=== PATIENT | female | born 1935 | race Caucasian/White ===

== ENCOUNTER → 2017-03-22 | Outpatient (CLI) | payer MEDICARE, BC ==
--- NOTE | 2017-03-22 23:29 | XR ---
EXAMINATION TYPE: XR chest 2V DATE OF EXAM: 03/22/2017 COMPARISON: NONE INDICATION: Dyspnea history of right breast cancer TECHNIQUE: Frontal and lateral views of the chest are obtained. FINDINGS: The heart size is normal. The pulmonary vasculature is normal. The lungs are clear. There is increased area of density in the retrocardiac region. Some air appears to be within loops of bowel in this region. 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 Hiatal hernia could be considered. IMPRESSION: 1. No acute pulmonary process. 2. 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 Hiatal hernia could be within the differential.
--- NOTE | 2017-03-28 07:29 | USB ---
Reason for exam: clinical finding. Indicated problem(s): other indicated problem in both breasts. Physical Findings: Nurse Summary: A limited breast exam was performed patient states too painful (nurse kp). US Breast BILAT Left breast ultrasound includes all four quadrants, the retroareolar region and axilla. Finding demonstrates no cystic or solid lesion seen. Right breast ultrasound demonstrates no cystic or solid lesion seen. These results were verbally communicated with the patient and result sheet given to the patient on 03/22/17. ASSESSMENT: Negative, BI-RAD 1 RECOMMENDATION: Routine screening mammogram of the left breast. Back on schedule, no priors here. Manage on a clinical basis with regard to pain.
== END | disposition home or self-care (01) ==
LOC: RADUSWWP 09:26
PROVIDERS: ATTEND Family Medicine
DX: R06.00 Dyspnea, unspecified (principal); Z85.3 Personal history of malignant neoplasm of breast
CPT/HCPCS: 71020

== ENCOUNTER 2017-04-01 11:26 | Inpatient (IN) | payer MEDICARE, BC ==
[2017-04-01] MEDS ORDERED: SODIUM CHLORIDE 0.9% 1,000 ML IV STA (11:59)
[2017-04-01] MEDS ORDERED: methylPREDNISolone SOD SUCCI 125 MG/2 ML VIAL IV STA (11:59)
[2017-04-01] MEDS ORDERED: IPRATROPIUM-ALBUTEROL 3 ML NEB INHALATION STA ×2 (11:59→13:16)
--- NOTE | 2017-04-01 12:03 | ED ---
SOB HPI - General Chief Complaint: Shortness of Breath Stated Complaint: KRISTA Time Seen by Provider: 04/01/17 11:45 Source: patient, family, RN notes reviewed Mode of arrival: wheelchair Limitations: no limitations - History of Present Illness Initial Comments: This is a 82-year-old female history of COPD who had the onset last evening of shortness of breath she has had a nonproductive cough some rhinorrhea no reports of fever though she did have a 99 temperature on arrival here today. She denies any chest pain or other symptoms at this time. She does feel weak however and again she does have the progressive dyspnea. MD Complaint: shortness of breath, cough - Related Data Home Medications Medication Instructions Recorded Confirmed Furosemide [Lasix] 40 mg PO DAILY 04/01/17 04/01/17 Levothyroxine Sodium [Synthroid] 50 mcg PO DAILY 04/01/17 04/01/17 Potassium Chloride [K-Tab ER] 10 meq PO DAILY 04/01/17 04/01/17 Raloxifene [Evista] 60 mg PO DAILY 04/01/17 04/01/17 Allergies Allergy/AdvReac Type Severity Reaction Status Date / Time No Known Allergies Allergy Verified 04/01/17 11:56 Review of Systems ROS Statement: Those systems with pertinent positive or pertinent negative responses have been documented in the HPI. ROS Other: All systems not noted in ROS Statement are negative. 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 History of Any Multi-Drug Resistant Organisms: None Reported Additional Past Surgical History / Comment(s): right mastectomy Past Psychological History: No Psychological Hx Reported Smoking Status: Never smoker Past Alcohol Use History: None Reported Past Drug Use History: None Reported General Exam - General Exam Comments Initial Comments: This a well-developed well-nourished awake alert oriented 3 female Limitations: no limitations General appearance: alert, in no apparent distress Head exam: Present: atraumatic, normocephalic, normal inspection Eye exam: Present: normal appearance, PERRL, EOMI. Absent: scleral icterus, conjunctival injection, periorbital swelling ENT exam: Present: mucous membranes dry Neck exam: Present: normal inspection. Absent: tenderness, meningismus, lymphadenopathy Respiratory exam: Present: wheezes, decreased breath sounds. Absent: respiratory distress, rales, rhonchi, stridor Cardiovascular Exam: Present: regular rate, normal rhythm, normal heart sounds. Absent: systolic murmur, diastolic murmur, rubs, gallop, clicks GI/Abdominal exam: Present: soft, normal bowel sounds. Absent: distended, tenderness, guarding, rebound, rigid Extremities exam: Present: normal inspection, full ROM, normal capillary refill. Absent: tenderness, pedal edema, joint swelling, calf tenderness Back exam: Present: normal inspection Neurological exam: Present: alert, oriented X3, CN II-XII intact Psychiatric exam: Present: normal affect, normal mood Skin exam: Present: warm, dry, intact, normal color. Absent: rash Course Vital Signs 04/01/17 04/01/17 04/01/17 11:35 12:07 12:17 Temperature 99.5 F Pulse Rate 105 H 94 89 Respiratory 20 Rate Blood Pressure 133/67 O2 Sat by Pulse 97 Oximetry 04/01/17 04/01/17 04/01/17 12:23 12:53 13:20 Temperature Pulse Rate 86 80 86 Respiratory Rate Blood Pressure 131/91 129/70 O2 Sat by Pulse 91 L 93 L Oximetry 04/01/17 04/01/17 13:23 13:29 Temperature Pulse Rate 88 Respiratory Rate Blood Pressure O2 Sat by Pulse 99 Oximetry - Reevaluation(s) Reevaluation #1: 04/01/17 14:07 I did reevaluate patient several occasions she is getting little improvement in her ability to breathe or saturation appears be adequate Medical Decision Making - Medical Decision Making Patient continues had difficult breathing cough in spite of the medication was given. Patient will be admitted I did discuss case with Dr. Zhong. - Lab Data Result diagrams: 04/01/17 11:55 04/01/17 11:55 Lab Results 04/01/17 04/01/17 04/01/17 Range/Units 11:55 11:55 11:55 WBC 8.1 (3.8-10.6) k/uL RBC 4.28 (3.80-5.40) m/uL Hgb 13.0 (11.4-16.0) gm/dL Hct 40.5 (34.0-46.0) % MCV 94.8 (80.0-100.0) fL MCH 30.3 (25.0-35.0) pg MCHC 32.0 (31.0-37.0) g/dL RDW 13.8 (11.5-15.5) % Plt Count 276 (150-450) k/uL Neutrophils % 63 % Lymphocytes % 23 % Monocytes % 8 % Eosinophils % 2 % Basophils % 1 % Neutrophils # 5.0 (1.3-7.7) k/uL Lymphocytes # 1.9 (1.0-4.8) k/uL Monocytes # 0.6 (0-1.0) k/uL Eosinophils # 0.2 (0-0.7) k/uL Basophils # 0.1 (0-0.2) k/uL PT (9.0-12.0) sec INR (<1.2) APTT (22.0-30.0) sec Sodium 143 (137-145) mmol/L Potassium 3.9 (3.5-5.1) mmol/L Chloride 108 H (98-107) mmol/L Carbon Dioxide 26 (22-30) mmol/L Anion Gap 9 mmol/L BUN 21 H (7-17) mg/dL Creatinine 0.97 (0.52-1.04) mg/dL Est GFR (MDRD) Af Amer >60 (>60 ml/min/1.73 sqM) Est GFR (MDRD) Non-Af 55 (>60 ml/min/1.73 sqM) Glucose 169 H (74-99) mg/dL Calcium 9.3 (8.4-10.2) mg/dL Magnesium 2.1 (1.6-2.3) mg/dL Total Bilirubin 0.2 (0.2-1.3) mg/dL AST 24 (14-36) U/L ALT 27 (9-52) U/L Alkaline Phosphatase 58 (38-126) U/L Total Creatine Kinase 119 (30-135) U/L CK-MB (CK-2) 1.7 (0.0-2.4) ng/mL CK-MB (CK-2) Rel Index 1.4 Troponin I <0.012 (0.000-0.034) ng/mL NT-Pro-B Natriuret Pep pg/mL Total Protein 7.1 (6.3-8.2) g/dL Albumin 4.0 (3.5-5.0) g/dL Influenza Type A RNA (Not Detectd) Influenza Type B (PCR) (Not Detectd) 04/01/17 04/01/17 04/01/17 Range/Units 11:55 11:55 12:14 WBC (3.8-10.6) k/uL RBC (3.80-5.40) m/uL Hgb (11.4-16.0) gm/dL Hct (34.0-46.0) % MCV (80.0-100.0) fL MCH (25.0-35.0) pg MCHC (31.0-37.0) g/dL RDW (11.5-15.5) % Plt Count (150-450) k/uL Neutrophils % % Lymphocytes % % Monocytes % % Eosinophils % % Basophils % % Neutrophils # (1.3-7.7) k/uL Lymphocytes # (1.0-4.8) k/uL Monocytes # (0-1.0) k/uL Eosinophils # (0-0.7) k/uL Basophils # (0-0.2) k/uL PT 9.9 (9.0-12.0) sec INR 1.0 (<1.2) APTT 21.5 L (22.0-30.0) sec Sodium (137-145) mmol/L Potassium (3.5-5.1) mmol/L Chloride (98-107) mmol/L Carbon Dioxide (22-30) mmol/L Anion Gap mmol/L BUN (7-17) mg/dL Creatinine (0.52-1.04) mg/dL Est GFR (MDRD) Af Amer (>60 ml/min/1.73 sqM) Est GFR (MDRD) Non-Af (>60 ml/min/1.73 sqM) Glucose (74-99) mg/dL Calcium (8.4-10.2) mg/dL Magnesium (1.6-2.3) mg/dL Total Bilirubin (0.2-1.3) mg/dL AST (14-36) U/L ALT (9-52) U/L Alkaline Phosphatase (38-126) U/L Total Creatine Kinase (30-135) U/L CK-MB (CK-2) (0.0-2.4) ng/mL CK-MB (CK-2) Rel Index Troponin I (0.000-0.034) ng/mL NT-Pro-B Natriuret Pep 633 pg/mL Total Protein (6.3-8.2) g/dL Albumin (3.5-5.0) g/dL Influenza Type A RNA Not Detected (Not Detectd) Influenza Type B (PCR) Not Detected (Not Detectd) - EKG Data EKG shows normal: sinus rhythm (Sinus rhythm rate of 94. Interval 144 QRS duration 64 QT since QTC of 360/460 occasional PACs) - Radiology Data Radiology results: report reviewed (I did review the imaging and reports no acute findings.), image reviewed Critical Care Time Critical Care Time: Yes Critical Care Time: 31 minutes of critical care time which includes initial presentation with history physical labs x-rays. Reevaluation patient several occasions. Discussed with patient family regarding findings discussed with the main physician admission orders and documentation of the above. Disposition Clinical Impression: Acute exacerbation of chronic obstructive airways disease, Adult respiratory distress syndrome Disposition: ADMITTED IP TO THIS HOSP Condition: Stable Referrals: Victor Hugo Zhong MD [Primary Care Provider] - 1-2 days
[2017-04-01 12:17] LABS: Basophils # (A) 0.1 k/uL (0-0.2); Basophils % (A) 1 %; Eosinophils # (A) 0.2 k/uL (0-0.7); Eosinophils % (A) 2 %; HCT 40.5 % (34.0-46.0); Lymphocytes # (A) 1.9 k/uL (1.0-4.8); Lymphocytes % (A) 23 %; MCH 30.3 pg (25.0-35.0); MCV 94.8 fL (80.0-100.0); Mean Platelet Volume 7.1; Monocytes # (A) 0.6 k/uL (0-1.0); Monocytes % (A) 8 %; Neutrophils % (A) 63 %; Platelet Count 276 k/uL (150-450); RBC 4.28 m/uL (3.80-5.40); RDW 13.8 % (11.5-15.5); WBC 8.1 k/uL (3.8-10.6)
[2017-04-01 12:28] LABS: ALT 27 U/L (9-52); AST 24 U/L (14-36); Alkaline Phosphatase 58 U/L (38-126); Anion Gap 9 mmol/L; Blood Urea Nitrogen 21 mg/dL (7-17); Calcium 9.3 mg/dL (8.4-10.2); Carbon Dioxide 26 mmol/L (22-30); Chloride 108 mmol/L (98-107); Glucose 169 mg/dL (74-99); Magnesium 2.1 mg/dL (1.6-2.3); Partial Thromboplastin Time 21.5 sec (22.0-30.0); Potassium 3.9 mmol/L (3.5-5.1); Prothrombin Time 9.9 sec (9.0-12.0); Sodium 143 mmol/L (137-145); Total Bilirubin 0.2 mg/dL (0.2-1.3); Total Protein 7.1 g/dL (6.3-8.2)
[2017-04-01 12:36] LABS: Creatine Kinase 119 U/L (30-135)
--- NOTE | 2017-04-01 12:46 | XR ---
EXAMINATION TYPE: XR chest 2V DATE OF EXAM: 04/01/2017 COMPARISON: 03/22/2017 HISTORY: Short of breath TECHNIQUE: Frontal and lateral views of the chest are obtained. FINDINGS: There is a large hiatal hernia. Lungs are clear. Heart size is normal. There is thoracolum bar kyphotic curvature. There is no sign of pleural effusion. There is no heart failure. Thoracic aor ta is atheromatous. IMPRESSION: No active cardiopulmonary disease. Large hiatal hernia. No change.
[2017-04-01 12:48] LABS: Creatine Kinase MB 1.7 ng/mL (0.0-2.4); Troponin I <0.012 ng/mL (0.000-0.034)
[2017-04-01 15:18] VITALS: BMI 24.3
[2017-04-01] MEDS: IPRATROPIUM-ALBUTEROL 3 ML NEB INHALATION SCH ×2 (15:58→20:49)
[2017-04-01] MEDS: SODIUM CHLORIDE 0.9% 1,000 ML IV SCH (16:27)
[2017-04-01 16:47] LABS: Glucose,Whole Blood 225 mg/dL (75-99)
[2017-04-01] MEDS: methylPREDNISolone SOD SUCCI 125 MG/2 ML VIAL IV SCH ×2 (17:45→22:40)
[2017-04-01] MEDS: INSULIN ASPART 100 UNIT/ML 1 ML 10 ML VIAL SQ SCH ×2 (17:45→22:29)
[2017-04-01] MEDS ORDERED: RX INFO: IV CONTRAST WAS GIVEN 1 EACH MISC MISCELLANE PRN (18:00)
--- NOTE | 2017-04-01 20:31 | CT ---
EXAMINATION TYPE: CT chest w con DATE OF EXAM: 04/01/2017 COMPARISON: 01/26/2016 HISTORY: shortness of breath CT DLP: 246.8 mGycm Automated exposure control for dose reduction was used. CONTRAST: CT scan of the chest is performed with IV Contrast, patient injected with 80 mL of Visipaque 320. FINDINGS: There is a very large hiatal hernia. Heart size is normal. There is no pericardial effusion. The lung s are clear of consolidation. There is no evidence of a pulmonary mass. There is some atelectasis adj acent to the hiatal hernia. There is no mediastinal adenopathy. There is degenerative spurring throug hout the thoracic spine. There is a 1 cm calcified granuloma in the left lower lobe. There are spondy lotic changes in the thoracic spine. I see no definite focal bone destruction. IMPRESSION: Very large hiatal hernia. 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 No significant change compared to old exam.
[2017-04-01 21:01] LABS: Glucose,Whole Blood 221 mg/dL (75-99)
[2017-04-01] MEDS ORDERED: IPRATROPIUM-ALBUTEROL 3 ML NEB INHALATION PRN (21:36)
[2017-04-01 22:54] LABS: Hemoglobin A1C 5.6 % (4.0-6.0)
--- NOTE | 2017-04-01 23:27 | HP ---
HISTORY AND PHYSICAL CHIEF COMPLAINT: Shortness of breath in this 82-year-old white female. HISTORY OF PRESENT ILLNESS: 82-year-old white female who is states she has had a chronic cough for multiple months. She was supposed to get a nebulizer machine delivered to her house, which was never delivered. She has had worsening cough and congestion over the past few days. Temperature about 99. She has a barking type cough. She feels weak and short of breath. She is saturating in the high 90s on 2 L oxygen. She normally does not wear oxygen at home. No hemoptysis, melena, or medication. No leg swelling or edema. HOME MEDICATIONS: Include Lasix 40 mg daily, Synthroid 50 mcg daily, potassium chloride 10 mEq daily. Evista 60 mg daily. ALLERGIES: Negative. REVIEW OF SYSTEMS: Fourteen point review of systems negative except for mentioned in HPI. PAST MEDICAL HISTORY: COPD, hypothyroidism, history of breast cancer, bone cancer, right hand. She has had right mastectomy. SOCIAL HISTORY: Does not smoke or drink alcohol or do illicit drugs. PHYSICAL EXAM: White female with a barking type cough. She looks her stated age. She is alert and orient x3. Psych: Fair mood and affect. Cardiovascular S1, S2. Lungs transmitted upper air sounds. GI soft nontender. Hematologic: No mass, organomegaly. Hematology negative Homans. Psych: Fair mood and affect. Vascular: Normal dorsalis pedis, posterior tibial, radial pulse. Ophthalmologic: Pupils equal, round, reactive to light and accommodation. NEUROLOGIC: Alert and orient x3. GI soft. Skin shows poor skin turgor. Temp 99.5, pulse is in low 90s to 100, blood pressure 130s over 60s, O2 97% on room air. Cardiovascular S1, S2. Chest x-ray is negative. D-dimer was just done and is elevated. I will order CT scan of the chest tonight to rule out PE and rule out pneumonia although that is not seen on the chest x-ray. ASSESSMENT: 1. Acute hypoxemic respiratory failure, acute hypoxemia of unclear etiology. 2. Adult respiratory distress syndrome. 3. Hyperglycemia, possibly due to steroids. 4. Will do Accu-Chek protocol. 5. Continue home medications. 6. Updraft treatments will be given and we will set up a home nebulizer. 7. Await CT of the chest report. MMODL / IJN: [id number] /
[2017-04-02] MEDS: methylPREDNISolone SOD SUCCI 125 MG/2 ML VIAL IV SCH ×4 (05:51→23:47)
[2017-04-02] MEDS: LEVOTHYROXINE 50 MCG TAB PO SCH (05:52)
[2017-04-02 07:35] LABS: Glucose,Whole Blood 161 mg/dL (75-99)
[2017-04-02] MEDS: IPRATROPIUM-ALBUTEROL 3 ML NEB INHALATION SCH ×4 (07:43→19:25)
[2017-04-02] MEDS: POTASSIUM CHLORIDE ER 10 MEQ TAB.ER.PRT PO SCH (07:52)
[2017-04-02] MEDS: INSULIN ASPART 100 UNIT/ML 1 ML 10 ML VIAL SQ SCH ×4 (07:52→21:37)
[2017-04-02] MEDS: FUROSEMIDE 40 MG TAB PO SCH (07:52)
[2017-04-02] MEDS: RALOXIFENE 60 MG TAB PO SCH (07:53)
[2017-04-02] MEDS: MAG HYDROX/AL HYDROX/SIMETH 30 ML, LIDOCAINE VISCOUS 30 ML, diphenhydrAMINE ELIXIR 75 M... PO SCH ×12 (09:03→21:38)
[2017-04-02] MEDS: cefTRIAXone IN SWFI 1,000 MG/10 ML SYRINGE IVP SCH (09:04)
[2017-04-02] MEDS: AZITHROMYCIN 500 MG in SODIUM CHLORIDE 0.9% 250 ML IVPB SCH (09:11)
[2017-04-02] MEDS: guaiFENesin SYRUP 100MG/5ML 200 MG/10 ML CUP PO PRN ×2 (12:09→21:50)
[2017-04-02 12:31] LABS: Glucose,Whole Blood 260 mg/dL (75-99)
[2017-04-02] MEDS: SODIUM CHLORIDE 0.9% 1,000 ML IV SCH (15:33)
[2017-04-02] MEDS ORDERED: ALPRAZolam 0.25 MG TAB PO STA (16:26)
[2017-04-02 17:04] LABS: Glucose,Whole Blood 207 mg/dL (75-99)
[2017-04-02 21:12] LABS: Glucose,Whole Blood 245 mg/dL (75-99)
[2017-04-02] MEDS: ALPRAZolam 0.25 MG TAB PO PRN (21:50)
--- NOTE | 2017-04-03 05:51 | PN ---
PROGRESS NOTE SUBJECTIVE: This is a white female admitted with COPD exacerbation, large hiatal hernia, acute tracheobronchitis, acute hypoxemic respiratory distress. CT scan of the chest reviewed with the patient. Continues to have congestive cough. CARDIOVASCULAR: S1, S2. LUNGS: Scattered wheeze x4, scattered rhonchi. HEMATOLOGY: Negative Homans. ASSESSMENT: 1. Chronic obstructive pulmonary disease exacerbation. 2. Acute tracheobronchitis. 3. Acute hypoxemic respiratory distress. 4. Large hiatal hernia. Surgical repair will be needed. Large hiatal hernia as it is making her have chronic cough and congestion, worsening currently at this time with hypoxemia and noncompliance at home as patient was unable to give nebulizer with updraft treatments. Will have to set her up with nebulizers and go home and possible discharge home in the next 2-3 days. JUSTO / MIKEYN: [id number] /
[2017-04-03] MEDS: methylPREDNISolone SOD SUCCI 125 MG/2 ML VIAL IV SCH ×4 (06:03→23:14)
[2017-04-03] MEDS: LEVOTHYROXINE 50 MCG TAB PO SCH (06:03)
[2017-04-03] MEDS: IPRATROPIUM-ALBUTEROL 3 ML NEB INHALATION SCH ×4 (07:41→19:11)
[2017-04-03 07:50] LABS: Glucose,Whole Blood 179 mg/dL (75-99)
[2017-04-03] MEDS: RALOXIFENE 60 MG TAB PO SCH (08:19)
[2017-04-03] MEDS: POTASSIUM CHLORIDE ER 10 MEQ TAB.ER.PRT PO SCH (08:19)
[2017-04-03] MEDS: INSULIN ASPART 100 UNIT/ML 1 ML 10 ML VIAL SQ SCH ×4 (08:20→20:46)
[2017-04-03] MEDS: FUROSEMIDE 40 MG TAB PO SCH (08:20)
[2017-04-03] MEDS: MAG HYDROX/AL HYDROX/SIMETH 30 ML, LIDOCAINE VISCOUS 30 ML, diphenhydrAMINE ELIXIR 75 M... PO SCH ×12 (08:21→20:48)
[2017-04-03] MEDS: cefTRIAXone IN SWFI 1,000 MG/10 ML SYRINGE IVP SCH (08:27)
[2017-04-03] MEDS: guaiFENesin SYRUP 100MG/5ML 200 MG/10 ML CUP PO PRN (08:31)
[2017-04-03] MEDS: AZITHROMYCIN 500 MG in SODIUM CHLORIDE 0.9% 250 ML IVPB SCH (08:50)
[2017-04-03] MEDS: ALPRAZolam 0.25 MG TAB PO PRN ×2 (11:04→18:30)
[2017-04-03 12:25] LABS: Glucose,Whole Blood 115 mg/dL (75-99)
--- NOTE | 2017-04-03 14:38 | P.CNPUL ---
History of Present Illness Consult date: 04/03/17 Reason for consult: dyspnea, cough, COPD, abnormal CXR/CT Chief complaint: Shortness of breath and intermittent cough going on for 7-10 days History of present illness: Mr. Isabel is a pleasant 82-year-old female with no significant history of smoking and nicotine use, patient presented into the emergency department with 7 -10 day history of progressive increased shortness of breath and cough which is dry and nonproductive she was more short of breath and eventually was seen eval reexamined in the emergency department has been admitted to the hospital for acute COPD exacerbation. She underwent a chest x-ray and EKG as well as a spiral computed tomography scan of the chest the chest x-ray has been reviewed findings are suggestive of COPD-like changes a large hiatal hernia however seen which is confirmed on CAT scan a calcified nodule in left lower lobe has been noted as well he still feels short of breath and continued to have intermittent dry nonproductive cough. So has a significant hypoxia as well, it appears that the large hiatal hernia is compromising her respiratory status and causing more short of breath as well as intermittent cough. As she recalls she has ongoing symptoms of this for extended period of time she has been recently prescribed nebulizer therapy and has not received it yet Review of Systems All systems: negative Constitutional: Reports as per HPI, Reports fatigue, Reports poor appetite Eyes: denies as per HPI Ears: deny: decreased hearing Ears, nose, mouth and throat: Reports as per HPI Breasts: absent: as per HPI Cardiovascular: Reports as per HPI Respiratory: Reports as per HPI Gastrointestinal: Reports as per HPI Genitourinary: Reports as per HPI Menstruation: Reports as per HPI Musculoskeletal: Reports as per HPI Integumentary: Reports as per HPI Neurological: Reports as per HPI Psychiatric: Reports as per HPI Endocrine: Reports as per HPI Hematologic/Lymphatic: Reports as per HPI Allergic/Immunologic: Reports as per HPI Past Medical History Past Medical History: Heart Failure, COPD, GERD/Reflux, Thyroid Disorder Additional Past Medical History / Comment(s): breast ca, bone cancer, 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 Past Anesthesia/Blood Transfusion Reactions: No Reported Reaction Past Psychological History: No Psychological Hx Reported Smoking Status: Never smoker Past Alcohol Use History: None Reported Past Drug Use History: None Reported - Past Family History Father Additional Family Medical History / Comment(s): heart disease. Mother Additional Family Medical History / Comment(s): heart disease. Medications and Allergies Home Medications Medication Instructions Recorded Confirmed Type Furosemide [Lasix] 40 mg PO DAILY 04/01/17 04/01/17 History Levothyroxine Sodium [Synthroid] 50 mcg PO DAILY 04/01/17 04/01/17 History Potassium Chloride [K-Tab ER] 10 meq PO DAILY 04/01/17 04/01/17 History Raloxifene [Evista] 60 mg PO DAILY 04/01/17 04/01/17 History Allergies Allergy/AdvReac Type Severity Reaction Status Date / Time No Known Allergies Allergy Verified 04/01/17 11:56 Physical Exam Vitals: Vital Signs Temp Pulse Pulse Resp BP Pulse Ox 04/03/17 11:47 100 04/03/17 11:35 100 04/03/17 08:08 97.5 F L 98 20 140/86 98 04/03/17 07:53 100 04/03/17 07:41 100 04/02/17 23:00 97.9 F 115 H 20 153/95 94 L 04/02/17 19:36 124 H 04/02/17 19:25 120 H 04/02/17 16:24 92 04/02/17 16:11 84 04/02/17 15:27 97.3 F L 111 H 19 126/67 97 Intake and Output 04/02/17 04/03/17 04/03/17 22:59 06:59 14:59 Intake Total 1400 960 Output Total 300 Balance -300 1400 960 Intake: Oral 1400 960 Output: Urine 300 Other: Voiding Method Toilet # Voids 4 3 3 # Bowel Movements 2 Weight 72.5 kg 75.07 kg - Constitutional General appearance: average body habitus, cooperative, mild distress, no acute distress - EENT Eyes: EOMI, PERRLA, normal appearance Ears: bilateral: normal - Neck Neck: normal ROM Carotids: negative: upstroke normal, upstroke diminished, bruit absent Thyroid: bilateral: normal size - Respiratory Respiratory: bilateral: CTA, diminished, negative: dullness, rales, rhonchi, wheezing, prolonged expiration, prolonged inspiration - Cardiovascular Rhythm: regular Heart sounds: normal: S1, S2 - Gastrointestinal General gastrointestinal: normal bowel sounds - Integumentary Integumentary: normal turgor - Musculoskeletal Congenital absence of the right hand Musculoskeletal: gait normal, strength equal bilaterally - Psychiatric Psychiatric: A&O x's 3 Results - Laboratory Findings CBC and BMP: 04/01/17 11:55 04/01/17 11:55 PT/INR, D-dimer PT 9.9 sec (9.0-12.0) 04/01/17 11:55 INR 1.0 (<1.2) 04/01/17 11:55 D-Dimer 0.94 mg/L FEU (<0.60) H 04/01/17 11:55 Abnormal lab findings: Abnormal Labs 04/01/17 04/01/17 04/01/17 11:55 11:55 11:55 APTT 21.5 L D-Dimer 0.94 H Chloride 108 H BUN 21 H Glucose 169 H POC Glucose (mg/dL) 04/01/17 04/01/17 04/02/17 16:44 20:58 07:21 APTT D-Dimer Chloride BUN Glucose POC Glucose (mg/dL) 225 H 221 H 161 H 04/02/17 04/02/17 04/02/17 12:20 16:57 21:06 APTT D-Dimer Chloride BUN Glucose POC Glucose (mg/dL) 260 H 207 H 245 H 04/03/17 04/03/17 07:24 12:04 APTT D-Dimer Chloride BUN Glucose POC Glucose (mg/dL) 179 H 115 H - Diagnostic Findings Chest x-ray: report reviewed, image reviewed, other CT scan - chest: report reviewed, image reviewed (COPD-like changes, left lower lobe calcified nodule, large hiatal hernia) Assessment and Plan Assessment: Acute COPD exacerbation, Acute on chronic hypoxic respiratory failure related to above Purulent tracheobronchitis Large hiatal hernia with respiratory compromise associated with that Left lower lobe calcified nodule History of breast cancer and hypothyroidism Plan: Agree with breathing treatments steroids and antibiotics, patient will likely need a formal evaluation of COPD and likely chronic persistent asthma on outpatient setting, will monitor observe left lower lobe nodule with active intervention needed given the appearance likely benign, given that ongoing symptoms of cough shortness of breath and nonsmoker nature symptom may very well be associated with large hiatal hernia Agree with surgical evaluation will monitor observe and follow with you. As always be appreciated involving us in care of your patient Time with Patient: Greater than 30
--- NOTE | 2017-04-03 15:32 | P.GSCN ---
<Connie Aguilar - Last Filed: 04/03/17 15:20> History of Present Illness Consult date: 04/03/17 Reason for Consult: Hiatal hernia History of present illness: 82-year-old female seen at the request of the attending for surgical eval after a CAT scan of the chest showed a large hiatal hernia. Patient is sitting up on the edge of the bed had eaten a piece of birthday cake. Patient reports when she eats usually washes it down "with a glass of water" pulmonary participating in the plan of care as well. Pulmonary service indicates that the large hiatal hernia could be compromising respiratory status. Patient's initial presentation to the emergency room was shortness of breath with intermittent cough pulmonary treating patient for an acute exacerbation of COPD. According to the patient's symptoms have been ongoing for the past several months. 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 Past Anesthesia/Blood Transfusion Reactions: No Reported Reaction Past Psychological History: No Psychological Hx Reported Smoking Status: Never smoker Past Alcohol Use History: None Reported Past Drug Use History: None Reported - Past Family History Father Additional Family Medical History / Comment(s): heart disease. Mother Additional Family Medical History / Comment(s): heart disease. Medications and Allergies Home Medications Medication Instructions Recorded Confirmed Type Furosemide [Lasix] 40 mg PO DAILY 04/01/17 04/01/17 History Levothyroxine Sodium [Synthroid] 50 mcg PO DAILY 04/01/17 04/01/17 History Potassium Chloride [K-Tab ER] 10 meq PO DAILY 04/01/17 04/01/17 History Raloxifene [Evista] 60 mg PO DAILY 04/01/17 04/01/17 History Allergies Allergy/AdvReac Type Severity Reaction Status Date / Time No Known Allergies Allergy Verified 04/01/17 11:56 Surgical - Exam Vital Signs Temp Pulse Resp BP Pulse Ox 99.5 F 105 H 20 133/67 97 04/01/17 11:35 04/01/17 11:35 04/01/17 11:35 04/01/17 11:35 04/01/17 11:35 GENERAL APPEARANCE: 82 year old female patient is alert, oriented 3, in no acute distress. Hard of hearing VITAL SIGNS: Reviewed HEENT: Head is normocephalic and atraumatic. Pupils are equal and reactive. The nares are patent. Oropharynx is clear without lesions. NECK: Supple without lymphadenopathy. Traches midline. HEART: S1, S2. Regular rate and rhythm. LUNGS: Posterior diminished at the bases poor air entry upper airways no wheezing rales or rhonchi noted no cough noted ABDOMEN: Soft, nontender, nondistended with good bowel sounds. No peritoneal signs. No palpable organomegaly or masses. EXTREMITIES: Normal skin color and turgor. No cyanosis, rash, ulceration, clubbing or edema. Radial pedal pulses are 2/4 bilaterally. Right hand absent congenital NEUROLOGICAL: No focal deficits. Strength and sensation are grossly intact. Results - Labs 04/01/17 11:55 04/01/17 11:55 Abnormal Lab Results - Last 24 Hours (Table) 04/02/17 04/02/17 04/03/17 Range/Units 16:57 21:06 07:24 POC Glucose (mg/dL) 207 H 245 H 179 H (75-99) mg/dL 04/03/17 Range/Units 12:04 POC Glucose (mg/dL) 115 H (75-99) mg/dL Assessment and Plan Plan: Impression Present on admission shortness of breath multifactorial suspect due to an acute exacerbation of COPD with a large hiatal hernia Acute on chronic hypoxic respiratory failure suspect due to acute exacerbation COPD CAT scan of the chest show large hiatal hernia suspect respiratory compromise Hypothyroid on supplements purulent tracheobronchitis Plan Aspiration precautions Patient will need an EGD as part of a workup if Patient wants to pursue addressing the hiatal hernia Continue pulmonary workup Further surgical recommendations pending will follow with you DVT GI prophylaxis The above impression and plan of care have been discussed and directed by signing physician. Connie Aguilar nurse practitioner acting as scribe for signing physician. <Kadie Erwin - Last Filed: 04/03/17 20:55> History of Present Illness History of present illness: Patient and her daughters at bedside. Patient denies any troubles with eating her birthday cake and drinking water. In fact, symptoms may have been ongoing for several years. Patient was admitted for large diaphragmatic hiatal hernia. She is not been treated for gastroesophageal reflux disease. Review of Systems REVIEW OF ORGAN SYSTEMS: CONSTITUTIONAL: Denies any fever or chills. Denies recent weight loss or weight gain. HEENT: Denies any trouble with vision, hearing or nosebleeds. No difficulty swallowing. LYMPHATIC: The patient denies any lumps and bumps around the neck. ENDOCRINE: Has thyroid disorders. Denies any blood sugar glucose intolerance. RESPIRATORY: Has troubles with breathing or dyspnea on exertion. Has COPD. CARDIOVASCULAR: Denies any chest pain, palpitations, or recent heart attacks. Has heart failure. GASTROINTESTINAL: Denies heart burn, constipation or bright red blood per rectum. GENITOURINARY: Denies any blood in urine or increased urinary frequency. MUSCULOSKELETAL: Has back pain, stiffness, joint arthritis. 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 NEUROLOGIC: Denies any numbness or tingling along the distal extremities. No seizure disorders or headaches. PSYCHIATRIC: Denies depression or suidical ideation. HEMATOLOGIC: Denies any abnormal bleeding or bruising. History of bone cancer. BREASTS: Previous history of breast cancer. Surgical - Exam Vital Signs Temp Pulse Resp BP Pulse Ox 99.5 F 105 H 20 133/67 97 04/01/17 11:35 04/01/17 11:35 04/01/17 11:35 04/01/17 11:35 04/01/17 11:35 GENERAL: Well developed and in no acute distress. Pleasant. HEENT: No sclera icterus. Extraocular movements grossly intact. Moist buccal mucosa. Head is atraumatic, normocephalic. Hears conversational speech. No nasal drainage. NECK: Supple without lymphadenopathy. No JV distention. CHEST: Non-labored respirations and equal bilateral excursions. CARDIOVASCULAR: Regular rate and rhythm. Palpable 2+ radial pulses. ABDOMEN: Soft, Nondistended. Minimal tenderness along the epigastrium. MUSCULOSKELETAL: No clubbing, cyanosis or edema. Agenesis of the right hand. NEUROLOGIC: No focal or lateralizing signs. PSYCH: Appropriate affect. Alert and oriented to person, place and time. SKIN: Good skin turgor. Well perfused. Results - Labs 04/01/17 11:55 04/01/17 11:55 Abnormal Lab Results - Last 24 Hours (Table) 04/02/17 04/03/17 04/03/17 Range/Units 21:06 07:24 12:04 POC Glucose (mg/dL) 245 H 179 H 115 H (75-99) mg/dL 04/03/17 04/03/17 Range/Units 17:24 20:33 POC Glucose (mg/dL) 401 H 100 H (75-99) mg/dL - Imaging CT scan - chest: report reviewed (Type IV paraesophageal diaphragmatic hiatal hernia.), image reviewed Assessment and Plan (1) Paraesophageal hernia Current Visit: Yes Status: Acute Code(s): K44.9 - DIAPHRAGMATIC HERNIA WITHOUT OBSTRUCTION OR GANGRENE SNOMED Code(s): 9606617 (2) GERD (gastroesophageal reflux disease) Current Visit: Yes Status: Acute Code(s): K21.9 - GASTRO-ESOPHAGEAL REFLUX DISEASE WITHOUT ESOPHAGITIS SNOMED Code(s): 764251759 (3) Acute exacerbation of chronic obstructive airways disease Current Visit: Yes Status: Acute Code(s): J44.1 - CHRONIC OBSTRUCTIVE PULMONARY DISEASE W (ACUTE) EXACERBATION SNOMED Code(s): 386063329 Plan: 1. On review her medications, she is not on antacid. Exacerbated COPD may be caused by untreated GERD. I started her on Protonix. 2. She does not demonstrate any acute findings of gastric volvulus hence no acute surgical intervention at this time. Workup and surgical intervention may perform as an outpatient. 3. Recommend potential discharge home once medically stable with omeprazole or protonix. 4. Patient may follow up with surgeon as an outpatient for paraesophageal hiatal hernia repair. All questions were discussed with the patient and her family Time with Patient: Greater than 30
[2017-04-03] MEDS ORDERED: PANTOPRAZOLE 40 MG TABLET PO STA (16:53)
[2017-04-03] MEDS: HEPARIN SODIUM,PORCINE 5,000 UNIT/ML 1 ML VIAL SQ SCH ×2 (17:46→23:14)
[2017-04-03 17:47] LABS: Glucose,Whole Blood 401 mg/dL (75-99)
[2017-04-03 20:35] LABS: Glucose,Whole Blood 100 mg/dL (75-99)
[2017-04-03] MEDS ORDERED: FAMOTIDINE 20 MG TAB PO SCH (21:00)
--- NOTE | 2017-04-03 23:02 | PN ---
PROGRESS NOTE SUBJECTIVE: This is a white female with chronic cough, congestion, shortness of breath. Pulmonary has been consulted, Dr. Shaffer at this time. She had a CT scan shows large hiatal hernia which may be contributing to her chronic cough. She may need to surgically operated on. Consult with surgery is pending. Dr. Conde. Lungs show scattered rhonchi and wheeze, barking type cough. Cardiovascular S1, S2. Abdomen increased bowel sounds up into the chest area. Hematology negative Homans. ASSESSMENT: 1. Acute hypoxemic respiratory distress. 2. Acute tracheobronchitis. 3. Chronic obstructive pulmonary disease exacerbation. 4. Large hiatal hernia, possible surgical intervention will be needed as an outpatient. Continue with IV steroids, updraft treatments. Pulmonology is being consulted. MMODL / IJN: [id number] /
[2017-04-04] MEDS: LEVOTHYROXINE 50 MCG TAB PO SCH (05:21)
[2017-04-04] MEDS: methylPREDNISolone SOD SUCCI 125 MG/2 ML VIAL IV SCH (05:21)
[2017-04-04 07:47] LABS: Glucose,Whole Blood 163 mg/dL (75-99)
[2017-04-04] MEDS: IPRATROPIUM-ALBUTEROL 3 ML NEB INHALATION SCH ×4 (07:49→19:30)
[2017-04-04] MEDS: MAG HYDROX/AL HYDROX/SIMETH 30 ML, LIDOCAINE VISCOUS 30 ML, diphenhydrAMINE ELIXIR 75 M... PO SCH ×12 (08:16→20:48)
[2017-04-04] MEDS: AZITHROMYCIN 500 MG in SODIUM CHLORIDE 0.9% 250 ML IVPB SCH (08:16)
[2017-04-04] MEDS: cefTRIAXone IN SWFI 1,000 MG/10 ML SYRINGE IVP SCH (08:16)
[2017-04-04] MEDS: RALOXIFENE 60 MG TAB PO SCH (08:17)
[2017-04-04] MEDS: PANTOPRAZOLE 40 MG TABLET PO SCH ×2 (08:17→16:56)
[2017-04-04] MEDS: INSULIN ASPART 100 UNIT/ML 1 ML 10 ML VIAL SQ SCH ×4 (08:17→20:47)
[2017-04-04] MEDS: FUROSEMIDE 40 MG TAB PO SCH (08:17)
[2017-04-04] MEDS: POTASSIUM CHLORIDE ER 10 MEQ TAB.ER.PRT PO SCH (08:17)
[2017-04-04] MEDS: HEPARIN SODIUM,PORCINE 5,000 UNIT/ML 1 ML VIAL SQ SCH ×3 (08:17→23:23)
[2017-04-04] MEDS: ALPRAZolam 0.25 MG TAB PO PRN (08:17)
--- NOTE | 2017-04-04 11:17 | P.PN ---
Subjective Progress Note Date: 04/04/17 82-year-old female seen and examined. Currently resting in bed. Patient states breathing feels slightly improved. Currently denying any difficulty in swallowing when questioning. Patients being followed by surgery at the request of the attending after CAT scan of the chest showed a large hiatal hernia. Patient states she will follow-up with the surgeon in the outpatient setting to address the hiatal hernia Objective - Vital Signs Vital signs: Vital Signs Temp 96.6 F L 04/04/17 07:00 Pulse 100 04/04/17 08:00 Resp 16 04/04/17 07:00 BP 148/69 04/04/17 07:00 Pulse Ox 98 04/04/17 07:00 Intake & Output 04/03/17 04/04/17 04/04/17 18:59 06:59 18:59 Intake Total 960 Balance 960 Weight 75 kg Intake: Oral 960 Other: Voiding Method Toilet # Voids 3 3 1 # Bowel Movements 1 - Exam Physical exam 82-year-old female resting in bed appears in no acute distress talkative currently states will follow-up with surgeon in the outpatient setting Lungs diminished posteriorly at the bases otherwise adequate air movement no wheezing noted no cough noted Heart S1-S2 audible regular Abdomen soft not distended reports no nausea vomiting no difficulty in swallowing Extremities absent right hand no pedal edema - Labs CBC & Chem 7: 04/01/17 11:55 04/01/17 11:55 Labs: Abnormal Lab Results - Last 24 Hours (Table) 04/03/17 04/03/17 04/03/17 Range/Units 12:04 17:24 20:33 POC Glucose (mg/dL) 115 H 401 H 100 H (75-99) mg/dL 04/04/17 Range/Units 07:20 POC Glucose (mg/dL) 163 H (75-99) mg/dL Assessment and Plan Plan: Impression Present on admission shortness of breath multifactorial suspect due to an acute exacerbation of COPD with a large hiatal hernia Acute on chronic hypoxic respiratory failure suspect due to acute exacerbation COPD CAT scan of the chest show large hiatal hernia suspect respiratory compromise Hypothyroid on supplements purulent tracheobronchitis Esophageal reflux disease Periesophageal hernia Plan Aspiration precautions Patient will need an EGD as part of a workup if Patient wants to pursue addressing the hiatal hernia Continue pulmonary workup Patient does not demonstrate any acute findings of gastric volvulus events no acute surgical intervention at this time workup and surgical intervention may be done an outpatient setting Discussed with patient and daughter patient could be followed up with surgeon in the outpatient setting for eval possible periesophageal hiatal hernia repair Monitor patient on protonic COPD could be exacerbated by untreated GERD DVT GI prophylaxis Dr. gabo johnson on behalf of Dr. Fields The above impression and plan of care have been discussed and directed by signing physician. Connie Aguilar nurse practitioner acting as scribe for signing physician.
--- NOTE | 2017-04-04 11:26 | P.PN ---
Subjective Progress Note Date: 04/04/17 04/04/16- patient is being seen and examined and evaluated today on rounds. The patient continues to be short of breath with exertion and activity. She does have congested cough with white sputum. Upon examination the patient's resting up in bed on 2 L of supplemental oxygen via nasal cannula. However the patient states she feels less short of breath than previous days and is slowly improving. Patient was being worked up by surgical services for large hiatal hernia repair which will be done in the outpatient setting. She is afebrile, has a stable appetite. No further complaints. All labs and reports have been reviewed. Family is at bedside and has been updated on plan of care. 04/03/16- Mrs. Whiting is a pleasant 82-year-old female with no significant history of smoking and nicotine use, patient presented into the emergency department with 7-10 day history of progressive increased shortness of breath and cough which is dry and nonproductive she was more short of breath and eventually was seen eval reexamined in the emergency department has been admitted to the hospital for acute COPD exacerbation. She underwent a chest x- ray and EKG as well as a spiral computed tomography scan of the chest the chest x-ray has been reviewed findings are suggestive of COPD-like changes a large hiatal hernia however seen which is confirmed on CAT scan a calcified nodule in left lower lobe has been noted as well he still feels short of breath and continued to have intermittent dry nonproductive cough. So has a significant hypoxia as well, it appears that the large hiatal hernia is compromising her respiratory status and causing more short of breath as well as intermittent cough. As she recalls she has ongoing symptoms of this for extended period of time she has been recently prescribed nebulizer therapy and has not received it yet Objective - Vital Signs Vital signs: Vital Signs Temp 96.6 F L 04/04/17 07:00 Pulse 100 04/04/17 08:00 Resp 16 04/04/17 07:00 BP 148/69 04/04/17 07:00 Pulse Ox 98 04/04/17 07:00 Intake & Output 04/03/17 04/04/17 04/04/17 18:59 06:59 18:59 Intake Total 960 Balance 960 Weight 75 kg Intake: Oral 960 Other: Voiding Method Toilet # Voids 3 3 1 # Bowel Movements 1 - Exam - Constitutional General appearance: average body habitus, cooperative, mild distress, no acute distress - EENT Eyes: EOMI, PERRLA, normal appearance Ears: bilateral: normal - Neck Neck: normal ROM Carotids: negative: upstroke normal, upstroke diminished, bruit absent Thyroid: bilateral: normal size - Respiratory Respiratory: bilateral: CTA, diminished, slightly course, negative: dullness, rales, rhonchi, wheezing, prolonged expiration, prolonged inspiration - Cardiovascular Rhythm: regular Heart sounds: normal: S1, S2 - Gastrointestinal General gastrointestinal: normal bowel sounds - Integumentary Integumentary: normal turgor - Musculoskeletal Congenital absence of the right hand Musculoskeletal: gait normal, strength equal bilaterally - Psychiatric Psychiatric: A&O x's 3 - Labs CBC & Chem 7: 04/01/17 11:55 04/01/17 11:55 Labs: Abnormal Lab Results - Last 24 Hours (Table) 04/03/17 04/03/17 04/03/17 Range/Units 12:04 17:24 20:33 POC Glucose (mg/dL) 115 H 401 H 100 H (75-99) mg/dL 04/04/17 Range/Units 07:20 POC Glucose (mg/dL) 163 H (75-99) mg/dL Assessment and Plan Plan: Assessment: Acute COPD exacerbation, Acute on chronic hypoxic respiratory failure related to above Purulent tracheobronchitis Large hiatal hernia with respiratory compromise associated with that Left lower lobe calcified nodule History of breast cancer and hypothyroidism Plan: Medications have been reviewed. Agree with breathing treatments, begin to taper steroids, antibiotics as ordered. patient will likely need a formal evaluation of COPD and likely chronic persistent asthma on outpatient setting, will monitor observe left lower lobe nodule with active intervention needed given the appearance likely benign, given that ongoing symptoms of cough shortness of breath and nonsmoker nature symptom may very well be associated with large hiatal hernia. Agree with surgical evaluation will monitor observe and follow with you. Continue with GI and DVT prophylaxis. Initiate and encourage incentive spirometer. Plan of care is discussed with patient and family members at length. As always be appreciated involving us in care of your patient I performed an examination of the patient and discussed their management with the nurse practitioner. I have reviewed the nurse practitioner's note and agree with the documented findings and plan of care.
[2017-04-04 12:33] LABS: Glucose,Whole Blood 331 mg/dL (75-99)
[2017-04-04] MEDS: methylPREDNISolone SOD SUCCI 40 MG/ML 1 ML VIAL IV SCH ×2 (16:56→23:23)
[2017-04-04 17:23] LABS: Glucose,Whole Blood 220 mg/dL (75-99)
[2017-04-04 20:32] LABS: Glucose,Whole Blood 133 mg/dL (75-99)
--- NOTE | 2017-04-04 23:09 | PN ---
PROGRESS NOTE SUBJECTIVE: This is a white female with COPD exacerbation and tracheobronchitis who continues with congestive cough. She has a large hiatal hernia for which surgical intervention may be needed down the road. Breathing is slightly improving every day, but she still has congested cough and wheezing. CARDIOVASCULAR: S1, S2. Lungs reveal scattered wheeze x4. HEMATOLOGY: Negative Homans'. PSYCH: Fair mood and affect. OPHTHALMOLOGIC: Pupils equal, round, reactive to light and accommodation. ASSESSMENT: 1. Chronic obstructive pulmonary disease exacerbation. 2. Tracheobronchitis. 3. Acute hypoxemic respiratory distress. 4. Hiatal hernia. Continue on IV steroids, IV antibiotics. Surgical intervention may be needed. Await surgical opinion. MMODL / IJN: [id number] /
[2017-04-05] MEDS: LEVOTHYROXINE 50 MCG TAB PO SCH (06:09)
[2017-04-05] MEDS: IPRATROPIUM-ALBUTEROL 3 ML NEB INHALATION SCH ×4 (07:30→19:44)
[2017-04-05 07:35] LABS: Glucose,Whole Blood 153 mg/dL (75-99)
[2017-04-05] MEDS: INSULIN ASPART 100 UNIT/ML 1 ML 10 ML VIAL SQ SCH ×4 (08:05→22:04)
[2017-04-05] MEDS: PANTOPRAZOLE 40 MG TABLET PO SCH ×2 (08:05→16:46)
[2017-04-05] MEDS: FUROSEMIDE 40 MG TAB PO SCH (08:06)
[2017-04-05] MEDS: POTASSIUM CHLORIDE ER 10 MEQ TAB.ER.PRT PO SCH (08:06)
[2017-04-05] MEDS: MAG HYDROX/AL HYDROX/SIMETH 30 ML, LIDOCAINE VISCOUS 30 ML, diphenhydrAMINE ELIXIR 75 M... PO SCH ×12 (08:06→22:05)
[2017-04-05] MEDS: RALOXIFENE 60 MG TAB PO SCH (08:06)
[2017-04-05] MEDS: methylPREDNISolone SOD SUCCI 40 MG/ML 1 ML VIAL IV SCH ×3 (08:06→23:20)
[2017-04-05] MEDS: HEPARIN SODIUM,PORCINE 5,000 UNIT/ML 1 ML VIAL SQ SCH ×3 (08:06→23:20)
[2017-04-05] MEDS: AZITHROMYCIN 500 MG in SODIUM CHLORIDE 0.9% 250 ML IVPB SCH (08:16)
[2017-04-05] MEDS: cefTRIAXone IN SWFI 1,000 MG/10 ML SYRINGE IVP SCH (08:23)
[2017-04-05 12:54] LABS: Glucose,Whole Blood 147 mg/dL (75-99)
--- NOTE | 2017-04-05 13:32 | P.PN ---
Subjective Progress Note Date: 04/05/17 04/05/16- patient is being seen and examined and evaluated today on rounds. The patient continues to be short of breath with exertion and activity. She does have congested cough with white sputum. Upon examination the patient's resting up in bed on 2 L of supplemental oxygen via nasal cannula. Will assess for the need of home oxygen. Patient also needs scripts for nebulizer machine. Patient was being worked up by surgical services for large hiatal hernia repair which will be done in the outpatient setting. She is afebrile, has a stable appetite. No further complaints. All labs and reports have been reviewed. 04/04/16- patient is being seen and examined and evaluated today on rounds. The patient continues to be short of breath with exertion and activity. She does have congested cough with white sputum. Upon examination the patient's resting up in bed on 2 L of supplemental oxygen via nasal cannula. However the patient states she feels less short of breath than previous days and is slowly improving. Patient was being worked up by surgical services for large hiatal hernia repair which will be done in the outpatient setting. She is afebrile, has a stable appetite. No further complaints. All labs and reports have been reviewed. Family is at bedside and has been updated on plan of care. 04/03/16- Mrs. Whiting is a pleasant 82-year-old female with no significant history of smoking and nicotine use, patient presented into the emergency department with 7-10 day history of progressive increased shortness of breath and cough which is dry and nonproductive she was more short of breath and eventually was seen eval reexamined in the emergency department has been admitted to the hospital for acute COPD exacerbation. She underwent a chest x- ray and EKG as well as a spiral computed tomography scan of the chest the chest x-ray has been reviewed findings are suggestive of COPD-like changes a large hiatal hernia however seen which is confirmed on CAT scan a calcified nodule in left lower lobe has been noted as well he still feels short of breath and continued to have intermittent dry nonproductive cough. So has a significant hypoxia as well, it appears that the large hiatal hernia is compromising her respiratory status and causing more short of breath as well as intermittent cough. As she recalls she has ongoing symptoms of this for extended period of time she has been recently prescribed nebulizer therapy and has not received it yet Objective - Vital Signs Vital signs: Vital Signs Temp 97.3 F L 04/05/17 07:00 Pulse 92 04/05/17 11:41 Resp 16 04/05/17 07:00 BP 132/69 04/05/17 07:00 Pulse Ox 100 04/05/17 07:32 Intake & Output 04/04/17 04/05/17 04/05/17 18:59 06:59 18:59 Intake Total 250 Balance 250 Weight 73.5 kg Intake: Intake, IV Titration 250 Amount Azithromycin 500 mg In 250 Sodium Chloride 0.9% 250 ml @ 125 mls/hr IVPB DAILY [facility] Rx#:[id number] Other: Voiding Method Toilet # Voids 1 3 - Exam - Constitutional General appearance: average body habitus, cooperative, mild distress, no acute distress - EENT Eyes: EOMI, PERRLA, normal appearance Ears: bilateral: normal - Neck Neck: normal ROM Carotids: negative: upstroke normal, upstroke diminished, bruit absent Thyroid: bilateral: normal size - Respiratory Respiratory: bilateral: CTA, diminished, slightly course, negative: dullness, rales, rhonchi, wheezing, prolonged expiration, prolonged inspiration - Cardiovascular Rhythm: regular Heart sounds: normal: S1, S2 - Gastrointestinal General gastrointestinal: normal bowel sounds - Integumentary Integumentary: normal turgor - Musculoskeletal Congenital absence of the right hand Musculoskeletal: gait normal, strength equal bilaterally - Psychiatric Psychiatric: A&O x's 3 - Labs CBC & Chem 7: 04/01/17 11:55 04/01/17 11:55 Labs: Abnormal Lab Results - Last 24 Hours (Table) 04/04/17 04/04/17 04/05/17 Range/Units 17:15 20:30 07:26 POC Glucose (mg/dL) 220 H 133 H 153 H (75-99) mg/dL 04/05/17 Range/Units 12:26 POC Glucose (mg/dL) 147 H (75-99) mg/dL Assessment and Plan Plan: Assessment: Acute COPD exacerbation, Acute on chronic hypoxic respiratory failure related to above Purulent tracheobronchitis Large hiatal hernia with respiratory compromise associated with that Left lower lobe calcified nodule History of breast cancer and hypothyroidism Plan: Medications have been reviewed. Agree with breathing treatments, begin to taper steroids, antibiotics as ordered. Script for nebulizer machine provided. patient will likely need a formal evaluation of COPD and likely chronic persistent asthma on outpatient setting, will monitor observe left lower lobe nodule with active intervention needed given the appearance likely benign, given that ongoing symptoms of cough shortness of breath and nonsmoker nature symptom may very well be associated with large hiatal hernia. Agree with surgical evaluation will monitor observe and follow with you. Continue with GI and DVT prophylaxis. Initiate and encourage incentive spirometer. Plan of care is discussed with patient and family members at length. As always be appreciated involving us in care of your patient I performed an examination of the patient and discussed their management with the nurse practitioner. I have reviewed the nurse practitioner's note and agree with the documented findings and plan of care.
--- NOTE | 2017-04-05 13:48 | P.PN ---
<Enedelia Aguilarkeon Kwong - Last Filed: 04/05/17 13:36> Subjective Progress Note Date: 04/05/17 82-year-old female sitting up in bed receiving respiratory treatment. Patient states she's not having any difficulty in swallowing. Reinforce to the patient surgical workup for the large hiatal hernia will be done in the outpatient setting. Patient is being followed by pulmonary service for an acute exacerbation of COPD. Patient states breathing feels improved. Objective - Vital Signs Vital signs: Vital Signs Temp 97.3 F L 04/05/17 07:00 Pulse 92 04/05/17 11:41 Resp 16 04/05/17 07:00 BP 132/69 04/05/17 07:00 Pulse Ox 100 04/05/17 07:32 Intake & Output 04/04/17 04/05/17 04/05/17 18:59 06:59 18:59 Intake Total 250 Balance 250 Weight 73.5 kg Intake: Intake, IV Titration 250 Amount Azithromycin 500 mg In 250 Sodium Chloride 0.9% 250 ml @ 125 mls/hr IVPB DAILY [facility] Rx#:[id number] Other: Voiding Method Toilet # Voids 1 3 - Exam Physical exam 82-year-old female sitting up receiving a respiratory treatment appears in no acute distress Lungs posterior diminished at the bases otherwise adequate air movement no wheezing heart S1-S2 audible regular Abdomen soft nontender tolerating a diet no reports the nausea problem vomiting reports no difficulty in swallowing Extremities no edema - Labs CBC & Chem 7: 04/01/17 11:55 04/01/17 11:55 Labs: Abnormal Lab Results - Last 24 Hours (Table) 04/04/17 04/04/17 04/05/17 Range/Units 17:15 20:30 07:26 POC Glucose (mg/dL) 220 H 133 H 153 H (75-99) mg/dL 04/05/17 Range/Units 12:26 POC Glucose (mg/dL) 147 H (75-99) mg/dL Assessment and Plan Plan: Impression Present on admission shortness of breath multifactorial suspect due to an acute exacerbation of COPD with a large hiatal hernia Acute on chronic hypoxic respiratory failure suspect due to acute exacerbation COPD CAT scan of the chest show large hiatal hernia suspect respiratory compromise Hypothyroid on supplements purulent tracheobronchitis Esophageal reflux disease Periesophageal hernia Plan Aspiration precautions Continue pulmonary workup Patient does not demonstrate any acute findings of gastric volvulus events no acute surgical intervention at this time workup and surgical intervention may be done an outpatient setting Discussed with patient and daughter patient could be followed up with surgeon in the outpatient setting for eval possible periesophageal hiatal hernia repair Monitor patient on protonix COPD could be exacerbated by untreated GERD DVT GI prophylaxis No further inpatient surgical workup this admission as indicated workup will be done in the outpatient setting. Defer to the timing of the discharge to the attending The above impression and plan of care have been discussed and directed by signing physician. Connie Aguilar nurse practitioner acting as scribe for signing physician. <Kadie Erwin N - Last Filed: 04/05/17 18:43> Objective - Vital Signs Vital signs: Vital Signs Temp 97.5 F L 04/05/17 15:00 Pulse 98 04/05/17 15:37 Resp 16 04/05/17 15:00 BP 115/67 04/05/17 15:00 Pulse Ox 93 L 04/05/17 15:00 Intake & Output 04/04/17 04/05/17 04/05/17 18:59 06:59 18:59 Intake Total 250 Balance 250 Weight 73.5 kg Intake: Intake, IV Titration 250 Amount Azithromycin 500 mg In 250 Sodium Chloride 0.9% 250 ml @ 125 mls/hr IVPB DAILY [facility] Rx#:[id number] Other: Voiding Method Toilet # Voids 1 3 3 - Exam GENERAL: Well developed and in no acute distress. Pleasant. HEENT: No sclera icterus. Extraocular movements grossly intact. Moist buccal mucosa. Head is atraumatic, normocephalic. Hears conversational speech. No nasal drainage. NECK: Supple without lymphadenopathy. CHEST: Non-labored respirations and equal bilateral excursions. CARDIOVASCULAR: Regular rate and rhythm. Palpable 2+ radial pulses. ABDOMEN: Soft, nontender. Nondistended. MUSCULOSKELETAL: No clubbing, cyanosis or edema. Agenesis of the right hand. NEUROLOGIC: No focal or lateralizing signs. PSYCH: Appropriate affect. Alert and oriented to person, place and time. SKIN: Good skin turgor. Well perfused. - Labs CBC & Chem 7: 04/01/17 11:55 04/01/17 11:55 Labs: Abnormal Lab Results - Last 24 Hours (Table) 01/07/1704/05/17 04/05/17 Range/Units 20:30 07:26 12:26 POC Glucose (mg/dL) 133 H 153 H 147 H (75-99) mg/dL 04/05/17 Range/Units 16:57 POC Glucose (mg/dL) 148 H (75-99) mg/dL Assessment and Plan (1) Paraesophageal hernia Current Visit: Yes Status: Acute Code(s): K44.9 - DIAPHRAGMATIC HERNIA WITHOUT OBSTRUCTION OR GANGRENE SNOMED Code(s): 7898570 (2) GERD (gastroesophageal reflux disease) Current Visit: Yes Status: Acute Code(s): K21.9 - GASTRO-ESOPHAGEAL REFLUX DISEASE WITHOUT ESOPHAGITIS SNOMED Code(s): 256035177 (3) Acute exacerbation of chronic obstructive airways disease Current Visit: Yes Status: Acute Code(s): J44.1 - CHRONIC OBSTRUCTIVE PULMONARY DISEASE W (ACUTE) EXACERBATION SNOMED Code(s): 543185085 Plan: 1. From a surgical standpoint, patient may have outpatient evaluation for paraesophageal hiatal hernia. She will need pulmonary clearance for any surgical intervention. 2. As gastroesophageal reflux disease can exacerbate COPD, outpatient antacid therapy has been prescribed. 3. Patient reports her shortness of breath has resolved. 4. Patient may be discharged from a surgical standpoint with outpatient follow- up when medically stable.
[2017-04-05 17:00] LABS: Glucose,Whole Blood 148 mg/dL (75-99)
[2017-04-05 21:00] LABS: Glucose,Whole Blood 170 mg/dL (75-99)
[2017-04-06] MEDS: LEVOTHYROXINE 50 MCG TAB PO SCH (06:46)
[2017-04-06 07:38] LABS: Glucose,Whole Blood 97 mg/dL (75-99)
[2017-04-06] MEDS: INSULIN ASPART 100 UNIT/ML 1 ML 10 ML VIAL SQ SCH ×4 (07:42→20:49)
[2017-04-06] MEDS: cefTRIAXone IN SWFI 1,000 MG/10 ML SYRINGE IVP SCH (08:15)
[2017-04-06] MEDS: RALOXIFENE 60 MG TAB PO SCH (08:16)
[2017-04-06] MEDS: MAG HYDROX/AL HYDROX/SIMETH 30 ML, LIDOCAINE VISCOUS 30 ML, diphenhydrAMINE ELIXIR 75 M... PO SCH ×12 (08:16→20:49)
[2017-04-06] MEDS: FUROSEMIDE 40 MG TAB PO SCH (08:16)
[2017-04-06] MEDS: POTASSIUM CHLORIDE ER 10 MEQ TAB.ER.PRT PO SCH (08:16)
[2017-04-06] MEDS: HEPARIN SODIUM,PORCINE 5,000 UNIT/ML 1 ML VIAL SQ SCH ×3 (08:16→23:09)
[2017-04-06] MEDS: PANTOPRAZOLE 40 MG TABLET PO SCH ×2 (08:16→17:55)
[2017-04-06] MEDS: AZITHROMYCIN 500 MG TAB PO SCH (08:16)
[2017-04-06] MEDS: methylPREDNISolone SOD SUCCI 40 MG/ML 1 ML VIAL IV SCH ×3 (08:16→23:09)
--- NOTE | 2017-04-06 08:17 | PN ---
PROGRESS NOTE SUBJECTIVE: This is a white female with COPD exacerbation, tracheobronchitis, large hiatal hernia. Surgical consult was appreciated with Dr. Conde. Possible surgery as an outpatient. The patient's cough and congestion continues. Continue with IV Rocephin, IV Zithromax and IV Solu-Medrol. VITAL SIGNS: Stable, afebrile CARDIOVASCULAR: S1, S2. LUNGS: Scattered rhonchi and wheeze x4. HEMATOLOGY: Negative Homans. PSYCH: Fair mood and effect. ASSESSMENT: 1. Chronic obstructive pulmonary disease exacerbation and tracheobronchitis. 2. Acute on chronic hypoxemic respiratory failure. Continue with IV steroids, IV antibiotics of Rocephin and Zithromax. Updraft treatments with DuoNeb. Please see further orders. MMODL / IJN: [id number] /
[2017-04-06] MEDS: IPRATROPIUM-ALBUTEROL 3 ML NEB INHALATION SCH ×4 (08:22→20:36)
[2017-04-06 12:01] LABS: Glucose,Whole Blood 154 mg/dL (75-99)
--- NOTE | 2017-04-06 13:16 | P.PN ---
Subjective Progress Note Date: 04/06/17 Principal diagnosis: Acute COPD exacerbation, severe symptomatic hiatal hernia, chronic intermittent chemical aspiration 04/06/17, patient seen and evaluated examined during the rounds she is clinically doing better cuff shortness of breath is improved she is being treated with breathing treatments steroids and antibiotics which are gradually being titrated down she has been evaluated by surgical services plan for repair of hiatal hernia pending on outpatient basis patient would likely need a pulmonary function testing and other basic pulmonary evaluation prior to that we 'll set her up for 04/05/16- patient is being seen and examined and evaluated today on rounds. The patient continues to be short of breath with exertion and activity. She does have congested cough with white sputum. Upon examination the patient's resting up in bed on 2 L of supplemental oxygen via nasal cannula. Will assess for the need of home oxygen. Patient also needs scripts for nebulizer machine. Patient was being worked up by surgical services for large hiatal hernia repair which will be done in the outpatient setting. She is afebrile, has a stable appetite. No further complaints. All labs and reports have been reviewed. 04/04/16- patient is being seen and examined and evaluated today on rounds. The patient continues to be short of breath with exertion and activity. She does have congested cough with white sputum. Upon examination the patient's resting up in bed on 2 L of supplemental oxygen via nasal cannula. However the patient states she feels less short of breath than previous days and is slowly improving. Patient was being worked up by surgical services for large hiatal hernia repair which will be done in the outpatient setting. She is afebrile, has a stable appetite. No further complaints. All labs and reports have been reviewed. Family is at bedside and has been updated on plan of care. 04/03/16- Mrs. Whiting is a pleasant 82-year-old female with no significant history of smoking and nicotine use, patient presented into the emergency department with 7-10 day history of progressive increased shortness of breath and cough which is dry and nonproductive she was more short of breath and eventually was seen eval reexamined in the emergency department has been admitted to the hospital for acute COPD exacerbation. She underwent a chest x- ray and EKG as well as a spiral computed tomography scan of the chest the chest x-ray has been reviewed findings are suggestive of COPD-like changes a large hiatal hernia however seen which is confirmed on CAT scan a calcified nodule in left lower lobe has been noted as well he still feels short of breath and continued to have intermittent dry nonproductive cough. So has a significant hypoxia as well, it appears that the large hiatal hernia is compromising her respiratory status and causing more short of breath as well as intermittent cough. As she recalls she has ongoing symptoms of this for extended period of time she has been recently prescribed nebulizer therapy and has not received it yet Objective - Vital Signs Vital signs: Vital Signs Temp 96.4 F L 04/06/17 07:00 Pulse 96 04/06/17 11:56 Resp 18 04/06/17 07:00 BP 164/80 04/06/17 07:00 Pulse Ox 94 L 04/06/17 08:23 Intake & Output 04/05/17 04/06/17 04/06/17 18:59 06:59 18:59 Weight 72 kg Other: # Voids 3 1 1 - Exam - Constitutional General appearance: average body habitus, cooperative, mild distress, no acute distress - EENT Eyes: EOMI, PERRLA, normal appearance Ears: bilateral: normal - Neck Neck: normal ROM Carotids: negative: upstroke normal, upstroke diminished, bruit absent Thyroid: bilateral: normal size - Respiratory Respiratory: bilateral: CTA, diminished, slightly course, negative: dullness, rales, rhonchi, wheezing, prolonged expiration, prolonged inspiration - Cardiovascular Rhythm: regular Heart sounds: normal: S1, S2 - Gastrointestinal General gastrointestinal: normal bowel sounds - Integumentary Integumentary: normal turgor - Musculoskeletal Congenital absence of the right hand Musculoskeletal: gait normal, strength equal bilaterally - Psychiatric Psychiatric: A&O x's 3 - Labs CBC & Chem 7: 04/01/17 11:55 04/01/17 11:55 Labs: Abnormal Lab Results - Last 24 Hours (Table) 04/05/17 04/05/17 04/06/17 Range/Units 16:57 20:59 11:59 POC Glucose (mg/dL) 148 H 170 H 154 H (75-99) mg/dL Assessment and Plan Assessment: Acute COPD exacerbation, Acute on chronic hypoxic respiratory failure related to above Purulent tracheobronchitis Large hiatal hernia with respiratory compromise associated with that Left lower lobe calcified nodule History of breast cancer and hypothyroidism Plan: Agree with breathing treatments steroids and antibiotics, patient will likely need a formal evaluation of COPD and likely chronic persistent asthma on outpatient setting, will monitor observe left lower lobe nodule with active intervention needed given the appearance likely benign, given that ongoing symptoms of cough shortness of breath and nonsmoker nature symptom may very well be associated with large hiatal hernia Agree with surgical evaluation will monitor observe and follow with you. As always be appreciated involving us in care of your patient Time with Patient: Greater than 30
[2017-04-06 17:23] LABS: Glucose,Whole Blood 224 mg/dL (75-99)
[2017-04-06 20:40] LABS: Glucose,Whole Blood 155 mg/dL (75-99)
[2017-04-07] MEDS: LEVOTHYROXINE 50 MCG TAB PO SCH (06:47)
[2017-04-07 07:21] LABS: Glucose,Whole Blood 159 mg/dL (75-99)
[2017-04-07] MEDS: IPRATROPIUM-ALBUTEROL 3 ML NEB INHALATION SCH ×4 (08:47→21:27)
--- NOTE | 2017-04-07 09:45 | PN ---
PROGRESS NOTE . SUBJECTIVE: 82-year-old white female with COPD exacerbation acute tracheobronchitis, acute hypoxemic respiratory distress, hiatal hernia of significant nature, surgical intervention will be needed as an outpatient as it is quite severe and causing her chronic cough. She is weaning down on IV steroids, IV antibiotics. She will be possibly discharged home tomorrow on oral antibiotics to follow up in office within a week. Vital signs are reviewed. Cardiovascular S1, S2. Lungs show scattered rhonchi and wheeze. Hematology negative Homans. Psych fair mood and affect. ASSESSMENT: 1. Acute hypoxemic respiratory failure. 2. Chronic obstructive pulmonary disease exacerbation. 3. Acute tracheobronchitis. 4. Hiatal hernia, large. PLAN: Possible discharge home tomorrow. She is clinically improving. Wean steroids. Antibiotics, updraft continued. Nebulized will be needed prior to discharge home. JUSTO / KIARRA: [id number] /
[2017-04-07] MEDS: RALOXIFENE 60 MG TAB PO SCH (09:46)
[2017-04-07] MEDS: FUROSEMIDE 40 MG TAB PO SCH (09:46)
[2017-04-07] MEDS: HEPARIN SODIUM,PORCINE 5,000 UNIT/ML 1 ML VIAL SQ SCH ×3 (09:47→22:23)
[2017-04-07] MEDS: POTASSIUM CHLORIDE ER 10 MEQ TAB.ER.PRT PO SCH (09:47)
[2017-04-07] MEDS: PANTOPRAZOLE 40 MG TABLET PO SCH ×2 (09:47→16:16)
[2017-04-07] MEDS: methylPREDNISolone SOD SUCCI 40 MG/ML 1 ML VIAL IV SCH (09:47)
[2017-04-07] MEDS: AZITHROMYCIN 500 MG TAB PO SCH (09:47)
[2017-04-07] MEDS: cefTRIAXone IN SWFI 1,000 MG/10 ML SYRINGE IVP SCH (09:48)
[2017-04-07] MEDS: INSULIN ASPART 100 UNIT/ML 1 ML 10 ML VIAL SQ SCH ×4 (09:48→22:08)
[2017-04-07] MEDS: guaiFENesin SYRUP 100MG/5ML 200 MG/10 ML CUP PO PRN ×2 (09:49→16:16)
[2017-04-07] MEDS: MAG HYDROX/AL HYDROX/SIMETH 30 ML, LIDOCAINE VISCOUS 30 ML, diphenhydrAMINE ELIXIR 75 M... PO SCH ×12 (09:49→22:10)
[2017-04-07 12:04] LABS: Glucose,Whole Blood 247 mg/dL (75-99)
--- NOTE | 2017-04-07 13:27 | P.PN ---
Subjective Progress Note Date: 04/07/17 Principal diagnosis: Aspiration pneumonia Patient seen and examined covering for Dr. Shaffer. The patient states that her breathing is still not back to baseline. She is having some shortness of breath with exertion. She states her cough is improving. She is concerned about having surgery for her hiatal hernia. Objective - Vital Signs Vital signs: Vital Signs Temp 97.6 F 04/07/17 07:00 Pulse 92 04/07/17 12:04 Resp 18 04/07/17 07:00 BP 176/96 04/07/17 07:00 Pulse Ox 96 04/07/17 08:48 Intake & Output 04/06/17 04/07/17 04/07/17 18:59 06:59 18:59 Weight 73.4 kg Other: Voiding Method Toilet Toilet # Voids 3 2 2 # Bowel Movements 1 - Exam Gen.: Patient is alert and oriented 3, no acute distress Cardiovascular: Regular rate and rhythm, S1/S2 Lungs: Diminished breath sounds bilaterally Abdomen: Soft nontender nondistended positive bowel sounds Extremities: No edema - Labs CBC & Chem 7: 04/01/17 11:55 04/01/17 11:55 Labs: Abnormal Lab Results - Last 24 Hours (Table) 04/06/17 04/06/17 04/07/17 Range/Units 17:16 20:34 07:04 POC Glucose (mg/dL) 224 H 155 H 159 H (75-99) mg/dL 04/07/17 Range/Units 12:00 POC Glucose (mg/dL) 247 H (75-99) mg/dL Assessment and Plan Assessment: Acute exacerbation of COPD Acute on chronic hypoxic respiratory failure Tracheobronchitis A large hiatal hernia Left lower lobe calcified pulmonary nodule History of breast cancer Hypothyroidism O2 to maintain saturation greater than equal to 90% Bronchodilators Steroid taper - DC Solumedrol, start Prednisone taper Antibiotics: Azithromycin and Rocephin Surgical evaluation for hiatal hernia Incentive spirometry and pulmonary hygiene GI and DVT prophylaxis: Protonix and Heparin Outpatient PFT and pulmonary follow up Covering for Dr. Shaffer
[2017-04-07 17:00] LABS: Glucose,Whole Blood 118 mg/dL (75-99)
[2017-04-07 21:27] LABS: Glucose,Whole Blood 226 mg/dL (75-99)
[2017-04-08] MEDS: LEVOTHYROXINE 50 MCG TAB PO SCH (06:31)
[2017-04-08 07:19] LABS: Glucose,Whole Blood 85 mg/dL (75-99)
[2017-04-08] MEDS: INSULIN ASPART 100 UNIT/ML 1 ML 10 ML VIAL SQ SCH ×2 (07:36→12:09)
[2017-04-08 07:51] VITALS: BP 124/68; RESP 18; TEMP 97.1
[2017-04-08] MEDS: cefTRIAXone IN SWFI 1,000 MG/10 ML SYRINGE IVP SCH (08:11)
[2017-04-08] MEDS: AZITHROMYCIN 500 MG TAB PO SCH (08:12)
[2017-04-08] MEDS: PANTOPRAZOLE 40 MG TABLET PO SCH (08:12)
[2017-04-08] MEDS: POTASSIUM CHLORIDE ER 10 MEQ TAB.ER.PRT PO SCH (08:12)
[2017-04-08] MEDS: HEPARIN SODIUM,PORCINE 5,000 UNIT/ML 1 ML VIAL SQ SCH (08:12)
[2017-04-08] MEDS: MAG HYDROX/AL HYDROX/SIMETH 30 ML, LIDOCAINE VISCOUS 30 ML, diphenhydrAMINE ELIXIR 75 M... PO SCH ×4 (08:12)
[2017-04-08] MEDS: FUROSEMIDE 40 MG TAB PO SCH (08:12)
[2017-04-08] MEDS: RALOXIFENE 60 MG TAB PO SCH (08:12)
[2017-04-08] MEDS: IPRATROPIUM-ALBUTEROL 3 ML NEB INHALATION SCH ×2 (08:24→12:01)
[2017-04-08] MEDS ORDERED: HYDROcodone/APAP 5-325MG 1 EACH TAB PO PRN (08:49)
[2017-04-08] MEDS ORDERED: predniSONE 20 MG TAB PO SCH (09:00)
--- NOTE | 2017-04-08 09:55 | PN ---
PROGRESS NOTE SUBJECTIVE: This is an 82-year-old white female with COPD exacerbation, tracheobronchitis, acute hypoxemic respiratory distress, hiatal hernia. The patient will need outpatient hiatal hernia surgery. Due to chronic cough she is going to be set up for nebulizer tomorrow at which time we are going to be able to discharge her home on steroid taper and antibiotics. Her breathing still has congestive cough and shortness of breath but has some improved. Cardiovascular S1-S2. Lungs transmitted upper airway sounds. Scattered wheeze. GI soft. Hematology negative Homans. ASSESSMENT: 1. Severe hiatal hernia. 2. Chronic obstructive pulmonary disease exacerbation. 3. Tracheobronchitis. 4. Acute hypoxemic respiratory distress. Continue with IV steroids, updraft treatments, hiatal hernia repair will be done as outpatient. JUSTO / KIARRA: [id number] /
[2017-04-08 12:04] VITALS: PULSE 88
[2017-04-08 12:11] LABS: Glucose,Whole Blood 116 mg/dL (75-99)
--- NOTE | 2017-04-08 15:40 | DS ---
DISCHARGE SUMMARY DISCHARGE DIAGNOSES: 1. Chronic obstructive pulmonary disease exacerbation. 2. Acute tracheobronchitis. 3. Large hiatal hernia. 4. Acute hypoxemic respiratory failure. 5. Diastolic congestive heart failure. 6. Hypothyroidism. 7. Gastroesophageal reflux disease. 8. Osteoporosis. DISCHARGE MEDICATIONS: Ceftin 500 mg p.o. b.i.d. for a week, Medrol Dosepak, dispense 1, DuoNeb updraft b.i.d., potassium chloride 10 mEq daily, Protonix 40 mg daily, Synthroid 50 mcg daily, Lioresal 0.25 q8 hours p.r.n. Lasix 40 mg daily. CONDITION: Stable. PROGNOSIS: Guarded. Ambulate as tolerated. HOSPITAL COURSE OF EVENTS: 82 -year-old white female came in the hospital with acute hypoxemic respiratory failure, COPD exacerbation, chronic cough and congestion, found to have a large hiatal hernia. Surgical consultation was undertaken. Pulmonary consultation was undertaken. Patient underwent IV Solu-Medrol, updrafts with DuoNeb, IV Rocephin, IV Zithromax. Patient was stabilized from medical standpoint over the next few days. Will need outpatient surgery for large hiatal hernia which is contributing to her acid reflux and chronic cough and COPD exacerbations. She will continue with steroid taper and oral antibiotics for a week. Come to my office in a week. MMODL / IJN: [id number] /
--- NOTE | 2017-04-08 16:28 | P.PN ---
Subjective Progress Note Date: 04/08/17 Principal diagnosis: Acute COPD exacerbation, severe symptomatic hiatal hernia, chronic intermittent chemical aspiration April 2017, patient seen and evaluated exam and clinically doing well her shortness of breath and cough are improved she is being planned for possible discharge later on today no other [place] complains of present she would like to continue using breathing treatment she will undergo further evaluation like PFT outpatient setting 04/06/17, patient seen and evaluated examined during the rounds she is clinically doing better cuff shortness of breath is improved she is being treated with breathing treatments steroids and antibiotics which are gradually being titrated down she has been evaluated by surgical services plan for repair of hiatal hernia pending on outpatient basis patient would likely need a pulmonary function testing and other basic pulmonary evaluation prior to that we 'll set her up for 04/05/16- patient is being seen and examined and evaluated today on rounds. The patient continues to be short of breath with exertion and activity. She does have congested cough with white sputum. Upon examination the patient's resting up in bed on 2 L of supplemental oxygen via nasal cannula. Will assess for the need of home oxygen. Patient also needs scripts for nebulizer machine. Patient was being worked up by surgical services for large hiatal hernia repair which will be done in the outpatient setting. She is afebrile, has a stable appetite. No further complaints. All labs and reports have been reviewed. 04/04/16- patient is being seen and examined and evaluated today on rounds. The patient continues to be short of breath with exertion and activity. She does have congested cough with white sputum. Upon examination the patient's resting up in bed on 2 L of supplemental oxygen via nasal cannula. However the patient states she feels less short of breath than previous days and is slowly improving. Patient was being worked up by surgical services for large hiatal hernia repair which will be done in the outpatient setting. She is afebrile, has a stable appetite. No further complaints. All labs and reports have been reviewed. Family is at bedside and has been updated on plan of care. 04/03/16- Mrs. Whiting is a pleasant 82-year-old female with no significant history of smoking and nicotine use, patient presented into the emergency department with 7-10 day history of progressive increased shortness of breath and cough which is dry and nonproductive she was more short of breath and eventually was seen eval reexamined in the emergency department has been admitted to the hospital for acute COPD exacerbation. She underwent a chest x- ray and EKG as well as a spiral computed tomography scan of the chest the chest x-ray has been reviewed findings are suggestive of COPD-like changes a large hiatal hernia however seen which is confirmed on CAT scan a calcified nodule in left lower lobe has been noted as well he still feels short of breath and continued to have intermittent dry nonproductive cough. So has a significant hypoxia as well, it appears that the large hiatal hernia is compromising her respiratory status and causing more short of breath as well as intermittent cough. As she recalls she has ongoing symptoms of this for extended period of time she has been recently prescribed nebulizer therapy and has not received it yet Objective - Vital Signs Vital signs: Vital Signs Temp 97.1 F L 04/08/17 07:00 Pulse 88 04/08/17 12:15 Resp 18 04/08/17 08:00 BP 124/68 04/08/17 07:00 Pulse Ox 96 04/08/17 07:00 Intake & Output 04/07/17 04/08/17 04/08/17 18:59 06:59 18:59 Intake Total 240 Balance 240 Weight 73 kg Intake: Oral 240 Other: Voiding Method Toilet Toilet # Voids 3 2 2 # Bowel Movements 1 - Exam - Constitutional General appearance: average body habitus, cooperative, mild distress, no acute distress - EENT Eyes: EOMI, PERRLA, normal appearance Ears: bilateral: normal - Neck Neck: normal ROM Carotids: negative: upstroke normal, upstroke diminished, bruit absent Thyroid: bilateral: normal size - Respiratory Respiratory: bilateral: CTA, diminished, slightly course, negative: dullness, rales, rhonchi, wheezing, prolonged expiration, prolonged inspiration - Cardiovascular Rhythm: regular Heart sounds: normal: S1, S2 - Gastrointestinal General gastrointestinal: normal bowel sounds - Integumentary Integumentary: normal turgor - Musculoskeletal Congenital absence of the right hand Musculoskeletal: gait normal, strength equal bilaterally - Psychiatric Psychiatric: A&O x's 3 - Labs CBC & Chem 7: 04/01/17 11:55 04/01/17 11:55 Labs: Abnormal Lab Results - Last 24 Hours (Table) 04/07/17 04/07/17 04/08/17 Range/Units 16:59 21:12 12:06 POC Glucose (mg/dL) 118 H 226 H 116 H (75-99) mg/dL Assessment and Plan Assessment: Acute COPD exacerbation, Acute on chronic hypoxic respiratory failure related to above Purulent tracheobronchitis Large hiatal hernia with respiratory compromise associated with that Left lower lobe calcified nodule History of breast cancer and hypothyroidism Plan: Agree with breathing treatments steroids and antibiotics, patient will likely need a formal evaluation of COPD and likely chronic persistent asthma on outpatient setting, will monitor observe left lower lobe nodule with no active intervention needed given the appearance likely benign, given that ongoing symptoms of cough shortness of breath and nonsmoker nature symptom may very well be associated with large hiatal hernia Agree with surgical evaluation will monitor observe and follow with you. O2 to maintain saturation greater than equal to 90% Bronchodilators Steroid taper with Prednisone taper Antibiotics: Azithromycin as outpatient Surgical evaluation for hiatal hernia Incentive spirometry and pulmonary hygiene GI and DVT prophylaxis: Protonix and Heparin Outpatient PFT and pulmonary follow up As always be appreciated involving us in care of your patient Time with Patient: Greater than 30
== END 2017-04-08 14:32 | disposition home health service (06) | DRG 190 ==
LOC: EC 11:26 → 4MS4W 14:13 → OBSVTOIN 04-04 09:00
PROVIDERS: ADMIT Family Medicine; ATTEND Family Medicine
DX: J44.0 Chronic obstructive pulmonary disease with (acute) lower respiratory infection (principal); J96.21 Acute and chronic respiratory failure with hypoxia; I50.32 Chronic diastolic (congestive) heart failure; K44.9 Diaphragmatic hernia without obstruction or gangrene; K21.9 Gastro-esophageal reflux disease without esophagitis; J45.998 Other asthma; E03.9 Hypothyroidism, unspecified; M81.0 Age-related osteoporosis without current pathological fracture; R91.1 Solitary pulmonary nodule; J20.9 Acute bronchitis, unspecified; J44.1 Chronic obstructive pulmonary disease with (acute) exacerbation; Z79.890 Hormone replacement therapy; Z79.899 Other long term (current) drug therapy; Z85.3 Personal history of malignant neoplasm of breast; Z85.830 Personal history of malignant neoplasm of bone; Z87.891 Personal history of nicotine dependence; Z90.11 Acquired absence of right breast and nipple; Z98.42 Cataract extraction status, left eye; Z98.41 Cataract extraction status, right eye; Z82.49 Family history of ischemic heart disease and other diseases of the circulatory system; Z91.19 Patient's noncompliance with other medical treatment and regimen
CPT/HCPCS: 36415; 71046; 71260; 80053; 82550; 82553; 83036; 83735; 83880; 84484; 85025; 85379; 85610; 85730; 87502; 93005; 94640; 94760; 96361; 96374; 99291

== ENCOUNTER → 2017-05-20 | Outpatient (CLI) | payer MEDICARE, BC ==
[2017-05-20 10:54] LABS: Basophils # (A) 0.1 k/uL (0-0.2); Basophils % (A) 1 %; Eosinophils # (A) 0.2 k/uL (0-0.7); Eosinophils % (A) 3 %; HCT 38.5 % (34.0-46.0); HGB 12.3 gm/dL (11.4-16.0); Lymphocytes # (A) 1.6 k/uL (1.0-4.8); Lymphocytes % (A) 23 %; MCH 30.3 pg (25.0-35.0); MCHC 31.8 g/dL (31.0-37.0); MCV 95.3 fL (80.0-100.0); Mean Platelet Volume 6.9; Monocytes # (A) 0.6 k/uL (0-1.0); Monocytes % (A) 8 %; Neutrophils # (A) 4.3 k/uL (1.3-7.7); Neutrophils % (A) 63 %; Platelet Count 316 k/uL (150-450); RBC 4.04 m/uL (3.80-5.40); RDW 14.6 % (11.5-15.5); WBC 6.9 k/uL (3.8-10.6)
== END | disposition home or self-care (01) ==
LOC: LABPAT 09:17
PROVIDERS: ATTEND Surgery
DX: Z01.812 Encounter for preprocedural laboratory examination (principal); F17.200 Nicotine dependence, unspecified, uncomplicated; D64.9 Anemia, unspecified
CPT/HCPCS: 36415; 85025; 86850; 86900; 86901

== ENCOUNTER 2017-05-26 10:14 | Emergency (ER) | payer MEDICARE, BC ==
[2017-05-26 10:27] VITALS: BP 128/74; PULSE 104; RESP 16; TEMP 98.7
[2017-05-26] MEDS ORDERED: SULFAMETH-TMP DS STARTER PACK 2 TAB BTL PO STA (10:58)
[2017-05-26] MEDS ORDERED: SULFAMETHOX-TMP 800-160MG 1 EACH TAB PO STA (10:58)
--- NOTE | 2017-05-26 11:01 | ED ---
General Adult HPI - General Chief complaint: Skin/Abscess/Foreign Body Stated complaint: Sore on her leg Time Seen by Provider: 05/26/17 10:31 Source: patient, family, RN notes reviewed, old records reviewed Mode of arrival: wheelchair Limitations: no limitations, physical limitation - History of Present Illness Initial comments: This is an 82-year-old female to the ER for evaluation. Patient did say for evaluation regarding abscess. Right alonzo abscess. Patient has been on outpatient antibiotics with no improvement, significant worsening symptoms. Mild pain. Mildly erythematous site. Patient denies fever. Denies any other complications - Related Data Home Medications Medication Instructions Recorded Confirmed Levothyroxine Sodium [Synthroid] 50 mcg PO DAILY 04/01/17 05/26/17 Potassium Chloride [K-Tab ER] 10 meq PO DAILY 04/01/17 05/26/17 Raloxifene [Evista] 60 mg PO DAILY 04/01/17 05/26/17 Ipratropium-Albuterol Nebulize 3 ml INHALATION RT-TID 04/26/17 05/26/17 [Duoneb 0.5 mg-3 mg/3 ml Soln] Furosemide [Lasix] 40 mg PO DAILY 05/20/17 05/26/17 Allergies Allergy/AdvReac Type Severity Reaction Status Date / Time cefuroxime Allergy Unknown Hives Verified 05/26/17 10:40 omeprazole Allergy Unknown Hives Verified 05/26/17 10:40 Review of Systems ROS Statement: Those systems with pertinent positive or pertinent negative responses have been documented in the HPI. ROS Other: All systems not noted in ROS Statement are negative. 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 Past Anesthesia/Blood Transfusion Reactions: No Reported Reaction Past Psychological History: No Psychological Hx Reported Smoking Status: Never smoker Past Alcohol Use History: None Reported Past Drug Use History: None Reported - Past Family History Father Additional Family Medical History / Comment(s): heart disease. Mother Additional Family Medical History / Comment(s): heart disease. Sister(s) Family Medical History: Cancer Additional Family Medical History / Comment(s): 3 SISTERS WITH BREAST CA General Exam - General Exam Comments Initial Comments: Right alonzo abscess, surrounding cellulitis Limitations: no limitations, physical limitation General appearance: alert, in no apparent distress Head exam: Present: atraumatic, normocephalic, normal inspection Eye exam: Present: normal appearance, PERRL, EOMI. Absent: scleral icterus, conjunctival injection, periorbital swelling ENT exam: Present: normal exam, mucous membranes moist Neck exam: Present: normal inspection. Absent: tenderness, meningismus, lymphadenopathy Respiratory exam: Present: normal lung sounds bilaterally. Absent: respiratory distress, wheezes, rales, rhonchi, stridor Cardiovascular Exam: Present: regular rate, normal rhythm, normal heart sounds. Absent: systolic murmur, diastolic murmur, rubs, gallop, clicks GI/Abdominal exam: Present: soft, normal bowel sounds. Absent: distended, tenderness, guarding, rebound, rigid Extremities exam: Present: normal inspection, full ROM, normal capillary refill. Absent: tenderness, pedal edema, joint swelling, calf tenderness Back exam: Present: normal inspection Neurological exam: Present: alert, oriented X3, CN II-XII intact Psychiatric exam: Present: normal affect, normal mood Skin exam: Present: warm, dry, intact, normal color. Absent: rash Course Vital Signs 05/26/17 10:23 Temperature 98.7 F Pulse Rate 104 H Respiratory 16 Rate Blood Pressure 128/74 O2 Sat by Pulse 96 Oximetry - Reevaluation(s) Reevaluation #1: 05/26/17 11:00 Patient's medical records reviewed include prior antibiotic use clindamycin for abscess Procedures - Incision & Drainage Consent Obtained: verbal consent Time Out Performed?: Yes Site: lower extremity Anesthetic Used: lidocaine 1% I&D Cleaning Method: Betadine Sterile Field Used?: Yes Scalpel Used: #11 Needle Aspiration Performed?: Yes Irrigation Performed?: Yes I&D Drainage Obtained: Pus Culture Obtained?: No Patient Tolerated Procedure: well Medical Decision Making - Medical Decision Making 2 female the ER for evaluation of right alonzo pain, positive abscess. Abscess I& D. The ER, patient put on antibiotics and will be discharged home Disposition Clinical Impression: Abscess of right leg Disposition: HOME SELF-CARE Condition: Good Instructions: Abscess (ED), Abscess Incision and Drainage (ED) Referrals: Victor Hugo Zhong MD [Primary Care Provider] - 1-2 days
== END 2017-05-26 11:14 | disposition home or self-care (01) ==
LOC: EC 10:14
DX: L02.415 Cutaneous abscess of right lower limb (principal); Q71.31 Congenital absence of right hand and finger; I50.9 Heart failure, unspecified; J44.9 Chronic obstructive pulmonary disease, unspecified; E07.9 Disorder of thyroid, unspecified; Z79.899 Other long term (current) drug therapy; Z88.1 Allergy status to other antibiotic agents; Z88.8 Allergy status to other drugs, medicaments and biological substances; Z85.3 Personal history of malignant neoplasm of breast; Z90.11 Acquired absence of right breast and nipple
CPT/HCPCS: 10060; 99283

== ENCOUNTER 2017-05-27 06:21 | Day surgery (SDC) | payer MEDICARE, BC ==
[2017-05-20 15:40] VITALS: BMI 25.0
[~2017-05-27 06:21] MED LIST: CLINDAMYCIN 900 MG in DEXTROSE 5% IN WATER 50 ML IVPB ONE; HEPARIN SODIUM,PORCINE 5,000 UNIT/ML 1 ML VIAL SQ ONE; ONDANSETRON 4 MG/2 ML VIAL IVP ONE
[2017-05-27] MEDS ORDERED: LIDOCAINE 1% 20 ML VIAL (10MG/ML) FOR IV START INTRADERMA ONE (07:14)
[2017-05-27] MEDS: LACTATED RINGERS 1,000 ML IV SCH (07:16)
--- NOTE | 2017-05-27 07:51 | P.GSHP ---
History of Present Illness H&P Date: 05/27/17 Chief Complaint: GERD, dysphagia This 82-year-old female referred from Dr. Victor Hugo Ni. NThe patient has had long-standing problems with reflux esophagitis. The patient underwent recent EGD is found have evidence of esophagitis. Patient has been well informed on the procedure of laparoscopic Hudson fundoplication. The patient is aware the risk of the conversion to the open procedure, risk of injury to the stomach, liver and spleen. The patient is also a risk of recurrent GERD and dysphagia symptoms. The patient understands there is a postoperative diet of full liquids for 2 weeks after surgery. 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 Past Anesthesia/Blood Transfusion Reactions: No Reported Reaction Past Psychological History: No Psychological Hx Reported Smoking Status: Never smoker Past Alcohol Use History: None Reported Past Drug Use History: None Reported - Past Family History Father Additional Family Medical History / Comment(s): heart disease. Mother Additional Family Medical History / Comment(s): heart disease. Sister(s) Family Medical History: Cancer Additional Family Medical History / Comment(s): 3 SISTERS WITH BREAST CA Medications and Allergies Home Medications Medication Instructions Recorded Confirmed Type Levothyroxine Sodium [Synthroid] 50 mcg PO DAILY 04/01/17 05/26/17 History Potassium Chloride [K-Tab ER] 10 meq PO DAILY 04/01/17 05/27/17 History Raloxifene [Evista] 60 mg PO DAILY 04/01/17 05/26/17 History Ipratropium-Albuterol Nebulize 3 ml INHALATION RT-TID 04/26/17 05/27/17 History [Duoneb 0.5 mg-3 mg/3 ml Soln] Furosemide [Lasix] 40 mg PO DAILY 05/20/17 05/26/17 History Sulfamethox-Tmp 800-160Mg [Bactrim 1 tab PO BID 05/27/17 05/27/17 History DS 800-160 mg] Allergies Allergy/AdvReac Type Severity Reaction Status Date / Time cefuroxime Allergy Unknown Hives Verified 05/27/17 07:36 omeprazole Allergy Unknown Hives Verified 05/27/17 07:36 Surgical - Exam Vital Signs Temp Pulse Resp BP Pulse Ox 98.2 F 99 18 137/74 98 05/27/17 07:00 05/27/17 07:00 05/27/17 07:00 05/27/17 07:00 05/27/17 07:00 - General well developed, no distress - Eyes PERRL - ENT normal pinna - Neck no masses - Respiratory normal expansion - Cardiovascular Rhythm: regular - Abdomen Abdomen: soft, non tender Results - Labs 05/27/17 07:15 Diabetes panel 05/27/17 Range/Units 07:15 Potassium 4.2 (3.5-5.1) mmol/L Pituitary panel 05/27/17 Range/Units 07:15 Potassium 4.2 (3.5-5.1) mmol/L Adrenal panel 05/27/17 Range/Units 07:15 Potassium 4.2 (3.5-5.1) mmol/L Assessment and Plan Assessment: GERD. We'll perform laparoscopic Hudson fundoplication.
[2017-05-27] MEDS ORDERED: LIDOCAINE 1% INJ 10MG/ML (20 ML MDV) ONE (07:54)
[2017-05-27] MEDS ORDERED: NALOXONE 0.4 MG/ML 1 ML VIAL ONE (07:54)
[2017-05-27] MEDS ORDERED: SUCCINYLCHOLINE CHLORIDE 100 MG/5 ML SYR IV ONE (07:54)
[2017-05-27] MEDS ORDERED: PROPOFOL 10 MG/ML 20 ML VIAL IV ONE (07:54)
[2017-05-27] MEDS ORDERED: ROCURONIUM BROMIDE 10 MG/ML 10 ML VIAL IV ONE (07:54)
[2017-05-27] MEDS ORDERED: fentaNYL (PF) 50 MCG/ML 2 ML AMP ONE (07:54)
[2017-05-27] MEDS ORDERED: MIDAZOLAM 2 MG/2 ML VIAL ONE (07:54)
[2017-05-27] MEDS ORDERED: BUPIVACAINE (PF) 0.25% 30 ML VIAL SQ ONE ×2 (08:12→08:17)
[2017-05-27] MEDS ORDERED: LACTATED RINGERS 1,000 ML IV ONE (09:30)
[2017-05-27] MEDS ORDERED: HYDROmorphone 0.5 MG/0.5 ML SYRINGE IVP PRN (10:03)
[2017-05-27] MEDS ORDERED: ONDANSETRON 4 MG/2 ML VIAL IVP PRN (10:03)
--- NOTE | 2017-05-27 10:03 | P.OP ---
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 Procedure(s) Performed: Laparoscopic Hudson fundal plication with mesh Anesthesia: AMRIT Surgeon: Sorin Conde Estimated Blood Loss (ml): 5 Pathology: none sent Condition: stable Disposition: PACU Description of Procedure: The patient was placed on the operating table in the supine position. She received general anesthesia. She was then placed in dorsal lithotomy position. Her abdomen was prepped and draped in the usual sterile fashion. The skin incision sites were anesthetized with 1% local Xylocaine. The skin was incised in the left periumbilical area with an 11 scalpel. Using a 5 mm blade was trocar under direct visitation the peritoneal cavity was entered. And then insufflated. After adequate insufflation the laparoscope was placed back into the peritoneal cavity. Next a 5 mm trocar was placed in the right epigastric and then the right lateral position. Another 5 mm trochars placed in the left lateral position. Another 5 mm trocar placed in the left epigastric position. And the original left periumbilical trocar was exchanged for a 10 mm trocar. The left lateral lobe liver was retracted. The patient had a large hiatal hernia. Using the Harmonic scissors the crural defect was dissected in the Harmonic scissors were used to dissect the hiatal hernia sac. The fundus of the stomach was completely mobilized by using the Harmonic scissors to divide short gastric vessels. The stomach was reduced into the peritoneal cavity. The crura was dissected with the Harmonic scissors. And then the crural repair was performed using 2-0 Ethibond suture. The [employer] bio A mesh was then placed over top of the repair and secured with 2-0 Ethibond suture. Next a 58-Uzbek bougie dilator was placed the patient's oral pharynx and into the esophagus into the stomach by the CEMENT CAR DUMPER. The fundoplication was then performed using 2-0 Ethibond suture. A 180 fundoplication was performed. At this point the dilator was withdrawn. The stomach and esophagus were inspected there is known to any injury to the stomach or esophagus. The abdomen was irrigated there is no bleeding seen. The trochars are withdrawn. Skin was closed interrupted 3-0 Monocryl suture. Dermabond was applied. Patient tolerated procedure well and was sent to recovery in stable condition.
[2017-05-27] MEDS: HYDROmorphone 0.5 MG/0.5 ML SYRINGE IVP PRN ×2 (10:11→10:18)
[2017-05-27] MEDS ORDERED: MORPHINE SULFATE 4 MG/ML SYRINGE IVP PRN (15:14)
--- NOTE | 2017-05-27 15:18 | FL ---
EXAMINATION TYPE: FL esophagus cervic/pharynx DATE OF EXAM: 05/27/2017 HISTORY: Post Renzo fundoplication COMPARISON: NONE TECHNIQUE: Single contrast technique is utilized to evaluate the esophagus as it passes into the stom ach. FINDINGS: No free air is under the diaphragm. Small infiltrate is suspected at the left base. Contrast passes through the esophagus easily into the stomach. No significant hesitancy is evident. P ostsurgical changes are evident within the distal esophageal region. No extravasation of contrast is evident. IMPRESSION: 1. No extravasation of contrast post Renzo fundoplication.
[2017-05-27] MEDS: D5-0.45% NACL WITH KCL 20MEQ/L 1,000 ML IV SCH (15:24)
[2017-05-27] MEDS: POTASSIUM CHLORIDE ER 10 MEQ TAB.ER.PRT PO SCH (17:28)
[2017-05-27] MEDS: FUROSEMIDE 40 MG TAB PO SCH (17:28)
[2017-05-27] MEDS: IPRATROPIUM-ALBUTEROL 3 ML NEB INHALATION SCH (19:13)
[2017-05-27] MEDS ORDERED: ACETAMINOPHEN TAB 325 MG TAB PO PRN (20:47)
[2017-05-27] MEDS ORDERED: BUTALB/APAP/CAFF 50-325-40MG TAB PO PRN (20:47)
[2017-05-27] MEDS: ATENOLOL 25 MG TAB PO SCH (21:45)
[2017-05-28] MEDS: D5-0.45% NACL WITH KCL 20MEQ/L 1,000 ML IV SCH ×3 (00:46→13:11)
--- NOTE | 2017-05-28 01:03 | CONS ---
CONSULTATION SUBJECTIVE: This is a white female in for medical management consult status post status Hudson procedure for reflux esophagitis. She is complaining of a headache. History of GERD, dyslipidemia, heart failure, COPD, hypothyroidism, complaining of a headache post Hudson procedure. PAST MEDICAL HISTORY: Hiatal hernia, breast cancer, bone cancer, right hand. PAST SURGICAL HISTORY: Right mastectomy and right ankle fracture repair, bilateral cataract removal. SOCIAL HISTORY: Never smoked. No alcohol. No illicit drugs. FAMILY HISTORY: Father heart disease. Mother heart disease. Sister cancer. Three sisters with breast cancer. HOME MEDICATIONS: Synthroid 50 mcg daily, K-Tab ER 10 mEq daily. Evista 60 mg daily, DuoNeb updraft t.i.d., Lasix 40 mg daily, Bactrim Double Strength b.i.d. ALLERGIES: CEFUROXIME AND OMEPRAZOLE. PHYSICAL EXAMINATION: Vital signs show temp 98.2, pulse 99, respiratory 16 to 18, blood pressure 130s/70s, O2 98% on room air. HEENT normocephalic, atraumatic. Cardiovascular S1, S2. Lungs clear. GI soft. Hematology negative Homans. Psych: Fair mood and affect. Vascular: Normal dorsalis pedis, posterior tibial, radial pulse. Ophthalmologic: Pupils equal, round, reactive to light and accommodation. Neurologic: Alert, oriented times three. ASSESSMENT: 1. Status post Hudson. 2. Gastroesophageal reflux disease. 3. Migraine. 4. Hypothyroidism. 5. Hypertension. Continue controlled current treatments. Follow up in the 24 to 48 hours. MMODL / IJN: [id number] /
[2017-05-28] MEDS ORDERED: LEVOTHYROXINE 50 MCG TAB PO SCH (06:30)
[2017-05-28] MEDS: LACTATED RINGERS 1,000 ML IV SCH (07:18)
[2017-05-28] MEDS: IPRATROPIUM-ALBUTEROL 3 ML NEB INHALATION SCH ×2 (07:28→12:28)
[2017-05-28] MEDS ORDERED: ENOXAPARIN 40 MG/0.4 ML SYRINGE SQ SCH (09:00)
[2017-05-28] MEDS: ATENOLOL 25 MG TAB PO SCH (09:21)
[2017-05-28] MEDS: FUROSEMIDE 40 MG TAB PO SCH (09:21)
[2017-05-28] MEDS: POTASSIUM CHLORIDE ER 10 MEQ TAB.ER.PRT PO SCH (09:21)
--- NOTE | 2017-05-28 11:14 | P.PN ---
Subjective Progress Note Date: 05/28/17 82-year-old female seen and examined sitting up in a chair no new events. Patient's postop on May 27 laparoscopic Hudson fundoplication with mesh done for symptomatic esophageal reflux symptoms symptoms paraEsophageal hiatal hernia with 50% of the stomach and colon within the chest No nausea no vomiting tolerating the nisssen clear liquid diet Objective - Vital Signs Vital signs: Vital Signs Temp 97.9 F 05/28/17 08:00 Pulse 99 05/28/17 08:00 Resp 20 05/28/17 08:00 BP 147/75 05/28/17 08:00 Pulse Ox 97 05/28/17 08:00 Intake & Output 05/27/17 05/28/17 05/28/17 18:59 06:59 18:59 Intake Total 1106 Output Total 160 775 Balance 946 -775 Weight 72.575 kg Intake: IV 1106 Output: Urine 150 775 Estimated Blood Loss 10 Other: Voiding Method Toilet # Voids 1 - Exam Physical exam 82-year-old female sitting up in chair pleasant cooperative Lungs adequate air movement bilaterally no shortness of breath noted Heart S1-S2 audible regular Abdomen nontender nondistended Dermabond dressings dry to surgical site bowel tones present no nausea no vomiting urinating no difficulty Extremities no pedal edema bilaterally - Labs CBC & Chem 7: 05/27/17 07:15 Assessment and Plan Assessment: Impression Symptomatic esophageal reflux disease Paraesophageal hiatal hernia with 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 Connie Aguilar nurse practitioner acting as scribe for signing physician.
[2017-05-28 13:12] VITALS: BP 148/89; PULSE 98; RESP 19; TEMP 98.5
--- NOTE | 2017-05-28 13:20 | P.DS ---
Providers Expected date of discharge: 05/28/17 Attending physician: Sorin Conde Consults: 05/27/17 10:03 Consult Physician Routine Consulting Provider: Victor Hugo Zhong Consult Reason/Comments: Medical management Do you want consulting provider notified?: Yes Primary care physician: [facility] Hospital Course: 82-year-old female presented on an elective basis to undergo on May 27 laparoscopic Hudson fundoplication with mesh done for symptomatic esophageal reflux symptoms symptoms a paraEsophageal hiatal hernia with 50% of the stomach and colon within the chest No postop events noted Impression Symptomatic esophageal reflux disease 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 Connie Aguilar nurse practitioner acting as scribe for signing physician. Plan - Discharge Summary Discharge Rx Participant: Yes New Discharge Prescriptions: Continue Raloxifene [Evista] 60 mg PO DAILY Levothyroxine Sodium [Synthroid] 50 mcg PO DAILY Potassium Chloride [K-Tab ER] 10 meq PO DAILY Ipratropium-Albuterol Nebulize [Duoneb 0.5 mg-3 mg/3 ml Soln] 3 ml INHALATION RT-TID Furosemide [Lasix] 40 mg PO DAILY Sulfamethox-Tmp 800-160Mg [Bactrim DS 800-160 mg] 1 tab PO BID Discharge Medication List Levothyroxine Sodium [Synthroid] 50 mcg PO DAILY 04/01/17 [History] Potassium Chloride [K-Tab ER] 10 meq PO DAILY 04/01/17 [History] Raloxifene [Evista] 60 mg PO DAILY 04/01/17 [History] Ipratropium-Albuterol Nebulize [Duoneb 0.5 mg-3 mg/3 ml Soln] 3 ml INHALATION RT -TID 04/26/17 [History] Furosemide [Lasix] 40 mg PO DAILY 05/20/17 [History] Sulfamethox-Tmp 800-160Mg [Bactrim DS 800-160 mg] 1 tab PO BID 05/27/17 [History ] Follow up Appointment(s)/Referral(s): Sorin Conde MD [STAFF PHYSICIAN] - 1 Week Victor Hugo Zhong MD [Primary Care Provider] - 1 Week Activity/Diet/Wound Care/Special Instructions: full liquid diet for 2 weeks Discharge Disposition: HOME SELF-CARE
== END 2017-05-28 15:10 | disposition home or self-care (01) ==
LOC: OR 06:21 → 6PED 09:32 → OR 05-28 15:10
PROVIDERS: ATTEND Surgery
DX: K21.0 Gastro-esophageal reflux disease with esophagitis (principal); K44.9 Diaphragmatic hernia without obstruction or gangrene; G43.909 Migraine, unspecified, not intractable, without status migrainosus; I11.0 Hypertensive heart disease with heart failure; I50.9 Heart failure, unspecified; J44.9 Chronic obstructive pulmonary disease, unspecified; E78.5 Hyperlipidemia, unspecified; E03.9 Hypothyroidism, unspecified; I25.10 Atherosclerotic heart disease of native coronary artery without angina pectoris; Z90.11 Acquired absence of right breast and nipple; Z85.3 Personal history of malignant neoplasm of breast; Z85.830 Personal history of malignant neoplasm of bone; Q71.31 Congenital absence of right hand and finger; Z79.890 Hormone replacement therapy; Z79.899 Other long term (current) drug therapy; Z79.2 Long term (current) use of antibiotics; Z88.1 Allergy status to other antibiotic agents; Z88.8 Allergy status to other drugs, medicaments and biological substances
CPT/HCPCS: 94640 ×3; 84132; 74210; 43280; C1781; J2250; J2270; J1644; J2310; Q9967; J2405; J2001; J1650; J3010; J0330; J2704; J1170; 86850; 86900; 86901

== ENCOUNTER → 2017-10-01 | Outpatient (CLI) | payer MEDICARE, BC ==
--- NOTE | 2017-10-01 11:19 | XR ---
EXAMINATION TYPE: XR chest 2V DATE OF EXAM: 10/01/2017 COMPARISON: 04/20/2017 HISTORY: Persistent cough TECHNIQUE: Frontal and lateral views of the chest are obtained. FINDINGS: There is no focal air space opacity, pleural effusion, or pneumothorax seen. Minimal left basilar subsegmental atelectasis is noted. The cardiac silhouette size is within normal limits. Ther e is rightward tracheal deviation secondary to aortic ectasia. The osseous structures are intact. The re is generalized osseous demineralization and mild multilevel degenerative changes of thoracic spine with an exaggerated thoracic kyphosis. Increased retrosternal airspace suggests underlying COPD. The previously seen partial intrathoracic stomach appears surgically fixated and now a hiatal hernia rem ains. IMPRESSION: Minimal bibasilar subsegmental atelectasis. No focal consolidation to suggest pneumonia. Findings suggesting underlying COPD.
== END | disposition home or self-care (01) ==
LOC: RADXRMAIN 10:42
PROVIDERS: ATTEND Family Medicine
DX: J98.11 Atelectasis (principal)
CPT/HCPCS: 71046

== ENCOUNTER → 2017-11-26 | Outpatient (CLI) | payer MEDICARE, BC | END | disposition home or self-care (01) | LOC: CPPFTMAIN 09:58 | PROVIDERS: ATTEND Family Medicine | DX: J44.9 Chronic obstructive pulmonary disease, unspecified (principal) | CPT/HCPCS: 94060; 94726; 94729 ==

== ENCOUNTER 2019-11-02 10:43 | Inpatient (IN) | payer BC, MEDICARE ==
[2019-11-02] MEDS ORDERED: ALBUTEROL NEBULIZED 2.5 MG/3 ML INHALATION PRN (12:42)
[2019-11-02] MEDS ORDERED: CLINDAMYCIN 150 MG/ML 2 ML VIAL IM SCH (12:45)
[2019-11-02] MEDS ORDERED: SODIUM CHLORIDE 0.9% 1,000 ML IV SCH (13:00)
[2019-11-02 13:43] LABS: Basophils # (A) 0.1 k/uL (0-0.2); Basophils % (A) 1 %; Eosinophils # (A) 0.2 k/uL (0-0.7); Eosinophils % (A) 2 %; HCT 37.7 % (34.0-46.0); HGB 11.8 gm/dL (11.4-16.0); Lymphocytes # (A) 1.9 k/uL (1.0-4.8); Lymphocytes % (A) 21 %; MCH 30.8 pg (25.0-35.0); MCHC 31.4 g/dL (31.0-37.0); MCV 98.2 fL (80.0-100.0); Mean Platelet Volume 7.7; Monocytes # (A) 0.5 k/uL (0-1.0); Monocytes % (A) 6 %; Neutrophils # (A) 5.9 k/uL (1.3-7.7); Neutrophils % (A) 68 %; Platelet Count 283 k/uL (150-450); RBC 3.84 m/uL (3.80-5.40); RDW 13.6 % (11.5-15.5); WBC 8.7 k/uL (3.8-10.6)
[2019-11-02 13:56] LABS: ALT 16 U/L (4-34); AST 25 U/L (14-36); African American GFR (CKD) 77 (>60 ml/min/1.73 sqM); Albumin 3.3 g/dL (3.5-5.0); Alkaline Phosphatase 45 U/L (38-126); Anion Gap 7 mmol/L; Blood Urea Nitrogen 24 mg/dL (7-17); C Reactive Protein <5.0 mg/L (<10.0); Calcium 8.7 mg/dL (8.4-10.2); Carbon Dioxide 26 mmol/L (22-30); Chloride 105 mmol/L (98-107); Glucose 169 mg/dL (74-99); Non-African American GFR(CKD) 66 (>60 ml/min/1.73 sqM); Potassium 3.8 mmol/L (3.5-5.1); Sodium 138 mmol/L (137-145); Total Bilirubin 0.2 mg/dL (0.2-1.3); Total Protein 6.2 g/dL (6.3-8.2)
[2019-11-02] MEDS: CLINDAMYCIN 300 MG in DEXTROSE 5% IN WATER 50 ML IVPB SCH ×4 (14:13→17:54)
--- NOTE | 2019-11-02 14:56 | XR ---
EXAMINATION TYPE: XR thoracic spine complete DATE OF EXAM: 11/02/2019 CLINICAL HISTORY: Pain and swelling, cellulitis. TECHNIQUE: Frontal, lateral, and swimmer's view of thoracic spine are obtained. COMPARISON: Chest x-ray October 01, 2017. FINDINGS: Osseous structures are demineralized. Dextroconvex scoliosis centered mid to lower thoracic spine with more prominent reactive levoconvex scoliosis in the mid lumbar spine remains present. M ild compression type fracture deformity at roughly T11 level near peak of thoracic curvature presumed chronic. Mild to moderate multilevel anterior and lateral spurring in the thoracic spine. No suspici ous bony destruction. Atherosclerotic change of overlying aorta. Probable tiny left pleural effusion with left basilar atelectasis. IMPRESSION: As above.
[2019-11-02 15:08] LABS: Erythrocyte Sedimentation Rate 13 mm/hr (0-20)
[2019-11-02] MEDS: IPRATROPIUM-ALBUTEROL 3 ML NEB INHALATION SCH ×2 (16:50→21:55)
[2019-11-02] MEDS: MEMANTINE 5 MG TAB PO SCH (21:40)
--- NOTE | 2019-11-02 23:21 | P.CONS ---
History of Present Illness - Reason for Consult Consult date: 11/02/19 Mid back wound and a question of cellulitis Requesting physician: Victor Hugo Zhong - Chief Complaint Midback wound x weeks - History of Present Illness Patient is 84-year-old female who did have scoliosis and spent most of the time in her chair has developed an ulcer on the midback area at the site of spinal curvature, that apparently has not been healing for the patient was evaluated by the primary care physician subsequently has been in the hospital with concern for a nonhealing wound cellulitis and question of osteomyelitis, patient currently denies having any fever or any chills, the patient denies having any pain to the mid thoracic spine wound area patient denies having any drainage from that site is minimal surrounding swelling but no redness or foul- smelling drainage patient to have Ceftin as an ALLERGY she was started on clindamycin, workup so far including patient is afebrile she did have a normal white count and normal CRP and a normal sed rate Review of Systems Positive point has been mentioned in the HPI rest of the systems are negative Past Medical History Past Medical History: Heart Failure, COPD, GERD/Reflux, Thyroid Disorder Additional Past Medical History / Comment(s): HIATAL HERNIA, breast ca, bone cancer, 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 Past Anesthesia/Blood Transfusion Reactions: No Reported Reaction Past Psychological History: No Psychological Hx Reported Smoking Status: Never smoker Past Alcohol Use History: None Reported Past Drug Use History: None Reported - Past Family History Father Additional Family Medical History / Comment(s): heart disease. Mother Additional Family Medical History / Comment(s): heart disease. Sister(s) Family Medical History: Cancer Additional Family Medical History / Comment(s): 3 SISTERS WITH BREAST CA Medications and Allergies Home Medications Medication Instructions Recorded Confirmed Type Levothyroxine Sodium [Synthroid] 50 mcg PO DAILY 04/01/17 11/02/19 History Potassium Chloride [K-Tab ER] 10 meq PO DAILY 04/01/17 11/02/19 History Raloxifene [Evista] 60 mg PO DAILY 04/01/17 11/02/19 History Ipratropium-Albuterol Nebulize 3 ml INHALATION RT-TID 04/26/17 11/02/19 History [Duoneb 0.5 mg-3 mg/3 ml Soln] Furosemide [Lasix] 40 mg PO DAILY 05/20/17 11/02/19 History Albuterol Inhaler [Ventolin Hfa 2 puff INHALATION RT-Q4H PRN 11/02/19 11/02/19 History Inhaler] Memantine [Namenda] 5 mg PO BID 11/02/19 11/02/19 History Multivitamins, Thera [Multivitamin 1 tab PO DAILY 11/02/19 11/02/19 History (formulary)] Omeprazole 40 mg PO DAILY 11/02/19 11/02/19 History atenoloL [Atenolol] 25 mg PO DAILY 11/02/19 11/02/19 History Allergies Allergy/AdvReac Type Severity Reaction Status Date / Time cefuroxime Allergy Intermediate Hives Verified 11/02/19 11:20 Physical Exam Vitals: Vital Signs Temp Pulse Pulse Resp BP Pulse Ox 11/02/19 19:15 98.4 F 85 13 128/56 98 11/02/19 17:01 84 11/02/19 16:51 84 11/02/19 16:00 85 16 11/02/19 15:00 98.1 F 85 16 110/59 94 L 11/02/19 11:30 98.9 F 80 18 115/62 94 L Intake and Output 11/02/19 11/02/19 11/02/19 06:59 14:59 22:59 Other: Voiding Method Toilet # Voids 1 Weight 52.163 kg GENERAL DESCRIPTION: An elderly female up in the chair, no distress. No tachypnea or accessory muscle of respiration use. HEENT: Shows Pallor , no scleral icterus. Oral mucous membrane is dry. No pharyngeal erythema or thrush NECK: Trachea central, no thyromegaly. LUNGS: Unlabored breathing. Clear to auscultation anteriorly. No wheeze or crackle. HEART: S1, S2, regular rate and rhythm. No loud murmur ABDOMEN: Soft, no tenderness , guarding or rigidity, no organomegaly EXTREMITIES: No edema of feet. Patient did have a mid back area ulcer with no slough tissue no surrounding swelling redness or drainage SKIN: No rash, no masses palpable. NEUROLOGICAL: The patient is awake, alert, oriented x3, mood and affect normal. Results CBC & Chem 7: 11/02/19 13:29 11/02/19 13:29 Labs: Abnormal Lab Results - Last 24 Hours (Table) 11/02/19 Range/Units 13:29 BUN 24 H (7-17) mg/dL Glucose 169 H (74-99) mg/dL Total Protein 6.2 L (6.3-8.2) g/dL Albumin 3.3 L (3.5-5.0) g/dL Assessment and Plan Assessment: 1- patient with a mid thoracic spine/ back area ulceration likely the pressure ulcer stage II with evidence of any soft tissue or surrounding cellulitis clinically doubt underlying osteomyelitis 2- patient with cephalosporin ALLERGY (1) Stage II pressure ulcer of back Current Visit: Yes Status: Acute Code(s): L89.102 - PRESSURE ULCER OF UNSPECIFIED PART OF BACK, STAGE 2 SNOMED Code(s): 282764858 Plan: 1- recommend local wound care with dry Aquacel silver dressing followed by wound dressing and to keep the area off the pressure 2- no need for systemic antibiotic therapy We will follow on clinical condition and cultures to further adjust medication if needed Thank you for this consultation will follow this patient with you Family the bedside their questions concerned were answered Time with Patient: Greater than 30
[2019-11-03] MEDS: CLINDAMYCIN 300 MG in DEXTROSE 5% IN WATER 50 ML IVPB SCH ×6 (00:03→12:02)
[2019-11-03] MEDS ORDERED: LEVOTHYROXINE 50 MCG TAB PO SCH (06:30)
[2019-11-03] MEDS: IPRATROPIUM-ALBUTEROL 3 ML NEB INHALATION SCH ×2 (07:15→12:13)
[2019-11-03] MEDS ORDERED: PANTOPRAZOLE 40 MG TABLET PO SCH (07:30)
[2019-11-03 07:38] VITALS: RESP 16
[2019-11-03] MEDS ORDERED: MULTIVITAMINS, THERA 1 EACH TAB PO SCH (09:00)
[2019-11-03] MEDS ORDERED: POTASSIUM CHLORIDE ER 10 MEQ TAB.ER.PRT PO SCH (09:00)
[2019-11-03] MEDS ORDERED: FUROSEMIDE 40 MG TAB PO SCH (09:00)
[2019-11-03] MEDS ORDERED: atenoloL 25 MG TAB PO SCH (09:00)
[2019-11-03] MEDS: MEMANTINE 5 MG TAB PO SCH (09:28)
--- NOTE | 2019-11-03 12:19 | NM ---
EXAMINATION TYPE: NM bone 3 phase DATE OF EXAM: 11/03/2019 COMPARISON: 02/09/2015 3 phase bone scan. HISTORY: Thoracic spine osteomyelitis Triple phase bone scintigraphy was performed following the injection of 23.4 mCi Tc 99m MDP. Immedia te images and 3 hours post injection images acquired. FINDINGS: Blood flow: No suspicious focal uptake is identified during blood flow over the thoracic and upper ab dominal region. Blood pool: No suspicious focal uptake is identified. Static images: No suspicious focal uptake in the axial or appendicular skeleton is present. There is a large amount of radiotracer during the exam within the lower pelvis. Some contamination is likely p resent distal to the urinary bladder. Radiotracer within urinary bladder can obscure underlying abnor mality. Scoliosis is noted. Previous abnormal uptake within the right ankle has significantly diminished ove r the interval. IMPRESSION: 1. No suspicious abnormal uptake to suggest acute osteomyelitis within the thoracic spine. 2. Suspicious area of metastatic disease is not identified.
[2019-11-03 15:16] VITALS: BP 119/79; PULSE 83; TEMP 98.4
--- NOTE | 2019-11-03 17:10 | PN ---
PROGRESS NOTE DATE OF SERVICE: 11/03/2019 REASON FOR FOLLOWUP: A mid back pressure ulcer stage II. INTERVAL HISTORY: Patient is currently afebrile. The patient is breathing comfortably. Patient denies having any chest pain or shortness of breath, no cough. Denies pain to the mid back area, no nausea, no vomiting, no abdominal pain, no diarrhea. PHYSICAL EXAMINATION: Blood pressure 123/80 with a pulse of 85, temperature 98.6, he is 100% on room air. General description is an elderly female, up in the room in no distress. RESPIRATORY SYSTEM: Unlabored breathing, clear to auscultation anteriorly. HEART: S1, S2. Regular rate and rhythm. ABDOMEN: Soft, no tenderness. Upper back currently with small wound, no cellulitis. LABS: White count normal at 8.7, CRP normal. Bone scan was negative. DIAGNOSTIC IMPRESSION AND PLAN: Patient with mid back pressure ulcer, stage II with no evidence of any cellulitis. Recommend local wound care with dry Aquacel Silver dressing and foam dressing to keep the area off the pressure. Continue supportive care. MMODL / IJN: [id number] /
--- NOTE | 2019-11-03 18:25 | HP ---
HISTORY AND PHYSICAL This patient is an 84-year-old white female who came in with severe erythema and an open wound to her thoracic spine, stage II. Redness extended over 3-4 vertebrae in her mid back over the whole width of the vertebrae, about 1 x 3 inches to 4 inches, admitted for cellulitis of the thoracic spine. Rule out osteomyelitis. Bone scan is negative for osteomyelitis. She was started on IV antibiotics on admission. She was seen by Infectious Disease. Will possibly order some oral medications from home and some Aquacel Silver to go home with, as bone scan is negative for any osteomyelitis. She has a history of hypothyroidism, diastolic CHF, osteoarthritis, COPD, GERD, hypertension. MEDICATIONS: 1. Atenolol 25 daily. 2. Omeprazole 40 daily. 3. Multivitamin daily. 4. Namenda 5 mg b.i.d. 5. Lasix 40 mg daily. 6. Ventolin HFA 2 puffs q.4 hours p.r.n. 7. DuoNeb updrafts q.i.d. p.r.n. 8. Evista 60 mg weekly. 9. Potassium chloride 10 mEq daily. 10.Levothyroxine 50 daily. FAMILY HISTORY: Father with heart disease. Mother with heart disease. Three sisters with breast cancer. PHYSICAL EXAMINATION: Temperature 98.4, pulse 85, respiratory rate 16 to 18. Blood pressure is 110 to 120s over 50s to 60s. Oxygen 94% to 98% on room air. CARDIOVASCULAR: S1, S2. LUNGS: Clear. GI: Soft. MUSCULOSKELETAL: Lordotic kyphotic spine with erythema in the mid back area with the vertebrae about 4 inches in length. ASSESSMENT: 1. Cellulitis of the thoracic vertebrae. Rule out osteomyelitis. 2. Protein-calorie malnutrition. 3. Stage II ulcer of the thoracic spine. 4. CEPHALOSPORIN ALLERGY. Dry Aquacel Silver dressing and possibly some oral antibiotics. Follow up as an outpatient osteomyelitis is cleared and cleared by Infectious Disease physician. MMODL / IJN: [id number] /
== END 2019-11-03 18:07 | disposition home or self-care (01) | DRG 593 ==
LOC: 4SSUR 11:01
PROVIDERS: ADMIT Family Medicine; ATTEND Family Medicine
DX: L89.102 Pressure ulcer of unspecified part of back, stage 2 (principal); I50.32 Chronic diastolic (congestive) heart failure; E46 Unspecified protein-calorie malnutrition; I11.0 Hypertensive heart disease with heart failure; E03.9 Hypothyroidism, unspecified; J44.9 Chronic obstructive pulmonary disease, unspecified; M19.90 Unspecified osteoarthritis, unspecified site; K21.9 Gastro-esophageal reflux disease without esophagitis; M41.9 Scoliosis, unspecified; Z79.899 Other long term (current) drug therapy; Z80.3 Family history of malignant neoplasm of breast; Z82.49 Family history of ischemic heart disease and other diseases of the circulatory system; Z85.3 Personal history of malignant neoplasm of breast; Z88.1 Allergy status to other antibiotic agents; Z90.11 Acquired absence of right breast and nipple; Z98.890 Other specified postprocedural states; Z98.42 Cataract extraction status, left eye; Z98.41 Cataract extraction status, right eye; Z79.890 Hormone replacement therapy
CPT/HCPCS: 72072; 78315; 80053; 85025; 85652; 86140; 94640

== ENCOUNTER 2020-07-05 11:18 | Inpatient (IN) | payer MEDICARE ==
--- NOTE | 2020-07-05 11:41 | ED ---
Fall HPI - General Chief Complaint: Fall Stated Complaint: Fall Time Seen by Provider: 07/05/20 11:33 Source: EMS, RN notes reviewed Mode of arrival: EMS - History of Present Illness Initial Comments: Patient is an 85-year-old female that presents to the emergency department via EMS after being found facedown in the bathroom by her family. Patient is severely demented and cannot give an accurate history. She was in no apparent distress or pain while laying in bed during the exam interview with her c-collar on. EMS notes that family noted she had vomited and was lying face down. Family noted that they start 6 AM this morning she was okay. Patient denied any pain, unable to obtain rest of the review of systems due to patient's mental status. - Related Data Home Medications Medication Instructions Recorded Confirmed Levothyroxine Sodium [Synthroid] 50 mcg PO DAILY 04/01/17 07/05/20 Raloxifene [Evista] 60 mg PO DAILY 04/01/17 07/05/20 Albuterol Inhaler [Ventolin Hfa 2 puff INHALATION RT-Q4H PRN 11/02/19 07/05/20 Inhaler] Memantine [Namenda] 5 mg PO BID 11/02/19 07/05/20 Multivitamins, Thera [Multivitamin 1 tab PO DAILY 11/02/19 07/05/20 (formulary)] Omeprazole 40 mg PO DAILY 11/02/19 07/05/20 atenoloL [Atenolol] 25 mg PO DAILY 11/02/19 07/05/20 ALPRAZolam [Xanax] 0.25 mg PO HS 07/05/20 07/05/20 Nitrofurantoin Monohyd/M-Cryst 100 mg PO Q12HR 07/05/20 07/05/20 [Macrobid] Allergies Allergy/AdvReac Type Severity Reaction Status Date / Time cefuroxime Allergy Intermediate Hives Verified 07/05/20 13:40 Review of Systems ROS Statement: Those systems with pertinent positive or pertinent negative responses have been documented in the HPI. ROS Other: All systems not noted in ROS Statement are negative. 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 Past Anesthesia/Blood Transfusion Reactions: No Reported Reaction Past Psychological History: No Psychological Hx Reported Smoking Status: Never smoker Past Alcohol Use History: None Reported Past Drug Use History: None Reported - Past Family History Father Additional Family Medical History / Comment(s): heart disease. Mother Additional Family Medical History / Comment(s): heart disease. Sister(s) Family Medical History: Cancer Additional Family Medical History / Comment(s): 3 SISTERS WITH BREAST CA General Exam Limitations: altered mental status General appearance: alert, in no apparent distress Head exam: Present: atraumatic, normocephalic, normal inspection Eye exam: Present: normal appearance, PERRL, EOMI. Absent: scleral icterus, conjunctival injection, periorbital swelling Neck exam: Present: normal inspection, other (C-collar in place). Absent: tend erness, meningismus, lymphadenopathy Respiratory exam: Present: normal lung sounds bilaterally. Absent: respiratory distress, wheezes, rales, rhonchi, stridor Cardiovascular Exam: Present: regular rate, normal rhythm, normal heart sounds. Absent: systolic murmur, diastolic murmur, rubs, gallop, clicks GI/Abdominal exam: Present: soft, normal bowel sounds. Absent: distended, tenderness, guarding, rebound, rigid Extremities exam: Present: normal inspection (Acquired loss of right hand.), full ROM, normal capillary refill. Absent: tenderness, pedal edema, joint swelling, calf tenderness Neurological exam: Present: alert, CN II-XII intact. Absent: oriented X3 (Alert to name/birthday, not place or time.) Psychiatric exam: Present: normal affect, normal mood Skin exam: Present: warm, dry, intact, normal color. Absent: rash Course Vital Signs 07/05/20 11:20 Temperature 98.0 F Pulse Rate 86 Respiratory 18 Rate Blood Pressure 130/84 O2 Sat by Pulse 96 Oximetry Medical Decision Making - Medical Decision Making 85-year-old female that was found face down in the bathroom. Labs, CT of the brain and C-spine, right hip x-ray ordered. Labs: White count 16.1, creatinine kinase 210, rest unremarkable. Case discussed with Dr. Alexis, patient will be admitted for orthotic consult. Dr. Washington consulted and will accept the admit. - Lab Data Result diagrams: 07/05/20 12:09 07/05/20 12:09 Lab Results 07/05/20 07/05/20 07/05/20 Range/Units 12:09 12:09 12:09 WBC 16.1 H (3.8-10.6) k/uL RBC 4.45 (3.80-5.40) m/uL Hgb 14.2 (11.4-16.0) gm/dL Hct 42.3 (34.0-46.0) % MCV 94.8 (80.0-100.0) fL MCH 31.9 (25.0-35.0) pg MCHC 33.6 (31.0-37.0) g/dL RDW 13.6 (11.5-15.5) % Plt Count 262 (150-450) k/uL MPV 7.1 Neutrophils % 90 % Lymphocytes % 5 % Monocytes % 3 % Eosinophils % 1 % Basophils % 0 % Neutrophils # 14.4 H (1.3-7.7) k/uL Lymphocytes # 0.8 L (1.0-4.8) k/uL Monocytes # 0.5 (0-1.0) k/uL Eosinophils # 0.2 (0-0.7) k/uL Basophils # 0.1 (0-0.2) k/uL PT 9.9 (9.0-12.0) sec INR 0.9 (<1.2) APTT 22.1 (22.0-30.0) sec Sodium 137 (137-145) mmol/L Potassium 4.1 (3.5-5.1) mmol/L Chloride 104 (98-107) mmol/L Carbon Dioxide 25 (22-30) mmol/L Anion Gap 8 mmol/L BUN 17 (7-17) mg/dL Creatinine 0.57 (0.52-1.04) mg/dL Est GFR (CKD-EPI)AfAm >90 (>60 ml/min/1.73 sqM) Est GFR (CKD-EPI)NonAf 84 (>60 ml/min/1.73 sqM) Glucose 134 H (74-99) mg/dL Calcium 9.0 (8.4-10.2) mg/dL Total Bilirubin 0.9 (0.2-1.3) mg/dL AST 34 (14-36) U/L ALT 23 (4-34) U/L Alkaline Phosphatase 60 (38-126) U/L Creatine Kinase 210 H (30-135) U/L Total Protein 7.1 (6.3-8.2) g/dL Albumin 3.9 (3.5-5.0) g/dL - Radiology Data Radiology results: report reviewed, image reviewed CT of the brain and C-spine: Age-related atrophic and chronic small vessel ischemic change without acute intracranial process seen at this time. Evidence for fracture or subluxation of cervical spine. Right hip x-ray: Fracture right subcapital femur, there are some elevation of the femoral neck inhalation a small head. For mole had articulates with the acetabulum. No additional fractures are evident. Chest x-ray: No acute cardiopulmonary process. Disposition Clinical Impression: Subcapital fracture of right femur Disposition: ADMITTED IP TO THIS HOSP Condition: Stable Is patient prescribed a controlled substance at d/c from ED?: No Referrals: Victor Hugo Zhong MD [Primary Care Provider] - 1-2 days Time of Disposition: 14:09
--- NOTE | 2020-07-05 12:20 | CT ---
EXAMINATION TYPE: CT brain vin david DATE OF EXAM: 07/05/2020 COMPARISON: None HISTORY: confused, fall, pain CT DLP: 1256.[address] of the brain was performed. The ventricles, basal cisterns and sulci overlying the cerebral convexities demonstrate moderate enla rgement. There is no evidence for intracranial hemorrhage or sulcal effacement. There is decreased attenuatio n about the periventricular white matter and deep white matter of both cerebral hemispheres, compatib le with chronic small vessel ischemia. No mass effects are seen. If symptoms persist consider MRI. Osseous calvarium is intact. IMPRESSION: 1. Age related atrophic and chronic small vessel ischemic change without acute intracranial process seen at this time. CT Cervical Spine: Unenhanced CT of the cervical spine was performed with bone and soft tissue window settings submitted . Coronal and sagittal reconstruction is obtained. There is normal alignment and prevertebral soft tissues. No evidence for acute cervical fracture . Scattered degenerative disc disease and spondylosis. Biapical scarring. IMPRESSION: 1. No evidence for acute fracture or subluxation of the cervical spine.
[2020-07-05 12:21] LABS: Basophils # (A) 0.1 k/uL (0-0.2); Basophils % (A) 0 %; Eosinophils # (A) 0.2 k/uL (0-0.7); Eosinophils % (A) 1 %; HCT 42.3 % (34.0-46.0); HGB 14.2 gm/dL (11.4-16.0); Lymphocytes # (A) 0.8 k/uL (1.0-4.8); Lymphocytes % (A) 5 %; MCH 31.9 pg (25.0-35.0); MCHC 33.6 g/dL (31.0-37.0); MCV 94.8 fL (80.0-100.0); Mean Platelet Volume 7.1; Monocytes # (A) 0.5 k/uL (0-1.0); Monocytes % (A) 3 %; Neutrophils # (A) 14.4 k/uL (1.3-7.7); Neutrophils % (A) 90 %; Platelet Count 262 k/uL (150-450); RBC 4.45 m/uL (3.80-5.40); RDW 13.6 % (11.5-15.5); WBC 16.1 k/uL (3.8-10.6)
[2020-07-05 12:32] LABS: ALT 23 U/L (4-34); AST 34 U/L (14-36); African American GFR (CKD) >90 (>60 ml/min/1.73 sqM); Albumin 3.9 g/dL (3.5-5.0); Alkaline Phosphatase 60 U/L (38-126); Anion Gap 8 mmol/L; Blood Urea Nitrogen 17 mg/dL (7-17); Carbon Dioxide 25 mmol/L (22-30); Chloride 104 mmol/L (98-107); Creatine Kinase 210 U/L (30-135); Glucose 134 mg/dL (74-99); Non-African American GFR(CKD) 84 (>60 ml/min/1.73 sqM); Potassium 4.1 mmol/L (3.5-5.1); Sodium 137 mmol/L (137-145); Total Bilirubin 0.9 mg/dL (0.2-1.3); Total Protein 7.1 g/dL (6.3-8.2)
[2020-07-05 12:38] LABS: INR 0.9 (<1.2); Partial Thromboplastin Time 22.1 sec (22.0-30.0); Prothrombin Time 9.9 sec (9.0-12.0)
[2020-07-05] MEDS ORDERED: NALOXONE 0.4 MG/ML 1 ML VIAL IV PRN (13:48)
[2020-07-05] MEDS ORDERED: MORPHINE SULFATE 4 MG/ML SYRINGE IV PRN (13:54)
[2020-07-05] MEDS ORDERED: LEVOFLOXACIN 750MG-D5W PMX 750 MG in DEXTROSE/WATER 1 150ML.BAG IVPB STA (13:55)
--- NOTE | 2020-07-05 13:57 | XR ---
EXAMINATION TYPE: XR Hip Complete RT DATE OF EXAM: 07/05/2020 COMPARISON: None HISTORY: Pain TECHNIQUE: 2 view right hip FINDINGS: There is a subcapital fracture at the right hip. There are some elevation of the femoral ne ck in relation to the femoral head. Femoral head articulates with the acetabulum. No additional fract ures are evident. IMPRESSION: 1. Fracture left subcapital femur
--- NOTE | 2020-07-05 14:14 | XR ---
EXAMINATION TYPE: XR chest 1V DATE OF EXAM: 07/05/2020 COMPARISON: 10/01/2017 INDICATION: Fall, pain TECHNIQUE: Single frontal view of the chest is obtained. FINDINGS: The heart size is enlarged. The pulmonary vasculature is normal. No suspicious consolidations are evident. No pneumothorax is evident IMPRESSION: 1. No acute pulmonary process. Follow-up can be performed as clinically indicated
[2020-07-05] MEDS: SODIUM CHLORIDE 0.9% 1,000 ML IV SCH (14:45)
[2020-07-05] MEDS: MEMANTINE 5 MG TAB PO SCH (20:53)
[2020-07-05] MEDS: ALPRAZolam 0.25 MG TAB PO SCH (20:54)
[2020-07-05] MEDS: IPRATROPIUM-ALBUTEROL 3 ML NEB INHALATION SCH (21:08)
--- NOTE | 2020-07-05 22:59 | HP ---
HISTORY AND PHYSICAL 85-year-old white female admitted to emergency room via EMS after being found in the bathroom for about 4 hours by her family. She has some dementia history. She was recently being treated for urinary tract infection. She was found to have a subcapital fracture in her right hip and possibly UTI. Slightly elevated CPK for rhabdomyolysis. Unable to move her right leg. We are waiting for Orthopedics to see her for possible surgery. Home medicines: Synthroid 50 daily, Evista 60 mg daily, albuterol inhaler 2 puffs q.4 hours p.r.n., Namenda 5 mg b.i.d., multivitamin daily, omeprazole 40 daily, atenolol 25 daily, Xanax 0.25 q.h.s., Macrobid 100 b.i.d. ALLERGIES: CEFUROXIME. PAST MEDICAL HISTORY: As mentioned above, otherwise is negative 14 point review of systems. 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 PAST SURGICAL HISTORY: Right mastectomy, right ankle fracture, bilateral cataract removal. FAMILY HISTORY: Father with heart disease. PHYSICAL EXAMINATION: Temperature 98, pulse 80 to 86, respiratory rate 16 to 18, blood pressure 130/84, O2 96. CARDIOVASCULAR S1-S2. LUNGS: Decreased breath sounds x4. GI soft. MUSCULOSKELETAL: She has some lateral deviation of her right leg and unable to bend her hip or knee. NEUROLOGIC: Cranial nerves intact. PSYCH: Fair mood and affect. SKIN: Warm, dry. OPHTHALMOLOGIC: Pupils equal, round, reactive to light and accommodation. NEUROLOGIC: Alert and oriented x3. CT scan of the brain, C-spine negative. X-ray subcapital fracture. White count 16.1, hemoglobin 14.2. Creatinine kinase 210. ASSESSMENT: 1. Subcapital fracture of the right femur. 2. History of hypertension. 3. Hypothyroidism. 4. Dementia. Continue home medicines for pain control. Possible surgery, await for orthopedic surgery. MMODL / IJN: [id number] /
[2020-07-06] MEDS: LEVOTHYROXINE 50 MCG TAB PO SCH ×2 (06:02→09:29)
[2020-07-06] MEDS: IPRATROPIUM-ALBUTEROL 3 ML NEB INHALATION SCH ×4 (08:31→20:48)
--- NOTE | 2020-07-06 09:23 | P.HPOR ---
History of Present Illness H&P Date: 07/06/20 Chief Complaint: Right Hip Fracture Patient is a pleasant 85-year-old female seen at bedside this am. She was admitted through the emergency department yesterday 07/05/20 after being found facedown in the bathroom by her family. Patient is severely demented and cannot give an accurate history. She is in no apparent distress or pain while laying in bed during the exam interview this morning. She denies any complaints or pain this morning. Workup in the ED showed she has a right femoral neck fracture. Unable to obtain rest of the review of systems due to patient's mental status. 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 Past Anesthesia/Blood Transfusion Reactions: No Reported Reaction Past Psychological History: No Psychological Hx Reported Smoking Status: Never smoker Past Alcohol Use History: None Reported Past Drug Use History: None Reported - Past Family History Father Additional Family Medical History / Comment(s): heart disease. Mother Additional Family Medical History / Comment(s): heart disease. Sister(s) Family Medical History: Cancer Additional Family Medical History / Comment(s): 3 SISTERS WITH BREAST CA Medications and Allergies Home Medications Medication Instructions Recorded Confirmed Type Levothyroxine Sodium [Synthroid] 50 mcg PO DAILY 04/01/17 07/05/20 History Raloxifene [Evista] 60 mg PO DAILY 04/01/17 07/05/20 History Albuterol Inhaler [Ventolin Hfa 2 puff INHALATION RT-Q4H PRN 11/02/19 07/05/20 History Inhaler] Memantine [Namenda] 5 mg PO BID 11/02/19 07/05/20 History Multivitamins, Thera [Multivitamin 1 tab PO DAILY 11/02/19 07/05/20 History (formulary)] Omeprazole 40 mg PO DAILY 11/02/19 07/05/20 History atenoloL [Atenolol] 25 mg PO DAILY 11/02/19 07/05/20 History ALPRAZolam [Xanax] 0.25 mg PO HS 07/05/20 07/05/20 History Nitrofurantoin Monohyd/M-Cryst 100 mg PO Q12HR 07/05/20 07/05/20 History [Macrobid] Allergies Allergy/AdvReac Type Severity Reaction Status Date / Time cefuroxime Allergy Intermediate Hives Verified 07/05/20 13:40 Physical Examination GEN: NAD, MAA, Alert but not oriented Lower extremity: Inspection of the right lower extremity shows a shortened externally rotated leg. There are no wounds or erythema. ROM of the hip not tested due to fracture. No effusion or tenderness at the knee. Calf is SNT. NVI grossly intact throughout lower extremity. 2+ DP pulse and less than 2 sec cap refill present. Results - Labs Labs: Abnormal Lab Results - Last 24 Hours (Table) 07/05/20 07/05/20 Range/Units 12:09 12:09 WBC 16.1 H (3.8-10.6) k/uL Neutrophils # 14.4 H (1.3-7.7) k/uL Lymphocytes # 0.8 L (1.0-4.8) k/uL Glucose 134 H (74-99) mg/dL Creatine Kinase 210 H (30-135) U/L Microbiology - Last 24 Hours (Table) 07/05/20 13:43 Urine Culture - Preliminary Urine,Catheterized H & H 07/05/20 Range/Units 12:09 Hgb 14.2 (11.4-16.0) gm/dL Hct 42.3 (34.0-46.0) % Coagulation 07/05/20 Range/Units 12:09 INR 0.9 (<1.2) Result Diagrams: 07/05/20 12:09 07/05/20 12:09 - Diagnostic results Hip x-ray: report reviewed, image reviewed (Right femoral neck fracture) Assessment and Plan (1) Subcapital fracture of right femur Narrative/Plan: Plan is to proceed with surgical intervention including right hip hemiarthroplasty per Dr. Hoffman.. She has been NPO and case is boarded. Preop clearance requested. Routine post op orthopedic protocol afterwards. She will need placement as well. Current Visit: Yes Status: Acute Priority: Medium Code(s): S72.011A - UNSP INTRACAPSULAR FRACTURE OF RIGHT FEMUR, INIT FOR CLOS FX SNOMED Code(s): 242760683 Time with Patient: Less than 30
[2020-07-06] MEDS: PANTOPRAZOLE 40 MG TABLET PO SCH (09:29)
[2020-07-06] MEDS: MULTIVITAMINS, THERA 1 EACH TAB PO SCH (09:29)
[2020-07-06] MEDS: atenoloL 25 MG TAB PO SCH (09:31)
[2020-07-06] MEDS: RALOXIFENE 60 MG TAB PO SCH (09:32)
[2020-07-06] MEDS: MEMANTINE 5 MG TAB PO SCH ×2 (09:32→21:13)
[2020-07-06] MEDS ORDERED: IV FLUID CONTINUATION 300 ML IV ONE (13:34)
[2020-07-06] MEDS ORDERED: ONDANSETRON 4 MG/2 ML VIAL ONE (13:47)
[2020-07-06] MEDS ORDERED: DEXAMETHASONE SOD PHOSPHATE 4 MG/ML 1 ML VIAL IV ONE (13:48)
[2020-07-06] MEDS ORDERED: ONDANSETRON 4 MG/2 ML VIAL IVP ONE (13:49)
[2020-07-06] MEDS ORDERED: MIDAZOLAM 2 MG/2 ML VIAL ONE (14:03)
[2020-07-06] MEDS ORDERED: KETAMINE 10 MG/ML 20 ML VIAL ONE (14:03)
[2020-07-06] MEDS ORDERED: PHENYLEPHRINE-0.9% NACL SYG 1,000 MCG/10 ML SYRINGE ONE (14:03)
[2020-07-06] MEDS ORDERED: ceFAZolin 1,000 MG VIAL IVPB ONE (14:20)
[2020-07-06] MEDS ORDERED: LACTATED RINGERS 1,000 ML IV ONE (14:36)
[2020-07-06] MEDS ORDERED: ceFAZolin 1,000 MG in SODIUM CHLORIDE 0.9% 1,000 ML IRRIGATION ONE (14:37)
[2020-07-06] MEDS ORDERED: HYDROcodone/APAP 5-325MG 1 EACH TAB PO PRN ×2 (15:26→15:28)
[2020-07-06] MEDS ORDERED: HYDROmorphone 0.5 MG/0.5 ML SYRINGE IVP PRN (15:26)
[2020-07-06] MEDS ORDERED: BENZOCAINE/MENTHOL LOZENG 1 EACH LOZENGE MUCOUS MEM PRN (15:26)
[2020-07-06] MEDS ORDERED: traMADol 50 MG TAB PO PRN (15:28)
[2020-07-06] MEDS ORDERED: ACETAMINOPHEN TAB 325 MG TAB PO PRN (15:28)
[2020-07-06] MEDS ORDERED: NALOXONE 0.4 MG/ML 1 ML VIAL IV PRN (15:28)
[2020-07-06] MEDS ORDERED: ALBUTEROL HFA INHALER INHALATION PRN (15:31)
--- NOTE | 2020-07-06 15:36 | P.OP ---
Date of Procedure: 07/06/20 Preoperative Diagnosis: Right hip femoral neck fracture displaced, acute traumatic status post fall Postoperative Diagnosis: Right hip femoral neck fracture displaced, acute traumatic status post fall Anesthesia: GETA Condition: stable Disposition: PACU Description of Procedure: Preoperative diagnosis: Right hip femoral neck fracture displaced, acute traumatic status post fall Postoperative diagnosis: Same Procedure: Hip hemiarthroplasty right Surgeon: Dr. Dalton Trinidad.: Connor Zarate who is present that the entire the case persistence during positioning dissection exposure placement of hardware and closure Anesthesia: Spinal per Dr. Mack Estimated blood loss:150 Components implanted: [employer] press-fit hemiarthroplasty fracture stem size 2 with a +4 neck and 42 head Disposition: To recovery room in good stable condition Operative indications The patient sustained a injury and suffered a femoral neck fracture which was displaced and angulated. We were involved in the case in regard to his hip fracture. She is alert but is not aware of her place and time. She'll follow some commands. She has great pain when she would move her hip. She normally is a limited ambulator with assistance. After evaluation it was determined that they would be a candidate for hip hemiarthroplasty via surgical intervention. This would give them the best chance of mobilization and ambulation. We discussed the range of treatment options from conservative to surgical. They elected proceed with surgical intervention. We answered their questions to the best of our ability healing which they can understand. They signed an informed consent via the nursing staff and the daughter. Operative summary After obtaining informed consent evaluation by anesthesia, preoperative evaluation and clearance for medical service, the patient was identified and prepped Kurtz area and the surgical site was marked. There brought to the operating room where the given appropriate anesthesia by the anesthesia department in standard fashion without any complications. Once the anesthesia was established we were able to position the patient. There placed in a lateral decubitus position with the right hip up with the operative side up being careful to pad any bony prominences and pressure points and place a excellent roll appropriately. The airway and C-spine was monitored continuously. Once patient was well positioned lower extremity was prepped and draped in normal standard sterile fashion. An appropriate keystone protocol and timeout was completed and were able to proceed with surgery. A curvilinear incision was established over the greater trochanter. Dissection was taken down to the tensor fascia pedro which was split in line with its fibers and extended proxim ally into the gluteal fibers. A Charnley retractor was established. The trochanteric bursa was inflamed and removed. I was able to then dissect down off the posterior aspect of the greater trochanter taking the piriformis tendon and the posterior capsule in one full-thickness flap and tacking it with suture. This expose the fracture at the femoral neck which was easily identified. A guide was used to establish the appropriate femoral neck cut and a bone- cutting saw was used to establish the femoral neck cut and good alignment and good position. All the bony fragments were removed. I was then able to use a corkscrew device to remove the femoral head from the acetabulum. Any loose fragments in the acetabulum were removed. The femoral head was measured for the appropriate size implant and then passed off for pathology. Appropriate retractors were placed and I established a lateral box cut chisel. I then used a starting reamer to establish the femoral canal area I then sequentially reamed with sequential reamers until we had good bony chatter distally. With this we then started to broach with sequential broaches to the appropriate sized to we had good fit and fill. There is no evidence any fracture in the possible femur. With the appropriate size broach well seated and stable I placed the trial neck and head. A gentle reduction was performed to get good reduction. The hip was taken through a good range of motion and found to be stable in the position of sleep and through a range of motion. It had a good shuck test. We were able to then dislocate the trial prosthesis. The broach was found to remain stable. It was then removed. The wound was copiously irrigated and suctioned dry with pulsatile lavage And with appropriate irrigation. The appropriate size femoral stem was chosen and positioned and placed in good alignment and good position with excellent fit and fill seated appropriately over the calcar. It was checked and found to be stable. The trunnion was cleaned and dried the femoral head was then positioned over the femoral neck malleted in position checked and found to be stable. The hip prosthesis was then gently reduced back into the acetabulum and found to have excellent position and excellent stability and excellent range of motion with stability. There is no evidence of dislocation or fracture. The wound was copiously irrigated and suctioned dry. We are able to proceed with closure. The piriformis and posterior capsule were reapproximated to the posterior aspect of the greater trochanter with transosseous stitches. The wound was irrigated and suctioned dry. The fascia was closed with #2 Quill for watertight closure. Subcutaneous tissue was irrigated and suctioned dry. Subcu tissues closed with 2-0 Vicryl subcuticular tissue was closed with 30 Quill. Wound is clean and dried and dressed with Dermabond , and have to foam dressing. Drapes were broken down, the hip was held in stable position, and an abduction pillow was placed. The patient was then transferred back to their hospital bed being careful to maintain the hip and C-spine alignment and airway. Once stable to patient was transferred back to the postanesthesia care unit to be readmitted for pain control and DVT prophylaxis medical management and monitoring and mobilization we will continue follow patient closely throughout their postoperative course.
[2020-07-06 15:55] VITALS: RESP 16
[2020-07-06 16:32] LABS: Basophils # (A) 0.1 k/uL (0-0.2); Basophils % (A) 1 %; Eosinophils # (A) 0.1 k/uL (0-0.7); Eosinophils % (A) 1 %; HCT 35.6 % (34.0-46.0); HGB 12.2 gm/dL (11.4-16.0); Lymphocytes # (A) 0.5 k/uL (1.0-4.8); Lymphocytes % (A) 5 %; MCH 33.6 pg (25.0-35.0); MCHC 34.1 g/dL (31.0-37.0); MCV 98.5 fL (80.0-100.0); Mean Platelet Volume 7.2; Monocytes # (A) 0.5 k/uL (0-1.0); Monocytes % (A) 5 %; Neutrophils # (A) 8.7 k/uL (1.3-7.7); Neutrophils % (A) 88 %; Platelet Count 210 k/uL (150-450); RBC 3.62 m/uL (3.80-5.40); RDW 13.9 % (11.5-15.5); WBC 9.9 k/uL (3.8-10.6)
[2020-07-06] MEDS: SODIUM CHLORIDE 0.9% 1,000 ML IV SCH ×2 (17:22→17:23)
--- NOTE | 2020-07-06 18:10 | PN ---
PROGRESS NOTE An 85-year-old white female, status post hip fracture. She apparently had surgery today for a hip fracture with a pin placement by Dr. Hoffman. CARDIOVASCULAR: S1-S2. LUNGS: Clear. GI: Soft. HEMATOLOGY: Negative Homans. ASSESSMENT: 1. Status post left subcapital hip fracture. 2. Mild rhabdomyolysis. 3. Hypertension. 4. Dementia. 5. Chronic obstructive pulmonary disease. 6. Negative for coronavirus. Prognosis guarded. PT, OT, rehab center placement. MMODL / IJN: [id number] /
[2020-07-06] MEDS: ALPRAZolam 0.25 MG TAB PO SCH (21:14)
[2020-07-06] MEDS: NITROFURANTOIN MONOHYD/M-CRYST 100 MG CAP PO SCH (21:14)
[2020-07-07] MEDS: SODIUM CHLORIDE 0.9% 1,000 ML IV SCH ×2 (04:21→08:54)
[2020-07-07] MEDS: LEVOTHYROXINE 50 MCG TAB PO SCH (05:53)
[2020-07-07] MEDS: IPRATROPIUM-ALBUTEROL 3 ML NEB INHALATION SCH ×4 (08:40→20:40)
[2020-07-07] MEDS: SENNOSIDES-DOCUSATE SODIUM 1 EACH TAB PO SCH (08:51)
[2020-07-07] MEDS: ASPIRIN 325 MG TAB PO SCH (08:51)
[2020-07-07] MEDS: atenoloL 25 MG TAB PO SCH (08:51)
[2020-07-07] MEDS: PANTOPRAZOLE 40 MG TABLET PO SCH (08:51)
[2020-07-07] MEDS: NITROFURANTOIN MONOHYD/M-CRYST 100 MG CAP PO SCH ×2 (08:51→22:52)
[2020-07-07] MEDS: MULTIVITAMINS, THERA 1 EACH TAB PO SCH (08:51)
[2020-07-07] MEDS: MEMANTINE 5 MG TAB PO SCH ×2 (08:52→22:52)
[2020-07-07] MEDS: RALOXIFENE 60 MG TAB PO SCH (08:52)
[2020-07-07 09:41] LABS: Basophils # (A) 0.04 X 10*3/uL (0.00-0.10); Basophils % (A) 0.4 %; Eosinophils # (A) 0.06 X 10*3/uL (0.04-0.35); Eosinophils % (A) 0.6 %; HGB 10.8 g/dL (12.0-15.0); Lymphocytes # (A) 1.26 X 10*3/uL (0.90-5.00); Lymphocytes % (A) 11.9 %; MCH 31.7 pg (27.0-32.0); MCHC 31.8 g/dL (32.0-37.0); MCV 99.7 fL (80.0-97.0); Mean Platelet Volume 10.4 fL (9.5-12.2); Monocytes % (A) 7.6 %; Neutrophils # (A) 8.25 X 10*3/uL (1.80-7.70); Neutrophils % (A) 77.8 %; Platelet Count 205 X 10*3/uL (140-440); RBC 3.41 X 10*6/uL (4.10-5.20); RDW 15.2 % (11.5-14.5); WBC 10.59 X 10*3/uL (4.50-10.00)
--- NOTE | 2020-07-07 10:48 | P.PN ---
Progress Note - Text Progress Note Date: 07/07/20 Postoperative day #1 Patient is seen and examined today at bedside. The patient has some pain around the surgical site as expected. Pain is being controlled with medication. She is sitting up in a chair and comfortable. She's not complaining of any new pains. Physical Exam Afebrile with stable vital signs Abdomen is soft nontender. Chest has good excursion deep and space expiration The incision site is clean dry and intact. No erythema there is no purulence. Her thigh and calf are soft and nontender Extremities have not had neurologic change from prior to surgery. She has sustained dorsal to plantar flexion and EHL. She is not having pain with internal/external rotation gently at her hips. Calves and thighs were soft nontender without evidence of DVT. Assessment/Plan Postoperative day #1 status post hip hemiarthroplasty for her acute traumatic femoral neck fracture Patient is progressing as expected from the surgery. We will continue to increase the patient's mobilization with therapy. It is okay for her to weight-bear as tolerated and she'll continue to increase her mobilization. It is okay from an orthopedic standpoint for her to be discharged to assisted when she is ready per medicine. We will continue pain control with oral or IV medications. We'll continue to follow patient closely.
[2020-07-07 21:07] LABS: African American GFR (CKD) 76.8 (60.0-200.0); Albumin 3.1 g/dL (3.80-4.90); Albumin/Globulin Ratio 1.48 (1.60-3.17); Anion Gap 6.8 mmol/L (4.00-12.00); BUN/Creat Ratio 21.25 Ratio (12.00-20.00); Calcium 8.2 mg/dL (8.7-10.3); Carbon Dioxide 22.2 mmol/L (21.6-31.8); Globulin 2.1 g/dL (1.6-3.3); Non-African American GFR(CKD) 66.3 (60.0-200.0); Potassium 4.5 mmol/L (3.5-5.5); Total Bilirubin 0.3 mg/dL (0.2-1.2); Total Protein 5.2 g/dL (6.2-8.2)
[2020-07-07] MEDS: ALPRAZolam 0.25 MG TAB PO SCH (22:52)
[2020-07-08 04:34] VITALS: PULSE 99
[2020-07-08] MEDS: LEVOTHYROXINE 50 MCG TAB PO SCH (05:59)
[2020-07-08] MEDS: SODIUM CHLORIDE 0.9% 1,000 ML IV SCH ×3 (08:05→10:15)
--- NOTE | 2020-07-08 08:42 | P.PN ---
Progress Note - Text Progress Note Date: 07/08/20 Orthopedics: History of present illness: Patient is a very pleasant 85-year-old female who is seen and examined at the bedside for follow up evaluation for her right hip. She is status post right hip hemiarthroplasty after sustaining a right hip femoral neck displaced fracture after a fall. Patient is known to have dementia. She does state at the bedside her pain is well-controlled and her right hip. She does not currently have any complaints in regards to her right hip. She is eating this morning without any significant difficulty. She continues to be seen and examined by medicine for her other medical diagnoses. She is planning for di scharge to a rehabilitation facility once cleared by medicine. Patient is currently on Macrobid for a urinary tract infection. She has a medical history which includes dementia, heart failure, and COPD. Physical Exam Hip Hemiarthroplasty: Status post surgical day number 2 Patient is examined sitting upright in bed Patient is awake and alert and answers questions but continues to have some confusion Vital signs stable Good chest excursion with deep inspiration and expiration No signs or symptoms of DVT; no calf pain Lower extremity cuffs in place bilaterally Abductor pillow not currently intact Dressing of the right hip is clean, dry, and intact; no erythema, purulence, or signs of infection No significant pain with palpation over the surgical site Full range of motion of ankles bilaterally Dorsiflexion, plantarflexion, and extensor hallucis longus positive sustained bilaterally Neurovascularly intact bilateral lower extremities Capillary refill less than 2 seconds bilateral lower extremities Assessment: Status post right hip hemiarthroplasty for right hip femoral neck displaced fracture status post fall Right hip pain Dementia Heart failure COPD Urinary tract infection; E. coli Plan: 1. Patient may continue to weight-bear as tolerated on the right lower extremity; patient may work with physical therapy to increase mobility and ambulation 2. Continue pain control; we will plan for Tylenol 650 mg 1 tab every 4 hours as needed for pain at the time of discharge 3. Abductor pillow to remain in place at all times except while working with therapy 4. Medicine to continue following the patient for their other medical diagnoses 5. Continue with with anticoagulation therapy aspirin 325 mg 1 tab daily; she'll be given a prescription at the time of discharge 5. We'll continue to follow the patient; from an orthopedic standpoint, patient is clear for discharge once cleared by medicine: Patient will plan to be discharged to a rehabilitation facility 6. Patient can follow-up with Connor Fraser PA-C or Dr. Avtar Hoffman at [facility] in 2-3 weeks following discharge
[2020-07-08] MEDS: atenoloL 25 MG TAB PO SCH (10:13)
[2020-07-08] MEDS: SENNOSIDES-DOCUSATE SODIUM 1 EACH TAB PO SCH (10:13)
[2020-07-08] MEDS: PANTOPRAZOLE 40 MG TABLET PO SCH (10:13)
[2020-07-08] MEDS: MULTIVITAMINS, THERA 1 EACH TAB PO SCH (10:13)
[2020-07-08] MEDS: NITROFURANTOIN MONOHYD/M-CRYST 100 MG CAP PO SCH (10:14)
[2020-07-08] MEDS: MEMANTINE 5 MG TAB PO SCH (10:14)
[2020-07-08] MEDS: ASPIRIN 325 MG TAB PO SCH (10:14)
[2020-07-08] MEDS: RALOXIFENE 60 MG TAB PO SCH (10:15)
[2020-07-08] MEDS: IPRATROPIUM-ALBUTEROL 3 ML NEB INHALATION SCH ×2 (10:54→17:07)
[2020-07-08 11:44] VITALS: BP 109/66; TEMP 98.6
--- NOTE | 2020-07-08 14:07 | DS ---
DISCHARGE SUMMARY DISCHARGE DIAGNOSES: 1. Subcapital fracture of the right femur. 2. Chronic obstructive pulmonary disease exacerbation. 3. Gastroesophageal reflux disease. 4. Dementia. 5. Urinary tract infection secondary to Escherichia coli. MEDICINES: Medicines will be: 1. Macrobid 100 b.i.d. for 7 days. 2. Cepacol lozenge, p.r.n. for sore throat. 3. Senokot 1 daily. 4. Aspirin 325 mg daily. 5. Tylenol 650 q.4 p.r.n. 6. DuoNeb updrafts q.i.d. 7. Limon 5/325 q.6 hours p.r.n. 8. Albuterol inhaler 2 puffs q.4 hours p.r.n. 9. Evista 60 mg daily, she takes for her breast cancer, in remission. 10.Synthroid 50 mcg daily. 11.Omeprazole 40 daily. 12.Multivitamin daily. 13.Namenda 5 mg b.i.d. 14.Atenolol 25 daily. 15.Xanax 0.25 mg at bedtime. CONDITION: Stable. PROGNOSIS: Guarded. DIET: Regular. This 85-year-old white female, fell and broke her hip, had subcapital fracture of the right femur, pin was placed. Postoperative surgical care, she will need PT, OT to increase ambulating. Her COPD and dementia were treated with medicines as above as well as UTI treated with nitrofurantoin for [address] [facility] MMODL / IJN: [id number] /
[2020-07-08 15:41] LABS: Basophils # (A) 0.1 k/uL (0-0.2); Basophils % (A) 1 %; Eosinophils # (A) 0.2 k/uL (0-0.7); Eosinophils % (A) 2 %; HCT 33.9 % (34.0-46.0); Lymphocytes # (A) 0.9 k/uL (1.0-4.8); Lymphocytes % (A) 11 %; MCH 31.1 pg (25.0-35.0); MCHC 32.4 g/dL (31.0-37.0); Mean Platelet Volume 7.5; Monocytes # (A) 4.2 k/uL (0-1.0); Monocytes % (A) 50 %; Neutrophils # (A) 2.8 k/uL (1.3-7.7); Neutrophils % (A) 33 %; Platelet Count 206 k/uL (150-450); RBC 3.53 m/uL (3.80-5.40); RDW 14.1 % (11.5-15.5); WBC 8.4 k/uL (3.8-10.6)
[2020-07-08 15:57] LABS: Eosinophils # (M) 0.34 k/uL (0-0.7); Lymphocytes # (M) 1.09 k/uL (1.0-4.8); Monocytes # (M) 0.42 k/uL (0-1.0); Neutrophils # (M) 6.55 k/uL (1.3-7.7); Neutrophils % (M) 78 %; Nucleated Red Blood Cells 0 /100 WBC (0-0); Total Cells Counted 100
== END 2020-07-08 19:36 | DRG 522 ==
LOC: EC 11:18 → 5NMEDONC 13:43
PROVIDERS: ADMIT Family Medicine; ATTEND Family Medicine
PROC: 0SR901A Replacement of Right Hip Joint with Metal Synthetic Substitute, Uncemented, Open Approach (ICD-10-PCS; principal; 2020-07-05)
DX: S72.011A Unspecified intracapsular fracture of right femur, initial encounter for closed fracture (principal); J44.1 Chronic obstructive pulmonary disease with (acute) exacerbation; N39.0 Urinary tract infection, site not specified; M62.82 Rhabdomyolysis; K21.9 Gastro-esophageal reflux disease without esophagitis; E03.9 Hypothyroidism, unspecified; Z20.822 Contact with and (suspected) exposure to COVID-19; F03.90 Unspecified dementia, unspecified severity, without behavioral disturbance, psychotic disturbance, mood disturbance, and anxiety; I11.0 Hypertensive heart disease with heart failure; I50.9 Heart failure, unspecified; W19.XXXA Unspecified fall, initial encounter; Y92.002 Bathroom of unspecified non-institutional (private) residence as the place of occurrence of the external cause; B96.20 Unspecified Escherichia coli [E. coli] as the cause of diseases classified elsewhere; Z85.3 Personal history of malignant neoplasm of breast; Z85.89 Personal history of malignant neoplasm of other organs and systems; Z90.11 Acquired absence of right breast and nipple; Z98.42 Cataract extraction status, left eye; Z98.41 Cataract extraction status, right eye; Z82.49 Family history of ischemic heart disease and other diseases of the circulatory system; Z80.3 Family history of malignant neoplasm of breast; Z88.1 Allergy status to other antibiotic agents; Z79.82 Long term (current) use of aspirin; Z79.890 Hormone replacement therapy; Z79.899 Other long term (current) drug therapy; Z87.19 Personal history of other diseases of the digestive system; Z98.890 Other specified postprocedural states
CPT/HCPCS: 36415; 70450; 71045; 72125; 73502; 80053; 82550; 85025; 85610; 85730; 87077; 87086; 87186; 87635; 88305; 88311; 93005; 94640

== ENCOUNTER 2021-01-06 13:35 | Inpatient (IN) | payer MEDICARE ==
[2021-01-06] MEDS ORDERED: SODIUM CHLORIDE 0.9% 500 ML 500 ML IV STA (14:32)
[2021-01-06 15:04] LABS: Basophils # (A) 0.1 k/uL (0-0.2); Basophils % (A) 1 %; Eosinophils # (A) 0.1 k/uL (0-0.7); Eosinophils % (A) 1 %; HCT 35.5 % (34.0-46.0); HGB 11.7 gm/dL (11.4-16.0); Lymphocytes # (A) 2.2 k/uL (1.0-4.8); Lymphocytes % (A) 31 %; MCH 30.9 pg (25.0-35.0); MCHC 32.9 g/dL (31.0-37.0); MCV 93.9 fL (80.0-100.0); Mean Platelet Volume 7.2; Monocytes # (A) 0.4 k/uL (0-1.0); Monocytes % (A) 5 %; Neutrophils # (A) 4.3 k/uL (1.3-7.7); Neutrophils % (A) 60 %; Platelet Count 269 k/uL (150-450); RBC 3.78 m/uL (3.80-5.40); RDW 13.9 % (11.5-15.5); WBC 7.1 k/uL (3.8-10.6)
--- NOTE | 2021-01-06 15:10 | XR ---
EXAMINATION TYPE: XR chest 1V portable DATE OF EXAM: 01/06/2021 COMPARISON: 07/05/2020 HISTORY: Chest pain TECHNIQUE: Single frontal view of the chest is obtained. FINDINGS: Calcified lymph node in the hilum and calcified granuloma left lower lobe. Bilateral lower lobe infiltrate and small effusion. No pneumothorax. Degenerative change of the spine. Arthropathy o f the shoulders. Hyperinflation. IMPRESSION: 1. Bilateral lower lobe infiltrate and small effusion. Underlying COPD noted. 2. Chronic granulomatous disease.
[2021-01-06 15:11] LABS: Albumin 2.9 g/dL (3.5-5.0); Calcium 7.8 mg/dL (8.4-10.2); Potassium 4.4 mmol/L (3.5-5.1); Total Bilirubin 0.5 mg/dL (0.2-1.3); Total Protein 6.3 g/dL (6.3-8.2)
[2021-01-06 15:13] LABS: Appearance,Urine Turbid (Clear); Bacteria,Urine Moderate /hpf; Bilirubin,Urine Negative (Negative); Blood,Urine Small (Negative); Color,Urine Yellow; Glucose,Urine (UA) Negative (Negative); Ketones,Urine Negative (Negative); Leukocyte Esterase,Urine Large (Negative); Mucus,Urine Rare /hpf; Nitrite,Urine Negative (Negative); Protein,Urine 2+ (Negative); RBC,Urine 9 /hpf (0-5); Specific Gravity,Urine 1.012 (1.001-1.035); Urobilinogen,Urine <2.0 mg/dL (<2.0); WBC,Urine >182 /hpf (0-5)
[2021-01-06 15:34] LABS: INR 0.9 (<1.2); Partial Thromboplastin Time 21.9 sec (22.0-30.0); Prothrombin Time 9.8 sec (9.0-12.0)
--- NOTE | 2021-01-06 16:06 | ED ---
General Adult HPI - General Chief complaint: Upper Respiratory Infection Stated complaint: Covid+/KRISTA Time Seen by Provider: 01/06/21 14:10 Source: patient, EMS, RN notes reviewed, old records reviewed Mode of arrival: EMS Limitations: no limitations, language barrier - History of Present Illness Initial comments: Patient was evaluated when she was placed in room.Patient is an 85-year-old female with past medical history remarkable for COPD, dementia at baseline is alert and oriented times one, GERD, cancer, heart failure, who presents emergency department after being sent from her nursing facility for increased work of breathing. Patient is positive for Covid today. Symptoms started yesterday. Baseline is alert and oriented times one to self, which is where she is at currently. Patient is no acute complaints at this time, including denying any chest pain, shortness breath, cough, fevers, abdominal pain. 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 She is a history of COPD. She has no acute complaint at this time. She is a limited historian secondary to her dementia. - Related Data Home Medications Medication Instructions Recorded Confirmed Levothyroxine Sodium [Synthroid] 50 mcg PO DAILY@79904/01/17 01/06/21 Raloxifene [Evista] 60 mg PO HS@199904/01/17 01/06/21 Memantine [Namenda] 5 mg PO BID@799,199911/02/19 01/06/21 Multivitamins, Thera [Multivitamin 1 tab PO DAILY@79911/02/19 01/06/21 (formulary)] Omeprazole 40 mg PO DAILY@79911/02/19 01/06/21 atenoloL 25 mg PO DAILY@79911/02/19 01/06/21 ALPRAZolam [Xanax] 0.25 mg PO HS@199907/05/20 01/06/21 Aspirin 325 mg PO DAILY@79901/06/21 01/06/21 Ipratropium-Albuterol Nebulize 3 ml INHALATION RT-BID@799,199901/06/21 01/06/21 [Duoneb 0.5 mg-3 mg/3 ml Soln] Sennosides-Docusate Sodium 1 tab PO DAILY@79901/06/21 01/06/21 [Senokot-S] Tylenol Gelcaps (Unknown Strength) 2 cap PO BID@0800,199901/06/21 01/06/21 Tylenol Gelcaps (Unknown Strength) 2 cap PO Q8H PRN 01/06/21 01/06/21 Previous Rx's Medication Instructions Recorded Albuterol Inhaler [Ventolin Hfa 2 puff INHALATION RT-Q4H PRN puff 07/08/20 Inhaler] HYDROcodone/APAP 5-325MG [[place] 1 tab PO Q6HR PRN 3 Days #12 tab 07/08/20 5-325] Allergies Allergy/AdvReac Type Severity Reaction Status Date / Time cefuroxime Allergy Intermediate Hives Verified 01/06/21 14:57 Review of Systems ROS Statement: Those systems with pertinent positive or pertinent negative responses have been documented in the HPI. Difficult to obtain secondary to patient's dementia. ROS Other: All systems not noted in ROS Statement are negative. 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 Past Anesthesia/Blood Transfusion Reactions: No Reported Reaction Past Psychological History: No Psychological Hx Reported Smoking Status: Never smoker Past Alcohol Use History: None Reported Past Drug Use History: None Reported - Past Family History Father Additional Family Medical History / Comment(s): heart disease. Mother Additional Family Medical History / Comment(s): heart disease. Sister(s) Family Medical History: Cancer Additional Family Medical History / Comment(s): 3 SISTERS WITH BREAST CA General Exam - General Exam Comments Initial Comments: General: He is cachectic, but in no acute distress. HEAD: Normal with no signs of head trauma. EYES: PERRLA, EOMI, conjunctiva normal, no discharge. Peoples are 3 mm equal bilaterally. ENT: Hearing grossly intact, normal oropharynx. RESPIRATORY: Relatively clear breath sounds bilaterally without any obvious wheezes or rales. No obvious rhonchi. No increased work of breathing. C/V: Regular rate and rhythm. S1 and S2 auscultated, no edema, peripheral pulses 2+ and intact throughout ABD: Abd is soft, nontender, nondistended EXT: Normal range of motion. Patient has chronic deformity to the right upper extremity, having no developed hand. SKIN: No rashes or lesions observed on exposed skin. NEURO: Alert and oriented times one, which is her baseline. Able to move all 4 extremities without difficulty. No acute focal deficit. Limitations: no limitations, language barrier Course Vital Signs 01/06/21 01/06/21 01/06/21 13:40 14:58 15:00 Temperature 97.3 F L Pulse Rate 102 H 90 Respiratory 18 18 18 Rate Blood Pressure 123/58 102/56 O2 Sat by Pulse 95 95 Oximetry Medical Decision Making - Medical Decision Making Based on the patient's presentation and physical exam, I cannot rule out possibly cardiac etiology for the suspected increased work of breathing, however it does appear that she is a COVID-19 infection based on information to us but we don't have in our system. Therefore we will obtain a cardiac exam, chest x-ray, Covid swab. Urinalysis also be obtained. Patient seemed in agreement this plan. She has no other acute complaints at this time. Patient's EKG revealed no signs of acute ischemia. Chest x-ray shows underlying COPD with bilateral lower lobe infiltrate likely secondary to her positive COVID-19 test. Upper studies are remarkable for an elevated d-dimer of 1.33. She has a mild hyponatremia of 130. Troponin is negative. Lactate is within normal limits. Urinalysis is remarkable for a urinary tract infection with positive WBCs, leukocyte estherase. Due to the elevated d-dimer, we'll obtain a CT angiogram to rule out possibly of pulmonary embolism. CT angios obtain revealed no signs of pulmonary embolism. Was remarkable for no acute PE. There is a large hiatal hernia. There are also patchy groundglass opacities likely secondary to her COVID-19 infection. There are chronic emphysematous changes as well as calcified CAD. Due to the patient's unit tract infection as well as COVID-19 infection, I would like to admit her to the hospital. As the patient is not be admitted for her COVID-19 infection, she will receive the monoclonal antibody therapy here in the ED prior to admission. Patient be started on Bactrim DS twice a day for her urinary tract infection secondary to her ALLERGIES to Rocephin. Patient was in agreement this plan. Physical crit the patient's admitting physician, Dr. Bartholomew who accepted the patient. Patient was therefore admitted in observation in stable condition. - Lab Data Result diagrams: 01/06/21 14:57 01/06/21 14:57 Lab Results 01/06/21 01/06/21 01/06/21 Range/Units 14:57 14:57 14:57 WBC 7.1 (3.8-10.6) k/uL RBC 3.78 L (3.80-5.40) m/uL Hgb 11.7 (11.4-16.0) gm/dL Hct 35.5 (34.0-46.0) % MCV 93.9 (80.0-100.0) fL MCH 30.9 (25.0-35.0) pg MCHC 32.9 (31.0-37.0) g/dL RDW 13.9 (11.5-15.5) % Plt Count 269 (150-450) k/uL MPV 7.2 Neutrophils % 60 % Lymphocytes % 31 % Monocytes % 5 % Eosinophils % 1 % Basophils % 1 % Neutrophils # 4.3 (1.3-7.7) k/uL Lymphocytes # 2.2 (1.0-4.8) k/uL Monocytes # 0.4 (0-1.0) k/uL Eosinophils # 0.1 (0-0.7) k/uL Basophils # 0.1 (0-0.2) k/uL PT 9.8 (9.0-12.0) sec INR 0.9 (<1.2) APTT 21.9 L (22.0-30.0) sec D-Dimer 1.33 H (<0.60) mg/L FEU Sodium 130 L (137-145) mmol/L Potassium 4.4 (3.5-5.1) mmol/L Chloride 104 (98-107) mmol/L Carbon Dioxide 21 L (22-30) mmol/L Anion Gap 5 mmol/L BUN 19 H (7-17) mg/dL Creatinine 0.84 (0.52-1.04) mg/dL Est GFR (CKD-EPI)AfAm 72 (>60 ml/min/1.73 sqM) Est GFR (CKD-EPI)NonAf 63 (>60 ml/min/1.73 sqM) Glucose 99 (74-99) mg/dL Plasma Lactic Acid [place]ilo (0.7-2.0) mmol/L Calcium 7.8 L (8.4-10.2) mg/dL Magnesium 2.0 (1.6-2.3) mg/dL Total Bilirubin 0.5 (0.2-1.3) mg/dL AST 49 H (14-36) U/L ALT 17 (4-34) U/L Alkaline Phosphatase 67 (38-126) U/L Troponin I (0.000-0.034) ng/mL NT-Pro-B Natriuret Pep pg/mL Total Protein 6.3 (6.3-8.2) g/dL Albumin 2.9 L (3.5-5.0) g/dL Urine Color Urine Appearance (Clear) Urine pH (5.0-8.0) Ur Specific [place] (1.001-1.035) Urine Protein (Negative) Urine Glucose (UA) (Negative) Urine Ketones (Negative) Urine Blood (Negative) Urine Nitrite (Negative) Urine Bilirubin (Negative) Urine Urobilinogen (<2.0) mg/dL Ur Leukocyte Esterase (Negative) Urine RBC (0-5) /hpf Urine WBC (0-5) /hpf Urine WBC Clumps (None) /hpf Urine Bacteria (None) /hpf Urine Mucus (None) /hpf Coronavirus (PCR) (Not Detectd) 01/06/21 01/06/21 01/06/21 Range/Units 14:57 14:57 14:57 WBC (3.8-10.6) k/uL RBC (3.80-5.40) m/uL Hgb (11.4-16.0) gm/dL Hct (34.0-46.0) % MCV (80.0-100.0) fL MCH (25.0-35.0) pg MCHC (31.0-37.0) g/dL RDW (11.5-15.5) % Plt Count (150-450) k/uL MPV Neutrophils % % Lymphocytes % % Monocytes % % Eosinophils % % Basophils % % Neutrophils # (1.3-7.7) k/uL Lymphocytes # (1.0-4.8) k/uL Monocytes # (0-1.0) k/uL Eosinophils # (0-0.7) k/uL Basophils # (0-0.2) k/uL PT (9.0-12.0) sec INR (<1.2) APTT (22.0-30.0) sec D-Dimer (<0.60) mg/L FEU Sodium (137-145) mmol/L Potassium (3.5-5.1) mmol/L Chloride (98-107) mmol/L Carbon Dioxide (22-30) mmol/L Anion Gap mmol/L BUN (7-17) mg/dL Creatinine (0.52-1.04) mg/dL Est GFR (CKD-EPI)AfAm (>60 ml/min/1.73 sqM) Est GFR (CKD-EPI)NonAf (>60 ml/min/1.73 sqM) Glucose (74-99) mg/dL Plasma Lactic Acid Te[place]ilo 1.0 (0.7-2.0) mmol/L Calcium (8.4-10.2) mg/dL Magnesium (1.6-2.3) mg/dL Total Bilirubin (0.2-1.3) mg/dL AST (14-36) U/L ALT (4-34) U/L Alkaline Phosphatase (38-126) U/L Troponin I <0.012 (0.000-0.034) ng/mL NT-Pro-B Natriuret Pep pg/mL Total Protein (6.3-8.2) g/dL Albumin (3.5-5.0) g/dL Urine Color Yellow Urine Appearance Turbid H (Clear) Urine pH 6.0 (5.0-8.0) Ur Specific [place] 1.012 (1.001-1.035) Urine Protein 2+ H (Negative) Urine Glucose (UA) Negative (Negative) Urine Ketones Negative (Negative) Urine Blood Small H (Negative) Urine Nitrite Negative (Negative) Urine Bilirubin Negative (Negative) Urine Urobilinogen <2.0 (<2.0) mg/dL Ur Leukocyte Esterase Large H (Negative) Urine RBC 9 H (0-5) /hpf Urine WBC >182 H (0-5) /hpf Urine WBC Clumps Many H (None) /hpf Urine Bacteria Moderate H (None) /hpf Urine Mucus Rare H (None) /hpf Coronavirus (PCR) (Not Detectd) 01/06/21 01/06/21 Range/Units 14:57 14:57 WBC (3.8-10.6) k/uL RBC (3.80-5.40) m/uL Hgb (11.4-16.0) gm/dL Hct (34.0-46.0) % MCV (80.0-100.0) fL MCH (25.0-35.0) pg MCHC (31.0-37.0) g/dL RDW (11.5-15.5) % Plt Count (150-450) k/uL MPV Neutrophils % % Lymphocytes % % Monocytes % % Eosinophils % % Basophils % % Neutrophils # (1.3-7.7) k/uL Lymphocytes # (1.0-4.8) k/uL Monocytes # (0-1.0) k/uL Eosinophils # (0-0.7) k/uL Basophils # (0-0.2) k/uL PT (9.0-12.0) sec INR (<1.2) APTT (22.0-30.0) sec D-Dimer (<0.60) mg/L FEU Sodium (137-145) mmol/L Potassium (3.5-5.1) mmol/L Chloride (98-107) mmol/L Carbon Dioxide (22-30) mmol/L Anion Gap mmol/L BUN (7-17) mg/dL Creatinine (0.52-1.04) mg/dL Est GFR (CKD-EPI)AfAm (>60 ml/min/1.73 sqM) Est GFR (CKD-EPI)NonAf (>60 ml/min/1.73 sqM) Glucose (74-99) mg/dL Plasma Lactic Acid Te[place]ilo (0.7-2.0) mmol/L Calcium (8.4-10.2) mg/dL Magnesium (1.6-2.3) mg/dL Total Bilirubin (0.2-1.3) mg/dL AST (14-36) U/L ALT (4-34) U/L Alkaline Phosphatase (38-126) U/L Troponin I (0.000-0.034) ng/mL NT-Pro-B Natriuret Pep 726 pg/mL Total Protein (6.3-8.2) g/dL Albumin (3.5-5.0) g/dL Urine Color Urine Appearance (Clear) Urine pH (5.0-8.0) Ur Specific [place] (1.001-1.035) Urine Protein (Negative) Urine Glucose (UA) (Negative) Urine Ketones (Negative) Urine Blood (Negative) Urine Nitrite (Negative) Urine Bilirubin (Negative) Urine Urobilinogen (<2.0) mg/dL Ur Leukocyte Esterase (Negative) Urine RBC (0-5) /hpf Urine WBC (0-5) /hpf Urine WBC Clumps (None) /hpf Urine Bacteria (None) /hpf Urine Mucus (None) /hpf Coronavirus (PCR) Detected A (Not Detectd) - EKG Data -: EKG Interpreted by Me EKG Comments: 12-lead Electrocardiogram Interpretation Note EKG was reviewed and interpreted by myself. 12-lead ECG performed at 1449 is interpreted by me as revealing normal sinus rhythm at a rate of 86 beats per minute. [place] is normal. HI interval is 164 ms, QRS duration 66 ms, QTc is 430 ms.. There were no ST or T wave abnormalities to suggest myocardial ischemia or injury. R wave progression across the precordium was satisfactory. By my interpretation this EKG is non-diagnostic for acute ischemia. Disposition Clinical Impression: Pneumonia due to COVID-19 virus, UTI (urinary tract infection), Elevated d-dimer, Dementia, History of COPD Disposition: ADMITTED IP TO THIS [facility] Condition: Stable Referrals: Victor Hugo Zhong MD [Primary Care Provider] - 1-2 days
[2021-01-06] MEDS ORDERED: CASIRIVIMAB (REGN10933) (EUA) 600 MG, IMDEVIMAB (REGN10987) (EUA) 600 MG in SODIUM CHLO... IVPB ONE (17:00)
--- NOTE | 2021-01-06 17:06 | CT ---
EXAM: CT chest angio for PE DATE OF EXAM: 01/06/2021 COMPARISON: Radiograph same day. Also, chest CT 04/01/2017. HISTORY: Headache with vomiting. TECHNIQUE: Contiguous axial scanning of the chest performed with IV Contrast, patient injected with 1 00 mL of Isovue 370. Coronal/sagittal MIP reconstructions performed. CT DLP: 222.5 mGycm Automated exposure control for dose reduction was used. FINDINGS: Heart borderline enlarged. No flattening of the interventricular septum. Mild reflux into the IVC. Ex tensive LAD and circumflex coronary artery calcifications are present. 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 Mildly ectatic ascending aorta at 3.5 cm. Mild to moderate atherosclerotic arch calcifications with conventional arch vessel branching anatomy. Extensive calcified left hilar lymph nodes. Satisfactory opacification of the pulmonary arterial system. There is motion artifact at the lower fei ngs limiting assessment. No definite pulmonary embolus. Dilatation of the thoracic esophagus with retained ingested debris. Some densities distal esophagus could relate to postsurgical change or calcified granulomas. Further clinical correlation is needed. Unable to exclude abnormal/neoplasm. Scattered prominent bilateral hilar lymph nodes measuring up to 1.2 cm probably reactive. Bibasilar groundglass consolidation. Some interstitial changes in the upper lungs, probably fibrosis. Mild emphysematous change. No pleural effusion. Visualized upper abdomen is limited by motion. Moderately advanced degenerative disc disease mid to lower thoracic spine. Dextro convex scoliosis of the spine. IMPRESSION: 1. MOTION ARTIFACT LIMITING ASSESSMENT. NO DEFINITE PULMONARY EMBOLUS. 2. DILATED THORACIC ESOPHAGUS WITH RETAINED INGESTED DEBRIS. UNABLE TO EXCLUDE DISTAL THIRD ESOPHAGEA L MASS, STRICTURE, OR ABNORMALLY THICKENED STOMACH IN THE SETTING OF A MODERATE SIZE HIATAL HERNIA. R ECOMMEND DIRECT VISUALIZATION. 3. PATCHY GROUNDGLASS CHANGES IN THE LOWER LUNGS. CORRELATE FOR POSSIBLE ASPIRATION PNEUMONITIS. 4. BACKGROUND EMPHYSEMA AND MILD INTERSTITIAL FIBROSIS. 5. CAD WITH EXTENSIVE LAD AND CIRCUMFLEX CORONARY ARTERY CALCIFICATIONS.
[2021-01-06] MEDS ORDERED: NALOXONE 0.4 MG/ML 1 ML VIAL IV PRN (17:20)
[2021-01-06] MEDS ORDERED: HYDROcodone/APAP 5-325MG 1 EACH TAB PO PRN (17:24)
[2021-01-06] MEDS ORDERED: ALBUTEROL HFA INHALER INHALATION PRN (17:24)
[2021-01-06] MEDS ORDERED: SODIUM CHLORIDE 0.9% 50 ML IVPB ONE (17:30)
[2021-01-06] MEDS ORDERED: IPRATROPIUM-ALBUTEROL 3 ML NEB INHALATION SCH (20:00)
[2021-01-06] MEDS ORDERED: cefTRIAXone IN SWFI 1,000 MG/10 ML SYRINGE IVP STA (20:30)
[2021-01-06] MEDS: ALBUTEROL HFA INHALER INHALATION SCH (20:32)
[2021-01-06] MEDS ORDERED: SODIUM CHLORIDE 0.9% 1,000 ML IV ONE (20:33)
[2021-01-06] MEDS ORDERED: HEPARIN SODIUM,PORCINE/PF 5,000 UNIT/0.5 ML SYRINGE SQ SCH (21:00)
--- NOTE | 2021-01-06 21:26 | HP ---
HISTORY AND PHYSICAL I am covering for Dr. Zhong. DATE OF SERVICE: 01/06/2021 CHIEF COMPLAINTS: Shortness of breath and change in mental status. HISTORY OF PRESENT ILLNESS: This 85-year-old woman with a past medical history of CHF, COPD, dementia, GERD, who is apparently a intermediate resident, was noted to have a cough and some sputum and was suspected to have upper respiratory infection. The patient also had shortness of breath. COVID test was found to be positive. The patient was transferred to [facility] and was admitted for evaluation and treatment. The patient is confused and unable to give a coherent history. Most of the history is taken from my discussion with staff and review of the chart. Hemoglobin is 11.7. The D-dimer was elevated at 1.33 and sodium is 130. The patient also had a chest x-ray which was reviewed personally by me. It showed bilateral lower lobe infiltrates and chronic granulomatous disease. CT angio was also done of the chest and also reviewed personally. It showed dilated thoracic esophagus and patchy ground-glass opacities and background emphysema, highly suggestive of COVID-19 pneumonia. The patient was admitted for further evaluation and treatment. There is no history of any trauma. PAST MEDICAL HISTORY: History of CHF, COPD, dementia, GERD, hypothyroidism. MEDICATIONS: Home medications are Tylenol, [place], Ventolin, Evista, omeprazole, multivitamin, Namenda, Senokot-S, Synthroid, DuoNeb aspirin, Xanax. Doses are reviewed. ALLERGIES: CEFUROXIME. FAMILY HISTORY: History of heart disease in the family. Social history and review of systems could not be taken because of change in mental status. PHYSICAL EXAMINATION: Patient is conscious, confused. Pulse 84, blood pressure 90/52, respiration 18, temperature normal, pulse ox 94% on room air. HEENT: Conjunctivae normal. NECK: No jugular venous distention. CARDIOVASCULAR: S1, S2 muffled. RESPIRATION: Breath sounds diminished at the bases. A few scattered rhonchi. ABDOMEN: Soft, non-tender. LEGS: No edema. No swelling. NERVOUS SYSTEM: Diffusely weak. SKIN: No ulcer, rash, bleeding. JOINTS: No active deforming arthropathy. LAB STUDIES: WBC 7.2, hemoglobin 11.7. Sodium 130. D-dimer is 1.33. UA noted. ASSESSMENT: 1. Acute COVID-19 infection with acute bilateral pneumonia with severe sepsis and hypotension and shock. 2. Possible acute urinary tract infection with sepsis, present on admission. 3. Change in mental status, acute on chronic metabolic encephalopathy. 4. History of chronic obstructive pulmonary disease. 5. History of congestive heart failure. 6. Dementia. 7. History of gastroesophageal reflux disease. 8. Hypothyroidism. 9. History of hiatal hernia. 10.Right mastectomy. 11.Right ankle fracture. 12.Severe protein-calorie malnutrition with body mass index of 18.9. 13.FULL CODE. RECOMMENDATIONS AND DISCUSSION: In this 85-year-old woman who presented with multiple complex medical issues, we will monitor the patient closely, continue the current medications, continue symptomatic treatment. Otherwise at this time I recommend empiric antibiotics and symptomatic treatment. IV fluids cautiously. I would also recommend infectious disease evaluation and pulmonary evaluation. Prognosis is guarded because of multiple complex medical issues. Further recommendations to follow. A copy of this dictation is being forwarded to Dr. Zhong, who is the primary physician. JUSTO / MIKEYN: [id number] / MTDD
[2021-01-06] MEDS: CHOLECALCIFEROL 25 MCG (1000 IU) TABLET PO SCH (21:55)
[2021-01-06] MEDS: ALPRAZolam 0.25 MG TAB PO SCH (21:55)
[2021-01-06] MEDS: MEMANTINE 5 MG TAB PO SCH (21:55)
[2021-01-06] MEDS: ENOXAPARIN 30 MG/0.3 ML SYRINGE SQ SCH (21:55)
[2021-01-06] MEDS: ZINC SULFATE 220 MG CAP PO SCH (21:56)
[2021-01-06] MEDS: RALOXIFENE 60 MG TAB PO SCH (22:01)
[2021-01-06] MEDS: SULFAMETHOX-TMP 800-160MG 1 EACH TAB PO SCH (22:02)
[2021-01-07] MEDS ORDERED: ACETAMINOPHEN TAB 325 MG TAB PO PRN (02:55)
[2021-01-07] MEDS: SODIUM CHLORIDE 0.9% 1,000 ML IV SCH ×4 (05:23→21:15)
[2021-01-07] MEDS ORDERED: SODIUM CHLORIDE 0.9% 500 ML 250 ML IV ONE (06:57)
[2021-01-07] MEDS: ALBUTEROL HFA INHALER INHALATION SCH ×4 (07:32→20:12)
[2021-01-07] MEDS: ENOXAPARIN 30 MG/0.3 ML SYRINGE SQ SCH (07:35)
[2021-01-07] MEDS: MULTIVITAMINS, THERA 1 EACH TAB PO SCH (07:35)
[2021-01-07] MEDS: SENNOSIDES-DOCUSATE SODIUM 1 EACH TAB PO SCH (07:36)
[2021-01-07] MEDS: ASPIRIN 325 MG TAB PO SCH (07:36)
[2021-01-07] MEDS: PANTOPRAZOLE 40 MG TABLET PO SCH (07:36)
[2021-01-07] MEDS: LEVOTHYROXINE 50 MCG TAB PO SCH (07:36)
[2021-01-07] MEDS: CHOLECALCIFEROL 25 MCG (1000 IU) TABLET PO SCH (07:36)
[2021-01-07] MEDS: MEMANTINE 5 MG TAB PO SCH ×2 (07:36→21:12)
[2021-01-07] MEDS: ASCORBIC ACID 500 MG TAB PO SCH (07:36)
[2021-01-07] MEDS: ZINC SULFATE 220 MG CAP PO SCH (07:36)
[2021-01-07] MEDS: atenoloL 25 MG TAB PO SCH (07:36)
[2021-01-07 07:42] LABS: African American GFR (CKD) 69 (>60 ml/min/1.73 sqM); Anion Gap 6 mmol/L; Blood Urea Nitrogen 14 mg/dL (7-17); Calcium 7.5 mg/dL (8.4-10.2); Carbon Dioxide 20 mmol/L (22-30); Chloride 109 mmol/L (98-107); Glucose 80 mg/dL (74-99); Non-African American GFR(CKD) 60 (>60 ml/min/1.73 sqM); Potassium 3.8 mmol/L (3.5-5.1); Sodium 135 mmol/L (137-145)
[2021-01-07 07:46] LABS: Basophils % (A) 1 %; Eosinophils % (A) 0 %; HCT 33.3 % (34.0-46.0); HGB 10.8 gm/dL (11.4-16.0); Lymphocytes # (A) 2.1 k/uL (1.0-4.8); Lymphocytes % (A) 28 %; MCH 30.6 pg (25.0-35.0); MCHC 32.6 g/dL (31.0-37.0); Mean Platelet Volume 7.4; Monocytes # (A) 0.3 k/uL (0-1.0); Monocytes % (A) 4 %; Neutrophils # (A) 4.9 k/uL (1.3-7.7); Neutrophils % (A) 65 %; Platelet Count 261 k/uL (150-450); RBC 3.54 m/uL (3.80-5.40); RDW 14.6 % (11.5-15.5); WBC 7.5 k/uL (3.8-10.6)
[2021-01-07] MEDS ORDERED: cefTRIAXone 1,000 MG VIAL (IM USE) IM SCH (09:00)
[2021-01-07] MEDS: SULFAMETHOX-TMP 800-160MG 1 EACH TAB PO SCH ×2 (10:55→21:12)
[2021-01-07] MEDS: TIOTROPIUM 2.5 MCG INHALER INHALATION SCH (11:36)
[2021-01-07 11:39] VITALS: BMI 18.8
--- NOTE | 2021-01-07 11:45 | XR ---
EXAMINATION TYPE: XR chest 1V DATE OF EXAM: 01/07/2021 COMPARISON: Chest x-ray 01/06/2021 HISTORY: Covert pneumonia TECHNIQUE: Single frontal view of the chest is obtained. FINDINGS: Patchy densities present at the lung bases. No evident pneumothorax. Cardiac mediastinal s ilhouette is stable. There are overlying leads. Patient is rotated. IMPRESSION: Correlate for pneumonia.
--- NOTE | 2021-01-07 15:44 | PN ---
PROGRESS NOTE I am covering for Dr. Zhong. DATE OF SERVICE: 01/07/2021 This 85-year-old woman who was admitted with shortness of breath and change in mental status had acute COVID-19 infection with bilateral pneumonia. The patient also had heart rate abnormality with bradycardia. The patient was admitted for further evaluation and treatment. Multiple consultations are in progress. Chest x-ray showed bilateral persistent pneumonia, right more the the left. Past medical history reviewed. REVIEW OF SYSTEMS: CARDIOVASCULAR: As mentioned earlier. RESPIRATORY SYSTEM: As mentioned earlier. GI: No nausea, vomiting, diarrhea. : No dysuria. NERVOUS SYSTEM: No numbness, weakness. CURRENT MEDICATIONS: Tylenol, [place], Ventolin, Xanax, vitamin C, aspirin, Tenormin, Rocephin. Other medications are noted. PHYSICAL EXAMINATION: Patient alert and oriented x2. Pulse 91, blood pressure 96/59, respirations 16, temperature 98.3, pulse ox 93% on room air. HEENT: Conjunctivae normal. NECK: No jugular venous distention. CARDIOVASCULAR: S1, S2 muffled. RESPIRATION: Breath sounds diminished at the bases. A few scattered rhonchi. ABDOMEN: Soft. NERVOUS SYSTEM: Diffusely weak. LABS: WBC 7.2, hemoglobin 10.8. D-dimer is 1.3. Sodium 135. COVID-19 is positive. Cultures are negative so far. ASSESSMENT: 1. Acute COVID-19 infection with acute bilateral pneumonia with severe sepsis and hypotension and shock. 2. Acute urinary tract infection, present on admission, with sepsis. 3. Bradycardiac with dropped beats with possible cardiac arrhythmia. 4. Change in mental status, acute on chronic metabolic encephalopathy. 5. History of chronic obstructive pulmonary disease. 6. History of congestive heart failure. 7. History of dementia. 8. History of gastroesophageal reflux disease. 9. Hypothyroidism. 10.History of hiatal hernia. 11.History of right mastectomy. 12.Right ankle fracture. 13.Severe protein-calorie malnutrition with body mass index of 18.9. 14.FULL CODE. RECOMMENDATIONS AND DISCUSSION: In this 85-year-old woman who presented with multiple complex medical issues, we will monitor the patient closely, continue the cautious hydration at 100 mL/hour, monitor blood pressure closely. Hold antihypertensive medications. Continue the antibiotics. Cultures are pending at this time. Infectious disease evaluation has been sought. Prognosis is guarded because of the multiple complex medical issues. Further recommendations to follow. MMODL / IJN: [id number] /
[2021-01-07] MEDS: ALPRAZolam 0.25 MG TAB PO SCH (21:12)
[2021-01-07] MEDS: RALOXIFENE 60 MG TAB PO SCH (21:58)
[2021-01-08] MEDS: ALBUTEROL HFA INHALER INHALATION SCH ×4 (08:20→20:54)
[2021-01-08] MEDS: TIOTROPIUM 2.5 MCG INHALER INHALATION SCH (08:20)
[2021-01-08] MEDS: SODIUM CHLORIDE 0.9% 1,000 ML IV SCH ×2 (09:03→18:06)
[2021-01-08] MEDS: SENNOSIDES-DOCUSATE SODIUM 1 EACH TAB PO SCH (09:04)
[2021-01-08] MEDS: ENOXAPARIN 30 MG/0.3 ML SYRINGE SQ SCH (09:04)
[2021-01-08] MEDS: ZINC SULFATE 220 MG CAP PO SCH (09:04)
[2021-01-08] MEDS: MEMANTINE 5 MG TAB PO SCH ×2 (09:04→19:35)
[2021-01-08] MEDS: ASPIRIN 325 MG TAB PO SCH (09:04)
[2021-01-08] MEDS: MULTIVITAMINS, THERA 1 EACH TAB PO SCH (09:05)
[2021-01-08] MEDS: ASCORBIC ACID 500 MG TAB PO SCH (09:05)
[2021-01-08] MEDS: PANTOPRAZOLE 40 MG TABLET PO SCH (09:05)
[2021-01-08] MEDS: atenoloL 25 MG TAB PO SCH (09:05)
[2021-01-08] MEDS: CHOLECALCIFEROL 25 MCG (1000 IU) TABLET PO SCH (09:05)
[2021-01-08] MEDS: SULFAMETHOX-TMP 800-160MG 1 EACH TAB PO SCH (09:05)
[2021-01-08] MEDS: LEVOTHYROXINE 50 MCG TAB PO SCH (09:05)
--- NOTE | 2021-01-08 11:09 | P.CONS ---
History of Present Illness - Reason for Consult Consult date: 01/07/21 Covid 19 and UTI Requesting physician: Marquita Bartholomew - Chief Complaint + Covid test at OR and increased work of breathing x 1 day - History of Present Illness History of present illness : Patient is 85-year-old female with a past medical history significant for COPD and dementia presented to [facility] yesterday [facility] work of breathing patient did tested positive for Covid at the [facility] and the patient symptoms started the day before presentation to the hospital patient did not have any acute symptoms on presentation to the hospital to the ER physician patient on presentation to the hospital was afebrile subsequently have low-grade fever 100.4 form height early this morning no fever since then patient is currently satting between 95 to 96% on room air patient did have a normal white count and no lymphopenia D-dimer was mild elevated 1.33 creatinine is normal AST is mild elevated at 49 patient also have a positive UA with large leukocyte esterase more than 22 WBC patient did have a chest x-ray bilateral lower lobe infiltrate and small effusion chronic granulomatous disease patient did have a CT angiogram of the chest motion artifact dilated thoracic esophagus patchy groundglass changes in lower lungs correlate for possible aspiration pneumonitis infectious was consulted for further management patient is currently breathing comfortably on room air and overall specifically denies having any chest pain shortness of breath or cough mention she is feeling fine no abdominal pain or any diarrhea per the nursing staff the patient daughter has called the hospital and has told the nursing staff she does not want the patient to be given remdesivir, most information has been obtained review the chart talking nursing staff the patient was evaluated good historian but did provide some limited history Review of system: Positive point has been mentioned in HPI complete review could not be obtained because of underlying mental status Past medical history : Reviewed, documented below Past surgical history : Reviewed, documented below Social history: Reviewed, documented below Medications: Reviewed, as documented below EXAMINATION: Vital sigans= Reviewed and documented below GENERAL DESCRIPTION: Elderly female lying in bed, no distress. No tachypnea or accessory muscle of respiration use. HEENT: Shows Pallor , no scleral icterus. Oral mucous membrane is dry. NECK: Trachea central, no thyromegaly. LUNGS: Unlabored breathing. Decreased breath sound at the base. No wheeze or crackle. HEART: S1, S2, regular rate and rhythm. ABDOMEN: Soft, no tenderness , guarding or rigidity EXTREMITIES: No edema of feet. SKIN: No rash, no masses palpable. NEUROLOGICAL: The patient is awake, alert, oriented x1, mood and affect normal. LABS AND RADIOLOGY: Reviewed results see below Assessment :1- Patient presented to hospital with positive Covid test from a [facility] and some increased work of breathing however the patient did not have significant hypoxemia currently 95 to 96% on room air chest x-ray and CT with mild groundglass opacity likely representing mild COVID-19 infection and treatment is mostly supportive as the patient daughter is refusing remdesivir 2-low-grade fever is significantly positive with a component of urinary tract infection from enteric gram-negative pathogen not entirely excluded 3-cefuroxime allergy possible GI side effect as the patient has tolerated Rocephin without any problem Plan: 1-Rocephin 1 g daily to continue 2-Lovenox zinc and ascorbic acid 3-no steroids as the patient is nonhypoxic We will follow on clinical condition and cultures to further adjust medication if needed Thank you for this consultation we will follow the patient along with you Past Medical History Past Medical History: Cancer, Heart Failure, COPD, Dementia, GERD/Reflux, Thyroid Disorder Additional Past Medical History / Comment(s): HIATAL HERNIA, breast ca, bone cancer, 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 Past Anesthesia/Blood Transfusion Reactions: No Reported Reaction Past Psychological History: No Psychological Hx Reported Smoking Status: Never smoker Past Alcohol Use History: None Reported Past Drug Use History: None Reported - Past Family History Father Additional Family Medical History / Comment(s): heart disease. Mother Additional Family Medical History / Comment(s): heart disease. Sister(s) Family Medical History: Cancer Additional Family Medical History / Comment(s): 3 SISTERS WITH BREAST CA Medications and Allergies Home Medications Medication Instructions Recorded Confirmed Type Levothyroxine Sodium [Synthroid] 50 mcg PO DAILY@0800 04/01/17 01/06/21 History Raloxifene [Evista] 60 mg PO HS@199904/01/17 01/06/21 History Memantine [Namenda] 5 mg PO BID@0811/02/19 01/06/21 History Multivitamins, Thera [Multivitamin 1 tab PO DAILY@79911/02/19 01/06/21 History (formulary)] Omeprazole 40 mg PO DAILY@79911/02/19 01/06/21 History atenoloL 25 mg PO DAILY@79911/02/19 01/06/21 History ALPRAZolam [Xanax] 0.25 mg PO HS@199907/05/20 01/06/21 History Albuterol Inhaler [Ventolin Hfa 2 puff INHALATION RT-Q4H PRN puff 07/08/20 01/06/21 Rx Inhaler] HYDROcodone/APAP 5-325MG [[place] 1 tab PO Q6HR PRN 3 Days #12 tab 07/08/20 01/06/21 Rx 5-325] Aspirin 325 mg PO DAILY@79901/06/21 01/06/21 History Ipratropium-Albuterol Nebulize 3 ml INHALATION RT-BID@799,199901/06/21 01/06/21 History [Duoneb 0.5 mg-3 mg/3 ml Soln] Sennosides-Docusate Sodium 1 tab PO DAILY@79901/06/21 01/06/21 History [Senokot-S] Tylenol Gelcaps (Unknown Strength) 2 cap PO BID@799,199901/06/21 01/06/21 History Tylenol Gelcaps (Unknown Strength) 2 cap PO Q8H PRN 01/06/21 01/06/21 History Allergies Allergy/AdvReac Type Severity Reaction Status Date / Time cefuroxime Allergy Intermediate Hives Verified 01/06/21 14:57 Physical Exam Vitals: Vital Signs Temp Pulse Pulse Resp BP BP Pulse Ox 01/07/21 10:04 98.3 F 91 16 96/59 93 L 01/07/21 08:35 95 16 01/07/21 07:50 92 18 127/64 95 01/07/21 07:31 98.5 F 93 16 85/51 93 L 01/07/21 05:37 100.0 F H 99 18 85/45 96 01/07/21 04:09 104 H 17 01/07/21 01:47 100.4 F H 104 H 17 112/59 91 L 01/07/21 00:00 99.3 F 98 18 118/64 94 L 01/06/21 23:00 94 18 123/67 95 01/06/21 21:40 87 18 106/63 96 01/06/21 21:00 92 18 102/59 95 01/06/21 20:20 84 18 95/52 95 01/06/21 20:05 86 18 105/86 96 01/06/21 18:00 92 18 99/51 95 01/06/21 17:55 84 18 80/46 96 01/06/21 17:00 90 18 115/66 95 01/06/21 16:00 90 18 114/71 95 01/06/21 15:00 90 18 102/56 95 01/06/21 14:58 18 01/06/21 13:40 97.3 F L 102 H 18 123/58 95 Intake and Output 01/06/21 01/07/21 01/07/21 22:59 06:59 14:59 Intake Total 236 Balance 236 Intake: Oral 236 Other: # Voids 1 1 Weight 49.895 kg 49.895 kg Results CBC & Chem 7: 01/07/21 07:02 01/07/21 07:02 Labs: Abnormal Lab Results - Last 24 Hours (Table) 01/06/21 01/06/21 01/06/21 Range/Units 14:57 14:57 14:57 RBC 3.78 L (3.80-5.40) m/uL Hgb (11.4-16.0) gm/dL Hct (34.0-46.0) % APTT 21.9 L (22.0-30.0) sec D-Dimer 1.33 H (<0.60) mg/L FEU Sodium 130 L (137-145) mmol/L Chloride (98-107) mmol/L Carbon Dioxide 21 L (22-30) mmol/L BUN 19 H (7-17) mg/dL Calcium 7.8 L (8.4-10.2) mg/dL AST 49 H (14-36) U/L Albumin 2.9 L (3.5-5.0) g/dL Urine Appearance (Clear) Urine Protein (Negative) Urine Blood (Negative) Ur Leukocyte Esterase (Negative) Urine RBC (0-5) /hpf Urine WBC (0-5) /hpf Urine WBC Clumps (None) /hpf Urine Bacteria (None) /hpf Urine Mucus (None) /hpf Coronavirus (PCR) (Not Detectd) 01/06/21 01/06/21 01/07/21 Range/Units 14:57 14:57 07:02 RBC 3.54 L (3.80-5.40) m/uL Hgb 10.8 L (11.4-16.0) gm/dL Hct 33.3 L (34.0-46.0) % APTT (22.0-30.0) sec D-Dimer (<0.60) mg/L FEU Sodium (137-145) mmol/L Chloride (98-107) mmol/L Carbon Dioxide (22-30) mmol/L BUN (7-17) mg/dL Calcium (8.4-10.2) mg/dL AST (14-36) U/L Albumin (3.5-5.0) g/dL Urine Appearance Turbid H (Clear) Urine Protein 2+ H (Negative) Urine Blood Small H (Negative) Ur Leukocyte Esterase Large H (Negative) Urine RBC 9 H (0-5) /hpf Urine WBC >182 H (0-5) /hpf Urine WBC Clumps Many H (None) /hpf Urine Bacteria Moderate H (None) /hpf Urine Mucus Rare H (None) /hpf Coronavirus (PCR) Detected A (Not Detectd) 01/07/21 Range/Units 07:02 RBC (3.80-5.40) m/uL Hgb (11.4-16.0) gm/dL Hct (34.0-46.0) % APTT (22.0-30.0) sec D-Dimer (<0.60) mg/L FEU Sodium 135 L (137-145) mmol/L Chloride 109 H (98-107) mmol/L Carbon Dioxide 20 L (22-30) mmol/L BUN (7-17) mg/dL Calcium 7.5 L (8.4-10.2) mg/dL AST (14-36) U/L Albumin (3.5-5.0) g/dL Urine Appearance (Clear) Urine Protein (Negative) Urine Blood (Negative) Ur Leukocyte Esterase (Negative) Urine RBC (0-5) /hpf Urine WBC (0-5) /hpf Urine WBC Clumps (None) /hpf Urine Bacteria (None) /hpf Urine Mucus (None) /hpf Coronavirus (PCR) (Not Detectd) Microbiology - Last 24 Hours (Table) 01/06/21 14:57 Urine Culture - Preliminary Urine,Voided
--- NOTE | 2021-01-08 13:41 | P.CRDCN ---
History of Present Illness Consult date: 01/08/21 Reason for Consult (text): Possible heart block Chief complaint: EKG changes History of present illness: This is Murray Beatty NP dictating a consult on this patient on behalf of Dr. Craig. HPI: Patient is an 85-year-old female who initially presented to the hospital w ith a UTI, and COVID-19 positive. She has a past medical history significant for COPD and dementia. Cardiology was consulted to due to a aberrant finding of possible heart block on telemetry strips that were printed for the patient. EKG was reviewed and was found to be normal. Patient is positive COVID-19, and due to the COVID-19 pandemic the patient was not physically seen at this time. An extensive chart review was completed. REVIEW OF LABS, ECG & MEDICAL DATA: LABS: White count 7.5, hemoglobin 10.8, PT 9.8, INR 0.9, APTT 21.9, d-dimer 1.33, sodium 135, potassium 3.8, chloride 109, BUN 14, creatinine 0.88, calcium 7.5 EKG: Underlying normal sinus rhythm with sinus arrhythmia IMAGING: Chest x-ray dated 01/07/2021 is significant for pneumonia; chest CTA dated 01/06/2021-no definite pulmonary embolus, CAD with extensive LAD and circumflex coronary artery calcifications VITALS: Temp 98.8, pulse rate 92, respirations 18, blood pressure 94/64, O2 saturation 94% on room air IMPRESSION/PLAN: 1. Blocked PACs-evaluation of the telemetry strips with the concerning areas demonstrate blocked PACs, not heart block. Recommend patient continues on telemetry. Thank you for the consult and allowing us to participate in the care of this patient. 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 Past Anesthesia/Blood Transfusion Reactions: No Reported Reaction Past Psychological History: No Psychological Hx Reported Smoking Status: Never smoker Past Alcohol Use History: None Reported Past Drug Use History: None Reported - Past Family History Father Additional Family Medical History / Comment(s): heart disease. Mother Additional Family Medical History / Comment(s): heart disease. Sister(s) Family Medical History: Cancer Additional Family Medical History / Comment(s): 3 SISTERS WITH BREAST CA Medications and Allergies Home Medications Medication Instructions Recorded Confirmed Type Levothyroxine Sodium [Synthroid] 50 mcg PO DAILY@0800 04/01/17 01/06/21 History Raloxifene [Evista] 60 mg PO HS@199904/01/17 01/06/21 History Memantine [Namenda] 5 mg PO BID@08,199911/02/19 01/06/21 History Multivitamins, Thera [Multivitamin 1 tab PO DAILY@79911/02/19 01/06/21 History (formulary)] Omeprazole 40 mg PO DAILY@79911/02/19 01/06/21 History atenoloL 25 mg PO DAILY@0800 11/02/19 01/06/21 History ALPRAZolam [Xanax] 0.25 mg PO HS@199907/05/20 01/06/21 History Albuterol Inhaler [Ventolin Hfa 2 puff INHALATION RT-Q4H PRN puff 07/08/20 01/06/21 Rx Inhaler] HYDROcodone/APAP 5-325MG [[place] 1 tab PO Q6HR PRN 3 Days #12 tab 07/08/20 01/06/21 Rx 5-325] Aspirin 325 mg PO DAILY@0800 01/06/21 01/06/21 History Ipratropium-Albuterol Nebulize 3 ml INHALATION RT-BID@799,199901/06/21 01/06/21 History [Duoneb 0.5 mg-3 mg/3 ml Soln] Sennosides-Docusate Sodium 1 tab PO DAILY@0801/06/21 01/06/21 History [Senokot-S] Tylenol Gelcaps (Unknown Strength) 2 cap PO BID@08,199901/06/21 01/06/21 History Tylenol Gelcaps (Unknown Strength) 2 cap PO Q8H PRN 01/06/21 01/06/21 History Allergies Allergy/AdvReac Type Severity Reaction Status Date / Time cefuroxime Allergy Intermediate Hives Verified 01/06/21 14:57 Physical Exam Vitals: Vital Signs Temp Pulse Resp BP Pulse Ox 01/08/21 10:14 98.8 F 92 18 94/64 94 L 01/08/21 05:18 97.3 F L 82 13 99/59 94 L 01/08/21 02:15 97.8 F 84 13 94/57 94 L 01/07/21 22:09 98.2 F 87 15 103/52 93 L 01/07/21 19:25 87 15 01/07/21 17:28 97.7 F 81 16 125/72 96 01/07/21 14:00 97.7 F 83 16 102/61 95 Intake and Output 01/07/21 01/08/21 01/08/21 22:59 06:59 14:59 Intake Total 118 Output Total 600 450 Balance -482 -450 Intake: Oral 118 Output: Urine 600 450 Other: Voiding Method Incontinent External Catheter Results 01/07/21 07:02 01/07/21 07:02 Current Medications Generic Name Dose Route Start Last Admin Trade Name Freq PRN Reason Stop Dose Admin Acetaminophen 650 mg 01/07/21 02:55 01/07/21 03:09 Acetaminophen Tab 325 Mg Tab PO 650 mg Q6HR PRN Administration Fever and/ or Pain Hydrocodone Bitart/Acetaminophen 1 each 01/06/21 17:24 Hydrocodone/Apap 5-325mg 1 Each Tab PO Q6HR PRN Pain Albuterol Sulfate 2 puff 01/06/21 17:24 Albuterol Hfa Inhaler INHALATION RT-Q4H PRN Shortness Of Breath Albuterol Sulfate 2 puff 01/06/21 20:00 01/08/21 11:28 Albuterol Hfa Inhaler INHALATION 2 puff RT-QID GENA Administration Alprazolam 0.25 mg 01/06/21 20:00 01/07/21 21:12 Alprazolam 0.25 Mg Tab PO 0.25 mg HS@2000 GENA Administration Ascorbic Acid 500 mg 01/07/21 09:00 01/08/21 09:05 Ascorbic Acid 500 Mg Tab PO 500 mg DAILY GENA Administration Aspirin 325 mg 01/07/21 08:00 01/08/21 09:04 Aspirin 325 Mg Tab PO 325 mg DAILY@0800 GENA Administration Atenolol 25 mg 01/07/21 08:00 01/08/21 09:05 Atenolol 25 Mg Tab PO Not Given DAILY@0800 GENA Cholecalciferol 25 mcg 01/06/21 21:00 01/08/21 09:05 Cholecalciferol 25 Mcg (1000 Iu) Tablet PO 25 mcg DAILY GENA Administration Enoxaparin Sodium 30 mg 01/06/21 21:00 01/08/21 09:04 Enoxaparin 30 Mg/0.3 Ml Syringe SQ 30 mg DAILY GENA Administration Ceftriaxone Sodium 1 gm/ 50 mls @ 100 mls/hr 01/07/21 09:00 01/08/21 09:04 Sodium Chloride IVPB 100 mls/hr Q24HR GENA Administration Sodium Chloride 1,000 mls @ 100 mls/hr 01/07/21 21:00 01/08/21 09:03 Saline 0.9% IV 100 mls/hr .Q10H GENA Administration Levothyroxine Sodium 50 mcg 01/07/21 08:00 01/08/21 09:05 Levothyroxine 50 Mcg Tab PO 50 mcg DAILY@0800 GNEA Administration Memantine 5 mg 01/06/21 20:00 01/08/21 09:04 Memantine 5 Mg Tab PO 5 mg BID@799,1999 [facility] Administration Multivitamins 1 each 01/07/21 08:00 01/08/21 09:05 Multivitamins, Thera 1 Each Tab PO 1 each DAILY@0800 GENA Administration Naloxone HCl 0.2 mg 01/06/21 17:20 Naloxone 0.4 Mg/Ml 1 Ml Vial IV Q2M PRN Opioid Reversal Pantoprazole Sodium 40 mg 01/07/21 08:00 01/08/21 09:05 Pantoprazole 40 Mg Tablet PO 40 mg DAILY@0800 GENA Administration Raloxifene HCl 60 mg 01/06/21 20:00 01/07/21 21:58 Raloxifene 60 Mg Tab PO 60 mg HS@1999 [facility] Administration Senna/Docusate Sodium 1 each 01/07/21 08:00 01/08/21 09:04 Sennosides-Docusate Sodium 1 Each Tab PO 1 each DAILY@0800 GENA Administration Tiotropium [place] 2 puff 01/07/21 08:00 01/08/21 08:20 Tiotropium 2.5 Mcg Inhaler INHALATION 2 puff RT-DAILY GENA Administration Zinc Sulfate 220 mg 01/06/21 21:00 01/08/21 09:04 Zinc Sulfate 220 Mg Cap PO 220 mg DAILY GENA Administration Intake and Output 01/07/21 01/08/21 01/08/21 22:59 06:59 14:59 Intake Total 118 Output Total 600 450 Balance -482 -450 Intake: Oral 118 Output: Urine 600 450 Other: Voiding Method Incontinent External Catheter 01/07/21 07:02 01/07/21 07:02
[2021-01-08] MEDS: RALOXIFENE 60 MG TAB PO SCH (19:35)
[2021-01-08] MEDS: ALPRAZolam 0.25 MG TAB PO SCH (19:35)
--- NOTE | 2021-01-08 21:05 | PN ---
PROGRESS NOTE DATE OF SERVICE: 01/08/2021 I am covering for Dr. Zhong. This 85-year-old woman with a past medical history of multiple medical problems admitted with acute Covid19 infection. Patient also had relative hypotension. Cardiology has seen the patient. The patient also received fluid boluses. The patient apparently had blocked PACs from the telemetry strip. PAST MEDICAL HISTORY: Reviewed. REVIEW OF SYSTEMS: Cardiovascular: No angina. Respiration: As mentioned earlier. Patient has incessant cough. GI as mentioned earlier. : No dysuria. Nervous system: Diffusely weak. CURRENT MEDICATIONS: Reviewed and include: Tylenol, [place], Ventolin, Xanax, vitamin C, Tenormin, Rocephin. PHYSICAL EXAMINATION: Patient is alert and oriented x2. Pulse 90, blood pressure 89/58, respiration 18, temperature 98.4, pulse ox 94% on room air. HEENT: Conjunctivae normal. Neck: No VD. Cardiovascular: S1, S2 muffled. Respiratory: Breath sounds diminished at the bases. A few scattered rhonchi. Abdomen: Soft, nontender. Legs are no edema. No swelling. Nervous system: No focal deficits. LABS: UA noted. Cultures negative. Covid 19 positive. ASSESSMENT: 1. Acute Covid 19 infection with acute bilateral pneumonia with severe sepsis and hypotension and shock, present on admission. 2. Acute urinary tract infection present on admission with sepsis. 3. Bradycardia droplets and possibly blocked PACs per Cardiology. 4. Change in mental status, acute on chronic metabolic encephalopathy. 5. History of chronic obstructive pulmonary disease. 6. History of congestive heart failure. 7. History of dementia. 8. Gastroesophageal reflux disease. 9. Hypothyroidism. History of hiatal hernia. 10.History of right mastectomy. 11.History of right ankle fracture. 12.Severe protein calorie malnutrition BMI of 15.9. 13.FULL CODE. RECOMMENDATIONS AND DISCUSSION: Continue current medications, continue the symptomatic treatment. Continue the antibiotics. Continue bronchodilators. Continue the rest of medications. Prognosis guarded. I would also recommend p.r.n. boluses. Overall prognosis guarded because of multiple complex medical issues. 8:00 am cortisol requested and continue to monitor. Further recommendations to follow. MMODL / IJN: [id number] /
--- NOTE | 2021-01-09 03:07 | PN ---
PROGRESS NOTE DATE OF SERVICE: 01/08/2021 REASON FOR FOLLOWUP: 1. UTI. 2. Covid 19 pneumonia. INTERVAL HISTORY: Patient is afebrile. The patient is currently breathing comfortably on room air. The patient denies having chest pain. She did have a cough, not bringing any sputum. No abdominal pain. No diarrhea. PHYSICAL EXAMINATION: Blood pressure 112/61 with a pulse of 98, temperature 98.2. She is 97% on room air. General description is an elderly female lying in bed in no distress. Respiratory system: Unlabored breathing, decreased intensity of breath sounds. No wheeze. Heart S1, S2. Regular rate and rhythm. Abdomen soft, no tenderness. LABS: No new labs have been obtained today. DIAGNOSTIC IMPRESSION AND PLAN: 1. Patient with fever, possibly related to Covid 19 pneumonia in this patient currently on room air and will not qualify for Remdesivir, she could have been for monoclonal antibodies. However, with being admitted to the hospital currently not indicated. The patient to continue with the Lovenox, zinc and ascorbic acid. 2. Patient with urinary tract infection covered with Rocephin to continue while waiting for the culture to finalize. MMODL / IJN: [id number] /
[2021-01-09] MEDS: SODIUM CHLORIDE 0.9% 1,000 ML IV SCH ×3 (07:04→23:10)
[2021-01-09] MEDS: ALBUTEROL HFA INHALER INHALATION SCH ×4 (07:44→20:04)
[2021-01-09] MEDS: TIOTROPIUM 2.5 MCG INHALER INHALATION SCH (07:44)
[2021-01-09] MEDS: SENNOSIDES-DOCUSATE SODIUM 1 EACH TAB PO SCH (08:11)
[2021-01-09] MEDS: ZINC SULFATE 220 MG CAP PO SCH (08:12)
[2021-01-09] MEDS: ASPIRIN 325 MG TAB PO SCH (08:12)
[2021-01-09] MEDS: CHOLECALCIFEROL 25 MCG (1000 IU) TABLET PO SCH (08:12)
[2021-01-09] MEDS: PANTOPRAZOLE 40 MG TABLET PO SCH (08:12)
[2021-01-09] MEDS: MULTIVITAMINS, THERA 1 EACH TAB PO SCH (08:12)
[2021-01-09] MEDS: LEVOTHYROXINE 50 MCG TAB PO SCH (08:12)
[2021-01-09] MEDS: ASCORBIC ACID 500 MG TAB PO SCH (08:12)
[2021-01-09] MEDS: MEMANTINE 5 MG TAB PO SCH ×2 (08:12→20:09)
[2021-01-09] MEDS: atenoloL 25 MG TAB PO SCH (08:12)
[2021-01-09] MEDS: ENOXAPARIN 30 MG/0.3 ML SYRINGE SQ SCH (08:13)
--- NOTE | 2021-01-09 11:09 | P.CNPUL ---
History of Present Illness Consult date: 01/09/21 Reason for consult: dyspnea, other Chief complaint: COVID-19 infection History of present illness: This is a 85-year-old female with advanced dementia past medical history significant for COPD and dementia presented to hospital yesterday afternoon from the care home for increased work of breathing patient did tested positive for Covid at the care home and the patient symptoms started the day before presentation to the hospital patient did not have any acute symptoms on presentation to the hospital to the ER physician patient on presentation to the hospital was afebrile subsequently have low-grade fever 100.4, patient remains 95 to 96% on room air patient did have a normal white count and no lymphopenia D-dimer was mild elevated 1.33 creatinine is normal AST is mild elevated at 49 patient also have a positive UA with large leukocyte esterase more than 22 WBC her admit chest x-ray bilateral lower lobe infiltrate and small effusion chronic granulomatous disease and CT angiogram of the chest motion artifact dilated thoracic esophagus patchy groundglass changes in lower lungs correlate for possible aspiration pneumonitis infectious was consulted for further management. A follow-up chest x-ray on the January 07 positive for bilateral patchy interstitial infiltrate likely COVID-19 pneumonia Patient is currently breathing comfortably on room air and overall specifically denies having any chest pain shortness of breath or cough mention she is feeling fine no abdominal pain or any diarrhea per the nursing staff the patient daughter has called the hospital and has told the nursing staff she does not want the patient to be given remdesivir, most information has been obtained review the chart talking nursing staff the patient was evaluated good historian but did provide some limited history Review of Systems ROS unobtainable: due to mental status Past Medical History Past Medical History: Cancer, Heart Failure, COPD, Dementia, GERD/Reflux, Thyroid Disorder Additional Past Medical History / Comment(s): HIATAL HERNIA, breast ca, bone cancer, 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 Past Anesthesia/Blood Transfusion Reactions: No Reported Reaction Past Psychological History: No Psychological Hx Reported Smoking Status: Never smoker Past Alcohol Use History: None Reported Past Drug Use History: None Reported - Past Family History Father Additional Family Medical History / Comment(s): heart disease. Mother Additional Family Medical History / Comment(s): heart disease. Sister(s) Family Medical History: Cancer Additional Family Medical History / Comment(s): 3 SISTERS WITH BREAST CA Medications and Allergies Home Medications Medication Instructions Recorded Confirmed Type Levothyroxine Sodium [Synthroid] 50 mcg PO DAILY@0800 04/01/17 01/06/21 History Raloxifene [Evista] 60 mg PO HS@199904/01/17 01/06/21 History Memantine [Namenda] 5 mg PO BID@799,199911/02/19 01/06/21 History Multivitamins, Thera [Multivitamin 1 tab PO DAILY@79911/02/19 01/06/21 History (formulary)] Omeprazole 40 mg PO DAILY@79911/02/19 01/06/21 History atenoloL 25 mg PO DAILY@79911/02/19 01/06/21 History ALPRAZolam [Xanax] 0.25 mg PO HS@199907/05/20 01/06/21 History Albuterol Inhaler [Ventolin Hfa 2 puff INHALATION RT-Q4H PRN puff 07/08/20 01/06/21 Rx Inhaler] HYDROcodone/APAP 5-325MG [[place] 1 tab PO Q6HR PRN 3 Days #12 tab 07/08/20 01/06/21 Rx 5-325] Aspirin 325 mg PO DAILY@79901/06/21 01/06/21 History Ipratropium-Albuterol Nebulize 3 ml INHALATION RT-BID@799,199901/06/21 01/06/21 History [Duoneb 0.5 mg-3 mg/3 ml Soln] Sennosides-Docusate Sodium 1 tab PO DAILY@0801/06/21 01/06/21 History [Senokot-S] Tylenol Gelcaps (Unknown Strength) 2 cap PO BID@799,199901/06/21 01/06/21 History Tylenol Gelcaps (Unknown Strength) 2 cap PO Q8H PRN 01/06/21 01/06/21 History Allergies Allergy/AdvReac Type Severity Reaction Status Date / Time cefuroxime Allergy Intermediate Hives Verified 01/06/21 14:57 Physical Exam Vitals: Vital Signs Temp Pulse Resp BP Pulse Ox 01/09/21 09:28 97.3 F L 99 18 92/56 94 L 01/09/21 07:30 18 01/09/21 05:41 97.7 F 96 16 118/78 93 L 01/09/21 01:55 97.6 F 88 90/56 93 L 01/08/21 22:20 98.2 F 98 112/61 97 01/08/21 19:40 91 18 01/08/21 18:39 98.5 F 91 18 99/63 95 01/08/21 15:14 98.4 F 90 18 89/58 94 L Intake and Output 01/08/21 01/09/21 01/09/21 22:59 06:59 14:59 Output Total 400 240 Balance -400 -240 Output: Urine 400 240 Other: Voiding Method Incontinent Incontinent External Catheter External Catheter # Voids 3 # Bowel Movements 1 - Constitutional General appearance: average body habitus, disheveled - EENT Eyes: EOMI, PERRLA Ears: bilateral: normal - Neck Carotids: bilateral: upstroke normal Thyroid: bilateral: normal size - Respiratory Respiratory: bilateral: CTA - Cardiovascular Rhythm: regular Heart sounds: normal: S1, S2 - Gastrointestinal General gastrointestinal: normal bowel sounds - Neurologic Neurologic: CNII-XII intact - Musculoskeletal Musculoskeletal: generalized weakness, strength equal bilaterally Results - Laboratory Findings CBC and BMP: 01/07/21 07:02 01/07/21 07:02 PT/INR, D-dimer PT 9.8 sec (9.0-12.0) 01/06/21 14:57 INR 0.9 (<1.2) 01/06/21 14:57 D-Dimer 1.33 mg/L FEU (<0.60) H 01/06/21 14:57 Abnormal lab findings: Abnormal Labs 01/06/21 01/06/21 01/06/21 14:57 14:57 14:57 RBC 3.78 L Hgb Hct APTT 21.9 L D-Dimer 1.33 H Sodium 130 L Chloride Carbon Dioxide 21 L BUN 19 H Calcium 7.8 L AST 49 H Albumin 2.9 L Urine Appearance Urine Protein Urine Blood Ur Leukocyte Esterase Urine RBC Urine WBC Urine WBC Clumps Urine Bacteria Urine Mucus Coronavirus (PCR) 01/06/21 01/06/21 01/07/21 14:57 14:57 07:02 RBC 3.54 L Hgb 10.8 L Hct 33.3 L APTT D-Dimer Sodium Chloride Carbon Dioxide BUN Calcium AST Albumin Urine Appearance Turbid H Urine Protein 2+ H Urine Blood Small H Ur Leukocyte Esterase Large H Urine RBC 9 H Urine WBC >182 H Urine WBC Clumps Many H Urine Bacteria Moderate H Urine Mucus Rare H Coronavirus (PCR) Detected A 01/07/21 07:02 RBC Hgb Hct APTT D-Dimer Sodium 135 L Chloride 109 H Carbon Dioxide 20 L BUN Calcium 7.5 L AST Albumin Urine Appearance Urine Protein Urine Blood Ur Leukocyte Esterase Urine RBC Urine WBC Urine WBC Clumps Urine Bacteria Urine Mucus Coronavirus (PCR) - Diagnostic Findings Chest x-ray: report reviewed, image reviewed CT scan - chest: report reviewed, image reviewed (Finding as noted above) Assessment and Plan Assessment: COVID-19 pneumonia without hypoxia and desaturation Occult intermittent aspiration cannot be excluded UTI Sinus bradycardia Metabolic encephalopathy likely related to UTI and sepsis due to UTI Hypothyroidism GERD Baseline COPD not in exacerbation Plan: Continue deep breathing sense incentive spirometry Recommend Decadron for 10 days Increase activity as tolerated Antibiotics for UTI, ID service has been following
[2021-01-09 11:20] LABS: HCT 37.7 % (37.2-46.3); HGB 11.7 g/dL (12.0-15.0); MCH 29.5 pg (27.0-32.0); MCV 95.2 fL (80.0-97.0); Mean Platelet Volume 9.5 fL (9.5-12.2); Platelet Count 285 X 10*3/uL (140-440); RBC 3.96 X 10*6/uL (4.10-5.20); RDW 15.3 % (11.5-14.5); WBC 7.66 X 10*3/uL (4.50-10.00)
[2021-01-09 11:55] LABS: ALT 13 U/L (8-44); AST 34 U/L (13-35); African American GFR (CKD) 62.8 (60.0-200.0); Albumin 2.9 g/dL (3.8-4.9); Albumin/Globulin Ratio 0.93 (1.60-3.17); Alkaline Phosphatase 50 U/L (41-126); BUN/Creat Ratio 13.54 Ratio (12.00-20.00); Blood Urea Nitrogen 12.8 mg/dL (9.0-27.0); Calcium 7.9 mg/dL (8.7-10.3); Carbon Dioxide 17.2 mmol/L (21.6-31.8); Chloride 112 mmol/L (96-109); Globulin 3.2 g/dL (1.6-3.3); Glucose 72 mg/dL (70-110); Non-African American GFR(CKD) 54.2 (60.0-200.0); Sodium 140 mmol/L (135-145); Total Bilirubin <0.20 mg/dL (0.30-1.20); Total Protein 6.1 g/dL (6.2-8.2)
[2021-01-09 12:26] LABS: Crenated RBC 2+
--- NOTE | 2021-01-09 12:33 | ECHOF ---
Referral Reason:possible heart block MEASUREMENTS -------- HEIGHT: 162.6 cm WEIGHT: 49.9 kg BP: RVIDd: 2.2 cm (< 3.3) IVSd: 1.4 cm (0.6 - 1.1) LVIDd: 3.0 cm (3.9 - 5.3) LVPWd: 1.2 cm (0.6 - 1.1) IVSs: 1.7 cm LVIDs: 2.1 cm LVPWs: 1.5 cm LAESV Index (A-L): 20.19 ml/m Ao Diam: 3.5 cm (2.0 - 3.7) AV Cusp: 2.5 cm (1.5 - 2.6) LA Diam: 3.1 cm (2.7 - 3.8) MV EXCURSION: 12.148 mm (> 18.000) MV EF SLOPE: 40 mm/s (70 - 150) EPSS: 1.5 cm MV E Chin: 1.06 m/s MV DecT: 304 ms MV A Chin: 1.50 m/s MV E/A Ratio: 0.71 AR PHT: 439 ms RAP: 5.00 mmHg RVSP: 34.16 mmHg FINDINGS -------- This was a technically good study. The left ventricular size is normal. There is mild concentric left ventricular hypertrophy. Overa ll left ventricular systolic function is normal with, an EF between 55 - 60 %. Normal LAP Grade 1 D iastolic Dysfunction. The right ventricle is normal in size. The left atrial size is normal. Normal LA size by volume 22+/-6 ml/m2. The right atrial size is normal. Aortic valve is trileaflet and is mildly thickened. There is mild aortic regurgitation. The mitral valve is normal. The mitral valve leaflets are mildly thickened. Mild mitral annular c alcification present. Moderate mitral regurgitation is present. The peak and mean MV gradients a re 14.75mmHg 5.95mmHg as measured by doppler. Mild mitral stenosis. The tricuspid valve appears structurally normal. Mild tricuspid regurgitation present. Right vent ricular systolic pressure is normal at < 35 mmHg. There is no pulmonic regurgitation present. The aortic root size is normal. Normal inferior vena cava with normal inspiratory collapse consistent with estimated right atrial pre ssure of 5 mmHg. There is no pericardial effusion. CONCLUSIONS -------- 1. The left ventricular size is normal. 2. There is mild concentric left ventricular hypertrophy. 3. Overall left ventricular systolic function is normal with, an EF between 55 - 60 %. 4. Normal LAP Grade 1 Diastolic Dysfunction. 5. Aortic valve is trileaflet and is mildly thickened. 6. There is mild aortic regurgitation. 7. The mitral valve leaflets are mildly thickened. 8. Mild mitral annular calcification present. 9. Moderate mitral regurgitation is present. 10. The peak and mean MV gradients are 14.75mmHg 5.95mmHg as measured by doppler. 11. Mild mitral stenosis. 12. Mild tricuspid regurgitation present. 13. There is no pericardial effusion. [employer] PHOTO INSPECTOR: Sally Rodgers RDCS
[2021-01-09] MEDS: BENZONATATE 100 MG CAP PO SCH ×3 (12:42→21:49)
[2021-01-09 14:48] LABS: Metamyelocytes % 3 % (0-0); Monocytes # (M) 0.46 (0.20-1.00); Myelocytes % 4 % (0-0); Neutrophils # (M) 4.83 (2.00-8.90); Neutrophils % (M) 63 %; Promyelocytes % 2 %
[2021-01-09 14:49] LABS: Basophils # (M) 0.15 (0.00-0.10); Eosinophils # (M) 0.23 (0.04-0.35)
--- NOTE | 2021-01-09 19:05 | PN ---
PROGRESS NOTE I am covering for Farheen. DATE OF SERVICE: 01/09/2021 This 85 woman who was admitted with acute COVID-19 infection and acute bilateral pneumonia also had acute UTI. The patient is being closely monitored. No chest pain. No palpitations. No fever. PHYSICAL EXAMINATION: Alert and oriented x3. Pulse is 95, blood pressure 93/57, respiration 18, temperature 98 degrees, pulse ox 96% on room air. HEENT: Conjunctivae normal. NECK: No jugular venous distention. CARDIOVASCULAR: S1, S2 muffled. RESPIRATION: Breath sounds diminished at the bases. A few scattered rhonchi. ABDOMEN: Soft. LEGS: No edema. No swelling. NERVOUS SYSTEM: No focal deficit. LAB STUDIES: WBC 7.7, hemoglobin 11.7, sodium 142, potassium 4. ASSESSMENT: 1. Acute COVID-19 infection with acute bilateral pneumonia with severe sepsis and hypotension and shock, present on admission. 2. Acute urinary tract infection, present on admission with sepsis. 3. Bradycardia with dropped PACs and blocked PACs per Cardiology. 4. Change in mental status, acute on chronic metabolic encephalopathy. 5. History of chronic obstructive pulmonary disease. 6. History of congestive heart failure. 7. Gait dysfunction. 8. History of dementia. 9. Gastroesophageal reflux disease. 10.Hypothyroidism. 11.History of hiatal hernia. 12.History of right mastectomy. 13.History of right ankle fracture. 14.Severe protein-calorie malnutrition with body mass index of 15.9. 15.FULL CODE. RECOMMENDATIONS AND DISCUSSION: I recommend to continue current medications, continue with symptomatic treatment. Continue with the antibiotics. Cultures are negative so far. Closely follow with Infectious Disease and Cardiology. Prognosis guarded. Further recommendations to follow. MMODL / IJN: [id number] /
[2021-01-09] MEDS: ALPRAZolam 0.25 MG TAB PO SCH (20:09)
[2021-01-09] MEDS: RALOXIFENE 60 MG TAB PO SCH (20:10)
[2021-01-10] MEDS: ASCORBIC ACID 500 MG TAB PO SCH (09:14)
[2021-01-10] MEDS: ENOXAPARIN 30 MG/0.3 ML SYRINGE SQ SCH (09:14)
[2021-01-10] MEDS: ASPIRIN 325 MG TAB PO SCH (09:14)
[2021-01-10] MEDS: MULTIVITAMINS, THERA 1 EACH TAB PO SCH (09:15)
[2021-01-10] MEDS: LEVOTHYROXINE 50 MCG TAB PO SCH (09:15)
[2021-01-10] MEDS: PANTOPRAZOLE 40 MG TABLET PO SCH (09:15)
[2021-01-10] MEDS: SENNOSIDES-DOCUSATE SODIUM 1 EACH TAB PO SCH (09:15)
[2021-01-10] MEDS: atenoloL 25 MG TAB PO SCH (09:15)
[2021-01-10] MEDS: ZINC SULFATE 220 MG CAP PO SCH (09:15)
[2021-01-10] MEDS: BENZONATATE 100 MG CAP PO SCH ×3 (09:15→21:58)
[2021-01-10] MEDS: MEMANTINE 5 MG TAB PO SCH ×2 (09:15→20:45)
[2021-01-10] MEDS: SODIUM CHLORIDE 0.9% 1,000 ML IV SCH ×2 (09:16→19:49)
[2021-01-10] MEDS: CHOLECALCIFEROL 25 MCG (1000 IU) TABLET PO SCH (09:16)
[2021-01-10] MEDS: ALBUTEROL HFA INHALER INHALATION SCH ×4 (09:23→20:19)
[2021-01-10] MEDS: TIOTROPIUM 2.5 MCG INHALER INHALATION SCH (09:23)
--- NOTE | 2021-01-10 13:17 | PN ---
PROGRESS NOTE DATE OF SERVICE: 01/10/2021 REASON FOR FOLLOWUP: UTI and COVID-19 pneumonia. INTERVAL HISTORY: The patient is afebrile. The patient is currently breathing comfortably. Remains on room air. The patient denies having any chest pain. Cough, but no worsening. No abdominal pain or diarrhea. PHYSICAL EXAMINATION: Blood pressure is 188/62 with a pulse of 97, temperature 96.5. She is 94% on room air. General description is an elderly female up in the room in no distress. RESPIRATORY SYSTEM: Unlabored breathing. Decreased intensity of breath sounds. No wheeze. HEART: S1, S2. Regular rate and rhythm. ABDOMEN: Soft. No tenderness. LABS: Hemoglobin is 11.7, white count 11.6. Creatinine 0.9. DIAGNOSTIC IMPRESSION AND PLAN: 1. Patient with a fever concerning for a urinary tract infection and COVID-19 pneumonia. This patient has not been hypoxic. Daughter has refused remdesivir. The patient is currently on Lovenox, zinc and ascorbic acid; to continue. 2. Positive UA concerning for urinary tract infection. Urine culture has been negative. Antibiotic can be safely discontinued on discharge. MMODL / IJN: [id number] /
--- NOTE | 2021-01-10 13:36 | P.PN ---
Subjective Progress Note Date: 01/10/21 Principal diagnosis: COVID-19 pneumonia without hypoxia and desaturation but due to symptoms of intermittent dry nonproductive cough Occult intermittent aspiration cannot be excluded but however no current/overt aspiration noted UTI Sinus bradycardia Metabolic encephalopathy likely related to UTI and sepsis due to UTI Hypothyroidism GERD Baseline COPD not in exacerbation 01/10/2021, patient seen eval examined during the rounds labs reviewed medications reviewed care plan discussed, patient is awake and alert, remains on room air, oxygen saturation is stable however dry nonproductive cough is present, radiographic studies are consistent with covert pneumonia, patient remains on bronchodilators as needed as well as [id number],, also on Rocephin for UTI, would recommend to start Decadron 10 day course This is a 85-year-old female with advanced dementia past medical history significant for COPD and dementia presented to hospital [facility] breathing patient did tested positive for Covid at the [facility] and the patient symptoms started the day before presentation to the hospital patient did not have any acute symptoms on presentation to the hospital to the ER physician patient on presentation to the hospital was afebrile subsequently have low-grade fever 100.4, patient remains 95 to 96% on room air patient did have a normal white count and no lymphopenia D-dimer was mild elevated 1.33 creatinine is normal AST is mild elevated at 49 patient also have a positive UA with large leukocyte esterase more than 22 WBC her admit chest x-ray bilateral lower lobe infiltrate and small effusion chronic granulomatous disease and CT angiogram of the chest motion artifact dilated thoracic esophagus patchy groundglass changes in lower lungs correlate for possible aspiration pneumonitis infectious was consulted for further management. A follow-up chest x-ray on the January 07 positive for bilateral patchy interstitial infiltrate likely COVID-19 pneumonia Patient is currently breathing comfortably on room air and overall specifically denies having any chest pain shortness of breath or cough mention she is feeling fine no abdominal pain or any diarrhea per the nursing staff the patient daught er has called the hospital and has told the nursing staff she does not want the patient to be given remdesivir, most information has been obtained review the chart talking nursing staff the patient was evaluated good historian but did provide some limited history Objective - Vital Signs Vital signs: Vital Signs Temp 96.5 F L 01/10/21 10:00 Pulse 97 01/10/21 10:00 Resp 17 01/10/21 10:00 BP 88/62 01/10/21 10:00 Pulse Ox 94 L 01/10/21 10:58 Intake & Output 01/09/21 01/10/21 01/10/21 18:59 06:59 18:59 Intake Total 100 280 Output Total 1200 Balance 100 -920 Intake: Oral 100 280 Output: Urine 1200 Other: Voiding Method Incontinent Incontinent External Catheter External Catheter # Voids 2 2 # Bowel Movements 1 - Exam - Constitutional General appearance: average body habitus, disheveled - EENT Eyes: EOMI, PERRLA Ears: bilateral: normal - Neck Carotids: bilateral: upstroke normal Thyroid: bilateral: normal size - Respiratory Respiratory: bilateral: CTA - Cardiovascular Rhythm: regular Heart sounds: normal: S1, S2 - Gastrointestinal General gastrointestinal: normal bowel sounds - Neurologic Neurologic: CNII-XII intact - Musculoskeletal Musculoskeletal: generalized weakness, strength equal bilaterally - Labs CBC & Chem 7: 01/09/21 06:21 01/09/21 06:21 Labs: Abnormal Lab Results - Last 24 Hours (Table) 01/09/21 Range/Units 06:21 Metamyelocytes % 3 H (0-0) % Myelocytes % 4 H (0-0) % Basophils # (Manual) 0.15 H (0.00-0.10) Assessment and Plan Assessment: COVID-19 pneumonia without hypoxia and desaturation but for symptoms of dry nonproductive intermittent cough while awake sitting upright Occult intermittent aspiration cannot be excluded UTI Sinus bradycardia Metabolic encephalopathy likely related to UTI and sepsis due to UTI Hypothyroidism GERD Baseline COPD not in exacerbation Plan: Continue deep breathing sense incentive spirometry Recommend Decadron for 10 days Increase activity as tolerated Antibiotics for UTI, ID service has been following Time with Patient: Greater than 30
[2021-01-10] MEDS: dexAMETHasone 2 MG TAB PO SCH (13:49)
--- NOTE | 2021-01-10 18:19 | PN ---
PROGRESS NOTE DATE OF SERVICE: 01/10/2021. This 85-year-old woman who was admitted with acute Covid 19 infection with acute bilateral pneumonia with severe sepsis and hypotension, shock is being closely monitored at this time. The patient continues to be quite confused. Patient has some incessant cough also. Pulmonary is following the patient closely. PHYSICAL EXAMINATION: Alert and oriented x2. Pulse 87. Blood pressure 96/56, respiration 18, temperature 97.7, pulse ox 97% on room air. HEENT: Conjunctivae normal. NECK: No JVD. CARDIOVASCULAR: S1, S2, muffled. No S3, no S4, RESPIRATORY: Diminished breath sounds at the bases. A few scattered rhonchi. ABDOMEN: Soft. Nontender. NERVOUS SYSTEM: No focal deficits. LABS: WBC 7.6, hemoglobin 11.1. Sodium 140. Potassium 4. ASSESSMENT: 1. Acute Covid 19 infection with acute bilateral pneumonia with severe sepsis and hypotension in shock, present on admission. 2. Acute urinary tract infection present on admission with sepsis. 3. Bradycardia with drop PACs and blocked PACs per Cardiology. 4. Change in mental status, acute on chronic metabolic encephalopathy. 5. History of chronic obstructive pulmonary disease. 6. History of congestive heart failure, ejection fraction unknown. 7. Gait dysfunction. 8. History of dementia. 9. Gastroesophageal reflux disease. 10.Hypothyroidism. 11.History of hiatal hernia. 12.History of right mastectomy. 13.History of right ankle fracture. 14.Severe protein calorie malnutrition with body mass index of 15.9. 15.FULL CODE. RECOMMENDATIONS AND DISCUSSION: Recommend to continue current medications, management and symptomatic treatment. Otherwise, the patient is on empiric antibiotics. We will continue the rest of medications and Dr. Zhong will follow tomorrow. Closely follow with Infectious Disease and Pulmonary. MMODL / IJN: [id number] /
[2021-01-10] MEDS: RALOXIFENE 60 MG TAB PO SCH (20:45)
[2021-01-10] MEDS: ALPRAZolam 0.25 MG TAB PO SCH (20:45)
[2021-01-11] MEDS: SODIUM CHLORIDE 0.9% 1,000 ML IV SCH (04:33)
[2021-01-11] MEDS: ALBUTEROL HFA INHALER INHALATION SCH ×4 (08:36→19:37)
[2021-01-11] MEDS: TIOTROPIUM 2.5 MCG INHALER INHALATION SCH (08:36)
[2021-01-11] MEDS: atenoloL 25 MG TAB PO SCH (09:22)
[2021-01-11] MEDS: BENZONATATE 100 MG CAP PO SCH ×3 (09:22→21:15)
[2021-01-11] MEDS: LEVOTHYROXINE 50 MCG TAB PO SCH (09:22)
[2021-01-11] MEDS: dexAMETHasone 2 MG TAB PO SCH (09:22)
[2021-01-11] MEDS: ASPIRIN 325 MG TAB PO SCH (09:22)
[2021-01-11] MEDS: PANTOPRAZOLE 40 MG TABLET PO SCH (09:23)
[2021-01-11] MEDS: ENOXAPARIN 30 MG/0.3 ML SYRINGE SQ SCH (09:23)
[2021-01-11] MEDS: ZINC SULFATE 220 MG CAP PO SCH (09:23)
[2021-01-11] MEDS: MULTIVITAMINS, THERA 1 EACH TAB PO SCH (09:23)
[2021-01-11] MEDS: MEMANTINE 5 MG TAB PO SCH ×2 (09:23→21:15)
[2021-01-11] MEDS: CHOLECALCIFEROL 25 MCG (1000 IU) TABLET PO SCH (09:23)
[2021-01-11] MEDS: ASCORBIC ACID 500 MG TAB PO SCH (09:23)
[2021-01-11] MEDS: SENNOSIDES-DOCUSATE SODIUM 1 EACH TAB PO SCH (09:23)
--- NOTE | 2021-01-11 10:33 | P.PN ---
Subjective Progress Note Date: 01/11/21 Principal diagnosis: COVID-19 pneumonia without hypoxia and desaturation but due to symptoms of intermittent dry nonproductive cough Occult intermittent aspiration cannot be excluded but however no current/overt aspiration noted UTI Sinus bradycardia Metabolic encephalopathy likely related to UTI and sepsis due to UTI Hypothyroidism GERD Baseline COPD not in exacerbation 01/11/2021, patient seen eval reexamined awake and alert breathing comfortably, still intermittent cough is present which is dry and nonproductive, oxygen saturation 96% on room air, hemodynamic status stable remains afebrile, patient remains on therapy with IV Rocephin for UTI and the anticoagulation with Lovenox and Decadron for COVID-19 pneumonia 01/10/2021, patient seen eval examined during the rounds labs reviewed medications reviewed care plan discussed, patient is awake and alert, remains on room air, oxygen saturation is stable however dry nonproductive cough is present, radiographic studies are consistent with covert pneumonia, patient remains on bronchodilators as needed as well as [id number],, also on Rocephin for UTI, would recommend to start Decadron 10 day course This is a 85-year-old female with advanced dementia past medical history significant for COPD and dementia presented to hospital yesterday afternoon from the [facility] for increased work of breathing patient did tested positive for Covid at the [facility] and the patient symptoms started the day before presentation to the hospital patient did not have any acute symptoms on presentation to the hospital to the ER physician patient on presentation to the hospital was afebrile subsequently have low-grade fever 100.4, patient remains 95 to 96% on room air patient did have a normal white count and no lymphopenia D-dimer was mild elevated 1.33 creatinine is normal AST is mild elevated at 49 patient also have a positive UA with large leukocyte esterase more than 22 WBC her admit chest x-ray bilateral lower lobe infiltrate and small effusion chronic granulomatous disease and CT angiogram of the chest motion artifact dilated thoracic esophagus patchy groundglass changes in lower lungs correlate for possible aspiration pneumonitis infectious was consulted for further management. A follow-up chest x-ray on the January 07 positive for bilateral patchy interstitial infiltrate likely COVID-19 pneumonia Patient is currently breathing comfortably on room air and overall specifically denies having any chest pain shortness of breath or cough mention she is feeling fine no abdominal pain or any diarrhea per the nursing staff the patient daughter has called the hospital and has told the nursing staff she does not want the patient to be given remdesivir, most information has been obtained r randi the chart talking nursing staff the patient was evaluated good historian but did provide some limited history Objective - Vital Signs Vital signs: Vital Signs Temp 97.5 F L 01/11/21 10:12 Pulse 93 01/11/21 10:12 Resp 18 01/11/21 10:12 BP 108/66 01/11/21 10:12 Pulse Ox 96 01/11/21 10:12 Intake & Output 01/10/21 01/11/21 01/11/21 18:59 06:59 18:59 Intake Total 360 Output Total 300 1150 Balance -300 -790 Weight 49.895 kg Intake: Intake, IV Titration 120 Amount Sodium Chloride 0.9% 1, 120 000 ml @ 100 mls/hr IV . Q10H [facility] Rx#:[id number] Oral 240 Output: Urine 300 1150 Other: Voiding Method External Catheter # Voids 1 1 - Exam - Constitutional General appearance: average body habitus, disheveled - EENT Eyes: EOMI, PERRLA Ears: bilateral: normal - Neck Carotids: bilateral: upstroke normal Thyroid: bilateral: normal size - Respiratory Respiratory: bilateral: CTA - Cardiovascular Rhythm: regular Heart sounds: normal: S1, S2 - Gastrointestinal General gastrointestinal: normal bowel sounds - Neurologic Neurologic: CNII-XII intact - Musculoskeletal Musculoskeletal: generalized weakness, strength equal bilaterally - Labs CBC & Chem 7: 01/09/21 06:21 01/09/21 06:21 Assessment and Plan Assessment: COVID-19 pneumonia without hypoxia and desaturation but for symptoms of dry nonproductive intermittent cough while awake sitting upright Occult intermittent aspiration cannot be excluded but less likely UTI Sinus bradycardia Metabolic encephalopathy likely related to UTI and sepsis due to UTI Hypothyroidism GERD Baseline COPD not in exacerbation Plan: Continue deep breathing exercise and incentive spirometry Recommend oral Decadron for 10 days Increase activity as tolerated Antibiotics for UTI, ID service has been following Time with Patient: Greater than 30
[2021-01-11] MEDS: ALPRAZolam 0.25 MG TAB PO SCH (21:14)
[2021-01-11] MEDS: RALOXIFENE 60 MG TAB PO SCH (21:15)
--- NOTE | 2021-01-12 06:29 | PN ---
PROGRESS NOTE 85-year-old white female with Covid pneumonia. Apparently, the family had refused her . Patient still has congested cough. Severe in nature. Appears to be short of breath at rest. Has oxygen on. Needs to go to rehab center for possible Covid for long- term rehab due to generalized weakness Cardiovascular S1, S2. Lungs scattered wheeze x4. Mild rhonchi x4. Hematology negative Homans. Psych: Fair mood and affect. Neurologic: Alert and oriented times three. ASSESSMENT: 1. Covid pneumonia. 2. Chronic obstructive pulmonary disease. 3. Acute hypoxemic respiratory distress. 4. Encephalopathy secondary to Covid with some delirium. 5. Severe cough secondary to Covid. Continue steroids, Symbicort. Prognosis guarded. Follow up in next 24 to 48 hours for discharge to rehab center. JUSTO / KIARRA: [id number] /
--- NOTE | 2021-01-12 06:58 | PN ---
PROGRESS NOTE DATE OF SERVICE: 01/11/2021. REASON FOR FOLLOWUP VISIT: 1. Covid 19 pneumonia. 2. Possible UTI. INTERVAL HISTORY: Patient is afebrile. The patient continues to be breathing comfortably on room air. Currently 95-98 percent. The patient did have a congested cough, not bringing up any sputum though. Denies abdominal pain. No diarrhea. PHYSICAL EXAMINATION: Blood pressure 96/63 with a pulse of 89, temperature 98.1. She is 95% on room air. General description is an elderly female lying in bed in no distress. Respiratory system: Unlabored breathing, coarse breath sounds bilaterally. No wheeze. Heart S1, S2. Regular rate and rhythm. Abdomen soft, no tenderness. LABS: No new labs have been obtained today. DIAGNOSTIC IMPRESSION AND PLAN: 1. Patient with acute COVID-19 infection patient hypoxic, currently covered with the Lovenox, zinc and ascorbic acid, Tessalon Perles for the . 2. Possible urinary tract infection. Continue with Rocephin and monitor clinical course closely. MMODL / IJN: [id number] /
[2021-01-12] MEDS: ENOXAPARIN 30 MG/0.3 ML SYRINGE SQ SCH (07:55)
[2021-01-12] MEDS: dexAMETHasone 2 MG TAB PO SCH (07:56)
[2021-01-12] MEDS: ASPIRIN 325 MG TAB PO SCH (07:56)
[2021-01-12] MEDS: ASCORBIC ACID 500 MG TAB PO SCH (07:56)
[2021-01-12] MEDS: PANTOPRAZOLE 40 MG TABLET PO SCH (07:56)
[2021-01-12] MEDS: SENNOSIDES-DOCUSATE SODIUM 1 EACH TAB PO SCH (07:56)
[2021-01-12] MEDS: ZINC SULFATE 220 MG CAP PO SCH (07:57)
[2021-01-12] MEDS: CHOLECALCIFEROL 25 MCG (1000 IU) TABLET PO SCH (07:57)
[2021-01-12] MEDS: LEVOTHYROXINE 50 MCG TAB PO SCH (07:57)
[2021-01-12] MEDS: MEMANTINE 5 MG TAB PO SCH (07:57)
[2021-01-12] MEDS: BENZONATATE 100 MG CAP PO SCH (07:57)
[2021-01-12] MEDS: atenoloL 25 MG TAB PO SCH (07:57)
[2021-01-12] MEDS: MULTIVITAMINS, THERA 1 EACH TAB PO SCH (08:01)
[2021-01-12] MEDS: ALBUTEROL HFA INHALER INHALATION SCH ×3 (10:14→10:17)
[2021-01-12] MEDS: TIOTROPIUM 2.5 MCG INHALER INHALATION SCH (10:16)
[2021-01-12 10:23] VITALS: BP 107/62; PULSE 96; RESP 15; TEMP 98.5
--- NOTE | 2021-01-12 11:43 | DS ---
DISCHARGE SUMMARY CONDITION: Stable. PROGNOSIS: Guarded. DISCHARGE DIAGNOSIS: 1. Dementia. 2. Delirium. 3. Elevated D. 4. Chronic obstructive pulmonary disease. 5. COVID pneumonia. 6. Acute hypoxemic respiratory distress. DISCHARGE MEDICINE: 1. Zinc sulfate 220 mg daily for 15 days. 2. Vitamin C 500 mg daily for 15 days. 3. Vitamin D 325 mcg p.o. daily for 15 days. 4. Hexadrol 6 mg p.o. daily for 15 days. 5. Lovenox 30 mg subcutaneously daily for 15 days. 6. Tessalon Perles 200 t.i.d. 7. Synthroid 50 mcg p.o. daily. 8. Omeprazole 40 mg p.o. daily. 9. Multivitamins 1 daily. 10.Namenda 5 mg b.i.d. 11.Atenolol 25 mg daily. 12.DuoNeb updraft b.i.d. 13. gel caps 2 caps q.4 hours p.r.n. for pain. 14.Xanax 0.5 mg at bedtime. 15.Ventolin HFA inhaler 2 puffs q.4 hours p.r.n. 16.Senokot 1 daily. 17.Aspirin 325 mg daily. Ambulate as tolerated. This white female came in with COVID pneumonia, acute hypoxemic respiratory distress, COVID-19, COVID pneumonia, COPD, history of dementia, hypertension. Remdesivir was refused by the family. She will continue updrafts, inhalers, standard COVID treatments, including Lovenox injections, steroids 6 mg daily for 15 days, zinc 50 mg daily for 15 days. Continue with respiratory and physical therapy for generalized weakness due to COVID-19 pneumonia with delirium, making her dementia worse. She was rehydrated. Standard COVID treatments were given except for remdesivir, which family refused. Follow up in the 24 to 48 hours for discharge. MMODL / IJN: [id number] /
== END 2021-01-12 14:15 | DRG 871 ==
LOC: EC 13:35 → 4SSUR 17:21
PROVIDERS: ADMIT Family Medicine; ATTEND Family Medicine
PROC: XW033G6 Introduction of REGN-COV2 Monoclonal Antibody into Peripheral Vein, Percutaneous Approach, New Technology Group 6 (ICD-10-PCS; principal; 2021-01-06)
DX: A41.89 Other specified sepsis (principal); U07.1 COVID-19; J12.82 Pneumonia due to coronavirus disease 2019; R65.21 Severe sepsis with septic shock; G93.41 Metabolic encephalopathy; E43 Unspecified severe protein-calorie malnutrition; R64 Cachexia; E87.1 Hypo-osmolality and hyponatremia; Z68.1 Body mass index [BMI] 19.9 or less, adult; N39.0 Urinary tract infection, site not specified; F03.90 Unspecified dementia, unspecified severity, without behavioral disturbance, psychotic disturbance, mood disturbance, and anxiety; I11.0 Hypertensive heart disease with heart failure; I50.9 Heart failure, unspecified; D71 Functional disorders of polymorphonuclear neutrophils; J43.9 Emphysema, unspecified; E03.9 Hypothyroidism, unspecified; I49.1 Atrial premature depolarization; R32 Unspecified urinary incontinence; R09.02 Hypoxemia; K44.9 Diaphragmatic hernia without obstruction or gangrene; K21.9 Gastro-esophageal reflux disease without esophagitis; I25.10 Atherosclerotic heart disease of native coronary artery without angina pectoris; R26.9 Unspecified abnormalities of gait and mobility; Q71.31 Congenital absence of right hand and finger; Z79.82 Long term (current) use of aspirin; Z79.810 Long term (current) use of selective estrogen receptor modulators (SERMs); Z79.890 Hormone replacement therapy; Z79.899 Other long term (current) drug therapy; Z85.3 Personal history of malignant neoplasm of breast; Z90.11 Acquired absence of right breast and nipple; Z87.81 Personal history of (healed) traumatic fracture; Z98.42 Cataract extraction status, left eye; Z98.41 Cataract extraction status, right eye; Z98.890 Other specified postprocedural states; Z88.1 Allergy status to other antibiotic agents; Z82.49 Family history of ischemic heart disease and other diseases of the circulatory system; Z80.3 Family history of malignant neoplasm of breast
CPT/HCPCS: 36415; 71045; 71275; 80048; 80053; 81001; 82533; 83605; 83735; 83880; 84484; 85025; 85379; 85610; 85730; 87086; 87635; 93005; 93306; 94640; 99285

== ENCOUNTER 2021-03-07 15:18 | Inpatient (IN) | payer MEDICARE ==
[2021-03-07 16:53] LABS: Appearance,Urine Turbid (Clear); Bilirubin,Urine Negative (Negative); Blood,Urine Moderate (Negative); Budding Yeast,Urine Many /hpf; Color,Urine Yellow; Glucose,Urine (UA) Negative (Negative); Hyaline Casts,Urine 10 /lpf (0-2); Ketones,Urine Trace (Negative); Leukocyte Esterase,Urine Large (Negative); Mucus,Urine Few /hpf; Nitrite,Urine Negative (Negative); Protein,Urine 1+ (Negative); RBC,Urine 120 /hpf (0-5); Specific Gravity,Urine 1.018 (1.001-1.035); Urobilinogen,Urine <2.0 mg/dL (<2.0); WBC,Urine >182 /hpf (0-5)
[2021-03-07 16:57] LABS: ALT 14 U/L (4-34); AST 27 U/L (14-36); African American GFR (CKD) >90 (>60 ml/min/1.73 sqM); Albumin 2.5 g/dL (3.5-5.0); Alkaline Phosphatase 99 U/L (38-126); Anion Gap 7 mmol/L; Blood Urea Nitrogen 17 mg/dL (7-17); Calcium 8.2 mg/dL (8.4-10.2); Carbon Dioxide 23 mmol/L (22-30); Chloride 105 mmol/L (98-107); Glucose 98 mg/dL (74-99); Non-African American GFR(CKD) 83 (>60 ml/min/1.73 sqM); Potassium 4.4 mmol/L (3.5-5.1); Sodium 135 mmol/L (137-145); Total Bilirubin 0.4 mg/dL (0.2-1.3); Total Protein 6.1 g/dL (6.3-8.2)
[2021-03-07 17:06] LABS: Partial Thromboplastin Time 21.7 sec (22.0-30.0); Prothrombin Time 10.6 sec (9.0-12.0)
[2021-03-07 17:07] LABS: Anisocytosis Slight; Basophils # (A) 0.1 k/uL (0-0.2); Basophils % (A) 1 %; Eosinophils # (A) 0.1 k/uL (0-0.7); Eosinophils % (A) 1 %; Hypochromasia Slight; Lymphocytes # (A) 2.8 k/uL (1.0-4.8); Lymphocytes % (A) 24 %; MCH 30.6 pg (25.0-35.0); MCHC 31.6 g/dL (31.0-37.0); MCV 96.8 fL (80.0-100.0); Macrocytosis Slight; Mean Platelet Volume 7.8; Monocytes # (A) 0.6 k/uL (0-1.0); Monocytes % (A) 5 %; Neutrophils % (A) 68 %; Platelet Count 307 k/uL (150-450); RBC 4.24 m/uL (3.80-5.40); RDW 16.5 % (11.5-15.5); WBC 11.9 k/uL (3.8-10.6)
--- NOTE | 2021-03-07 17:19 | CT ---
EXAMINATION TYPE: CT brain wo con DATE OF EXAM: 03/07/2021 COMPARISON: 07/05/2020 HISTORY: CT brain without contrast CT DLP: There is moderate diffuse cerebral atrophy. There is enlargement of the ventricles. There is no mass effect nor midline shift. There is no evidence of intracranial hemorrhage. There is hypodensi ty in the periventricular white matter. The calvarium is intact. IMPRESSION: Cerebral atrophy and chronic small vessel ischemia. No acute intracranial abnormality. [employer] Automated exposure control for dose reduction was used.
--- NOTE | 2021-03-07 17:25 | XR ---
EXAMINATION TYPE: XR chest 2V DATE OF EXAM: 03/07/2021 COMPARISON: 01/07/2021 HISTORY: Follow-up pneumonia TECHNIQUE: 2 views FINDINGS: Heart is normal. Lungs are clear of consolidation. There are no hilar masses. Thoracic aort a is atheromatous. Bony thorax is intact. There is some minimal reticular density lateral right lung base. There is calcified granuloma left lower lobe. IMPRESSION: There is some minimal reticular infiltrate lateral right lower lobe. Infiltrate mostly cl eared in both lungs compared to old exam.
[2021-03-07] MEDS ORDERED: SODIUM CHLORIDE 0.9% 1,000 ML IV STA ×2 (17:26)
--- NOTE | 2021-03-07 18:01 | ED ---
General Adult HPI - General Chief complaint: Weakness Stated complaint: General weakness Time Seen by Provider: 03/07/21 15:40 Source: EMS, RN notes reviewed, old records reviewed Mode of arrival: EMS Limitations: no limitations - History of Present Illness Initial comments: Patient is an 85-year-old female with past medical history remarkable for demen tia, cancer, COPD, GERD who had Covid 19 approximately 1-2 months ago has been having decreased by mouth intake since presents emergency department after being called by family. Patient presented from [facility] home. They're concerned for increased weakness and mild confusion. She is typically alert and oriented 2-3 at baseline which is currently. She is no acute complaints at this time. She is overall poor historian. I was able to contact the patient's guardian, Toyin, who was able to tell me that they're concerned for increased weakness and would like urology to possibly evaluate her as she is having worsening confusion. They're uncertain if this is for progressive dementia. Patient does have a history of UTIs. Patient is DNR/DNI. Otherwise no acute complaints. - Related Data Home Medications Medication Instructions Recorded Confirmed Levothyroxine Sodium [Synthroid] 50 mcg PO DAILY@0800 04/01/17 03/07/21 Memantine [Namenda] 5 mg PO BID@11/02/19 03/07/21 Multivitamins, Thera [Multivitamin 1 tab PO DAILY@0800 11/02/19 03/07/21 (formulary)] Omeprazole 40 mg PO DAILY@0800 11/02/19 03/07/21 atenoloL 25 mg PO DAILY@0800 11/02/19 03/07/21 Ipratropium-Albuterol Nebulize 3 ml INHALATION RT-BID@01/06/21 [Duoneb 0.5 mg-3 mg/3 ml Soln] Sennosides-Docusate Sodium 1 tab PO DAILY@0800 01/06/21 03/07/21 [Senokot-S] Tylenol Gelcaps (Unknown Strength) 2 cap PO BID@08,199901/06/21 03/07/21 ALPRAZolam [Xanax] 0.25 mg PO BID@0803/07/21 03/07/21 Aspirin EC [Ecotrin Low Dose] 81 mg PO DAILY@0800 03/07/21 03/07/21 Fluconazole [Diflucan] 100 mg PO DAILY@0800 03/07/21 03/07/21 Raloxifene HCl 60 mg PO DAILY@0800 03/07/21 03/07/21 Silver Sulfadiazine [SSD 1% Cream] 1 applic TOPICAL BID@0800,2000 03/07/21 03/07/21 Tylenol Gelcaps (Unknown Strength) 2 cap PO Q8H PRN 03/07/21 03/07/21 traMADol HCL 50 mg PO TID@0000,0800,1600 03/07/21 03/07/21 Previous Rx's Medication Instructions Recorded Albuterol Inhaler [Ventolin Hfa 2 puff INHALATION RT-Q4H PRN puff 07/08/20 Inhaler] HYDROcodone/APAP 5-325MG [[place] 1 tab PO Q6HR PRN 3 Days #12 tab 01/11/21 5-325] Allergies Allergy/AdvReac Type Severity Reaction Status Date / Time cefuroxime Allergy Intermediate Hives Verified 03/07/21 16:41 Review of Systems ROS Statement: Those systems with pertinent positive or pertinent negative responses have been documented in the HPI. Review of Systems: CONST: Denies fever EYES: Denies blurry vision ENT: Denies nasal congestion C/V: Denies Chest pain RESP: Denies shortness of breath GI: Denies abdominal pain : Denies dysuria SKIN: Denies rash. MSK: Denies joint pain. NEURO: Denies headache ROS Other: All systems not noted in ROS Statement are negative. 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 Past Anesthesia/Blood Transfusion Reactions: No Reported Reaction Past Psychological History: No Psychological Hx Reported Smoking Status: Never smoker Past Alcohol Use History: None Reported Past Drug Use History: None Reported - Past Family History Father Additional Family Medical History / Comment(s): heart disease. Mother Additional Family Medical History / Comment(s): heart disease. Sister(s) Family Medical History: Cancer Additional Family Medical History / Comment(s): 3 SISTERS WITH BREAST CA General Exam - General Exam Comments Initial Comments: General: Cachectic individual with no acute distress. HEAD: Normal with no signs of head trauma. EYES: PERRLA, EOMI, conjunctiva normal, no discharge. Pupils are 3 mm and equal bilaterally. ENT: Hearing grossly intact, normal oropharynx. RESPIRATORY: Clear breath sounds bilaterally. No wheezes, rales, or rhonchi. C/V: Regular rate and rhythm. S1 and S2 auscultated, no edema, peripheral pulses 2+ and intact throughout ABD: Abd is soft, nontender, nondistended EXT: Patient has an amputated right hand. SKIN: Patient has a stage 1-2 decubitus ulcer located over the sacrum, that is clean, no discharge, including margins. No concern for infection. NEURO: Alert and oriented 3. Generalized weakness. No focal sensory deficits. NIH is 0. Limitations: no limitations Course Vital Signs 03/07/21 03/07/21 15:21 19:17 Temperature 98.5 F 97.7 F Pulse Rate 80 88 Respiratory 18 18 Rate Blood Pressure 92/54 94/62 O2 Sat by Pulse 98 98 Oximetry Medical Decision Making - Medical Decision Making Based on the patient's presentation and physical exam, she does appear malnou rished and is concerned for possible infectious etiology including UTI for her acute confusion and weakness. Cannot rule out an intracranial abnormality. Therefore basic labs, urinalysis, CT head, chest x-ray will be obtained. EKG will also be obtained. Patient was in agreement this plan. She was started on 1 L fluid bolus. Patient's EKG shows no signs of acute ischemia. Chest x-ray shows no acute cardiopulmonary process, with improving infiltrates from prior covid infection. CT revealed no acute intracranial process. Laboratory studies were remarkable for a mild leukocytosis of 11.9. Troponin is normal. Urinalysis shows UTI. Covid is negative. At this time, I informed the patient that she has a urinary tract infection and also spoke with her guardian. I would like to admit her to the hospital for IV antibiotics. They were in agreement this plan. Patient was started on lev ofloxacin as she does have ALLERGY to cephalosporins. She'll be started on maintenance fluid. I called the patient's physician, Dr. Zhong who was in agreement this plan. He requests that I consult neurology for evaluation. I also consulted dietary. Patient was admitted in serous condition. - Lab Data Result diagrams: 03/07/21 16:24 12 16:24 Lab Results 03/07/21 03/07/21 03/07/21 Range/Units 16:24 16:24 16:24 WBC 11.9 H (3.8-10.6) k/uL RBC 4.24 (3.80-5.40) m/uL Hgb 13.0 (11.4-16.0) gm/dL Hct 41.0 (34.0-46.0) % MCV 96.8 (80.0-100.0) fL MCH 30.6 (25.0-35.0) pg MCHC 31.6 (31.0-37.0) g/dL RDW 16.5 H (11.5-15.5) % Plt Count 307 (150-450) k/uL MPV 7.8 Neutrophils % 68 % Lymphocytes % 24 % Monocytes % 5 % Eosinophils % 1 % Basophils % 1 % Neutrophils # 8.0 H (1.3-7.7) k/uL Lymphocytes # 2.8 (1.0-4.8) k/uL Monocytes # 0.6 (0-1.0) k/uL Eosinophils # 0.1 (0-0.7) k/uL Basophils # 0.1 (0-0.2) k/uL Manual Slide Review Performed Hypochromasia Slight Anisocytosis Slight Macrocytosis Slight PT 10.6 (9.0-12.0) sec INR 1.0 (<1.2) APTT 21.7 L (22.0-30.0) sec Sodium (137-145) mmol/L Potassium (3.5-5.1) mmol/L Chloride (98-107) mmol/L Carbon Dioxide (22-30) mmol/L Anion Gap mmol/L BUN (7-17) mg/dL Creatinine (0.52-1.04) mg/dL Est GFR (CKD-EPI)AfAm (>60 ml/min/1.73 sqM) Est GFR (CKD-EPI)NonAf (>60 ml/min/1.73 sqM) Glucose (74-99) mg/dL Plasma Lactic Acid Te[place]ilo (0.7-2.0) mmol/L Calcium (8.4-10.2) mg/dL Magnesium (1.6-2.3) mg/dL Total Bilirubin (0.2-1.3) mg/dL AST (14-36) U/L ALT (4-34) U/L Alkaline Phosphatase (38-126) U/L Troponin I (0.000-0.034) ng/mL Total Protein (6.3-8.2) g/dL Albumin (3.5-5.0) g/dL Urine Color Yellow Urine Appearance Turbid H (Clear) Urine pH 6.0 (5.0-8.0) Ur Specific Williams 1.018 (1.001-1.035) Urine Protein 1+ H (Negative) Urine Glucose (UA) Negative (Negative) Urine Ketones Trace H (Negative) Urine Blood Moderate H (Negative) Urine Nitrite Negative (Negative) Urine Bilirubin Negative (Negative) Urine Urobilinogen <2.0 (<2.0) mg/dL Ur Leukocyte Esterase Large H (Negative) Urine RBC 120 H (0-5) /hpf Urine WBC >182 H (0-5) /hpf Urine WBC Clumps Many H (None) /hpf Hyaline Casts 10 H (0-2) /lpf Urine Mucus Few H (None) /hpf Urine Yeast (Budding) Many H (None) /hpf 03/07/21 03/07/21 03/07/21 Range/Units 16:24 16:24 16:24 WBC (3.8-10.6) k/uL RBC (3.80-5.40) m/uL Hgb (11.4-16.0) gm/dL Hct (34.0-46.0) % MCV (80.0-100.0) fL MCH (25.0-35.0) pg MCHC (31.0-37.0) g/dL RDW (11.5-15.5) % Plt Count (150-450) k/uL MPV Neutrophils % % Lymphocytes % % Monocytes % % Eosinophils % % Basophils % % Neutrophils # (1.3-7.7) k/uL Lymphocytes # (1.0-4.8) k/uL Monocytes # (0-1.0) k/uL Eosinophils # (0-0.7) k/uL Basophils # (0-0.2) k/uL Manual Slide Review Hypochromasia Anisocytosis Macrocytosis PT (9.0-12.0) sec INR (<1.2) APTT (22.0-30.0) sec Sodium 135 L (137-145) mmol/L Potassium 4.4 (3.5-5.1) mmol/L Chloride 105 (98-107) mmol/L Carbon Dioxide 23 (22-30) mmol/L Anion Gap 7 mmol/L BUN 17 (7-17) mg/dL Creatinine 0.58 (0.52-1.04) mg/dL Est GFR (CKD-EPI)AfAm >90 (>60 ml/min/1.73 sqM) Est GFR (CKD-EPI)NonAf 83 (>60 ml/min/1.73 sqM) Glucose 98 (74-99) mg/dL Plasma Lactic Acid Teofilo 1.5 (0.7-2.0) mmol/L Calcium 8.2 L (8.4-10.2) mg/dL Magnesium 2.0 (1.6-2.3) mg/dL Total Bilirubin 0.4 (0.2-1.3) mg/dL AST 27 (14-36) U/L ALT 14 (4-34) U/L Alkaline Phosphatase 99 (38-126) U/L Troponin I 0.012 (0.000-0.034) ng/mL Total Protein 6.1 L (6.3-8.2) g/dL Albumin 2.5 L (3.5-5.0) g/dL Urine Color Urine Appearance (Clear) Urine pH (5.0-8.0) Ur Specific Williams (1.001-1.035) Urine Protein (Negative) Urine Glucose (UA) (Negative) Urine Ketones (Negative) Urine Blood (Negative) Urine Nitrite (Negative) Urine Bilirubin (Negative) Urine Urobilinogen (<2.0) mg/dL Ur Leukocyte Esterase (Negative) Urine RBC (0-5) /hpf Urine WBC (0-5) /hpf Urine WBC Clumps (None) /hpf Hyaline Casts (0-2) /lpf Urine Mucus (None) /hpf Urine Yeast (Budding) (None) /hpf - EKG Data -: EKG Interpreted by Me EKG Comments: 12-lead Electrocardiogram Interpretation Note EKG was reviewed and interpreted by myself. 12-lead ECG performed at 1613 is interpreted by me as revealing normal sinus rhythm at a rate of 99 beats per minute. [place] is normal. TN interval is 154 ms, QRS duration is 76 seconds, QTC is 454 ms.. There were no ST or T wave abnormalities to suggest myocardial ischemia or injury. R wave progression across the precordium was satisfactory. By my interpretation this EKG is non-diagnostic for acute ischemia. Disposition Clinical Impression: UTI (urinary tract infection), Confusion, Malnourished Disposition: ADMITTED IP TO THIS HOSP Condition: Serious
[2021-03-07] MEDS ORDERED: ONDANSETRON 4 MG/2 ML VIAL IVP PRN (18:02)
[2021-03-07] MEDS: LEVOFLOXACIN 500MG-D5W PMX 500 MG in DEXTROSE/WATER 1 100ML.BAG IVPB SCH (18:02)
[2021-03-07] MEDS ORDERED: ACETAMINOPHEN TAB 325 MG TAB PO PRN (18:02)
[2021-03-07] MEDS ORDERED: ALBUTEROL NEBULIZED 2.5 MG/3 ML INHALATION PRN (18:04)
[2021-03-07] MEDS: HEPARIN SODIUM,PORCINE/PF 5,000 UNIT/0.5 ML SYRINGE SQ SCH (22:35)
[2021-03-07] MEDS: MEMANTINE 5 MG TAB PO SCH (22:35)
[2021-03-08] MEDS: HEPARIN SODIUM,PORCINE/PF 5,000 UNIT/0.5 ML SYRINGE SQ SCH ×2 (09:37→21:25)
[2021-03-08] MEDS: ASPIRIN 81 MG PO SCH (09:37)
[2021-03-08] MEDS: SENNOSIDES-DOCUSATE SODIUM 1 EACH TAB PO SCH ×2 (09:38→11:18)
[2021-03-08] MEDS: LEVOTHYROXINE 50 MCG TAB PO SCH (09:38)
[2021-03-08] MEDS: MULTIVITAMINS, THERA 1 EACH TAB PO SCH (09:38)
[2021-03-08] MEDS: PANTOPRAZOLE 40 MG TABLET PO SCH (09:38)
[2021-03-08] MEDS: atenoloL 25 MG TAB PO SCH (09:38)
[2021-03-08 09:43] LABS: HGB 12.1 g/dL (12.0-15.0); MCH 29.4 pg (27.0-32.0); MCHC 29.5 g/dL (32.0-37.0); MCV 99.5 fL (80.0-97.0); Mean Platelet Volume 9.9 fL (9.5-12.2); Platelet Count 278 X 10*3/uL (140-440); RBC 4.12 X 10*6/uL (4.10-5.20); RDW 17.9 % (11.5-14.5); WBC 12.21 X 10*3/uL (4.50-10.00)
[2021-03-08] MEDS: MEMANTINE 5 MG TAB PO SCH ×2 (09:48→21:25)
[2021-03-08] MEDS: LEVOFLOXACIN 500MG-D5W PMX 500 MG in DEXTROSE/WATER 1 100ML.BAG IVPB SCH (09:48)
[2021-03-08] MEDS: FLUCONAZOLE 100 MG TAB PO SCH (09:48)
[2021-03-08 10:44] LABS: Basophils # (M) 0 X 10*3/uL (0.00-0.10); Eosinophils # (M) 0 X 10*3/uL (0.04-0.35); Lymphocytes # (M) 0.12 X 10*3/uL (0.90-5.00); Metamyelocytes % 1 % (0-0); Monocytes # (M) 0.12 X 10*3/uL (0.20-1.00); Myelocytes % 3 % (0-0); Neutrophils # (M) 11.48 X 10*3/uL (2.00-8.90); Neutrophils % (M) 94 %
--- NOTE | 2021-03-08 10:51 | P.CNNES ---
History of Present Illness Consult date: 03/08/21 Requesting physician: Abrahan Pollack Reason for Consult: confusion History of Present Illness: This is an 85-year-old woman with medical history of dementia, COVID-19 pneumonia about 1-2 months ago, breast cancer status post right mastectomy, heart failure, hypothyroidism urinate tract infection, who presented emergency department on 03/07/2021 because of decreased oral intake. Neurology is consulted for confusion per primary team's request. History is obtained from medical record. Patient presented from [facility] home. Per the ED note it seems of the patient and has been having increased generalized weakness and mild confusion and at baseline she is oriented 2-3. The family notified the ED team that they're uncertain if the patient is having worsening of her dementia. Seem to the patient the CODE STATUS is DO NOT RESUSCITATE DO NOT INTUBATE per the ED note. Per the patient's nurse no seizure-like activity overnight that is reported to her or so far during her shift. Patient states she is doing well but could not give me a good history. But patient denies of headaches, vomiting. Some of the patient's home medications per EMR consists of: Aspirin 81 mg, atenolol, Synthroid, Namenda 5 mg 1 tablet twice a day, tramadol 50 mg 1 tablet 3 times a day, [place] 1 tablet every 6 hours as needed, Xanax 0.25 mg 1 tablet twice a day, albuterol, ralioxifene. Some other workup in the hospital consisted of: Initial vital signs and his blood pressure of the 92/54, heart rate of 80, respiratory of 18, temperature of 98.5 Fahrenheit oral and pulse ox of 98% room air. White blood cell is 11.9 thousand and is slightly neutrophilic. Sodium is 135, creatinine is 0.58, calcium is 8.2, magnesium is 2.0, AST of 27, ALT of 14. Urine analysis is the ketone is trace, nitrate was negative, leukocyte esterase large, urine white blood cells more than 182, urine 1 blood cell clumps is many. Lazar virus is are not detected. CT of the head is reported as cerebral atrophy and chronic small vessel ischemia. No acute intracranial abnormality. I personally reviewed the CT of the head and there is no acute or subacute ischemia and there is no intraparenchymal hemorrhage that's appreciable. Review of Systems Review of system: The 10 point systems is limited because of patient condition (confusion) but the pertinent positive and negative as per HPI. 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 Past Anesthesia/Blood Transfusion Reactions: No Reported Reaction Past Psychological History: No Psychological Hx Reported Smoking Status: Never smoker Past Alcohol Use History: None Reported Past Drug Use History: None Reported - Past Family History Father Additional Family Medical History / Comment(s): heart disease. Mother Additional Family Medical History / Comment(s): heart disease. Sister(s) Family Medical History: Cancer Additional Family Medical History / Comment(s): 3 SISTERS WITH BREAST CA Medications and Allergies Home Medications Medication Instructions Recorded Confirmed Type Levothyroxine Sodium [Synthroid] 50 mcg PO DAILY@0800 04/01/17 03/07/21 History Memantine [Namenda] 5 mg PO BID@08,199911/02/19 03/07/21 History Multivitamins, Thera [Multivitamin 1 tab PO DAILY@79911/02/19 03/07/21 History (formulary)] Omeprazole 40 mg PO DAILY@0800 11/02/19 03/07/21 History atenoloL 25 mg PO DAILY@0800 11/02/19 03/07/21 History Albuterol Inhaler [Ventolin Hfa 2 puff INHALATION RT-Q4H PRN puff 07/08/20 03/07/21 Rx Inhaler] Ipratropium-Albuterol Nebulize 3 ml INHALATION RT-BID@799,199901/06/21 03/07/21 History [Duoneb 0.5 mg-3 mg/3 ml Soln] Sennosides-Docusate Sodium 1 tab PO DAILY@0800 01/06/21 03/07/21 History [Senokot-S] Tylenol Gelcaps (Unknown Strength) 2 cap PO BID@08,199901/06/21 03/07/21 History HYDROcodone/APAP 5-325MG [[place] 1 tab PO Q6HR PRN 3 Days #12 tab 01/11/21 03/07/21 Rx 5-325] ALPRAZolam [Xanax] 0.25 mg PO BID@0800,199903/07/21 03/07/21 History Aspirin EC [Ecotrin Low Dose] 81 mg PO DAILY@0800 03/07/21 03/07/21 History Fluconazole [Diflucan] 100 mg PO DAILY@0800 03/07/21 03/07/21 History Raloxifene HCl 60 mg PO DAILY@0800 03/07/21 03/07/21 History Silver Sulfadiazine [SSD 1% Cream] 1 applic TOPICAL BID@799,199903/07/21 03/07/21 History Tylenol Gelcaps (Unknown Strength) 2 cap PO Q8H PRN 03/07/21 03/07/21 History traMADol HCL 50 mg PO TID@0000,0800,1600 03/07/21 03/07/21 History Allergies Allergy/AdvReac Type Severity Reaction Status Date / Time cefuroxime Allergy Intermediate Hives Verified 03/07/21 16:41 Physical Examination - Vital Signs Vital Signs: Vital Signs Temp Pulse Resp BP Pulse Ox 03/07/21 19:17 97.7 F 88 18 94/62 98 03/07/21 15:21 98.5 F 80 18 92/54 98 Intake and Output 03/07/21 03/08/21 03/08/21 22:59 06:59 14:59 Other: Weight 47.627 kg GENERAL: The patient is lying in bed and is not in acute distress. CHEST: The heart rate is regular rate rhythm. No murmurs to auscultation. No lower extremity edema. LUNG: Clear to auscultation bilaterally no wheezing noted throughout. Not labored breathing. ABDOMEN/GI: Bowel sounds present in all 4 quadrants. No tenderness to palpation throughout. NEUROLOGICAL: Higher mental function: The patient is awake, alert, oriented to self. She stated she was at hospital and at home to multiple options. She stated the year is 1982 and could not tell me month. She is able to name pen correctly. Brenden reyna is following few simple commands (thumbs up, sticking her tongue out, smiling). No neglect. It does not appear dementia but limited from limited exam. Cranial nerves: The pupils are round, equal and reactive to light. Visual bui are hard to assess. Extraocular movement is intact no nystagmus is noted. No facial weakness noted and has symetrical smile. Has temporal atrophy bilaterally. Hearing is very hard of hearing to bilateral hand rubs. Tongue is midline and moved [id number] without any difficulty. No dysarthria is noted. Rest of cranial nerves are hard to assess because of patient's cooperation. Motor: The strength is has able to raise bilateral upper extremity above gravity. 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 Able to dorsiflex and plantarflex her ankles bilaterally antigravity. She attempt to minimally bend her knees. It seems has atrophy in bilateral lower extremities. Cerebellum: Normal finger to nose over the left. Sensation: Sensation is hard to assess. Reflexes (right/left): 1+ throughout (has amputation of the right proximal forearm). Plantars are mute bilaterally. Results - Laboratory Findings CBC and BMP: 03/08/21 05:06 03/07/21 16:24 Abnormal Lab Findings: Abnormal Labs 03/07/21 03/07/21 03/07/21 16:24 16:24 16:24 WBC 11.9 H RDW 16.5 H Neutrophils # 8.0 H APTT 21.7 L Sodium Calcium Total Protein Albumin Urine Appearance Turbid H Urine Protein 1+ H Urine Ketones Trace H Urine Blood Moderate H Ur Leukocyte Esterase Large H Urine RBC 120 H Urine WBC >182 H Urine WBC Clumps Many H Hyaline Casts 10 H Urine Mucus Few H Urine Yeast (Budding) Many H 03/07/21 16:24 WBC RDW Neutrophils # APTT Sodium 135 L Calcium 8.2 L Total Protein 6.1 L Albumin 2.5 L Urine Appearance Urine Protein Urine Ketones Urine Blood Ur Leukocyte Esterase Urine RBC Urine WBC Urine WBC Clumps Hyaline Casts Urine Mucus Urine Yeast (Budding) Assessment and Plan Assessment: Altered mental status due to likely septic encephalopathy (urosepsis). 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 I'll hold off on getting a routine EEG at this time since it is not indicated (since patient underlying UTI and no seizure-like activity). We'll consider a routine EEG if the patient mentation continues to be altered and there is no improvement after antibiotic. Infection disease team is consulted. Patient is on Levofloxain and not sure if that is best drug in elderly patient (since can cause tendopathy). Will defer the antibiotic regiment to I.D. them. Blood and urine cultures ordered and are pending. We'll defer the rest of the medical management to the primary team. The plan is discussed with the patient's nurse. Called the patient's daughter and she notified me that she will contact me later today. Thank you for the consultation. UPDATE: I spoke with the patient's daughter via phone and she stated she had dementia for some time but unsure for how long especially since she had underlying UTI but unsure duration but her mentation has worsened for the past one year. At baseline she is oriented to self, possibly month but not year. She is oriented to place at baseline. She has been residing in [facility] since June 2020 and has been having pressure ulcer. She was kept bed bound at [facility]. The daughter feels possibly patient is being neglected at [facility]. The daughter was notified patient is refusing to eat but when daughter visit her recently and brought food patient was eating. She had multiple falls at [facility]. She had been bed bound at [facility] and resulted She was born with defect of the right upper extremity. She had history of breast cancer s/p massectomy in 1982. She had metastatic cancer to lumbar and cervical s/p radiation (last time 1990). The patient's daughter was notified to consider placing her somewhere else since patient's daughter is not comfortable at that place. I notified her that to consider neuropsych evaluation as outpatient after getting UTI treated to assess degree of dementia and further work-up as outpatient. Best Piedra MD Neuro-Hospitalist Time with Patient: Greater than 30
[2021-03-08] MEDS: RALOXIFENE 60 MG TAB PO SCH (11:26)
[2021-03-08 11:29] LABS: Magnesium 1.9 mg/dL (1.5-2.4)
[2021-03-08 12:00] LABS: African American GFR (CKD) 100.9 (60.0-200.0); Albumin 2.3 g/dL (3.8-4.9); Albumin/Globulin Ratio 0.74 (1.60-3.17); Anion Gap 17.1 mmol/L (10.00-18.00); Calcium 7.8 mg/dL (8.7-10.3); Carbon Dioxide 11.9 mmol/L (20.0-27.5); Globulin 3.1 g/dL (1.6-3.3); Total Bilirubin 0.3 mg/dL (0.30-1.20); Total Protein 5.4 g/dL (6.2-8.2)
[2021-03-08 14:52] VITALS: BMI 19.2
[2021-03-09 07:36] LABS: Folate, Serum >20.00 ng/mL (4.40-31.00)
--- NOTE | 2021-03-09 09:09 | P.CONS ---
History of Present Illness - Reason for Consult Consult date: 03/08/21 uti Requesting physician: Victor Hugo Zhong - Chief Complaint increasing confusion x days - History of Present Illness History of present illness : Patient is 85-year-old female with a past medical history difficult for dementia history of COPD with supraclavicular d isease and cancer who was brought into the ER for evaluation of weakness and mild confusion in this patient symptom has been going on for the last few days patient herself did not have any complaint on arrival to the ER the patient guardian was contacted by the ER physician and was concerned about increasing confusion and concern for possible progressive dementia did have a history of recurrent UTIs on presentation to the hospital patient was afebrile patient did have mild elevated white of 11 point 9 repeat is 12.21 kidney function was normal did have a positive UA hodges PCR was negative urine cultures obtained currently pending blood culture has been negative patient did have CT of the br ain no evidence of any bleed chest x-ray minimal reticular infiltrate noted right lower lobe patient was admitted to hospital she was started on Levaquin because of her cefuroxime allergy infectious he was consulted for further management positive for patient has been admitted for agree with discharging the patient hospital to provide any history, patient was also noticed to have a pressure ulceration to the sacralarea as well as lower extremity Review of system: Positive point has been mentioned in HPI complete review could not be obtained because of underlying mental status Past medical history : Reviewed, documented below Past surgical history : Reviewed, documented below Social history: Reviewed, documented below Medications: Reviewed, as documented below EXAMINATION: Vital sigans= Reviewed and documented below GENERAL DESCRIPTION: Elderly female lying in bed, no distress. No tachypnea or accessory muscle of respiration use. HEENT: Shows Pallor , no scleral icterus. Oral mucous membrane is dry. NECK: Trachea central, no thyromegaly. LUNGS: Unlabored breathing. Clear to auscultation anteriorly. No wheeze or crackle. HEART: S1, S2, regular rate and rhythm. ABDOMEN: Soft, no tenderness , guarding or rigidity EXTREMITIES: No edema of feet. SKIN: No rash, no masses palpable. Patient did have a some dry peripheral circulatory area and a C3 to the sacral area with minimal slough tissue no surrounding redness or drainage NEUROLOGICAL: The patient is awake, pleasantly confused orientation could not determine LABS AND RADIOLOGY: Reviewed results see below Assessment :1- Patient presented to hospital with increasing confusion with question of worsening dementia this patient did have a significantly positive UA and did have elevated white count underlying component of acute urinary tract excluded 2-cefuroxime allergy to limit the number of antibiotics safe to use 3-pressure ulcer to the sacral area with no cellulitis Plan: 1-continue the Levaquin while waiting for the culture to be finalized 2-local wound care to the sacral area with the Medihoney followed by dressing to the area of the upper 3-gentle IV fluid We will follow on clinical condition and cultures to further adjust medication if needed Thank you for this consultation follow the patient along with you Past Medical History Past Medical History: Cancer, Heart Failure, COPD, Dementia, GERD/Reflux, Thyroid Disorder Additional Past Medical History / Comment(s): HIATAL HERNIA, breast ca, bone cancer, 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 Past Anesthesia/Blood Transfusion Reactions: No Reported Reaction Past Psychological History: No Psychological Hx Reported Smoking Status: Never smoker Past Alcohol Use History: None Reported Past Drug Use History: None Reported - Past Family History Father Additional Family Medical History / Comment(s): heart disease. Mother Additional Family Medical History / Comment(s): heart disease. Sister(s) Family Medical History: Cancer Additional Family Medical History / Comment(s): 3 SISTERS WITH BREAST CA Medications and Allergies Home Medications Medication Instructions Recorded Confirmed Type Levothyroxine Sodium [Synthroid] 50 mcg PO DAILY@0804/01/17 03/07/21 History Memantine [Namenda] 5 mg PO BID@11/02/19 03/07/21 History Multivitamins, Thera [Multivitamin 1 tab PO DAILY@79911/02/19 03/07/21 History (formulary)] Omeprazole 40 mg PO DAILY@79911/02/19 03/07/21 History atenoloL 25 mg PO DAILY@79911/02/19 03/07/21 History Albuterol Inhaler [Ventolin Hfa 2 puff INHALATION RT-Q4H PRN puff 07/08/20 03/07/21 Rx Inhaler] Ipratropium-Albuterol Nebulize 3 ml INHALATION RT-BID@799,199901/06/21 03/07/21 History [Duoneb 0.5 mg-3 mg/3 ml Soln] Sennosides-Docusate Sodium 1 tab PO DAILY@0800 01/06/21 03/07/21 History [Senokot-S] Tylenol Gelcaps (Unknown Strength) 2 cap PO BID@799,199901/06/21 03/07/21 H istory HYDROcodone/APAP 5-325MG [[place] 1 tab PO Q6HR PRN 3 Days #12 tab 01/11/21 03/07/21 Rx 5-325] ALPRAZolam [Xanax] 0.25 mg PO BID@08,199903/07/21 03/07/21 History Aspirin EC [Ecotrin Low Dose] 81 mg PO DAILY@0800 03/07/21 03/07/21 History Fluconazole [Diflucan] 100 mg PO DAILY@0800 03/07/21 03/07/21 History Raloxifene HCl 60 mg PO DAILY@0800 03/07/21 03/07/21 History Silver Sulfadiazine [SSD 1% Cream] 1 applic TOPICAL BID@799,199903/07/21 03/07/21 History Tylenol Gelcaps (Unknown Strength) 2 cap PO Q8H PRN 03/07/21 03/07/21 History traMADol HCL 50 mg PO TID@0000,0800,1600 03/07/21 03/07/21 History Allergies Allergy/AdvReac Type Severity Reaction Status Date / Time cefuroxime Allergy Intermediate Hives Verified 03/07/21 16:41 Physical Exam Vitals: Vital Signs Temp Pulse Pulse Resp BP BP Pulse Ox 03/08/21 07:30 98.7 F 97 16 92/60 99 03/07/21 19:17 97.7 F 88 18 94/62 98 03/07/21 15:21 98.5 F 80 18 92/54 98 Intake and Output 03/08/21 03/08/21 03/08/21 06:59 14:59 22:59 Intake Total 110 Balance 110 Intake: IV 10 Invasive Line 1 10 Oral 100 Other: # Voids 1 # Bowel Movements 1 Weight 47.627 kg Results CBC & Chem 7: 03/08/21 05:06 03/08/21 05:06 Labs: Abnormal Lab Results - Last 24 Hours (Table) 03/07/21 03/07/21 03/07/21 Range/Units 16:24 16:24 16:24 WBC 11.9 H (3.8-10.6) k/uL MCV (80.0-97.0) fL MCHC (32.0-37.0) g/dL RDW 16.5 H (11.5-15.5) % Metamyelocytes % (0-0) % Myelocytes % (0-0) % Neutrophils # 8.0 H (1.3-7.7) k/uL Neutrophils # (Manual) (2.00-8.90) X 10*3/uL Lymphocytes # (Manual) (0.90-5.00) X 10*3/uL Monocytes # (Manual) (0.20-1.00) X 10*3/uL Eosinophils # (Manual) (0.04-0.35) X 10*3/uL APTT 21.7 L (22.0-30.0) sec Sodium (137-145) mmol/L Carbon Dioxide (20.0-27.5) mmol/L Creatinine (0.6-1.5) mg/dL BUN/Creatinine Ratio (12.00-20.00) Ratio Calcium (8.4-10.2) mg/dL Total Protein (6.3-8.2) g/dL Albumin (3.5-5.0) g/dL Albumin/Globulin Ratio (1.60-3.17) g/dL Urine Appearance Turbid H (Clear) Urine Protein 1+ H (Negative) Urine Ketones Trace H (Negative) Urine Blood Moderate H (Negative) Ur Leukocyte Esterase Large H (Negative) Urine RBC 120 H (0-5) /hpf Urine WBC >182 H (0-5) /hpf Urine WBC Clumps Many H (None) /hpf Hyaline Casts 10 H (0-2) /lpf Urine Mucus Few H (None) /hpf Urine Yeast (Budding) Many H (None) /hpf 03/07/21 03/08/21 03/08/21 Range/Units 16:24 05:06 05:06 WBC 12.21 H (3.8-10.6) k/uL MCV 99.5 H (80.0-97.0) fL MCHC 29.5 L (32.0-37.0) g/dL RDW 17.9 H (11.5-15.5) % Metamyelocytes % 1 H (0-0) % Myelocytes % 3 H (0-0) % Neutrophils # (1.3-7.7) k/uL Neutrophils # (Manual) 11.48 H (2.00-8.90) X 10*3/uL Lymphocytes # (Manual) 0.12 L (0.90-5.00) X 10*3/uL Monocytes # (Manual) 0.12 L (0.20-1.00) X 10*3/uL Eosinophils # (Manual) 0 L (0.04-0.35) X 10*3/uL APTT (22.0-30.0) sec Sodium 135 L (137-145) mmol/L Carbon Dioxide 11.9 L (20.0-27.5) mmol/L Creatinine 0.5 L (0.6-1.5) mg/dL BUN/Creatinine Ratio 24.00 H (12.00-20.00) Ratio Calcium 8.2 L 7.8 L (8.4-10.2) mg/dL Total Protein 6.1 L 5.4 L (6.3-8.2) g/dL Albumin 2.5 L 2.3 L (3.5-5.0) g/dL Albumin/Globulin Ratio 0.74 L (1.60-3.17) g/dL Urine Appearance (Clear) Urine Protein (Negative) Urine Ketones (Negative) Urine Blood (Negative) Ur Leukocyte Esterase (Negative) Urine RBC (0-5) /hpf Urine WBC (0-5) /hpf Urine WBC Clumps (None) /hpf Hyaline Casts (0-2) /lpf Urine Mucus (None) /hpf Urine Yeast (Budding) (None) /hpf Microbiology - Last 24 Hours (Table) 03/07/21 16:24 Urine Culture - Preliminary Urine,Clean Catch
[2021-03-09] MEDS: SENNOSIDES-DOCUSATE SODIUM 1 EACH TAB PO SCH (09:23)
[2021-03-09] MEDS: LEVOTHYROXINE 50 MCG TAB PO SCH (09:23)
[2021-03-09] MEDS: ASPIRIN 81 MG PO SCH (09:23)
[2021-03-09] MEDS: HEPARIN SODIUM,PORCINE/PF 5,000 UNIT/0.5 ML SYRINGE SQ SCH ×2 (09:23→20:37)
[2021-03-09] MEDS: atenoloL 25 MG TAB PO SCH (09:23)
[2021-03-09] MEDS: MULTIVITAMINS, THERA 1 EACH TAB PO SCH (09:23)
[2021-03-09] MEDS: PANTOPRAZOLE 40 MG TABLET PO SCH (09:23)
[2021-03-09] MEDS: FLUCONAZOLE 100 MG TAB PO SCH (09:24)
[2021-03-09] MEDS: RALOXIFENE 60 MG TAB PO SCH (09:24)
[2021-03-09] MEDS: MEMANTINE 5 MG TAB PO SCH ×2 (09:24→20:37)
--- NOTE | 2021-03-09 10:37 | P.CONS ---
History of Present Illness - Reason for Consult Consult date: 03/09/21 wound care - History of Present Illness This is a 85 year old female being seen for non healing ulcerations on 6N. she has a unstageable pressure ulcer to the right calcaneus. The area has ecchymosis and is boggy to touch. Skin at this time is intact. The left anterior lower extremity area has dry scaly skin there is no open ulcerations. The coccyx is a stage II pressure ulcer with fatty layer exposure measuring chaitanya roximately 1.5 x 0.7 x 0.2 cm granulation seen throughout the wound bed. Slough is noted to the wound bed, wound edges are attached to the wound base, there is no tunneling or undermining noted. The periwound shows a dry scaly and excoriation. Patient's past medical history significant for cancer, bone cancer, heart failure, COPD, dementia, hypo-thyroidism. She is a lifelong nonsmoker and denies diabetes. She resides at [facility]. She uses a walker. Review Of Systems: Constitutional: No fever, no chills, no night sweats. No weight change. No weakness, fatigue or lethargy. No daytime sleepiness. Integumentary:reports wounds, no lesions. No rash or pruritus. No unusual bruising. No change in hair or nails. Physical exam: General Appearance: Alert, cooperative, no distress, appears stated age. Skin: See HPI all other Skin color, texture, tugor normal, no rashes or lesions. Neurologic: Alert oriented x3 Assessment: 1. Right calcaneus unstageable pressure ulcer 2. Stage II pressure ulcer of coccyx Plan: 1.Right heel: Apply honey gel, dry gauze, foam, and wrap with gauze and secure with tape. Use heel protectors. 2. Coccyx: Apply honey gel, dry gauze and border foam. Turn patient [id number]. 3. Patient would benefit from continued advanced wound care and outpatient setting. We'll be happy to see her in the wound care center upon discharge. Thank you for the consultation any questions please contact the wound care center DNP note has been reviewed and discussed with Dr. Hatch and the impression and plan of care has been directed as dictated. 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 Past Anesthesia/Blood Transfusion Reactions: No Reported Reaction Past Psychological History: No Psychological Hx Reported Smoking Status: Never smoker Past Alcohol Use History: None Reported Past Drug Use History: None Reported - Past Family History Father Additional Family Medical History / Comment(s): heart disease. Mother Additional Family Medical History / Comment(s): heart disease. Sister(s) Family Medical History: Cancer Additional Family Medical History / Comment(s): 3 SISTERS WITH BREAST CA Medications and Allergies Home Medications Medication Instructions Recorded Confirmed Type Levothyroxine Sodium [Synthroid] 50 mcg PO DAILY@0800 04/01/17 03/07/21 History Memantine [Namenda] 5 mg PO BID@11/02/19 03/07/21 History Multivitamins, Thera [Multivitamin 1 tab PO DAILY@79911/02/19 03/07/21 History (formulary)] Omeprazole 40 mg PO DAILY@79911/02/19 03/07/21 History atenoloL 25 mg PO DAILY@79911/02/19 03/07/21 History Albuterol Inhaler [Ventolin Hfa 2 puff INHALATION RT-Q4H PRN puff 07/08/20 03/07/21 Rx Inhaler] Ipratropium-Albuterol Nebulize 3 ml INHALATION RT-BID@799,199901/06/21 03/07/21 History [Duoneb 0.5 mg-3 mg/3 ml Soln] Sennosides-Docusate Sodium 1 tab PO DAILY@79901/06/21 03/07/21 History [Senokot-S] Tylenol Gelcaps (Unknown Strength) 2 cap PO BID@799,199901/06/21 03/07/21 History HYDROcodone/APAP 5-325MG [[place] 1 tab PO Q6HR PRN 3 Days #12 tab 01/11/21 03/07/21 Rx 5-325] ALPRAZolam [Xanax] 0.25 mg PO BID@0800,199903/07/21 03/07/21 History Aspirin EC [Ecotrin Low Dose] 81 mg PO DAILY@0800 03/07/21 03/07/21 History Fluconazole [Diflucan] 100 mg PO DAILY@0800 03/07/21 03/07/21 History Raloxifene HCl 60 mg PO DAILY@0800 03/07/21 03/07/21 History Silver Sulfadiazine [SSD 1% Cream] 1 applic TOPICAL BID@799,199903/07/21 03/07/21 History Tylenol Gelcaps (Unknown Strength) 2 cap PO Q8H PRN 03/07/21 03/07/21 History traMADol HCL 50 mg PO TID@0000,0800,1600 03/07/21 03/07/21 History Allergies Allergy/AdvReac Type Severity Reaction Status Date / Time cefuroxime Allergy Intermediate Hives Verified 03/07/21 16:41 Physical Exam Vitals: Vital Signs Temp Pulse Resp BP Pulse Ox 03/09/21 07:00 97.6 F 82 17 146/78 97 03/09/21 02:00 98.0 F 93 16 99/52 100 03/08/21 20:00 98.0 F 100 18 131/81 99 03/08/21 15:00 97.4 F L 108 H 16 148/79 97 Intake and Output 03/08/21 03/09/21 03/09/21 22:59 06:59 14:59 Intake Total 0 220 Output Total 1 Balance -1 220 Intake: Oral 0 220 Output: Stool 1 Other: Voiding Method Diaper Diaper Incontinent Incontinent # Voids 1 2 # Bowel Movements 1 2 Results CBC & Chem 7: 03/08/21 05:06 03/08/21 05:06 Labs: Abnormal Lab Results - Last 24 Hours (Table) 03/08/21 03/08/21 03/08/21 Range/Units 05:06 05:06 05:06 Metamyelocytes % 1 H (0-0) % Myelocytes % 3 H (0-0) % Neutrophils # (Manual) 11.48 H (2.00-8.90) X 10*3/uL Lymphocytes # (Manual) 0.12 L (0.90-5.00) X 10*3/uL Monocytes # (Manual) 0.12 L (0.20-1.00) X 10*3/uL Eosinophils # (Manual) 0 L (0.04-0.35) X 10*3/uL Carbon Dioxide 11.9 L (20.0-27.5) mmol/L Creatinine 0.5 L (0.6-1.5) mg/dL BUN/Creatinine Ratio 24.00 H (12.00-20.00) Ratio Calcium 7.8 L (8.7-10.3) mg/dL Total Protein 5.4 L (6.2-8.2) g/dL Albumin 2.3 L (3.8-4.9) g/dL Albumin/Globulin Ratio 0.74 L (1.60-3.17) g/dL Vitamin B12 1450.0 H (200.0-944.0) pg/mL Microbiology - Last 24 Hours (Table) 03/07/21 16:24 Urine Culture - Final Urine,Clean Catch Sherita albicans 03/07/21 16:29 Blood Culture - Preliminary Blood No Growth after 24 hours 03/07/21 16:29 Blood Culture - Preliminary Blood No Growth after 24 hours Assessment and Plan (1) Pressure ulcer of coccygeal region, stage 2 Current Visit: Yes Status: Acute Code(s): L89.152 - PRESSURE ULCER OF SACRAL REGION, STAGE 2 SNOMED Code(s): 957958168 (2) Pressure ulcer of right heel, unstageable Current Visit: Yes Status: Acute Code(s): L89.610 - PRESSURE ULCER OF RIGHT HEEL, UNSTAGEABLE SNOMED Code(s): 208759179
[2021-03-09] MEDS: LEVOFLOXACIN 500MG-D5W PMX 500 MG in DEXTROSE/WATER 1 100ML.BAG IVPB SCH (17:02)
--- NOTE | 2021-03-09 17:06 | P.PN ---
Subjective Progress Note Date: 03/09/21 I seen the patient at bedside and per nurse she is following command but has dementia. No neurological events per nurse. Objective - Vital Signs Vital signs: Vital Signs Temp 97.6 F 03/09/21 07:00 Pulse 82 03/09/21 07:00 Resp 17 03/09/21 07:00 BP 146/78 03/09/21 07:00 Pulse Ox 97 03/09/21 07:00 Intake & Output 03/08/21 03/09/21 03/09/21 18:59 06:59 18:59 Intake Total 110 220 Output Total 1 Balance 109 220 Weight 47.627 kg Intake: IV 10 Invasive Line 1 10 Oral 100 220 Output: Stool 1 Other: Voiding Method Diaper Diaper Incontinent Incontinent # Voids 1 2 # Bowel Movements 1 2 - Exam GENERAL: The patient is lying in bed and is not in acute distress. NEUROLOGICAL: Higher mental function: The patient is awake, alert, oriented to self. Upon asking her if she is in the hospital she said yes. She stated she does not know month or year. She is able to name pen and glasses correctly. Patient is following few simple commands (thumbs up, sticking her tongue out, smiling). No neglect. It does not appear dementia but limited from limited exam. Cranial nerves: The pupils are round, equal and reactive to light. Visual bui are full to confrontation throughout. Extraocular movement is intact no nystagmus is noted. No facial weakness noted and has symetrical smile. Has temporal atrophy bilaterally. Hearing is very hard of hearing to bilateral hand rubs. Tongue is midline and moved [id number] without any difficulty. No dysarthria is noted. Rest of cranial nerves are hard to assess because of patient's cooperation. Motor: The strength is able to raise bilateral upper extremity above gravity. 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 Able to dorsiflex and plantarflex her ankles bilaterally antigravity. She attempt to minimally bend her knees. It seems has atrophy in bilateral lower extremities. Cerebellum: Normal finger to nose over the left. Sensation: Sensation is hard to assess. Reflexes (right/left): 1+ throughout (has amputation of the right proximal forearm). Plantars are mute bilaterally. WORK-UP: Vitamin B12: 1450 Serum Folate >20.0 TSH: 2.520 Lazar virus is are not detected. Urine culture: Sherita albicans Blood cultures No growth after 24 hours. Sodium is 135, creatinine is 0.58, calcium is 8.2, magnesium is 2.0, AST of 27, ALT of 14. Urine analysis is the ketone is trace, nitrate was negative, leukocyte esterase large, urine white blood cells more than 182, urine 1 blood cell clumps is many. CT of the head is reported as cerebral atrophy and chronic small vessel ischemia. No acute intracranial abnormality. I personally reviewed the CT of the head and there is no acute or subacute ischemia and there is no intraparenchymal hemorrhage that's appreciable. - Labs CBC & Chem 7: 03/08/21 05:06 03/08/21 05:06 Labs: Abnormal Lab Results - Last 24 Hours (Table) 03/08/21 03/08/21 03/08/21 Range/Units 05:06 05:06 05:06 Metamyelocytes % 1 H (0-0) % Myelocytes % 3 H (0-0) % Neutrophils # (Manual) 11.48 H (2.00-8.90) X 10*3/uL Lymphocytes # (Manual) 0.12 L (0.90-5.00) X 10*3/uL Monocytes # (Manual) 0.12 L (0.20-1.00) X 10*3/uL Eosinophils # (Manual) 0 L (0.04-0.35) X 10*3/uL Carbon Dioxide 11.9 L (20.0-27.5) mmol/L Creatinine 0.5 L (0.6-1.5) mg/dL BUN/Creatinine Ratio 24.00 H (12.00-20.00) Ratio Calcium 7.8 L (8.7-10.3) mg/dL Total Protein 5.4 L (6.2-8.2) g/dL Albumin 2.3 L (3.8-4.9) g/dL Albumin/Globulin Ratio 0.74 L (1.60-3.17) g/dL Vitamin B12 1450.0 H (200.0-944.0) pg/mL Microbiology - Last 24 Hours (Table) 03/07/21 16:24 Urine Culture - Final Urine,Clean Catch Sherita albicans 03/07/21 16:29 Blood Culture - Preliminary Blood No Growth after 24 hours 03/07/21 16:29 Blood Culture - Preliminary Blood No Growth after 24 hours Assessment and Plan Assessment: Altered mental status due to likely septic encephalopathy (urosepsis)--improving. Has underlying dementia Acute Urinary tract infection Congenital right upper extremity defect COVID-19 pneumonia about 1-2 month ago History of breast cancer status post right mastectomy 1982 Metastatic breast cancer to bone (cervical and lumbar) post radiation in 1990 History of heart failure Hypothyroidism History of urinary tract infections Plan: An EEG is not warranted. Infection disease team is consulted. Patient is on Levofloxain and not sure if that is best drug in elderly patient (since can cause tendopathy). Will defer the antibiotic regiment to I.D. them. We'll defer the rest of the medical management to the primary team. The plan is discussed with the patient's nurse. There is no further work-up. Best Piedra MD Neuro-Hospitalist Time with Patient: Less than 30
--- NOTE | 2021-03-10 01:34 | PN ---
PROGRESS NOTE DATE OF SERVICE: 03/09/2021 REASON FOR FOLLOWUP: Urinary tract infection. INTERVAL HISTORY: The patient is afebrile. The patient is more awake and alert today, breathing comfortably. Denied any chest pain. No cough No abdominal pain, no diarrhea. PHYSICAL EXAMINATION: Blood pressure 105/62 with a pulse of 104, temperature 98.3. She is 96% on room air. General description is an elderly female lying in bed in no distress. Respiratory system: Unlabored breathing, clear to auscultation anteriorly. Heart S1, S2. Regular rate and rhythm. Abdomen soft, no tenderness. LABS: No new labs have been obtained today. Urine showing Sherita albicans. DIAGNOSTIC IMPRESSION AND PLAN: 1. Patient admitted to the hospital with increasing confusion concerning for a urinary tract infection. Urine showing Sherita albicans. The patient is covered with Diflucan. 2. Patient with sacral pressure ulcer currently with no cellulitis. Local care with Enma. MMODL / IJN: [id number] /
--- NOTE | 2021-03-10 05:10 | HP ---
HISTORY AND PHYSICAL HISTORY OF PRESENT ILLNESS: 85-year-old white female past medical history of dementia, COPD, supraclavicular disease, cancer, came into the emergency room with mild confusion. She has had Covid for the last 4 months. She had severe delirium and dementia worsening. Recently she has had increasing confusion and was thought to want to be placed in hospice. She was sent to the emergency room per my recommendations. She was found to have severe renal insufficiency, positive culture and lots of bacteria and leukocytes in the urine. She is started on IV antibiotics for urosepsis with metabolic encephalopathy dehydration. She also has a pressure ulceration of the sacral area and lower extremity. PAST MEDICAL HISTORY: See old chart. SURGICAL HISTORY: See old chart. PHYSICAL EXAMINATION: Vital signs stable. She is giving appropriate answers. She looks weak, fatigued, cachectic. SKIN: Dry skin turgor with dry mucous membranes. LUNGS: Clear. HEART: S1, S2. ABDOMEN: Soft, nontender. EXTREMITIES: No cyanosis, clubbing, edema. She has stage III ulcer, sacral area. Minimal slough, redness. NEUROLOGIC: Cranial nerves are intact. ASSESSMENT: 1. Urinary tract infection, urosepsis. 2. Pressure ulcer, sacral ulcer. Continue with Levaquin. Wait for cultures to be done. Local wound to the sacral area with Medihoney. Gentle IV fluids. Continue current treatment. Have neurology see for worsening dizziness. Prognosis guarded. MMVALENTINOL / MIKEYN: [id number] /
--- NOTE | 2021-03-10 05:19 | PN ---
PROGRESS NOTE 85-year-old white female with urosepsis, metabolic encephalopathy secondary to UTI and urosepsis. The patient is more alert. She is going to start Diflucan for possible Sherita albicans in the UTI. She is also on subcu heparin, Levaquin, Synthroid, Namenda, Protonix, Evista, Ventolin nebulizer, Tenormin for blood pressure control, baby aspirin. PROGNOSIS: Guarded. Once UTI is treated, she can be sent home with rehydration. Dietary consult is pending. MMODL / IJN: [id number] /
[2021-03-10] MEDS: FLUCONAZOLE IN NACL,ISO-OSM 100 MG in SALINE 1 50ML.BAG IVPB SCH (08:54)
[2021-03-10] MEDS: PANTOPRAZOLE 40 MG TABLET PO SCH (08:55)
[2021-03-10] MEDS: atenoloL 25 MG TAB PO SCH (08:55)
[2021-03-10] MEDS: RALOXIFENE 60 MG TAB PO SCH (08:55)
[2021-03-10] MEDS: MULTIVITAMINS, THERA 1 EACH TAB PO SCH (08:55)
[2021-03-10] MEDS: MEMANTINE 5 MG TAB PO SCH ×2 (08:55→20:27)
[2021-03-10] MEDS: SENNOSIDES-DOCUSATE SODIUM 1 EACH TAB PO SCH (08:55)
[2021-03-10] MEDS: LEVOTHYROXINE 50 MCG TAB PO SCH (08:55)
[2021-03-10] MEDS: HEPARIN SODIUM,PORCINE/PF 5,000 UNIT/0.5 ML SYRINGE SQ SCH ×2 (08:55→20:27)
[2021-03-10] MEDS: ASPIRIN 81 MG PO SCH (08:55)
[2021-03-10 15:11] VITALS: RESP 18
--- NOTE | 2021-03-10 15:49 | PN ---
PROGRESS NOTE DATE OF SERVICE: 03/10/2021 REASON FOR FOLLOWUP: 1. Urinary tract infection. 2. Sacral pressure ulcer. INTERVAL HISTORY: Patient is afebrile. The patient is currently breathing comfortably on room air. The patient is hemodynamically stable specifically. Denies any complaints. No vomiting, diarrhea or any other changes reported by the nursing staff. PHYSICAL EXAMINATION: Blood pressure is 126/83, pulse 83, temperature 98.4. She is 100% on room air. General description is an elderly female lying in bed in no distress. Respiratory system: Unlabored breathing, clear to auscultation anteriorly. Heart S1, S2. Regular rate and rhythm. Abdomen soft, no tenderness. LABS: No new labs have been obtained today. Urine showing Sherita albicans. DIAGNOSTIC IMPRESSION AND PLAN: 1. Patient admitted to hospital with confusion concerning for urinary tract infection. Urine showing Sherita albicans covered with oral Diflucan. Levaquin will be discontinued. 2. Patient with sacral pressure ulcer. Local care with Medihoney, moist dressing, keep the area off the pressure. MMODL / IJN: [id number] /
--- NOTE | 2021-03-11 00:02 | PN ---
PROGRESS NOTE 85 -year-old white female admitted with UTI positive for fungus for which Diflucan orally has been ordered, dehydration and malnutrition were addressed also. Home medicines were restarted. Patient was eating 75% of her food with assistance only. Discussed with the family. She will need a place where they feed her personally . She is not eating if she has to eat by herself but mentally she will answer questions appropriately. Cardiovascular: S1, S2. Lungs clear. GI soft. Hematology negative Homans. ASSESSMENT: 1. Urinary tract infection secondary to Sherita dehydration. 2. Hypothyroidism. 3. Foot, hypertension, asthma. Continue current treatments. Follow up in next 24 to 48 hours. Start on fluconazole. Possible discharge home soon. Discussed case with the family. Possibly discharge home in the morning. MMODL / IJN: [id number] /
[2021-03-11 07:53] VITALS: BP 154/57; PULSE 84; TEMP 97.9
[2021-03-11] MEDS: FLUCONAZOLE IN NACL,ISO-OSM 100 MG in SALINE 1 50ML.BAG IVPB SCH (09:19)
[2021-03-11] MEDS: ASPIRIN 81 MG PO SCH (09:20)
[2021-03-11] MEDS: MULTIVITAMINS, THERA 1 EACH TAB PO SCH ×2 (09:20→09:21)
[2021-03-11] MEDS: MEMANTINE 5 MG TAB PO SCH (09:20)
[2021-03-11] MEDS: RALOXIFENE 60 MG TAB PO SCH (09:20)
[2021-03-11] MEDS: PANTOPRAZOLE 40 MG TABLET PO SCH (09:20)
[2021-03-11] MEDS: HEPARIN SODIUM,PORCINE/PF 5,000 UNIT/0.5 ML SYRINGE SQ SCH (09:20)
[2021-03-11] MEDS: atenoloL 25 MG TAB PO SCH (09:20)
[2021-03-11] MEDS: LEVOTHYROXINE 50 MCG TAB PO SCH (09:20)
[2021-03-11] MEDS: SENNOSIDES-DOCUSATE SODIUM 1 EACH TAB PO SCH (09:21)
--- NOTE | 2021-03-14 09:18 | CDI ---
Documentation Clarification Form Date: 03/14/2021 09:03:00 AM From: Concepción Ceja Admit Date: 03/09/2021 08:12:00 AM Patient Name: Emely Whiting Visit Number: [id number] Discharge Date: 03/11/2021 11:35:00 AM ATTENTION: The Clinical Documentation Specialists (CDI) and [facility] Coding Staff appreciate your assistance in clarifying documentation. Please respond to the clarification below the line at the bottom and electronically sign. The CDI & [facility] Coding staff will review the response and follow-up if needed. Please note: Queries are made part of the Legal Health Record. If you have any questions, please contact the author of this message via ITS. Dr. Victor Hugo Zhong Per 03/08 consult Altered mental status due to likely septic encephalopathy urosepsis. Per PN 03/09 AMS due likely to septic enchalopathy. Please clarify if patient had sepsis due to candidiasis UTI or was sepsis ruled out. Additional clarification regarding the etiology/cause of the clinical indicators is requested. History/Risk Factors: AMS, candidiasis UTI, pressure ulcers, metabolic encephalopathy Clinical Indicators: WBC: 11.9 - 12.21 Lactic acid: 1.5 Blood cultures: No growth Vitals signs: 98.5 F, 80 bpm, 18, 92/54 98% RA Treatment: Levaquin Diflucan ID Consult: underlying component of acute UTI Antibiotics: Levaq;uin In your professional opinion, please clarify if these findings signify one of the following conditions: [ ] Sepsis POA due to candidiasis UTI [ ] Sepsis, Not POA [ ] Sepsis ruled out [ ] Severe Sepsis with organ failure [ ] Other, please specify [ ] Unable to determine SIRS Criteria: 2 or more of the following may indicate SIRS -Temperature < 96.8F (36C) or > 101.0F (38.3C) -Heart Rate > 90 bpm -Respiratory Rate > 20 breaths/min or PaCO2 < 32 mmHg -White Blood Cell Count > 12,000 or < 4,000 cells/mm3 or > 10% bands MTDD
--- NOTE | 2021-03-21 12:28 | CDI ---
Documentation Clarification Form Date: 03/14/2021 09:03:00 AM From: Concepción Ceja Admit Date: 03/09/2021 08:12:00 AM Patient Name: Emely Whiting Visit Number: [id number] Discharge Date: 03/11/2021 11:35:00 AM ATTENTION: The Clinical Documentation Specialists (CDI) and [facility] Coding Staff appreciate your assistance in clarifying documentation. Please respond to the clarification below the line at the bottom and electronically sign. The CDI & [facility] Coding staff will review the response and follow-up if needed. Please note: Queries are made part of the Legal Health Record. If you have any questions, please contact the author of this message via ITS. Dr. Victor Hugo Zhong Per 03/08 consult Altered mental status due to likely septic encephalopathy urosepsis. Per PN 03/09 AMS due likely to septic enchalopathy. Please clarify if patient had sepsis due to candidiasis UTI or was sepsis ruled out. Additional clarification regarding the etiology/cause of the clinical indicators is requested. History/Risk Factors: AMS, candidiasis UTI, pressure ulcers, metabolic encephalopathy Clinical Indicators: WBC: 11.9 - 12.21 Lactic acid: 1.5 Blood cultures: No growth Vitals signs: 98.5 F, 80 bpm, 18, 92/54 98% RA Treatment: Levaquin Diflucan ID Consult: underlying component of acute UTI Antibiotics: Levaq;uin In your professional opinion, please clarify if these findings signify one of the following conditions: [ ] Sepsis POA due to candidiasis UTI [ ] Sepsis, Not POA [ ] Sepsis ruled out [ ] Severe Sepsis with organ failure [ ] Other, please specify [ ] Unable to determine SIRS Criteria: 2 or more of the following may indicate SIRS -Temperature < 96.8F (36C) or > 101.0F (38.3C) -Heart Rate > 90 bpm -Respiratory Rate > 20 breaths/min or PaCO2 < 32 mmHg -White Blood Cell Count > 12,000 or < 4,000 cells/mm3 or > 10% bands MTDD
--- NOTE | 2021-03-24 10:26 | PN ---
PROGRESS NOTE ADDENDUM: Sepsis due to jayne urinary tract infection. MMODL / IJN: [id number] /
== END 2021-03-11 11:35 | disposition home health service (06) | DRG 871 ==
LOC: EC 15:18 → 6NMEDSUR 18:16 → OBSVTOIN 03-09 08:12
PROVIDERS: ADMIT Family Medicine; ATTEND Family Medicine
DX: B37.7 Candidal sepsis (principal); G93.41 Metabolic encephalopathy; E46 Unspecified protein-calorie malnutrition; Z68.1 Body mass index [BMI] 19.9 or less, adult; C79.51 Secondary malignant neoplasm of bone; B37.49 Other urogenital candidiasis; R65.20 Severe sepsis without septic shock; E03.9 Hypothyroidism, unspecified; E86.0 Dehydration; F03.90 Unspecified dementia, unspecified severity, without behavioral disturbance, psychotic disturbance, mood disturbance, and anxiety; I11.0 Hypertensive heart disease with heart failure; I50.9 Heart failure, unspecified; J44.9 Chronic obstructive pulmonary disease, unspecified; L89.152 Pressure ulcer of sacral region, stage 2; L89.610 Pressure ulcer of right heel, unstageable; K21.9 Gastro-esophageal reflux disease without esophagitis; Q68.8 Other specified congenital musculoskeletal deformities; K44.9 Diaphragmatic hernia without obstruction or gangrene; Z20.822 Contact with and (suspected) exposure to COVID-19; Z86.16 Personal history of COVID-19; Z66 Do not resuscitate; Z79.82 Long term (current) use of aspirin; Z79.890 Hormone replacement therapy; Z79.899 Other long term (current) drug therapy; Z80.3 Family history of malignant neoplasm of breast; Z85.3 Personal history of malignant neoplasm of breast; Z87.01 Personal history of pneumonia (recurrent); Z87.440 Personal history of urinary (tract) infections; Z88.1 Allergy status to other antibiotic agents; Z90.11 Acquired absence of right breast and nipple; Z92.3 Personal history of irradiation; Z74.01 Bed confinement status; Z98.890 Other specified postprocedural states; Z82.49 Family history of ischemic heart disease and other diseases of the circulatory system; Z98.42 Cataract extraction status, left eye; Z98.41 Cataract extraction status, right eye; Z87.798 Personal history of other (corrected) congenital malformations; Z89.111 Acquired absence of right hand
CPT/HCPCS: 36415; 70450; 71046; 80053; 81001; 82607; 82746; 83605; 83735; 84443; 84484; 85025; 85610; 85730; 87040; 87086; 87635; 93005; 96360; 99285

== ENCOUNTER 2021-05-26 18:26 | Inpatient (IN) | payer MEDICARE ==
[2021-05-26 19:56] LABS: Basophils # (A) 0.1 k/uL (0-0.2); Basophils % (A) 1 %; Eosinophils # (A) 0.3 k/uL (0-0.7); Eosinophils % (A) 5 %; HCT 31.5 % (34.0-46.0); Hypochromasia Slight; Lymphocytes # (A) 2.2 k/uL (1.0-4.8); Lymphocytes % (A) 33 %; MCH 29.6 pg (25.0-35.0); MCHC 31.7 g/dL (31.0-37.0); MCV 93.3 fL (80.0-100.0); Mean Platelet Volume 6.9; Monocytes # (A) 0.4 k/uL (0-1.0); Monocytes % (A) 6 %; Neutrophils # (A) 3.5 k/uL (1.3-7.7); Neutrophils % (A) 53 %; Platelet Count 410 k/uL (150-450); RBC 3.37 m/uL (3.80-5.40); RDW 14.8 % (11.5-15.5); WBC 6.7 k/uL (3.8-10.6)
[2021-05-26 19:59] LABS: Albumin 2.5 g/dL (3.5-5.0); Calcium 8.1 mg/dL (8.4-10.2); Potassium 3.8 mmol/L (3.5-5.1); Total Bilirubin 0.3 mg/dL (0.2-1.3)
[2021-05-26 20:08] LABS: Prothrombin Time 10.5 sec (9.0-12.0)
[2021-05-26] MEDS ORDERED: NALOXONE 0.4 MG/ML 1 ML VIAL IV PRN (20:29)
--- NOTE | 2021-05-26 20:33 | ED ---
General Adult HPI - General Chief complaint: GI Bleed Stated complaint: Rectal Bleed Time Seen by Provider: 05/26/21 18:55 Source: patient, EMS, RN notes reviewed, old records reviewed Mode of arrival: EMS Limitations: altered mental status, physical limitation - History of Present Illness Initial comments: 86-year-old female who presents emergency department for evaluation of bright red rectal bleeding. Staff at the facility where the patient resides had noted significant amount of bright red blood. There are unable to quantify this. This occurred at approximate 5 PM. Patient is at her baseline mental status and unable to give a detailed history. There is no reported anticoagulation. Patient denies pain complaints. - Related Data Home Medications Medication Instructions Recorded Confirmed Levothyroxine Sodium [Synthroid] 50 mcg PO DAILY@0800 04/01/17 05/26/21 Multivitamins, Thera [Multivitamin 1 tab PO DAILY@79911/02/19 05/26/21 (formulary)] Omeprazole 40 mg PO DAILY@79911/02/19 05/26/21 atenoloL 25 mg PO DAILY@79911/02/19 05/26/21 Ipratropium-Albuterol Nebulize 3 ml INHALATION RT-BID@01/06/21 05/26/21 [Duoneb 0.5 mg-3 mg/3 ml Soln] Sennosides-Docusate Sodium 1 tab PO DAILY@79901/06/21 05/26/21 [Senokot-S] Aspirin EC [Ecotrin Low Dose] 81 mg PO DAILY@79903/07/21 05/26/21 Fluconazole [Diflucan] 100 mg PO DAILY@79903/07/21 05/26/21 Silver Sulfadiazine [SSD 1% Cream] 1 applic TOPICAL BID@799,199903/07/21 05/26/21 Acetaminophen [Tylenol] 650 mg PO BID@799,199905/26/21 05/26/21 Acetaminophen [Tylenol] 650 mg PO Q8H PRN 05/26/21 05/26/21 Raloxifene [Evista] 60 mg PO DAILY@79905/26/21 05/26/21 Previous Rx's Medication Instructions Recorded Albuterol Inhaler [Ventolin Hfa 2 puff INHALATION RT-Q4H PRN puff 07/08/20 Inhaler] HYDROcodone/APAP 5-325MG [[place] 1 tab PO Q6HR PRN 3 Days #12 tab 01/11/21 5-325] Allergies Allergy/AdvReac Type Severity Reaction Status Date / Time cefuroxime Allergy Intermediate Hives Verified 05/26/21 19:22 Review of Systems ROS Statement: Those systems with pertinent positive or pertinent negative responses have been documented in the HPI. ROS Other: All systems not noted in ROS Statement are negative. 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 Past Anesthesia/Blood Transfusion Reactions: No Reported Reaction Past Psychological History: No Psychological Hx Reported Smoking Status: Never smoker Past Alcohol Use History: None Reported Past Drug Use History: None Reported - Past Family History Father Additional Family Medical History / Comment(s): heart disease. Mother Additional Family Medical History / Comment(s): heart disease. Sister(s) Family Medical History: Cancer Additional Family Medical History / Comment(s): 3 SISTERS WITH BREAST CA General Exam Limitations: altered mental status, physical limitation General appearance: alert, in no apparent distress Head exam: Present: atraumatic, normocephalic Eye exam: Present: normal appearance, PERRL ENT exam: Present: normal exam Neck exam: Present: normal inspection. Absent: tenderness, meningismus Respiratory exam: Present: normal lung sounds bilaterally. Absent: respiratory distress, wheezes Cardiovascular Exam: Present: regular rate, normal rhythm GI/Abdominal exam: Present: soft. Absent: distended, tenderness, guarding, rebound Rectal exam: Absent: black stool, bloody stool, hemorrhoids Extremities exam: Present: normal inspection. Absent: tenderness Neurological exam: Present: alert, CN II-XII intact. Absent: motor sensory deficit Psychiatric exam: Present: normal affect, normal mood Skin exam: Present: warm, dry, intact. Absent: cyanosis, diaphoretic Course Vital Signs 05/26/21 05/26/21 18:31 19:48 Temperature 97.9 F Pulse Rate 78 82 Respiratory 16 16 Rate Blood Pressure 108/56 105/98 O2 Sat by Pulse 99 100 Oximetry Medical Decision Making - Medical Decision Making 86-year-old female with 2 episodes of bright red rectal bleeding prior to arrival. There is no further bleeding while emergency department. Her hemoglobin is 10. Her vital signs are stable. Laboratory testing is otherwise unremarkable. She will be observed overnight for serial hemoglobins and consultation with general surgery. I did discuss case with Dr. Zhong who will admit. - Lab Data Result diagrams: 05/26/21 19:38 05/26/21 19:38 Lab Results 05/26/21 05/26/21 05/26/21 Range/Units 19:38 19:38 19:38 WBC 6.7 (3.8-10.6) k/uL RBC 3.37 L (3.80-5.40) m/uL Hgb 10.0 L (11.4-16.0) gm/dL Hct 31.5 L (34.0-46.0) % MCV 93.3 (80.0-100.0) fL MCH 29.6 (25.0-35.0) pg MCHC 31.7 (31.0-37.0) g/dL RDW 14.8 (11.5-15.5) % Plt Count 410 (150-450) k/uL MPV 6.9 Neutrophils % 53 % Lymphocytes % 33 % Monocytes % 6 % Eosinophils % 5 % Basophils % 1 % Neutrophils # 3.5 (1.3-7.7) k/uL Lymphocytes # 2.2 (1.0-4.8) k/uL Monocytes # 0.4 (0-1.0) k/uL Eosinophils # 0.3 (0-0.7) k/uL Basophils # 0.1 (0-0.2) k/uL Hypochromasia Slight PT 10.5 (9.0-12.0) sec INR 1.0 (<1.2) APTT 22.0 (22.0-30.0) sec Sodium 137 (137-145) mmol/L Potassium 3.8 (3.5-5.1) mmol/L Chloride 109 H (98-107) mmol/L Carbon Dioxide 23 (22-30) mmol/L Anion Gap 5 mmol/L BUN 17 (7-17) mg/dL Creatinine 0.71 (0.52-1.04) mg/dL Est GFR (CKD-EPI)AfAm 88 (>60 ml/min/1.73 sqM) Est GFR (CKD-EPI)NonAf 77 (>60 ml/min/1.73 sqM) Glucose 147 H (74-99) mg/dL Calcium 8.1 L (8.4-10.2) mg/dL Magnesium 2.0 (1.6-2.3) mg/dL Total Bilirubin 0.3 (0.2-1.3) mg/dL AST 19 (14-36) U/L ALT 10 (4-34) U/L Alkaline Phosphatase 61 (38-126) U/L Total Protein 6.0 L (6.3-8.2) g/dL Albumin 2.5 L (3.5-5.0) g/dL Blood Type Blood Type Recheck Bld Type Recheck Status Antibody Screen Spec Expiration Date 05/26/21 Range/Units 19:38 WBC (3.8-10.6) k/uL RBC (3.80-5.40) m/uL Hgb (11.4-16.0) gm/dL Hct (34.0-46.0) % MCV (80.0-100.0) fL MCH (25.0-35.0) pg MCHC (31.0-37.0) g/dL RDW (11.5-15.5) % Plt Count (150-450) k/uL MPV Neutrophils % % Lymphocytes % % Monocytes % % Eosinophils % % Basophils % % Neutrophils # (1.3-7.7) k/uL Lymphocytes # (1.0-4.8) k/uL Monocytes # (0-1.0) k/uL Eosinophils # (0-0.7) k/uL Basophils # (0-0.2) k/uL Hypochromasia PT (9.0-12.0) sec INR (<1.2) APTT (22.0-30.0) sec Sodium (137-145) mmol/L Potassium (3.5-5.1) mmol/L Chloride (98-107) mmol/L Carbon Dioxide (22-30) mmol/L Anion Gap mmol/L BUN (7-17) mg/dL Creatinine (0.52-1.04) mg/dL Est GFR (CKD-EPI)AfAm (>60 ml/min/1.73 sqM) Est GFR (CKD-EPI)NonAf (>60 ml/min/1.73 sqM) Glucose (74-99) mg/dL Calcium (8.4-10.2) mg/dL Magnesium (1.6-2.3) mg/dL Total Bilirubin (0.2-1.3) mg/dL AST (14-36) U/L ALT (4-34) U/L Alkaline Phosphatase (38-126) U/L Total Protein (6.3-8.2) g/dL Albumin (3.5-5.0) g/dL Blood Type A Positive Blood Type Recheck A Pos Bld Type Recheck Status No Antibody Screen NEGATIVE Spec Expiration Date 05/29/2021 - 2337 Disposition Clinical Impression: Dementia, GI bleed Disposition: ADMITTED IP TO THIS [facility] Condition: Stable Is patient prescribed a controlled substance at d/c from ED?: No Referrals: Victor Hugo Zhong MD [Primary Care Provider] - 1-2 days Decision to Admit Reason: Admit from EC Decision Date: 05/26/21 Decision Time: 20:33
[2021-05-26] MEDS: SODIUM CHLORIDE 0.9% 1,000 ML IV SCH (21:01)
--- NOTE | 2021-05-27 09:46 | P.GSCN ---
History of Present Illness Consult date: 05/27/21 Reason for Consult: GI bleeding History of present illness: 86-year-old female came from the halfway with evidenced bright red blood per rectum. This occurred yesterday around 5 PM. No reported bleeding per nursing staff overnight. Patient denies pain. Patient is confused and not able to provide any history. Surgical history includes previous repair large hiatal hernia done laparoscopically 2017. No documented endoscopy on the computer. 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 Past Anesthesia/Blood Transfusion Reactions: No Reported Reaction Past Psychological History: No Psychological Hx Reported Additional Psychological History / Comment(s): Pt resides at [facility] in [place]. She was using a walker until recently. She is normally oriented to person/place. Smoking Status: Unknown if ever smoked Past Alcohol Use History: None Reported Past Drug Use History: None Reported - Past Family History Father Additional Family Medical History / Comment(s): heart disease. Mother Additional Family Medical History / Comment(s): heart disease. Sister(s) Family Medical History: Cancer Additional Family Medical History / Comment(s): 3 SISTERS WITH BREAST CA Medications and Allergies Home Medications Medication Instructions Recorded Confirmed Type Levothyroxine Sodium [Synthroid] 50 mcg PO DAILY@0800 04/01/17 05/26/21 History Multivitamins, Thera [Multivitamin 1 tab PO DAILY@0811/02/19 05/26/21 History (formulary)] Omeprazole 40 mg PO DAILY@79911/02/19 05/26/21 History atenoloL 25 mg PO DAILY@79911/02/19 05/26/21 History Albuterol Inhaler [Ventolin Hfa 2 puff INHALATION RT-Q4H PRN puff 07/08/20 05/26/21 Rx Inhaler] Ipratropium-Albuterol Nebulize 3 ml INHALATION RT-BID@08,199901/06/21 05/26/21 History [Duoneb 0.5 mg-3 mg/3 ml Soln] Sennosides-Docusate Sodium 1 tab PO DAILY@79901/06/21 05/26/21 History [Senokot-S] HYDROcodone/APAP 5-325MG [[place] 1 tab PO Q6HR PRN 3 Days #12 tab 01/11/21 05/26/21 Rx 5-325] Aspirin EC [Ecotrin Low Dose] 81 mg PO DAILY@79903/07/21 05/26/21 History Fluconazole [Diflucan] 100 mg PO DAILY@79903/07/21 05/26/21 History Silver Sulfadiazine [SSD 1% Cream] 1 applic TOPICAL BID@799,199903/07/21 05/26/21 History Acetaminophen [Tylenol] 650 mg PO BID@799,199905/26/21 05/26/21 History Acetaminophen [Tylenol] 650 mg PO Q8H PRN 05/26/21 05/26/21 History Raloxifene [Evista] 60 mg PO DAILY@79905/26/21 05/26/21 History Allergies Allergy/AdvReac Type Severity Reaction Status Date / Time cefuroxime Allergy Intermediate Hives Verified 05/26/21 19:22 Surgical - Exam Vital Signs Temp Pulse Resp BP Pulse Ox 97.9 F 78 16 108/56 99 05/26/21 18:31 05/26/21 18:31 05/26/21 18:31 05/26/21 18:31 05/26/21 18:31 Physical exam: General: Elderly somewhat malnourished appearing female HEENT: Normocephalic, sclerae nonicteric Abdomen: Nontender, nondistended Extremities: No edema Neuro: Alert and pleasant Results - Labs 05/26/21 19:38 05/26/21 19:38 Abnormal Lab Results - Last 24 Hours (Table) 05/26/21 05/26/21 Range/Units 19:38 19:38 RBC 3.37 L (3.80-5.40) m/uL Hgb 10.0 L (11.4-16.0) gm/dL Hct 31.5 L (34.0-46.0) % Chloride 109 H (98-107) mmol/L Glucose 147 H (74-99) mg/dL Calcium 8.1 L (8.4-10.2) mg/dL Total Protein 6.0 L (6.3-8.2) g/dL Albumin 2.5 L (3.5-5.0) g/dL Diabetes panel 05/26/21 Range/Units 19:38 Sodium 137 (137-145) mmol/L Potassium 3.8 (3.5-5.1) mmol/L Chloride 109 H (98-107) mmol/L Carbon Dioxide 23 (22-30) mmol/L BUN 17 (7-17) mg/dL Creatinine 0.71 (0.52-1.04) mg/dL Glucose 147 H (74-99) mg/dL Calcium 8.1 L (8.4-10.2) mg/dL AST 19 (14-36) U/L ALT 10 (4-34) U/L Alkaline Phosphatase 61 (38-126) U/L Total Protein 6.0 L (6.3-8.2) g/dL Albumin 2.5 L (3.5-5.0) g/dL Calcium panel 05/26/21 Range/Units 19:38 Calcium 8.1 L (8.4-10.2) mg/dL Albumin 2.5 L (3.5-5.0) g/dL Pituitary panel 05/26/21 Range/Units 19:38 Sodium 137 (137-145) mmol/L Potassium 3.8 (3.5-5.1) mmol/L Chloride 109 H (98-107) mmol/L Carbon Dioxide 23 (22-30) mmol/L BUN 17 (7-17) mg/dL Creatinine 0.71 (0.52-1.04) mg/dL Glucose 147 H (74-99) mg/dL Calcium 8.1 L (8.4-10.2) mg/dL Adrenal panel 05/26/21 Range/Units 19:38 Sodium 137 (137-145) mmol/L Potassium 3.8 (3.5-5.1) mmol/L Chloride 109 H (98-107) mmol/L Carbon Dioxide 23 (22-30) mmol/L BUN 17 (7-17) mg/dL Creatinine 0.71 (0.52-1.04) mg/dL Glucose 147 H (74-99) mg/dL Calcium 8.1 L (8.4-10.2) mg/dL Total Bilirubin 0.3 (0.2-1.3) mg/dL AST 19 (14-36) U/L ALT 10 (4-34) U/L Alkaline Phosphatase 61 (38-126) U/L Total Protein 6.0 L (6.3-8.2) g/dL Albumin 2.5 L (3.5-5.0) g/dL Assessment and Plan (1) GI bleed Narrative/Plan: 78-year-old female with lower GI bleed. Check today's labs. Continue clear liquids. Tentatively plan EGD and colonoscopy Saturday by Dr. Conde. Current Visit: Yes Status: Acute Code(s): K92.2 - GASTROINTESTINAL HEMORRHAGE, UNSPECIFIED SNOMED Code(s): 46124742
[2021-05-27] MEDS ORDERED: ALBUTEROL NEBULIZED 2.5 MG/3 ML INHALATION PRN (12:07)
[2021-05-27] MEDS ORDERED: HYDROcodone/APAP 5-325MG 1 EACH TAB PO PRN (12:07)
[2021-05-27] MEDS ORDERED: NON FORMULARY DRUG (Acetaminophen [Tylenol] 325 MG Capsule) PO PRN (12:07)
[2021-05-27 14:09] LABS: Basophils # (A) 0.12 X 10*3/uL (0.00-0.10); Basophils % (A) 1.6 %; Eosinophils # (A) 0.38 X 10*3/uL (0.04-0.35); Eosinophils % (A) 4.9 %; HCT 28.1 % (37.2-46.3); HGB 8.7 g/dL (12.0-15.0); Immature Grans, Automated 2.2 %; Lymphocytes % (A) 32.3 %; MCV 93.7 fL (80.0-97.0); Mean Platelet Volume 9.4 fL (9.5-12.2); Monocytes # (A) 0.71 X 10*3/uL (0.20-1.00); Monocytes % (A) 9.2 %; NRBC Per 100 WBC 0 /100 WBCS (0.0-0.0); Neutrophils # (A) 3.85 X 10*3/uL (1.80-7.70); Neutrophils % (A) 49.8 %; Platelet Count 335 X 10*3/uL (140-440); RDW 15.3 % (11.5-14.5); WBC 7.73 X 10*3/uL (4.50-10.00)
--- NOTE | 2021-05-27 14:12 | US ---
EXAMINATION TYPE: US pelvic complete DATE OF EXAM: 05/27/2021 COMPARISON: NONE CLINICAL HISTORY: Vaginal bleeding. TECHNIQUE: Transabdominal (TA). Date of LMP: post menopausal EXAM MEASUREMENTS: Uterus: 8.9 x 2.6 x 4.3 cm Endometrial Stripe: 0.4 cm Right Ovary: not identified Left Ovary: not identified 1. Uterus: Anteverted wnl 2. Endometrium: wnl 3. Right Ovary: not identified 4. Left Ovary: not identified 5. Bilateral Adnexa: wnl 6. Posterior cul-de-sac: no free fluid The bladder has thickened harrison and is full of swirling debris. There is a solid component which coul d represent clot or mass. IMPRESSION: Correlate for possible cystitis with abnormal echoes within the bladder as described. Exa m is limited. Uterine size as described.
[2021-05-27] MEDS: SODIUM CHLORIDE 0.9% 1,000 ML IV SCH (16:18)
[2021-05-27] MEDS: IPRATROPIUM-ALBUTEROL 3 ML NEB INHALATION SCH (19:55)
--- NOTE | 2021-05-27 23:21 | HP ---
HISTORY AND PHYSICAL This 86-year-old white male came into the hospital with bright red blood per rectum with GI bleed. She was admitted to the hospital. Nursing thinks it has been coming from the vagina. We are going to get a gynecology consult. History includes repair of a large hiatal hernia and laparoscopy in 2018. Past medical history includes cancer COPD, dementia, hypothyroidism. She has had breast surgery, orthopedic surgery. Family history reviewed . Fourteen-point review of systems otherwise negative. See list. Medications: See list. Temperature 97.9, respiratory rate 16, pulse 78, blood pressure 108/56, O2 99. Cardiovascular S1, S2. Lungs clear. GI soft. Psych fair mood and affect. Pleasant confused. Alert and oriented x3. Labs are reviewed. ASSESSMENT: Gastrointestinal bleed versus vaginal bleed. Possibly get an EGD and colonoscopy and a pelvic ultrasound. Monitor hemoglobin over the weekend. Transfuse if blood goes below 6. Please see further orders. MMODL / IJN: [id number] /
--- NOTE | 2021-05-27 23:47 | PN ---
PROGRESS NOTE This 86-year-old white female was admitted for GI bleeding, possibly cystitis or vaginal bleeding. Pelvic ultrasound was done which showed bladder swelling and inflammation of the bladder wall. Will do UA and urine culture. Check for OB and gynecology recommendations for vaginal bleeding tomorrow. Monitor hemoglobin. Hemoglobin dropped down 2 points since yesterday. Cardiovascular S1-S2. Lungs clear. Prognosis guarded. MMODL / IJN: [id number] /
[2021-05-28] MEDS: SODIUM CHLORIDE 0.9% 1,000 ML IV SCH ×2 (01:19→13:40)
[2021-05-28 05:47] LABS: Bacteria,Urine Many /hpf; RBC,Urine >182 /hpf (0-5); WBC,Urine 87 /hpf (0-5)
[2021-05-28 05:51] LABS: Appearance,Urine Bloody (Clear); Color,Urine Dark Red
[2021-05-28] MEDS: IPRATROPIUM-ALBUTEROL 3 ML NEB INHALATION SCH ×2 (07:48→19:43)
[2021-05-28] MEDS: RALOXIFENE 60 MG TAB PO SCH (08:05)
[2021-05-28] MEDS: LEVOTHYROXINE 50 MCG TAB PO SCH (08:05)
[2021-05-28] MEDS: atenoloL 25 MG TAB PO SCH (08:05)
[2021-05-28] MEDS: PANTOPRAZOLE 40 MG TABLET PO SCH (08:05)
[2021-05-28] MEDS: MULTIVITAMINS, THERA 1 EACH TAB PO SCH (08:05)
[2021-05-28] MEDS: SENNOSIDES-DOCUSATE SODIUM 1 EACH TAB PO SCH (08:12)
[2021-05-28 09:08] LABS: Basophils # (A) 0.09 X 10*3/uL (0.00-0.10); Basophils % (A) 1.2 %; Eosinophils # (A) 0.32 X 10*3/uL (0.04-0.35); Eosinophils % (A) 4.3 %; HCT 26.1 % (37.2-46.3); Immature Grans, Automated 2.2 %; Lymphocytes # (A) 2.07 X 10*3/uL (0.90-5.00); MCH 28.9 pg (27.0-32.0); MCHC 30.7 g/dL (32.0-37.0); MCV 94.2 fL (80.0-97.0); Mean Platelet Volume 9.6 fL (9.5-12.2); Monocytes # (A) 0.65 X 10*3/uL (0.20-1.00); Monocytes % (A) 8.8 %; NRBC Per 100 WBC 0 /100 WBCS (0.0-0.0); Neutrophils % (A) 55.5 %; Platelet Count 323 X 10*3/uL (140-440); RBC 2.77 X 10*6/uL (4.10-5.20); RDW 15.5 % (11.5-14.5); WBC 7.39 X 10*3/uL (4.50-10.00)
[2021-05-28 09:17] LABS: ALT 7 U/L (8-44); AST 11 U/L (13-35); African American GFR (CKD) 100.2 (60.0-200.0); Albumin 2.4 g/dL (3.8-4.9); Albumin/Globulin Ratio 0.84 (1.60-3.17); Alkaline Phosphatase 50 U/L (41-126); BUN/Creat Ratio 18.94 Ratio (12.00-20.00); Blood Urea Nitrogen 9.5 mg/dL (9.0-27.0); Calcium 8.1 mg/dL (8.7-10.3); Carbon Dioxide 21.5 mmol/L (20.0-27.5); Chloride 108 mmol/L (96-109); Globulin 2.9 g/dL (1.6-3.3); Glucose 97 mg/dL (70-110); Non-African American GFR(CKD) 86.4 (60.0-200.0); Potassium 3.8 mmol/L (3.5-5.5); Sodium 138 mmol/L (135-145); Total Bilirubin <0.15 mg/dL (0.30-1.20); Total Protein 5.3 g/dL (6.2-8.2)
--- NOTE | 2021-05-28 11:14 | P.PN ---
Subjective Progress Note Date: 05/28/21 Principal diagnosis: GI bleed Patient without new complaints. Hemoglobin 8.0 today. Per the nursing staff they suspect bleeding is coming either vaginally or from the urethra. She had a urine straight catheterization showing bloody urine. Ultrasound of the pelvis showed some debris in the bladder possibly related to clot. Apparently OB has been consulted to see the patient. Objective - Vital Signs Vital signs: Vital Signs Temp 97.6 F 05/28/21 05:00 Pulse 68 05/28/21 08:01 Resp 18 05/28/21 05:00 BP 101/59 05/28/21 05:00 Pulse Ox 97 05/28/21 05:00 Intake & Output 05/27/21 05/28/21 05/28/21 18:59 06:59 18:59 Intake Total 900 200 Balance 900 200 Weight 56.699 kg Intake: Intake, IV Titration 900 Amount Sodium Chloride 0.9% 1, 900 000 ml @ 75 mls/hr IV . [id number] [facility] Rx#:[id number] Oral 200 Other: Voiding Method Diaper Diaper Diaper Incontinent Incontinent Incontinent # Voids 2 2 1 # Bowel Movements 2 1 - Exam Abdomen: Soft, nontender, nondistended - Labs CBC & Chem 7: 05/28/21 06:29 05/28/21 06:29 Labs: Abnormal Lab Results - Last 24 Hours (Table) 05/27/21 05/28/21 05/28/21 Range/Units 06:53 05:00 06:29 RBC 3.00 L 2.77 L (4.10-5.20) X 10*6/uL Hgb 8.7 L 8.0 L (12.0-15.0) g/dL Hct 28.1 L 26.1 L (37.2-46.3) % MCHC 31.0 L 30.7 L (32.0-37.0) g/dL RDW 15.3 H 15.5 H (11.5-14.5) % MPV 9.4 L (9.5-12.2) fL Immature Gran # 0.17 H 0.16 H (0.00-0.04) X 10*3/uL Eosinophils # 0.38 H (0.04-0.35) X 10*3/uL Basophils # 0.12 H (0.00-0.10) X 10*3/uL Anion Gap (10.00-18.00) mmol/L Creatinine (0.6-1.5) mg/dL Calcium (8.7-10.3) mg/dL Total Bilirubin (0.30-1.20) mg/dL AST (13-35) U/L ALT (8-44) U/L Total Protein (6.2-8.2) g/dL Albumin (3.8-4.9) g/dL Albumin/Globulin Ratio (1.60-3.17) g/dL Urine Appearance Bloody H (Clear) Urine RBC >182 H (0-5) /hpf Urine WBC 87 H (0-5) /hpf Urine Bacteria Many H (None) /hpf 05/28/21 Range/Units 06:29 RBC (4.10-5.20) X 10*6/uL Hgb (12.0-15.0) g/dL Hct (37.2-46.3) % MCHC (32.0-37.0) g/dL RDW (11.5-14.5) % MPV (9.5-12.2) fL Immature Gran # (0.00-0.04) X 10*3/uL Eosinophils # (0.04-0.35) X 10*3/uL Basophils # (0.00-0.10) X 10*3/uL Anion Gap 8.10 L (10.00-18.00) mmol/L Creatinine 0.5 L (0.6-1.5) mg/dL Calcium 8.1 L (8.7-10.3) mg/dL Total Bilirubin <0.15 L (0.30-1.20) mg/dL AST 11 L (13-35) U/L ALT 7 L (8-44) U/L Total Protein 5.3 L (6.2-8.2) g/dL Albumin 2.4 L (3.8-4.9) g/dL Albumin/Globulin Ratio 0.84 L (1.60-3.17) g/dL Urine Appearance (Clear) Urine RBC (0-5) /hpf Urine WBC (0-5) /hpf Urine Bacteria (None) /hpf Assessment and Plan (1) GI bleed Narrative/Plan: Patient admitted with possible GI bleed. Now it looks appears the source of bleeding is mostly from the bladder. Recommend urology evaluation. Monitor hemoglobin. Await gynecology consult. Current Visit: Yes Status: Acute Code(s): K92.2 - GASTROINTESTINAL HEMORRHA GE, UNSPECIFIED SNOMED Code(s): 35970311
--- NOTE | 2021-05-28 12:33 | P.OBCN ---
History of Present Illness Consult date: 05/28/21 Requesting physician: Victor Hugo Zhong Reason for consult: other (Possible postmenopausal bleeding) Chief complaint: Genitourinary bleeding History of present illness: This is an 86-year-old female 4 para 4 who presented from a nursing facility with complaints of bright red bleeding in her diaper starting on 05/26/2021 at around 5 PM. Patient is incontinent and does wear a diaper. At t hat time patient was disoriented and was unable to adequately answer questions. She currently denies any pelvic pain. She states she does have some bleeding when she is urinating. She doesn't recall that she has had any bleeding with bowel movements. Nursing staff states that they think that it is coming from her vagina but they also do notice on straight cath that she has blood in her urine. Pelvic ultrasound was performed yesterday that showed a uterus measuring 8.9 x 2.6 x 4.3 cm with an endometrial thickness of 0.4 cm. No free fluid was noted in the cul-de-sac and neither ovary was visualized. Of note they did state there are thickened bladder harrison and the bladder is full a swirling debris with questionable clot versus mass. Radiologist's impression states possible cystitis. Obstetrical history: Patient states she has had 4 vaginal deliveries and denies any sections or miscarriages. Gynecologic history: Patient denies any history of abnormal Pap smears or STDs. 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 Past Anesthesia/Blood Transfusion Reactions: No Reported Reaction Past Psychological History: No Psychological Hx Reported Additional Psychological History / Comment(s): Pt resides at [facility] in [place]. She was using a walker until recently. She is normally oriented to person/place. Smoking Status: Unknown if ever smoked Past Alcohol Use History: None Reported Past Drug Use History: None Reported - Past Family History Father Additional Family Medical History / Comment(s): heart disease. Mother Additional Family Medical History / Comment(s): heart disease. Sister(s) Family Medical History: Cancer Additional Family Medical History / Comment(s): 3 SISTERS WITH BREAST CA Medications and Allergies Home Medications Medication Instructions Recorded Confirmed Type Levothyroxine Sodium [Synthroid] 50 mcg PO DAILY@0800 04/01/17 05/26/21 History Multivitamins, Thera [Multivitamin 1 tab PO DAILY@79911/02/19 05/26/21 History (formulary)] Omeprazole 40 mg PO DAILY@79911/02/19 05/26/21 History atenoloL 25 mg PO DAILY@79911/02/19 05/26/21 History Albuterol Inhaler [Ventolin Hfa 2 puff INHALATION RT-Q4H PRN puff 07/08/20 05/26/21 Rx Inhaler] Ipratropium-Albuterol Nebulize 3 ml INHALATION RT-BID@01/06/21 05/26/21 History [Duoneb 0.5 mg-3 mg/3 ml Soln] Sennosides-Docusate Sodium 1 tab PO DAILY@79901/06/21 05/26/21 History [Senokot-S] HYDROcodone/APAP 5-325MG [[place] 1 tab PO Q6HR PRN 3 Days #12 tab 01/11/21 05/26/21 Rx 5-325] Aspirin EC [Ecotrin Low Dose] 81 mg PO DAILY@79903/07/21 05/26/21 History Fluconazole [Diflucan] 100 mg PO DAILY@79903/07/21 05/26/21 History Silver Sulfadiazine [SSD 1% Cream] 1 applic TOPICAL BID@03/07/21 05/26/21 History Acetaminophen [Tylenol] 650 mg PO BID@05/26/21 05/26/21 History Acetaminophen [Tylenol] 650 mg PO Q8H PRN 05/26/21 05/26/21 History Raloxifene [Evista] 60 mg PO DAILY@79905/26/21 05/26/21 History Allergies Allergy/AdvReac Type Severity Reaction Status Date / Time cefuroxime Allergy Intermediate Hives Verified 05/26/21 19:22 Exam Osteopathic Statement: *. No significant issues noted on an osteopathic structural exam other than those noted in the History and Physical/Consult. Vital Signs Temp Pulse Pulse Pulse Resp BP Pulse Ox 05/28/21 08:01 68 05/28/21 07:51 66 05/28/21 05:00 97.6 F 83 18 101/59 97 05/27/21 21:00 97.9 F 91 20 99/55 96 05/27/21 20:00 91 05/27/21 15:23 97.8 F 91 96 17 98/58 Intake and Output 05/27/21 05/28/21 05/28/21 22:59 06:59 14:59 Intake Total 900 200 Balance 900 200 Intake: Intake, IV Titration 900 Amount Sodium Chloride 0.9% 1, 900 000 ml @ 75 mls/hr IV . [id number] Rx#:[id number] Oral 200 Other: Voiding Method Diaper Diaper Incontinent Incontinent # Voids 2 2 1 # Bowel Movements 2 1 Patient is wearing a diaper in the diaper does have a significant amount of dark blood on the pad. - OBG Physical Exam Vulva: both: atrophy Vagina: discharge (Scant brownish discharge was seen on glove on withdrawal from the vagina, no bright red blood or clots were seen.) Cervix: Cervix is palpated and feels normal and smooth Uterus: Uterus is very small, nontender with no adnexal masses on pelvic exam Results Result Diagrams: 05/28/21 06:29 05/28/21 06:29 Abnormal Lab Results - Last 24 Hours (Table) 05/27/21 05/28/21 05/28/21 Range/Units 06:53 05:00 06:29 RBC 3.00 L 2.77 L (4.10-5.20) X 10*6/uL Hgb 8.7 L 8.0 L (12.0-15.0) g/dL Hct 28.1 L 26.1 L (37.2-46.3) % MCHC 31.0 L 30.7 L (32.0-37.0) g/dL RDW 15.3 H 15.5 H (11.5-14.5) % MPV 9.4 L (9.5-12.2) fL Immature Gran # 0.17 H 0.16 H (0.00-0.04) X 10*3/uL Eosinophils # 0.38 H (0.04-0.35) X 10*3/uL Basophils # 0.12 H (0.00-0.10) X 10*3/uL Anion Gap (10.00-18.00) mmol/L Creatinine (0.6-1.5) mg/dL Calcium (8.7-10.3) mg/dL Total Bilirubin (0.30-1.20) mg/dL AST (13-35) U/L ALT (8-44) U/L Total Protein (6.2-8.2) g/dL Albumin (3.8-4.9) g/dL Albumin/Globulin Ratio (1.60-3.17) g/dL Urine Appearance Bloody H (Clear) Urine RBC >182 H (0-5) /hpf Urine WBC 87 H (0-5) /hpf Urine Bacteria Many H (None) /hpf 05/28/21 Range/Units 06:29 RBC (4.10-5.20) X 10*6/uL Hgb (12.0-15.0) g/dL Hct (37.2-46.3) % MCHC (32.0-37.0) g/dL RDW (11.5-14.5) % MPV (9.5-12.2) fL Immature Gran # (0.00-0.04) X 10*3/uL Eosinophils # (0.04-0.35) X 10*3/uL Basophils # (0.00-0.10) X 10*3/uL Anion Gap 8.10 L (10.00-18.00) mmol/L Creatinine 0.5 L (0.6-1.5) mg/dL Calcium 8.1 L (8.7-10.3) mg/dL Total Bilirubin <0.15 L (0.30-1.20) mg/dL AST 11 L (13-35) U/L ALT 7 L (8-44) U/L Total Protein 5.3 L (6.2-8.2) g/dL Albumin 2.4 L (3.8-4.9) g/dL Albumin/Globulin Ratio 0.84 L (1.60-3.17) g/dL Urine Appearance (Clear) Urine RBC (0-5) /hpf Urine WBC (0-5) /hpf Urine Bacteria (None) /hpf Assessment and Plan (1) Genitourinary bleeding Current Visit: Yes Status: Acute Code(s): R31.9 - HEMATURIA, UNSPECIFIED SNOMED Code(s): 974957892 Plan: My impression is that her genitourinary bleeding is likely from the bladder based on ultrasound findings of a thickened bladder wall along with debris within the bladder and nursing stating that there is blood coming from a straight cath urine specimen. Since the patient is incontinent is difficult to tell exactly where the bleeding is coming from on the diaper. Just by the fact that the diaper is up against her genitourinary area, some blood may go into the vagina just based on proximity. Her uterine lining is normal for postmenopausal and therefore it is doubtful it is due to a uterine etiology. My recommendation is to consult urology for further evaluation. If urology and general surgery evaluations are negative, then we may be able to proceed with further evaluation of the uterine lining, however family may need to be involved in this decision as to whether or not they would like to pursue surgical evaluation with dilation and curettage. I will follow with you.
[2021-05-28] MEDS: LEVOFLOXACIN 250MG-D5W PMX 250 MG in DEXTROSE/WATER 1 50ML.BAG IVPB SCH (13:35)
[2021-05-29] MEDS: SODIUM CHLORIDE 0.9% 1,000 ML IV SCH ×2 (03:38→17:31)
[2021-05-29] MEDS: IPRATROPIUM-ALBUTEROL 3 ML NEB INHALATION SCH ×2 (08:31→19:21)
[2021-05-29] MEDS: PANTOPRAZOLE 40 MG TABLET PO SCH (08:59)
[2021-05-29] MEDS: atenoloL 25 MG TAB PO SCH (08:59)
[2021-05-29] MEDS: RALOXIFENE 60 MG TAB PO SCH (08:59)
[2021-05-29] MEDS: LEVOTHYROXINE 50 MCG TAB PO SCH (08:59)
[2021-05-29] MEDS: MULTIVITAMINS, THERA 1 EACH TAB PO SCH (08:59)
[2021-05-29] MEDS: SENNOSIDES-DOCUSATE SODIUM 1 EACH TAB PO SCH (09:01)
[2021-05-29 10:45] LABS: Basophils # (A) 0.1 k/uL (0-0.2); Basophils % (A) 1 %; Eosinophils # (A) 0.3 k/uL (0-0.7); Eosinophils % (A) 4 %; HCT 26.8 % (34.0-46.0); Hypochromasia Marked; Lymphocytes # (A) 1.8 k/uL (1.0-4.8); Lymphocytes % (A) 26 %; MCH 29.9 pg (25.0-35.0); MCHC 30.1 g/dL (31.0-37.0); Macrocytosis Slight; Mean Platelet Volume 7.2; Monocytes # (A) 0.5 k/uL (0-1.0); Monocytes % (A) 7 %; Neutrophils % (A) 59 %; Platelet Count 342 k/uL (150-450); RDW 15.1 % (11.5-15.5); WBC 6.9 k/uL (3.8-10.6)
[2021-05-29 10:46] LABS: HGB 8.1 gm/dL (11.4-16.0); MCV 99.3 fL (80.0-100.0)
[2021-05-29] MEDS: LEVOFLOXACIN 250MG-D5W PMX 250 MG in DEXTROSE/WATER 1 50ML.BAG IVPB SCH (12:29)
--- NOTE | 2021-05-29 12:35 | CT ---
EXAMINATION TYPE: CT urogram wo/w con DATE OF EXAM: 05/29/2021 INDICATION: gross hematuria CT DLP: 1113.5 mGy.cm Automated Exposure Control for Dose Reduction was Utilized. TECHNIQUE AND CONTRAST: CT scan of the abdomen and pelvis is performed without and with IV Contrast as per urogram protocol, patient injected with 100 mL of Isovue 300. 3-D reconstructed images were performed and reviewed. COMPARISON: None available FINDINGS: Respiratory motion artifacts. Tiny bilateral millimetric renal calculi versus arterial calcifications measuring up to 2 mm. No hydroureter or hydronephrosis. No definite renal lesion identified. No fill ing defect is seen within the renal collecting system or the opacified portion of the ureters. Segmen ts of the ureters are not opacified in the delayed images. Smaller ureteric lesion cannot be excluded . Thickened urinary bladder wall demonstrating air and Kurtz catheter within. Large diverticulum is s een in the left side of the pelvis measuring 5 x 5.4 cm. Cystitis or urothelial lesion cannot be excl uded. Please correlate with urinalysis results. No definite hepatic focal lesion. No radiodense gallbladder calculi. Tiny splenic calcifications, oth erwise unremarkable spleen. Markedly atrophic pancreas. Dilated CBD, please correlate with bilirubin level. Grossly unremarkable adrenals. Extensive arterial atherosclerotic calcifications and tortuosit y. Hiatal hernia containing portion of the stomach. No small bowel obstruction. Fecal loading of the colon. Subtle small or large bowel abnormality can't be excluded by this CT scan due to marked paucit y of intra-abdominal fat. Pelvic structures are suboptimally visualized due to artifacts from the right hip prosthesis. Inferio r rectal and anal wall thickening, please correlate clinically. Small amount of free pelvic fluid. 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 Os teopenia. Right hip hemiarthroplasty. Levoscoliosis of the lumbar spine with severe degenerative goel ges. Grade 2 anterolisthesis of L5 over S1 with suspected bilateral L5 pars break. Small bilateral pl eural effusions with subsegmental pulmonary atelectasis, bilateral basal peripheral reticulations and mild fibrotic changes. IMPRESSION: 1. Suboptimal CT scan as described above. No definite gross renal or ureteric lesion however small le dariana can't be excluded. No hydroureter or hydronephrosis. 2. Thickened urinary bladder wall with large left-sided diverticulum as described above. Recommend cl inical correlation and correlation with urinalysis results to rule out cystitis. Small urothelial les ion can't be excluded. Further cystoscopy can be considered. 3. 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 Other multiple incidental findings as detailed above.
--- NOTE | 2021-05-29 12:41 | P.GSCN ---
History of Present Illness History of present illness: This is this 86-year-old female admitted to the hospital with a possible GI bleed. But on further evaluation it appeared to be that she is more likely has been having gross hematuria rather than GI bleed. Hgb dropped to 8 from 10, but repeat hgb this am is stable at 8.1. Of note Patient is a poor historian and was unsure where the source of blood is. But per nursing staff they noticed gross hematuria when she voids. She denies any abdominal pain, dysuria, or flank pain. No known previous known history of gross hematuria. UA on presentation did show evidence of red urine. 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 Past Anesthesia/Blood Transfusion Reactions: No Reported Reaction Past Psychological History: No Psychological Hx Reported Additional Psychological History / Comment(s): Pt resides at [facility] in [place]. She was using a walker until recently. She is normally oriented to person/place. Smoking Status: Unknown if ever smoked Past Alcohol Use History: None Reported Past Drug Use History: None Reported - Past Family History Father Additional Family Medical History / Comment(s): heart disease. Mother Additional Family Medical History / Comment(s): heart disease. Sister(s) Family Medical History: Cancer Additional Family Medical History / Comment(s): 3 SISTERS WITH BREAST CA Medications and Allergies Home Medications Medication Instructions Recorded Confirmed Type Levothyroxine Sodium [Synthroid] 50 mcg PO DAILY@0800 04/01/17 05/26/21 History Multivitamins, Thera [Multivitamin 1 tab PO DAILY@79911/02/19 05/26/21 History (formulary)] Omeprazole 40 mg PO DAILY@79911/02/19 05/26/21 History atenoloL 25 mg PO DAILY@79911/02/19 05/26/21 History Albuterol Inhaler [Ventolin Hfa 2 puff INHALATION RT-Q4H PRN puff 07/08/20 05/26/21 Rx Inhaler] Ipratropium-Albuterol Nebulize 3 ml INHALATION RT-BID@799,199901/06/21 05/26/21 History [Duoneb 0.5 mg-3 mg/3 ml Soln] Sennosides-Docusate Sodium 1 tab PO DAILY@0800 01/06/21 05/26/21 History [Senokot-S] HYDROcodone/APAP 5-325MG [[place] 1 tab PO Q6HR PRN 3 Days #12 tab 01/11/21 05/26/21 Rx 5-325] Aspirin EC [Ecotrin Low Dose] 81 mg PO DAILY@79903/07/21 05/26/21 History Fluconazole [Diflucan] 100 mg PO DAILY@79903/07/21 05/26/21 History Silver Sulfadiazine [SSD 1% Cream] 1 applic TOPICAL BID@799,199903/07/21 05/26/21 History Acetaminophen [Tylenol] 650 mg PO BID@799,199905/26/21 05/26/21 History Acetaminophen [Tylenol] 650 mg PO Q8H PRN 05/26/21 05/26/21 History Raloxifene [Evista] 60 mg PO DAILY@79905/26/21 05/26/21 History Allergies Allergy/AdvReac Type Severity Reaction Status Date / Time cefuroxime Allergy Intermediate Hives Verified 05/26/21 19:22 Surgical - Exam Vital Signs Temp Pulse Resp BP Pulse Ox 97.9 F 78 16 108/56 99 05/26/21 18:31 05/26/21 18:31 05/26/21 18:31 05/26/21 18:31 05/26/21 18:31 - General no distress, no pain - Respiratory normal expansion, normal respiratory effort - Abdomen Abdomen: soft, non tender - Psychiatric speech is normal Results - Labs 05/29/21 10:02 05/28/21 06:29 Abnormal Lab Results - Last 24 Hours (Table) 05/29/21 Range/Units 10:02 RBC 2.70 L (3.80-5.40) m/uL Hgb 8.1 L D (11.4-16.0) gm/dL Hct 26.8 L (34.0-46.0) % MCHC 30.1 L (31.0-37.0) g/dL Microbiology - Last 24 Hours (Table) 05/28/21 05:00 Urine Culture - Preliminary Urine,Voided Assessment and Plan Assessment: 86-year-old female with hx of gross hematuria, hemoglobin dropped to 8 from 10 on presentation, repeat this morning is stable at 8.1. Pelvic ultrasound on presentation showed evidence of distended bladder with debris possibly clots -we'll obtain a CT urogram -Place good catheter, and irrigate PRN If hematuric
--- NOTE | 2021-05-29 14:10 | P.PN ---
Subjective Progress Note Date: 05/29/21 CHIEF COMPLAINT: GI bleed HISTORY OF PRESENT ILLNESS: Patient lying in bed comfortably. Apparently she is actually having hematuria and not GI bleed. Patient seen by urology. I fully catheter inserted per nursing with evidence of hematuria. Hemoglobin is 8.1 was 8.0 yesterday and tachycardia on admission. Patient had CT urogram done today. She's currently on regular diet. Afebrile. PHYSICAL EXAM: VITAL SIGNS: Reviewed. GENERAL: Well-developed in no acute distress. HEENT: No sclera icterus. Extraocular movements grossly intact. Moist buccal mucosa. Head is atraumatic, normocephalic. ABDOMEN: Soft. Nondistended. Nontender. ASSESSMENT: 1. Patient admitted with possible GI bleed. Source appears more from the bladder. Patient having evidence of hematuria 2. Anemia PLAN: -Continue urology workup -Continue to monitor hemoglobin -Continue supportive care Physician Steam Trap Worker note has been reviewed by physician. Signing provider agrees with the documented findings, assessment, and plan of care. Objective - Vital Signs Vital signs: Vital Signs Temp 98 F 05/29/21 11:32 Pulse 82 05/29/21 11:32 Resp 16 05/29/21 11:32 BP 121/64 05/29/21 11:32 Pulse Ox 94 L 05/29/21 11:32 Intake & Output 05/28/21 05/29/21 05/29/21 18:59 06:59 18:59 Intake Total 900 600 Output Total 425 Balance 900 600 -425 Intake: Intake, IV Titration 900 600 Amount Sodium Chloride 0.9% 1, 900 600 000 ml @ 75 mls/hr IV . [id number] [facility] Rx#:[id number] Output: Urine 425 Uretheral (Kurtz) 425 Other: Voiding Method Diaper Diaper Indwelling Catheter Incontinent Incontinent # Voids 2 - Labs CBC & Chem 7: 05/29/21 10:02 05/28/21 06:29 Labs: Abnormal Lab Results - Last 24 Hours (Table) 05/29/21 Range/Units 10:02 RBC 2.70 L (3.80-5.40) m/uL Hgb 8.1 L D (11.4-16.0) gm/dL Hct 26.8 L (34.0-46.0) % MCHC 30.1 L (31.0-37.0) g/dL Microbiology - Last 24 Hours (Table) 05/28/21 05:00 Urine Culture - Preliminary Urine,Voided
[2021-05-29] MEDS ORDERED: ONDANSETRON 4 MG/2 ML VIAL IVP STA (17:22)
[2021-05-29] MEDS: FERROUS SULFATE 325 MG TAB PO SCH (17:31)
--- NOTE | 2021-05-29 18:04 | PN ---
PROGRESS NOTE This 86-year-old white female is nauseated tonight. She does want to leave the hospital, so we will probably keep her with Zofran given, 4 mg. Blood pressure is 120s over 60s, temperature 98, pulse 82, respiratory rate 16-18, O2 94 on room air. Cardiovascular S1, S2. Lungs clear. GI soft. Hematology negative Homans. ASSESSMENT: 1. Suspect urinary tract infection, possible pyelonephritis. 2. Systemic inflammatory response syndrome. 3. Vaginal/bladder bleeding. Multiple gynecologists, urology. Urology ordered a urology CT scan that is showing a possible lesion, possible small lesion. No acute severe findings except for diverticulum. Waiting for clearance from multiple consultants prior to going home. Continue with Levaquin until urine culture comes back. MMODL / IJN: [id number] /
[2021-05-30] MEDS: SODIUM CHLORIDE 0.9% 1,000 ML IV SCH ×2 (05:12→19:08)
[2021-05-30] MEDS: IPRATROPIUM-ALBUTEROL 3 ML NEB INHALATION SCH ×2 (08:14→19:50)
--- NOTE | 2021-05-30 08:51 | P.PN ---
Progress Note - Text Progress Note Date: 05/30/21 The patient has no complaints this morning. Her Kurtz catheter shows urine which is mostly clear, with a small amount of old blood. The CT scan showed no renal abnormalities. From a urologic standpoint, the Kurtz catheter may be removed and she can be discharged home. Arrangements will be made for her to undergo office cystoscopy in 1 week.
[2021-05-30] MEDS ORDERED: LEVOFLOXACIN 250 MG TAB PO SCH (09:00)
[2021-05-30] MEDS: RALOXIFENE 60 MG TAB PO SCH (09:04)
[2021-05-30] MEDS: PANTOPRAZOLE 40 MG TABLET PO SCH (09:04)
[2021-05-30] MEDS: FERROUS SULFATE 325 MG TAB PO SCH ×2 (09:04→18:08)
[2021-05-30] MEDS: LEVOTHYROXINE 50 MCG TAB PO SCH (09:04)
[2021-05-30] MEDS: MULTIVITAMINS, THERA 1 EACH TAB PO SCH (09:04)
[2021-05-30] MEDS: SENNOSIDES-DOCUSATE SODIUM 1 EACH TAB PO SCH (09:07)
[2021-05-30] MEDS: atenoloL 25 MG TAB PO SCH (09:12)
[2021-05-30] MEDS: AZTREONAM 2 GM in SODIUM CHLORIDE 0.9% 100 ML IVPB SCH ×2 (11:59→23:32)
--- NOTE | 2021-05-30 13:37 | P.PN ---
Progress Note - Text Progress Note Date: 05/30/21 Source of genitourinary bleeding appears to be bladder and related to E.coli UTI. No further customer advisor specialist intervention necessary. Please re-consult if needed.
--- NOTE | 2021-05-30 14:59 | CDI ---
Documentation Clarification Form Date: 05/30/2021 02:48:42 PM From: Nilsa Chen RN CCDS Admit Date: 05/29/2021 11:06:00 AM Patient Name: Emely Whiting Visit Number: [id number] Discharge Date: ATTENTION: The Clinical Documentation Specialists (CDI) and [facility] Coding Staff appreciate your assistance in clarifying documentation. Please respond to the clarification below the line at the bottom and electronically sign. The CDI & [facility] Coding staff will review the response and follow-up if needed. Please note: Queries are made part of the Legal Health Record. If you have any questions, please contact the author of this message via ITS. Dr. Victor Hugo Zhong In the Nursing Wound assessment 05/27 05/30 a Stage 3 right heel pressure ulcer is documented by Nursing. Based on this information and the findings below, is there an additional diagnosis that is clinically appropriate for this patient? History/Risk Factors: 86-year-old female presents to the ED with bright red blood per rectum with GI bleed. Medical History: Cancer, COPD, Dementia and Heart failure. Clinical Indicators: Location: Right Heel Wound description: pressure injury stage 3 Treatment: to current Foam w/ border; 05/27 to current Turn 2 q hours; 05/27 to current Oral nutrition and05/27 current Absorbant underpad. Is there an additional diagnosis that is clinically appropriate for this patient? [ ] Right Heel Pressure Ulcer Stage 3 [ ] Right Heel Pressure Ulcer unstageable [ ] Other condition, please specify [ ] Unable to determine Clinical Definitions: Stage 1 Pressure Ulcer: intact skin, non-blanching redness of local area Stage 2 Pressure Ulcer: Partial thickness, loss of dermis, pink wound bed Stage 3 Pressure Ulcer: Full thickness tissue loss Stage 4 Pressure Ulcer: Full thickness tissue loss with exposed bone, tendon, or muscle. Unstageable pressure ulcer: Full thickness tissue loss in which the base of the ulcer is covered by slough (yellow, pierson, aguilar, green or brown) and/or eschar (pierson, brown or black) in the wound bed. (Template Last Revised: May 2020) JOHN
--- NOTE | 2021-05-30 15:06 | CDI ---
Documentation Clarification Form Date: 05/30/2021 02:48:42 PM From: Nilsa Chen RN CCDS Admit Date: 05/29/2021 11:06:00 AM Patient Name: Emely Whiting Visit Number: [id number] Discharge Date: ATTENTION: The Clinical Documentation Specialists (CDI) and [facility] Coding Staff appreciate your assistance in clarifying documentation. Please respond to the clarification below the line at the bottom and electronically sign. The CDI & [facility] Coding staff will review the response and follow-up if needed. Please note: Queries are made part of the Legal Health Record. If you have any questions, please contact the author of this message via ITS. Dr. Victor Hugo Zhong A Sacral pressure ulcer is documented by Nursing 05/27 05/30, Wound assessment. Based on this information and the findings below, is there an additional diagnosis that is clinically appropriate for this patient? History/Risk Factors: 86-year-old female presents to the ED with bright red blood per rectum with GI bleed. Medical History: Cancer, COPD, Dementia and Heart failure. Clinical Indicators: Location: Sacrum Wound description: Granulation - [place]; Mable wound Moisture Moist; Mable Wound color Erythema; Mable wound tenderness yes. Treatment: to current Foam w/ border; 05/27 to current Turn 2 q hours; 05/27 to current Oral nutrition and05/27 current Absorbant underpad. Is there an additional diagnosis that is clinically appropriate for this patient? [ ] Sacral Pressure Ulcer Stage 3 [ ] Other condition, please specify [ ] Unable to determine Clinical Definitions: Stage 1 Pressure Ulcer: intact skin, non-blanching redness of local area Stage 2 Pressure Ulcer: Partial thickness, loss of dermis, pink wound bed Stage 3 Pressure Ulcer: Full thickness tissue loss Stage 4 Pressure Ulcer: Full thickness tissue loss with exposed bone, tendon, or muscle. Unstageable pressure ulcer: Full thickness tissue loss in which the base of the ulcer is covered by slough (yellow, pierson, aguilar, green or brown) and/or eschar (pierson, brown or black) in the wound bed. (Template Last Revised: May 2020) JOHN
--- NOTE | 2021-05-30 15:25 | CDI ---
Documentation Clarification Form Date: 05/30/2021 03:07:51 PM From: Nilsa Chen RN CCDS Admit Date: 05/29/2021 11:06:00 AM Patient Name: Emely Whiting Visit Number: [id number] Discharge Date: ATTENTION: The Clinical Documentation Specialists (CDI) and [facility] Coding Staff appreciate your assistance in clarifying documentation. Please respond to the clarification below the line at the bottom and electronically sign. The CDI & [facility] Coding staff will review the response and follow-up if needed. Please note: Queries are made part of the Legal Health Record. If you have any questions, please contact the author of this message via ITS. Dr. Victor Hugo Zhong The Registered Dietitian assessment on 05/27 indicates nutritional diagnosis chronic severe malnutrition. Based on this information and the findings below, is there an additional diagnosis that is clinically appropriate for this patient? History/Risk Factors: History/Risk Factors: 86-year-old female presents to the ED with bright red blood per rectum with GI bleed. Medical History: Cancer, COPD, Dementia, Heart failure, Stage 3 Sacral ulcer, Stage 3 Right Heel ulcer, Clinical Indicators: Current BMI: 19.0 Weight 56.699kg estimated by patient. Height 5ft 8 in Estimated Nutritional Needs in Kcals: [place] St Jeor Equation formula used to estimate . Energy Needs Kcal 1607. Estimated Protein Needs: Estimated protein Range (grams/kg) 57-68; Estimated Protein Needs (grams/day) 1 1.2. Estimated fluid needs 1ml/Kcal Nutritional Diagnosis Intake: Increased nutrient needs Malnutrition. Specific Nutrient Chronic severe malnutrition. Increased protein needs. Diagnostic Statement : Related to wound healing. As evidenced by Sacral and Heel; Related to poor oral intake. Evidenced by Nutrition focused physical exam. 05/27, Surgical consult: Elderly somewhat malnourished appearing female. Treatment: Monitor oral intake, High protein diet. Dietary Consult: see above Supplements: 05/27 to current Ensure Clear TID. Is there an additional diagnosis that is clinically appropriate for this patient? [ ] Severe Protein-Calorie Malnutrition [ ] Other condition, please specify [ ] Unable to Determine (Template Last Revised: May 2020) MTDD
--- NOTE | 2021-05-30 16:03 | P.PN ---
Subjective Progress Note Date: 05/30/21 CHIEF COMPLAINT: GI bleed HISTORY OF PRESENT ILLNESS: Patient lying in bed comfortably. Apparently she is actually having hematuria and not GI bleed. Patient seen by urology. Patient's Kurtz catheter is showing hematuria. But apparently it is clearing. Patient seen by urology felt that UTI contributing to patient's hematuria. And recommending cystoscopy outpatient. No evidence of GI bleed. Patient resting comfortably. Hemoglobin stable at 8.1. No repeat CBC today. Patient scheduled for discharge. Patient seen and examined with Dr. Conde PHYSICAL EXAM: VITAL SIGNS: Reviewed. GENERAL: Well-developed in no acute distress. HEENT: No sclera icterus. Extraocular movements grossly intact. Moist buccal mucosa. Head is atraumatic, normocephalic. ABDOMEN: Soft. Nondistended. Nontender. ASSESSMENT: 1. Patient admitted with possible GI bleed. No evidence of GI bleed. Source appears more from the bladder. Patient having evidence of hematuria. Patient seen by urology. She's receiving antibiotics for UTI that could be contributing to hematuria. Urology recommending cystoscopy outpatient. 2. Anemia PLAN: -No surgical intervention planned -Continue workup per urology Physician Grinding Wheel Facer note has been reviewed by physician. Signing provider agrees with the documented findings, assessment, and plan of care. Objective - Vital Signs Vital signs: Vital Signs Temp 97.5 F L 05/30/21 13:56 Pulse 91 05/30/21 13:56 Resp 16 05/30/21 13:56 BP 101/53 05/30/21 13:56 Pulse Ox 99 05/30/21 13:56 Intake & Output 05/29/21 05/30/21 05/30/21 18:59 06:59 18:59 Intake Total 900 Output Total 625 Balance -625 900 Weight 52.5 kg Intake: Intake, IV Titration 900 Amount Sodium Chloride 0.9% 1, 900 000 ml @ 75 mls/hr IV . [id number] [facility] Rx#:[id number] Output: Urine 625 Uretheral (Kurtz) 425 Other: Voiding Method Indwelling Catheter Indwelling Catheter Indwelling Catheter - Labs CBC & Chem 7: 05/29/21 10:02 05/28/21 06:29 Labs: Microbiology - Last 24 Hours (Table) 05/28/21 05:00 Urine Culture - Final Urine,Voided Escherichia coli
--- NOTE | 2021-05-30 18:03 | PN ---
PROGRESS NOTE This 86-year-old white female has urosepsis UTI. She has MULTIPLE ALLERGIES. She remains on aztreonam ordered by Infectious Disease. She is going to get an outpatient cystoscopy as soon as her UTI improves enough. Per Dr. Rivera's recommendations, I will clear her and get her discharged home to follow up with Urology for cystoscopy as an outpatient. Continue current treatments. Prognosis guarded. Follow up as an outpatient. MMODL / IJN: [id number] /
[2021-05-30] MEDS: NITROFURANTOIN MONOHYD/M-CRYST 100 MG CAP PO SCH (21:19)
[2021-05-30] MEDS: ACETAMINOPHEN TAB 325 MG TAB PO PRN (21:19)
--- NOTE | 2021-05-30 22:51 | P.CONS ---
History of Present Illness - Reason for Consult Consult date: 05/30/21 Sacral pressure ulcer and UTI Requesting physician: Victor Hugo Zhong - Chief Complaint Hematuria x 1 day - History of Present Illness Patient is 86-year-old female presenting to the hospital about 5 days ago for evaluation of bright red blood per rectum the patient symptoms started the day he presented to the hospital no history of any abdominal pain or any vomiting patient on presentation to the hospital was afebrile and no fever had been recorded subsequently patient did have a normal white count she did have a drop in hemoglobin from 10-8.1 patient did have normal liver enzymes patient did have a positive UA with 87 WBC and many bacteria urine culture have been finalized with an E. coli that is resistant to Cipro and Levaquin Bactrim DS and the patient will have cefuroxime allergy patient is currently on Levaquin infectious he was consulted for pressure ulcer to the sacral area as well as UTI and antibiotic therapy patient did have a pelvic ultrasound correlate for possible cystitis with abnormal echoes within the bladder patient has been evaluated by urology, and apparently the initial symptoms of bleeding per rectum is actually gross hematuria, patient did have a CT urogram thickened urinary bladder wall with large left-sided diverticulum, patient herself not with good historian so most information has been obtained from review the chart and talking nursing staff patient was noticed to have a pressure ulcer to the sacrum on the left heel area however the patient currently do not have any symptoms referable to them Review of Systems Positive points has been mentioned in HPI complete review could not be obtained because of his underlying mental status Past Medical History Past Medical History: Cancer, Heart Failure, COPD, Dementia, GERD/Reflux, Thyroid Disorder Additional Past Medical History / Comment(s): HIATAL HERNIA, breast ca, bone cancer, 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 Past Anesthesia/Blood Transfusion Reactions: No Reported Reaction Past Psychological History: No Psychological Hx Reported Additional Psychological History / Comment(s): Pt resides at [facility] in [place]. She was using a walker until recently. She is normally oriented to person/place. Smoking Status: Unknown if ever smoked Past Alcohol Use History: None Reported Past Drug Use History: None Reported - Past Family History Father Additional Family Medical History / Comment(s): heart disease. Mother Additional Family Medical History / Comment(s): heart disease. Sister(s) Family Medical History: Cancer Additional Family Medical History / Comment(s): 3 SISTERS WITH BREAST CA Medications and Allergies Home Medications Medication Instructions Recorded Confirmed Type Levothyroxine Sodium [Synthroid] 50 mcg PO DAILY@0800 04/01/17 05/26/21 History Multivitamins, Thera [Multivitamin 1 tab PO DAILY@79911/02/19 05/26/21 History (formulary)] Omeprazole 40 mg PO DAILY@79911/02/19 05/26/21 History atenoloL 25 mg PO DAILY@79911/02/19 05/26/21 History Albuterol Inhaler [Ventolin Hfa 2 puff INHALATION RT-Q4H PRN puff 07/08/20 05/26/21 Rx Inhaler] Ipratropium-Albuterol Nebulize 3 ml INHALATION RT-BID@799,199901/06/21 05/26/21 History [Duoneb 0.5 mg-3 mg/3 ml Soln] Sennosides-Docusate Sodium 1 tab PO DAILY@79901/06/21 05/26/21 History [Senokot-S] HYDROcodone/APAP 5-325MG [[place] 1 tab PO Q6HR PRN 3 Days #12 tab 01/11/21 05/26/21 Rx 5-325] Aspirin EC [Ecotrin Low Dose] 81 mg PO DAILY@79903/07/21 05/26/21 History Silver Sulfadiazine [SSD 1% Cream] 1 applic TOPICAL BID@799,199903/07/21 05/26/21 History Acetaminophen [Tylenol] 650 mg PO BID@799,199905/26/21 05/26/21 History Acetaminophen [Tylenol] 650 mg PO Q8H PRN 05/26/21 05/26/21 History Levofloxacin [Levaquin] 250 mg PO DAILY 5 Days #5 tab 05/29/21 Rx Nitrofurantoin Monohyd/M-Cryst 100 mg PO BID 10 Days #20 cap 05/30/21 Rx [Macrobid] Allergies Allergy/AdvReac Type Severity Reaction Status Date / Time cefuroxime Allergy Intermediate Hives Verified 05/26/21 19:22 Physical Exam Vitals: Vital Signs Temp Pulse Pulse Resp BP Pulse Ox 05/30/21 09:02 94 101/40 96 05/30/21 05:51 100/53 05/30/21 04:53 98.5 F 86 16 83/48 98 05/29/21 19:36 98.5 F 68 16 97/51 95 05/29/21 19:32 90 05/29/21 19:23 87 05/29/21 19:20 68 16 05/29/21 11:32 98 F 82 16 121/64 94 L Intake and Output 05/29/21 05/30/21 05/30/21 22:59 06:59 14:59 Intake Total 900 Output Total 200 Balance -200 900 Intake: Intake, IV Titration 900 Amount Sodium Chloride 0.9% 1, 900 000 ml @ 75 mls/hr IV . [id number] [facility] Rx#:[id number] Output: Urine 200 Other: Voiding Method Indwelling Catheter Weight 52.5 kg GENERAL DESCRIPTION: An elderly female lying in bed, no distress. No tachypnea or accessory muscle of respiration use. HEENT: Shows Pallor , no scleral icterus. Oral mucous membrane is dry. No pharyngeal erythema or thrush NECK: Trachea central, no thyromegaly. LUNGS: Unlabored breathing. Clear to auscultation anteriorly. No wheeze or crackle. HEART: S1, S2, regular rate and rhythm. No loud murmur ABDOMEN: Soft, no tenderness , guarding or rigidity, no organomegaly EXTREMITIES: No edema of feet. Left he did have a stage II pressure ulcer with no cellulitis SKIN: No rash, no masses palpable. Sacrum to have a stage II pressure ulcer with no slough tissue or surrounding redness NEUROLOGICAL: The patient is awake, alert, oriented x1, mood and affect normal. Results CBC & Chem 7: 05/29/21 10:02 05/28/21 06:29 Labs: Abnormal Lab Results - Last 24 Hours (Table) 05/29/21 Range/Units 10:02 RBC 2.70 L (3.80-5.40) m/uL Hgb 8.1 L D (11.4-16.0) gm/dL Hct 26.8 L (34.0-46.0) % MCHC 30.1 L (31.0-37.0) g/dL Assessment and Plan (1) Stage II pressure ulcer of back Current Visit: No Status: Acute Code(s): L89.102 - PRESSURE ULCER OF UNSPECIFIED PART OF BACK, STAGE 2 SNOMED Code(s): 212164127 (2) UTI (urinary tract infection) Current Visit: No Status: Acute Code(s): N39.0 - URINARY TRACT INFECTION, SITE NOT SPECIFIED SNOMED Code(s): 79243157 Plan: 1patient presented to hospital with gross hematuria and this patient did have evidence of cystitis with urine showing E. coli with resistance to Levaquin, Bactrim and tetracycline, 2-patient to have a cephalosporin allergy with reaction documented as hives no clear history of the patient can tolerate penicillin. 3patient with stage II sacral and left heel pressure ulcer with no cellulitis 4discontinue Levaquin 5-start the patient on Azactam 2 g every 12 hours, we will try to obtain more information as far as her cephalosporin allergy and to see the patient tolerated penicillin as Augmentin may be good oral option for discharge. 6local wound care to the sacrum and the left heel with a dry Aquacel silver dressing keep the area of the pressure We will follow on clinical condition and cultures to further adjust medication if needed Thank you for this consultation will follow this patient along with you
[2021-05-31 05:26] VITALS: RESP 16; TEMP 98
[2021-05-31] MEDS: IPRATROPIUM-ALBUTEROL 3 ML NEB INHALATION SCH (07:46)
[2021-05-31] MEDS: LEVOTHYROXINE 50 MCG TAB PO SCH (08:04)
[2021-05-31] MEDS: NITROFURANTOIN MONOHYD/M-CRYST 100 MG CAP PO SCH (08:04)
[2021-05-31] MEDS: FERROUS SULFATE 325 MG TAB PO SCH ×2 (08:05→17:50)
[2021-05-31] MEDS: RALOXIFENE 60 MG TAB PO SCH (08:05)
[2021-05-31] MEDS: atenoloL 25 MG TAB PO SCH (08:05)
[2021-05-31] MEDS: MULTIVITAMINS, THERA 1 EACH TAB PO SCH (08:05)
[2021-05-31] MEDS: PANTOPRAZOLE 40 MG TABLET PO SCH (08:05)
[2021-05-31] MEDS: SENNOSIDES-DOCUSATE SODIUM 1 EACH TAB PO SCH (08:05)
[2021-05-31] MEDS: AMOXIC-POT CLAV 500-125 MG 1 EACH TAB PO SCH ×2 (10:18→15:12)
[2021-05-31] MEDS: AZTREONAM 2 GM in SODIUM CHLORIDE 0.9% 100 ML IVPB SCH (11:48)
[2021-05-31] MEDS: SODIUM CHLORIDE 0.9% 1,000 ML IV SCH (11:48)
[2021-05-31 12:02] VITALS: BP 112/62; PULSE 73
--- NOTE | 2021-05-31 12:58 | P.PN ---
Subjective Progress Note Date: 05/31/21 CHIEF COMPLAINT: GI bleed HISTORY OF PRESENT ILLNESS: Patient lying in bed comfortably. Apparently she is actually having hematuria and not GI bleed. Patient seen by urology. Patient seen by urology felt that UTI contributing to patient's hematuria. And recommending cystoscopy outpatient. No evidence of GI bleed. Patient resting comfortably. Patient scheduled for discharge. Patient seen and examined with Dr. Conde PHYSICAL EXAM: VITAL SIGNS: Reviewed. GENERAL: Well-developed in no acute distress. HEENT: No sclera icterus. Extraocular movements grossly intact. Moist buccal mucosa. Head is atraumatic, normocephalic. ABDOMEN: Soft. Nondistended. Nontender. ASSESSMENT: 1. Patient admitted with possible GI bleed. No evidence of GI bleed. Source appears more from the bladder. Patient having evidence of hematuria. Patient seen by urology. She's receiving antibiotics for UTI that could be contributing to hematuria. Urology recommending cystoscopy outpatient. 2. Anemia PLAN: -No surgical intervention planned -Continue supportive care Physician Aml Analyst note has been reviewed by physician. Signing provider agrees with the documented findings, assessment, and plan of care. Objective - Vital Signs Vital signs: Vital Signs Temp 98 F 05/31/21 12:01 Pulse 73 05/31/21 12:01 Resp 16 05/31/21 12:01 BP 112/62 05/31/21 12:01 Pulse Ox 98 05/31/21 12:01 Intake & Output 05/30/21 05/31/21 05/31/21 18:59 06:59 18:59 Intake Total 1000 Output Total 1200 Balance -200 Weight 52 kg Intake: Intake, IV Titration 1000 Amount Aztreonam 2 gm In Sodium 100 Chloride 0.9% 100 ml @ 33 .3 mls/hr IVPB Q12H [facility] Rx#:[id number] Sodium Chloride 0.9% 1, 900 000 ml @ 75 mls/hr IV . [id number] [facility] Rx#:[id number] Output: Urine 1200 Other: Voiding Method Indwelling Catheter Indwelling Catheter Indwelling Catheter # Bowel Movements 1 - Labs CBC & Chem 7: 05/29/21 10:02 05/28/21 06:29 Labs: Microbiology - Last 24 Hours (Table) 05/28/21 05:00 Urine Culture - Final Urine,Voided Escherichia coli
[2021-05-31 14:56] VITALS: BMI 17.4
[2021-05-31] MEDS: ACETAMINOPHEN TAB 325 MG TAB PO PRN (15:12)
--- NOTE | 2021-06-02 15:09 | PN ---
PROGRESS NOTE Stage III right heel pressure ulcer. Sacral ulcer, stage II to III. Protein-calorie malnutrition, severe. MMODL / IJN: [id number] /
== END 2021-05-31 18:20 | disposition home or self-care (01) | DRG 689 ==
LOC: EC 18:26 → 5NMEDONC 20:27 → OBSVTOIN 05-29 11:06
PROVIDERS: ADMIT Family Medicine; ATTEND Family Medicine
DX: N39.0 Urinary tract infection, site not specified (principal); E43 Unspecified severe protein-calorie malnutrition; L89.613 Pressure ulcer of right heel, stage 3; Z16.23 Resistance to quinolones and fluoroquinolones; L89.152 Pressure ulcer of sacral region, stage 2; F03.90 Unspecified dementia, unspecified severity, without behavioral disturbance, psychotic disturbance, mood disturbance, and anxiety; I50.9 Heart failure, unspecified; B96.20 Unspecified Escherichia coli [E. coli] as the cause of diseases classified elsewhere; J44.9 Chronic obstructive pulmonary disease, unspecified; D64.9 Anemia, unspecified; R31.0 Gross hematuria; N32.3 Diverticulum of bladder; R32 Unspecified urinary incontinence; E03.9 Hypothyroidism, unspecified; K21.9 Gastro-esophageal reflux disease without esophagitis; Z79.82 Long term (current) use of aspirin; Z79.890 Hormone replacement therapy; Z79.899 Other long term (current) drug therapy; Z87.440 Personal history of urinary (tract) infections; Z90.11 Acquired absence of right breast and nipple; Z85.3 Personal history of malignant neoplasm of breast; Z98.42 Cataract extraction status, left eye; Z98.41 Cataract extraction status, right eye; Z87.81 Personal history of (healed) traumatic fracture; Z87.19 Personal history of other diseases of the digestive system; Z98.890 Other specified postprocedural states; Z88.1 Allergy status to other antibiotic agents; Z80.3 Family history of malignant neoplasm of breast; Z80.8 Family history of malignant neoplasm of other organs or systems; Z82.49 Family history of ischemic heart disease and other diseases of the circulatory system
CPT/HCPCS: 36415; 74178; 74400; 76856; 80053; 81001; 83735; 85025; 85610; 85730; 86850; 86900; 86901; 87077; 87086; 87186; 94640; 99285

== ENCOUNTER 2021-09-14 12:36 | Emergency (ER) | payer MEDICARE ==
[2021-09-14 12:43] VITALS: BP 124/71; PULSE 77; RESP 18; TEMP 97.6
[2021-09-14] MEDS ORDERED: SODIUM CHLORIDE 0.9% 500 ML 500 ML IV STA (12:50)
[2021-09-14 13:23] LABS: Basophils # (A) 0.1 k/uL (0-0.2); Basophils % (A) 1 %; Eosinophils # (A) 0.4 k/uL (0-0.7); Eosinophils % (A) 4 %; Hypochromasia Slight; Lymphocytes # (A) 2.6 k/uL (1.0-4.8); Lymphocytes % (A) 25 %; MCH 27.1 pg (25.0-35.0); MCHC 30.5 g/dL (31.0-37.0); MCV 89.1 fL (80.0-100.0); Monocytes # (A) 0.5 k/uL (0-1.0); Monocytes % (A) 4 %; Neutrophils # (A) 6.6 k/uL (1.3-7.7); Neutrophils % (A) 64 %; Platelet Count 495 k/uL (150-450); RBC 4.04 m/uL (3.80-5.40); RDW 15.9 % (11.5-15.5); WBC 10.3 k/uL (3.8-10.6)
--- NOTE | 2021-09-14 13:24 | ED ---
General Adult HPI - General Chief complaint: Weakness Stated complaint: failure to thrive Time Seen by Provider: 09/14/21 12:44 Source: patient, EMS, RN notes reviewed, old records reviewed Mode of arrival: EMS - History of Present Illness Initial comments: This is an 86-year-old female who is brought in by EMS from her [facility] home. They state that the staff thought she was generally weak and also wasn't eating for even the last night she was having ice cream. When patient arrived she had no complaints she denied any chest pain or abdominal pain patient denies any shortness of breath or difficulty breathing. Patient denied any headache patient denies lightheadedness or dizziness. Patient was requesting some food to eat in the emergency department on arrival. There is no history of any fevers or chills. Patient denies feeling any weakness in her baseline. No other history is available no family or caregiver came with the patient. - Related Data Home Medications Medication Instructions Recorded Confirmed Levothyroxine Sodium [Synthroid] 50 mcg PO DAILY@0800 04/01/17 05/26/21 Multivitamins, Thera [Multivitamin 1 tab PO DAILY@79911/02/19 05/26/21 (formulary)] Omeprazole 40 mg PO DAILY@79911/02/19 05/26/21 atenoloL 25 mg PO DAILY@79911/02/19 05/26/21 Ipratropium-Albuterol Nebulize 3 ml INHALATION RT-BID@799,199901/06/21 05/26/21 [Duoneb 0.5 mg-3 mg/3 ml Soln] Sennosides-Docusate Sodium 1 tab PO DAILY@79901/06/21 05/26/21 [Senokot-S] Aspirin EC [Ecotrin Low Dose] 81 mg PO DAILY@79903/07/21 05/26/21 Silver Sulfadiazine [SSD 1% Cream] 1 applic TOPICAL BID@03/07/21 05/26/21 Acetaminophen [Tylenol] 650 mg PO BID@799,199905/26/21 05/26/21 Acetaminophen [Tylenol] 650 mg PO Q8H PRN 05/26/21 05/26/21 Previous Rx's Medication Instructions Recorded Albuterol Inhaler [Ventolin Hfa 2 puff INHALATION RT-Q4H PRN puff 07/08/20 Inhaler] HYDROcodone/APAP 5-325MG [[place] 1 tab PO Q6HR PRN 3 Days #12 tab 01/11/21 5-325] Amoxic-Pot Clav 875-125Mg 1 tab PO BID 14 Days #28 tab 05/31/21 [Augmentin 875-125] Sulfamethox-Tmp 800-160Mg [Bactrim 1 each PO Q12HR #14 tab 09/14/21 DS 800-160 mg] Allergies Allergy/AdvReac Type Severity Reaction Status Date / Time cefuroxime Allergy Intermediate Hives Verified 05/26/21 19:22 Review of Systems ROS Statement: Those systems with pertinent positive or pertinent negative responses have been documented in the HPI. ROS Other: All systems not noted in ROS Statement are negative. 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 Past Anesthesia/Blood Transfusion Reactions: No Reported Reaction Past Psychological History: No Psychological Hx Reported Smoking Status: Unknown if ever smoked Past Alcohol Use History: None Reported Past Drug Use History: None Reported - Past Family History Father Additional Family Medical History / Comment(s): heart disease. Mother Additional Family Medical History / Comment(s): heart disease. Sister(s) Family Medical History: Cancer Additional Family Medical History / Comment(s): 3 SISTERS WITH BREAST CA General Exam - General Exam Comments Initial Comments: GENERAL: Patient is very skinny looks somewhat cachectic.. Patient is nontoxic and well-hydrated and is in no acute distress. ENT: Neck is soft and supple. No significant lymphadenopathy is noted. Oropharynx is clear. Moist mucous membranes. Neck has full range of motion without eliciting any pain. EYES: The sclera were anicteric and conjunctiva were pink and moist. Extraocular mov ements were intact and pupils were equal round and reactive to light. Eyelids were unremarkable. PULMONARY: Unlabored respirations. Good breath sounds bilaterally. No audible rales rhonchi or wheezing was noted. CARDIOVASCULAR: There is a regular rate and rhythm without any murmurs gallops or rubs. ABDOMEN: Soft and nontender with normal bowel sounds. No palpable organomegaly was noted. There is no palpable pulsatile mass. SKIN: Skin is clear with no lesions or rashes and otherwise unremarkable. NEUROLOGIC: Patient is alert and oriented 2. Cranial nerves II through XII are grossly intact. Motor and sensory are also intact. Normal speech, volume and content. Symmetrical smile. MUSCULOSKELETAL: Normal extremities with adequate strength and full range of motion. No lower extremity swelling or edema. No calf tenderness. LYMPHATICS: No significant lymphadenopathy is noted PSYCHIATRIC: Normal psychiatric evaluation. Course Vital Signs 09/14/21 12:39 Temperature 97.6 F Pulse Rate 77 Respiratory 18 Rate Blood Pressure 124/71 O2 Sat by Pulse 99 Oximetry Medical Decision Making - Medical Decision Making EKG shows sinus rhythm at a rate of 60 bpm QRS is 70 QT interval 414 QTC is 435. Patient's EKG shows no ST segment elevation or depression. I went back into the room and daughter was at the bedside and daughter stated that the patient was at her baseline. Her patient had a urinary tract infection I gave the patient Bactrim DS 2 pills. Daughter stated that the patient would be closely watched at her adult posture care was comfortable taking her home at this time. Patient was eating a sandwich and chips and Jell-O. When I was in the room. - Lab Data Result diagrams: 09/14/21 12:50 09/14/21 12:50 Lab Results 09/14/21 09/14/21 09/14/21 Range/Units 12:50 12:50 12:50 WBC 10.3 (3.8-10.6) k/uL RBC 4.04 (3.80-5.40) m/uL Hgb 11.0 L (11.4-16.0) gm/dL Hct 36.0 (34.0-46.0) % MCV 89.1 (80.0-100.0) fL MCH 27.1 (25.0-35.0) pg MCHC 30.5 L (31.0-37.0) g/dL RDW 15.9 H (11.5-15.5) % Plt Count 495 H (150-450) k/uL MPV 7.0 Neutrophils % 64 % Lymphocytes % 25 % Monocytes % 4 % Eosinophils % 4 % Basophils % 1 % Neutrophils # 6.6 (1.3-7.7) k/uL Lymphocytes # 2.6 (1.0-4.8) k/uL Monocytes # 0.5 (0-1.0) k/uL Eosinophils # 0.4 (0-0.7) k/uL Basophils # 0.1 (0-0.2) k/uL Hypochromasia Slight Sodium 137 (137-145) mmol/L Potassium 4.5 (3.5-5.1) mmol/L Chloride 107 (98-107) mmol/L Carbon Dioxide 22 (22-30) mmol/L Anion Gap 8 mmol/L BUN 21 H (7-17) mg/dL Creatinine 0.64 (0.52-1.04) mg/dL Est GFR (CKD-EPI)AfAm >90 (>60 ml/min/1.73 sqM) Est GFR (CKD-EPI)NonAf 80 (>60 ml/min/1.73 sqM) Glucose 91 (74-99) mg/dL Calcium 8.6 (8.4-10.2) mg/dL Magnesium 2.1 (1.6-2.3) mg/dL Total Bilirubin 0.4 (0.2-1.3) mg/dL AST 23 (14-36) U/L ALT 8 (4-34) U/L Alkaline Phosphatase 55 (38-126) U/L Troponin I <0.012 (0.000-0.034) ng/mL Total Protein 7.2 (6.3-8.2) g/dL Albumin 3.4 L (3.5-5.0) g/dL Urine Color Urine Appearance (Clear) Urine pH (5.0-8.0) Ur Specific [place] (1.001-1.035) Urine Protein (Negative) Urine Glucose (UA) (Negative) Urine Ketones (Negative) Urine Blood (Negative) Urine Nitrite (Negative) Urine Bilirubin (Negative) Urine Urobilinogen (<2.0) mg/dL Ur Leukocyte Esterase (Negative) Urine RBC (0-5) /hpf Urine WBC (0-5) /hpf Urine WBC Clumps (None) /hpf Ur Squamous Epith Cells (0-4) /hpf Urine Bacteria (None) /hpf Urine Mucus (None) /hpf 09/14/21 Range/Units 13:25 WBC (3.8-10.6) k/uL RBC (3.80-5.40) m/uL Hgb (11.4-16.0) gm/dL Hct (34.0-46.0) % MCV (80.0-100.0) fL MCH (25.0-35.0) pg MCHC (31.0-37.0) g/dL RDW (11.5-15.5) % Plt Count (150-450) k/uL MPV Neutrophils % % Lymphocytes % % Monocytes % % Eosinophils % % Basophils % % Neutrophils # (1.3-7.7) k/uL Lymphocytes # (1.0-4.8) k/uL Monocytes # (0-1.0) k/uL Eosinophils # (0-0.7) k/uL Basophils # (0-0.2) k/uL Hypochromasia Sodium (137-145) mmol/L Potassium (3.5-5.1) mmol/L Chloride (98-107) mmol/L Carbon Dioxide (22-30) mmol/L Anion Gap mmol/L BUN (7-17) mg/dL Creatinine (0.52-1.04) mg/dL Est GFR (CKD-EPI)AfAm (>60 ml/min/1.73 sqM) Est GFR (CKD-EPI)NonAf (>60 ml/min/1.73 sqM) Glucose (74-99) mg/dL Calcium (8.4-10.2) mg/dL Magnesium (1.6-2.3) mg/dL Total Bilirubin (0.2-1.3) mg/dL AST (14-36) U/L ALT (4-34) U/L Alkaline Phosphatase (38-126) U/L Troponin I (0.000-0.034) ng/mL Total Protein (6.3-8.2) g/dL Albumin (3.5-5.0) g/dL Urine Color Yellow Urine Appearance Turbid H (Clear) Urine pH 5.5 (5.0-8.0) Ur Specific [place] 1.018 (1.001-1.035) Urine Protein 1+ H (Negative) Urine Glucose (UA) Negative (Negative) Urine Ketones Negative (Negative) Urine Blood Moderate H (Negative) Urine Nitrite Negative (Negative) Urine Bilirubin Negative (Negative) Urine Urobilinogen <2.0 (<2.0) mg/dL Ur Leukocyte Esterase Large H (Negative) Urine RBC 12 H (0-5) /hpf Urine WBC >182 H (0-5) /hpf Urine WBC Clumps Moderate H (None) /hpf Ur Squamous Epith Cells <1 (0-4) /hpf Urine Bacteria Many H (None) /hpf Urine Mucus Rare H (None) /hpf Disposition Clinical Impression: Urinary tract infection Disposition: HOME SELF-CARE Condition: Good Instructions (If sedation given, give patient instructions): Urinary Tract Infection in Women (ED) Prescriptions: Sulfamethox-Tmp 800-160Mg [Bactrim DS 800-160 mg] 1 each PO Q12HR #14 tab Is patient prescribed a controlled substance at d/c from ED?: No Referrals: None,Stated [REFERRING] - 1-2 days Time of Disposition: 15:36
[2021-09-14 13:35] LABS: ALT 8 U/L (4-34); African American GFR (CKD) >90 (>60 ml/min/1.73 sqM); Albumin 3.4 g/dL (3.5-5.0); Anion Gap 8 mmol/L; Blood Urea Nitrogen 21 mg/dL (7-17); Calcium 8.6 mg/dL (8.4-10.2); Carbon Dioxide 22 mmol/L (22-30); Chloride 107 mmol/L (98-107); Glucose 91 mg/dL (74-99); Non-African American GFR(CKD) 80 (>60 ml/min/1.73 sqM); Sodium 137 mmol/L (137-145); Total Bilirubin 0.4 mg/dL (0.2-1.3); Total Protein 7.2 g/dL (6.3-8.2)
[2021-09-14 13:39] LABS: AST 23 U/L (14-36); Alkaline Phosphatase 55 U/L (38-126); Magnesium 2.1 mg/dL (1.6-2.3); Potassium 4.5 mmol/L (3.5-5.1)
[2021-09-14 13:44] LABS: Appearance,Urine Turbid (Clear); Bacteria,Urine Many /hpf; Bilirubin,Urine Negative (Negative); Blood,Urine Moderate (Negative); Color,Urine Yellow; Glucose,Urine (UA) Negative (Negative); Ketones,Urine Negative (Negative); Leukocyte Esterase,Urine Large (Negative); Mucus,Urine Rare /hpf; Nitrite,Urine Negative (Negative); PH, Urine 5.5 (5.0-8.0); Protein,Urine 1+ (Negative); RBC,Urine 12 /hpf (0-5); Specific Gravity,Urine 1.018 (1.001-1.035); Squamous Epithelial Cell,Urine <1 /hpf (0-4); Urobilinogen,Urine <2.0 mg/dL (<2.0); WBC,Urine >182 /hpf (0-5)
--- NOTE | 2021-09-14 14:42 | XR ---
EXAMINATION TYPE: XR chest 2V DATE OF EXAM: 09/14/2021 COMPARISON: 03/07/2021 HISTORY: 86-year-old female with weakness TECHNIQUE: AP and lateral views FINDINGS: The heart is mildly enlarged. Calcified granuloma at the posterior left base. Patchy posterior basila r opacity on the lateral view. Ectatic/tortuous thoracic aorta. Rightward patient rotation. Pulmonary vasculature within normal limits. Mild hyperinflation. IMPRESSION: 1. Patchy posterior basilar opacity on the lateral view. Correlate for atelectasis versus pneumonia. 2. COPD. Borderline heart size. Evidence of prior granulomatous disease.
[2021-09-14] MEDS ORDERED: SULFAMETHOX-TMP 800-160MG 1 EACH TAB PO STA (15:00)
== END 2021-09-14 18:02 | disposition home or self-care (01) ==
LOC: EC 12:36
DX: N39.0 Urinary tract infection, site not specified (principal); J44.9 Chronic obstructive pulmonary disease, unspecified; K21.9 Gastro-esophageal reflux disease without esophagitis; E07.9 Disorder of thyroid, unspecified; Z79.899 Other long term (current) drug therapy; Z79.83 Long term (current) use of bisphosphonates; Z88.1 Allergy status to other antibiotic agents
CPT/HCPCS: 36415; 71046; 80053; 81001; 83735; 84484; 85025; 87077; 87086; 87186; 93005; 99285

== ENCOUNTER 2022-03-29 13:28 | Inpatient (IN) | payer MEDICARE ==
--- NOTE | 2022-03-29 13:53 | ED ---
General Adult HPI - General Source: patient, family, RN notes reviewed Mode of arrival: wheelchair Limitations: no limitations <Damon Gay - Last Filed: 03/29/22 13:52> <Niall Fan - Last Filed: 03/29/22 18:34> - General Stated complaint: change in mental status Time Seen by Provider: 03/29/22 13:42 - History of Present Illness Initial comments: 78-year-old female presents emergency Department with chief complaint of weakness. Patient is currently envisions custodial and sent here for evaluation. Patient presents with son stating that she's had decreased oral intake, generalized weakness, decreased urination. No recent infections. She denies any chest pain or shortness breath she had a complex week which has resolved. They're concerned that she may be dehydrated. (Damon Gay) This is an 86-year-old female who presents emergency Department with the complaint of altered mental status increased weakness and decreased oral intake. According to family this is been ongoing for last few days but much worse today. Patient has not had any fever or chills patient does not complain of any pain patient denies any abdominal pain or chest pain patient denies any difficulty breathing. Patient denies any vomiting or diarrhea. (Niall Fan) - Related Data Home Medications Medication Instructions Recorded Confirmed Levothyroxine Sodium [Synthroid] 50 mcg PO DAILY@0800 04/01/17 05/26/21 Multivitamins, Thera [Multivitamin 1 tab PO DAILY@79911/02/19 05/26/21 (formulary)] Omeprazole 40 mg PO DAILY@79911/02/19 05/26/21 atenoloL 25 mg PO DAILY@79911/02/19 05/26/21 Ipratropium-Albuterol Nebulize 3 ml INHALATION RT-BID@01/06/21 05/26/21 [Duoneb 0.5 mg-3 mg/3 ml Soln] Sennosides-Docusate Sodium 1 tab PO DAILY@79901/06/21 05/26/21 [Senokot-S] Aspirin EC [Ecotrin Low Dose] 81 mg PO DAILY@0800 03/07/21 05/26/21 Silver Sulfadiazine [SSD 1% Cream] 1 applic TOPICAL BID@0800,199903/07/21 05/26/21 Acetaminophen [Tylenol] 650 mg PO BID@0800,199905/26/21 05/26/21 Acetaminophen [Tylenol] 650 mg PO Q8H PRN 05/26/21 05/26/21 Previous Rx's Medication Instructions Recorded Albuterol Inhaler [Ventolin Hfa 2 puff INHALATION RT-Q4H PRN puff 07/08/20 Inhaler] HYDROcodone/APAP 5-325MG [Calvin 1 tab PO Q6HR PRN 3 Days #12 tab 01/11/21 5-325] Amoxic-Pot Clav 875-125Mg 1 tab PO BID 14 Days #28 tab 05/31/21 [Augmentin 875-125] Sulfamethox-Tmp 800-160Mg [Bactrim 1 each PO Q12HR #14 tab 09/14/21 DS 800-160 mg] Allergies Allergy/AdvReac Type Severity Reaction Status Date / Time cefuroxime Allergy Intermediate Hives Verified 03/29/22 15:10 Review of Systems ROS Other: All systems not noted in ROS Statement are negative. <Damon Gay - Last Filed: 03/29/22 13:52> ROS Other: All systems not noted in ROS Statement are negative. <Niall Fan - Last Filed: 03/29/22 18:34> ROS Statement: Those systems with pertinent positive or pertinent negative responses have been documented in the HPI. 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 Past Anesthesia/Blood Transfusion Reactions: No Reported Reaction Past Psychological History: No Psychological Hx Reported Smoking Status: Unknown if ever smoked Past Alcohol Use History: None Reported Past Drug Use History: None Reported - Past Family History Father Additional Family Medical History / Comment(s): heart disease. Mother Additional Family Medical History / Comment(s): heart disease. Sister(s) Family Medical History: Cancer Additional Family Medical History / Comment(s): 3 SISTERS WITH BREAST CA <Damon Gay - Last Filed: 03/29/22 13:52> General Exam Limitations: no limitations <Damon Gay - Last Filed: 03/29/22 13:52> <Niall Fan - Last Filed: 03/29/22 18:34> - General Exam Comments Initial Comments: GENERAL: Patient is well-developed and well-nourished. Patient is nontoxic and well- hydrated and is in mild distress. ENT: Neck is soft and supple. No significant lymphadenopathy is noted. Oropharynx is clear. Dry mucous membranes. Neck has full range of motion without eliciting any pain. . EYES: The sclera were anicteric and conjunctiva were pink and moist. Extraocular movements were intact and pupils were equal round and reactive to light. Eyelids were unremarkable. PULMONARY: Unlabored respirations. Good breath sounds bilaterally. No audible rales rhonchi or wheezing was noted. CARDIOVASCULAR: There is a regular rate and rhythm without any murmurs gallops or rubs. ABDOMEN: Soft and nontender with normal bowel sounds. SKIN: Skin is clear with no lesions or rashes and otherwise unremarkable. NEUROLOGIC: Patient is alert and oriented 1. Cranial nerves II through XII are grossly intact. Motor and sensory are also intact. Normal speech, volume and content. Symmetrical smile. MUSCULOSKELETAL: Normal extremities with adequate strength and full range of motion. No lower extremity swelling or edema. No calf tenderness. LYMPHATICS: No significant lymphadenopathy is noted PSYCHIATRIC: Normal psychiatric evaluation. (Niall Fan) Course Vital Signs 03/29/22 03/29/22 13:43 16:06 Temperature 97.6 F Pulse Rate 88 77 Respiratory 16 18 Rate Blood Pressure 120/73 140/67 O2 Sat by Pulse 99 Oximetry Medical Decision Making - Lab Data Result diagrams: 03/29/22 14:58 03/29/22 14:58 <Niall Fan - Last Filed: 03/29/22 18:34> - Medical Decision Making EKG was interpreted by me. EKG shows normal sinus rhythm at 89 bpm [place] interval 162 QRS is 74 QT interval 370 QTC is 450. Patient's EKG shows no ST segment elevation or depression. Was pt. sent in by a medical professional or institution? @ -No Did you speak to anyone other than the patient for history? @ -Family Did you review nursing and triage notes? @ -Agree with nursing in triage notes Were old charts reviewed? @ -Review old EKGs and prior admission notes Differential Diagnosis? @ -Differential Altered Mental Status: Hypoglycemia, DKA, hypercapnia, ETOH, overdose, CO poisoning, trauma, myxedema coma, HTN encephalopathy, infection, encephalitis, psychosis, intercranial hemorrhage, hepatic encephalopathy, meningitis, CVA, this is not meant to be an all-inclusive list EKG interpreted by me (3pts min.)? @ -Is above X-rays interpreted by me (1pt min.)? @ -Chest x-ray was interpreted by me shows no acute abnormality. CT interpreted by me (1pt min.)? @ -None U/S interpreted by me (1pt. min.)? @ -None What testing was considered but not performed? (CT, X-rays, U/S, labs)? Why? @ -I contacted CT of the brain for altered mental status however the patient according to family had done this before when she is dehydrated so I gave her some fluids and reactive diameter and she was getting better and more alert What meds were considered but not given? Why? @ -None Did you discuss the management of the patient with other professionals? @ -I spoke with Dr. Zhong he agreed to admit the patient minute the patient wrote admitting orders Did you reconcile home meds? @ -None Was smoking cessation discussed for >3mins.? @ -None Was critical care preformed (if so, how long)? @ -None Were there social determinants of health that impacted care today? How? (Homelessness, low income, unemployed, alcoholism, drug addiction, transportation, low edu. Level, literacy, decrease access to med. care, skilled nursing, rehab)? @ -Known Was there de-escalation of care discussed even if they declined? (Discuss DNR or withdrawal of care, Hospice)? @ -No What co-morbidities impacted this encounter? (DM, HTN, Smoking, COPD, CAD, Cancer, CVA, Hep., AIDS, mental health diagnosis, sleep apnea, morbid obesity)? @ -No Was patient admitted / discharged? @ -Patient is going to be admitted for altered mental status urinary tract infection dehydration. Patient did receive fluids and antiemetics in the emergency department. I went back and reexamined her patient was becoming more awake and alert and family was in agreement with this. I spoke with Dr. Zhong he agreed to admit the patient admitted the patient I wrote admitting orders Undiagnosed new problem with uncertain prognosis? @ -None Drug Therapy requiring intensive monitoring for toxicity (Heparin, Nitro, Insulin, Cardizem)? @ -No Were any procedures done? @ -No Diagnosis/symptom? @ -Urinary tract infection Acute, or Chronic, or Acute on Chronic? @ -Acute Uncomplicated (without systemic symptoms) or Complicated (systemic symptoms)? @ -Complicated Side effects of treatment? @ -None Exacerbation, Progression, or Severe Exacerbation] @ -No Poses a threat to life or bodily function? @ -No Diagnosis/symptom? @ -Altered mental status Acute, or Chronic, or Acute on Chronic? @ -Acute Uncomplicated (without systemic symptoms) or Complicated (systemic symptoms)? @ -Uncomplicated Side effects of treatment? @ -None Exacerbation, Progression, or Severe Exacerbation] @ -No Poses a threat to life or bodily function? @ -No Diagnosis/symptom? @ -Dehydration Acute, or Chronic, or Acute on Chronic? @ -Acute Uncomplicated (without systemic symptoms) or Complicated (systemic symptoms)? @ -Uncomplicated Side effects of treatment? @ -None Exacerbation, Progression, or Severe Exacerbation] @ -No Poses a threat to life or bodily function? @ -No (Niall Fan) - Lab Data Lab Results 03/29/22 03/29/22 03/29/22 Range/Units 14:58 14:58 14:58 WBC 10.0 (3.8-10.6) k/uL RBC 4.43 (3.80-5.40) m/uL Hgb 13.1 (11.4-16.0) gm/dL Hct 40.3 (34.0-46.0) % MCV 91.1 (80.0-100.0) fL MCH 29.6 (25.0-35.0) pg MCHC 32.5 (31.0-37.0) g/dL RDW 14.5 (11.5-15.5) % Plt Count 320 (150-450) k/uL MPV 7.6 Neutrophils % 69 % Lymphocytes % 19 % Monocytes % 6 % Eosinophils % 3 % Basophils % 1 % Neutrophils # 6.9 (1.3-7.7) k/uL Lymphocytes # 1.9 (1.0-4.8) k/uL Monocytes # 0.6 (0-1.0) k/uL Eosinophils # 0.3 (0-0.7) k/uL Basophils # 0.1 (0-0.2) k/uL PT 9.7 (9.0-12.0) sec INR 0.9 (<1.2) APTT 21.6 L (22.0-30.0) sec Sodium 139 (137-145) mmol/L Potassium 4.3 (3.5-5.1) mmol/L Chloride 106 (98-107) mmol/L Carbon Dioxide 25 (22-30) mmol/L Anion Gap 8 mmol/L BUN 24 H (7-17) mg/dL Creatinine 0.84 (0.52-1.04) mg/dL Est GFR (CKD-EPI)AfAm 72 (>60 ml/min/1.73 sqM) Est GFR (CKD-EPI)NonAf 62 (>60 ml/min/1.73 sqM) Glucose 155 H (74-99) mg/dL Plasma Lactic Acid Teofilo (0.7-2.0) mmol/L Calcium 9.1 (8.4-10.2) mg/dL Magnesium 2.1 (1.6-2.3) mg/dL Total Bilirubin 0.4 (0.2-1.3) mg/dL AST 26 (14-36) U/L ALT 19 (4-34) U/L Alkaline Phosphatase 94 (38-126) U/L Troponin I (0.000-0.034) ng/mL Total Protein 7.9 (6.3-8.2) g/dL Albumin 3.9 (3.5-5.0) g/dL Urine Color Urine Appearance (Clear) Urine pH (5.0-8.0) Ur Specific [place] (1.001-1.035) Urine Protein (Negative) Urine Glucose (UA) (Negative) Urine Ketones (Negative) Urine Blood (Negative) Urine Nitrite (Negative) Urine Bilirubin (Negative) Urine Urobilinogen (<2.0) mg/dL Ur Leukocyte Esterase (Negative) Urine RBC (0-5) /hpf Urine WBC (0-5) /hpf Urine WBC Clumps (None) /hpf Ur Squamous Epith Cells (0-4) /hpf Urine Bacteria (None) /hpf Urine Mucus (None) /hpf Urine Yeast (Budding) (None) /hpf Urine Opiates Screen (NotDetected) Ur Oxycodone Screen (NotDetected) Urine Methadone Screen (NotDetected) Ur Propoxyphene Screen (NotDetected) Ur Barbiturates Screen (NotDetected) U Tricyclic Antidepress (NotDetected) Ur Phencyclidine Scrn (NotDetected) Ur Amphetamines Screen (NotDetected) U Methamphetamines Scrn (NotDetected) U Benzodiazepines Scrn (NotDetected) Urine Cocaine Screen (NotDetected) U Marijuana (THC) Screen (NotDetected) 03/29/22 03/29/22 03/29/22 Range/Units 14:58 15:15 16:02 WBC (3.8-10.6) k/uL RBC (3.80-5.40) m/uL Hgb (11.4-16.0) gm/dL Hct (34.0-46.0) % MCV (80.0-100.0) fL MCH (25.0-35.0) pg MCHC (31.0-37.0) g/dL RDW (11.5-15.5) % Plt Count (150-450) k/uL MPV Neutrophils % % Lymphocytes % % Monocytes % % Eosinophils % % Basophils % % Neutrophils # (1.3-7.7) k/uL Lymphocytes # (1.0-4.8) k/uL Monocytes # (0-1.0) k/uL Eosinophils # (0-0.7) k/uL Basophils # (0-0.2) k/uL PT (9.0-12.0) sec INR (<1.2) APTT (22.0-30.0) sec Sodium (137-145) mmol/L Potassium (3.5-5.1) mmol/L Chloride (98-107) mmol/L Carbon Dioxide (22-30) mmol/L Anion Gap mmol/L BUN (7-17) mg/dL Creatinine (0.52-1.04) mg/dL Est GFR (CKD-EPI)AfAm (>60 ml/min/1.73 sqM) Est GFR (CKD-EPI)NonAf (>60 ml/min/1.73 sqM) Glucose (74-99) mg/dL Plasma Lactic Acid Te[place]ilo 1.5 (0.7-2.0) mmol/L Calcium (8.4-10.2) mg/dL Magnesium (1.6-2.3) mg/dL Total Bilirubin (0.2-1.3) mg/dL AST (14-36) U/L ALT (4-34) U/L Alkaline Phosphatase (38-126) U/L Troponin I <0.012 (0.000-0.034) ng/mL Total Protein (6.3-8.2) g/dL Albumin (3.5-5.0) g/dL Urine Color Yellow Urine Appearance Turbid H (Clear) Urine pH 5.5 (5.0-8.0) Ur Specific [place] 1.015 (1.001-1.035) Urine Protein 2+ H (Negative) Urine Glucose (UA) Negative (Negative) Urine Ketones Negative (Negative) Urine Blood Moderate H (Negative) Urine Nitrite Negative (Negative) Urine Bilirubin Negative (Negative) Urine Urobilinogen <2.0 (<2.0) mg/dL Ur Leukocyte Esterase Large H (Negative) Urine RBC >182 H (0-5) /hpf Urine WBC >182 H (0-5) /hpf Urine WBC Clumps Many H (None) /hpf Ur Squamous Epith Cells 22 H (0-4) /hpf Urine Bacteria Many H (None) /hpf Urine Mucus Occasional H (None) /hpf Urine Yeast (Budding) Many H (None) /hpf Urine Opiates Screen (NotDetected) Ur Oxycodone Screen (NotDetected) Urine Methadone Screen (NotDetected) Ur Propoxyphene Screen (NotDetected) Ur Barbiturates Screen (NotDetected) U Tricyclic Antidepress (NotDetected) Ur Phencyclidine Scrn (NotDetected) Ur Amphetamines Screen (NotDetected) U Methamphetamines Scrn (NotDetected) U Benzodiazepines Scrn (NotDetected) Urine Cocaine Screen (NotDetected) U Marijuana (THC) Screen (NotDetected) 03/29/22 Range/Units 16:02 WBC (3.8-10.6) k/uL RBC (3.80-5.40) m/uL Hgb (11.4-16.0) gm/dL Hct (34.0-46.0) % MCV (80.0-100.0) fL MCH (25.0-35.0) pg MCHC (31.0-37.0) g/dL RDW (11.5-15.5) % Plt Count (150-450) k/uL MPV Neutrophils % % Lymphocytes % % Monocytes % % Eosinophils % % Basophils % % Neutrophils # (1.3-7.7) k/uL Lymphocytes # (1.0-4.8) k/uL Monocytes # (0-1.0) k/uL Eosinophils # (0-0.7) k/uL Basophils # (0-0.2) k/uL PT (9.0-12.0) sec INR (<1.2) APTT (22.0-30.0) sec Sodium (137-145) mmol/L Potassium (3.5-5.1) mmol/L Chloride (98-107) mmol/L Carbon Dioxide (22-30) mmol/L Anion Gap mmol/L BUN (7-17) mg/dL Creatinine (0.52-1.04) mg/dL Est GFR (CKD-EPI)AfAm (>60 ml/min/1.73 sqM) Est GFR (CKD-EPI)NonAf (>60 ml/min/1.73 sqM) Glucose (74-99) mg/dL Plasma Lactic Acid Te[place] (0.7-2.0) mmol/L Calcium (8.4-10.2) mg/dL Magnesium (1.6-2.3) mg/dL Total Bilirubin (0.2-1.3) mg/dL AST (14-36) U/L ALT (4-34) U/L Alkaline Phosphatase (38-126) U/L Troponin I (0.000-0.034) ng/mL Total Protein (6.3-8.2) g/dL Albumin (3.5-5.0) g/dL Urine Color Urine Appearance (Clear) Urine pH (5.0-8.0) Ur Specific [place] (1.001-1.035) Urine Protein (Negative) Urine Glucose (UA) (Negative) Urine Ketones (Negative) Urine Blood (Negative) Urine Nitrite (Negative) Urine Bilirubin (Negative) Urine Urobilinogen (<2.0) mg/dL Ur Leukocyte Esterase (Negative) Urine RBC (0-5) /hpf Urine WBC (0-5) /hpf Urine WBC Clumps (None) /hpf Ur Squamous Epith Cells (0-4) /hpf Urine Bacteria (None) /hpf Urine Mucus (None) /hpf Urine Yeast (Budding) (None) /hpf Urine Opiates Screen Not Detected (NotDetected) Ur Oxycodone Screen Not Detected (NotDetected) Urine Methadone Screen Not Detected (NotDetected) Ur Propoxyphene Screen Not Detected (NotDetected) Ur Barbiturates Screen Not Detected (NotDetected) U Tricyclic Antidepress Not Detected (NotDetected) Ur Phencyclidine Scrn Not Detected (NotDetected) Ur Amphetamines Screen Not Detected (NotDetected) U Methamphetamines Scrn Not Detected (NotDetected) U Benzodiazepines Scrn Not Detected (NotDetected) Urine Cocaine Screen Not Detected (NotDetected) U Marijuana (THC) Screen Not Detected (NotDetected) Disposition <Damon Gay - Last Filed: 03/29/22 13:52> Time of Disposition: 18:23 <Niall Fan - Last Filed: 03/29/22 18:34> Clinical Impression: Urinary tract infection, Dehydration, Altered mental status Disposition: ADMITTED IP TO THIS HOSP Referrals: Victor Hugo Zhong MD [Primary Care Provider] - 1-2 days
--- NOTE | 2022-03-29 14:58 | XR ---
EXAMINATION TYPE: XR chest 2V DATE OF EXAM: 03/29/2022 COMPARISON: 09/14/2021, 01/07/2021, 07/05/2020 INDICATION: Weakness TECHNIQUE: Frontal and lateral views of the chest are obtained. FINDINGS: The heart size is stable. Cardiac silhouette is stable. The pulmonary vasculature is normal. There is a nodule within the retrocardiac region measuring approximately 0.7 cm present previously. S mall nodule may be in the medial right upper lung field. Previous posterior consolidation has resolve d. IMPRESSION: 1. No acute pulmonary process. 2. Chronic appearing nodules. These were present in 2020, follow-up exam in 6 months is recommended.
[2022-03-29] MEDS ORDERED: SODIUM CHLORIDE 0.9% 1,000 ML IV ONE (15:08)
[2022-03-29 15:14] LABS: Albumin 3.9 g/dL (3.5-5.0); Calcium 9.1 mg/dL (8.4-10.2); Magnesium 2.1 mg/dL (1.6-2.3); Potassium 4.3 mmol/L (3.5-5.1); Total Bilirubin 0.4 mg/dL (0.2-1.3); Total Protein 7.9 g/dL (6.3-8.2)
[2022-03-29 15:16] LABS: Basophils # (A) 0.1 k/uL (0-0.2); Basophils % (A) 1 %; Eosinophils # (A) 0.3 k/uL (0-0.7); Eosinophils % (A) 3 %; HCT 40.3 % (34.0-46.0); HGB 13.1 gm/dL (11.4-16.0); Lymphocytes # (A) 1.9 k/uL (1.0-4.8); Lymphocytes % (A) 19 %; MCH 29.6 pg (25.0-35.0); MCHC 32.5 g/dL (31.0-37.0); MCV 91.1 fL (80.0-100.0); Mean Platelet Volume 7.6; Monocytes # (A) 0.6 k/uL (0-1.0); Monocytes % (A) 6 %; Neutrophils # (A) 6.9 k/uL (1.3-7.7); Neutrophils % (A) 69 %; Platelet Count 320 k/uL (150-450); RBC 4.43 m/uL (3.80-5.40); RDW 14.5 % (11.5-15.5)
[2022-03-29 15:23] LABS: INR 0.9 (<1.2); Prothrombin Time 9.7 sec (9.0-12.0)
[2022-03-29 15:24] LABS: Partial Thromboplastin Time 21.6 sec (22.0-30.0)
[2022-03-29 17:09] LABS: Appearance,Urine Turbid (Clear); Bacteria,Urine Many /hpf; Bilirubin,Urine Negative (Negative); Blood,Urine Moderate (Negative); Budding Yeast,Urine Many /hpf; Color,Urine Yellow; Glucose,Urine (UA) Negative (Negative); Ketones,Urine Negative (Negative); Leukocyte Esterase,Urine Large (Negative); Mucus,Urine Occasional /hpf; Nitrite,Urine Negative (Negative); PH, Urine 5.5 (5.0-8.0); Protein,Urine 2+ (Negative); RBC,Urine >182 /hpf (0-5); Squamous Epithelial Cell,Urine 22 /hpf (0-4); Urobilinogen,Urine <2.0 mg/dL (<2.0); WBC,Urine >182 /hpf (0-5)
[2022-03-29 17:10] LABS: Amphetamine Screen,Urine Not Detected (NotDetected); Barbiturate Screen,Urine Not Detected (NotDetected); Benzodiazepines Screen,Urine Not Detected (NotDetected); Cocaine Screen,Urine Not Detected (NotDetected); Methadone Screen, Urine Not Detected (NotDetected); Opiate Screen,Urine Not Detected (NotDetected); Oxycodone Screen, Urine Not Detected (NotDetected); Phencyclidine Screen,Urine Not Detected (NotDetected); Specific Gravity,Urine 1.015 (1.001-1.035); Tricyclic Antidepressant,Urine Not Detected (NotDetected); Urn Cannabinoid Scrn Not Detected (NotDetected)
[2022-03-29] MEDS ORDERED: LEVOFLOXACIN 750MG-D5W PMX 750 MG in DEXTROSE/WATER 1 150ML.BAG IVPB STA (17:56)
[2022-03-29] MEDS ORDERED: SODIUM CHLORIDE 0.9% 1,000 ML IV STA (18:36)
[2022-03-29] MEDS ORDERED: ACETAMINOPHEN TAB 325 MG TAB PO PRN (22:33)
[2022-03-29] MEDS ORDERED: ALBUTEROL NEBULIZED 2.5 MG/3 ML INHALATION PRN (22:33)
[2022-03-29] MEDS ORDERED: LOPERAMIDE 2 MG CAP PO PRN ×2 (22:33→22:39)
[2022-03-30] MEDS: LEVOTHYROXINE 50 MCG TAB PO SCH (06:03)
[2022-03-30] MEDS: PANTOPRAZOLE 40 MG TABLET PO SCH (06:03)
[2022-03-30] MEDS: atenoloL 25 MG TAB PO SCH (08:45)
[2022-03-30] MEDS: MULTIVITAMINS, THERA 1 EACH TAB PO SCH (08:45)
[2022-03-30] MEDS: SENNOSIDES-DOCUSATE SODIUM 1 EACH TAB PO SCH (08:45)
[2022-03-30] MEDS: FERROUS SULFATE 325 MG TAB PO SCH (08:45)
[2022-03-30] MEDS: ASPIRIN 81 MG PO SCH (08:46)
[2022-03-30] MEDS: IPRATROPIUM-ALBUTEROL 3 ML NEB INHALATION SCH ×2 (12:13→19:35)
[2022-03-30] MEDS ORDERED: LEVOFLOXACIN 750MG-D5W PMX 750 MG in DEXTROSE/WATER 1 150ML.BAG IVPB SCH (18:00)
--- NOTE | 2022-03-30 23:31 | HP ---
HISTORY AND PHYSICAL HISTORY OF PRESENT ILLNESS: An 86-year-old white female came to the emergency room complaining of weakness at detention due to increased obtundation, generalized weakness, decreased urination, admitted with urosepsis, much worse today. She has not had any fever or chills. Does not complain of any pain. No nausea, or vomiting. HOME MEDICATIONS: Reviewed. 1. Omeprazole 40 mg daily. 2. Atenolol 25 daily. 3. Multivitamin daily. 4. DuoNeb q.i.d. 5. Ecotrin 81 daily. 6. Tylenol 650 b.i.d. PAST MEDICAL HISTORY: Cancer, heart failure, COPD, dementia, GERD, hypothyroidism. PAST SURGICAL HISTORY: Mastectomy, right ankle fracture, bilateral cataract removal, breast surgery, orthopedic surgery. FAMILY HISTORY: Father, heart disease. Mother, heart disease. Sister, breast cancer. PHYSICAL EXAMINATION: VITAL SIGNS: Reviewed. GENERAL: She is obtunded, nontoxic, well hydrated. CARDIOVASCULAR: S1, S2. LUNGS: Decreased breath sounds x4. ABDOMEN: Soft, nontender. SKIN: Some mild macerations in the scaffold. NEUROLOGIC: Cranial nerves appear to be intact. Symmetric smile. Normal speech. Range of motion is fair. LABORATORY DATA: EKG, sinus rhythm. White count 10, hemoglobin 13.1, BUN 24, creatinine is 1.84. ASSESSMENT AND PLAN: Altered mental status, hyperglycemia, diabetic ketoacidosis, hypercapnic respiratory failure, possible encephalopathy versus urosepsis. Prognosis is guarded. Rehydrate. Please see further orders. MMODL / IJN: [id number] /
[2022-03-31] MEDS: SODIUM CHLORIDE 0.9% 1,000 ML IV SCH (01:02)
[2022-03-31] MEDS: LEVOTHYROXINE 50 MCG TAB PO SCH (06:07)
[2022-03-31] MEDS: PANTOPRAZOLE 40 MG TABLET PO SCH (06:08)
--- NOTE | 2022-03-31 09:05 | CT ---
EXAMINATION TYPE: CT chest wo con CT DLP: 226.6 mGycm, Automated exposure control for dose reduction was used. DATE OF EXAM: 03/31/2022 8:27 AM COMPARISON: 04/01/2017 CT chest, CT urogram 05/21/2021 chest radiograph 03/29/2022 CLINICAL INDICATION:Female, 86 years old with history of nodule; lung nodule TECHNIQUE: Multiple axial images were obtained through the chest. Sagittal and coronal reformats were created for review. Contrast used: none Oral contrast used: none. FINDINGS: LUNGS/ PLEURA: Left lower lung nodule with calcification is stable back to at least 2015. No suspicio us nodules identified. No focal consolidation, pneumothorax or pleural effusion. Scattered peripheral reticulation and probable scarring noted in the lung bases. AIRWAY: Patent and unremarkable. HEART: The heart is enlarged for size there is coronary artery atherosclerosis MEDIASTINUM: No gross evidence of adenopathy. Partially calcified lymph nodes are seen on the left pu lmonary hilum. Large amount of ingested contents are seen within the esophagus. Circumferential wall thickening of the distal esophagus measuring up to 7 mm. VASCULATURE: No aortic aneurysm. Arthrosclerosis of the arterial vasculature. MUSCULOSKELETAL: No acute osseous abnormalities SOFT TISSUES/LYMPH NODES: Unremarkable. LOWER NECK: No significant findings. UPPER ABDOMEN: Scattered calcified splenic granulomas. IMPRESSION: 1. Stable left lower lung nodule dating back to at least 2016 which is partially calcified this exam ination and partially calcified lymph nodes is most consistent with chronic granulomatous disease. 2. Layering debris within the esophagus correlate for reflux/esophageal dysmotility. 3. Circumferential distal esophageal wall thickening correlate for esophagitis.
[2022-03-31] MEDS: IPRATROPIUM-ALBUTEROL 3 ML NEB INHALATION SCH ×2 (09:10→19:08)
[2022-03-31] MEDS: ASPIRIN 81 MG PO SCH (09:27)
[2022-03-31] MEDS: MULTIVITAMINS, THERA 1 EACH TAB PO SCH (09:27)
[2022-03-31] MEDS: atenoloL 25 MG TAB PO SCH (09:27)
[2022-03-31] MEDS: FERROUS SULFATE 325 MG TAB PO SCH (09:27)
[2022-03-31] MEDS: SENNOSIDES-DOCUSATE SODIUM 1 EACH TAB PO SCH (09:27)
[2022-03-31 11:21] LABS: HCT 32.1 % (37.2-46.3); HGB 10.1 g/dL (12.0-15.0); MCH 29.4 pg (27.0-32.0); MCHC 31.5 g/dL (32.0-37.0); MCV 93.6 fL (80.0-97.0); Mean Platelet Volume 9.6 fL (9.5-12.2); NRBC Per 100 WBC 0 /100 WBCS (0.0-0.0); Platelet Count 261 X 10*3/uL (140-440); RBC 3.43 X 10*6/uL (4.10-5.20); RDW 15.6 % (11.5-14.5); WBC 9.67 X 10*3/uL (4.50-10.00)
[2022-03-31 11:24] LABS: ALT 12 U/L (8-44); AST 16 U/L (13-35); African American GFR (CKD) 72.8 (60.0-200.0); Albumin 3.1 g/dL (3.8-4.9); Albumin/Globulin Ratio 1.09 (1.60-3.17); Alkaline Phosphatase 65 U/L (41-126); BUN/Creat Ratio 13.94 Ratio (12.00-20.00); Blood Urea Nitrogen 11.6 mg/dL (9.0-27.0); Calcium 8.6 mg/dL (8.7-10.3); Carbon Dioxide 21.2 mmol/L (20.0-27.5); Chloride 111 mmol/L (96-109); Globulin 2.8 g/dL (1.6-3.3); Glucose 108 mg/dL (70-110); Non-African American GFR(CKD) 62.8 (60.0-200.0); Potassium 4.1 mmol/L (3.5-5.5); Sodium 142 mmol/L (135-145); Total Bilirubin <0.15 mg/dL (0.30-1.20); Total Protein 5.9 g/dL (6.2-8.2)
[2022-03-31 12:24] LABS: Basophils # (M) 0.19 X 10*3/uL (0.00-0.10); Eosinophils # (M) 0.39 X 10*3/uL (0.04-0.35); Lymphocytes # (M) 1.35 X 10*3/uL (0.90-5.00); Metamyelocytes % 1 % (0-0); Monocytes # (M) 0.68 X 10*3/uL (0.20-1.00); Myelocytes % 4 % (0-0); Neutrophils # (M) 6.38 X 10*3/uL (2.00-8.90); Neutrophils % (M) 66 %; Promyelocytes # (M) 0.19 k/uL (0); Promyelocytes % 2 % (0-0)
[2022-03-31 13:54] VITALS: BMI 19.5
--- NOTE | 2022-03-31 15:21 | P.CONS ---
History of Present Illness - Reason for Consult Consult date: 03/31/22 Urosepsis Requesting physician: Victor Hugo Zhong - Chief Complaint Weakness x few days - History of Present Illness Patient is 80-year-old female with a past medical history significant for COPD heart failure and dementia hypothyroidism breast cancer, the patient wa s brought into the hospital with the family concerning with the family concerning for weakness mental status changes and decreased oral intake along with decreased urine output of any fever or any chills no vomiting or any diarrhea patient on presentation to the hospital was afebrile and no fever has been recorded LAST 2 days the patient has been healing the patient is currently breathing comfortably on room air, patient did have a normal white count patient did have a positive UA with concern for UTI he was started on Rocephin and infectious disease was consulted for further management of antibiotic therapy. On today's evaluation that is 03/31/2020 to the patient denies having any fever or any chills patient mentioned she is feeling slightly better denies any chest pain shortness of breath or cough no abdominal pain or diarrhea. 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 Past Anesthesia/Blood Transfusion Reactions: No Reported Reaction Past Psychological History: No Psychological Hx Reported Smoking Status: Unknown if ever smoked Past Alcohol Use History: None Reported Past Drug Use History: None Reported - Past Family History Father Additional Family Medical History / Comment(s): heart disease. Mother Additional Family Medical History / Comment(s): heart disease. Sister(s) Family Medical History: Cancer Additional Family Medical History / Comment(s): 3 SISTERS WITH BREAST CA Medications and Allergies Home Medications Medication Instructions Recorded Confirmed Type Levothyroxine Sodium [Synthroid] 50 mcg PO DAILY@0800 04/01/17 03/29/22 History Multivitamins, Thera [Multivitamin 1 tab PO DAILY@79911/02/19 03/29/22 History (formulary)] Omeprazole 40 mg PO DAILY@79911/02/19 03/29/22 History atenoloL 25 mg PO DAILY@79911/02/19 03/29/22 History Albuterol Inhaler [Ventolin Hfa 2 puff INHALATION RT-Q4H PRN puff 07/08/20 03/29/22 Rx Inhaler] Ipratropium-Albuterol Nebulize 3 ml INHALATION RT-BID@799,199901/06/21 03/29/22 History [Duoneb 0.5 mg-3 mg/3 ml Soln] Sennosides-Docusate Sodium 1 tab PO DAILY@79901/06/21 03/29/22 History [Senokot-S] Aspirin EC [Ecotrin Low Dose] 81 mg PO DAILY@79903/07/21 03/29/22 History Acetaminophen [Tylenol] 325 mg PO DAILY PRN 05/26/21 03/29/22 History Clotrimazole/Betameth Cream 1 applic TOPICAL BID@799,199903/29/22 03/29/22 History [Lotrisone] Ferrous Sulfate [Iron (65 MG 325 mg PO DAILY@79903/29/22 03/29/22 History Elemental)] Loperamide [Imodium] 2 - 4 mg PO DIRECTED PRN MDD 8mg 03/29/22 03/29/22 History Nystatin 100,000Unit/gm Cream 1 applic TOPICAL BID@799,199903/29/22 03/29/22 History [Mycostatin Cream] Levofloxacin [Levaquin] 250 mg PO DAILY 5 Days #5 tab 04/01/22 Rx Allergies Allergy/AdvReac Type Severity Reaction Status Date / Time cefuroxime Allergy Intermediate Hives Verified 03/29/22 18:58 Physical Exam Vitals: Vital Signs Temp Pulse Pulse Resp BP Pulse Ox 03/31/22 09:11 80 03/31/22 08:59 80 03/31/22 07:08 98.5 F 90 15 116/63 98 03/31/22 02:00 98.9 F 86 16 100/62 98 03/30/22 19:46 82 03/30/22 19:41 97.6 F 74 18 104/62 98 03/30/22 19:37 86 03/30/22 14:00 97.7 F 59 L 17 118/82 94 L 03/30/22 12:23 84 03/30/22 12:13 80 Intake and Output 03/30/22 03/31/22 03/31/22 22:59 06:59 14:59 Intake Total 600 Output Total 750 1300 Balance -750 -700 Intake: Intake, IV Titration 600 Amount Sodium Chloride 0.9% 1, 600 000 ml @ 50 mls/hr IV . Q20H [facility] Rx#:[id number] Output: Urine 750 1300 Other: Voiding Method Indwelling Catheter Indwelling Catheter GENERAL DESCRIPTION: Elderly female lying in bed, no distress. No tachypnea or accessory muscle of respiration use. HEENT: Shows Pallor , no scleral icterus. Oral mucous membrane is dry. No pharyngeal erythema or thrush NECK: Trachea central, no thyromegaly. LUNGS: Unlabored breathing. Clear to auscultation anteriorly. No wheeze or crackle. HEART: S1, S2, regular rate and rhythm. No loud murmur ABDOMEN: Soft, no tenderness , guarding or rigidity, no organomegaly EXTREMITIES: No edema of feet. SKIN: No rash, no masses palpable. NEUROLOGICAL: The patient is awake, alert, oriented x2, mood and affect normal. Results CBC & Chem 7: 04/01/22 06:55 04/01/22 06:55 Labs: Abnormal Lab Results - Last 24 Hours (Table) 03/31/22 03/31/22 Range/Units 06:04 06:04 RBC 3.43 L (4.10-5.20) X 10*6/uL Hgb 10.1 L (12.0-15.0) g/dL Hct 32.1 L (37.2-46.3) % MCHC 31.5 L (32.0-37.0) g/dL RDW 15.6 H (11.5-14.5) % Chloride 111 H (96-109) mmol/L Anion Gap 9.90 L (10.00-18.00) mmol/L Calcium 8.6 L (8.7-10.3) mg/dL Total Bilirubin <0.15 L (0.30-1.20) mg/dL Total Protein 5.9 L (6.2-8.2) g/dL Albumin 3.1 L (3.8-4.9) g/dL Albumin/Globulin Ratio 1.09 L (1.60-3.17) g/dL Microbiology - Last 24 Hours (Table) 03/29/22 16:02 Urine Culture - Final Urine,Clean Catch Assessment and Plan (1) UTI (urinary tract infection) Status: Acute Code(s): N39.0 - URINARY TRACT INFECTION, SITE NOT SPECIFIED SNOMED Code(s): 90746208 Plan: 1patient presented to hospital with weakness decreased oral intake which is likely multifactorial possible dehydration patient did have significant positive UA and component of symptomatic urinary tract infection from enteric gram- negative pathogen not entirely excluded. 2patient do have cefuroxime ALLERGY on chart however however the patient is not able to tell me the type of reaction, limiting the number of antibiotics safe to use 3we will repeat a UA and culture straight cath for clean-catch sample. 4patient to continue with the Levaquin while waiting for the cultures to finalize along with gentle IV fluid. We will follow on clinical condition and cultures to further adjust medication if needed Thank you for this consultation will follow this patient with youement Time with Patient: Greater than 30
--- NOTE | 2022-03-31 20:08 | PN ---
PROGRESS NOTE SUBJECTIVE: This 86-year-old white female came with UTI, urosepsis, dehydration, prerenal azotemia, history of mild dementia. She is eating and drinking okay. She is feeling better. She has been rehydrated. Her hemoglobin is down to 10 from 12, probably from fluid rehydration. Urine culture came back skin contaminant, had been treating with Levaquin and possibly send her home tomorrow. She is improving mental status normal. OBJECTIVE: VITAL SIGNS: Reviewed. CARDIOVASCULAR: S1, S2. LUNGS: Clear. GI: Soft. HEMATOLOGY: Negative for Homans. PSYCH: Fair mood and affect. PLAN: Continue current treatment and follow up next 24 to 48 hours for possible discharge. MMODL / IJN: [id number] /
[2022-04-01] MEDS: SODIUM CHLORIDE 0.9% 1,000 ML IV SCH ×2 (06:09→13:38)
[2022-04-01] MEDS: LEVOTHYROXINE 50 MCG TAB PO SCH (06:10)
[2022-04-01] MEDS: PANTOPRAZOLE 40 MG TABLET PO SCH (06:10)
[2022-04-01 07:23] LABS: Basophils # (A) 0.1 k/uL (0-0.2); Basophils % (A) 2 %; Eosinophils # (A) 0.5 k/uL (0-0.7); Eosinophils % (A) 6 %; HCT 31.6 % (34.0-46.0); HGB 10.5 gm/dL (11.4-16.0); Hypochromasia Slight; Lymphocytes # (A) 1.8 k/uL (1.0-4.8); Lymphocytes % (A) 22 %; MCH 30.6 pg (25.0-35.0); MCHC 33.3 g/dL (31.0-37.0); Mean Platelet Volume 7.7; Monocytes # (A) 0.6 k/uL (0-1.0); Monocytes % (A) 8 %; Neutrophils # (A) 4.8 k/uL (1.3-7.7); Neutrophils % (A) 60 %; Platelet Count 273 k/uL (150-450); RBC 3.43 m/uL (3.80-5.40); RDW 14.6 % (11.5-15.5)
[2022-04-01 07:40] LABS: ALT 13 U/L (4-34); AST 16 U/L (14-36); African American GFR (CKD) >90 (>60 ml/min/1.73 sqM); Albumin 2.7 g/dL (3.5-5.0); Albumin/Globulin Ratio 0.9; Alkaline Phosphatase 58 U/L (38-126); Anion Gap 4 mmol/L; Blood Urea Nitrogen 13 mg/dL (7-17); Carbon Dioxide 23 mmol/L (22-30); Chloride 112 mmol/L (98-107); Globulin 3.1 g/dL; Glucose 106 mg/dL (74-99); Non-African American GFR(CKD) 79 (>60 ml/min/1.73 sqM); Potassium 3.8 mmol/L (3.5-5.1); Sodium 139 mmol/L (137-145); Total Bilirubin 0.2 mg/dL (0.2-1.3); Total Protein 5.8 g/dL (6.3-8.2)
[2022-04-01] MEDS: IPRATROPIUM-ALBUTEROL 3 ML NEB INHALATION SCH (07:56)
[2022-04-01] MEDS: MULTIVITAMINS, THERA 1 EACH TAB PO SCH (08:11)
[2022-04-01] MEDS: FERROUS SULFATE 325 MG TAB PO SCH (08:11)
[2022-04-01] MEDS: ASPIRIN 81 MG PO SCH (08:11)
[2022-04-01] MEDS: atenoloL 25 MG TAB PO SCH (08:12)
[2022-04-01] MEDS: SENNOSIDES-DOCUSATE SODIUM 1 EACH TAB PO SCH (08:12)
--- NOTE | 2022-04-01 12:56 | P.PN ---
Subjective Progress Note Date: 04/01/22 Principal diagnosis: Urinary tract infection Patient is 80-year-old female with a past medical history significant for COPD heart failure and dementia hypothyroidism breast cancer, the patient was brought into the hospital with the family concerning with the family con parviz for weakness mental status changes and decreased oral intake, patient diagnosed with the dehydration significantly positive UA concerning for symptomatic UTI. On today's evaluation that is a 04/01/2022, the patient denies having any fever or any chills, the patient is breathing comfortably on room air no chest pain shortness of breath or cough no abdominal pain or diarrhea Objective - Vital Signs Vital signs: Vital Signs Temp 98.5 F 04/01/22 08:00 Pulse 82 04/01/22 11:27 Resp 16 04/01/22 11:27 BP 133/61 04/01/22 08:00 Pulse Ox 97 04/01/22 08:00 FiO2 Intake & Output 03/31/22 04/01/22 04/01/22 18:59 06:59 18:59 Output Total 400 700 Balance -400 -700 Weight 49.895 kg Output: Urine 400 700 Uretheral (Kurtz) 400 Other: Voiding Method Indwelling Catheter Indwelling Catheter Indwelling Catheter # Bowel Movements 1 - Exam GENERAL DESCRIPTION: An elderly female lying in bed in no distress RESPIRATORY SYSTEM: Unlabored breathing , decreased breath sounds at bases HEART: S1 S2 regular rate and rhythm , ABDOMEN: Soft , no tenderness EXTREMITIES: No edema feet - Labs CBC & Chem 7: 04/01/22 06:55 04/01/22 06:55 Labs: Abnormal Lab Results - Last 24 Hours (Table) 04/01/22 04/01/22 Range/Units 06:55 06:55 RBC 3.43 L (3.80-5.40) m/uL Hgb 10.5 L (11.4-16.0) gm/dL Hct 31.6 L (34.0-46.0) % Chloride 112 H (98-107) mmol/L Glucose 106 H (74-99) mg/dL Calcium 8.0 L (8.4-10.2) mg/dL Total Protein 5.8 L (6.3-8.2) g/dL Albumin 2.7 L (3.5-5.0) g/dL Assessment and Plan (1) UTI (urinary tract infection) Current Visit: Yes Status: Acute Code(s): N39.0 - URINARY TRACT INFECTION, SITE NOT SPECIFIED SNOMED Code(s): 38653045 Plan: 1patient presented to hospital with weakness decreased oral intake which is likely multifactorial possible dehydration patient did have significant positive UA and component of symptomatic urinary tract infection from enteric gram- negative pathogen not entirely excluded. 2patient do have cefuroxime ALLERGY on chart however however the patient is not able to tell me the type of reaction, limiting the number of antibiotics 50 use 3we did ask for repeat a UA and culture straight cath for clean-catch sample on 03/31/2022 however it hasn't been collected discussed with the RN to collect the sample today 4patient to continue with the Levaquin while waiting for the repeat UA to be completed along with gentle hydration Time with Patient: Less than 30
[2022-04-01 14:10] VITALS: BP 95/56; PULSE 99; RESP 17; TEMP 98.1
[2022-04-01] MEDS ORDERED: LEVOFLOXACIN 250 MG TAB PO SCH (17:00)
[2022-04-01] MEDS ORDERED: LEVOFLOXACIN 750MG-D5W PMX 750 MG in DEXTROSE/WATER 1 150ML.BAG IVPB SCH (18:00)
== END 2022-04-01 18:44 | disposition home or self-care (01) | DRG 690 ==
LOC: EC 13:28 → 4SSUR 18:34
PROVIDERS: ADMIT Family Medicine; ATTEND Family Medicine
DX: N39.0 Urinary tract infection, site not specified (principal); I50.9 Heart failure, unspecified; E03.9 Hypothyroidism, unspecified; J44.9 Chronic obstructive pulmonary disease, unspecified; Z28.310 Unvaccinated for COVID-19; E86.0 Dehydration; F03.A0 Unspecified dementia, mild, without behavioral disturbance, psychotic disturbance, mood disturbance, and anxiety; K21.9 Gastro-esophageal reflux disease without esophagitis; K44.9 Diaphragmatic hernia without obstruction or gangrene; Q71.31 Congenital absence of right hand and finger; Z79.82 Long term (current) use of aspirin; Z79.890 Hormone replacement therapy; Z79.899 Other long term (current) drug therapy; Z85.3 Personal history of malignant neoplasm of breast; Z88.1 Allergy status to other antibiotic agents
CPT/HCPCS: 36415; 51798; 71046; 71250; 80053; 80306; 81001; 83605; 83735; 84484; 85025; 85610; 85730; 87086; 93005; 94640; 94760; 96361; 96365; 99285

== ENCOUNTER 2022-04-10 10:06 | Inpatient (IN) | payer MEDICARE ==
[2022-04-10] MEDS ORDERED: SODIUM CHLORIDE 0.9% 1,000 ML IV STA (12:12)
--- NOTE | 2022-04-10 12:13 | ED ---
General Adult HPI - General Chief complaint: Weakness Stated complaint: dehydration Time Seen by Provider: 04/10/22 11:52 Source: patient, family Mode of arrival: wheelchair Limitations: no limitations - History of Present Illness Initial comments: Dictation was produced using Mev[employer] dictation software. please excuse any grammatical, word or spelling errors. Chief Complaint: 87-year-old female recently discharged for admission for UTI and dehydration presents here for altered mental status History of Present Illness: Patient is a 87-year-old female she has multiple comorbidities. Patient has dementia listed in her medical history of her daughter at the bedside reports that patient has no history of dementia. Patient was last seen normal around 6 PM last night. This morning she woke up and was told by adult foster care that she had not had any wet diapers since yesterday. Furthermore she has been altered and less interactive. Daughter at the bedside reports that patient is normally interactive has meaningful convers ations normally. Patient does not ambulate. She is bedbound secondary to progression of chronic debility following hip fracture and COVID-19. Patient unable to provide us present illness at this time. The ROS documented in this emergency department record has been reviewed and confirmed by me. Those systems with pertinent positive or negative responses have been documented in the HPI. All other systems are other negative and/or noncontributory. PHYSICAL EXAM: General Impression: Alert and oriented x0/4, not in acute distress, patient will wiggle her feet when asked to move her legs HEENT: Normocephalic atraumatic, extra-ocular movements intact, pupils equal and reactive to light bilaterally, mucous membranes moist. Cardiovascular: Heart regular rate and rhythm Chest: Able to complete full sentences, no retractions, no tachypnea Abdomen: abdomen soft, non-tender, non-distended, no organomegaly Musculoskeletal: Pulses present and equal in all extremities, no peripheral edema Motor: no focal deficits noted Neurological: CN II-XII grossly intact, aphasic, neglect Skin: Intact with no visualized rashes Psych: Normal affect and mood ED course: 87-year-old female presents emergency department for altered mental status. Last normal was 6 PM last night. Daughter reports the patient's baseline is usually interactive with meaningful conversation. At the bedside patient is aphasic and uncooperative. She does not follow commands. Nursing notes and chart review was performed Laboratory evaluation obtained. CBC, coag panel, metabolic panel is unremarkable. Labs are negative otherwise. Perhaps maybe a slight elevated BNP creatinine ratio suggesting mild dehydration. CT brain is unremarkable. CT angiography of the head and neck shows no acute intracranial stenoses. Mild stenosis at the bilateral internal carotids. Patient reevaluated at bedside still altered. Is unclear what is causing patient's symptoms. CVA still possible. Perhaps maybe patient is suffering mentation issues from Levaquin usage. Patient aspirin. She is not a candidate for TPA or thrombectomy after having had discussion with stroke neurologist. Patient made with consultation to neurology. Was pt. sent in by a medical professional or institution (, PA, MANAGER INCOME [employer], urgent care, hospital, or residential...) When possible be specific @ -Adult foster care Did you speak to anyone other than the patient for history (EMS, parent, family, police, friend...)? What history was obtained from this source @ -Daughter Did you review nursing and triage notes (agree or disagree)? Why? @ -[I reviewed and agree with nursing and triage notes] Were old charts reviewed (outside hosp., previous admission, EMS record, old EKG, old radiological studies, urgent care reports/EKG's, residential records)? Report findings @ -[No old charts were reviewed] Differential Diagnosis (chest pain, altered mental status, abdominal pain women, abdominal pain men, vaginal bleeding, weakness, fever, dyspnea, syncope, heada doretha, dizziness, GI bleed, back pain, seizure, CVA, palpatations, mental health)? @ -Differential Altered Mental Status: Hypoglycemia, DKA, hypercapnia, ETOH, overdose, CO poisoning, trauma, myxedema coma, HTN encephalopathy, infection, encephalitis, psychosis, intercranial hemor rhage, hepatic encephalopathy, meningitis, CVA, this is not meant to be an all- inclusive list EKG interpreted by me (3pts min.). @ -[As above] X-rays interpreted by me (1pt min.). @ -See above CT interpreted by me (1pt min.). @ -see above U/S interpreted by me (1pt. min.). @ -[None done] What testing was considered but not performed or refused? (CT, X-rays, U/S, labs)? Why? @ -[None] What meds were considered but not given or refused? Why? @ -TPA was considered however patient had a candidate due to last known well greater than 4-6 hours. Did you discuss the management of the patient with other professionals (professionals i.e. , PA, MANAGER [employer], lab, RT, psych nurse, psychotherapist social worker, client technologies specialist, teacher, zoology technical officer, case preparer and liner)? Give summary @ -Dr. Eastman, stroke neurologist and Dr. Zhong Was smoking cessation discussed for >3mins.? @ -[No] Was critical care preformed (if so, how long)? @ -Yes, 33 minutes Were there social determinants of health that impacted care today? How? (Homelessness, low income, unemployed, alcoholism, drug addiction, transportation, low edu. Level, literacy, decrease access to med. care, fci, rehab)? @ -Lives at adult foster care Was there de-escalation of care discussed even if they declined (Discuss DNR or withdrawal of care, Hospice)? DNR status @ -[No] What co-morbidities impacted this encounter? (DM, HTN, Smoking, COPD, CAD, Cancer, CVA, ARF, Chemo, Hep., AIDS, mental health diagnosis, sleep apnea, morbid obesity)? @ -[None] Was patient admitted / discharged? Hospital course, mention meds given and route, prescriptions, significant lab abnormalities, going to OR and other pertinent info. @ -[See above] Undiagnosed new problem with uncertain prognosis? @ -Acute altered mental status, no obvious source Drug Therapy requiring intensive monitoring for toxicity (Heparin, Nitro, Insulin, Cardizem)? @ -[No] Were any procedures done? @ -[No] Diagnosis/symptom? @ -Acute altered mental status, no obvious source Acute, or Chronic, or Acute on Chronic? @ -Acute Uncomplicated (without systemic symptoms) or Complicated (systemic symptoms)? @ -[default] Side effects of treatment? @ -[No] Exacerbation, Progression, or Severe Exacerbation? @ -[No] Poses a threat to life or bodily function? How? (Chest pain, [place], SC, pneumonia, PE, COPD, DKA, ARF, appy, cholecystitis, CVA, Diverticulitis, Homicidal, Suicidal, threat to staff... and all critical care pts) @ -Yes - Related Data Home Medications Medication Instructions Recorded Confirmed Levothyroxine Sodium [Synthroid] 50 mcg PO DAILY@79904/01/17 04/10/22 Multivitamins, Thera [Multivitamin 1 tab PO DAILY@79911/02/19 04/10/22 (formulary)] Omeprazole 40 mg PO DAILY@79911/02/19 04/10/22 atenoloL 25 mg PO DAILY@79911/02/19 04/10/22 Ipratropium-Albuterol Nebulize 3 ml INHALATION RT-BID@799,199901/06/21 04/10/22 [Duoneb 0.5 mg-3 mg/3 ml Soln] Sennosides-Docusate Sodium 1 tab PO DAILY@79901/06/21 04/10/22 [Senokot-S] Aspirin EC [Ecotrin Low Dose] 81 mg PO DAILY@79903/07/21 04/10/22 Acetaminophen [Tylenol] 325 mg PO DAILY PRN 05/26/21 04/10/22 Clotrimazole/Betameth Cream 1 applic TOPICAL BID@08,199903/29/22 04/10/22 [Lotrisone] Ferrous Sulfate [Iron (65 MG 325 mg PO DAILY@79903/29/22 04/10/22 Elemental)] Loperamide [Imodium] 2 - 4 mg PO QID PRN MDD 8mg 03/29/22 04/10/22 Nystatin 100,000Unit/gm Cream 1 applic TOPICAL BID@799,199903/29/22 04/10/22 [Mycostatin Cream] Previous Rx's Medication Instructions Recorded Albuterol Inhaler [Ventolin Hfa 2 puff INHALATION RT-Q4H PRN puff 07/08/20 Inhaler] Allergies Allergy/AdvReac Type Severity Reaction Status Date / Time cefuroxime Allergy Intermediate Hives Verified 04/10/22 12:40 Review of Systems ROS Statement: Those systems with pertinent positive or pertinent negative responses have been documented in the HPI. ROS Other: All systems not noted in ROS Statement are negative. 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 Past Anesthesia/Blood Transfusion Reactions: No Reported Reaction Past Psychological History: No Psychological Hx Reported Smoking Status: Unknown if ever smoked Past Alcohol Use History: None Reported Past Drug Use History: None Reported - Past Family History Father Additional Family Medical History / Comment(s): heart disease. Mother Additional Family Medical History / Comment(s): heart disease. Sister(s) Family Medical History: Cancer Additional Family Medical History / Comment(s): 3 SISTERS WITH BREAST CA General Exam Limitations: no limitations Course Vital Signs 04/10/22 04/10/22 04/10/22 10:09 11:30 12:00 Temperature 98 F Pulse Rate 86 92 75 Respiratory 18 14 20 Rate Blood Pressure 107/71 128/71 114/71 O2 Sat by Pulse 98 98 98 Oximetry 04/10/22 04/10/22 04/10/22 12:15 12:30 12:45 Temperature Pulse Rate 81 83 87 Respiratory 18 18 16 Rate Blood Pressure 124/78 124/78 131/82 O2 Sat by Pulse 97 97 98 Oximetry 04/10/22 04/10/22 04/10/22 13:15 13:30 13:45 Temperature Pulse Rate 80 83 86 Respiratory 15 14 20 Rate Blood Pressure 128/73 123/77 130/74 O2 Sat by Pulse 97 97 96 Oximetry Medical Decision Making - Lab Data Result diagrams: 04/10/22 12:14 04/10/22 12:14 Lab Results 04/10/22 04/10/22 04/10/22 Range/Units 12:12 12:14 12:14 WBC 9.3 (3.8-10.6) k/uL RBC 3.97 (3.80-5.40) m/uL Hgb 12.1 (11.4-16.0) gm/dL Hct 36.2 (34.0-46.0) % MCV 91.2 (80.0-100.0) fL MCH 30.6 (25.0-35.0) pg MCHC 33.5 (31.0-37.0) g/dL RDW 14.6 (11.5-15.5) % Plt Count 340 (150-450) k/uL MPV 7.5 Neutrophils % 68 % Lymphocytes % 18 % Monocytes % 6 % Eosinophils % 4 % Basophils % 1 % Neutrophils # 6.4 (1.3-7.7) k/uL Lymphocytes # 1.7 (1.0-4.8) k/uL Monocytes # 0.5 (0-1.0) k/uL Eosinophils # 0.4 (0-0.7) k/uL Basophils # 0.1 (0-0.2) k/uL PT 9.8 (9.0-12.0) sec INR 0.9 (<1.2) APTT 22.1 (22.0-30.0) sec Sodium (137-145) mmol/L Potassium (3.5-5.1) mmol/L Chloride (98-107) mmol/L Carbon Dioxide (22-30) mmol/L Anion Gap mmol/L BUN (7-17) mg/dL Creatinine (0.52-1.04) mg/dL Est GFR (CKD-EPI)AfAm (>60 ml/min/1.73 sqM) Est GFR (CKD-EPI)NonAf (>60 ml/min/1.73 sqM) Glucose (74-99) mg/dL POC Glucose (mg/dL) 101 (70-110) mg/dL POC Glu Automobile Mechanic Supervisor ID Subha Edwards Calcium (8.4-10.2) mg/dL Total Bilirubin (0.2-1.3) mg/dL AST (14-36) U/L ALT (4-34) U/L Alkaline Phosphatase (38-126) U/L Troponin I (0.000-0.034) ng/mL Total Protein (6.3-8.2) g/dL Albumin (3.5-5.0) g/dL 04/10/22 04/10/22 Range/Units 12:14 12:14 WBC (3.8-10.6) k/uL RBC (3.80-5.40) m/uL Hgb (11.4-16.0) gm/dL Hct (34.0-46.0) % MCV (80.0-100.0) fL MCH (25.0-35.0) pg MCHC (31.0-37.0) g/dL RDW (11.5-15.5) % Plt Count (150-450) k/uL MPV Neutrophils % % Lymphocytes % % Monocytes % % Eosinophils % % Basophils % % Neutrophils # (1.3-7.7) k/uL Lymphocytes # (1.0-4.8) k/uL Monocytes # (0-1.0) k/uL Eosinophils # (0-0.7) k/uL Basophils # (0-0.2) k/uL PT (9.0-12.0) sec INR (<1.2) APTT (22.0-30.0) sec Sodium 139 (137-145) mmol/L Potassium 4.3 (3.5-5.1) mmol/L Chloride 107 (98-107) mmol/L Carbon Dioxide 26 (22-30) mmol/L Anion Gap 6 mmol/L BUN 21 H (7-17) mg/dL Creatinine 0.70 (0.52-1.04) mg/dL Est GFR (CKD-EPI)AfAm 89 (>60 ml/min/1.73 sqM) Est GFR (CKD-EPI)NonAf 77 (>60 ml/min/1.73 sqM) Glucose 105 H (74-99) mg/dL POC Glucose (mg/dL) (70-110) mg/dL POC Glu Automobile Mechanic Supervisor ID Calcium 8.6 (8.4-10.2) mg/dL Total Bilirubin 0.5 (0.2-1.3) mg/dL AST 23 (14-36) U/L ALT 17 (4-34) U/L Alkaline Phosphatase 69 (38-126) U/L Troponin I <0.012 (0.000-0.034) ng/mL Total Protein 7.0 (6.3-8.2) g/dL Albumin 3.4 L (3.5-5.0) g/dL Disposition Clinical Impression: Altered mental status Disposition: ADMITTED IP TO THIS HOSP Condition: Serious Referrals: Victor Hugo Zhong MD [Primary Care Provider] - 1-2 days Decision Time: 14:12
[2022-04-10 12:14] LABS: Glucose,Whole Blood 101 mg/dL (70-110)
[2022-04-10 12:21] LABS: Basophils # (A) 0.1 k/uL (0-0.2); Basophils % (A) 1 %; Eosinophils # (A) 0.4 k/uL (0-0.7); Eosinophils % (A) 4 %; HCT 36.2 % (34.0-46.0); HGB 12.1 gm/dL (11.4-16.0); Lymphocytes # (A) 1.7 k/uL (1.0-4.8); Lymphocytes % (A) 18 %; MCH 30.6 pg (25.0-35.0); MCHC 33.5 g/dL (31.0-37.0); MCV 91.2 fL (80.0-100.0); Mean Platelet Volume 7.5; Monocytes # (A) 0.5 k/uL (0-1.0); Monocytes % (A) 6 %; Neutrophils # (A) 6.4 k/uL (1.3-7.7); Neutrophils % (A) 68 %; Platelet Count 340 k/uL (150-450); RBC 3.97 m/uL (3.80-5.40); RDW 14.6 % (11.5-15.5); WBC 9.3 k/uL (3.8-10.6)
[2022-04-10 12:31] LABS: INR 0.9 (<1.2); Partial Thromboplastin Time 22.1 sec (22.0-30.0); Prothrombin Time 9.8 sec (9.0-12.0)
[2022-04-10 12:32] LABS: Albumin 3.4 g/dL (3.5-5.0); Calcium 8.6 mg/dL (8.4-10.2); Potassium 4.3 mmol/L (3.5-5.1); Total Bilirubin 0.5 mg/dL (0.2-1.3)
--- NOTE | 2022-04-10 12:38 | CT ---
EXAMINATION TYPE: CT brain wo con for TPA CT DLP: 1126 mGycm, Automated exposure control for dose reduction was used. DATE OF EXAM: 04/10/2022 12:31 PM COMPARISON: Prior CT Brain from 03/07/2021. CLINICAL INDICATION:Female, 87 years old with history of Neuro deficit, acute, stroke suspected, r/o stroke TECHNIQUE: Brain: Multiple axial CT images of the brain were obtained without IV contrast. Coronal and sagittal reformats reviewed. FINDINGS: Brain: Extra-axial spaces: No abnormal extra-axial fluid collections. Ventricular system: Dilatation in proportion to cerebral atrophy. Cerebral parenchyma: Cerebral atrophy. No acute intraparenchymal hemorrhage or mass effect. The aguilar -white junction is well differentiated. Scattered hypoattenuating areas are seen within the white mat ter. Cerebellum: Unremarkable. Mass effect: No evidence of midline shift. Intracranial vasculature: Atherosclerotic calcifications of the intracranial vessels. Soft tissues: Normal. Calvarium/osseous structures: No depressed skull fracture. Paranasal sinuses and mastoid air cells: Clear Visualized orbits: Bilateral aphakia IMPRESSION: 1. No acute intracranial process. 2. Nonspecific white matter changes, likely secondary to chronic small vessel ischemic disease.
--- NOTE | 2022-04-10 13:00 | CT ---
EXAMINATION TYPE: CT angio head neck CT DLP: 327.1 mGycm, Automated exposure control for dose reduction was used. DATE OF EXAM: 04/10/2022 12:48 PM COMPARISON: CT brain 04/10/2022. CLINICAL INDICATION:Female, 87 years old with history of Neuro deficit, acute, stroke suspected; [facility], r/o stroke TECHNIQUE: Axially acquired helical CT angiogram of the head and neck was obtained with contrast util izing 75 cc of Isovue-370 administered intravenously. Axial images are supplemented with 3D reconstru ctions which were post-processed at an independent workstation. NASCET criteria used. FINDINGS: CTA HEAD: No evidence of acute intracranial hemorrhage, mass effect, or midline shift. The ventricles, sulci, a nd cisterns are prominent consistent with cerebral atrophy. The visualized portions of the internal carotid arteries, middle cerebral arteries, anterior cerebral arteries, and posterior cerebral arteries are patent. The anterior communicating artery appears hypo plastic. Both posterior clinic and arteries are hypoplastic. The basilar and vertebral arteries are patent. CTA NECK: Right Carotid System: The common carotid artery and external carotid artery are patent. Mild atherosclerotic calcification at the carotid bifurcation with less than 50% stenosis. The remaining portions of the internal carotid artery demonstrate normal size without significant tania rowing. Left Carotid System: The common carotid artery and external carotid artery are patent. Mild atherosclerotic calcification at the carotid bifurcation with less than 50% stenosis. The remaining portions of the internal caroti d artery demonstrate normal size without significant narrowing. Vertebral arteries are patent without evidence hemodynamically significant stenosis. The left vertebr al artery is dominant. There is a three-vessel aortic arch. The origins of the great vessels are patent. No evidence of hemo dynamically significant stenosis. Patulous fluid-filled esophagus partially visualized. Peripheral reticular opacities within the lungs with right greater than left suggestive fibrotic changes. Multilevel degenerative disc disease IMPRESSION: 1. No evidence of dissection of the cervical internal carotid arteries or vertebral arteries. Less th an 50% stenosis of the bilateral internal carotid arteries. 2. No evidence of high-grade intracranial stenosis or intracranial aneurysm.
--- NOTE | 2022-04-10 13:03 | XR ---
EXAMINATION TYPE: XR chest 2V DATE OF EXAM: 04/10/2022 12:51 PM COMPARISON: Chest radiographs from 03/29/2022, CT chest 03/31/2022 TECHNIQUE: XR chest 2V Frontal and lateral views of the chest. CLINICAL INDICATION:Female, 87 years old with history of altered mental status; FINDINGS: Lungs/Pleura: There is flattening of the diaphragm with increased lucency of the lungs. No evidence o f pneumothorax, pleural effusion or focal consolidation. Elevation right hemidiaphragm. Stable bilate ral calcified granulomas Pulmonary vascularity: Unremarkable. Heart/mediastinum: Cardiomediastinal silhouette is unremarkable. Musculoskeletal: No acute osseous pathology. IMPRESSION: 1. No acute cardiopulmonary disease/process. 2. Stable bilateral calcified granulomas.
[2022-04-10] MEDS ORDERED: ONDANSETRON 4 MG/2 ML VIAL IVP PRN (14:03)
[2022-04-10] MEDS ORDERED: NALOXONE 0.4 MG/ML 1 ML VIAL IV PRN (14:03)
[2022-04-10] MEDS ORDERED: ASPIRIN 81 MG PO STA (14:12)
[2022-04-10] MEDS: SODIUM CHLORIDE 0.9% 1,000 ML IV SCH (14:47)
[2022-04-10] MEDS ORDERED: ALBUTEROL NEBULIZED 2.5 MG/3 ML INHALATION PRN (17:22)
[2022-04-10] MEDS ORDERED: ACETAMINOPHEN TAB 325 MG TAB PO PRN (17:22)
[2022-04-10 18:28] LABS: Appearance,Urine Turbid (Clear); Bacteria,Urine Many /hpf; Bilirubin,Urine Negative (Negative); Blood,Urine Moderate (Negative); Color,Urine Yellow; Glucose,Urine (UA) Negative (Negative); Ketones,Urine Negative (Negative); Leukocyte Esterase,Urine Large (Negative); Nitrite,Urine Positive (Negative); Protein,Urine 2+ (Negative); RBC,Urine 75 /hpf (0-5); Urobilinogen,Urine <2.0 mg/dL (<2.0); WBC,Urine >182 /hpf (0-5)
[2022-04-10 18:29] LABS: Specific Gravity,Urine 1.048 (1.001-1.035)
--- NOTE | 2022-04-10 19:09 | HP ---
HISTORY AND PHYSICAL HISTORY OF PRESENT ILLNESS: She came to the emergency room for UTI, dehydration. She came here for altered mental status. She was admitted for possible stroke. She has dementia. She woke up. She had not had any wet diaper since yesterday. She is altered, came to the hospital. She is too weak and fatigued, chronic debility, recent COVID-19. REVIEW OF SYSTEMS: A 14-point review of systems otherwise negative. PHYSICAL EXAMINATION: VITAL SIGNS: Stable, afebrile. INTEGUMENT: Dry skin turgor. HEENT: Poor mucous membranes. PSYCH: Pleasantly confused. CARDIOVASCULAR: S1, S2. LUNGS: Clear. MUSCULOSKELETAL: She can move 4 extremities. Range of motion full x4. ASSESSMENT: Altered mental status, dehydration, prerenal azotemia, rule out urinary tract infection. Rehydrate. Get a neurology consult. Rule out cerebrovascular accident. Prognosis guarded. MMODL / IJN: [id number] /
[2022-04-10] MEDS: IPRATROPIUM-ALBUTEROL 3 ML NEB INHALATION SCH (20:12)
[2022-04-11] MEDS: SODIUM CHLORIDE 0.9% 1,000 ML IV SCH ×2 (05:41→18:59)
[2022-04-11] MEDS: LEVOTHYROXINE 50 MCG TAB PO SCH (06:00)
[2022-04-11] MEDS ORDERED: LEVOTHYROXINE 50 MCG TAB PO SCH (08:00)
[2022-04-11] MEDS: IPRATROPIUM-ALBUTEROL 3 ML NEB INHALATION SCH ×2 (08:00→19:55)
[2022-04-11] MEDS: SENNOSIDES-DOCUSATE SODIUM 1 EACH TAB PO SCH (09:32)
[2022-04-11] MEDS: PANTOPRAZOLE 40 MG TABLET PO SCH (09:32)
[2022-04-11] MEDS: FERROUS SULFATE 325 MG TAB PO SCH (09:32)
[2022-04-11] MEDS: atenoloL 25 MG TAB PO SCH (09:32)
[2022-04-11] MEDS: MULTIVITAMINS, THERA 1 EACH TAB PO SCH (09:32)
[2022-04-11] MEDS: ASPIRIN 81 MG PO SCH (09:32)
[2022-04-11 10:47] VITALS: BMI 14.0
--- NOTE | 2022-04-11 11:55 | CDI ---
Documentation Clarification Form Date: 04/11/2022 11:34:22 AM From: Nilsa Chen Admit Date: 04/10/2022 2:03:00 PM Patient Name: Emely Whiting Visit Number: [id number] Discharge Date: ATTENTION: The Clinical Documentation Specialists (CDI) and [facility] Coding Staff appreciate your assistance in clarifying documentation. Please respond to the clarification below the line at the bottom and electronically sign. The CDI & [facility] Coding staff will review the response and follow-up if needed. Please note: Queries are made part of the Legal Health Record. If you have any questions, please contact the author of this message via ITS. Dr. Victor Hugo Zhong The Registered Dietitian assessment on 04/11, documents the nutritional diagnosis is underweight. Based on this information and the findings below, is there an additional diagnosis that is clinically appropriate for this patient? History/Risk Factors: 87-year-old female presents to the ED from Adult foster care with altered mental status and no wet diapers since the day before. Medical History: Bedbound; chronic debility following hip fracture. Recently discharged from hospital for UTI and dehydration. 04/10, ED note. Clinical Indicators: RD Consult Assessment: Nutrition intake, good. Consumed 100% breakfast, puree diet. Current BMI: 14.1; Weight 39.5kg; Height 5ft 6in; BMI classification: Underweight. Calculated [place] Body weight 59kg. Estimated Nutritional needs: Weight used Current weight Energy formula 30-35 Kcals Estimated needs in Kcals: 30-35 Kcals/Kg: Energy needs 7388-3893 Kcal Estimated needs in Protein: Protein range 1.0 1.2 grams/kg: Estimated Protein Needs 59-71 grams/day Food / Nutrient: Textured modified diet: Dysphagia Level 1 puree diet: Commercial Treatment: Monitor PO and Supplement intake. Puree diet. Dietary Consult: See above Supplements: Ensure compact TID Is there an additional diagnosis that is clinically appropriate for this patient? [ ] Severe Protein-Calorie Malnutrition [ ] Other condition, please specify [ ] Unable to Determine (Template Last Revised: May 2020) MTDD
--- NOTE | 2022-04-11 13:42 | P.CNNES ---
History of Present Illness Consult date: 04/11/22 Requesting physician: Damian Valerio Reason for Consult: Altered mental status History of Present Illness: Patient is a 87-year-old female with history of advanced dementia, previous UTIs came to the hospital yesterday at 10:06 AM for altered mental status. Patient has severe dementia, not able to provide any history. When asking about headache, patient states it's "not bad". When I asked the scale of headache fr om 1-10, patient states "I don't know", "I don't have a headache". I spoke to patient's daughter who is the power of state attorney on the phone. She mentions that patient does not have any history of dementia. In 2020, she was in the hospital, and while being transferred, she was dropped down and since then she has been nonambulatory. Patient is wheelchair bound. Patient's daughter states that at baseline, she is fully oriented, knows her daughter, grandchildren, primary physician, his nurse and everybody around. Patient's daughter does not believe that mom has any dementia. However she is in acute mental status change on Saturday, yesterday. On Saturday patient was perfectly fine, making jokes, asking questions, but yesterday she has an acute mental status change and she was very confused, only oriented to herself and daughter. Patient's son-in-law brought her to the hospital. Vital signs on arrival blood pressure 107/71, pulse rate 86, temperature 98.0. Blood test shows normal CBC, PT/PTT, normal CMP. Troponin negative. UA shows positive nitrite, large amount of leukocyte esterase, > 182 WBCs and many bacteria. Urine culture so far negative. CT head revealed no acute intra cranial process. Nonspecific white matter changes, likely secondary to chronic small vessel ischemic disease. I personally reviewed CT head, and reveals evidence of significant atrophy, particularly involving the frontal and temporal lobe. There is secondary ex vacuo dilation of the ventricles as a result. No acute process. Chest x-ray revealed no acute cardiopulmonary process. Stable bilateral calcified granulomas. Patient has been seen by Dr. Piedra on 03/09/2021 for altered mental status, which was felt to be related to septic encephalopathy, urosepsis. Patient has underlying dementia. Patient has congenital right upper extremity defect. She lives at [facility] since June [address] Piedra has mentioned that patient has dementia, and recommended neuropsychological testing. Patient's daughter states that they have never seen a neurologist, because they were never recommended to see a neurologist. Review of Systems Patient very confused, with dementia, not able to provide appropriate review of systems. She does deny headache. She is hard of hearing. 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 Past Anesthesia/Blood Transfusion Reactions: No Reported Reaction Past Psychological History: No Psychological Hx Reported Additional Psychological History / Comment(s): Pt resides at [facility] in [place]. She is non-ambulatory and needs assistance when eating per pt's daughter. Smoking Status: Never smoker Past Alcohol Use History: None Reported Past Drug Use History: None Reported - Past Family History Father Additional Family Medical History / Comment(s): heart disease. Mother Additional Family Medical History / Comment(s): heart disease. Sister(s) Family Medical History: Cancer Additional Family Medical History / Comment(s): 3 SISTERS WITH BREAST CA Medications and Allergies Home Medications Medication Instructions Recorded Confirmed Type Levothyroxine Sodium [Synthroid] 50 mcg PO DAILY@79904/01/17 04/10/22 History Multivitamins, Thera [Multivitamin 1 tab PO DAILY@79911/02/19 04/10/22 History (formulary)] Omeprazole 40 mg PO DAILY@79911/02/19 04/10/22 History atenoloL 25 mg PO DAILY@79911/02/19 04/10/22 History Albuterol Inhaler [Ventolin Hfa 2 puff INHALATION RT-Q4H PRN puff 07/08/20 04/10/22 Rx Inhaler] Ipratropium-Albuterol Nebulize 3 ml INHALATION RT-BID@799,199901/06/21 04/10/22 History [Duoneb 0.5 mg-3 mg/3 ml Soln] Sennosides-Docusate Sodium 1 tab PO DAILY@0800 01/06/21 04/10/22 History [Senokot-S] Aspirin EC [Ecotrin Low Dose] 81 mg PO DAILY@0800 03/07/21 04/10/22 History Acetaminophen [Tylenol] 325 mg PO DAILY PRN 05/26/21 04/10/22 History Clotrimazole/Betameth Cream 1 applic TOPICAL BID@799,199903/29/22 04/10/22 History [Lotrisone] Ferrous Sulfate [Iron (65 MG 325 mg PO DAILY@00 03/29/22 04/10/22 History Elemental)] Loperamide [Imodium] 2 - 4 mg PO QID PRN MDD 8mg 03/29/22 04/10/22 History Nystatin 100,000Unit/gm Cream 1 applic TOPICAL BID@799,199903/29/22 04/10/22 History [Mycostatin Cream] Allergies Allergy/AdvReac Type Severity Reaction Status Date / Time cefuroxime Allergy Intermediate Hives Verified 04/10/22 12:40 Physical Examination - Vital Signs Vital Signs: Vital Signs Temp Pulse Pulse Resp BP BP Pulse Ox 04/11/22 08:00 95 04/11/22 07:36 97.6 F 86 17 137/71 95 04/11/22 01:51 98.7 F 81 16 122/60 100 04/10/22 20:23 71 04/10/22 20:13 68 04/10/22 20:00 16 04/10/22 19:43 98.2 F 72 16 120/69 95 04/10/22 18:00 86 20 117/63 95 04/10/22 17:00 77 18 133/71 97 04/10/22 16:00 74 17 129/71 97 04/10/22 15:00 84 20 130/73 97 04/10/22 14:00 78 13 133/84 98 04/10/22 13:45 86 20 130/74 96 04/10/22 13:30 83 14 123/77 97 04/10/22 13:15 80 15 128/73 97 04/10/22 12:45 87 16 131/82 98 04/10/22 12:30 83 18 124/78 97 01/10/23 12:15 81 18 124/78 97 04/10/22 12:00 75 20 114/71 98 04/10/22 11:30 92 14 128/71 98 04/10/22 10:09 98 F 86 18 107/71 98 Intake and Output 04/10/22 04/11/22 04/11/22 22:59 06:59 14:59 Output Total 0 400 Balance 0 -400 Output: Urine 400 Stool 0 Other: Voiding Method External Catheter # Voids 2 1 # Bowel Movements 0 1 1 Weight 39.5 kg Patient is an elderly female, laying comfortably in the bed. Patient is alert awake. Patient is oriented to self. She knows her full name, her date of , but states she is 89 years old. When I asked about the current month, patient started saying aloud on months from April to March and then started all over again. When I asked the city, states "November". When I asked the current president, patient replied "December". Patient has naming issues, as when I showed her pencil, patient states "April". For eyeglasses, patient states "[employer]". For cell phone patient states "catalog". Patient admits to having headache "not bad". When I asked the scale, states "I don't know" and then declined having any headache. Patient able to speak some phrases like "I'll be glad to". "Nice meeting you, take care, goodbye". Patient has some expressive aphasia, with some paraphasic errors as above. Attention, concentration and fund of knowledge is very limited. Patient has positive palmomental reflex. Occasionally appears to have some echolalia. On cranial nerve examination, pupils are equal, round and reacting to light. Patient did not cooperate with visual field testing although she does blink to visual threat bilaterally equally. Extraocular muscles are intact with no nystagmus. Face is symmetric, tongue protrudes to the midline. Palatal elevation and sensation normal, hearing is mild to moderately decreased and shoulder shrug normal, facial sensation normal. On muscle strength testing, there is no pronator drift and the strength is normal in arms and legs distally and proximally. Patient has amputated right walsh nd, perhaps congenital versus acquired. Deep tendon reflexes are symmetric 1+ to 2 and plantars are withdrawal bilaterally. Sensory to touch is equal. Cerebellar function showed no ataxia for [id number] testing. Tone and bulk of muscles normal. Gait deferred.. On general examination, there is no carotid bruit or murmur, S1-S2 audible. Chest is clear on consultation. Abdomen is soft nontender. No organomegaly, bowel sounds present. Peripheral pulses are present. No edema. Results - Laboratory Findings CBC and BMP: 04/10/22 12:14 04/10/22 12:14 Abnormal Lab Findings: Abnormal Labs 04/10/22 04/10/22 12:14 18:00 BUN 21 H Glucose 105 H Albumin 3.4 L Urine Appearance Turbid H Ur Specific [place] 1.048 H Urine Protein 2+ H Urine Blood Moderate H Urine Nitrite Positive H Ur Leukocyte Esterase Large H Urine RBC 75 H Urine WBC >182 H Urine Bacteria Many H Assessment and Plan Assessment: * Altered mental status, likely due to acute delirium/metabolic encephalopathy from acute UTI. * Acute UTI * Rule out underlying cognitive impairment. Patient's daughter denies any history of clinical dementia. Acute mental status changes started yesterday. * Congenital right upper extremity defect * History of breast cancer status post right mastectomy 1982. * Metastatic breast cancer to bone (cervical and lumbar) post radiation in 1990 * History of heart failure * Hypothyroidism * Previous history of UTI. Plan: * Patient has delirium, likely due to acute UTI. Cultures so far negative. Patient currently not on antibiotics. * Discussed with patient's daughter in detail. Patient has acute mental status change yesterday. It could be related to UTI, but we will check MRI of the brain rule out CVA, rule out other structural abnormalities. * EEG rule out any epileptiform activity. * CTA of head showed no evidence of high-grade intracranial stenosis or intracranial aneurysm. * CTA of the neck showed no evidence of dissection of the cervical internal carotid arteries or vertebral arteries. Less than 50% stenosis of bilateral ICA. * Patient's last B12 was 1450, folate > 20.0, TSH normal 2.5, on 03/08/2021. No need to repeat. * Patient's daughter recommended for patient to be seen by neurologist as an outpatient, once her delirium has resolved to rule out underlying cognitive impairment. At this time, we will hold off on any cognitive enhancing medication. * Neurology will follow. Thank you for the consult.
[2022-04-11] MEDS: LEVOFLOXACIN 250MG-D5W PMX 250 MG in DEXTROSE/WATER 1 50ML.BAG IVPB SCH (15:43)
--- NOTE | 2022-04-11 19:25 | P.CONS ---
History of Present Illness - Reason for Consult Consult date: 04/11/22 Urosepsis Requesting physician: Victor Hugo Zhong - Chief Complaint Mental status changes x one daily - History of Present Illness Patient is 87-year-old female with multiple comorbidities and history of recurrent UTIs, resident of adult foster care patient has been brought into the ER yesterday morning for evaluation of mental status changes apparently the patient was noticed to be agitated and less interactive per the daughter, no clear history of any fever or any chills on presentation to the hospital the patient was afebrile and did have normal white count kidney function was normal liver enzymes are normal patient did have a positive UA with concern for a UTI the patient was started on Levaquin infectious disease was consulted today for further management of her antibiotic therapy as patient to have cefuroxime ALLERGY, patient currently denies having any fever or any chills patient denies having any headache no chest pain no shortness of breath or cough no nausea no vomiting no abdominal pain or any diarrhea patient is currently getting investigation for neurology for possible CVA Review of Systems Positive point has been mentioned in the HPI rest of the systems are negative Past Medical History Past Medical History: Cancer, Heart Failure, COPD, Dementia, GERD/Reflux, Thy roid Disorder Additional Past Medical History / Comment(s): HIATAL HERNIA, metastatic breast ca, bone cancer(thoracic spine), 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 Past Anesthesia/Blood Transfusion Reactions: No Reported Reaction Past Psychological History: No Psychological Hx Reported Additional Psychological History / Comment(s): Pt resides at [facility] in [place]. She is non-ambulatory and needs assistance when eating per pt's daughter. Smoking Status: Never smoker Past Alcohol Use History: None Reported Past Drug Use History: None Reported - Past Family History Father Additional Family Medical History / Comment(s): heart disease. Mother Additional Family Medical History / Comment(s): heart disease. Sister(s) Family Medical History: Cancer Additional Family Medical History / Comment(s): 3 SISTERS WITH BREAST CA Medications and Allergies Home Medications Medication Instructions Recorded Confirmed Type Levothyroxine Sodium [Synthroid] 50 mcg PO DAILY@0800 04/01/17/10/23 History Multivitamins, Thera [Multivitamin 1 tab PO DAILY@79911/02/19 04/10/22 History (formulary)] Omeprazole 40 mg PO DAILY@79911/02/19 04/10/22 History atenoloL 25 mg PO DAILY@79911/02/19 04/10/22 History Albuterol Inhaler [Ventolin Hfa 2 puff INHALATION RT-Q4H PRN puff 07/08/20 04/10/22 Rx Inhaler] Ipratropium-Albuterol Nebulize 3 ml INHALATION RT-BID@799,199901/06/21 04/10/22 History [Duoneb 0.5 mg-3 mg/3 ml Soln] Sennosides-Docusate Sodium 1 tab PO DAILY@79901/06/21 04/10/22 History [Senokot-S] Aspirin EC [Ecotrin Low Dose] 81 mg PO DAILY@79903/07/21 04/10/22 History Acetaminophen [Tylenol] 325 mg PO DAILY PRN 05/26/21 04/10/22 History Clotrimazole/Betameth Cream 1 applic TOPICAL BID@799,199903/29/22 04/10/22 History [Lotrisone] Ferrous Sulfate [Iron (65 MG 325 mg PO DAILY@79903/29/22 04/10/22 History Elemental)] Loperamide [Imodium] 2 - 4 mg PO QID PRN MDD 8mg 03/29/22 04/10/22 History Nystatin 100,000Unit/gm Cream 1 applic TOPICAL BID@799,199903/29/22 04/10/22 History [Mycostatin Cream] Amoxic-Pot Clav 875-125Mg 1 each PO Q12HR 10 Days #20 tab 04/15/22 Rx [Augmentin 875-125] Thiamine [Vitamin B-1] 100 mg PO DAILY 90 Days #80 tab 04/15/22 Rx Allergies Allergy/AdvReac Type Severity Reaction Status Date / Time cefuroxime Allergy Intermediate Hives Verified 04/10/22 12:40 Physical Exam Vitals: Vital Signs Temp Pulse Pulse Resp BP BP Pulse Ox 04/11/22 12:11 97.7 F 75 17 120/61 98 04/11/22 08:00 95 04/11/22 07:36 97.6 F 86 17 137/71 95 04/11/22 01:51 98.7 F 81 16 122/60 100 04/10/22 20:23 71 04/10/22 20:13 68 04/10/22 20:00 16 04/10/22 19:43 98.2 F 72 16 120/69 95 04/10/22 18:00 86 20 117/63 95 04/10/22 17:00 77 18 133/71 97 04/10/22 16:00 74 17 129/71 97 04/10/22 15:00 84 20 130/73 97 04/10/22 14:00 78 13 133/84 98 Intake and Output 04/10/22 04/11/22 04/11/22 22:59 06:59 14:59 Output Total 0 400 Balance 0 -400 Output: Urine 400 Stool 0 Other: Voiding Method External Catheter # Voids 2 1 # Bowel Movements 0 1 1 Weight 39.5 kg 39.5 kg GENERAL DESCRIPTION: Elderly female lying in bed, no distress. No tachypnea or accessory muscle of respiration use. HEENT: Shows Pallor , no scleral icterus. Oral mucous membrane is dry. No pharyngeal erythema or thrush NECK: Trachea central, no thyromegaly. LUNGS: Unlabored breathing. Clear to auscultation anteriorly. No wheeze or crackle. HEART: S1, S2, regular rate and rhythm. No loud murmur ABDOMEN: Soft, no tenderness , guarding or rigidity, no organomegaly EXTREMITIES: No edema of feet. SKIN: No rash, no masses palpable. NEUROLOGICAL: The patient is awake, alert, oriented x2, mood and affect normal. Results CBC & Chem 7: 04/10/22 12:14 04/10/22 12:14 Labs: Abnormal Lab Results - Last 24 Hours (Table) 04/10/22 Range/Units 18:00 Urine Appearance Turbid H (Clear) Ur Specific [place] 1.048 H (1.001-1.035) Urine Protein 2+ H (Negative) Urine Blood Moderate H (Negative) Urine Nitrite Positive H (Negative) Ur Leukocyte Esterase Large H (Negative) Urine RBC 75 H (0-5) /hpf Urine WBC >182 H (0-5) /hpf Urine Bacteria Many H (None) /hpf Microbiology - Last 24 Hours (Table) 04/10/22 18:00 Urine Culture - Preliminary Urine,Voided Assessment and Plan (1) UTI (urinary tract infection) Status: Acute Code(s): N39.0 - URINARY TRACT INFECTION, SITE NOT SPECIFIED SNOMED Code(s): 01176726 Plan: 1patient is in the hospital with mental status changes decreased level of responsiveness is likely multifactorial in this patient with the question of possible UTI as the patient did have significantly positive UA likely from enteric gram-negative pathogen 2-patient with cefuroxime ALLERGIC to limit the number of antibiotic safety use 3-patient to continue with the Levaquin in view of clinical response while waiting for the cultures to finalize We will follow on clinical condition and cultures to further adjust medication if needed Thank you for this consultation will follow this patient with you Time with Patient: Greater than 30
--- NOTE | 2022-04-11 19:48 | EEG ---
ELECTROENCEPHALOGRAM REPORT PREAMBLE: This is an 87-year-old female with UTI, came with acute altered mental status. This study is performed to evaluate for any epileptiform activity. EEG FINDINGS: This is a 21-channel digital EEG recorded with video component, utilizing 10/20 international system with referential and bipolar montages. Background consists of well-developed, moderately well regulated, mixed frequencies of 6 to 7 hertz theta, intermixed with some alpha and some fast frequency beta activity seen in bihemispheric region. Background does not seem to be clearly reactive to eye opening and closing. Photic stimulation was not performed. Different stages of sleep were not seen. No focal or generalized epileptiform activity was seen. IMPRESSION: This is an abnormal EEG due to the background slowing of mild degree. This is suggestive of generalized cerebral dysfunction as can be seen with encephalopathy related to metabolic, vascular, or degenerative causes. No epileptiform activity was seen. MMODL / IJN: [id number] /
--- NOTE | 2022-04-11 21:03 | PN ---
PROGRESS NOTE Severe protein-calorie malnutrition. MMODL / IJN: [id number] /
--- NOTE | 2022-04-11 22:27 | PN ---
PROGRESS NOTE SUBJECTIVE: An 87-year-old white female remains on Protonix, iron, Synthroid, Tenormin, DuoNeb, aspirin, came in with altered mental status, possibly UTI, dehydration. OBJECTIVE: VITAL SIGNS: Blood pressure 120s to 130s over 60s to 70s, temp 97.7, pulse 70s to 80s, respiratory rate 16 to 18, O2 of 98% on room air. CARDIOVASCULAR: S1, S2. LUNGS: Clear. GI: Soft. LABORATORY DATA: Her labs were reviewed, essentially looked pretty good. She has large amount of leukocyte esterase, red cells, white cells. ASSESSMENT AND PLAN: Wait for urine culture. Continue on broad-spectrum antibiotics. Get Infectious Disease to see her. Possibly she has metabolic encephalopathy secondary to urinary tract infection, urosepsis and dehydration. Continue current treatments. Prognosis guarded. MMODL / IJN: [id number] /
[2022-04-12] MEDS: LEVOTHYROXINE 50 MCG TAB PO SCH (06:40)
[2022-04-12] MEDS: SODIUM CHLORIDE 0.9% 1,000 ML IV SCH ×2 (06:40→20:17)
[2022-04-12] MEDS: IPRATROPIUM-ALBUTEROL 3 ML NEB INHALATION SCH ×2 (08:23→19:47)
[2022-04-12] MEDS: FERROUS SULFATE 325 MG TAB PO SCH (09:07)
[2022-04-12] MEDS: ASPIRIN 81 MG PO SCH (09:07)
[2022-04-12] MEDS: SENNOSIDES-DOCUSATE SODIUM 1 EACH TAB PO SCH (09:07)
[2022-04-12] MEDS: atenoloL 25 MG TAB PO SCH (09:07)
[2022-04-12] MEDS: MULTIVITAMINS, THERA 1 EACH TAB PO SCH (09:07)
[2022-04-12] MEDS: PANTOPRAZOLE 40 MG TABLET PO SCH (09:07)
[2022-04-12] MEDS: LEVOFLOXACIN 250MG-D5W PMX 250 MG in DEXTROSE/WATER 1 50ML.BAG IVPB SCH (14:18)
--- NOTE | 2022-04-12 19:05 | XR ---
EXAMINATION TYPE: XR orbit pre-MRI foreign body DATE OF EXAM: 04/12/2022 6:34 PM CLINICAL INDICATION:Female, 87 years old with history of MRI clearance; , Rule out foreign body. COMPARISON: 04/10/2022 TECHNIQUE: 2 views the orbits frontal, lateral and Khanna. FINDINGS: Radiographic evaluation of the orbits fail to demonstrate evidence of an orbital fracture. There is n o radiopaque foreign body identified. The adjacent paranasal sinuses are well aerated an without evid ence of intra-cavitary fluid accumulation. IMPRESSION: No radiographic evidence of radiopaque foreign body.
--- NOTE | 2022-04-12 19:26 | P.PN ---
Subjective Progress Note Date: 04/12/22 Principal diagnosis: Urinary tract infection Patient is 87-year-old female with multiple comorbidities and history of recurrent UTIs, resident of adult foster care patient has been brought into the ER yesterday morning for evaluation of mental status changes apparently the patient was noticed to be agitated and less interactive per the daughter, patient noticed to have positive UA concerning for symptomatic urinary tract infection. On today's evaluation that is 04/12/2022, the patient denies having any fever or any chills patient is breathing comfortably on room air no chest pain shortness of cough no abdominal pain no diarrhea Objective - Vital Signs Vital signs: Vital Signs Temp 98 F 04/12/22 06:55 Pulse 96 04/12/22 08:37 Resp 16 04/12/22 06:55 BP 110/63 04/12/22 06:55 Pulse Ox 97 04/12/22 08:25 FiO2 Intake & Output 04/11/22 04/12/22 04/12/22 18:59 06:59 18:59 Intake Total 590 Output Total 0 Balance 590 Weight 39.5 kg Intake: Oral 590 Output: Stool 0 Other: Voiding Method External Catheter # Voids 1 3 1 # Bowel Movements 1 - Exam GENERAL DESCRIPTION: An elderly female lying in bed in no distress RESPIRATORY SYSTEM: Unlabored breathing , decreased breath sounds at bases HEART: S1 S2 regular rate and rhythm , ABDOMEN: Soft , no tenderness EXTREMITIES: No edema feet - Labs CBC & Chem 7: 04/10/22 12:14 04/10/22 12:14 Labs: Microbiology - Last 24 Hours (Table) 04/10/22 18:00 Urine Culture - Preliminary Urine,Voided Gram Neg Bacilli Assessment and Plan (1) UTI (urinary tract infection) Current Visit: No Status: Acute Code(s): N39.0 - URINARY TRACT INFECTION, SITE NOT SPECIFIED SNOMED Code(s): 21266223 Plan: 1patient is in the hospital with mental status changes decreased level of responsiveness is likely multifactorial in this patient with the question of possible UTI as the patient did have significantly positive UA likely from enteric gram-negative pathogen 2-patient with cefuroxime ALLERGIC to limit the number of antibiotic safety use 3-patient urine culture did grew Proteus that was resistant to Levaquin as per discussion with the pharmacist patient has received Augmentin last year and has tolerated it without any problem we will discontinue Levaquin and start the patient on Unasyn and monitor clinical course closely Time with Patient: Less than 30
[2022-04-12] MEDS: AMPICILLIN-SULBACTAM 1.5 GM in SODIUM CHLORIDE 0.9% 50 ML IVPB SCH (21:07)
[2022-04-13] MEDS: AMPICILLIN-SULBACTAM 1.5 GM in SODIUM CHLORIDE 0.9% 50 ML IVPB SCH ×3 (05:21→21:33)
[2022-04-13] MEDS: LEVOTHYROXINE 50 MCG TAB PO SCH (05:22)
[2022-04-13] MEDS: IPRATROPIUM-ALBUTEROL 3 ML NEB INHALATION SCH ×2 (08:16→20:12)
[2022-04-13] MEDS: FERROUS SULFATE 325 MG TAB PO SCH (08:45)
[2022-04-13] MEDS: atenoloL 25 MG TAB PO SCH (08:45)
[2022-04-13] MEDS: ASPIRIN 81 MG PO SCH (08:45)
[2022-04-13] MEDS: MULTIVITAMINS, THERA 1 EACH TAB PO SCH (08:46)
[2022-04-13] MEDS: PANTOPRAZOLE 40 MG TABLET PO SCH (08:46)
[2022-04-13] MEDS: SENNOSIDES-DOCUSATE SODIUM 1 EACH TAB PO SCH (08:46)
--- NOTE | 2022-04-13 11:08 | P.PN ---
Subjective Progress Note Date: 04/12/22 Patient was seen for a follow-up. Patient is laying comfortably in the bed. Offers no complaints. Patient still very disoriented as per examination below. Objective - Vital Signs Vital signs: Vital Signs Temp 98.7 F 04/12/22 12:30 Pulse 76 04/12/22 12:30 Resp 17 04/12/22 12:30 BP 121/69 04/12/22 12:30 Pulse Ox 98 04/12/22 12:30 FiO2 Intake & Output 04/11/22 04/12/22 04/12/22 18:59 06:59 18:59 Intake Total 590 Output Total 0 Balance 590 Weight 39.5 kg Intake: Oral 590 Output: Stool 0 Other: Voiding Method External Catheter Diaper Incontinent # Voids 1 3 1 # Bowel Movements 1 1 - Exam On examination patient is alert and awake in no distress. Patient could not tell the city or state she lives in, the month or the year, her age, name of the president or how many children she has. She knows her date of April [birth year], but does not know her year. Rest of examination is unchanged. - Labs CBC & Chem 7: 04/10/22 12:14 04/10/22 12:14 Labs: Microbiology - Last 24 Hours (Table) 04/10/22 18:00 Urine Culture - Preliminary Urine,Voided Gram Neg Bacilli Assessment and Plan Assessment: * Altered mental status, likely due to acute delirium/metabolic encephalopathy from acute UTI. * Acute UTI with gram-negative bacilli (Proteus mirabilis) * Rule out underlying cognitive impairment. Patient's daughter denies any history of clinical dementia. Acute mental status changes started yesterday. * Congenital right upper extremity defect * History of breast cancer status post right mastectomy 1982. * Metastatic breast cancer to bone (cervical and lumbar) post radiation in 1990 * History of heart failure * Hypothyroidism * Previous history of UTI. Plan: * Patient has delirium, likely due to acute UTI. Cultures has grown gram- negative bacilli, Proteus mirabilis. Patient started on Unasyn, ID on board. * Discussed with patient's daughter in detail. Patient has acute mental status change yesterday. It could be related to UTI, but we will check MRI of the brain rule out CVA, rule out other structural abnormalities. * EEG was performed, which was abnormal due to background slowing of mild degree. This is suggestive of generalized cerebral dysfunction as can be seen with encephalopathy related to metabolic, vascular or degenerative causes. No epileptiform activity was seen. * CTA of head showed no evidence of high-grade intracranial stenosis or intracranial aneurysm. * CTA of the neck showed no evidence of dissection of the cervical internal carotid arteries or vertebral arteries. Less than 50% stenosis of bilateral ICA. * Patient's last B12 was 1450, folate > 20.0, TSH normal 2.5, on 03/08/2021. No need to repeat. * Patient's daughter recommended for patient to be seen by neurologist as an outpatient, once her delirium has resolved to rule out underlying cognitive impairment. At this time, we will hold off on any cognitive enhancing medication. * Await MRI of the brain.
--- NOTE | 2022-04-13 11:20 | MR ---
EXAMINATION TYPE: MR brain wo con DATE OF EXAM: 04/13/2022 11:12 AM COMPARISON: CT 04/10/2022. CLINICAL INDICATION:Female, 87 years old with history of AMS, rule out CVA; TECHNIQUE: Multi planar, multi sequence imaging was performed through the brain including: T1, T2, In version recovery, Diffusion weighted imaging, and gradient echo imaging. No gadolinium was given. FINDINGS: Diffuse cerebral atrophy with proportional dilation of the ventricular system. Scattered f oci and confluent areas of of high T2 signal intensity are seen within the periventricular and deep w zeferino matter. Midline structures show no abnormality. Diffusion-weighted imaging shows no evidence of restricted diffusion. The susceptibility weighted images do not reveal any evidence for micro-hemorrh age. The bone marrow signal is within normal limits. Paranasal sinuses and mastoid air cells: Mild scattered paranasal sinus disease. Visualized orbits: Orbital contents are intact. IMPRESSION: 1. No evidence of intracranial mass or acute/subacute infarct. 2. Extensive nonspecific white matter changes, likely secondary to small vessel ischemic disease.
[2022-04-13] MEDS: SODIUM CHLORIDE 0.9% 1,000 ML IV SCH ×2 (12:01→23:18)
--- NOTE | 2022-04-13 13:20 | P.PN ---
Subjective Progress Note Date: 04/13/22 Principal diagnosis: Urinary tract infection Patient is 87-year-old female with multiple comorbidities and history of recurrent UTIs, resident of adult foster care patient has been brought into the ER yesterday morning for evaluation of mental status changes apparently the patient was noticed to be agitated and less interactive per the daughter, patient noticed to have positive UA concerning for symptomatic urinary tract infection. On today's evaluation that is 04/13/2022, the patient continues to be afebrile patient is breathing comfortably on room air , the patient denies chest pain shortness of cough no abdominal pain no diarrhea Objective - Vital Signs Vital signs: Vital Signs Temp 98.2 F 04/13/22 07:45 Pulse 80 04/13/22 08:29 Resp 16 04/13/22 07:45 BP 138/80 04/13/22 07:45 Pulse Ox 98 04/13/22 08:18 FiO2 Intake & Output 04/12/22 04/13/22 04/13/22 18:59 06:59 18:59 Intake Total 480 Output Total 0 Balance 480 0 Weight 39.5 kg Intake: Oral 480 Output: Stool 0 Other: Voiding Method Diaper Diaper Diaper Incontinent Incontinent Incontinent # Voids 1 2 # Bowel Movements 1 - Exam GENERAL DESCRIPTION: An elderly female lying in bed in no distress RESPIRATORY SYSTEM: Unlabored breathing , decreased breath sounds at bases HEART: S1 S2 regular rate and rhythm , ABDOMEN: Soft , no tenderness EXTREMITIES: No edema feet - Labs CBC & Chem 7: 04/10/22 12:14 04/10/22 12:14 Labs: Microbiology - Last 24 Hours (Table) 04/10/22 18:00 Urine Culture - Final Urine,Voided Proteus mirabilis Assessment and Plan (1) UTI (urinary tract infection) Current Visit: No Status: Acute Code(s): N39.0 - URINARY TRACT INFECTION, SITE NOT SPECIFIED SNOMED Code(s): 32733963 Plan: 1patient is in the hospital with mental status changes decreased level of responsiveness is likely multifactorial in this patient with the question of possible UTI as the patient did have significantly positive UA likely from enteric gram-negative pathogen 2-patient with cefuroxime ALLERGIC to limit the number of antibiotic safety use 3-patient urine culture did grew Proteus that was resistant to Levaquin as per discussion with the pharmacist patient has received Augmentin last year and has tolerated it without any problem 4-patient seemed to be doing well on Unasyn which will be continued while inpatient and transitioned to oral Augmentin no discharge Time with Patient: Less than 30
--- NOTE | 2022-04-13 19:35 | PN ---
PROGRESS NOTE SUBJECTIVE: An 87-year-old white female came in with weakness, malnutrition, generalized weakness. She is doing better. Sat 98, temp 98, pulse 80s, respirations 16 to 18. Remains on broad-spectrum antibiotics for UTI, shows a Proteus mirabilis positive UTI for which IV antibiotics have been given. Wait for Dr. Rivera's recommendations. OBJECTIVE: CARDIOVASCULAR: S1, S2. LUNGS: Clear. GI: Soft. ASSESSMENT: Proteus mirabilis. She is drug resistant to Levaquin and Cipro, ampicillin resistant, Bactrim resistant, nitrofurantoin resistant, possible IV antibiotics will be needed to clear this UTI. Continue current treatment. Await for Dr. Rivera's recommendations, prognosis guarded. MMODL / IJN: [id number] /
--- NOTE | 2022-04-13 22:00 | P.PN ---
Subjective Progress Note Date: 04/13/22 Patient was seen for a follow-up. Patient is laying comfortably in the bed. Offers no complaints. Patient still very disoriented as per examination below. Patient denies headache. Patient could not tell how many children she has. Telemetry monitoring showing sinus rhythm, sinus tachycardia in the 120s, with some PACs and PVCs. Objective - Vital Signs Vital signs: Vital Signs Temp 98.0 F 04/13/22 13:45 Pulse 81 04/13/22 13:45 Resp 16 04/13/22 13:45 BP 94/55 04/13/22 13:45 Pulse Ox 98 04/13/22 13:45 FiO2 Intake & Output 04/12/22 04/13/22 04/13/22 18:59 06:59 18:59 Intake Total 480 Output Total 0 Balance 480 0 Weight 39.5 kg Intake: Oral 480 Output: Stool 0 Other: Voiding Method Diaper Diaper Diaper Incontinent Incontinent Incontinent # Voids 1 2 1 # Bowel Movements 1 1 - Exam On examination patient is alert and awake in no distress. Patient could not tell the city or state she lives in, the month or the year, her age, name of the president or how many children she has. Today she was able to tell me her complete date of but not her age. Her muscle strength is normal. Face is symmetric. Rest of the examination is nonfocal. - Labs CBC & Chem 7: 04/10/22 12:14 04/10/22 12:14 Labs: Microbiology - Last 24 Hours (Table) 04/10/22 18:00 Urine Culture - Final Urine,Voided Proteus mirabilis Assessment and Plan Assessment: * Altered mental status, likely due to acute delirium/metabolic encephalopathy from acute UTI. * Acute UTI with gram-negative bacilli (Proteus mirabilis) * Rule out underlying cognitive impairment. Patient's daughter denies any history of clinical dementia. Acute mental status changes started yesterday. 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 * Metastatic breast cancer to bone (cervical and lumbar) post radiation in 1990 * History of heart failure * Hypothyroidism * Previous history of UTI. Plan: * MRI of the brain revealed no evidence of acute intracranial process, acute stroke. Extensive nonspecific white matter changes, likely secondary to small vessel ischemic disease. On my review, there is evidence of significant generalized atrophy. The ventricles are significantly prominent particularly the lateral and third ventricles, including the temporal horns. However the fourth ventricles is normal in size. This raises suspicion for normal pressure hydrocephalus. * I spoke to patient's daughter on the phone. Patient suffered from falls on 01/27/2020, and since then she has not been ambulatory. Patient has incontinence of urine. With recent memory impairment, she probably has some component of normal pressure hydrocephalus. Patient's daughter was recommended to have patient follow up with neurosurgeon, if they want to pursue further in this regards. With her advanced age, uncertain if shunt would be indicated, especially that she has not been ambulatory for quite some time. * Patient has delirium, likely due to acute UTI. Cultures has grown Proteus m irabilis. Patient started on Unasyn, ID on board. * EEG was performed, which was abnormal due to background slowing of mild degree. This is suggestive of generalized cerebral dysfunction as can be seen with encephalopathy related to metabolic, vascular or degenerative causes. No epileptiform activity was seen. * CTA of head showed no evidence of high-grade intracranial stenosis or intracranial aneurysm. * CTA of the neck showed no evidence of dissection of the cervical internal carotid arteries or vertebral arteries. Less than 50% stenosis of bilateral ICA. * Patient's last B12 was 1450, folate > 20.0, TSH normal 2.5, on 03/08/2021. No need to repeat. * Patient's daughter recommended for patient to be seen by neurologist as an outpatient, once her delirium has resolved to rule out underlying cognitive impairment versus normal pressure hydrocephalus . At this time, we will hold off on any cognitive enhancing medication. * Discussed with patient's daughter in detail.
[2022-04-14] MEDS: AMPICILLIN-SULBACTAM 1.5 GM in SODIUM CHLORIDE 0.9% 50 ML IVPB SCH ×3 (04:45→20:28)
[2022-04-14] MEDS: SODIUM CHLORIDE 0.9% 1,000 ML IV SCH (04:47)
[2022-04-14] MEDS: LEVOTHYROXINE 50 MCG TAB PO SCH (07:00)
[2022-04-14] MEDS: IPRATROPIUM-ALBUTEROL 3 ML NEB INHALATION SCH ×2 (07:43→19:57)
[2022-04-14] MEDS: SENNOSIDES-DOCUSATE SODIUM 1 EACH TAB PO SCH (08:38)
[2022-04-14] MEDS: PANTOPRAZOLE 40 MG TABLET PO SCH (08:38)
[2022-04-14] MEDS: atenoloL 25 MG TAB PO SCH (08:38)
[2022-04-14] MEDS: ASPIRIN 81 MG PO SCH (08:38)
[2022-04-14] MEDS: FERROUS SULFATE 325 MG TAB PO SCH (08:38)
[2022-04-14] MEDS: THIAMINE 100 MG TAB PO SCH (08:38)
[2022-04-14] MEDS: MULTIVITAMINS, THERA 1 EACH TAB PO SCH (08:38)
--- NOTE | 2022-04-14 15:42 | P.PN ---
Subjective Progress Note Date: 04/14/22 Principal diagnosis: Urinary tract infection Patient is 87-year-old female with multiple comorbidities and history of recurrent UTIs, resident of adult foster care patient has been brought into the ER yesterday morning for evaluation of mental status changes apparently the patient was noticed to be agitated and less interactive per the daughter, patient noticed to have positive UA concerning for symptomatic urinary tract infection. On today's evaluation that is 04/14/2022, the patient denies any fever or chills, patient is breathing comfortably on room air , the patient denies chest pain shortness of cough no abdominal pain no diarrhea, patient overall feeling b yahir Objective - Vital Signs Vital signs: Vital Signs Temp 98.3 F 04/14/22 07:55 Pulse 87 04/14/22 07:55 Resp 15 04/14/22 07:55 BP 101/53 04/14/22 07:55 Pulse Ox 96 04/14/22 07:55 FiO2 Intake & Output 04/13/22 04/14/22 04/14/22 18:59 06:59 18:59 Output Total 0 Balance 0 Weight 39.5 kg Output: Stool 0 Other: Voiding Method Diaper Diaper Diaper Incontinent Incontinent Incontinent # Voids 5 2 # Bowel Movements 2 2 - Exam GENERAL DESCRIPTION: An elderly female lying in bed in no distress RESPIRATORY SYSTEM: Unlabored breathing , decreased breath sounds at bases HEART: S1 S2 regular rate and rhythm , ABDOMEN: Soft , no tenderness EXTREMITIES: No edema feet - Labs CBC & Chem 7: 04/10/22 12:14 04/10/22 12:14 Assessment and Plan (1) UTI (urinary tract infection) Current Visit: No Status: Acute Code(s): N39.0 - URINARY TRACT INFECTION, SITE NOT SPECIFIED SNOMED Code(s): 17484477 Plan: 1patient is in the hospital with mental status changes decreased level of responsiveness is likely multifactorial in this patient with the question of possible UTI as the patient did have significantly positive UA likely from enteric gram-negative pathogen 2-patient with cefuroxime ALLERGIC to limit the number of antibiotic safety use 3-patient urine culture did grew Proteus that was resistant to Levaquin as per discussion with the pharmacist patient has received Augmentin last year and has tolerated it without any problem 4-patient has shown clinical improvement on Unasyn which will be continued while inpatient and finishing therapy with oral Augmentin no discharge Time with Patient: Less than 30
[2022-04-15] MEDS: SODIUM CHLORIDE 0.9% 1,000 ML IV SCH (02:29)
[2022-04-15] MEDS: AMPICILLIN-SULBACTAM 1.5 GM in SODIUM CHLORIDE 0.9% 50 ML IVPB SCH ×2 (05:32→14:46)
[2022-04-15] MEDS: LEVOTHYROXINE 50 MCG TAB PO SCH (06:14)
[2022-04-15] MEDS: IPRATROPIUM-ALBUTEROL 3 ML NEB INHALATION SCH (07:24)
[2022-04-15] MEDS: ASPIRIN 81 MG PO SCH (08:47)
[2022-04-15] MEDS: MULTIVITAMINS, THERA 1 EACH TAB PO SCH (08:47)
[2022-04-15] MEDS: SENNOSIDES-DOCUSATE SODIUM 1 EACH TAB PO SCH (08:47)
[2022-04-15] MEDS: PANTOPRAZOLE 40 MG TABLET PO SCH (08:47)
[2022-04-15] MEDS: THIAMINE 100 MG TAB PO SCH (08:47)
[2022-04-15] MEDS: atenoloL 25 MG TAB PO SCH (08:47)
[2022-04-15] MEDS: FERROUS SULFATE 325 MG TAB PO SCH (08:47)
--- NOTE | 2022-04-15 10:18 | P.PN ---
Subjective Progress Note Date: 04/14/22 Patient was seen for a follow-up. Patient is sitting comfortably in the recliner. Offers no complaints. Patient still very disoriented as per examination below. Patient denies headache. Patient could not tell how many children she has. Objective - Vital Signs Vital signs: Vital Signs Temp 98.3 F 04/14/22 07:55 Pulse 87 04/14/22 07:55 Resp 15 04/14/22 07:55 BP 101/53 04/14/22 07:55 Pulse Ox 96 04/14/22 07:55 FiO2 Intake & Output 04/13/22 04/14/22 04/14/22 18:59 06:59 18:59 Output Total 0 Balance 0 Weight 39.5 kg Output: Stool 0 Other: Voiding Method Diaper Diaper Diaper Incontinent Incontinent Incontinent # Voids 5 2 # Bowel Movements 2 2 - Exam On examination patient is alert and awake in no distress. Patient could not tell the city or state she lives in, the month or the year, her age, name of the president or how many children she has. Today she was able to tell me her complete date of but not her age. Her muscle strength is normal. Face is symmetric. Rest of the examination is nonfocal. - Labs CBC & Chem 7: 04/10/22 12:14 04/10/22 12:14 Assessment and Plan Assessment: * Altered mental status, likely due to acute delirium/metabolic encephalopathy from acute UTI. * Acute UTI with gram-negative bacilli (Proteus mirabilis) * Rule out underlying cognitive impairment. Patient's daughter denies any histo ry of clinical dementia. Acute mental status changes started just prior to arrival. 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 * Metastatic breast cancer to bone (cervical and lumbar) post radiation in 1990 * History of heart failure * Hypothyroidism * Previous history of UTI. Plan: * MRI of the brain revealed no evidence of acute intracranial process, acute stroke. Extensive nonspecific white matter changes, likely secondary to small vessel ischemic disease. On my review, there is evidence of significant generalized atrophy. The ventricles are significantly prominent particularly the lateral and third ventricles, including the temporal horns. However the fourth ventricles is normal in size. This raises suspicion for normal pressure hydrocephalus. * I spoke to patient's daughter on the phone. Patient suffered from falls on 01/27/2020, and since then she has not been ambulatory. Patient has incontinence of urine. With recent memory impairment, she probably has some component of normal pressure hydrocephalus. Patient's daughter was recommended to have patient follow up with neurosurgeon, if they want to pursue further in this regards. With her advanced age, uncertain if shunt would be indicated, especially that she has not been ambulatory for quite some time. * Patient has delirium, likely due to acute UTI. Cultures has grown Proteus mirabilis. Patient started on Unasyn, ID on board. * EEG was performed, which was abnormal due to background slowing of mild degree. This is suggestive of generalized cerebral dysfunction as can be seen with encephalopathy related to metabolic, vascular or degenerative causes. No epileptiform activity was seen. * CTA of head showed no evidence of high-grade intracranial stenosis or intracranial aneurysm. * CTA of the neck showed no evidence of dissection of the cervical internal carotid arteries or vertebral arteries. Less than 50% stenosis of bilateral ICA. * Patient's last B12 was 1450, folate > 20.0, TSH normal 2.5, on 03/08/2021. No need to repeat. * Patient's daughter recommended for patient to be seen by neurologist as an outpatient, once her delirium has resolved to rule out underlying cognitive impairment versus normal pressure hydrocephalus . At this time, we will hold off on any cognitive enhancing medication. * Neurologically clear. Patient to follow up with a local neurologist as an outpatient.
[2022-04-15 13:05] VITALS: BP 144/76; PULSE 81; RESP 18; TEMP 98.7
[2022-04-15] MEDS ORDERED: AMOXIC-POT CLAV 875-125MG 1 EACH TAB PO SCH (21:00)
--- NOTE | 2022-04-15 21:27 | P.PN ---
Subjective Progress Note Date: 04/15/22 Principal diagnosis: Urinary tract infection Patient is 87-year-old female with multiple comorbidities and history of recurrent UTIs, resident of adult foster care patient has been brought into the ER yesterday morning for evaluation of mental status changes apparently the patient was noticed to be agitated and less interactive per the daughter, patient noticed to have positive UA concerning for symptomatic urinary tract infection. On today's evaluation that is 04/15/2022, the patient remains to be afebrile, patient is breathing comfortably on room air , the patient denies chest pain shortness of breath and no significant cough no abdominal pain no diarrhea, pat ient is feeling better Objective - Vital Signs Vital signs: Vital Signs Temp 98.7 F 04/15/22 12:44 Pulse 81 04/15/22 12:44 Resp 18 04/15/22 12:44 BP 144/76 04/15/22 12:44 Pulse Ox 94 L 04/15/22 12:44 FiO2 Intake & Output 04/14/22 04/15/22 04/15/22 18:59 06:59 18:59 Intake Total 950 590 Balance 950 590 Intake: Intake, IV Titration 950 Amount Ampicillin-Sulbactam 1.5 50 gm In Sodium Chloride 0.9 % 50 ml @ 100 mls/hr IVPB Q8H [facility] Rx#:[id number] Sodium Chloride 0.9% 1, 900 000 ml @ 75 mls/hr IV . [id number] [facility] Rx#:[id number] Oral 590 Other: Voiding Method Diaper Diaper Diaper Incontinent Incontinent Incontinent # Voids 3 3 1 # Bowel Movements 1 - Exam GENERAL DESCRIPTION: An elderly female lying in bed in no distress RESPIRATORY SYSTEM: Unlabored breathing , decreased breath sounds at bases HEART: S1 S2 regular rate and rhythm , ABDOMEN: Soft , no tenderness EXTREMITIES: No edema feet - Labs CBC & Chem 7: 04/10/22 12:14 04/10/22 12:14 Assessment and Plan (1) UTI (urinary tract infection) Status: Acute Code(s): N39.0 - URINARY TRACT INFECTION, SITE NOT SPECIFIED SNOMED Code(s): 23582416 Plan: 1patient is in the hospital with mental status changes decreased level of responsiveness is likely multifactorial in this patient with the question of possible UTI as the patient did have significantly positive UA likely from enteric gram-negative pathogen 2-patient with cefuroxime ALLERGIC to limit the number of antibiotic safety use 3-patient urine culture did grew Proteus that was resistant to Levaquin as per discussion with the pharmacist patient has received Augmentin last year and has tolerated it without any problem 4-patient has shown clinical improvement on Unasyn , the patient will be able to finish therapy with oral Augmentin and close outpatient follow-up Time with Patient: Less than 30
--- NOTE | 2022-04-16 03:01 | PN ---
PROGRESS NOTE SUBJECTIVE: An 87-year-old white female with altered mental status secondary to urosepsis, dehydration, poor nutrition. She remains on IV Unasyn, and we are going to transfer her over to oral medicines once her mind clears up and mentally she does better. Remains on IV Unasyn for now. OBJECTIVE: CARDIOVASCULAR: S1, S2. LUNGS: Clear. GI: Soft. HEMATOLOGY: Negative Homans. PSYCH: Pleasantly confused. PLAN: Continue with IV antibiotics metabolic encephalopathy clears up. Prognosis is guarded. MMODL / IJN: [id number] /
--- NOTE | 2022-04-18 09:37 | CDI ---
Documentation Clarification Form Date: 04/18/2022 8:51:09 AM From: Concepción Ceja Admit Date: 04/10/2022 2:03:00 PM Patient Name: Emely Whiting Visit Number: [id number] Discharge Date: 04/15/2022 6:30:00 PM ATTENTION: The Clinical Documentation Specialists (CDI) and [facility] Coding Staff appreciate your assistance in clarifying documentation. Please respond to the clarification below the line at the bottom and electronically sign. The CDI & [facility] Coding staff will review the response and follow-up if needed. Please note: Queries are made part of the Legal Health Record. If you have any questions, please contact the author of this message via ITS. Dr. Victor Hugo Zhong Per neuro consult 04/11 documents "Patient has been seen by Dr. Kelly on 03/09/2021 for AMS, which was felt to be related to septic encephalopathy, urosepsis. Please clarify if patient had sepsis due to UTI or was sepsis ruled out. Additional clarification regarding if patient had sepsis due to UTI or was sepsis ruled out is requested. History/Risk Factors: Recurrent UTI and present Proteus UTI, Clinical Indicators: WBC: 9.3 Lactic acid: Blood cultures: Negative Urine culture positive for Proteus Vitals signs: 98 F, 86 BPM, 18, 107/71, 98 RA Treatment: IV antibiotics ID Consult: Proteus UTI Antibiotics: Levaquin, Unasyn, Augmentin IV Bolus: In your professional opinion, please clarify if these findings signify one of the following conditions: [ ] Sepsis POA [ ] Sepsis ruled out [ ] Severe Sepsis with organ failure [ ] Septic Shock [ ] SIRS, without underlying infectious process [ ] Other, please specify [ ] Unable to determine SIRS Criteria: 2 or more of the following may indicate SIRS -Temperature < 96.8F (36C) or > 101.0F (38.3C) -Heart Rate > 90 bpm -Respiratory Rate > 20 breaths/min or PaCO2 < 32 mmHg -White Blood Cell Count > 12,000 or < 4,000 cells/mm3 or > 10% bands MTDD
--- NOTE | 2022-04-21 20:47 | PN ---
PROGRESS NOTE ADDENDUM: Sepsis, ruled out; systemic inflammatory response syndrome, ruled in. MMODL / IJN: [id number] /
== END 2022-04-15 18:30 | disposition home or self-care (01) | DRG 689 ==
LOC: EC 10:06 → 5NMEDONC 14:03
PROVIDERS: ADMIT Family Medicine; ATTEND Family Medicine
DX: N39.0 Urinary tract infection, site not specified (principal); E43 Unspecified severe protein-calorie malnutrition; G93.41 Metabolic encephalopathy; C79.51 Secondary malignant neoplasm of bone; Z68.1 Body mass index [BMI] 19.9 or less, adult; G91.2 (Idiopathic) normal pressure hydrocephalus; R47.01 Aphasia; Z16.11 Resistance to penicillins; Z16.23 Resistance to quinolones and fluoroquinolones; B96.4 Proteus (mirabilis) (morganii) as the cause of diseases classified elsewhere; Z85.3 Personal history of malignant neoplasm of breast; Z90.11 Acquired absence of right breast and nipple; Z80.3 Family history of malignant neoplasm of breast; Z92.3 Personal history of irradiation; K21.9 Gastro-esophageal reflux disease without esophagitis; R41.0 Disorientation, unspecified; H91.90 Unspecified hearing loss, unspecified ear; Z87.440 Personal history of urinary (tract) infections; F03.C0 Unspecified dementia, severe, without behavioral disturbance, psychotic disturbance, mood disturbance, and anxiety; I11.0 Hypertensive heart disease with heart failure; I25.10 Atherosclerotic heart disease of native coronary artery without angina pectoris; I50.9 Heart failure, unspecified; I49.3 Ventricular premature depolarization; J44.9 Chronic obstructive pulmonary disease, unspecified; Z74.01 Bed confinement status; Z79.82 Long term (current) use of aspirin; Z79.890 Hormone replacement therapy; Z79.899 Other long term (current) drug therapy; Z99.3 Dependence on wheelchair; Z71.3 Dietary counseling and surveillance
CPT/HCPCS: 36415; 70030; 70450; 70496; 70498; 70551; 71046; 80053; 81001; 84425; 84484; 85025; 85610; 85730; 87077; 87086; 87186; 93005; 94640; 94760; 95816; 96360; 96361; 99291

== ENCOUNTER 2022-05-25 14:52 | Inpatient (IN) | payer MEDICARE ==
--- NOTE | 2022-05-25 15:54 | ED ---
Female Urogenital HPI - General Chief complaint: Urogenital Stated complaint: UTI Time Seen by Provider: 05/25/22 14:59 Source: EMS Mode of arrival: EMS Limitations: no limitations - History of Present Illness Initial comments: Dictation was produced using [employer] dictation software. please excuse any grammatical, word or spelling errors. Chief Complaint: 87-year-old female presents emergency department for altered mental status History of Present Illness: Patient is a 7-year-old female she has multiple comorbidities. She currently is a resident at [facility]. Patient was witnessed to have signs of altered mental status by staff. 2 weeks ago she seen in the ER for UTI. Kurtz catheter was placed at at time. Daughter had difficulties having patient follow up with urology for Kurtz replacement. Patient denies any complaints at this time. It's unclear what patient's baseline mental status is. The ROS documented in this emergency department record has been reviewed and confirmed by me. Those systems with pertinent positive or negative responses have been documented in the HPI. All other systems are other negative and/or noncontributory. PHYSICAL EXAM: General Impression: Alert and oriented x3, not in acute distress HEENT: Normocephalic atraumatic, extra-ocular movements intact, pupils equal and reactive to light bilaterally, mucous membranes moist. Cardiovascular: Heart regular rate and rhythm Chest: Able to complete full sentences, no retractions, no tachypnea Abdomen: abdomen soft, non-tender, non-distended, no organomegaly Musculoskeletal: Pulses present and equal in all extremities, no peripheral edema Motor: no focal deficits noted Neurological: CN II-XII grossly intact, no focal motor or sensory deficits noted Skin: Intact with no visualized rashes Psych: Normal affect and mood ED course: 87-year-old well-appearing female with no complaints presents to the ER for altered mental status. Are within acceptable limits. Physical examination is benign. His unclear what patient's baseline mental status is. She does not appear to be confused. She is hard of hearing. Nursing notes and chart review was performed My EKG interpretation: Ventricular rate 95, sinus rhythm,. 161, QRS 79, QTC 49. No WI prolongation, no QTC prolongation, no ST or T-wave changes noted. EKG compared to 04/19/2022 showing no changes. Overall, this EKG is unremarkable Was pt. sent in by a medical professional or institution ([facility], [employer], urgent care, hospital, or intermediate...) When possible be specific @ -Assisted-living facility [facility] Did you speak to anyone other than the patient for history (EMS, parent, family, police, friend...)? What history was obtained from this source @ -No Did you review nursing and triage notes (agree or disagree)? Why? @ -I reviewed and agree with nursing and triage notes Were old charts reviewed (outside hosp., previous admission, EMS record, old EKG, old radiological studies, urgent care reports/EKG's, intermediate records)? Report findings @ -No old charts were reviewed Differential Diagnosis (chest pain, altered mental status, abdominal pain women, abdominal pain men, vaginal bleeding, musculoskeletal, weakness, fever, dyspnea, syncope, headache, dizziness, GI bleed, back pain, seizure, CVA, palpatations, mental health)? @ -Differential Altered Mental Status: Hypoglycemia, DKA, hypercapnia, ETOH, overdose, CO poisoning, trauma, myxedema coma, HTN encephalopathy, infection, encephalitis, psychosis, intercranial hemorrhage, hepatic encephalopathy, meningitis, CVA, this is not meant to be an all-inclusive list EKG interpreted by me (3pts min.). @ -See above X-rays interpreted by me (1pt min.). @ -None done CT interpreted by me (1pt min.). @ -None done U/S interpreted by me (1pt. min.). @ -None done What testing was considered but not performed or refused? (CT, X-rays, U/S, labs)? Why? @ -See above What meds were considered but not given or refused? Why? @ -See above Did you discuss the management of the patient with other professionals (professionals i.e. [facility], [employer] SERVICER, lab, RT, psych nurse, group social worker, massage therapist, teacher, admitting officer, case management director)? Give summary @ -See above Was smoking cessation discussed for >3mins.? @ -No Was critical care preformed (if so, how long)? @ -No Were there social determinants of health that impacted care today? How? (Homelessness, low income, unemployed, alcoholism, drug addiction, transportation, low edu. Level, literacy, decrease access to med. care, retirement, rehab)? @ -No Was there de-escalation of care discussed even if they declined (Discuss DNR or withdrawal of care, Hospice)? DNR status @ -No What co-morbidities impacted this encounter? (DM, HTN, Smoking, COPD, CAD, Cancer, CVA, ARF, Chemo, Hep., AIDS, mental health diagnosis, sleep apnea, morbid obesity)? @ -None Was patient admitted / discharged? Hospital course, mention meds given and route, prescriptions, significant lab abnormalities, going to OR and other pertinent info. @ -Laboratory evaluation obtained. CBC shows mild leukocytosis. Metabolic panel is unremarkable. Urinalysis shows greater than 182 white blood cells and 62 red blood cells. The sample for this urinalysis is from a brand new Kurtz catheter that was placed. Admitted to Dr. Shaffer after a discussion with him. patient given Levaquin Undiagnosed new problem with uncertain prognosis? @ -No Drug Therapy requiring intensive monitoring for toxicity (Heparin, Nitro, Insulin, Cardizem)? @ -No Were any procedures done? @ -No Diagnosis/symptom? Acute, or Chronic, or Acute on Chronic? Uncomplicated (without systemic symptoms) or Complicated (systemic symptoms)? @ -1. Acute complicated urinary tract infection Side effects of treatment? @ -No Exacerbation, Progression, or Severe Exacerbation? @ -No Poses a threat to life or bodily function? How? (Chest pain, [place], [place], pneumonia, PE, COPD, DKA, ARF, appy, cholecystitis, CVA, Diverticulitis, Homicidal, Suicidal, threat to staff... and all critical care pts) @ -Yes - Related Data Home Medications Medication Instructions Recorded Confirmed Levothyroxine Sodium [Synthroid] 50 mcg PO DAILY 04/01/17 05/25/22 Multivitamins, Thera [Multivitamin 1 tab PO DAILY 11/02/19 05/25/22 (formulary)] Omeprazole 40 mg PO DAILY 11/02/19 05/25/22 Ipratropium-Albuterol Nebulize 3 ml INHALATION RT-BID 01/06/21 05/25/22 [Duoneb 0.5 mg-3 mg/3 ml Soln] Acetaminophen [Tylenol] 325 mg PO DAILY PRN 05/26/21 05/25/22 Clotrimazole/Betameth Cream 1 applic TOPICAL BID 03/29/22 05/25/22 [Lotrisone] Ferrous Sulfate [Iron (65 MG 325 mg PO DAILY 03/29/22 05/25/22 Elemental)] Nystatin 100,000Unit/gm Cream 1 applic TOPICAL BID 03/29/22 05/25/22 [Mycostatin Cream] ALPRAZolam [Xanax] 0.25 mg PO BID 05/25/22 05/25/22 Lactose-Reduced Food [Ensure Plus 237 ml PO TID 05/25/22 05/25/22 High Protein] Sennosides [Senokot] 8.6 mg PO DAILY 05/25/22 05/25/22 atenoloL [Tenormin] 25 mg PO DAILY 05/25/22 05/25/22 Allergies Allergy/AdvReac Type Severity Reaction Status Date / Time cefuroxime Allergy Intermediate Hives Verified 05/25/22 16:24 Review of Systems ROS Statement: Those systems with pertinent positive or pertinent negative responses have been documented in the HPI. ROS Other: All systems not noted in ROS Statement are negative. 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 Past Anesthesia/Blood Transfusion Reactions: No Reported Reaction Past Psychological History: No Psychological Hx Reported Smoking Status: Never smoker Past Alcohol Use History: None Reported Past Drug Use History: None Reported - Past Family History Father Additional Family Medical History / Comment(s): heart disease. Mother Additional Family Medical History / Comment(s): heart disease. Sister(s) Family Medical History: Cancer Additional Family Medical History / Comment(s): 3 SISTERS WITH BREAST CA General Exam Limitations: no limitations Course Vital Signs 05/25/22 14:58 Temperature 98.7 F Pulse Rate 96 Respiratory 16 Rate Blood Pressure 96/66 O2 Sat by Pulse 95 Oximetry Medical Decision Making - Lab Data Result diagrams: 05/25/22 16:36 05/25/22 16:36 Lab Results 05/25/22 05/25/22 05/25/22 Range/Units 16:36 16:36 16:36 WBC 11.4 H (3.8-10.6) k/uL RBC 5.14 (3.80-5.40) m/uL Hgb 14.4 D (11.4-16.0) gm/dL Hct 46.1 H (34.0-46.0) % MCV 89.6 (80.0-100.0) fL MCH 28.0 (25.0-35.0) pg MCHC 31.3 (31.0-37.0) g/dL RDW 13.8 (11.5-15.5) % Plt Count 249 (150-450) k/uL MPV 7.6 Neutrophils % 79 % Lymphocytes % 12 % Monocytes % 4 % Eosinophils % 2 % Basophils % 1 % Neutrophils # 9.0 H (1.3-7.7) k/uL Lymphocytes # 1.4 (1.0-4.8) k/uL Monocytes # 0.5 (0-1.0) k/uL Eosinophils # 0.3 (0-0.7) k/uL Basophils # 0.2 (0-0.2) k/uL Sodium 145 (137-145) mmol/L Potassium 4.3 (3.5-5.1) mmol/L Chloride 113 H (98-107) mmol/L Carbon Dioxide 23 (22-30) mmol/L Anion Gap 9 mmol/L BUN 43 H (7-17) mg/dL Creatinine 0.77 (0.52-1.04) mg/dL Est GFR (CKD-EPI)AfAm 79 (>60 ml/min/1.73 sqM) Est GFR (CKD-EPI)NonAf 69 (>60 ml/min/1.73 sqM) Glucose 126 H (74-99) mg/dL Plasma Lactic Acid Teofilo (0.7-2.0) mmol/L Calcium 8.7 (8.4-10.2) mg/dL Total Bilirubin 0.5 (0.2-1.3) mg/dL AST 28 (14-36) U/L ALT 19 (4-34) U/L Alkaline Phosphatase 79 (38-126) U/L Total Protein 7.6 (6.3-8.2) g/dL Albumin 3.6 (3.5-5.0) g/dL Urine Color Yellow Urine Appearance Turbid H (Clear) Urine pH 8.0 (5.0-8.0) Ur Specific Rochelle 1.021 (1.001-1.035) Urine Protein 3+ H (Negative) Urine Glucose (UA) Negative (Negative) Urine Ketones Negative (Negative) Urine Blood Small H (Negative) Urine Nitrite Negative (Negative) Urine Bilirubin Negative (Negative) Urine Urobilinogen <2.0 (<2.0) mg/dL Ur Leukocyte Esterase Large H (Negative) Urine RBC 62 H (0-5) /hpf Urine WBC >182 H (0-5) /hpf Urine WBC Clumps Many H (None) /hpf Ur Squamous Epith Cells 3 (0-4) /hpf Triple Phos Crystals Occasional H (None) /hpf Urine Bacteria Many H (None) /hpf Urine Mucus Moderate H (None) /hpf 05/25/22 Range/Units 16:36 WBC (3.8-10.6) k/uL RBC (3.80-5.40) m/uL Hgb (11.4-16.0) gm/dL Hct (34.0-46.0) % MCV (80.0-100.0) fL MCH (25.0-35.0) pg MCHC (31.0-37.0) g/dL RDW (11.5-15.5) % Plt Count (150-450) k/uL MPV Neutrophils % % Lymphocytes % % Monocytes % % Eosinophils % % Basophils % % Neutrophils # (1.3-7.7) k/uL Lymphocytes # (1.0-4.8) k/uL Monocytes # (0-1.0) k/uL Eosinophils # (0-0.7) k/uL Basophils # (0-0.2) k/uL Sodium (137-145) mmol/L Potassium (3.5-5.1) mmol/L Chloride (98-107) mmol/L Carbon Dioxide (22-30) mmol/L Anion Gap mmol/L BUN (7-17) mg/dL Creatinine (0.52-1.04) mg/dL Est GFR (CKD-EPI)AfAm (>60 ml/min/1.73 sqM) Est GFR (CKD-EPI)NonAf (>60 ml/min/1.73 sqM) Glucose (74-99) mg/dL Plasma Lactic Acid Teofilo 1.7 (0.7-2.0) mmol/L Calcium (8.4-10.2) mg/dL Total Bilirubin (0.2-1.3) mg/dL AST (14-36) U/L ALT (4-34) U/L Alkaline Phosphatase (38-126) U/L Total Protein (6.3-8.2) g/dL Albumin (3.5-5.0) g/dL Urine Color Urine Appearance (Clear) Urine pH (5.0-8.0) Ur Specific Rochelle (1.001-1.035) Urine Protein (Negative) Urine Glucose (UA) (Negative) Urine Ketones (Negative) Urine Blood (Negative) Urine Nitrite (Negative) Urine Bilirubin (Negative) Urine Urobilinogen (<2.0) mg/dL Ur Leukocyte Esterase (Negative) Urine RBC (0-5) /hpf Urine WBC (0-5) /hpf Urine WBC Clumps (None) /hpf Ur Squamous Epith Cells (0-4) /hpf Triple Phos Crystals (None) /hpf Urine Bacteria (None) /hpf Urine Mucus (None) /hpf Disposition Clinical Impression: UTI (urinary tract infection) Disposition: ADMITTED IP TO THIS HOSP Condition: Fair Referrals: Victor Hugo Zhong MD [Primary Care Provider] - 1-2 days Decision Time: 19:42
[2022-05-25 16:58] LABS: Basophils # (A) 0.2 k/uL (0-0.2); Basophils % (A) 1 %; Eosinophils # (A) 0.3 k/uL (0-0.7); Eosinophils % (A) 2 %; HCT 46.1 % (34.0-46.0); Lymphocytes # (A) 1.4 k/uL (1.0-4.8); Lymphocytes % (A) 12 %; MCHC 31.3 g/dL (31.0-37.0); MCV 89.6 fL (80.0-100.0); Mean Platelet Volume 7.6; Monocytes # (A) 0.5 k/uL (0-1.0); Monocytes % (A) 4 %; Neutrophils % (A) 79 %; Platelet Count 249 k/uL (150-450); RBC 5.14 m/uL (3.80-5.40); RDW 13.8 % (11.5-15.5); WBC 11.4 k/uL (3.8-10.6)
[2022-05-25 17:15] LABS: Albumin 3.6 g/dL (3.5-5.0); Calcium 8.7 mg/dL (8.4-10.2); HGB 14.4 gm/dL (11.4-16.0); Total Bilirubin 0.5 mg/dL (0.2-1.3); Total Protein 7.6 g/dL (6.3-8.2)
[2022-05-25 17:23] LABS: Potassium 4.3 mmol/L (3.5-5.1)
[2022-05-25 18:50] LABS: Appearance,Urine Turbid (Clear); Bacteria,Urine Many /hpf; Bilirubin,Urine Negative (Negative); Blood,Urine Small (Negative); Color,Urine Yellow; Glucose,Urine (UA) Negative (Negative); Ketones,Urine Negative (Negative); Leukocyte Esterase,Urine Large (Negative); Mucus,Urine Moderate /hpf; Nitrite,Urine Negative (Negative); Protein,Urine 3+ (Negative); RBC,Urine 62 /hpf (0-5); Specific Gravity,Urine 1.021 (1.001-1.035); Squamous Epithelial Cell,Urine 3 /hpf (0-4); Triple Phosphate Crystal,Urine Occasional /hpf; Urobilinogen,Urine <2.0 mg/dL (<2.0); WBC,Urine >182 /hpf (0-5)
[2022-05-25] MEDS ORDERED: LEVOFLOXACIN 750MG-D5W PMX 750 MG in DEXTROSE/WATER 1 150ML.BAG IVPB STA (19:00)
[2022-05-25] MEDS ORDERED: NALOXONE 0.4 MG/ML 1 ML VIAL IV PRN (19:37)
[2022-05-25] MEDS ORDERED: ACETAMINOPHEN TAB 325 MG TAB PO PRN (19:37)
[2022-05-25] MEDS: SODIUM CHLORIDE 0.9% 1,000 ML IV SCH (20:14)
[2022-05-26] MEDS: AMPICILLIN-SULBACTAM 3 GM in SODIUM CHLORIDE 0.9% 100 ML IVPB SCH ×3 (09:52→23:50)
[2022-05-26] MEDS ORDERED: ALPRAZolam 0.25 MG TAB PO PRN (10:07)
[2022-05-26 10:20] VITALS: BMI 16.1
[2022-05-26] MEDS: FERROUS SULFATE 325 MG TAB PO SCH (10:24)
[2022-05-26] MEDS: LEVOTHYROXINE 50 MCG TAB PO SCH (10:24)
[2022-05-26] MEDS: SENNOSIDES 8.6 MG TAB PO SCH (10:24)
[2022-05-26] MEDS: MULTIVITAMINS, THERA 1 EACH TAB PO SCH (10:24)
--- NOTE | 2022-05-26 10:56 | P.HPPUL ---
History of Present Illness H&P Date: 05/26/22 Chief Complaint: Confusion -year-old female came into the hospital with confusion, altered mental status, patient is a resident of extended care facility, she was the senior emergency department 2 weeks ago with urinary tract infection was the place a Kurtz's catheter and eventually was discharged however family has issues and problem with swallowing of urology, patient noted by staff to be more confused and somnolent sending her for further evaluation not much data can be obtained from the patient, her labs are significant for WBC count of 11.4, CBC otherwise within normal limit, chemistry significant for a BUN of 43 creatinine 0.7, LFTs were normal, urine analysis turbid with +3 protein and large leukocyte esterase trace and many bacteria and many clumps of WBC, urine culture is pending, patient has been started on Unasyn and continued on her home medications on specific questioning denies any loss of consciousness have braces, denies any chest pain or radiation of pain denies any nausea vomiting diarrhea Review of Systems All systems: negative Past Medical History Past Medical History: Cancer, Heart Failure, COPD, Dementia, GERD/Reflux, Thyroid Disorder Additional Past Medical History / Comment(s): HIATAL HERNIA, metastatic breast ca, bone cancer(thoracic spine), 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 Past Anesthesia/Blood Transfusion Reactions: No Reported Reaction Past Psychological History: No Psychological Hx Reported Additional Psychological History / Comment(s): Pt resides at [facility] in [place]. She is non-ambulatory and needs assistance when eating per pt's daughter. Smoking Status: Unknown if ever smoked Past Alcohol Use History: None Reported Past Drug Use History: None Reported - Past Family History Father Additional Family Medical History / Comment(s): heart disease. Mother Additional Family Medical History / Comment(s): heart disease. Sister(s) Family Medical History: Cancer Additional Family Medical History / Comment(s): 3 SISTERS WITH BREAST CA Medications and Allergies Home Medications Medication Instructions Recorded Confirmed Type Levothyroxine Sodium [Synthroid] 50 mcg PO DAILY 04/01/17 05/25/22 History Multivitamins, Thera [Multivitamin 1 tab PO DAILY 11/02/19 05/25/22 History (formulary)] Omeprazole 40 mg PO DAILY 11/02/19 05/25/22 History Ipratropium-Albuterol Nebulize 3 ml INHALATION RT-BID 01/06/21 05/25/22 History [Duoneb 0.5 mg-3 mg/3 ml Soln] Acetaminophen [Tylenol] 325 mg PO DAILY PRN 05/26/21 05/25/22 History Clotrimazole/Betameth Cream 1 applic TOPICAL BID 03/29/22 05/25/22 History [Lotrisone] Ferrous Sulfate [Iron (65 MG 325 mg PO DAILY 03/29/22 05/25/22 History Elemental)] Nystatin 100,000Unit/gm Cream 1 applic TOPICAL BID 03/29/22 05/25/22 History [Mycostatin Cream] ALPRAZolam [Xanax] 0.25 mg PO BID 05/25/22 05/25/22 History Lactose-Reduced Food [Ensure Plus 237 ml PO TID 05/25/22 05/25/22 History High Protein] Sennosides [Senokot] 8.6 mg PO DAILY 05/25/22 05/25/22 History atenoloL [Tenormin] 25 mg PO DAILY 05/25/22 05/25/22 History Allergies Allergy/AdvReac Type Severity Reaction Status Date / Time cefuroxime Allergy Intermediate Hives Verified 05/25/22 16:24 Physical Examination Vital signs: Vital Signs Temp Pulse Resp BP Pulse Ox 98.7 F 96 16 96/66 95 05/25/22 14:58 05/25/22 14:58 05/25/22 14:58 05/25/22 14:58 05/25/22 14:58 General appearance: no acute distress, alert Eyes: nonicteric ENT: oropharynx dry Neck: supple Auscultation: Bilateral: clear Percussion: Bilateral: not dull Tactile fremitus: Bilateral: normal Cardiovascular: regular rate and rhythm Gastrointestinal: normoactive bowel sounds, soft, non-tender, non-distended Integumentary: normal Extremities: no edema Musculoskeletal: no deformities, ROM normal Gait: normal gait, normal posture normal mental status, non-focal exam, pupils equal and round, CN II-XII normal, motor strength normal and symmetric, unable to assess due to mental status mood appropriate, affect normal, anxious, depressed, tearful Results - Laboratory Findings CBC and BMP: 05/25/22 16:36 05/25/22 16:36 Abnormal lab findings: Abnormal Labs 05/25/22 05/25/22 05/25/22 16:36 16:36 16:36 WBC 11.4 H Hct 46.1 H Neutrophils # 9.0 H Chloride 113 H BUN 43 H Glucose 126 H Urine Appearance Turbid H Urine Protein 3+ H Urine Blood Small H Ur Leukocyte Esterase Large H Urine RBC 62 H Urine WBC >182 H Urine WBC Clumps Many H Triple Phos Crystals Occasional H Urine Bacteria Many H Urine Mucus Moderate H Assessment and Plan Assessment: Altered mental status related to sepsis Sepsis related to urinary tract infection Urinary tract infection COPD Chronic anemia Hypothyroidism Prick ulcer disease Plan: Broad-spectrum IV antibiotics can be changed to oral Rehydration encourage patient to take by mouth Resume home medicines including Synthroid PPI iron sulfate can resume beta haven but would put parameters, and change Xanax to as needed Further plan of care as per clinical response of the patient Time with Patient: Greater than 30
--- NOTE | 2022-05-26 11:34 | P.CONS ---
History of Present Illness - Reason for Consult Consult date: 05/26/22 UTI Requesting physician: Damian Valerio - Chief Complaint Mental status changes x one day - History of Present Illness Patient is a 87 year old female with a past medical history significant for metastatic breast cancer history of COPD dementia GERD and history of recurrent UTI and [facility] resident patient was sent to the ER yesterday afternoon for evaluation of mental status changes apparently symptom has been getting worse for a day or 2 before the patient was sent to the ER history of any fever or any chills, apparently the patient was recently admitted this facility and treated for a catheter associated UTI with urine culture positive for MRSA for the patient has received her antibiotic therapy and she did have a Kurtz catheter and she was supposed to follow-up with urology for replacement of the Kurtz catheter apparently that has not been done, patient of presentation hospital was afebrile she did have mildly elevated white count of 11.4 with a left shift kidney function has been normal liver enzymes are normal patient did have a positive UA with large leukocyte esterase more than 1 WBC patient did receive a dose of Levaquin in the ER patient was admitted to the hospital infectious disease was consulted for further management of antibiotic therapy. 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 Past Anesthesia/Blood Transfusion Reactions: No Reported Reaction Past Psychological History: No Psychological Hx Reported Additional Psychological History / Comment(s): Pt resides at [facility] in [place]. She is non-ambulatory and needs assistance when eating per pt's daughter. Smoking Status: Unknown if ever smoked Past Alcohol Use History: None Reported Past Drug Use History: None Reported - Past Family History Father Additional Family Medical History / Comment(s): heart disease. Mother Additional Family Medical History / Comment(s): heart disease. Sister(s) Family Medical History: Cancer Additional Family Medical History / Comment(s): 3 SISTERS WITH BREAST CA Medications and Allergies Home Medications Medication Instructions Recorded Confirmed Type Levothyroxine Sodium [Synthroid] 50 mcg PO DAILY 04/01/17 05/25/22 History Multivitamins, Thera [Multivitamin 1 tab PO DAILY 11/02/19 05/25/22 History (formulary)] Omeprazole 40 mg PO DAILY 11/02/19 05/25/22 History Ipratropium-Albuterol Nebulize 3 ml INHALATION RT-BID 01/06/21 05/25/22 History [Duoneb 0.5 mg-3 mg/3 ml Soln] Acetaminophen [Tylenol] 325 mg PO DAILY PRN 05/26/21 05/25/22 History Clotrimazole/Betameth Cream 1 applic TOPICAL BID 03/29/22 05/25/22 History [Lotrisone] Ferrous Sulfate [Iron (65 MG 325 mg PO DAILY 03/29/22 05/25/22 History Elemental)] Nystatin 100,000Unit/gm Cream 1 applic TOPICAL BID 03/29/22 05/25/22 History [Mycostatin Cream] ALPRAZolam [Xanax] 0.25 mg PO BID 05/25/22 05/25/22 History Lactose-Reduced Food [Ensure Plus 237 ml PO TID 05/25/22 05/25/22 History High Protein] Sennosides [Senokot] 8.6 mg PO DAILY 05/25/22 05/25/22 History atenoloL [Tenormin] 25 mg PO DAILY 05/25/22 05/25/22 History Allergies Allergy/AdvReac Type Severity Reaction Status Date / Time cefuroxime Allergy Intermediate Hives Verified 05/25/22 16:24 Physical Exam Vitals: Vital Signs Temp Pulse Pulse Resp BP BP Pulse Ox 05/26/22 07:13 92 17 96/67 97 05/26/22 01:15 97.6 F 92 15 94/50 97 05/25/22 22:40 98.1 F 92 18 102/69 99 05/25/22 22:01 100 18 116/62 95 02/24/23 14:58 98.7 F 96 16 96/66 95 Intake and Output 05/25/22 05/26/22 05/26/22 22:59 06:59 14:59 Output Total 425 Balance -425 Output: Urine 425 Other: Voiding Method Indwelling Catheter Weight 45.359 kg EGENERAL DESCRIPTION: Elderly female lying in bed, no distress. No tachypnea or accessory muscle of respiration use. HEENT: Shows Pallor , no scleral icterus. Oral mucous membrane is dry. NECK: Trachea central, no thyromegaly. LUNGS: Unlabored breathing. Clear to auscultation anteriorly. No wheeze or crackle. HEART: S1, S2, regular rate and rhythm. No loud murmur ABDOMEN: Soft, no tenderness , guarding or rigidity, no organomegaly EXTREMITIES: No edema of feet. SKIN: No rash, no masses palpable. NEUROLOGICAL: The patient is awake, alert, oriented x2, mood and affect normal. Results CBC & Chem 7: 05/27/22 05:55 05/27/22 05:55 Labs: Abnormal Lab Results - Last 24 Hours (Table) 05/25/22 05/25/22 05/25/22 Range/Units 16:36 16:36 16:36 WBC 11.4 H (3.8-10.6) k/uL Hct 46.1 H (34.0-46.0) % Neutrophils # 9.0 H (1.3-7.7) k/uL Chloride 113 H (98-107) mmol/L BUN 43 H (7-17) mg/dL Glucose 126 H (74-99) mg/dL Urine Appearance Turbid H (Clear) Urine Protein 3+ H (Negative) Urine Blood Small H (Negative) Ur Leukocyte Esterase Large H (Negative) Urine RBC 62 H (0-5) /hpf Urine WBC >182 H (0-5) /hpf Urine WBC Clumps Many H (None) /hpf Triple Phos Crystals Occasional H (None) /hpf Urine Bacteria Many H (None) /hpf Urine Mucus Moderate H (None) /hpf Microbiology - Last 24 Hours (Table) 05/25/22 16:36 Urine Culture - Preliminary Urine,Voided Assessment and Plan (1) UTI (urinary tract infection) Current Visit: Yes Status: Acute Code(s): N39.0 - URINARY TRACT INFECTION, SITE NOT SPECIFIED SNOMED Code(s): 23645547 Plan: 1patient is in the hospital with mental status changes which is likely multifactorial in this patient who did have a mildly elevated white count and a positive UA concerning for possible catheter associated UTI patient to have underlying dementia and is not a very good historian and started on a clear in the Kurtz catheter was changed last 2Foley catheter needs to be changed and obtain urine culture from the new Kurtz 3patient did have history of cefuroxime ALLERGY in 2018 however the patient has tolerated Unasyn and Augmentin since then without any problem 4we will start the patient Unasyn 3 g every 8 hours while waiting for the cultures to finalize We will follow on clinical condition and cultures to further adjust medication if needed Thank you for this consultation will follow this patient with you Time with Patient: Greater than 30
--- NOTE | 2022-05-26 11:58 | P.GSCN ---
History of Present Illness Consult date: 05/26/22 Reason for Consult: UTI, urinary retention Requesting physician: Wero Shaffer History of present illness: The patient is an 87-year-old white female recently hospitalized with a MRSA UTI. A Kurtz catheter was placed at that time for urinary retention, with 725 mL return. She was advised to follow up in our office but has not yet been seen. She was brought back to the ER after she was noted to be somnolent and show evidence of mental status changes. She has underlying dementia and is a vague historian. The patient was seen in consultation by Dr. Barker 1 year ago for gross hematuria and urinary retention. She had an E. coli UTI at that time. A CT urogram at that time was unremarkable, though visualization of the bladder was limited due to a prior right total hip arthroplasty. 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 Past Anesthesia/Blood Transfusion Reactions: No Reported Reaction Past Psychological History: No Psychological Hx Reported Additional Psychological History / Comment(s): Pt resides at [facility] in [place]. She is non-ambulatory and needs assistance when eating per pt's daughter. Smoking Status: Unknown if ever smoked Past Alcohol Use History: None Reported Past Drug Use History: None Reported - Past Family History Father Additional Family Medical History / Comment(s): heart disease. Mother Additional Family Medical History / Comment(s): heart disease. Sister(s) Family Medical History: Cancer Additional Family Medical History / Comment(s): 3 SISTERS WITH BREAST CA Medications and Allergies Home Medications Medication Instructions Recorded Confirmed Type Levothyroxine Sodium [Synthroid] 50 mcg PO DAILY 04/01/17 05/25/22 History Multivitamins, Thera [Multivitamin 1 tab PO DAILY 11/02/19 05/25/22 History (formulary)] Omeprazole 40 mg PO DAILY 11/02/19 05/25/22 History Ipratropium-Albuterol Nebulize 3 ml INHALATION RT-BID 01/06/21 05/25/22 History [Duoneb 0.5 mg-3 mg/3 ml Soln] Acetaminophen [Tylenol] 325 mg PO DAILY PRN 05/26/21 05/25/22 History Clotrimazole/Betameth Cream 1 applic TOPICAL BID 03/29/22 05/25/22 History [Lotrisone] Ferrous Sulfate [Iron (65 MG 325 mg PO DAILY 03/29/22 05/25/22 History Elemental)] Nystatin 100,000Unit/gm Cream 1 applic TOPICAL BID 03/29/22 05/25/22 History [Mycostatin Cream] ALPRAZolam [Xanax] 0.25 mg PO BID 05/25/22 05/25/22 History Lactose-Reduced Food [Ensure Plus 237 ml PO TID 05/25/22 05/25/22 History High Protein] Sennosides [Senokot] 8.6 mg PO DAILY 05/25/22 05/25/22 History atenoloL [Tenormin] 25 mg PO DAILY 05/25/22 05/25/22 History Allergies Allergy/AdvReac Type Severity Reaction Status Date / Time cefuroxime Allergy Intermediate Hives Verified 05/25/22 16:24 Surgical - Exam Vital Signs Temp Pulse Resp BP Pulse Ox 98.7 F 96 16 96/66 95 05/25/22 14:58 05/25/22 14:58 05/25/22 14:58 05/25/22 14:58 05/25/22 14:58 - General well developed, well nourished, no distress - Respiratory normal respiratory effort - Abdomen Soft, flat, no mass. Mild suprapubic tenderness, no guarding or rebound. Results - Labs 05/25/22 16:36 05/25/22 16:36 Abnormal Lab Results - Last 24 Hours (Table) 05/25/22 05/25/22 05/25/22 Range/Units 16:36 16:36 16:36 WBC 11.4 H (3.8-10.6) k/uL Hct 46.1 H (34.0-46.0) % Neutrophils # 9.0 H (1.3-7.7) k/uL Chloride 113 H (98-107) mmol/L BUN 43 H (7-17) mg/dL Glucose 126 H (74-99) mg/dL Urine Appearance Turbid H (Clear) Urine Protein 3+ H (Negative) Urine Blood Small H (Negative) Ur Leukocyte Esterase Large H (Negative) Urine RBC 62 H (0-5) /hpf Urine WBC >182 H (0-5) /hpf Urine WBC Clumps Many H (None) /hpf Triple Phos Crystals Occasional H (None) /hpf Urine Bacteria Many H (None) /hpf Urine Mucus Moderate H (None) /hpf Microbiology - Last 24 Hours (Table) 05/25/22 16:36 Urine Culture - Preliminary Urine,Voided Diabetes panel 05/25/22 Range/Units 16:36 Sodium 145 (137-145) mmol/L Potassium 4.3 (3.5-5.1) mmol/L Chloride 113 H (98-107) mmol/L Carbon Dioxide 23 (22-30) mmol/L BUN 43 H (7-17) mg/dL Creatinine 0.77 (0.52-1.04) mg/dL Glucose 126 H (74-99) mg/dL Calcium 8.7 (8.4-10.2) mg/dL AST 28 (14-36) U/L ALT 19 (4-34) U/L Alkaline Phosphatase 79 (38-126) U/L Total Protein 7.6 (6.3-8.2) g/dL Albumin 3.6 (3.5-5.0) g/dL Calcium panel 05/25/22 Range/Units 16:36 Calcium 8.7 (8.4-10.2) mg/dL Albumin 3.6 (3.5-5.0) g/dL Pituitary panel 05/25/22 Range/Units 16:36 Sodium 145 (137-145) mmol/L Potassium 4.3 (3.5-5.1) mmol/L Chloride 113 H (98-107) mmol/L Carbon Dioxide 23 (22-30) mmol/L BUN 43 H (7-17) mg/dL Creatinine 0.77 (0.52-1.04) mg/dL Glucose 126 H (74-99) mg/dL Calcium 8.7 (8.4-10.2) mg/dL Adrenal panel 05/25/22 Range/Units 16:36 Sodium 145 (137-145) mmol/L Potassium 4.3 (3.5-5.1) mmol/L Chloride 113 H (98-107) mmol/L Carbon Dioxide 23 (22-30) mmol/L BUN 43 H (7-17) mg/dL Creatinine 0.77 (0.52-1.04) mg/dL Glucose 126 H (74-99) mg/dL Calcium 8.7 (8.4-10.2) mg/dL Total Bilirubin 0.5 (0.2-1.3) mg/dL AST 28 (14-36) U/L ALT 19 (4-34) U/L Alkaline Phosphatase 79 (38-126) U/L Total Protein 7.6 (6.3-8.2) g/dL Albumin 3.6 (3.5-5.0) g/dL - Imaging CT scan - abdomen: report reviewed, image reviewed Assessment and Plan (1) UTI (urinary tract infection) Current Visit: Yes Status: Acute Code(s): N39.0 - URINARY TRACT INFECTION, SITE NOT SPECIFIED SNOMED Code(s): 67636276 (2) Retention of urine, unspecified Current Visit: Yes Status: Acute Code(s): R33.9 - RETENTION OF URINE, UNSP ECIFIED SNOMED Code(s): 244227139 Plan: The patient is currently receiving Unasyn, pending the urine culture result. The Kurtz catheter is draining urine which is slightly cloudy in appearance. The Kurtz catheter will be removed tomorrow for a voiding trial, though I expect she will empty her bladder incompletely and require Kurtz catheter replacement. Time with Patient: Greater than 30
[2022-05-26] MEDS ORDERED: LACTOSE REDUCED FOOD PO SCH (16:00)
[2022-05-26 19:50] LABS: Appearance,Urine Turbid (Clear); Bacteria,Urine Occasional /hpf; Bilirubin,Urine Negative (Negative); Blood,Urine Small (Negative); Color,Urine Yellow; Glucose,Urine (UA) Negative (Negative); Ketones,Urine Negative (Negative); Leukocyte Esterase,Urine Large (Negative); Mucus,Urine Occasional /hpf; Nitrite,Urine Negative (Negative); PH, Urine 6.5 (5.0-8.0); Protein,Urine 2+ (Negative); RBC,Urine 27 /hpf (0-5); Specific Gravity,Urine 1.026 (1.001-1.035); Squamous Epithelial Cell,Urine 1 /hpf (0-4); Urobilinogen,Urine <2.0 mg/dL (<2.0); WBC,Urine >182 /hpf (0-5)
[2022-05-26] MEDS ORDERED: IPRATROPIUM-ALBUTEROL 3 ML NEB INHALATION SCH (20:00)
[2022-05-26] MEDS: SODIUM CHLORIDE 0.9% 1,000 ML IV SCH (20:22)
[2022-05-26] MEDS: CLOTRIMAZOLE/BETAMETH 1-0.05% CREAM 45 GM TUBE TOPICAL SCH (20:24)
[2022-05-26] MEDS: NYSTATIN 100,000UNIT/GM CREAM 30 GM TUBE TOPICAL SCH (20:24)
[2022-05-26] MEDS: ALBUTEROL HFA INHALER INHALATION SCH (21:47)
[2022-05-27] MEDS: LEVOTHYROXINE 50 MCG TAB PO SCH (06:26)
[2022-05-27] MEDS: PANTOPRAZOLE 40 MG TABLET PO SCH (06:26)
[2022-05-27] MEDS: atenoloL 25 MG TAB PO SCH (07:52)
[2022-05-27] MEDS: CLOTRIMAZOLE/BETAMETH 1-0.05% CREAM 45 GM TUBE TOPICAL SCH ×2 (07:59→21:23)
[2022-05-27] MEDS: AMPICILLIN-SULBACTAM 3 GM in SODIUM CHLORIDE 0.9% 100 ML IVPB SCH ×3 (07:59→23:44)
[2022-05-27] MEDS: NYSTATIN 100,000UNIT/GM CREAM 30 GM TUBE TOPICAL SCH ×2 (07:59→21:23)
[2022-05-27] MEDS: MULTIVITAMINS, THERA 1 EACH TAB PO SCH (07:59)
[2022-05-27] MEDS: SENNOSIDES 8.6 MG TAB PO SCH (07:59)
[2022-05-27] MEDS: FERROUS SULFATE 325 MG TAB PO SCH (07:59)
[2022-05-27] MEDS: ALBUTEROL HFA INHALER INHALATION SCH ×2 (09:22→20:05)
--- NOTE | 2022-05-27 09:41 | P.PN ---
Subjective Progress Note Date: 05/27/22 Principal diagnosis: Altered mental status related to sepsis Sepsis related to urinary tract infection Urinary tract infection COPD Chronic anemia Hypothyroidism Peptic ulcer disease 05/27/2022, patient seen and evaluated examined labs reviewed medications reviewed, patient remains afebrile mental status slightly improved, oxygen saturation 97%, blood pressure slowly improving but remains on the low side however map better of 71 blood pressure 93/61 and urine culture results are still pending 87 year-old female came into the hospital with confusion, altered mental status, patient is a resident of [facility] care facility, she was the senior emergency department 2 weeks ago with urinary tract infection was the place a Kurtz's catheter and eventually was discharged however family has issues and problem with swallowing of urology, patient noted by staff to be more confused and somnolent sending her for further evaluation not much data can be obtained from the patient, her labs are significant for WBC count of 11.4, CBC otherwise within normal limit, chemistry significant for a BUN of 43 creatinine 0.7, LFTs were normal, urine analysis turbid with +3 protein and large leukocyte esterase trace and many bacteria and many clumps of WBC, urine culture is pending, patient has been started on Unasyn and continued on her home medications on specific questioning denies any loss of consciousness have braces, denies any chest pain or radiation of pain denies any nausea vomiting diarrhea Objective - Vital Signs Vital signs: Vital Signs Temp 98.3 F 05/27/22 07:04 Pulse 107 H 05/27/22 07:04 Resp 18 05/27/22 07:04 BP 93/61 05/27/22 07:04 Pulse Ox 97 05/27/22 09:24 FiO2 Intake & Output 05/26/22 05/27/22 05/27/22 18:59 06:59 18:59 Output Total 300 300 Balance -300 -300 Weight 45.359 kg Output: Urine 300 300 Uretheral (Kurtz) 300 Other: Voiding Method Indwelling Catheter Indwelling Catheter # Bowel Movements 2 1 - Exam General appearance: no acute distress, alert Eyes: nonicteric ENT: oropharynx dry Neck: supple Auscultation: Bilateral: clear Percussion: Bilateral: not dull Tactile fremitus: Bilateral: normal Cardiovascular: regular rate and rhythm Gastrointestinal: normoactive bowel sounds, soft, non-tender, non-distended Integumentary: normal Extremities: no edema Musculoskeletal: no deformities, ROM normal Gait: normal gait, normal posture normal mental status, non-focal exam, pupils equal and round, CN II-XII normal, motor strength normal and symmetric, more awake and alert compared to yesterday's exam - Labs CBC & Chem 7: 05/25/22 16:36 05/25/22 16:36 Labs: Abnormal Lab Results - Last 24 Hours (Table) 05/26/22 Range/Units 18:00 Urine Appearance Turbid H (Clear) Urine Protein 2+ H (Negative) Urine Blood Small H (Negative) Ur Leukocyte Esterase Large H (Negative) Urine RBC 27 H (0-5) /hpf Urine WBC >182 H (0-5) /hpf Urine WBC Clumps Many H (None) /hpf Urine Bacteria Occasional H (None) /hpf Urine Mucus Occasional H (None) /hpf Microbiology - Last 24 Hours (Table) 05/26/22 18:00 Urine Culture - Preliminary Urine,Voided Assessment and Plan Assessment: Altered mental status related to sepsis, slowly improving Sepsis related to urinary tract infection, remains on broad-spectrum antibiotic Urinary tract infection, as above COPD, not in exacerbation Chronic anemia, monitor observe Hypothyroidism, continue maintenance therapy with Synthroid Peptic ulcer disease Plan: Broad-spectrum IV antibiotics can be changed to oral Rehydration encourage patient to take by mouth Resume home medicines including Synthroid PPI iron sulfate can resume beta haven but would put parameters, and change Xanax to as needed Further plan of care as per clinical response of the patient Time with Patient: Greater than 30
[2022-05-27 09:59] LABS: HCT 32.9 % (37.2-46.3); HGB 10.1 g/dL (12.0-15.0); MCH 27.5 pg (27.0-32.0); MCHC 30.7 g/dL (32.0-37.0); MCV 89.6 fL (80.0-97.0); Mean Platelet Volume 9.9 fL (9.5-12.2); NRBC Per 100 WBC 0 /100 WBCS (0.0-0.0); Platelet Count 354 X 10*3/uL (140-440); RBC 3.67 X 10*6/uL (4.10-5.20); RDW 14.5 % (11.5-14.5); WBC 15.88 X 10*3/uL (4.50-10.00)
[2022-05-27 10:09] LABS: African American GFR (CKD) 93.7 (60.0-200.0); Albumin 3.2 g/dL (3.8-4.9); Albumin/Globulin Ratio 0.94 (1.60-3.17); Anion Gap 11.9 mmol/L (10.00-18.00); BUN/Creat Ratio 46.5 Ratio (12.00-20.00); Blood Urea Nitrogen 27.9 mg/dL (9.0-27.0); Calcium 8.9 mg/dL (8.7-10.3); Carbon Dioxide 20.1 mmol/L (20.0-27.5); Globulin 3.4 g/dL (1.6-3.3); Non-African American GFR(CKD) 80.8 (60.0-200.0); Potassium 3.6 mmol/L (3.5-5.5); Total Bilirubin 0.2 mg/dL (0.30-1.20); Total Protein 6.6 g/dL (6.2-8.2)
--- NOTE | 2022-05-27 12:16 | P.PN ---
Subjective Progress Note Date: 05/27/22 Principal diagnosis: Urinary tract infection Patient is 87-year-old female with multiple comorbidities including history of recurrent UTI chronic indwelling catheter for urinary retention presented to hospital mental status changes noticed to have a positive UA concerning for catheter associated UTI. On today's evaluation that is 05/27/2022, the patient denies having any fever or any chills, the patient is more awake and alert denies any chest pain shortness of cough no abdominal pain no diarrhea Objective - Vital Signs Vital signs: Vital Signs Temp 98.3 F 05/27/22 07:04 Pulse 107 H 05/27/22 07:04 Resp 20 05/27/22 08:30 BP 93/61 05/27/22 07:04 Pulse Ox 97 05/27/22 09:24 FiO2 Intake & Output 05/26/22 05/27/22 05/27/22 18:59 06:59 18:59 Output Total 300 300 Balance -300 -300 Weight 45.359 kg Output: Urine 300 300 Uretheral (Kurtz) 300 Other: Voiding Method Indwelling Catheter Indwelling Catheter Indwelling Catheter # Bowel Movements 2 1 - Exam GENERAL DESCRIPTION: An elderly female lying in bed in no distress RESPIRATORY SYSTEM: Unlabored breathing , decreased breath sounds at bases HEART: S1 S2 regular rate and rhythm , ABDOMEN: Soft , no tenderness EXTREMITIES: No edema feet - Labs CBC & Chem 7: 05/27/22 05:55 05/27/22 05:55 Labs: Abnormal Lab Results - Last 24 Hours (Table) 05/26/22 05/27/22 05/27/22 Range/Units 18:00 05:55 05:55 WBC 15.88 H (4.50-10.00) X 10*3/uL RBC 3.67 L (4.10-5.20) X 10*6/uL Hgb 10.1 L (12.0-15.0) g/dL Hct 32.9 L (37.2-46.3) % MCHC 30.7 L (32.0-37.0) g/dL Chloride 112 H (96-109) mmol/L BUN 27.9 H (9.0-27.0) mg/dL BUN/Creatinine Ratio 46.50 H (12.00-20.00) Ratio Glucose 130 H (70-110) mg/dL Total Bilirubin 0.20 L (0.30-1.20) mg/dL Albumin 3.2 L (3.8-4.9) g/dL Globulin 3.4 H (1.6-3.3) g/dL Albumin/Globulin Ratio 0.94 L (1.60-3.17) g/dL Urine Appearance Turbid H (Clear) Urine Protein 2+ H (Negative) Urine Blood Small H (Negative) Ur Leukocyte Esterase Large H (Negative) Urine RBC 27 H (0-5) /hpf Urine WBC >182 H (0-5) /hpf Urine WBC Clumps Many H (None) /hpf Urine Bacteria Occasional H (None) /hpf Urine Mucus Occasional H (None) /hpf Microbiology - Last 24 Hours (Table) 05/26/22 18:00 Urine Culture - Preliminary Urine,Voided Assessment and Plan (1) UTI (urinary tract infection) Current Visit: Yes Status: Acute Code(s): N39.0 - URINARY TRACT INFECTION, SITE NOT SPECIFIED SNOMED Code(s): 65982348 Plan: 1patient is in the hospital with mental status changes which is likely multifactorial in this patient who did have a mildly elevated white count and a positive UA concerning for possible catheter associated UTI patient to have underlying dementia and is not a very good historian and started on a clear in the Kurtz catheter was changed last 2Foley catheter has been changed and urine culture from the new Kurtz, which are currently pending 3patient did have history of cefuroxime ALLERGY in 2018 however the patient has tolerated Unasyn and Augmentin since then without any problem 4patient to continue with Unasyn 3 g every 8 hours while waiting for the cultures to finalize Time with Patient: Less than 30
[2022-05-27 12:35] LABS: Basophils # (M) 0.32 X 10*3/uL (0.00-0.10); Eosinophils # (M) 0 X 10*3/uL (0.04-0.35); Lymphocytes # (M) 1.59 X 10*3/uL (0.90-5.00); Monocytes # (M) 0.64 X 10*3/uL (0.20-1.00); Myelocytes % 1 % (0-0); Neutrophils # (M) 13.18 X 10*3/uL (2.00-8.90); Neutrophils % (M) 83 %; RBC Morphology NORMAL
--- NOTE | 2022-05-27 13:21 | P.PN ---
Subjective Progress Note Date: 05/27/22 Principal diagnosis: UTI, urinary retention The Kurtz catheter was removed yesterday. Bladder scan showed 157 mL. The patient currently has a Kurtz catheter in place, draining clear yellow urine. She denies any pain at this time. Objective - Vital Signs Vital signs: Vital Signs Temp 98.3 F 05/27/22 07:04 Pulse 107 H 05/27/22 07:04 Resp 20 05/27/22 08:30 BP 93/61 05/27/22 07:04 Pulse Ox 97 05/27/22 09:24 FiO2 Intake & Output 05/26/22 05/27/22 05/27/22 18:59 06:59 18:59 Output Total 300 300 Balance -300 -300 Weight 45.359 kg Output: Urine 300 300 Uretheral (Kurtz) 300 Other: Voiding Method Indwelling Catheter Indwelling Catheter Indwelling Catheter # Bowel Movements 2 1 - Constitutional General appearance: Present: average body habitus, no acute distress - Labs CBC & Chem 7: 05/27/22 05:55 05/27/22 05:55 Labs: Abnormal Lab Results - Last 24 Hours (Table) 05/26/22 05/27/22 05/27/22 Range/Units 18:00 05:55 05:55 WBC 15.88 H (4.50-10.00) X 10*3/uL RBC 3.67 L (4.10-5.20) X 10*6/uL Hgb 10.1 L (12.0-15.0) g/dL Hct 32.9 L (37.2-46.3) % MCHC 30.7 L (32.0-37.0) g/dL Myelocytes % 1 H (0-0) % Neutrophils # (Manual) 13.18 H (2.00-8.90) X 10*3/uL Eosinophils # (Manual) 0 L (0.04-0.35) X 10*3/uL Basophils # (Manual) 0.32 H (0.00-0.10) X 10*3/uL Chloride 112 H (96-109) mmol/L BUN 27.9 H (9.0-27.0) mg/dL BUN/Creatinine Ratio 46.50 H (12.00-20.00) Ratio Glucose 130 H (70-110) mg/dL Total Bilirubin 0.20 L (0.30-1.20) mg/dL Albumin 3.2 L (3.8-4.9) g/dL Globulin 3.4 H (1.6-3.3) g/dL Albumin/Globulin Ratio 0.94 L (1.60-3.17) g/dL Urine Appearance Turbid H (Clear) Urine Protein 2+ H (Negative) Urine Blood Small H (Negative) Ur Leukocyte Esterase Large H (Negative) Urine RBC 27 H (0-5) /hpf Urine WBC >182 H (0-5) /hpf Urine WBC Clumps Many H (None) /hpf Urine Bacteria Occasional H (None) /hpf Urine Mucus Occasional H (None) /hpf Microbiology - Last 24 Hours (Table) 05/26/22 18:00 Urine Culture - Preliminary Urine,Voided Assessment and Plan (1) UTI (urinary tract infection) Current Visit: Yes Status: Acute Code(s): N39.0 - URINARY TRACT INFECTION, SITE NOT SPECIFIED SNOMED Code(s): 47836314 (2) Retention of urine, unspecified Current Visit: Yes Status: Acute Code(s): R33.9 - RETENTION OF URINE, UNSPECIFIED SNOMED Code(s): 166418817 Plan: The patient is currently receiving Unasyn, pending the urine culture result. The Kurtz catheter will be removed for another voiding trial, and should only be replaced if the postvoid residual exceeds 400 mL or the patient experiences disc omfort.
[2022-05-27] MEDS: SODIUM CHLORIDE 0.9% 1,000 ML IV SCH (16:18)
[2022-05-28] MEDS: LEVOTHYROXINE 50 MCG TAB PO SCH (06:35)
[2022-05-28] MEDS: PANTOPRAZOLE 40 MG TABLET PO SCH (06:35)
[2022-05-28] MEDS: ALBUTEROL HFA INHALER INHALATION SCH ×2 (08:36→22:34)
[2022-05-28 09:39] LABS: ALT 15 U/L (8-44); AST 16 U/L (13-35); African American GFR (CKD) 93.7 (60.0-200.0); Albumin 2.9 g/dL (3.8-4.9); Albumin/Globulin Ratio 0.85 (1.60-3.17); Alkaline Phosphatase 71 U/L (41-126); BUN/Creat Ratio 42.17 Ratio (12.00-20.00); Blood Urea Nitrogen 25.3 mg/dL (9.0-27.0); Calcium 8.3 mg/dL (8.7-10.3); Carbon Dioxide 20.6 mmol/L (20.0-27.5); Chloride 112 mmol/L (96-109); Globulin 3.4 g/dL (1.6-3.3); Glucose 119 mg/dL (70-110); HCT 32.1 % (37.2-46.3); HGB 10.2 g/dL (12.0-15.0); MCH 28.3 pg (27.0-32.0); MCHC 31.8 g/dL (32.0-37.0); MCV 89.2 fL (80.0-97.0); Mean Platelet Volume 9.9 fL (9.5-12.2); NRBC Per 100 WBC 0 /100 WBCS (0.0-0.0); Non-African American GFR(CKD) 80.8 (60.0-200.0); Platelet Count 352 X 10*3/uL (140-440); Potassium 3.3 mmol/L (3.5-5.5); RDW 14.5 % (11.5-14.5); Sodium 143 mmol/L (135-145); Total Bilirubin <0.15 mg/dL (0.30-1.20); Total Protein 6.3 g/dL (6.2-8.2); WBC 15.42 X 10*3/uL (4.50-10.00)
[2022-05-28] MEDS: SENNOSIDES 8.6 MG TAB PO SCH (09:58)
[2022-05-28] MEDS: FERROUS SULFATE 325 MG TAB PO SCH (09:58)
[2022-05-28] MEDS: atenoloL 25 MG TAB PO SCH (09:58)
[2022-05-28] MEDS: AMPICILLIN-SULBACTAM 3 GM in SODIUM CHLORIDE 0.9% 100 ML IVPB SCH ×2 (09:58→15:56)
[2022-05-28] MEDS: MULTIVITAMINS, THERA 1 EACH TAB PO SCH (09:58)
[2022-05-28] MEDS: NYSTATIN 100,000UNIT/GM CREAM 30 GM TUBE TOPICAL SCH ×2 (09:59→20:56)
[2022-05-28] MEDS: CLOTRIMAZOLE/BETAMETH 1-0.05% CREAM 45 GM TUBE TOPICAL SCH ×2 (09:59→20:56)
--- NOTE | 2022-05-28 10:16 | P.PN ---
Subjective Progress Note Date: 05/28/22 The patient is an 87-year-old white female recently hospitalized with a MRSA UTI. A Kurtz catheter was placed at that time for urinary retention, with 725 mL return. She was advised to follow up in our office but has not yet been seen. She was brought back to the ER after she was noted to be somnolent and show evidence of mental status changes. She has underlying dementia and is a vague historian. The patient was seen in consultation by Dr. Barker 1 year ago for gross hematuria and urinary retention. She had an E. coli UTI at that time. A CT urogram at that time was unremarkable, though visualization of the bladder was limited due to a prior right total hip arthroplasty. 05/26 The patient is currently receiving Unasyn, pending the urine culture result. The Kurtz catheter is draining urine which is slightly cloudy in appearance. The Kurtz catheter will be removed tomorrow for a voiding trial, though I expect she will empty her bladder incompletely and require Kurtz catheter replacement. 05/27 The Kurtz catheter was removed yesterday. Bladder scan showed 157 mL. The patient currently has a Kurtz catheter in place, draining clear yellow urine. She denies any pain at this time. The patient is currently receiving Unasyn, pending the urine culture result. The Kurtz catheter will be removed for another voiding trial, and should only be replaced if the postvoid residual exceeds 400 mL or the patient experiences discomfort. Objective - Vital Signs Vital signs: Vital Signs Temp 97.6 F 05/28/22 07:12 Pulse 95 05/28/22 07:12 Resp 18 05/28/22 07:12 BP 90/58 05/28/22 07:12 Pulse Ox 98 05/28/22 07:12 FiO2 Intake & Output 05/27/22 05/28/22 05/28/22 18:59 06:59 18:59 Intake Total 900 Balance 900 Intake: Oral 900 Other: Voiding Method Indwelling Catheter Diaper Diaper Incontinent Incontinent # Voids 3 1 # Bowel Movements 1 3 - Exam General: Well developed, well nourished. No acute distress. HEENT: Head is atraumatic, normocephalic. Lungs: Respirations even and nonlabored. On RA Abdomen/GI: Soft. No guarding, rigidity, or abdominal tenderness. : + suprapubic tenderness. Brief in place. Skin: Warm and dry - Labs CBC & Chem 7: 05/28/22 05:26 05/28/22 05:26 Labs: Abnormal Lab Results - Last 24 Hours (Table) 05/27/22 05/27/22 05/28/22 Range/Units 05:55 05:55 05:26 WBC 15.42 H (4.50-10.00) X 10*3/uL RBC 3.60 L (4.10-5.20) X 10*6/uL Hgb 10.2 L (12.0-15.0) g/dL Hct 32.1 L (37.2-46.3) % MCHC 31.8 L (32.0-37.0) g/dL Myelocytes % 1 H (0-0) % Neutrophils # (Manual) 13.18 H (2.00-8.90) X 10*3/uL Eosinophils # (Manual) 0 L (0.04-0.35) X 10*3/uL Basophils # (Manual) 0.32 H (0.00-0.10) X 10*3/uL Potassium (3.5-5.5) mmol/L Chloride 112 H (96-109) mmol/L BUN 27.9 H (9.0-27.0) mg/dL BUN/Creatinine Ratio 46.50 H (12.00-20.00) Ratio Glucose 130 H (70-110) mg/dL Calcium (8.7-10.3) mg/dL Total Bilirubin 0.20 L (0.30-1.20) mg/dL Albumin 3.2 L (3.8-4.9) g/dL Globulin 3.4 H (1.6-3.3) g/dL Albumin/Globulin Ratio 0.94 L (1.60-3.17) g/dL 05/28/22 Range/Units 05:26 WBC (4.50-10.00) X 10*3/uL RBC (4.10-5.20) X 10*6/uL Hgb (12.0-15.0) g/dL Hct (37.2-46.3) % MCHC (32.0-37.0) g/dL Myelocytes % (0-0) % Neutrophils # (Manual) (2.00-8.90) X 10*3/uL Eosinophils # (Manual) (0.04-0.35) X 10*3/uL Basophils # (Manual) (0.00-0.10) X 10*3/uL Potassium 3.3 L (3.5-5.5) mmol/L Chloride 112 H (96-109) mmol/L BUN (9.0-27.0) mg/dL BUN/Creatinine Ratio 42.17 H (12.00-20.00) Ratio Glucose 119 H (70-110) mg/dL Calcium 8.3 L (8.7-10.3) mg/dL Total Bilirubin <0.15 L (0.30-1.20) mg/dL Albumin 2.9 L (3.8-4.9) g/dL Globulin 3.4 H (1.6-3.3) g/dL Albumin/Globulin Ratio 0.85 L (1.60-3.17) g/dL Microbiology - Last 24 Hours (Table) 05/25/22 16:36 Urine Culture - Preliminary Urine,Voided Gram Neg Bacilli Assessment and Plan Assessment: The patient is resting in bed and appears comfortable. The patient is hard of hearing and is confused. She had a low-grade temp of 99.7F early this morning. She has been tachycardic and hypotensive. Her Kurtz catheter was discontinued yesterday. She is incontinent and is wearing a brief. The Kurtz catheter would only be replaced if thePVR remains > 400 mL or the patient is uncomfortable. Preliminary urine culture growing gram-negative bacilli. (1) UTI (urinary tract infection) Current Visit: Yes Status: Acute Code(s): N39.0 - URINARY TRACT INFECTION, SITE NOT SPECIFIED SNOMED Code(s): 65504917 (2) Retention of urine, unspecified Current Visit: Yes Status: Acute Code(s): R33.9 - RETENTION OF URINE, UNSPECIFIED SNOMED Code(s): 115171943 Plan: - Antibiotics per IDs recommendations - Check PVR Impression and plan of care have been directed as dictated by the signing physician. Meghan Markham nurse practitioner acting as scribe for signing physician. Meghan Markham [facility] Palliative Care/Urology [facility] [id number] Email: [email or web address] I personally performed and participated in the history, physical, the decision making, I agree with the assessment and plan of IRRIGATION WORKER
[2022-05-28 10:29] LABS: Basophils # (M) 0.15 X 10*3/uL (0.00-0.10); Eosinophils # (M) 0.31 X 10*3/uL (0.04-0.35); Metamyelocytes % 1 % (0-0); Monocytes # (M) 0.46 X 10*3/uL (0.20-1.00); Myelocytes % 2 % (0-0); Neutrophils # (M) 12.34 X 10*3/uL (2.00-8.90); Neutrophils % (M) 80 %; RBC Morphology NORMAL
--- NOTE | 2022-05-28 12:43 | P.PN ---
Subjective Progress Note Date: 05/28/22 Principal diagnosis: Urinary tract infection Patient is 87-year-old female with multiple comorbidities including history of recurrent UTI chronic indwelling catheter for urinary retention presented to hospital mental status changes noticed to have a positive UA concerning for catheter associated UTI. On today's evaluation that is 05/28/2022, the patient remains to be afebrile, the patient denies any chest pain shortness of breath or cough no nausea no vomiting no abdominal pain or diarrhea Objective - Vital Signs Vital signs: Vital Signs Temp 97.6 F 05/28/22 07:12 Pulse 95 05/28/22 07:12 Resp 18 05/28/22 07:12 BP 90/58 05/28/22 07:12 Pulse Ox 98 05/28/22 07:12 FiO2 Intake & Output 05/27/22 05/28/22 05/28/22 18:59 06:59 18:59 Intake Total 900 Balance 900 Intake: Oral 900 Other: Voiding Method Indwelling Catheter Diaper Diaper Incontinent Incontinent # Voids 3 1 # Bowel Movements 1 3 - Exam GENERAL DESCRIPTION: An elderly female lying in bed in no distress RESPIRATORY SYSTEM: Unlabored breathing , decreased breath sounds at bases HEART: S1 S2 regular rate and rhythm , ABDOMEN: Soft , no tenderness EXTREMITIES: No edema feet - Labs CBC & Chem 7: 05/28/22 05:26 05/28/22 05:26 Labs: Abnormal Lab Results - Last 24 Hours (Table) 05/27/22 05/27/22 05/28/22 Range/Units 05:55 05:55 05:26 WBC 15.42 H (4.50-10.00) X 10*3/uL RBC 3.60 L (4.10-5.20) X 10*6/uL Hgb 10.2 L (12.0-15.0) g/dL Hct 32.1 L (37.2-46.3) % MCHC 31.8 L (32.0-37.0) g/dL Myelocytes % 1 H (0-0) % Neutrophils # (Manual) 13.18 H (2.00-8.90) X 10*3/uL Eosinophils # (Manual) 0 L (0.04-0.35) X 10*3/uL Basophils # (Manual) 0.32 H (0.00-0.10) X 10*3/uL Potassium (3.5-5.5) mmol/L Chloride 112 H (96-109) mmol/L BUN 27.9 H (9.0-27.0) mg/dL BUN/Creatinine Ratio 46.50 H (12.00-20.00) Ratio Glucose 130 H (70-110) mg/dL Calcium (8.7-10.3) mg/dL Total Bilirubin 0.20 L (0.30-1.20) mg/dL Albumin 3.2 L (3.8-4.9) g/dL Globulin 3.4 H (1.6-3.3) g/dL Albumin/Globulin Ratio 0.94 L (1.60-3.17) g/dL 05/28/22 Range/Units 05:26 WBC (4.50-10.00) X 10*3/uL RBC (4.10-5.20) X 10*6/uL Hgb (12.0-15.0) g/dL Hct (37.2-46.3) % MCHC (32.0-37.0) g/dL Myelocytes % (0-0) % Neutrophils # (Manual) (2.00-8.90) X 10*3/uL Eosinophils # (Manual) (0.04-0.35) X 10*3/uL Basophils # (Manual) (0.00-0.10) X 10*3/uL Potassium 3.3 L (3.5-5.5) mmol/L Chloride 112 H (96-109) mmol/L BUN (9.0-27.0) mg/dL BUN/Creatinine Ratio 42.17 H (12.00-20.00) Ratio Glucose 119 H (70-110) mg/dL Calcium 8.3 L (8.7-10.3) mg/dL Total Bilirubin <0.15 L (0.30-1.20) mg/dL Albumin 2.9 L (3.8-4.9) g/dL Globulin 3.4 H (1.6-3.3) g/dL Albumin/Globulin Ratio 0.85 L (1.60-3.17) g/dL Microbiology - Last 24 Hours (Table) 05/25/22 16:36 Urine Culture - Preliminary Urine,Voided Gram Neg Bacilli Assessment and Plan (1) UTI (urinary tract infection) Current Visit: Yes Status: Acute Code(s): N39.0 - URINARY TRACT INFECTION, SITE NOT SPECIFIED SNOMED Code(s): 27078984 Plan: 1patient is in the hospital with mental status changes which is likely mul tifactorial in this patient who did have a mildly elevated white count and a positive UA concerning for possible catheter associated UTI patient to have underlying dementia and is not a very good historian and started on a clear in the Kurtz catheter was changed last 2Foley catheter has been changed and urine culture from the new Kurtz, which are currently pending 3patient did have history of cefuroxime ALLERGY in 2018 however the patient has tolerated Unasyn and Augmentin since then without any problem 4patient seemed to have show some clinical improvement and urine cultures currently showing gram-negative with ID sensitivities pending, patient to continue with Unasyn 3 g every 8 hours while waiting for the cultures to finalize Time with Patient: Less than 30
--- NOTE | 2022-05-28 15:00 | CDI ---
Documentation Clarification Form Date: 05/28/2022 From: Toyin Guthrie Phone: [phone] Admit Date: 05/25/2022 7:37:00 PM Patient Name: Emely Whiting Visit Number: [id number] ATTENTION: The Clinical Documentation Specialists (CDI) and [facility] Coding Staff appreciate your assistance in clarifying documentation. Please respond to the clarification below the line at the bottom and electronically sign. The CDI & [facility] Coding staff will review the response and follow-up if needed. Please note: Queries are made part of the Legal Health Record. If you have any questions, please contact the author of this message via ITS. Dr. Zhong The Registered Dietitian assessment on 05/26 indicates this patient meets criteria for severe malnutrition. Based on this information and the findings below, is there an additional diagnosis that is clinically appropriate for this patient? History/Risk Factors: 87yo with a h/o CHF, COPD, dementia, metastatic breast CA, bone CA Clinical Indicators: RD Consult Assessment: poor appetite, stage II pressure injury to coccyx, pt appears underweight. Severe malnutrition likely weight loss associated w/ appetite/caloric decline in advanced age. Severe depletion on muscle and fat. severe wasting in temporalis muscle and buccal fat pads. Current BMI: 16.1 Nutrition intake: poor, 0-25% of meals consumed Treatment: Supplements: Ensure Plus TID, general/healthful diet Lab monitoring Is there an additional diagnosis that is clinically appropriate for this patient? [ ] Moderate Protein-Calorie Malnutrition [ ] Severe Protein-Calorie Malnutrition [ ] No additional diagnosis/Not clinically significant [ ] Other condition, please specify [ ] Unable to Determine (Template Last Revised: May 2020) MTDD
--- NOTE | 2022-05-28 15:00 | CDI ---
Documentation Clarification Form Date: 05/28/2022 From: Toyin Guthrie Phone: [phone] Admit Date: 05/25/2022 7:37:00 PM Patient Name: Emely Whiting Visit Number: [id number] ATTENTION: The Clinical Documentation Specialists (CDI) and [facility] Coding Staff appreciate your assistance in clarifying documentation. Please respond to the clarification below the line at the bottom and electronically sign. The CDI & [facility] Coding staff will review the response and follow-up if needed. Please note: Queries are made part of the Legal Health Record. If you have any questions, please contact the author of this message via ITS. Dr. Zhong Your patient has the documented symptom of Altered Mental Status in the ER record, H&P, ID consult and IM PN. Additional clarification regarding the etiology/cause of this symptom is requested. History/Risk Factors: 87yo with a history of UTI w/ chronic Kurtz catheter and dementia presented with altered mental status and a UTI. Clinical Indicators: H&P 05/26 noted, Altered mental status related to sepsis, Sepsis related to urinary tract infection ACCOUNTS RECEIVABLE ADMINISTRATORlean manufacturing specialist noted confusion, as well as lean manufacturing specialist on 05/26 Labs: WBC 11.4 UA 05/25 yellow, turbid urine, small blood, 3+ protein, many bacteria Treatment: Unasyn IV, monitoring Please clarify the etiology of the symptom of Altered Mental Status: [ ] Metabolic encephalopathy due to sepsis/UTI superimposed on dementia [ ] Worsening of dementia (if know, specify Type and if with/without Behavioral Disturbance) [ ] Other condition (please specify) [ ] Unable to determine (Template Last Revised: May 2020) MTDD
--- NOTE | 2022-05-28 15:06 | CDI ---
Documentation Clarification Form Date: 05/28/2022 From: Toyin Guthrie Phone: [phone] Admit Date: 05/25/2022 7:37:00 PM Patient Name: Emely Whiting Visit Number: [id number] ATTENTION: The Clinical Documentation Specialists (CDI) and [facility] Coding Staff appreciate your assistance in clarifying documentation. Please respond to the clarification below the line at the bottom and electronically sign. The CDI & [facility] Coding staff will review the response and follow-up if needed. Please note: Queries are made part of the Legal Health Record. If you have any questions, please contact the author of this message via ITS. Dr. Zhong A stage II pressure ulcer is documented by highway patrol officer and RD consult. Based on this information and the findings below, is there an additional diagnosis that is clinically appropriate for this patient? History/Risk Factors: 87yo presented w/ AMS and UTI w/ chronic Kurtz catheter. Pt has a BMI of 16.1 Clinical Indicators: Location: coccyx Wound description: pink granulation, 1cm long x 0.5cm wide, noted as a stage II Treatment: Zinc paste Consults: Is there an additional diagnosis that is clinically appropriate for this patient? [ ] Coccyx Pressure Ulcer Stage 1 [ ] Coccyx Pressure Ulcer Stage 2 [ ] Other condition, please specify [ ] Unable to determine Clinical Definitions: Stage 1 Pressure Ulcer: intact skin, non-blanching redness of local area Stage 2 Pressure Ulcer: Partial thickness, loss of dermis, pink wound bed Stage 3 Pressure Ulcer: Full thickness tissue loss Stage 4 Pressure Ulcer: Full thickness tissue loss with exposed bone, tendon, or muscle. Unstageable pressure ulcer: Full thickness tissue loss in which the base of the ulcer is covered by slough (yellow, pierson, aguilar, green or brown) and/or eschar (pierson, brown or black) in the wound bed. MTDD
--- NOTE | 2022-05-28 15:12 | CDI ---
Documentation Clarification Form Date: 05/28/2022 2:54:00 PM From: Toyin Guthrie Phone: [phone] Admit Date: 05/25/2022 7:37:00 PM Patient Name: Emely Whiting Visit Number: [id number] Discharge Date: ATTENTION: The Clinical Documentation Specialists (CDI) and [facility] Coding Staff appreciate your assistance in clarifying documentation. Please respond to the clarification below the line at the bottom and electronically sign. The CDI & [facility] Coding staff will review the response and follow-up if needed. Please note: Queries are made part of the Legal Health Record. If you have any questions, please contact the author of this message via ITS. Dr. Zhong UTI is documented multiple times in the medical record and patient has a chronic Kurtz catether. Additional clarification regarding the etiology of the UTI is requested. History/Risk Factors: Pt has a h/o urinary retention and had a Kurtz catheter placed 2 weeks ago. Clinical Indicators: ID consult 05/26, positive UA concerning for possible catheter associated UTI Urinalysis 05/25: yellow, turbid yellow, 3+ protein, small blood, large leukocyte esterase, 62 RBC, >182 WBC, many bacteria, moderate mucus Urine culture: Proteus mirabilis Treatment: Unasyn IV, Kurtz cathter exchanged Please clarify the etiology of the UTI, if known: [ ] Kurtz catheter [ ] UTI not related to catheter [ ] Other condition, please specify [ ] Unable to determine (Template Last Revised: May 2020) MTDD
--- NOTE | 2022-05-28 15:14 | CDI ---
Documentation Clarification Form Date: 05/28/2022 From: Toyin Guthrie Phone: [phone] Admit Date: 05/25/2022 7:37:00 PM Patient Name: Emely Whiting Visit Number: [id number] ATTENTION: The Clinical Documentation Specialists (CDI) and [facility] Coding Staff appreciate your assistance in clarifying documentation. Please respond to the clarification below the line at the bottom and electronically sign. The CDI & [facility] Coding staff will review the response and follow-up if needed. Please note: Queries are made part of the Legal Health Record. If you have any questions, please contact the author of this message via ITS. Dr. Zhong A stage II pressure ulcer is documented by computer technical support specialist and RD consult. Based on this information and the findings below, is there an additional diagnosis that is clinically appropriate for this patient? History/Risk Factors: 87yo presented w/ AMS and UTI w/ chronic Kurtz catheter. Pt has a BMI of 16.1 Clinical Indicators: Location: coccyx Wound description: pink granulation, 1cm long x 0.5cm wide, noted as a stage II Treatment: Zinc paste Consults: Is there an additional diagnosis that is clinically appropriate for this patient? [ ] Coccyx Pressure Ulcer Stage 1 [ ] Coccyx Pressure Ulcer Stage 2 [ ] Other condition, please specify [ ] Unable to determine Clinical Definitions: Stage 1 Pressure Ulcer: intact skin, non-blanching redness of local area Stage 2 Pressure Ulcer: Partial thickness, loss of dermis, pink wound bed Stage 3 Pressure Ulcer: Full thickness tissue loss Stage 4 Pressure Ulcer: Full thickness tissue loss with exposed bone, tendon, or muscle. Unstageable pressure ulcer: Full thickness tissue loss in which the base of the ulcer is covered by slough (yellow, pierson, aguilar, green or brown) and/or eschar (pierson, brown or black) in the wound bed. MTDD
[2022-05-28] MEDS: SODIUM CHLORIDE 0.9% 1,000 ML IV SCH (20:55)
[2022-05-29] MEDS: AMPICILLIN-SULBACTAM 3 GM in SODIUM CHLORIDE 0.9% 100 ML IVPB SCH ×4 (00:06→23:42)
[2022-05-29] MEDS: PANTOPRAZOLE 40 MG TABLET PO SCH (06:23)
[2022-05-29] MEDS: LEVOTHYROXINE 50 MCG TAB PO SCH (06:23)
[2022-05-29] MEDS: MULTIVITAMINS, THERA 1 EACH TAB PO SCH (08:37)
[2022-05-29] MEDS: SENNOSIDES 8.6 MG TAB PO SCH (08:37)
[2022-05-29] MEDS: FERROUS SULFATE 325 MG TAB PO SCH (08:37)
[2022-05-29] MEDS: atenoloL 25 MG TAB PO SCH (08:37)
[2022-05-29] MEDS: CLOTRIMAZOLE/BETAMETH 1-0.05% CREAM 45 GM TUBE TOPICAL SCH ×2 (08:38→20:52)
[2022-05-29] MEDS: NYSTATIN 100,000UNIT/GM CREAM 30 GM TUBE TOPICAL SCH ×2 (08:38→20:52)
[2022-05-29] MEDS: ALBUTEROL HFA INHALER INHALATION SCH ×2 (08:41→17:56)
--- NOTE | 2022-05-29 09:41 | P.PN ---
Subjective Progress Note Date: 05/29/22 The patient is an 87-year-old white female recently hospitalized with a MRSA UTI. A Kurtz catheter was placed at that time for urinary retention, with 725 mL return. She was advised to follow up in our office but has not yet been seen. She was brought back to the ER after she was noted to be somnolent and show evidence of mental status changes. She has underlying dementia and is a vague historian. The patient was seen in consultation by Dr. Barker 1 year ago for gross hematuria and urinary retention. She had an E. coli UTI at that time. A CT urogram at that time was unremarkable, though visualization of the bladder was limited due to a prior right total hip arthroplasty. 05/26 The patient is currently receiving Unasyn, pending the urine culture result. The Kurtz catheter is draining urine which is slightly cloudy in appearance. The Kurtz catheter will be removed tomorrow for a voiding trial, though I expect she will empty her bladder incompletely and require Kurtz catheter replacement. 05/27 The Kurtz catheter was removed yesterday. Bladder scan showed 157 mL. The patient currently has a Kurtz catheter in place, draining clear yellow urine. She denies any pain at this time. The patient is currently receiving Unasyn, pending the urine culture result. The Kurtz catheter will be removed for another voiding trial, and should only be replaced if the postvoid residual exceeds 400 mL or the patient experiences discomfort. 05/18 The patient is resting in bed and appears comfortable. The patient is hard of hearing and is confused. She had a low-grade temp of 99.7F early this morning. She has been tachycardic and hypotensive. Her Kurtz catheter was discontinued yesterday. She is incontinent and is wearing a brief. The Kurtz catheter would only be replaced if the PVR remains > 400 mL or the patient is uncomfortable. Preliminary urine culture growing gram-negative bacilli. Objective - Vital Signs Vital signs: Vital Signs Temp 98.1 F 05/29/22 08:00 Pulse 91 05/29/22 08:00 Resp 16 05/29/22 08:00 BP 99/62 05/29/22 08:00 Pulse Ox 99 05/29/22 08:00 FiO2 Intake & Output 05/28/22 05/29/22 05/29/22 18:59 06:59 18:59 Intake Total 720 680 Output Total 376 Balance 720 304 Intake: Intake, IV Titration 360 Amount Ampicillin-Sulbactam 3 gm 100 In Sodium Chloride 0.9% 100 ml @ 200 mls/hr IVPB Q8HR [facility] Rx#:[id number] Sodium Chloride 0.9% 1, 260 000 ml @ 20 mls/hr IV . Q24H [facility] Rx#:[id number] Oral 720 320 Output: Urine 375 Straight 375 Stool 1 Other: Voiding Method Diaper Diaper Incontinent # Voids 1 # Bowel Movements 1 1 - Exam General: Well developed, well nourished. No acute distress. HEENT: Head is atraumatic, normocephalic. Lungs: Respirations even and nonlabored. On RA Abdomen/GI: Soft. No guarding, rigidity, or abdominal tenderness. : + suprapubic tenderness. Brief in place. Skin: Warm and dry - Labs CBC & Chem 7: 05/28/22 05:26 05/28/22 05:26 Labs: Abnormal Lab Results - Last 24 Hours (Table) 05/28/22 05/28/22 Range/Units 05:26 05:26 WBC 15.42 H (4.50-10.00) X 10*3/uL RBC 3.60 L (4.10-5.20) X 10*6/uL Hgb 10.2 L (12.0-15.0) g/dL Hct 32.1 L (37.2-46.3) % MCHC 31.8 L (32.0-37.0) g/dL Metamyelocytes % 1 H (0-0) % Myelocytes % 2 H (0-0) % Neutrophils # (Manual) 12.34 H (2.00-8.90) X 10*3/uL Basophils # (Manual) 0.15 H (0.00-0.10) X 10*3/uL Potassium 3.3 L (3.5-5.5) mmol/L Chloride 112 H (96-109) mmol/L BUN/Creatinine Ratio 42.17 H (12.00-20.00) Ratio Glucose 119 H (70-110) mg/dL Calcium 8.3 L (8.7-10.3) mg/dL Total Bilirubin <0.15 L (0.30-1.20) mg/dL Albumin 2.9 L (3.8-4.9) g/dL Globulin 3.4 H (1.6-3.3) g/dL Albumin/Globulin Ratio 0.85 L (1.60-3.17) g/dL Microbiology - Last 24 Hours (Table) 05/26/22 18:00 Urine Culture - Final Urine,Voided Proteus mirabilis 05/25/22 16:36 Urine Culture - Final Urine,Voided Proteus mirabilis Assessment and Plan Assessment: The patient is afebrile. She is awake and alert, but appears confused. Per nursing staff, the patient needed to be straight catheterized over night. The patient's incontinence makes it difficult to obtain a true PVR. Recommend intermittent catheterization for bladder scan > 400ml. Do not place indewelling catheter. Urine culture growing proteus mirabilis. Antibiotics per ID. (1) UTI (urinary tract infection) Current Visit: Yes Status: Acute Code(s): N39.0 - URINARY TRACT INFECTION, SITE NOT SPECIFIED SNOMED Code(s): 89358475 (2) Retention of urine, unspecified Current Visit: Yes Status: Acute Code(s): R33.9 - RETENTION OF URINE, UNSPECIFIED SNOMED Code(s): 143867896 Plan: - Antibiotics per IDs recommendations - straight cath for bladder scan > 400 ml - do not place indwelling catheter Impression and plan of care have been directed as dictated by the signing physician. Meghan Markham nurse practitioner acting as scribe for signing physician. Meghan Markham [facility] Palliative Care/Urology [facility] [id number] Email: [email or web address] I personally performed and participated in the history, physical, the decision making, I agree with the assessment and plan of SOLE TACKER
--- NOTE | 2022-05-29 12:51 | P.PN ---
Subjective Progress Note Date: 05/29/22 Principal diagnosis: Urinary tract infection Patient is 87-year-old female with multiple comorbidities including history of recurrent UTI chronic indwelling catheter for urinary retention presented to hospital mental status changes noticed to have a positive UA concerning for catheter associated UTI. On today's evaluation that is 05/29/2022, the patient continues to be afebrile, the patient denies any chest pain shortness of breath or cough , the patient denies nausea no vomiting no abdominal pain or diarrhea Objective - Vital Signs Vital signs: Vital Signs Temp 98.1 F 05/29/22 08:00 Pulse 91 05/29/22 08:00 Resp 16 05/29/22 08:00 BP 99/62 05/29/22 08:00 Pulse Ox 99 05/29/22 08:00 FiO2 Intake & Output 05/28/22 05/29/22 05/29/22 18:59 06:59 18:59 Intake Total 720 680 Output Total 376 Balance 720 304 Intake: Intake, IV Titration 360 Amount Ampicillin-Sulbactam 3 gm 100 In Sodium Chloride 0.9% 100 ml @ 200 mls/hr IVPB Q8HR [facility] Rx#:[id number] Sodium Chloride 0.9% 1, 260 000 ml @ 20 mls/hr IV . Q24H [facility] Rx#:[id number] Oral 720 320 Output: Urine 375 Straight 375 Stool 1 Other: Voiding Method Diaper Diaper Incontinent # Voids 1 # Bowel Movements 1 1 - Exam GENERAL DESCRIPTION: An elderly female lying in bed in no distress RESPIRATORY SYSTEM: Unlabored breathing , decreased breath sounds at bases HEART: S1 S2 regular rate and rhythm , ABDOMEN: Soft , no tenderness EXTREMITIES: No edema feet - Labs CBC & Chem 7: 05/28/22 05:26 05/28/22 05:26 Labs: Abnormal Lab Results - Last 24 Hours (Table) 05/28/22 Range/Units 05:26 Metamyelocytes % 1 H (0-0) % Myelocytes % 2 H (0-0) % Neutrophils # (Manual) 12.34 H (2.00-8.90) X 10*3/uL Basophils # (Manual) 0.15 H (0.00-0.10) X 10*3/uL Microbiology - Last 24 Hours (Table) 05/26/22 18:00 Urine Culture - Final Urine,Voided Proteus mirabilis 05/25/22 16:36 Urine Culture - Final Urine,Voided Proteus mirabilis Assessment and Plan (1) UTI (urinary tract infection) Current Visit: Yes Status: Acute Code(s): N39.0 - URINARY TRACT INFECTION, SITE NOT SPECIFIED SNOMED Code(s): 83945927 Plan: 1patient is in the hospital with mental status changes which is likely multifactorial in this patient who did have a mildly elevated white count and a positive UA concerning for possible catheter associated UTI patient to have underlying dementia and is not a very good historian and started on a clear in the Kurtz catheter was changed last 2Foley catheter has been changed and urine culture from the new Kurtz, which are currently pending 3patient did have history of cefuroxime ALLERGY in 2018 however the patient has tolerated Unasyn and Augmentin since then without any problem 4patient urine cultures has been finalized with Proteus that is sensitive to Unasyn 5-patient to continue with Unasyn while inpatient finishing therapy with oral Augmentin Time with Patient: Less than 30
--- NOTE | 2022-05-29 17:13 | P.PN ---
Subjective Progress Note Date: 05/28/22 Principal diagnosis: Altered mental status related to sepsis Sepsis related to urinary tract infection Urinary tract infection COPD Chronic anemia Hypothyroidism Peptic ulcer disease 05/28/2022, patient seen eval examined during the rounds labs reviewed medications reviewed care plan discussed, urine culture came back positive for a Proteus him a patient remains on IV Unasyn, ID service have been following, mental status continued to improve progressively denies any chest pain off of supplemental oxygen on room air, labs reviewed white cell count stable 15.4, hemoglobin and hematocrit 10 and 32 platelet count 352, sodium is 142 potassium 3.3 BUN creatinine is 25/0.6 05/27/2022, patient seen and evaluated examined labs reviewed medications reviewed, patient remains afebrile mental status slightly improved, oxygen saturation 97%, blood pressure slowly improving but remains on the low side however map better of 71 blood pressure 93/61 and urine culture results are still pending 87 year-old female came into the hospital with confusion, altered mental status, patient is a resident of extended care facility, she was the senior emergency department 2 weeks ago with urinary tract infection was the place a Kurtz's catheter and eventually was discharged however family has issues and problem with swallowing of urology, patient noted by staff to be more confused and somnolent sending her for further evaluation not much data can be obtained from the patient, her labs are significant for WBC count of 11.4, CBC otherwise within normal limit, chemistry significant for a BUN of 43 creatinine 0.7, LFTs were normal, urine analysis turbid with +3 protein and large leukocyte esterase trace and many bacteria and many clumps of WBC, urine culture is pending, te gordon has been started on Unasyn and continued on her home medications on specific questioning denies any loss of consciousness have braces, denies any chest pain or radiation of pain denies any nausea vomiting diarrhea Objective - Vital Signs Vital signs: Vital Signs Temp 97.6 F 05/28/22 07:12 Pulse 95 05/28/22 07:12 Resp 18 05/28/22 07:12 BP 90/58 05/28/22 07:12 Pulse Ox 98 05/28/22 07:12 FiO2 Intake & Output 05/27/22 05/28/22 05/28/22 18:59 06:59 18:59 Intake Total 900 Balance 900 Intake: Oral 900 Other: Voiding Method Indwelling Catheter Diaper Diaper Incontinent Incontinent # Voids 3 1 1 # Bowel Movements 1 3 1 - Exam General appearance: no acute distress, alert Eyes: nonicteric ENT: oropharynx dry Neck: supple Auscultation: Bilateral: clear Percussion: Bilateral: not dull Tactile fremitus: Bilateral: normal Cardiovascular: regular rate and rhythm Gastrointestinal: normoactive bowel sounds, soft, non-tender, non-distended Integumentary: normal Extremities: no edema Musculoskeletal: no deformities, ROM normal Gait: normal gait, normal posture normal mental status, non-focal exam, pupils equal and round, CN II-XII normal, motor strength normal and symmetric, more awake and alert compared to yesterday's exam - Labs CBC & Chem 7: 05/28/22 05:26 05/28/22 05:26 Labs: Abnormal Lab Results - Last 24 Hours (Table) 05/28/22 05/28/22 Range/Units 05:26 05:26 WBC 15.42 H (4.50-10.00) X 10*3/uL RBC 3.60 L (4.10-5.20) X 10*6/uL Hgb 10.2 L (12.0-15.0) g/dL Hct 32.1 L (37.2-46.3) % MCHC 31.8 L (32.0-37.0) g/dL Metamyelocytes % 1 H (0-0) % Myelocytes % 2 H (0-0) % Neutrophils # (Manual) 12.34 H (2.00-8.90) X 10*3/uL Basophils # (Manual) 0.15 H (0.00-0.10) X 10*3/uL Potassium 3.3 L (3.5-5.5) mmol/L Chloride 112 H (96-109) mmol/L BUN/Creatinine Ratio 42.17 H (12.00-20.00) Ratio Glucose 119 H (70-110) mg/dL Calcium 8.3 L (8.7-10.3) mg/dL Total Bilirubin <0.15 L (0.30-1.20) mg/dL Albumin 2.9 L (3.8-4.9) g/dL Globulin 3.4 H (1.6-3.3) g/dL Albumin/Globulin Ratio 0.85 L (1.60-3.17) g/dL Microbiology - Last 24 Hours (Table) 05/25/22 16:36 Urine Culture - Final Urine,Voided Proteus mirabilis Assessment and Plan Assessment: Altered mental status related to sepsis, slowly improving Sepsis related to urinary tract infection, remains on broad-spectrum antibiotic Urinary tract infection, as above COPD, not in exacerbation Chronic anemia, monitor observe Hypothyroidism, continue maintenance therapy with Synthroid Peptic ulcer disease Plan: Broad-spectrum IV antibiotics can be changed to oral Rehydration encourage patient to take by mouth Resume home medicines including Synthroid PPI iron sulfate can resume beta haven but would put parameters, and change Xanax to as needed Further plan of care as per clinical response of the patient Time with Patient: Greater than 30
[2022-05-29] MEDS: SODIUM CHLORIDE 0.9% 1,000 ML IV SCH (17:45)
[2022-05-30] MEDS: LEVOTHYROXINE 50 MCG TAB PO SCH (06:01)
[2022-05-30] MEDS: PANTOPRAZOLE 40 MG TABLET PO SCH (06:01)
[2022-05-30] MEDS: CLOTRIMAZOLE/BETAMETH 1-0.05% CREAM 45 GM TUBE TOPICAL SCH ×2 (08:50→21:09)
[2022-05-30] MEDS: AMPICILLIN-SULBACTAM 3 GM in SODIUM CHLORIDE 0.9% 100 ML IVPB SCH ×3 (08:50→21:10)
[2022-05-30] MEDS: SENNOSIDES 8.6 MG TAB PO SCH ×2 (08:50→08:54)
[2022-05-30] MEDS: FERROUS SULFATE 325 MG TAB PO SCH (08:50)
[2022-05-30] MEDS: MULTIVITAMINS, THERA 1 EACH TAB PO SCH (08:50)
[2022-05-30] MEDS: atenoloL 25 MG TAB PO SCH (08:50)
[2022-05-30] MEDS: NYSTATIN 100,000UNIT/GM CREAM 30 GM TUBE TOPICAL SCH ×2 (08:50→21:09)
[2022-05-30] MEDS: ALBUTEROL HFA INHALER INHALATION SCH ×2 (09:32→19:16)
--- NOTE | 2022-05-30 13:38 | P.PN ---
Subjective Progress Note Date: 05/30/22 Principal diagnosis: Urinary tract infection Patient is 87-year-old female with multiple comorbidities including history of recurrent UTI chronic indwelling catheter for urinary retention presented to hospital mental status changes noticed to have a positive UA concerning for catheter associated UTI. On today's evaluation that is 05/30/2022, the patient remains to be afebrile, the patient denies any chest pain shortness of breath or cough , the patient denies nausea no vomiting no abdominal pain or diarrhea, no new symptom feeling better Objective - Vital Signs Vital signs: Vital Signs Temp 98.2 F 05/30/22 06:53 Pulse 90 05/30/22 06:53 Resp 18 05/30/22 09:20 BP 116/73 05/30/22 06:53 Pulse Ox 97 05/30/22 06:53 FiO2 Intake & Output 05/29/22 05/30/22 05/30/22 18:59 06:59 18:59 Intake Total 440 100 Output Total 1 Balance 440 99 Weight 45.359 kg Intake: Intake, IV Titration 100 Amount Ampicillin-Sulbactam 3 gm 100 In Sodium Chloride 0.9% 100 ml @ 200 mls/hr IVPB Q8HR [facility] Rx#:[id number] Oral 340 100 Output: Stool 1 Other: Voiding Method Diaper # Voids 1 1 # Bowel Movements 2 1 - Exam GENERAL DESCRIPTION: An elderly female lying in bed in no distress RESPIRATORY SYSTEM: Unlabored breathing , decreased breath sounds at bases HEART: S1 S2 regular rate and rhythm , ABDOMEN: Soft , no tenderness EXTREMITIES: No edema feet - Labs CBC & Chem 7: 05/28/22 05:26 05/28/22 05:26 Assessment and Plan (1) UTI (urinary tract infection) Current Visit: Yes Status: Acute Code(s): N39.0 - URINARY TRACT INFECTION, SITE NOT SPECIFIED SNOMED Code(s): 16909565 Plan: 1patient is in the hospital with mental status changes which is likely multifactorial in this patient who did have a mildly elevated white count and a positive UA concerning for possible catheter associated UTI patient to have underlying dementia and is not a very good historian and started on a clear in the Kurtz catheter was changed last 2Foley catheter has been changed and urine culture from the new Kurtz, which are currently pending 3patient did have history of cefuroxime ALLERGY in 2018 however the patient has tolerated Unasyn and Augmentin since then without any problem 4patient urine cultures has been finalized with Proteus that is sensitive to Unasyn 5-patient seemed to have shown clinical improvement and will continue with Unasyn while inpatient finishing therapy with oral Augmentin Time with Patient: Less than 30
[2022-05-30] MEDS: SODIUM CHLORIDE 0.9% 1,000 ML IV SCH (15:13)
--- NOTE | 2022-05-30 20:40 | PN ---
PROGRESS NOTE SUBJECTIVE: She was admitted with drug-resistant UTI. Remains on Unasyn, Tenormin, iron, Synthroid, Mycostatin cream, Protonix, fluids. OBJECTIVE: CARDIOVASCULAR: S1, S2. HEMATOLOGY: Negative Homans. PSYCH: Fair mood and affect. VITAL SIGNS: She is saturating 97% on room air, temperature 98.2, pulse , blood pressure 115/73. PLAN: Continue with IV Unasyn for Proteus mirabilis infection. Rehydrate patient. Continue current treatments. Wait for Infectious Disease recommendations. MMODL / IJN: [id number] /
--- NOTE | 2022-05-31 00:16 | PN ---
PROGRESS NOTE SUBJECTIVE: Recurrent UTI, Proteus mirabilis positive resistant to Bactrim, Cipro and Levaquin. Continue on Unasyn for now. Get Infectious Disease consult. Continue PT/OT. OBJECTIVE: VITAL SIGNS: She sats 99% on room air. Blood pressure is high 90s to low 100s over 60s. Pulse is 90, respiratory rate 16 to 18, temperature 99.4. CARDIOVASCULAR: S1, S2. LUNGS: Scattered wheeze. HEMATOLOGY: Negative Homans. PSYCHIATRIC: Fair mood and affect. OPHTHALMOLOGIC: Pupils are equal, round, reactive. ASSESSMENT: 1. Drug-resistant urinary tract infection, Proteus mirabilis, chronic indwelling Kurtz catheter. Plan is to continue current antibiotics. Wait for Infectious Disease recommendations. 2. Altered mental status secondary to positive urinalysis. Kurtz catheter associated urinary tract infection. She did have a cefuroxime allergy. PLAN: She tolerated Unasyn and Augmentin. Continue Unasyn currently as she has failed outpatient treatment, and oral Augmentin. PROGNOSIS: Guarded. Follow up in next 24 to 48 hours. MMODL / IJN: [id number] /
[2022-05-31] MEDS: PANTOPRAZOLE 40 MG TABLET PO SCH (05:26)
[2022-05-31] MEDS: LEVOTHYROXINE 50 MCG TAB PO SCH (05:26)
[2022-05-31] MEDS: ALBUTEROL HFA INHALER INHALATION SCH ×2 (08:02→20:48)
[2022-05-31] MEDS: AMPICILLIN-SULBACTAM 3 GM in SODIUM CHLORIDE 0.9% 100 ML IVPB SCH (08:21)
[2022-05-31] MEDS: MULTIVITAMINS, THERA 1 EACH TAB PO SCH (08:21)
[2022-05-31] MEDS: FERROUS SULFATE 325 MG TAB PO SCH (08:21)
[2022-05-31] MEDS: atenoloL 25 MG TAB PO SCH (08:21)
[2022-05-31] MEDS: SENNOSIDES 8.6 MG TAB PO SCH (08:21)
[2022-05-31] MEDS: CLOTRIMAZOLE/BETAMETH 1-0.05% CREAM 45 GM TUBE TOPICAL SCH ×2 (08:22→20:03)
[2022-05-31] MEDS: NYSTATIN 100,000UNIT/GM CREAM 30 GM TUBE TOPICAL SCH ×2 (08:22→20:03)
--- NOTE | 2022-05-31 13:34 | P.PN ---
Subjective Progress Note Date: 05/31/22 Principal diagnosis: Urinary tract infection Patient is 87-year-old female with multiple comorbidities including history of recurrent UTI chronic indwelling catheter for urinary retention presented to hospital mental status changes noticed to have a positive UA concerning for catheter associated UTI. On today's evaluation that is 05/31/2022, the patient continues to be afebrile, the patient denies chest pain shortness of breath or cough , the patient denies nausea no vomiting no abdominal pain or diarrhea, patient denies any new symptom at this point Objective - Vital Signs Vital signs: Vital Signs Temp 98.4 F 05/31/22 07:36 Pulse 86 05/31/22 08:22 Resp 17 05/31/22 08:22 BP 104/56 05/31/22 07:36 Pulse Ox 95 05/31/22 07:36 FiO2 Intake & Output 05/30/22 05/31/22 05/31/22 18:59 06:59 18:59 Intake Total 650 Output Total 1 1 Balance 649 -1 Weight 45.359 kg Intake: Oral 650 Output: Stool 1 1 Other: Voiding Method Diaper Diaper Diaper # Voids 2 1 - Exam GENERAL DESCRIPTION: An elderly female lying in bed in no distress RESPIRATORY SYSTEM: Unlabored breathing , decreased breath sounds at bases HEART: S1 S2 regular rate and rhythm , ABDOMEN: Soft , no tenderness EXTREMITIES: No edema feet - Labs CBC & Chem 7: 05/28/22 05:26 05/28/22 05:26 Assessment and Plan (1) UTI (urinary tract infection) Current Visit: Yes Status: Acute Code(s): N39.0 - URINARY TRACT INFECTION, SITE NOT SPECIFIED SNOMED Code(s): 48033831 Plan: 1patient is in the hospital with mental status changes which is likely multifactorial in this patient who did have a mildly elevated white count and a positive UA concerning for possible catheter associated UTI patient to have underlying dementia and is not a very good historian and started on a clear in the Kurtz catheter was changed last 2Foley catheter has been changed and urine culture from the new Kurtz, grew Proteus as well 3patient did have history of cefuroxime ALLERGY in 2018 however the patient has tolerated Unasyn and Augmentin since then without any problem 4patient urine cultures has been finalized with Proteus that is sensitive to Unasyn 5-patient has shown clinical improvement and is currently being treated with Unasyn and plan to finish therapy with oral Augmentin Time with Patient: Less than 30
[2022-05-31] MEDS: AMOXIC-POT CLAV 875-125MG 1 EACH TAB PO SCH (20:03)
[2022-05-31] MEDS: SODIUM CHLORIDE 0.9% 1,000 ML IV SCH (20:06)
[2022-06-01] MEDS: POTASSIUM CHLORIDE ER 20 MEQ TAB.ER PO SCH ×2 (00:55→08:12)
--- NOTE | 2022-06-01 05:57 | PN ---
PROGRESS NOTE SUBJECTIVE: An 87-year-old white female with drug-resistant UTI growing Proteus. She has had a good course of Unasyn which switched to Augmentin for discharge home tomorrow. Metabolically, she has improved with she has improved with her dehydration. She is back to her baseline of confusion and for dementia. She is pleasantly confused. OBJECTIVE: CARDIOVASCULAR: S1, S2. LUNGS: Clear. GI: Soft. ASSESSMENT: Recurrent urinary tract infection drug-resistant, was switched to oral Augmentin. Discharged to home in the morning. Fluid rehydration has been received. etc., will be continued. Home medicines will be reordered. Prognosis guarded. MMODL / IJN: [id number] /
[2022-06-01] MEDS: LEVOTHYROXINE 50 MCG TAB PO SCH (06:11)
[2022-06-01] MEDS: ALBUTEROL HFA INHALER INHALATION SCH (08:10)
[2022-06-01] MEDS: AMOXIC-POT CLAV 875-125MG 1 EACH TAB PO SCH (08:11)
[2022-06-01] MEDS: PANTOPRAZOLE 40 MG TABLET PO SCH (08:11)
[2022-06-01] MEDS: NYSTATIN 100,000UNIT/GM CREAM 30 GM TUBE TOPICAL SCH (08:12)
[2022-06-01] MEDS: atenoloL 25 MG TAB PO SCH (08:12)
[2022-06-01] MEDS: MULTIVITAMINS, THERA 1 EACH TAB PO SCH (08:12)
[2022-06-01] MEDS: FERROUS SULFATE 325 MG TAB PO SCH (08:12)
[2022-06-01] MEDS: CLOTRIMAZOLE/BETAMETH 1-0.05% CREAM 45 GM TUBE TOPICAL SCH (08:12)
[2022-06-01] MEDS: SENNOSIDES 8.6 MG TAB PO SCH (08:12)
[2022-06-01 08:23] VITALS: BP 116/76; PULSE 75; RESP 19; TEMP 97.6
--- NOTE | 2022-06-01 22:51 | P.PN ---
Subjective Progress Note Date: 06/01/22 Principal diagnosis: Urinary tract infection Patient is 87-year-old female with multiple comorbidities including history of recurrent UTI chronic indwelling catheter for urinary retention presented to hospital mental status changes noticed to have a positive UA concerning for catheter associated UTI. On today's evaluation that is 06/01/2022, the patient to be afebrile, the patient denies chest pain shortness of breath or cough , the patient denies nausea no vomiting no abdominal pain or diarrhea, Objective - Vital Signs Vital signs: Vital Signs Temp 97.6 F 06/01/22 08:00 Pulse 75 06/01/22 08:00 Resp 19 06/01/22 08:00 BP 116/76 06/01/22 08:00 Pulse Ox 99 06/01/22 08:28 FiO2 Intake & Output 05/31/22 06/01/22 06/01/22 18:59 06:59 18:59 Output Total 400 Balance -400 Weight 45.359 kg Output: Urine 400 Other: Voiding Method Diaper Diaper Diaper # Voids 3 - Exam GENERAL DESCRIPTION: An elderly female lying in bed in no distress RESPIRATORY SYSTEM: Unlabored breathing , decreased breath sounds at bases HEART: S1 S2 regular rate and rhythm , ABDOMEN: Soft , no tenderness EXTREMITIES: No edema feet - Labs CBC & Chem 7: 05/28/22 05:26 05/28/22 05:26 Assessment and Plan (1) UTI (urinary tract infection) Status: Acute Code(s): N39.0 - URINARY TRACT INFECTION, SITE NOT SPECIFIED SNOMED Code(s): 92550986 Plan: 1patient is in the hospital with mental status changes which is likely multifactorial in this patient who did have a mildly elevated white count and a positive UA concerning for possible catheter associated UTI patient to have underlying dementia and is not a very good historian and started on a clear in the Kurtz catheter was changed last 2Foley catheter has been changed and urine culture from the new Kurtz, grew Proteus as well 3patient did have history of cefuroxime ALLERGY in 2018 however the patient has tolerated Unasyn and Augmentin since then without any problem 4patient urine cultures has been finalized with Proteus that is sensitive to Unasyn 5-patient has shown clinical improvement and the patient has been switched over to oral Augmentin continued for another 3 days to finish course of therapy Time with Patient: Less than 30
--- NOTE | 2022-06-20 22:03 | PN ---
PROGRESS NOTE Metabolic encephalopathy due to sepsis UTI on top of dementia as well as normal- pressure hydrocephalus and moderate protein-calorie malnutrition, coccyx ulcer stage II, UTI, not related to catheter, coccyx pressure ulcer stage II. MMODL / IJN: [id number] /
== END 2022-06-01 11:57 | disposition home health service (06) | DRG 871 ==
LOC: EC 14:52 → 5NMEDONC 19:37 → 4SSUR 19:52
PROVIDERS: ADMIT Internal Medicine Sleep Medicine; ATTEND Internal Medicine Sleep Medicine
DX: A41.59 Other Gram-negative sepsis (principal); G93.41 Metabolic encephalopathy; C79.51 Secondary malignant neoplasm of bone; N17.9 Acute kidney failure, unspecified; Z16.29 Resistance to other single specified antibiotic; E44.0 Moderate protein-calorie malnutrition; Z68.1 Body mass index [BMI] 19.9 or less, adult; D64.9 Anemia, unspecified; E86.0 Dehydration; F03.90 Unspecified dementia, unspecified severity, without behavioral disturbance, psychotic disturbance, mood disturbance, and anxiety; I11.0 Hypertensive heart disease with heart failure; I50.9 Heart failure, unspecified; Z86.14 Personal history of Methicillin resistant Staphylococcus aureus infection; R33.8 Other retention of urine; R32 Unspecified urinary incontinence; L89.152 Pressure ulcer of sacral region, stage 2; Y84.6 Urinary catheterization as the cause of abnormal reaction of the patient, or of later complication, without mention of misadventure at the time of the procedure; Z79.890 Hormone replacement therapy; L89.151 Pressure ulcer of sacral region, stage 1; Z79.899 Other long term (current) drug therapy; Z87.440 Personal history of urinary (tract) infections; Z85.3 Personal history of malignant neoplasm of breast; Z90.11 Acquired absence of right breast and nipple; Z96.641 Presence of right artificial hip joint
CPT/HCPCS: 36415; 80053; 81001; 83605; 85025; 87077; 87086; 87186; 93005; 94640; 94760; 96365; 96366; 99285

== ENCOUNTER 2022-06-15 09:34 | Observation (INO) | payer MEDICARE ==
[2022-06-15] MEDS ORDERED: SODIUM CHLORIDE 0.9% 1,000 ML IV STA (09:51)
[2022-06-15] MEDS ORDERED: SODIUM CHLORIDE 0.9% 500 ML 500 ML IV ONE (09:51)
[2022-06-15] MEDS ORDERED: LEVOFLOXACIN 750 MG TAB PO STA (09:51)
[2022-06-15 10:07] LABS: Basophils # (A) 0.1 k/uL (0-0.2); Basophils % (A) 1 %; Eosinophils # (A) 0.4 k/uL (0-0.7); Eosinophils % (A) 7 %; HCT 32.7 % (34.0-46.0); Lymphocytes # (A) 1.6 k/uL (1.0-4.8); Lymphocytes % (A) 26 %; MCH 28.8 pg (25.0-35.0); MCHC 32.7 g/dL (31.0-37.0); MCV 88.1 fL (80.0-100.0); Mean Platelet Volume 7.3; Monocytes # (A) 0.4 k/uL (0-1.0); Monocytes % (A) 6 %; Neutrophils # (A) 3.6 k/uL (1.3-7.7); Neutrophils % (A) 58 %; Platelet Count 272 k/uL (150-450); RBC 3.71 m/uL (3.80-5.40); RDW 15.1 % (11.5-15.5); WBC 6.3 k/uL (3.8-10.6)
--- NOTE | 2022-06-15 10:12 | ED ---
General Adult HPI - General Chief complaint: Urogenital Stated complaint: Poss UTI Time Seen by Provider: 06/15/22 09:40 Source: EMS, RN notes reviewed, old records reviewed Mode of arrival: EMS Limitations: altered mental status - History of Present Illness Initial comments: This is an 87-year-old female presents emergency room for altered mental status. Patient comes from home. No family members with any further history patient is unable to give any history. EMS gives all the history. Patient was here because of altered mental status according to EMS family stated that she had been in multiple times to the emergency department and the hospital for altered mental status secondary to urinary tract infections. Patient's had a urinary tract infection back in May and was admitted to the hospital. There is no history of any fevers. She denies any difficulty breathing. No history of any trauma. - Related Data Home Medications Medication Instructions Recorded Confirmed Levothyroxine Sodium [Synthroid] 50 mcg PO DAILY 04/01/17 06/15/22 Multivitamins, Thera [Multivitamin 1 tab PO DAILY 11/02/19 06/15/22 (formulary)] Omeprazole 40 mg PO DAILY 11/02/19 06/15/22 Sennosides [Senokot] 8.6 mg PO DAILY 05/25/22 06/15/22 atenoloL [Tenormin] 25 mg PO DAILY 05/25/22 06/15/22 Aspirin EC [Ecotrin Low Dose] 81 mg PO DAILY 06/15/22 06/15/22 Previous Rx's Medication Instructions Recorded Potassium Chloride ER [K-Dur 20] 20 meq PO DAILY 90 Days #90 tab 05/31/22 Allergies Allergy/AdvReac Type Severity Reaction Status Date / Time cefuroxime Allergy Intermediate Hives Verified 06/15/22 10:44 Review of Systems ROS Statement: Those systems with pertinent positive or pertinent negative responses have been documented in the HPI. ROS Other: All systems not noted in ROS Statement are negative. 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 Past Anesthesia/Blood Transfusion Reactions: No Reported Reaction Past Psychological History: No Psychological Hx Reported Smoking Status: Unknown if ever smoked Past Alcohol Use History: None Reported Past Drug Use History: None Reported - Past Family History Father Additional Family Medical History / Comment(s): heart disease. Mother Additional Family Medical History / Comment(s): heart disease. Sister(s) Family Medical History: Cancer Additional Family Medical History / Comment(s): 3 SISTERS WITH BREAST CA General Exam - General Exam Comments Initial Comments: GENERAL: Patient is well-developed and well-nourished. Patient is nontoxic and well- hydrated and is in no acute distress. ENT: Neck is soft and supple. No significant lymphadenopathy is noted. Oropharynx is clear. Moist mucous membranes. Neck has full range of motion without eliciting any pain. EYES: The sclera were anicteric and conjunctiva were pink and moist. Extraocular movements were intact and pupils were equal round and reactive to light. Eyelids were unremarkable. PULMONARY: Unlabored respirations. Good breath sounds bilaterally. No audible rales rhonchi or wheezing was noted. CARDIOVASCULAR: There is a regular rate and rhythm without any murmurs gallops or rubs. ABDOMEN: Soft and nontender with normal bowel sounds. SKIN: Skin is clear with no lesions or rashes and otherwise unremarkable. NEUROLOGIC: Patient is alert and oriented times one. Cranial nerves II through XII are grossly intact. Motor and sensory are also intact. Normal speech, volume and content. Symmetrical smile. MUSCULOSKELETAL: Normal extremities with adequate strength and full range of motion. No lower extremity swelling or edema. No calf tenderness. LYMPHATICS: No significant lymphadenopathy is noted PSYCHIATRIC: Normal psychiatric evaluation. Limitations: altered mental status Course Vital Signs 06/15/22 06/15/22 06/15/22 09:40 10:43 12:43 Temperature 97.8 F Pulse Rate 90 89 87 Respiratory 16 16 18 Rate Blood Pressure 98/54 110/59 110/53 O2 Sat by Pulse 98 99 99 Oximetry Medical Decision Making - Medical Decision Making Was pt. sent in by a medical professional or institution (, PA, CIRCUITRY NEGATIVE INSPECTOR, urgent care, hospital, or alf...) When possible be specific @ -No Did you speak to anyone other than the patient for history (EMS, parent, family, police, friend...)? What history was obtained from this source @ -EMS gave most of his tenderness patient which came from the family Did you review nursing and triage notes (agree or disagree)? Why? @ -I reviewed and agree with nursing and triage notes Were old charts reviewed (outside hosp., previous admission, EMS record, old EKG, old radiological studies, urgent care reports/EKG's, alf records)? Report findings @ -I reviewed prior laboratory studies Differential Diagnosis (chest pain, altered mental status, abdominal pain women, abdominal pain men, vaginal bleeding, weakness, fever, dyspnea, syncope, headache, dizziness, GI bleed, back pain, seizure, CVA, palpatations, mental health, musculoskeletal)? @ -Differential Altered Mental Status: Hypoglycemia, DKA, hypercapnia, ETOH, overdose, CO poisoning, trauma, myxedema coma, HTN encephalopathy, infection, encephalitis, psychosis, intercranial hemorrhage, hepatic encephalopathy, meningitis, CVA, this is not meant to be an all-inclusive list EKG interpreted by me (3pts min.). @ -As above X-rays interpreted by me (1pt min.). @ -None done CT interpreted by me (1pt min.). @ -None done U/S interpreted by me (1pt. min.). @ -None done What testing was considered but not performed or refused? (CT, X-rays, U/S, labs)? Why? @ -None What meds were considered but not given or refused? Why? @ -None Did you discuss the management of the patient with other professionals (professionals i.e. , PA, CIRCUITRY NEGATIVE INSPECTOR, lab, RT, psych nurse, social sciences lecturer, junior oracle dba, teacher, unarmed security officer, case fitter)? Give summary @ -Poke with Dr. Zhong he agreed to admit the patient and the patient wrote admitting orders Was smoking cessation discussed for >3mins.? @ -No Was critical care preformed (if so, how long)? @ -No Were there social determinants of health that impacted care today? How? (Homelessness, low income, unemployed, alcoholism, drug addiction, transportation, low edu. Level, literacy, decrease access to med. care, fci, rehab)? @ -No Was there de-escalation of care discussed even if they declined (Discuss DNR or withdrawal of care, Hospice)? DNR status @ -No What co-morbidities impacted this encounter? (DM, HTN, Smoking, COPD, CAD, Cancer, CVA, ARF, Chemo, Hep., AIDS, mental health diagnosis, sleep apnea, morbid obesity)? @ -None Was patient admitted / discharged? Hospital course, mention meds given and route, prescriptions, significant lab abnormalities, going to OR and other pertinent info. @ -Patient urinary tract infection I gave the patient [facility] emergency department. Patient will be admitted to Dr. Zhong. They she will have antibiotics continued on the floor. Undiagnosed new problem with uncertain prognosis? @ -No Drug Therapy requiring intensive monitoring for toxicity (Heparin, Nitro, Insulin, Cardizem)? @ -No Were any procedures done? @ -No Diagnosis/symptom? @ -Urinary tract infection Acute, or Chronic, or Acute on Chronic? @ -Acute Uncomplicated (without systemic symptoms) or Complicated (systemic symptoms)? @ -Complicated Side effects of treatment? @ -No Exacerbation, Progression, or Severe Exacerbation? @ -No Poses a threat to life or bodily function? How? (Chest pain, USA, MT, pneumonia, PE, COPD, DKA, ARF, appy, cholecystitis, CVA, Diverticulitis, Homicidal, Suicidal, threat to staff... and all critical care pts) @ -Yes patient did become septic and cause end organ dysfunction Diagnosis/symptom? @ -Altered mental status Acute, or Chronic, or Acute on Chronic? @ -Acute Uncomplicated (without systemic symptoms) or Complicated (systemic symptoms)? @ -Complicated Side effects of treatment? @ -none Exacerbation, Progression, or Severe Exacerbation] @ -no Poses a threat to life or bodily function? @ -no - Lab Data Result diagrams: 06/15/22 09:54 06/15/22 09:54 Lab Results 06/15/22 06/15/22 06/15/22 Range/Units 09:54 09:54 09:54 WBC 6.3 (3.8-10.6) k/uL RBC 3.71 L (3.80-5.40) m/uL Hgb 10.7 L D (11.4-16.0) gm/dL Hct 32.7 L (34.0-46.0) % MCV 88.1 (80.0-100.0) fL MCH 28.8 (25.0-35.0) pg MCHC 32.7 (31.0-37.0) g/dL RDW 15.1 (11.5-15.5) % Plt Count 272 (150-450) k/uL MPV 7.3 Neutrophils % 58 % Lymphocytes % 26 % Monocytes % 6 % Eosinophils % 7 % Basophils % 1 % Neutrophils # 3.6 (1.3-7.7) k/uL Lymphocytes # 1.6 (1.0-4.8) k/uL Monocytes # 0.4 (0-1.0) k/uL Eosinophils # 0.4 (0-0.7) k/uL Basophils # 0.1 (0-0.2) k/uL Sodium 140 (137-145) mmol/L Potassium 4.8 (3.5-5.1) mmol/L Chloride 110 H (98-107) mmol/L Carbon Dioxide 25 (22-30) mmol/L Anion Gap 5 mmol/L BUN 18 H (7-17) mg/dL Creatinine 0.60 (0.52-1.04) mg/dL Est GFR (CKD-EPI)AfAm >90 (>60 ml/min/1.73 sqM) Est GFR (CKD-EPI)NonAf 81 (>60 ml/min/1.73 sqM) Glucose 104 H (74-99) mg/dL Plasma Lactic Acid Teofilo (0.7-2.0) mmol/L Calcium 8.9 (8.4-10.2) mg/dL Total Bilirubin 0.5 (0.2-1.3) mg/dL AST 20 (14-36) U/L ALT 13 (4-34) U/L Alkaline Phosphatase 63 (38-126) U/L Total Protein 6.9 (6.3-8.2) g/dL Albumin 3.2 L (3.5-5.0) g/dL Urine Color Yellow Urine Appearance Cloudy H (Clear) Urine pH 5.5 (5.0-8.0) Ur Specific Apex 1.015 (1.001-1.035) Urine Protein Trace H (Negative) Urine Glucose (UA) Negative (Negative) Urine Ketones Negative (Negative) Urine Blood Negative (Negative) Urine Nitrite Negative (Negative) Urine Bilirubin Negative (Negative) Urine Urobilinogen <2.0 (<2.0) mg/dL Ur Leukocyte Esterase Large H (Negative) Urine RBC 9 H (0-5) /hpf Urine WBC 97 H (0-5) /hpf Urine WBC Clumps Many H (None) /hpf Ur Squamous Epith Cells 4 (0-4) /hpf Urine Mucus Rare H (None) /hpf Urine Yeast (Budding) Many H (None) /hpf 06/15/22 Range/Units 09:54 WBC (3.8-10.6) k/uL RBC (3.80-5.40) m/uL Hgb (11.4-16.0) gm/dL Hct (34.0-46.0) % MCV (80.0-100.0) fL MCH (25.0-35.0) pg MCHC (31.0-37.0) g/dL RDW (11.5-15.5) % Plt Count (150-450) k/uL MPV Neutrophils % % Lymphocytes % % Monocytes % % Eosinophils % % Basophils % % Neutrophils # (1.3-7.7) k/uL Lymphocytes # (1.0-4.8) k/uL Monocytes # (0-1.0) k/uL Eosinophils # (0-0.7) k/uL Basophils # (0-0.2) k/uL Sodium (137-145) mmol/L Potassium (3.5-5.1) mmol/L Chloride (98-107) mmol/L Carbon Dioxide (22-30) mmol/L Anion Gap mmol/L BUN (7-17) mg/dL Creatinine (0.52-1.04) mg/dL Est GFR (CKD-EPI)AfAm (>60 ml/min/1.73 sqM) Est GFR (CKD-EPI)NonAf (>60 ml/min/1.73 sqM) Glucose (74-99) mg/dL Plasma Lactic Acid Teofilo 1.1 (0.7-2.0) mmol/L Calcium (8.4-10.2) mg/dL Total Bilirubin (0.2-1.3) mg/dL AST (14-36) U/L ALT (4-34) U/L Alkaline Phosphatase (38-126) U/L Total Protein (6.3-8.2) g/dL Albumin (3.5-5.0) g/dL Urine Color Urine Appearance (Clear) Urine pH (5.0-8.0) Ur Specific Apex (1.001-1.035) Urine Protein (Negative) Urine Glucose (UA) (Negative) Urine Ketones (Negative) Urine Blood (Negative) Urine Nitrite (Negative) Urine Bilirubin (Negative) Urine Urobilinogen (<2.0) mg/dL Ur Leukocyte Esterase (Negative) Urine RBC (0-5) /hpf Urine WBC (0-5) /hpf Urine WBC Clumps (None) /hpf Ur Squamous Epith Cells (0-4) /hpf Urine Mucus (None) /hpf Urine Yeast (Budding) (None) /hpf Disposition Clinical Impression: Altered mental status, Urinary tract infection Disposition: ADMITTED IP TO THIS [facility] Referrals: Victor Hugo Zhong MD [Primary Care Provider] - 1-2 days Time of Disposition: 11:34
[2022-06-15 10:14] LABS: ALT 13 U/L (4-34); AST 20 U/L (14-36); African American GFR (CKD) >90 (>60 ml/min/1.73 sqM); Albumin 3.2 g/dL (3.5-5.0); Alkaline Phosphatase 63 U/L (38-126); Anion Gap 5 mmol/L; Blood Urea Nitrogen 18 mg/dL (7-17); Calcium 8.9 mg/dL (8.4-10.2); Carbon Dioxide 25 mmol/L (22-30); Chloride 110 mmol/L (98-107); Glucose 104 mg/dL (74-99); Non-African American GFR(CKD) 81 (>60 ml/min/1.73 sqM); Potassium 4.8 mmol/L (3.5-5.1); Sodium 140 mmol/L (137-145); Total Bilirubin 0.5 mg/dL (0.2-1.3); Total Protein 6.9 g/dL (6.3-8.2)
[2022-06-15 10:16] LABS: HGB 10.7 gm/dL (11.4-16.0)
[2022-06-15 10:45] LABS: Appearance,Urine Cloudy (Clear); Bilirubin,Urine Negative (Negative); Blood,Urine Negative (Negative); Budding Yeast,Urine Many /hpf; Color,Urine Yellow; Glucose,Urine (UA) Negative (Negative); Ketones,Urine Negative (Negative); Leukocyte Esterase,Urine Large (Negative); Mucus,Urine Rare /hpf; Nitrite,Urine Negative (Negative); PH, Urine 5.5 (5.0-8.0); Protein,Urine Trace (Negative); RBC,Urine 9 /hpf (0-5); Specific Gravity,Urine 1.015 (1.001-1.035); Squamous Epithelial Cell,Urine 4 /hpf (0-4); Urobilinogen,Urine <2.0 mg/dL (<2.0); WBC,Urine 97 /hpf (0-5)
--- NOTE | 2022-06-15 11:07 | XR ---
EXAMINATION TYPE: XR chest 2V DATE OF EXAM: 06/15/2022 10:59 AM COMPARISON: Chest radiographs from 05/01/2022 TECHNIQUE: XR chest 2V Frontal and lateral views of the chest. CLINICAL INDICATION:Female, 87 years old with history of Difficulty breathing ; FINDINGS: Patient is rotated which limits evaluation. Lungs/Pleura: There is no evidence of pleural effusion, focal consolidation, or pneumothorax. Pulmonary vascularity: Unremarkable. Heart/mediastinum: Cardiomediastinal silhouette is enlarged and stable. Pole calcified granulomas wit hin the left perihilar region. Atherosclerotic calcifications are seen in the aorta. Musculoskeletal: Multiple level degenerative disc disease changes seen throughout the spine. No acute osseous abnormality. IMPRESSION: Chronic changes without evidence for acute process.
[2022-06-15] MEDS ORDERED: SODIUM CHLORIDE 0.9% 1,000 ML IV ONE (13:02)
[2022-06-15] MEDS: FLUCONAZOLE 100 MG TAB PO SCH (16:10)
[2022-06-15] MEDS: AMPICILLIN-SULBACTAM 3 GM in SODIUM CHLORIDE 0.9% 100 ML IVPB SCH (16:10)
[2022-06-15] MEDS: MEMANTINE 5 MG TAB PO SCH (20:47)
--- NOTE | 2022-06-15 22:46 | P.CONS ---
History of Present Illness - Reason for Consult Consult date: 06/15/22 UTI Requesting physician: Victor Hugo Zhong - Chief Complaint Weakness and mental status changes x one day - History of Present Illness Patient is a 87-year-old female with a past medical history significant for recurrent urinary tract infection and senior living resident also with a history of COPD dementia heart failure and reflux with metastatic breast cancer the patient was sent to the ER this morning for evaluation of mental status changes symptom. Has been going on for a day before the patient was brought to the hospital noted history of any trauma or fall patient denies having any headache no URI symptoms no chest pain shortness breath or cough no abdominal pain no diarrhea on presentation to hospital patient was afebrile patient did have a normal white count creatinine was normal liver enzymes are normal patient did have a positive UA also showing budding yeast patient did have a chest x-ray chronic changes without evidence for acute process patient did have cefuroxime allergy she was started on Levaquin infectious disease was consulted for further management of antibiotic therapy Review of Systems Positive point has been mentioned in the HPI rest of the systems are negative Past Medical History Past Medical History: Cancer, Heart Failure, COPD, Dementia, GERD/Reflux, Thyroid Disorder Additional Past Medical History / Comment(s): HIATAL HERNIA, metastatic breast ca, bone cancer(thoracic spine), 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 Past Anesthesia/Blood Transfusion Reactions: No Reported Reaction Past Psychological History: No Psychological Hx Reported Smoking Status: Unknown if ever smoked Past Alcohol Use History: None Reported Past Drug Use History: None Reported - Past Family History Father Additional Family Medical History / Comment(s): heart disease. Mother Additional Family Medical History / Comment(s): heart disease. Sister(s) Family Medical History: Cancer Additional Family Medical History / Comment(s): 3 SISTERS WITH BREAST CA Medications and Allergies Home Medications Medication Instructions Recorded Confirmed Type Levothyroxine Sodium [Synthroid] 50 mcg PO DAILY 04/01/17 06/15/22 History Multivitamins, Thera [Multivitamin 1 tab PO DAILY 11/02/19 06/15/22 History (formulary)] Omeprazole 40 mg PO DAILY 11/02/19 06/15/22 History Sennosides [Senokot] 8.6 mg PO DAILY 05/25/22 06/15/22 History atenoloL [Tenormin] 25 mg PO DAILY 05/25/22 06/15/22 History Potassium Chloride ER [K-Dur 20] 20 meq PO DAILY 90 Days #90 tab 05/31/22 06/15/22 Rx Aspirin EC [Ecotrin Low Dose] 81 mg PO DAILY 06/15/22 06/15/22 History Donepezil [Aricept] 10 mg PO HS 90 Days #90 tab 06/19/22 Rx Fluconazole [Diflucan] 100 mg PO DAILY 5 Days #5 tab 06/19/22 Rx Memantine [Namenda] 5 mg PO BID 90 Days #180 tab 06/19/22 Rx acetaZOLAMIDE [Diamox] 500 mg PO DAILY 90 Days #90 tab 06/19/22 Rx Allergies Allergy/AdvReac Type Severity Reaction Status Date / Time cefuroxime Allergy Intermediate Hives Verified 06/15/22 10:44 Physical Exam Vitals: Vital Signs Temp Pulse Resp BP Pulse Ox 06/15/22 14:19 84 18 113/56 99 06/15/22 12:43 87 18 110/53 99 06/15/22 10:43 89 16 110/59 99 06/15/22 09:40 97.8 F 90 16 98/54 98 Intake and Output 06/14/22 06/15/22 06/15/22 22:59 06:59 14:59 Other: Weight 58.967 kg GENERAL DESCRIPTION: Elderly female lying in bed, no distress. No tachypnea or accessory muscle of respiration use. HEENT: Shows Pallor , no scleral icterus. Oral mucous membrane is dry. No pharyngeal erythema or thrush NECK: Trachea central, no thyromegaly. LUNGS: Unlabored breathing. Clear to auscultation anteriorly. No wheeze or crackle. HEART: S1, S2, regular rate and rhythm. No loud murmur ABDOMEN: Soft, no tenderness , guarding or rigidity, no organomegaly EXTREMITIES: No edema of feet. SKIN: No rash, no masses palpable. NEUROLOGICAL: The patient is awake, alert, mood and affect normal. Results CBC & Chem 7: 06/15/22 09:54 06/15/22 09:54 Labs: Abnormal Lab Results - Last 24 Hours (Table) 06/15/22 06/15/22 06/15/22 Range/Units 09:54 09:54 09:54 RBC 3.71 L (3.80-5.40) m/uL Hgb 10.7 L D (11.4-16.0) gm/dL Hct 32.7 L (34.0-46.0) % Chloride 110 H (98-107) mmol/L BUN 18 H (7-17) mg/dL Glucose 104 H (74-99) mg/dL Albumin 3.2 L (3.5-5.0) g/dL Urine Appearance Cloudy H (Clear) Urine Protein Trace H (Negative) Ur Leukocyte Esterase Large H (Negative) Urine RBC 9 H (0-5) /hpf Urine WBC 97 H (0-5) /hpf Urine WBC Clumps Many H (None) /hpf Urine Mucus Rare H (None) /hpf Urine Yeast (Budding) Many H (None) /hpf Assessment and Plan (1) UTI (urinary tract infection) Status: Acute Code(s): N39.0 - URINARY TRACT INFECTION, SITE NOT SPECIFIED SNOMED Code(s): 60011334 Plan: 1patient presented to hospital with mental status changes likely multifactorial with a positive urine likely secondary to catheter associated UTI as the patient chest x-ray was negative she is breathing comfortably room air abdomen was soft rectal examination and evidence of any cellulitis. 2Foley catheter should be changed urine culture from the new Kurtz. 3patient to have cefuroxime allergy that would limit the number of antibiotics safe to use. 4discontinue Levaquin start the patient on Unasyn and Diflucan while waiting for the culture to finalize. We will follow on clinical condition and cultures to further adjust medication if needed Thank you for this consultation we will follow the patient along with you Time with Patient: Greater than 30
[2022-06-16] MEDS: AMPICILLIN-SULBACTAM 3 GM in SODIUM CHLORIDE 0.9% 100 ML IVPB SCH ×3 (00:58→18:00)
[2022-06-16] MEDS: LEVOTHYROXINE 50 MCG TAB PO SCH (06:14)
[2022-06-16] MEDS: PANTOPRAZOLE 40 MG TABLET PO SCH (06:14)
[2022-06-16] MEDS: ASPIRIN 81 MG PO SCH (09:32)
[2022-06-16] MEDS: MEMANTINE 5 MG TAB PO SCH ×2 (09:32→20:53)
[2022-06-16] MEDS: FLUCONAZOLE 100 MG TAB PO SCH (09:32)
[2022-06-16] MEDS: MULTIVITAMINS, THERA 1 EACH TAB PO SCH (09:32)
[2022-06-16] MEDS: atenoloL 25 MG TAB PO SCH (09:32)
[2022-06-16] MEDS: SENNOSIDES 8.6 MG TAB PO SCH (09:32)
[2022-06-16] MEDS: POTASSIUM CHLORIDE ER 20 MEQ TAB.ER PO SCH (09:32)
[2022-06-16] MEDS ORDERED: LEVOFLOXACIN 750MG-D5W PMX 750 MG in DEXTROSE/WATER 1 150ML.BAG IVPB SCH (10:00)
--- NOTE | 2022-06-16 17:15 | CT ---
EXAMINATION TYPE: CT brain wo con DATE OF EXAM: 06/16/2022 COMPARISON: None HISTORY: AMS CT DLP: mGycm Automated exposure control for dose reduction was used. There is diffuse cerebral advanced atrophy. There is hypodensity in the periventricular white matter. There is enlargement of the ventricles. There is no mass effect nor midline shift. No sign of intrac ranial hemorrhage. The calvarium is intact. IMPRESSION: Cerebral atrophy and hydrocephalus. Chronic white matter disease. No change compared to old exam. No hemorrhage.
--- NOTE | 2022-06-16 22:36 | P.PN ---
Subjective Progress Note Date: 06/16/22 Principal diagnosis: Urinary tract infection Patient is 87 year female with a past medical history significant for recurrent urinary tract infection has been brought to the hospital for evaluation of mental status changes did have a positive UA concerning for UTI for the catheter was changed in the ER per the nursing staff. On today's evaluation of his 06/16/2022, the patient is afebrile patient slightly more awake and alert today, denies any chest pain shortness of breath or cough no abdominal pain or diarrhea Objective - Vital Signs Vital signs: Vital Signs Temp 97.2 F L 06/16/22 07:25 Pulse 91 06/16/22 07:25 Resp 17 06/16/22 07:25 BP 90/57 06/16/22 07:25 Pulse Ox 96 06/16/22 07:25 FiO2 Intake & Output 06/15/22 06/16/22 06/16/22 18:59 06:59 18:59 Intake Total 118 150 118 Output Total 600 700 Balance -482 -550 118 Weight 58.967 kg 58.967 kg Intake: Oral 118 150 118 Output: Urine 600 700 Other: Voiding Method Indwelling Catheter Indwelling Catheter # Bowel Movements 1 - Exam GENERAL DESCRIPTION: An elderly female lying in bed in no distress RESPIRATORY SYSTEM: Unlabored breathing , decreased breath sounds at bases HEART: S1 S2 regular rate and rhythm , ABDOMEN: Soft , no tenderness EXTREMITIES: No edema feet - Labs CBC & Chem 7: 06/15/22 09:54 06/15/22 09:54 Labs: Abnormal Lab Results - Last 24 Hours (Table) 06/15/22 06/15/22 06/15/22 Range/Units 09:54 09:54 09:54 RBC 3.71 L (3.80-5.40) m/uL Hgb 10.7 L D (11.4-16.0) gm/dL Hct 32.7 L (34.0-46.0) % Chloride 110 H (98-107) mmol/L BUN 18 H (7-17) mg/dL Glucose 104 H (74-99) mg/dL Albumin 3.2 L (3.5-5.0) g/dL Urine Appearance Cloudy H (Clear) Urine Protein Trace H (Negative) Ur Leukocyte Esterase Large H (Negative) Urine RBC 9 H (0-5) /hpf Urine WBC 97 H (0-5) /hpf Urine WBC Clumps Many H (None) /hpf Urine Mucus Rare H (None) /hpf Urine Yeast (Budding) Many H (None) /hpf Microbiology - Last 24 Hours (Table) 06/15/22 09:54 Urine Culture - Preliminary Urine,Catheterized Assessment and Plan (1) UTI (urinary tract infection) Current Visit: Yes Status: Acute Code(s): N39.0 - URINARY TRACT INFECTION, SITE NOT SPECIFIED SNOMED Code(s): 53674973 Plan: 1patient presented to hospital with mental status changes likely multifactorial with a positive urine likely secondary to catheter associated UTI as the patient chest x-ray was negative she is breathing comfortably room air abdomen was soft rectal examination and evidence of any cellulitis. 2Foley catheter has been changed per the nursing staff we will repeat a UA from the new catheter 3patient to have cefuroxime allergy that would limit the number of antibiotics safe to use. 4patient to continue with Unasyn and Diflucan while waiting for the culture to finalize. Time with Patient: Less than 30
[2022-06-17] MEDS: AMPICILLIN-SULBACTAM 3 GM in SODIUM CHLORIDE 0.9% 100 ML IVPB SCH ×3 (00:16→15:49)
--- NOTE | 2022-06-17 01:39 | PN ---
PROGRESS NOTE SUBJECTIVE: Emely Whiting came into the hospital for UTI, altered mental status, some dehydration. Continues on fluids. CT scan of the brain has been ordered. urine culture may or may not be infected. She has protein-calorie malnutrition. We are going to get Neurology's opinion. Refer Dr. Rivera for the UTIs, to keep her on Levaquin. OBJECTIVE: CARDIOVASCULAR: S1, S2. LUNGS: Clear. GI: Soft. CT scan of the head shows hydrocephalus, cerebral atrophy, chronic white matter disease, possibly some hydrocephalus may be contributing to her altered mental status. Wait for Neurology's opinion. Her blood pressure still remains low. Continue with IV fluids. ASSESSMENT: Catheter-associated urinary tract infection. Chest x-ray is negative. Repeat UA from a new catheter. She has cefuroxime allergy. She will use Unasyn and Diflucan. Awaiting for the final cultures. MMODL / IJN: [id number] /
[2022-06-17 01:56] LABS: Appearance,Urine Clear (Clear); Bilirubin,Urine Negative (Negative); Blood,Urine Negative (Negative); Color,Urine Light Yellow; Glucose,Urine (UA) Negative (Negative); Ketones,Urine Negative (Negative); Leukocyte Esterase,Urine Negative (Negative); Nitrite,Urine Negative (Negative); Protein,Urine Negative (Negative); Specific Gravity,Urine 1.005 (1.001-1.035); Urobilinogen,Urine <2.0 mg/dL (<2.0)
[2022-06-17] MEDS: PANTOPRAZOLE 40 MG TABLET PO SCH (06:23)
[2022-06-17] MEDS: LEVOTHYROXINE 50 MCG TAB PO SCH (06:23)
[2022-06-17] MEDS: FLUCONAZOLE 100 MG TAB PO SCH (09:32)
[2022-06-17] MEDS: MEMANTINE 5 MG TAB PO SCH ×2 (09:32→22:40)
[2022-06-17] MEDS: POTASSIUM CHLORIDE ER 20 MEQ TAB.ER PO SCH (09:32)
[2022-06-17] MEDS: MULTIVITAMINS, THERA 1 EACH TAB PO SCH (09:32)
[2022-06-17] MEDS: ASPIRIN 81 MG PO SCH (09:32)
[2022-06-17] MEDS: SENNOSIDES 8.6 MG TAB PO SCH (09:33)
[2022-06-17] MEDS: atenoloL 25 MG TAB PO SCH (09:33)
--- NOTE | 2022-06-17 09:48 | P.CNNES ---
History of Present Illness Consult date: 06/12/22 Requesting physician: Victor Hugo Zhong Reason for Consult: confusion History of Present Illness: This is an 87-year-old woman with likely underlying dementia/cognitive impairment could relate to Alzheimer's, recurrent urinary tract infection who presented emergency department because of confusion. She is known to our betty rology service for her underlying confusion. According to the ID team is seems the patient has underlying degenerative tract infection felt due to catheter associate UTI. According to the nurse or mentation and has improved compared to initial presentation. Her Kurtz catheter has been changed by the nursing staff according to the ID team's note. Of note patient was seen multiple times by our team and was last seen on 04/27/2022. There is questionable concern for normal pressure hydrocephalus. Patient had 2 MRI of the brain in April 2022 and per my colleague's note he felt the patient had dilation of ventricle system felt it could relate to normal atrophy changes of the cerebrum with proportion the dilation and less likely commuting hydrocephalus. Patient has atrophy changes of the medial temporal lobe bilaterally correlate for Alzheimer's. My colleague started her on Aricept 5 mg and recommended to go up to 10 mg. Patient has extensive workup in our facility from a neurologic perspective. Please refer to our note for further details. Some other workup during his hospital visit consisted of: TSH is 1.480. Sodium, AST ALT, creatinine, calcium are within normal limits. Urinalysis seen suspicious for underlying ureter tract infection on initial testing repeated 2 days after was negative. CT of the head is reported as cerebral atrophy and hydrocephalus. Chronic white matter disease. No change compared to old exam. No hemorrhage. Review of Systems Review of system: The 12 point system was reviewed and apparent positive and negative per HPI. 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 Past Anesthesia/Blood Transfusion Reactions: No Reported Reaction Past Psychological History: No Psychological Hx Reported Smoking Status: Unknown if ever smoked Past Alcohol Use History: None Reported Past Drug Use History: None Reported - Past Family History Father Additional Family Medical History / Comment(s): heart disease. Mother Additional Family Medical History / Comment(s): heart disease. Sister(s) Family Medical History: Cancer Additional Family Medical History / Comment(s): 3 SISTERS WITH BREAST CA Medications and Allergies Home Medications Medication Instructions Recorded Confirmed Type Levothyroxine Sodium [Synthroid] 50 mcg PO DAILY 04/01/17 06/15/22 History Multivitamins, Thera [Multivitamin 1 tab PO DAILY 11/02/19 06/15/22 History (formulary)] Omeprazole 40 mg PO DAILY 11/02/19 06/15/22 History Sennosides [Senokot] 8.6 mg PO DAILY 05/25/22 06/15/22 History atenoloL [Tenormin] 25 mg PO DAILY 05/25/22 06/15/22 History Potassium Chloride ER [K-Dur 20] 20 meq PO DAILY 90 Days #90 tab 05/31/22 06/15/22 Rx Aspirin EC [Ecotrin Low Dose] 81 mg PO DAILY 06/15/22 06/15/22 History Allergies Allergy/AdvReac Type Severity Reaction Status Date / Time cefuroxime Allergy Intermediate Hives Verified 06/15/22 10:44 Physical Examination - Vital Signs Vital Signs: Vital Signs Temp Pulse Resp BP Pulse Ox 06/17/22 07:00 97.7 F 85 17 118/66 98 06/17/22 00:23 97.8 F 85 16 114/67 96 06/16/22 20:12 96.5 F L 88 18 113/69 100 06/16/22 15:50 97.8 F 89 17 123/75 94 L Intake and Output 06/16/22 06/17/22 06/17/22 22:59 06:59 14:59 Intake Total 150 Output Total 700 Balance 150 -700 Intake: Oral 150 Output: Urine 700 Other: Voiding Method Indwelling Catheter GENERAL: The patient is lying in bed and is not in acute distress. CHEST: The heart rate is regular rate rhythm. No murmurs to auscultation. LUNG: Clear to auscultation bilaterally no wheezing noted throughout. Not labored breathing. ABDOMEN/GI: Bowel sounds present in all 4 quadrants. No tenderness to palpation throughout. NEUROLOGICAL: Higher mental function: The patient is awake, alert, oriented to self. She stated the month is May. Could not tell me place or year. She is able to follow simple commands. Able to name ring that is on her finger. Language is limited. No neglect. Cranial nerves: The pupils are round, equal and reactive to light. EOM is tracking throughout the room. No facial weakness. No dysarthria. Otherwise rest is limited. Motor: The strength is limited in assessing individual muscles. Is lifting uppers above gravity. Has old defect of right upper. Is wiggling toes. . Cerebellum: Unable to assess. Sensation: Unable to assess. Results - Laboratory Findings CBC and BMP: 06/15/22 09:54 06/15/22 09:54 Abnormal Lab Findings: Abnormal Labs 06/15/22 06/15/22 06/15/22 09:54 09:54 09:54 RBC 3.71 L Hgb 10.7 L D Hct 32.7 L Chloride 110 H BUN 18 H Glucose 104 H Albumin 3.2 L Urine Appearance Cloudy H Urine Protein Trace H Ur Leukocyte Esterase Large H Urine RBC 9 H Urine WBC 97 H Urine WBC Clumps Many H Urine Mucus Rare H Urine Yeast (Budding) Many H Assessment and Plan Assessment: Altered mental status due to her underlying urinary tract infection patient. As well confusion due to underlying dementia--mentation improved Acute UTI Likely underlying dementia (and felt possible Alzheiemer's) Recurrent UTI Plan: I ordered ammonia level, vitamin B12, folate. I have started her on Aricept 10mg qhs for her underlying dementia. Primary has started on the amantadine 5 mg 1 tablet twice a day. Otherwise, there is no additional workup needed otherwise. Patient's mentation as that improved ID team is on board We'll defer the rest of the medical measurement the primary team Patient can now follow up with a neurologist as an outpatient within 2 weeks If the labs come back normal that I have ordered above, then no additional workup since the patient's mentation is improving and had extensive work-up in 04/2022. Recommend the patient to follow-up with a neurologist as an outpatient. Dr. Dallas will start neurology service tomorrow a.m. if needed Time with Patient: Greater than 30
--- NOTE | 2022-06-17 21:34 | PN ---
PROGRESS NOTE SUBJECTIVE: Seen by Neurology who thinks hydrocephalus is not causing any affect on her, mainly her dementia. She remains on Aricept 10 mg at night and Namenda 5 mg b.i.d. per the recommendations. She is on hypertension medicines and she is on her Synthroid. Wait for urine cultures. Her altered mental status is fluctuant in and out. OBJECTIVE: VITAL SIGNS: Temperature 97.7, blood pressure 118/66, pulse is in the 80s, respiratory rate 16 to 18, 98 on room air. CARDIOVASCULAR: S1, S2. LUNGS: Clear. GI: Soft. HEMATOLOGY: Negative for Homans. PSYCH: Fair mood and affect. ASSESSMENT: Altered mental status, dementia, UTI, metabolic encephalopathy. Continue current treatments. She has dementia with severe DT and possibly hydrocephalus. Continue current treatments. Prognosis guarded. Wait for final urine cultures and antibiotics to be arranged, dementia medications as mentioned above. Prognosis guarded. MMODL / IJN: [id number] /
[2022-06-17] MEDS: DONEPEZIL 10 MG TAB PO SCH (22:40)
--- NOTE | 2022-06-17 23:09 | P.PN ---
Subjective Progress Note Date: 06/17/22 Principal diagnosis: Urinary tract infection Patient is 87 year female with a past medical history significant for recurrent urinary tract infection has been brought to the hospital for evaluation of mental status changes did have a positive UA concerning for UTI for the catheter was changed in the ER per the nursing staff. On today's evaluation of his 06/17/2022, the patient remains to be afebrile, patient denies any chest pain shortness of breath or cough no abdominal pain or diarrhea Objective - Vital Signs Vital signs: Vital Signs Temp 97.7 F 06/17/22 07:00 Pulse 85 06/17/22 07:00 Resp 17 06/17/22 07:00 BP 118/66 06/17/22 07:00 Pulse Ox 98 06/17/22 07:00 FiO2 Intake & Output 06/16/22 06/17/22 06/17/22 18:59 06:59 18:59 Intake Total 118 150 235 Output Total 400 700 Balance -282 -550 235 Intake: Oral 118 150 235 Output: Urine 400 700 Other: Voiding Method Indwelling Catheter Indwelling Catheter Indwelling Catheter - Exam GENERAL DESCRIPTION: An elderly female lying in bed in no distress RESPIRATORY SYSTEM: Unlabored breathing , decreased breath sounds at bases HEART: S1 S2 regular rate and rhythm , ABDOMEN: Soft , no tenderness EXTREMITIES: No edema feet - Labs CBC & Chem 7: 06/15/22 09:54 06/15/22 09:54 Labs: Microbiology - Last 24 Hours (Table) 06/15/22 10:35 Blood Culture - Preliminary Blood No Growth after 24 hours 06/15/22 10:50 Blood Culture - Preliminary Blood No Growth after 24 hours 06/15/22 09:54 Urine Culture - Final Urine,Catheterized Assessment and Plan (1) UTI (urinary tract infection) Current Visit: Yes Status: Acute Code(s): N39.0 - URINARY TRACT INFECTION, SITE NOT SPECIFIED SNOMED Code(s): 43403308 Plan: 1patient presented to hospital with mental status changes likely multifactorial with a positive urine likely secondary to catheter associated UTI as the patient chest x-ray was negative she is breathing comfortably room air abdomen was soft rectal examination and evidence of any cellulitis. 2Foley catheter has been changed per the nursing staff we will repeat a UA from the new catheter which is relatively negative 3patient to have cefuroxime allergy that would limit the number of antibiotics safe to use. 4patient to continue with Diflucan as culture grew yeast and discontinue Unasyn. Time with Patient: Less than 30
[2022-06-18] MEDS: PANTOPRAZOLE 40 MG TABLET PO SCH (05:50)
[2022-06-18] MEDS: LEVOTHYROXINE 50 MCG TAB PO SCH (05:50)
[2022-06-18] MEDS: POTASSIUM CHLORIDE ER 20 MEQ TAB.ER PO SCH (10:15)
[2022-06-18] MEDS: MULTIVITAMINS, THERA 1 EACH TAB PO SCH (10:15)
[2022-06-18] MEDS: MEMANTINE 5 MG TAB PO SCH ×2 (10:16→20:40)
[2022-06-18] MEDS: ASPIRIN 81 MG PO SCH (10:16)
[2022-06-18] MEDS: atenoloL 25 MG TAB PO SCH (10:16)
[2022-06-18] MEDS: FLUCONAZOLE 100 MG TAB PO SCH (10:16)
[2022-06-18] MEDS: SENNOSIDES 8.6 MG TAB PO SCH (10:16)
[2022-06-18 12:58] VITALS: BMI 22.3
[2022-06-18] MEDS: DONEPEZIL 10 MG TAB PO SCH (20:40)
--- NOTE | 2022-06-18 22:43 | P.PN ---
Subjective Progress Note Date: 06/18/22 Principal diagnosis: Urinary tract infection Patient is 87 year female with a past medical history significant for recurrent urinary tract infection has been brought to the hospital for evaluation of mental status changes did have a positive UA concerning for UTI for the catheter was changed in the ER per the nursing staff. On today's evaluation of his 06/18/2022, the patient continues to be afebrile, patient sleepy but arousable, the patient denies any chest pain shortness of breath or cough no abdominal pain or diarrhea Objective - Vital Signs Vital signs: Vital Signs Temp 97.6 F 06/18/22 07:37 Pulse 64 06/18/22 07:37 Resp 17 06/18/22 07:37 BP 110/65 06/18/22 07:37 Pulse Ox 96 06/18/22 07:37 FiO2 Intake & Output 06/17/22 06/18/22 06/18/22 18:59 06:59 18:59 Intake Total 475 75 118 Output Total 700 600 Balance -225 -525 118 Intake: Oral 475 75 118 Output: Urine 700 600 Other: Voiding Method Indwelling Catheter Indwelling Catheter Incontinent Indwelling Catheter # Bowel Movements 1 1 - Exam GENERAL DESCRIPTION: An elderly female lying in bed in no distress RESPIRATORY SYSTEM: Unlabored breathing , decreased breath sounds at bases HEART: S1 S2 regular rate and rhythm , ABDOMEN: Soft , no tenderness EXTREMITIES: No edema feet - Labs CBC & Chem 7: 06/15/22 09:54 06/15/22 09:54 Labs: Microbiology - Last 24 Hours (Table) 06/15/22 10:50 Blood Culture - Preliminary Blood No Growth after 48 hours 06/15/22 10:35 Blood Culture - Preliminary Blood No Growth after 48 hours 06/15/22 09:54 Urine Culture - Preliminary Urine,Catheterized Yeast species Assessment and Plan (1) UTI (urinary tract infection) Current Visit: Yes Status: Acute Code(s): N39.0 - URINARY TRACT INFECTION, SITE NOT SPECIFIED SNOMED Code(s): 86032610 Plan: 1patient presented to hospital with mental status changes likely multifactorial with a positive urine likely secondary to catheter associated UTI as the patient chest x-ray was negative she is breathing comfortably room air abdomen was soft rectal examination and evidence of any cellulitis. 2Foley catheter has been changed per the nursing staff we will repeat a UA from the new catheter which is relatively negative 3patient to have cefuroxime allergy that would limit the number of antibiotics safe to use. 4patient to continue with Diflucan as culture grew yeast x 3 days to finish a course of therapy Time with Patient: Less than 30
[2022-06-19] MEDS: LEVOTHYROXINE 50 MCG TAB PO SCH (06:05)
[2022-06-19] MEDS: PANTOPRAZOLE 40 MG TABLET PO SCH (06:05)
[2022-06-19] MEDS: MULTIVITAMINS, THERA 1 EACH TAB PO SCH (08:55)
[2022-06-19] MEDS: FLUCONAZOLE 100 MG TAB PO SCH (08:55)
[2022-06-19] MEDS: atenoloL 25 MG TAB PO SCH ×2 (08:55→08:56)
[2022-06-19] MEDS: SENNOSIDES 8.6 MG TAB PO SCH (08:55)
[2022-06-19] MEDS: ASPIRIN 81 MG PO SCH (08:55)
[2022-06-19] MEDS: POTASSIUM CHLORIDE ER 20 MEQ TAB.ER PO SCH (08:55)
[2022-06-19] MEDS: MEMANTINE 5 MG TAB PO SCH (08:55)
[2022-06-19] MEDS ORDERED: FLUDROCORTISONE 0.1 MG TAB PO SCH (09:00)
[2022-06-19] MEDS ORDERED: acetaZOLAMIDE 250 MG TAB PO SCH (13:30)
[2022-06-19 16:08] VITALS: BP 98/62; PULSE 92; RESP 16; TEMP 97.5
--- NOTE | 2022-06-20 14:29 | P.PN ---
Subjective Progress Note Date: 06/19/22 Principal diagnosis: Urinary tract infection Patient is 87 year old female with a past medical history significant for recurrent urinary tract infection has been brought to the hospital for evaluation of mental status changes did have a positive UA concerning for UTI fo r the catheter was changed in the ER per the nursing staff. On today's evaluation of his 06/19/2022, the patient remains to be afebrile, patient is more awake and alert today, the patient denies any chest pain shortness of breath or cough no abdominal pain and no diarrhea has been reported Objective - Vital Signs Vital signs: Vital Signs Temp 97.4 F L 06/19/22 07:44 Pulse 81 06/19/22 07:44 Resp 17 06/19/22 07:44 BP 105/61 06/19/22 07:44 Pulse Ox 98 06/19/22 07:44 FiO2 Intake & Output 06/18/22 06/19/22 06/19/22 18:59 06:59 18:59 Intake Total 118 100 Output Total 750 200 Balance -632 -100 Weight 58.967 kg Intake: Oral 118 100 Output: Urine 750 200 Other: Voiding Method Incontinent Indwelling Catheter Indwelling Catheter Indwelling Catheter # Bowel Movements 1 1 - Exam GENERAL DESCRIPTION: An elderly female lying in bed in no distress RESPIRATORY SYSTEM: Unlabored breathing , decreased breath sounds at bases HEART: S1 S2 regular rate and rhythm , ABDOMEN: Soft , no tenderness EXTREMITIES: No edema feet - Labs CBC & Chem 7: 06/15/22 09:54 06/15/22 09:54 Labs: Microbiology - Last 24 Hours (Table) 06/15/22 10:35 Blood Culture - Preliminary Blood No Growth after 72 hours 06/15/22 10:50 Blood Culture - Preliminary Blood No Growth after 72 hours 06/15/22 09:54 Urine Culture - Preliminary Urine,Catheterized Sherita glabrata Assessment and Plan (1) UTI (urinary tract infection) Status: Acute Code(s): N39.0 - URINARY TRACT INFECTION, SITE NOT SPECIFIED SNOMED Code(s): 08334417 Plan: 1patient presented to hospital with mental status changes likely multifactorial with a positive urine likely secondary to catheter associated UTI as the patient chest x-ray was negative she is breathing comfortably room air abdomen was soft rectal examination and evidence of any cellulitis. 2Foley catheter has been changed per the nursing staff we will repeat a UA from the new catheter which is relatively negative 3 patient to continue with Diflucan as culture grew yeast x 2 more days to finish a course of therapy and close outpatient follow-up Time with Patient: Less than 30
--- NOTE | 2022-07-01 17:00 | P.PN ---
Subjective Progress Note Date: 06/18/22 Patient initially seen by Dr. Best Piedra. Please refer to his note for details. Patient has history of advanced dementia. Patient is known to me from previous admission to the hospital. Patient had extensive testing including MRI of the brain in April 2022, comes with recurrent UTI. Patient has likely an acute UTI. At present patient is laying comfortably in the bed. When I asked how she was f eeling, patient replied "like I'm always doing". Patient denies headache. Patient is pleasantly confused. Objective - Vital Signs Vital signs: Vital Signs Temp 97.5 F L 06/18/22 15:00 Pulse 79 06/18/22 15:00 Resp 17 06/18/22 15:00 BP 107/63 06/18/22 15:00 Pulse Ox 98 06/18/22 15:00 FiO2 Intake & Output 06/18/22 06/18/22 06/19/22 06:59 18:59 06:59 Intake Total 75 118 Output Total 600 750 Balance -525 -632 Weight 58.967 kg Intake: Oral 75 118 Output: Urine 600 750 Other: Voiding Method Indwelling Catheter Incontinent Indwelling Catheter # Bowel Movements 1 1 - Exam Patient is alert and awake. She could not tell the current month, or the year, city. She denies headache. She knows her name. Speech and language functions are normal. - Labs CBC & Chem 7: 06/15/22 09:54 06/15/22 09:54 Labs: Microbiology - Last 24 Hours (Table) 06/15/22 10:35 Blood Culture - Preliminary Blood No Growth after 72 hours 06/15/22 10:50 Blood Culture - Preliminary Blood No Growth after 72 hours 06/15/22 09:54 Urine Culture - Preliminary Urine,Catheterized Sherita glabrata Assessment and Plan Assessment: Altered mental status due to her underlying urinary tract infection patient. 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 Ammonia <9 , vitamin B12 344, folate 23.10. Dr. Piedra has started her on Aricept 10mg qhs for her underlying dementia. Primary has started on the Namenda 5 mg 1 tablet twice a day. Otherwise, there is no additional workup needed otherwise. Patient's mentation has improved ID team is on board We'll defer the rest of the medical measurement the primary team Patient can now follow up with a neurologist as an outpatient within 2 weeks. Neurologically clear.
--- NOTE | 2022-07-16 01:32 | HP ---
HISTORY AND PHYSICAL HISTORY OF PRESENT ILLNESS: An 87-year-old white female came to the emergency room for altered mental status. She is unable to give history. She has altered mental status. She was found to have drug- resistant UTI. No history of any fevers. No trauma or difficulty breathing. HOME MEDICINES: 1. Aspirin 81 mg daily. 2. Tenormin 25 daily. 3. Senokot 8.6 daily. 4. Omeprazole 40 daily. 5. Synthroid 50 mcg daily. 6. Multivitamin daily. 7. Potassium chloride 20 mEq daily. ALLERGIES: Cefuroxime. REVIEW OF SYSTEMS: A 14-point review of systems otherwise negative except as mentioned in the HPI. PAST MEDICAL HISTORY: Cancer, heart failure, COPD, dementia, GERD, hypothyroidism. SURGICAL HISTORY: Breast surgery, orthopedic surgery, right mastectomy, right ankle fracture, bilateral cataract removal. FAMILY HISTORY: Father, heart disease. Mother, heart disease. Sister, breast cancer. PHYSICAL EXAMINATION: VITAL SIGNS: Stable. Afebrile. Temp 97.8, pulse 87 to 93, respiratory rate 16 to 18, blood pressure 98 to 110 over 50s to 60s. CARDIOVASCULAR: S1, S2. LUNGS: Clear. GI: Soft. HEMATOLOGY: Negative for Homans. PSYCH: Fair mood and affect. NEUROLOGIC: Alert and oriented x3. ASSESSMENT: 1. Metabolic encephalopathy. 2. Urinary tract infection, drug-resistant. 3. Acute on chronic anemia. PROGNOSIS: Guarded. FOLLOWUP: Follow up in next 24 hours. Neurology consult. Fluid rehydration, IV antibiotics. Prognosis is guarded. MMODL / IJN: [id number] /
--- NOTE | 2022-07-16 04:57 | DS ---
DISCHARGE SUMMARY MEDICATIONS: 1. Synthroid 50 mcg daily. 2. Omeprazole 40 mg daily. 3. Multivitamin daily. 4. Senokot daily. 5. Tenormin 25 daily. 6. Potassium chloride 20 mEq daily. 7. Ecotrin 81 daily. 8. Aricept 10 mg daily. 9. Diamox 500 mg daily. 10.Diflucan 100 mg daily for 5 days. 11.Namenda 5 mg b.i.d. CONDITION: Stable. PROGNOSIS: Guarded. ACTIVITY: Ambulate as tolerated. HOSPITAL COURSE: White female who came in with metabolic encephalopathy, toxic encephalopathy secondary to UTI, dementia, dehydration, prerenal azotemia. The patient responds to rehydration and IV antibiotics. Back to her baseline. She is eating and drinking on discharge. She will follow up in the next 24 to 48 hours as an outpatient. Follow up with home nursing care. Condition stable. Prognosis guarded. MMODL / MIKEYN: [id number] /
== END 2022-06-19 16:40 ==
LOC: EC 09:34 → 6NMEDSUR 13:27
PROVIDERS: ADMIT Family Medicine; ATTEND Family Medicine
DX: N39.0 Urinary tract infection, site not specified (principal); Z88.1 Allergy status to other antibiotic agents; J44.9 Chronic obstructive pulmonary disease, unspecified; F03.90 Unspecified dementia, unspecified severity, without behavioral disturbance, psychotic disturbance, mood disturbance, and anxiety; I50.9 Heart failure, unspecified; K21.9 Gastro-esophageal reflux disease without esophagitis; Z85.3 Personal history of malignant neoplasm of breast; E07.9 Disorder of thyroid, unspecified; K44.9 Diaphragmatic hernia without obstruction or gangrene; Z85.830 Personal history of malignant neoplasm of bone; Z86.14 Personal history of Methicillin resistant Staphylococcus aureus infection; Z90.10 Acquired absence of unspecified breast and nipple; Z90.11 Acquired absence of right breast and nipple; Z98.42 Cataract extraction status, left eye; Z98.41 Cataract extraction status, right eye; Z82.49 Family history of ischemic heart disease and other diseases of the circulatory system; Z80.3 Family history of malignant neoplasm of breast; Z79.890 Hormone replacement therapy; Z79.82 Long term (current) use of aspirin; Z79.899 Other long term (current) drug therapy
CPT/HCPCS: 96376; 96361 ×3; 96365; 96366; 99285; 51798; 36415; 97162; 80053; 84443; 82607; 82140; 82746; 83605; 85025; 81003; 81001; 87040; 87086; 71046; 70450; G0378 ×5; J0295 ×3

== ENCOUNTER 2022-06-29 19:51 | Emergency (ER) | payer MEDICARE ==
[2022-06-29 20:22] VITALS: TEMP 98.5
--- NOTE | 2022-06-29 20:31 | ED ---
Female Urogenital HPI - General Chief complaint: Urogenital Stated complaint: Urinary Retention Time Seen by Provider: 06/29/22 19:55 Source: EMS Mode of arrival: EMS Limitations: altered mental status, physical limitation - History of Present Illness Initial comments: Patient is a 87-year-old female presents to the emergency department for urinary retention. Patient is alert and oriented 1 during my evaluation. She has history of dementia baseline is unknown. Patient comes from her [facility] EMS gives all the history. Apparently caregiver was concerned for blockage in good catheter. Patient has been in the emergency department multiple times for altered mental status secondary to urinary tract infections. She was recently admitted in May for UTI with weakness. There is no history of any fevers, recent falls. Patient denies any pain, chills, chest pain, shortness of breath, abdominal pain, nausea, vomiting, burning with urination, trouble urinating, blood in the urine. - Related Data Home Medications Medication Instructions Recorded Confirmed Levothyroxine Sodium [Synthroid] 50 mcg PO DAILY 04/01/17 06/29/22 Multivitamins, Thera [Multivitamin 1 tab PO DAILY 11/02/19 06/29/22 (formulary)] Omeprazole 40 mg PO DAILY 11/02/19 06/29/22 Sennosides [Senokot] 8.6 mg PO DAILY PRN 05/25/22 06/29/22 atenoloL [Tenormin] 25 mg PO DAILY 05/25/22 06/29/22 Aspirin EC [Ecotrin Low Dose] 81 mg PO DAILY 06/15/22 06/29/22 Ipratropium-Albuterol Nebulize 3 ml INHALATION RT-BID 06/29/22 06/29/22 [Duoneb 0.5 mg-3 mg/3 ml Soln] Ipratropium-Albuterol Nebulize 3 ml INHALATION RT-QID PRN 06/29/22 06/29/22 [Duoneb 0.5 mg-3 mg/3 ml Soln] Previous Rx's Medication Instructions Recorded Potassium Chloride ER [K-Dur 20] 20 meq PO DAILY 90 Days #90 tab 05/31/22 Donepezil [Aricept] 10 mg PO HS 90 Days #90 tab 06/19/22 Memantine [Namenda] 5 mg PO BID 90 Days #180 tab 06/19/22 acetaZOLAMIDE [Diamox] 500 mg PO DAILY 90 Days #90 tab 06/19/22 Allergies Allergy/AdvReac Type Severity Reaction Status Date / Time cefuroxime Allergy Intermediate Hives Verified 06/29/22 22:09 Review of Systems ROS Statement: Those systems with pertinent positive or pertinent negative responses have been documented in the HPI. ROS Other: All systems not noted in ROS Statement are negative. 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 Past Anesthesia/Blood Transfusion Reactions: No Reported Reaction Past Psychological History: No Psychological Hx Reported Smoking Status: Unknown if ever smoked Past Alcohol Use History: None Reported Past Drug Use History: None Reported - Past Family History Father Additional Family Medical History / Comment(s): heart disease. Mother Additional Family Medical History / Comment(s): heart disease. Sister(s) Family Medical History: Cancer Additional Family Medical History / Comment(s): 3 SISTERS WITH BREAST CA General Exam Limitations: altered mental status, physical limitation General appearance: alert, in no apparent distress ENT exam: Present: normal exam, mucous membranes moist Respiratory exam: Present: normal lung sounds bilaterally. Absent: respiratory distress, wheezes, rales, rhonchi, stridor Cardiovascular Exam: Present: regular rate, normal rhythm, normal heart sounds. Absent: systolic murmur, diastolic murmur, rubs, gallop, clicks GI/Abdominal exam: Present: soft, normal bowel sounds. Absent: distended, tenderness, guarding, rebound, rigid Neurological exam: Absent: alert, oriented X3 Skin exam: Present: warm, dry, intact, normal color. Absent: rash Course Vital Signs 06/29/22 06/29/22 06/30/22 19:57 20:22 00:00 Temperature 98.5 F Pulse Rate 97 91 Respiratory 18 17 Rate Blood Pressure 120/64 125/66 O2 Sat by Pulse 97 100 Oximetry Medical Decision Making - Medical Decision Making Was pt. sent in by a medical professional or institution ([facility], [employer], urgent care, hospital, or [facility]...) When possible be specific @ -[No] Did you speak to anyone other than the patient for history (EMS, parent, family, police, friend...)? What history was obtained from this source @ -[No] Did you review nursing and triage notes (agree or disagree)? Why? @ -[I reviewed and agree with nursing and triage notes] Were old charts reviewed (outside hosp., previous admission, EMS record, old EKG, old radiological studies, urgent care reports/EKG's, [facility] records)? Report findings @ -Yes, reviewed recent infectious disease note. UTI treated with Levaquin due to cephalosporin ALLERGY Differential Diagnosis (chest pain, altered mental status, abdominal pain women, abdominal pain men, vaginal bleeding, weakness, fever, dyspnea, syncope, headache, dizziness, GI bleed, back pain, seizure, CVA, palpatations, mental h ealth)? @ -UTI, sepsis, urinary retention EKG interpreted by me (3pts min.). @ -[As above] X-rays interpreted by me (1pt min.). @ -[None done] CT interpreted by me (1pt min.). @ -[None done] U/S interpreted by me (1pt. min.). @ -[None done] What testing was considered but not performed or refused? (CT, X-rays, U/S, labs)? Why? @ -[None] What meds were considered but not given or refused? Why? @ -[None] Did you discuss the management of the patient with other professionals (professionals i.e. [facility], [employer] REPRESENTATIVES, lab, RT, psych nurse, social science analyst, assistant clinical director, teacher, correction officer, oil field caser)? Give summary @ -[No] Was smoking cessation discussed for >3mins.? @ -[No] Was critical care preformed (if so, how long)? @ -[No] Were there social determinants of health that impacted care today? How? (Homelessness, low income, unemployed, alcoholism, drug addiction, transportation, low edu. Level, literacy, decrease access to med. care, longterm, rehab)? @ -[No] Was there de-escalation of care discussed even if they declined (Discuss DNR or withdrawal of care, Hospice)? DNR status @ -[No] What co-morbidities impacted this encounter? (DM, HTN, Smoking, COPD, CAD, Cancer, CVA, ARF, Chemo, Hep., AIDS, mental health diagnosis, sleep apnea, morbid obesity)? @ -[None] Was patient admitted / discharged? Hospital course, mention meds given and route, prescriptions, significant lab abnormalities, going to OR and other pertinent info. @ -Patient presenting for possible urinary retention. Good catheter was changed successfully. Patient is afebrile resting comfortably. Laboratory studies obtained. There is no leukocytosis. There is metabolic acidosis, CO2 at 12, anion gap at 13. Lactic is normal. Urinalysis is concerning for infection. Patient given fluid bolus and antibiotics. Patient continued to be hemodynamically stable during her emergency stay. Patient has chronic urinary tract infections and she is asymptomatic. Will await culture for further treatment. Patient discharged in stable condition. Undiagnosed new problem with uncertain prognosis? @ -[No] Drug Therapy requiring intensive monitoring for toxicity (Heparin, Nitro, Insulin, Cardizem)? @ -[No] Were any procedures done? @ -[No] Diagnosis/symptom? @ -good catheter problem Acute, or Chronic, or Acute on Chronic? @ -acute Uncomplicated (without systemic symptoms) or Complicated (systemic symptoms)? @ -uncomplicated Side effects of treatment? @ -[No] Exacerbation, Progression, or Severe Exacerbation? @ -[No] Poses a threat to life or bodily function? How? (Chest pain, [place], [place], pneumonia, PE, COPD, DKA, ARF, appy, cholecystitis, CVA, Diverticulitis, Homicidal, Suici rao, threat to staff... and all critical care pts) @ -[No] Dr. Fernandez is my attending - Lab Data Result diagrams: 06/29/22 20:34 06/29/22 21:55 Lab Results 06/29/22 06/29/22 06/29/22 Range/Units 20:34 20:34 21:22 WBC 8.9 (3.8-10.6) k/uL RBC 3.94 (3.80-5.40) m/uL Hgb 11.2 L (11.4-16.0) gm/dL Hct 34.5 (34.0-46.0) % MCV 87.6 (80.0-100.0) fL MCH 28.4 (25.0-35.0) pg MCHC 32.4 (31.0-37.0) g/dL RDW 15.7 H (11.5-15.5) % Plt Count 426 (150-450) k/uL MPV 7.9 Neutrophils % 69 % Lymphocytes % 19 % Monocytes % 6 % Eosinophils % 3 % Basophils % 1 % Neutrophils # 6.1 (1.3-7.7) k/uL Lymphocytes # 1.7 (1.0-4.8) k/uL Monocytes # 0.5 (0-1.0) k/uL Eosinophils # 0.3 (0-0.7) k/uL Basophils # 0.1 (0-0.2) k/uL Hypochromasia Slight Sodium 139 (137-145) mmol/L Potassium 4.6 (3.5-5.1) mmol/L Chloride 114 H (98-107) mmol/L Carbon Dioxide 12 L (22-30) mmol/L Anion Gap 13 mmol/L BUN 27 H (7-17) mg/dL Creatinine 0.94 (0.52-1.04) mg/dL Est GFR (CKD-EPI)AfAm 62 (>60 ml/min/1.73 sqM) Est GFR (CKD-EPI)NonAf 54 (>60 ml/min/1.73 sqM) Glucose 142 H (74-99) mg/dL Plasma Lactic Acid Teofilo (0.7-2.0) mmol/L Calcium 8.8 (8.4-10.2) mg/dL Total Bilirubin 0.3 (0.2-1.3) mg/dL AST 21 (14-36) U/L ALT 16 (4-34) U/L Alkaline Phosphatase 85 (38-126) U/L Total Protein 7.7 (6.3-8.2) g/dL Albumin 3.6 (3.5-5.0) g/dL Urine Color Yellow Urine Appearance Turbid H (Clear) Urine pH 7.5 (5.0-8.0) Ur Specific [place] 1.019 (1.001-1.035) Urine Protein 3+ H (Negative) Urine Glucose (UA) Negative (Negative) Urine Ketones Negative (Negative) Urine Blood Large H (Negative) Urine Nitrite Negative (Negative) Urine Bilirubin Negative (Negative) Urine Urobilinogen <2.0 (<2.0) mg/dL Ur Leukocyte Esterase Large H (Negative) Urine RBC >182 H (0-5) /hpf Urine WBC >182 H (0-5) /hpf Urine WBC Clumps Many H (None) /hpf Urine Bacteria Moderate H (None) /hpf Urine Mucus Occasional H (None) /hpf 06/29/22 06/29/22 Range/Units 21:55 23:56 WBC (3.8-10.6) k/uL RBC (3.80-5.40) m/uL Hgb (11.4-16.0) gm/dL Hct (34.0-46.0) % MCV (80.0-100.0) fL MCH (25.0-35.0) pg MCHC (31.0-37.0) g/dL RDW (11.5-15.5) % Plt Count (150-450) k/uL MPV Neutrophils % % Lymphocytes % % Monocytes % % Eosinophils % % Basophils % % Neutrophils # (1.3-7.7) k/uL Lymphocytes # (1.0-4.8) k/uL Monocytes # (0-1.0) k/uL Eosinophils # (0-0.7) k/uL Basophils # (0-0.2) k/uL Hypochromasia Sodium 139 (137-145) mmol/L Potassium 4.3 (3.5-5.1) mmol/L Chloride 115 H (98-107) mmol/L Carbon Dioxide 13 L (22-30) mmol/L Anion Gap 11 mmol/L BUN 27 H (7-17) mg/dL Creatinine 0.97 (0.52-1.04) mg/dL Est GFR (CKD-EPI)AfAm 60 (>60 ml/min/1.73 sqM) Est GFR (CKD-EPI)NonAf 52 (>60 ml/min/1.73 sqM) Glucose 113 H (74-99) mg/dL Plasma Lactic Acid Teofilo 1.0 (0.7-2.0) mmol/L Calcium 8.9 (8.4-10.2) mg/dL Total Bilirubin (0.2-1.3) mg/dL AST (14-36) U/L ALT (4-34) U/L Alkaline Phosphatase (38-126) U/L Total Protein (6.3-8.2) g/dL Albumin (3.5-5.0) g/dL Urine Color Urine Appearance (Clear) Urine pH (5.0-8.0) Ur Specific [place] (1.001-1.035) Urine Protein (Negative) Urine Glucose (UA) (Negative) Urine Ketones (Negative) Urine Blood (Negative) Urine Nitrite (Negative) Urine Bilirubin (Negative) Urine Urobilinogen (<2.0) mg/dL Ur Leukocyte Esterase (Negative) Urine RBC (0-5) /hpf Urine WBC (0-5) /hpf Urine WBC Clumps (None) /hpf Urine Bacteria (None) /hpf Urine Mucus (None) /hpf Disposition Clinical Impression: Good catheter problem Disposition: HOME SELF-CARE Condition: Good Instructions (If sedation given, give patient instructions): Urinary Tract Infection in Women (ED), Good Catheter Placement and Care (ED), How to Change a Catheter Drainage Bag (DC) Additional Instructions: Antibiotic treatment is pending, will await culture. Return to the emergency Department if patient experiences new, concerning, or worsening symptoms. Is patient prescribed a controlled substance at d/c from ED?: No Referrals: Victor Hugo Zhong MD [Primary Care Provider] - 1-2 days Time of Disposition: 00:10
[2022-06-29 21:02] LABS: Basophils # (A) 0.1 k/uL (0-0.2); Basophils % (A) 1 %; Eosinophils # (A) 0.3 k/uL (0-0.7); Eosinophils % (A) 3 %; HCT 34.5 % (34.0-46.0); HGB 11.2 gm/dL (11.4-16.0); Hypochromasia Slight; Lymphocytes # (A) 1.7 k/uL (1.0-4.8); Lymphocytes % (A) 19 %; MCH 28.4 pg (25.0-35.0); MCHC 32.4 g/dL (31.0-37.0); MCV 87.6 fL (80.0-100.0); Mean Platelet Volume 7.9; Monocytes # (A) 0.5 k/uL (0-1.0); Monocytes % (A) 6 %; Neutrophils # (A) 6.1 k/uL (1.3-7.7); Neutrophils % (A) 69 %; Platelet Count 426 k/uL (150-450); RBC 3.94 m/uL (3.80-5.40); RDW 15.7 % (11.5-15.5); WBC 8.9 k/uL (3.8-10.6)
[2022-06-29 21:11] LABS: Albumin 3.6 g/dL (3.5-5.0); Calcium 8.8 mg/dL (8.4-10.2); Potassium 4.6 mmol/L (3.5-5.1); Total Bilirubin 0.3 mg/dL (0.2-1.3); Total Protein 7.7 g/dL (6.3-8.2)
--- NOTE | 2022-06-29 21:15 | XR ---
EXAMINATION TYPE: XR chest 2V DATE OF EXAM: 06/29/2022 COMPARISON: 06/15/2022 HISTORY: Altered mental status TECHNIQUE: 2 views FINDINGS: There is no heart failure nor confluent pneumonic infiltrate. Thoracic aorta is atheromatou s. No pleural effusion. There are no hilar masses. There is some osteopenia. IMPRESSION: Atheromatous aorta. No active cardiopulmonary disease. No change
[2022-06-29] MEDS ORDERED: SODIUM CHLORIDE 0.9% 500 ML 500 ML IV ONE (21:42)
[2022-06-29 21:58] LABS: Appearance,Urine Turbid (Clear); Bacteria,Urine Moderate /hpf; Bilirubin,Urine Negative (Negative); Blood,Urine Large (Negative); Color,Urine Yellow; Glucose,Urine (UA) Negative (Negative); Ketones,Urine Negative (Negative); Leukocyte Esterase,Urine Large (Negative); Mucus,Urine Occasional /hpf; Nitrite,Urine Negative (Negative); PH, Urine 7.5 (5.0-8.0); Protein,Urine 3+ (Negative); RBC,Urine >182 /hpf (0-5); Specific Gravity,Urine 1.019 (1.001-1.035); Urobilinogen,Urine <2.0 mg/dL (<2.0); WBC,Urine >182 /hpf (0-5)
[2022-06-29] MEDS ORDERED: LEVOFLOXACIN 750MG-D5W PMX 750 MG in DEXTROSE/WATER 1 150ML.BAG IVPB STA (22:24)
[2022-06-29 23:25] LABS: Calcium 8.9 mg/dL (8.4-10.2); Potassium 4.3 mmol/L (3.5-5.1)
[2022-06-30 00:01] VITALS: BP 125/66; PULSE 91; RESP 17
== END 2022-06-30 01:35 | disposition home or self-care (01) ==
LOC: EC 19:51
DX: T83.098A Other mechanical complication of other urinary catheter, initial encounter (principal); I50.9 Heart failure, unspecified; J44.9 Chronic obstructive pulmonary disease, unspecified; K21.9 Gastro-esophageal reflux disease without esophagitis; E07.9 Disorder of thyroid, unspecified; Z79.890 Hormone replacement therapy; Z79.899 Other long term (current) drug therapy; Z79.82 Long term (current) use of aspirin; Z88.1 Allergy status to other antibiotic agents
CPT/HCPCS: 36415; 93005; 80053; 80048; 83605; 85025; 81001; 87086; 87077; 87186; 71046; 99285; 96365; 96366; 96361; 51702; J1956

== ENCOUNTER 2022-07-03 18:21 | Inpatient (IN) | payer MEDICARE ==
[2022-07-03] MEDS ORDERED: SODIUM CHLORIDE 0.9% 1,000 ML IV STA (18:47)
--- NOTE | 2022-07-03 18:47 | ED ---
Altered Mental Status HPI - General Chief Complaint: Altered Mental Status Stated Complaint: Possible sepsis Time Seen by Provider: 07/03/22 18:47 Source: patient, EMS, RN notes reviewed, old records reviewed Mode of arrival: EMS Limitations: altered mental status, physical limitation - History of Present Illness Initial Comments: This is a 87-year-old female to the emergency department for evaluation patient presents today for evaluation of weakness persistent weakness no travel history sick contacts or fevers no cough or congestion. Patient states here for evaluation regards to persistent weakness decreased responsiveness and likely urinary tract infection MD Complaint: altered mental status, decreased responsiveness, weakness -: days(s) Severity: moderate Consistency of Symptoms: waxing and waning, getting worse Associated Symptoms: denies other symptoms Treatments Prior to Arrival: IV fluid - Related Data Home Medications Medication Instructions Recorded Confirmed Levothyroxine Sodium [Synthroid] 50 mcg PO DAILY 04/01/17 07/03/22 Multivitamins, Thera [Multivitamin 1 tab PO DAILY 11/02/19 07/03/22 (formulary)] Omeprazole 40 mg PO DAILY 11/02/19 07/03/22 Sennosides [Senokot] 8.6 mg PO DAILY PRN 05/25/22 07/03/22 Aspirin EC [Ecotrin Low Dose] 81 mg PO DAILY 06/15/22 07/03/22 Ipratropium-Albuterol Nebulize 3 ml INHALATION RT-BID 06/29/22 07/03/22 [Duoneb 0.5 mg-3 mg/3 ml Soln] Ipratropium-Albuterol Nebulize 3 ml INHALATION RT-QID PRN 06/29/22 07/03/22 [Duoneb 0.5 mg-3 mg/3 ml Soln] Previous Rx's Medication Instructions Recorded Potassium Chloride ER [K-Dur 20] 20 meq PO DAILY 90 Days #90 tab 05/31/22 Donepezil [Aricept] 10 mg PO HS 90 Days #90 tab 06/19/22 Memantine [Namenda] 5 mg PO BID 90 Days #180 tab 06/19/22 Allergies Allergy/AdvReac Type Severity Reaction Status Date / Time cefuroxime Allergy Intermediate Hives Verified 07/03/22 19:11 Review of Systems ROS Statement: Those systems with pertinent positive or pertinent negative responses have been documented in the HPI. ROS Other: All systems not noted in ROS Statement are negative. 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 Past Anesthesia/Blood Transfusion Reactions: No Reported Reaction Past Psychological History: No Psychological Hx Reported Smoking Status: Unknown if ever smoked Past Alcohol Use History: None Reported Past Drug Use History: None Reported - Past Family History Father Additional Family Medical History / Comment(s): heart disease. Mother Additional Family Medical History / Comment(s): heart disease. Sister(s) Family Medical History: Cancer Additional Family Medical History / Comment(s): 3 SISTERS WITH BREAST CA General Exam Limitations: no limitations General appearance: alert, in no apparent distress Head exam: Present: atraumatic, normocephalic, normal inspection Eye exam: Present: normal appearance, PERRL, EOMI. Absent: scleral icterus, conjunctival injection, periorbital swelling ENT exam: Present: normal exam, mucous membranes moist Neck exam: Present: normal inspection. Absent: tenderness, meningismus, lymphadenopathy Respiratory exam: Present: normal lung sounds bilaterally. Absent: respiratory distress, wheezes, rales, rhonchi, stridor Cardiovascular Exam: Present: regular rate, normal rhythm, normal heart sounds. Absent: systolic murmur, diastolic murmur, rubs, gallop, clicks GI/Abdominal exam: Present: soft, normal bowel sounds. Absent: distended, tenderness, guarding, rebound, rigid Extremities exam: Present: normal inspection, full ROM, normal capillary refill. Absent: tenderness, pedal edema, joint swelling, calf tenderness Back exam: Present: normal inspection Neurological exam: Present: alert, oriented X3, CN II-XII intact Psychiatric exam: Present: normal affect, normal mood Skin exam: Present: warm, dry, intact, normal color. Absent: rash Course Vital Signs 07/03/22 07/03/22 18:34 19:41 Temperature 98.3 F Pulse Rate 94 89 Respiratory 18 16 Rate Blood Pressure 122/69 122/69 O2 Sat by Pulse 92 L 99 Oximetry - Reevaluation(s) Reevaluation #1: 07/03/22 21:22 Medical records reviewed Reevaluation #2: 07/03/22 21:22 Patient informed results and questions answered, she is not responsive to verbal questioning currently Reevaluation #3: 07/03/22 21:23 Patient has no change in symptoms here in the ER Reevaluation #4: 07/03/22 21:23 Was pt. sent in by a medical professional or institution? @ -no Did you speak to anyone other than the patient for history? @ -no Did you review nursing and triage notes? @ -agree Were old charts reviewed? @ -no Differential Diagnosis? @ -no EKG interpreted by me (3pts min.)? @ -non X-rays interpreted by me (1pt min.)? @ -no CT interpreted by me (1pt min.)? @ -no U/S interpreted by me (1pt. min.)? @ -no What testing was considered but not performed? (CT, X-rays, U/S, labs)? Why? @ no What meds were considered but not given? Why? @ -no Did you discuss the management of the patient with other professionals? @ -no Did you reconcile home meds? @ -no Was smoking cessation discussed for >3mins.? @ -no Was critical care preformed (if so, how long)? @ -no Were there social determinants of health that impacted care today? How? (Homelessness, low income, unemployed, alcoholism, drug addiction, transportation, low edu. Level, literacy, decrease access to med. care, senior living, rehab)? @ -no Was there de-escalation of care discussed even if they declined? (Discuss DNR or withdrawal of care, Hospice)? @ -no What co-morbidities impacted this encounter? (DM, HTN, Smoking, COPD, CAD, Cancer, CVA, Hep., AIDS, mental health diagnosis, sleep apnea, morbid obesity)? @ -no Was patient admitted / discharged? @ -admit Undiagnosed new problem with uncertain prognosis? @ -no Drug Therapy requiring intensive monitoring for toxicity (Heparin, Nitro, Insulin, Cardizem)? @ -no Were any procedures done? @ -no Diagnosis/symptom? @ -no Acute, or Chronic, or Acute on Chronic? @ -acute Uncomplicated (without systemic symptoms) or Complicated (systemic symptoms)? @ -no Side effects of treatment? @ -no Exacerbation, Progression, or Severe Exacerbation] @ -no Poses a threat to life or bodily function? @ -yes/sepsis Reevaluation #5: 07/03/22 21:23 Differential Altered Mental Status: Hypoglycemia, DKA, hypercapnia, ETOH, overdose, CO poisoning, trauma, myxedema coma, HTN encephalopathy, infection, encephalitis, psychosis, intercranial hemorrhage, hepatic encephalopathy, meningitis, CVA, this is not meant to be an all-inclusive list - Consultations Consultation #1: Spoke with Dr. Nathan agrees to admit this patient Medical Decision Making - Medical Decision Making 87 female altered mental status significant weakness recurrent urinary tract infection patient will be admitted for IV antibiotics replace Kurtz and IV hydration - Lab Data Result diagrams: 07/03/22 19:17 07/03/22 19:17 Lab Results 07/03/22 07/03/22 07/03/22 Range/Units 19:17 19:17 19:17 WBC 10.0 (3.8-10.6) k/uL RBC 4.07 (3.80-5.40) m/uL Hgb 11.5 (11.4-16.0) gm/dL Hct 35.6 (34.0-46.0) % MCV 87.4 (80.0-100.0) fL MCH 28.3 (25.0-35.0) pg MCHC 32.3 (31.0-37.0) g/dL RDW 15.5 (11.5-15.5) % Plt Count 381 (150-450) k/uL MPV 7.4 Neutrophils % 69 % Lymphocytes % 19 % Monocytes % 7 % Eosinophils % 3 % Basophils % 1 % Neutrophils # 6.8 (1.3-7.7) k/uL Lymphocytes # 1.8 (1.0-4.8) k/uL Monocytes # 0.7 (0-1.0) k/uL Eosinophils # 0.3 (0-0.7) k/uL Basophils # 0.1 (0-0.2) k/uL PT 10.0 (9.0-12.0) sec INR 0.9 (<1.2) APTT 19.5 L (22.0-30.0) sec Sodium (137-145) mmol/L Potassium (3.5-5.1) mmol/L Chloride (98-107) mmol/L Carbon Dioxide (22-30) mmol/L Anion Gap mmol/L BUN (7-17) mg/dL Creatinine (0.52-1.04) mg/dL Est GFR (CKD-EPI)AfAm (>60 ml/min/1.73 sqM) Est GFR (CKD-EPI)NonAf (>60 ml/min/1.73 sqM) Glucose (74-99) mg/dL Plasma Lactic Acid Teofilo (0.7-2.0) mmol/L Calcium (8.4-10.2) mg/dL Phosphorus (2.5-4.5) mg/dL Magnesium (1.6-2.3) mg/dL Total Bilirubin (0.2-1.3) mg/dL AST (14-36) U/L ALT (4-34) U/L Alkaline Phosphatase (38-126) U/L Troponin I (0.000-0.034) ng/mL NT-Pro-B Natriuret Pep pg/mL Total Protein (6.3-8.2) g/dL Albumin (3.5-5.0) g/dL Urine Color Yellow Urine Appearance Turbid H (Clear) Urine pH 8.0 (5.0-8.0) Ur Specific [place] 1.019 (1.001-1.035) Urine Protein 2+ H (Negative) Urine Glucose (UA) Negative (Negative) Urine Ketones Negative (Negative) Urine Blood Small H (Negative) Urine Nitrite Negative (Negative) Urine Bilirubin Negative (Negative) Urine Urobilinogen <2.0 (<2.0) mg/dL Ur Leukocyte Esterase Large H (Negative) Urine RBC 50 H (0-5) /hpf Urine WBC >182 H (0-5) /hpf Calcium Oxalate Crystal Few H (None) /hpf Urine Bacteria Occasional H (None) /hpf Urine Mucus Rare H (None) /hpf 07/03/22 07/03/22 07/03/22 Range/Units 19:17 19:17 19:17 WBC (3.8-10.6) k/uL RBC (3.80-5.40) m/uL Hgb (11.4-16.0) gm/dL Hct (34.0-46.0) % MCV (80.0-100.0) fL MCH (25.0-35.0) pg MCHC (31.0-37.0) g/dL RDW (11.5-15.5) % Plt Count (150-450) k/uL MPV Neutrophils % % Lymphocytes % % Monocytes % % Eosinophils % % Basophils % % Neutrophils # (1.3-7.7) k/uL Lymphocytes # (1.0-4.8) k/uL Monocytes # (0-1.0) k/uL Eosinophils # (0-0.7) k/uL Basophils # (0-0.2) k/uL PT (9.0-12.0) sec INR (<1.2) APTT (22.0-30.0) sec Sodium 141 (137-145) mmol/L Potassium 4.4 (3.5-5.1) mmol/L Chloride 116 H (98-107) mmol/L Carbon Dioxide 14 L (22-30) mmol/L Anion Gap 11 mmol/L BUN 27 H (7-17) mg/dL Creatinine 0.96 (0.52-1.04) mg/dL Est GFR (CKD-EPI)AfAm 61 (>60 ml/min/1.73 sqM) Est GFR (CKD-EPI)NonAf 53 (>60 ml/min/1.73 sqM) Glucose 119 H (74-99) mg/dL Plasma Lactic Acid Teofilo 1.1 (0.7-2.0) mmol/L Calcium 8.8 (8.4-10.2) mg/dL Phosphorus 4.0 (2.5-4.5) mg/dL Magnesium 2.1 (1.6-2.3) mg/dL Total Bilirubin 0.4 (0.2-1.3) mg/dL AST 19 (14-36) U/L ALT 16 (4-34) U/L Alkaline Phosphatase 81 (38-126) U/L Troponin I <0.012 (0.000-0.034) ng/mL NT-Pro-B Natriuret Pep pg/mL Total Protein 7.0 (6.3-8.2) g/dL Albumin 3.2 L (3.5-5.0) g/dL Urine Color Urine Appearance (Clear) Urine pH (5.0-8.0) Ur Specific [place] (1.001-1.035) Urine Protein (Negative) Urine Glucose (UA) (Negative) Urine Ketones (Negative) Urine Blood (Negative) Urine Nitrite (Negative) Urine Bilirubin (Negative) Urine Urobilinogen (<2.0) mg/dL Ur Leukocyte Esterase (Negative) Urine RBC (0-5) /hpf Urine WBC (0-5) /hpf Calcium Oxalate Crystal (None) /hpf Urine Bacteria (None) /hpf Urine Mucus (None) /hpf 07/03/22 Range/Units 19:17 WBC (3.8-10.6) k/uL RBC (3.80-5.40) m/uL Hgb (11.4-16.0) gm/dL Hct (34.0-46.0) % MCV (80.0-100.0) fL MCH (25.0-35.0) pg MCHC (31.0-37.0) g/dL RDW (11.5-15.5) % Plt Count (150-450) k/uL MPV Neutrophils % % Lymphocytes % % Monocytes % % Eosinophils % % Basophils % % Neutrophils # (1.3-7.7) k/uL Lymphocytes # (1.0-4.8) k/uL Monocytes # (0-1.0) k/uL Eosinophils # (0-0.7) k/uL Basophils # (0-0.2) k/uL PT (9.0-12.0) sec INR (<1.2) APTT (22.0-30.0) sec Sodium (137-145) mmol/L Potassium (3.5-5.1) mmol/L Chloride (98-107) mmol/L Carbon Dioxide (22-30) mmol/L Anion Gap mmol/L BUN (7-17) mg/dL Creatinine (0.52-1.04) mg/dL Est GFR (CKD-EPI)AfAm (>60 ml/min/1.73 sqM) Est GFR (CKD-EPI)NonAf (>60 ml/min/1.73 sqM) Glucose (74-99) mg/dL Plasma Lactic Acid Teofilo (0.7-2.0) mmol/L Calcium (8.4-10.2) mg/dL Phosphorus (2.5-4.5) mg/dL Magnesium (1.6-2.3) mg/dL Total Bilirubin (0.2-1.3) mg/dL AST (14-36) U/L ALT (4-34) U/L Alkaline Phosphatase (38-126) U/L Troponin I (0.000-0.034) ng/mL NT-Pro-B Natriuret Pep 1080 pg/mL Total Protein (6.3-8.2) g/dL Albumin (3.5-5.0) g/dL Urine Color Urine Appearance (Clear) Urine pH (5.0-8.0) Ur Specific [place] (1.001-1.035) Urine Protein (Negative) Urine Glucose (UA) (Negative) Urine Ketones (Negative) Urine Blood (Negative) Urine Nitrite (Negative) Urine Bilirubin (Negative) Urine Urobilinogen (<2.0) mg/dL Ur Leukocyte Esterase (Negative) Urine RBC (0-5) /hpf Urine WBC (0-5) /hpf Calcium Oxalate Crystal (None) /hpf Urine Bacteria (None) /hpf Urine Mucus (None) /hpf - EKG Data -: EKG Interpreted by Me (EKG is atrial 92 [place] 164 QRS 74 QTC 390) Disposition Clinical Impression: Acute exacerbation of chronic obstructive airways disease, Dementia, History of COPD, Confusion, Malnourished, Altered mental status, Dehydration, UTI (urinary tract infection) Disposition: ADMITTED IP TO THIS HOSP Condition: Fair Is patient prescribed a controlled substance at d/c from ED?: No Referrals: Victor Hugo Zhong MD [Primary Care Provider] - 1-2 days Time of Disposition: 21:30
[2022-07-03 19:38] LABS: Basophils # (A) 0.1 k/uL (0-0.2); Basophils % (A) 1 %; Eosinophils # (A) 0.3 k/uL (0-0.7); Eosinophils % (A) 3 %; HCT 35.6 % (34.0-46.0); HGB 11.5 gm/dL (11.4-16.0); Lymphocytes # (A) 1.8 k/uL (1.0-4.8); Lymphocytes % (A) 19 %; MCH 28.3 pg (25.0-35.0); MCHC 32.3 g/dL (31.0-37.0); MCV 87.4 fL (80.0-100.0); Mean Platelet Volume 7.4; Monocytes # (A) 0.7 k/uL (0-1.0); Monocytes % (A) 7 %; Neutrophils # (A) 6.8 k/uL (1.3-7.7); Neutrophils % (A) 69 %; Platelet Count 381 k/uL (150-450); RBC 4.07 m/uL (3.80-5.40); RDW 15.5 % (11.5-15.5)
[2022-07-03 19:45] LABS: Appearance,Urine Turbid (Clear); Bacteria,Urine Occasional /hpf; Bilirubin,Urine Negative (Negative); Blood,Urine Small (Negative); Calcium Oxalate Crystals,Urine Few /hpf; Color,Urine Yellow; Glucose,Urine (UA) Negative (Negative); Ketones,Urine Negative (Negative); Leukocyte Esterase,Urine Large (Negative); Mucus,Urine Rare /hpf; Nitrite,Urine Negative (Negative); Protein,Urine 2+ (Negative); RBC,Urine 50 /hpf (0-5); Specific Gravity,Urine 1.019 (1.001-1.035); Urobilinogen,Urine <2.0 mg/dL (<2.0); WBC,Urine >182 /hpf (0-5)
[2022-07-03 19:57] LABS: INR 0.9 (<1.2)
[2022-07-03 20:00] LABS: Albumin 3.2 g/dL (3.5-5.0); Calcium 8.8 mg/dL (8.4-10.2); Magnesium 2.1 mg/dL (1.6-2.3); Potassium 4.4 mmol/L (3.5-5.1); Total Bilirubin 0.4 mg/dL (0.2-1.3)
[2022-07-03 20:05] LABS: Partial Thromboplastin Time 19.5 sec (22.0-30.0)
[2022-07-03] MEDS ORDERED: SODIUM CHLORIDE 0.9% 500 ML 500 ML IV STA (21:16)
[2022-07-03] MEDS ORDERED: AMPICILLIN-SULBACTAM 3 GM in SODIUM CHLORIDE 0.9% 100 ML IVPB STA (21:19)
[2022-07-03] MEDS ORDERED: ACETAMINOPHEN TAB 325 MG TAB PO PRN (21:26)
[2022-07-03] MEDS ORDERED: MORPHINE SULFATE 4 MG/ML SYRINGE IV PRN (21:26)
[2022-07-03] MEDS ORDERED: NALOXONE 0.4 MG/ML 1 ML VIAL IV PRN (21:26)
[2022-07-03] MEDS ORDERED: ONDANSETRON 4 MG/2 ML VIAL IVP PRN (21:26)
[2022-07-03] MEDS: SODIUM CHLORIDE 0.9% 1,000 ML IV STA ×2 (22:31→23:54)
[2022-07-03] MEDS: SODIUM CHLORIDE 0.9% 1,000 ML IV SCH (22:32)
--- NOTE | 2022-07-04 04:54 | HP ---
HISTORY AND PHYSICAL HISTORY OF PRESENT ILLNESS: This 87-year-old white female was in the emergency room, generalized weakness, fatigue, altered mental status, abnormal UA, positive drug-resistant UTI with over 180 white cells with altered mental status with decreased response and weakness, moderate amount, waxing and waning. HOME MEDICINES: 1. Levothyroxine 50 daily. 2. Multivitamin daily. 3. Omeprazole 40 daily. 4. Aspirin 81 daily. 5. Senokot p.r.n. for constipation. 6. DuoNeb updrafts q.i.d. ALLERGIES: To cefuroxime. REVIEW OF SYSTEMS: A 14-point review of systems otherwise negative as mentioned above. PAST MEDICAL HISTORY: Cancer, heart failure, COPD, dementia, GERD, hypothyroidism, hiatal hernia, metastatic breast cancer, bone cancer, right hand, in fracture. FAMILY HISTORY: Father, heart disease. Mother, heart disease. Sister, cancer of the breasts. PHYSICAL EXAMINATION: GENERAL: Weak, cachectic, malnourished, appears in no apparent distress. She is alert and oriented x1. VITAL SIGNS: Temp 98.3, pulse 80, respiratory rate 16 to 18, blood pressure 120s/60s, O2 92 to 99. HEENT: Normocephalic, atraumatic. Pupils equal, round, and reactive. LUNGS: Transmitted upper sounds, scattered wheeze. CARDIOVASCULAR: S1, S2. GI: Soft, nontender. EXTREMITIES: Normal range of motion. inspection. SKIN: Warm and dry. ASSESSMENT: Metabolic encephalopathy secondary to urosepsis, dementia, normal-pressure hydrocephalus, prerenal azotemia. Continue current treatments. Rehydrate. IV antibiotics. Infectious Disease consult. Prognosis guarded. MMODL / IJN: [id number] /
[2022-07-04] MEDS: SODIUM CHLORIDE 0.9% 1,000 ML IV SCH ×3 (06:11→21:34)
[2022-07-04] MEDS: AMPICILLIN-SULBACTAM 3 GM in SODIUM CHLORIDE 0.9% 100 ML IVPB SCH ×3 (06:11→21:35)
[2022-07-04] MEDS: LEVOTHYROXINE 50 MCG TAB PO SCH (06:11)
[2022-07-04 06:53] LABS: Basophils # (A) 0.1 k/uL (0-0.2); Basophils % (A) 1 %; Eosinophils # (A) 0.3 k/uL (0-0.7); Eosinophils % (A) 4 %; HCT 36.1 % (34.0-46.0); HGB 11.3 gm/dL (11.4-16.0); Hypochromasia Moderate; Lymphocytes # (A) 1.6 k/uL (1.0-4.8); Lymphocytes % (A) 18 %; MCH 28.1 pg (25.0-35.0); MCHC 31.3 g/dL (31.0-37.0); MCV 89.7 fL (80.0-100.0); Mean Platelet Volume 7.4; Monocytes # (A) 0.6 k/uL (0-1.0); Monocytes % (A) 7 %; Neutrophils # (A) 6.3 k/uL (1.3-7.7); Neutrophils % (A) 69 %; Platelet Count 381 k/uL (150-450); RBC 4.03 m/uL (3.80-5.40); RDW 15.4 % (11.5-15.5); WBC 9.1 k/uL (3.8-10.6)
[2022-07-04 07:02] LABS: Albumin 3.1 g/dL (3.5-5.0); Calcium 8.8 mg/dL (8.4-10.2); Magnesium 2.1 mg/dL (1.6-2.3); Phosphorus 3.5 mg/dL (2.5-4.5); Potassium 4.3 mmol/L (3.5-5.1); Total Bilirubin 0.4 mg/dL (0.2-1.3)
[2022-07-04] MEDS: PANTOPRAZOLE 40 MG TABLET PO SCH (08:50)
[2022-07-04] MEDS: MULTIVITAMINS, THERA 1 EACH TAB PO SCH (08:50)
[2022-07-04] MEDS: ASPIRIN 81 MG PO SCH (08:50)
[2022-07-04] MEDS: ALBUTEROL NEBULIZED 2.5 MG/3 ML INHALATION SCH ×2 (08:51→18:29)
[2022-07-04] MEDS: IPRATROPIUM 0.5 MG/2.5 ML NEBU INHALATION SCH ×2 (08:51→18:29)
[2022-07-04 13:02] VITALS: BMI 15.4
--- NOTE | 2022-07-04 21:36 | P.CONS ---
History of Present Illness - Reason for Consult Consult date: 07/04/22 Urosepsis Requesting physician: Victor Hugo Zhong - Chief Complaint Mental status changes x one day - History of Present Illness Patient is 87-year female with a past medical history significant for dementia COPD reflux metastatic breast cancer history of recurrent UTI patient has been brought in the ER for evaluation of weakness but the symptom has been getting worse for a few days before presentation to hospital decreased level of responsiveness which is usually suggestive of UTI with the symptoms and the patient was brought to the ER on arrival to the ER the patient was afebrile and no fever have been called subsequently patient did have a normal white count kidney function was normal. Did have a positive UA with large leukocyte esterase more than 22 WBC urine culture is currently pending patient was started on Unasyn infectious he was consulted for further management of antibiotic therapy at the time my evaluation patient denies having any fever or any chills denies any headache no chest pain shortness with a cough no abdominal pain no diarrhea however, patient not a very good historian Review of Systems Positive point has been mentioned in the HPI rest of the systems are negative Past Medical History Past Medical History: Cancer, Heart Failure, COPD, Dementia, GERD/Reflux, Thyroid Disorder Additional Past Medical History / Comment(s): HIATAL HERNIA, metastatic breast ca, bone cancer(thoracic spine), 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 Past Anesthesia/Blood Transfusion Reactions: No Reported Reaction Past Psychological History: No Psychological Hx Reported Additional Psychological History / Comment(s): Pt resides at [facility] in [place]. She is non-ambulatory and needs assistance when eating per pt's daughter. Smoking Status: Unknown if ever smoked Past Alcohol Use History: None Reported Past Drug Use History: None Reported - Past Family History Father Additional Family Medical History / Comment(s): heart disease. Mother Additional Family Medical History / Comment(s): heart disease. Sister(s) Family Medical History: Cancer Additional Family Medical History / Comment(s): 3 SISTERS WITH BREAST CA Medications and Allergies Home Medications Medication Instructions Recorded Confirmed Type Levothyroxine Sodium [Synthroid] 50 mcg PO DAILY 04/01/17 07/03/22 History Multivitamins, Thera [Multivitamin 1 tab PO DAILY 11/02/19 07/03/22 History (formulary)] Omeprazole 40 mg PO DAILY 11/02/19 07/03/22 History Sennosides [Senokot] 8.6 mg PO DAILY PRN 05/25/22 07/03/22 History Potassium Chloride ER [K-Dur 20] 20 meq PO DAILY 90 Days #90 tab 05/31/22 07/03/22 Rx Aspirin EC [Ecotrin Low Dose] 81 mg PO DAILY 06/15/22 07/03/22 History Donepezil [Aricept] 10 mg PO HS 90 Days #90 tab 06/19/22 07/03/22 Rx Memantine [Namenda] 5 mg PO BID 90 Days #180 tab 06/19/22 07/03/22 Rx Ipratropium-Albuterol Nebulize 3 ml INHALATION RT-BID 06/29/22 07/03/22 History [Duoneb 0.5 mg-3 mg/3 ml Soln] Ipratropium-Albuterol Nebulize 3 ml INHALATION RT-QID PRN 06/29/22 07/03/22 History [Duoneb 0.5 mg-3 mg/3 ml Soln] Allergies Allergy/AdvReac Type Severity Reaction Status Date / Time cefuroxime Allergy Intermediate Hives Verified 07/03/22 19:11 Physical Exam Vitals: Vital Signs Temp Pulse Pulse Resp BP BP Pulse Ox 07/04/22 09:05 88 07/04/22 08:51 88 07/04/22 08:12 97.1 F L 78 17 101/54 96 07/04/22 02:00 98.2 F 81 17 110/69 99 07/03/22 23:15 88 18 115/59 100 07/03/22 19:41 89 16 122/69 99 07/03/22 18:34 98.3 F 94 18 122/69 92 L Intake and Output 07/03/22 07/04/22 07/04/22 22:59 06:59 14:59 Intake Total 20 Output Total 500 300 Balance -500 -280 Intake: Oral 20 Output: Urine 500 300 Other: Voiding Method Diaper Diaper Incontinent Incontinent Indwelling Catheter Indwelling Catheter # Bowel Movements 1 1 Weight 40.823 kg 40.823 kg GENERAL DESCRIPTION: Middle-aged female lying in bed, no distress. No tachypnea or accessory muscle of respiration use. HEENT: Shows Pallor , no scleral icterus. Oral mucous membrane is dry. No ph aryngeal erythema or thrush NECK: Trachea central, no thyromegaly. LUNGS: Unlabored breathing. Clear to auscultation anteriorly. No wheeze or crackle. HEART: S1, S2, regular rate and rhythm. No loud murmur ABDOMEN: Soft, no tenderness , guarding or rigidity, no organomegaly EXTREMITIES: No edema of feet. SKIN: No rash, no masses palpable. NEUROLOGICAL: The patient is awake, alert, oriented x1, mood and affect normal. Results CBC & Chem 7: 07/05/22 05:59 07/05/22 05:59 Labs: Abnormal Lab Results - Last 24 Hours (Table) 07/03/22 07/03/22 07/03/22 Range/Units 19:17 19:17 19:17 Hgb (11.4-16.0) gm/dL APTT 19.5 L (22.0-30.0) sec Chloride 116 H (98-107) mmol/L Carbon Dioxide 14 L (22-30) mmol/L BUN 27 H (7-17) mg/dL Glucose 119 H (74-99) mg/dL Albumin 3.2 L (3.5-5.0) g/dL Urine Appearance Turbid H (Clear) Urine Protein 2+ H (Negative) Urine Blood Small H (Negative) Ur Leukocyte Esterase Large H (Negative) Urine RBC 50 H (0-5) /hpf Urine WBC >182 H (0-5) /hpf Calcium Oxalate Crystal Few H (None) /hpf Urine Bacteria Occasional H (None) /hpf Urine Mucus Rare H (None) /hpf 07/04/22 07/04/22 Range/Units 06:20 06:20 Hgb 11.3 L (11.4-16.0) gm/dL APTT (22.0-30.0) sec Chloride 120 H (98-107) mmol/L Carbon Dioxide 13 L (22-30) mmol/L BUN 24 H (7-17) mg/dL Glucose 110 H (74-99) mg/dL Albumin 3.1 L (3.5-5.0) g/dL Urine Appearance (Clear) Urine Protein (Negative) Urine Blood (Negative) Ur Leukocyte Esterase (Negative) Urine RBC (0-5) /hpf Urine WBC (0-5) /hpf Calcium Oxalate Crystal (None) /hpf Urine Bacteria (None) /hpf Urine Mucus (None) /hpf Assessment and Plan (1) UTI (urinary tract infection) Current Visit: Yes Status: Acute Code(s): N39.0 - URINARY TRACT INFECTION, SITE NOT SPECIFIED SNOMED Code(s): 07714022 Plan: 1patient present hospitalized weakness significantly positive UA and mental status changes concerning for UTI that has been typical of her admission to the hospital for UTI likely from enteric gram-negative pathogen. 2- cefuroxime ALLERGY that will limit the number of antibiotics safe to use. 3patient to continue with the Unasyn while waiting for the culture to finalize. We will follow on clinical condition and cultures to further adjust medication if needed Thank you for this consultation we will follow the patient along with you Time with Patient: Greater than 30
[2022-07-05] MEDS: SODIUM CHLORIDE 0.9% 1,000 ML IV SCH ×3 (04:29→20:52)
[2022-07-05] MEDS: AMPICILLIN-SULBACTAM 3 GM in SODIUM CHLORIDE 0.9% 100 ML IVPB SCH ×3 (06:01→21:13)
[2022-07-05] MEDS: PANTOPRAZOLE 40 MG TABLET PO SCH (06:08)
[2022-07-05] MEDS: LEVOTHYROXINE 50 MCG TAB PO SCH (06:08)
[2022-07-05 09:33] LABS: ALT 11 U/L (8-44); AST 13 U/L (13-35); African American GFR (CKD) 93.4 (60.0-200.0); Albumin/Globulin Ratio 0.92 (1.60-3.17); Alkaline Phosphatase 67 U/L (41-126); BUN/Creat Ratio 40.66 Ratio (12.00-20.00); Blood Urea Nitrogen 24.6 mg/dL (9.0-27.0); Calcium 8.6 mg/dL (8.7-10.3); Carbon Dioxide 15.9 mmol/L (20.0-27.5); Chloride 116 mmol/L (96-109); Globulin 3.2 g/dL (1.6-3.3); Glucose 108 mg/dL (70-110); Non-African American GFR(CKD) 80.6 (60.0-200.0); Potassium 3.3 mmol/L (3.5-5.5); Sodium 142 mmol/L (135-145); Total Bilirubin <0.15 mg/dL (0.30-1.20); Total Protein 6.2 g/dL (6.2-8.2)
[2022-07-05 09:36] LABS: HCT 29.1 % (37.2-46.3); HGB 9.2 g/dL (12.0-15.0); MCH 27.2 pg (27.0-32.0); MCHC 31.6 g/dL (32.0-37.0); MCV 86.1 fL (80.0-97.0); Mean Platelet Volume 9.6 fL (9.5-12.2); NRBC Per 100 WBC 0 /100 WBCS (0.0-0.0); Platelet Count 336 X 10*3/uL (140-440); RBC 3.38 X 10*6/uL (4.10-5.20); RDW 16.4 % (11.5-14.5); WBC 7.94 X 10*3/uL (4.50-10.00)
[2022-07-05] MEDS: ALBUTEROL NEBULIZED 2.5 MG/3 ML INHALATION SCH ×2 (09:51→18:28)
[2022-07-05] MEDS: IPRATROPIUM 0.5 MG/2.5 ML NEBU INHALATION SCH ×2 (09:51→18:28)
[2022-07-05] MEDS: ASPIRIN 81 MG PO SCH (10:18)
[2022-07-05] MEDS: MULTIVITAMINS, THERA 1 EACH TAB PO SCH (10:18)
[2022-07-05 10:33] LABS: Basophils # (M) 0.24 X 10*3/uL (0.00-0.10); Eosinophils # (M) 0.32 X 10*3/uL (0.04-0.35); Lymphocytes # (M) 1.11 X 10*3/uL (0.90-5.00); Metamyelocytes % 1 % (0-0); Monocytes # (M) 0.32 X 10*3/uL (0.20-1.00); Myelocytes % 2 % (0-0); Neutrophils # (M) 5.72 X 10*3/uL (2.00-8.90); Neutrophils % (M) 72 %; RBC Morphology NORMAL
[2022-07-05] MEDS ORDERED: Potassium Replacement Protocol 1 EACH MISC MISCELLANE PRN (11:04)
[2022-07-05] MEDS: POTASSIUM CHLORIDE ER 20 MEQ TAB.ER PO SCH ×2 (11:54→13:23)
--- NOTE | 2022-07-05 13:32 | P.PN ---
Subjective Progress Note Date: 07/05/22 Principal diagnosis: Urinary tract infection Patient is 87 year female with a past medical history significant for recurrent urinary tract infection has been brought to the hospital for mental status changes positive the concerning for symptomatic UTI. On today's evaluation that is 07/05/2022, the patient is afebrile patient is awake and alert denies any chest pain shortness of breath or cough no abdominal pain and no diarrhea has been reported Objective - Vital Signs Vital signs: Vital Signs Temp 97.6 F 07/05/22 07:00 Pulse 88 07/05/22 10:04 Resp 15 07/05/22 07:00 BP 103/54 07/05/22 07:00 Pulse Ox 98 07/05/22 09:54 FiO2 Intake & Output 07/04/22 07/05/22 07/05/22 18:59 06:59 18:59 Intake Total 20 472 Output Total 400 Balance -380 472 Weight 40.823 kg Intake: Oral 20 472 Output: Urine 400 Other: Voiding Method Diaper Diaper Indwelling Catheter Incontinent Incontinent Indwelling Catheter Indwelling Catheter # Voids 2 # Bowel Movements 1 1 - Exam GENERAL DESCRIPTION: An elderly female lying in bed in no distress RESPIRATORY SYSTEM: Unlabored breathing , decreased breath sounds at bases HEART: S1 S2 regular rate and rhythm , ABDOMEN: Soft , no tenderness EXTREMITIES: No edema feet - Labs CBC & Chem 7: 07/05/22 05:59 07/05/22 05:59 Labs: Abnormal Lab Results - Last 24 Hours (Table) 07/05/22 07/05/22 Range/Units 05:59 05:59 RBC 3.38 L (4.10-5.20) X 10*6/uL Hgb 9.2 L (12.0-15.0) g/dL Hct 29.1 L (37.2-46.3) % MCHC 31.6 L (32.0-37.0) g/dL RDW 16.4 H (11.5-14.5) % Metamyelocytes % 1 H (0-0) % Myelocytes % 2 H (0-0) % Basophils # (Manual) 0.24 H (0.00-0.10) X 10*3/uL Potassium 3.3 L (3.5-5.5) mmol/L Chloride 116 H (96-109) mmol/L Carbon Dioxide 15.9 L (20.0-27.5) mmol/L Anion Gap 9.80 L (10.00-18.00) mmol/L BUN/Creatinine Ratio 40.66 H (12.00-20.00) Ratio Calcium 8.6 L (8.7-10.3) mg/dL Total Bilirubin <0.15 L (0.30-1.20) mg/dL Albumin 3.0 L (3.8-4.9) g/dL Albumin/Globulin Ratio 0.92 L (1.60-3.17) g/dL Microbiology - Last 24 Hours (Table) 07/03/22 19:17 Urine Culture - Preliminary Urine,Catheterized Gram Neg Bacilli Assessment and Plan (1) UTI (urinary tract infection) Current Visit: Yes Status: Acute Code(s): N39.0 - URINARY TRACT INFECTION, SITE NOT SPECIFIED SNOMED Code(s): 04189136 Plan: 1patient present hospitalized weakness significantly positive UA and mental status changes concerning for UTI that has been typical of her admission to the hospital for UTI likely from enteric gram-negative pathogen. 2- cefuroxime ALLERGY that will limit the number of antibiotics safe to use. 3patient to continue with Unasyn while waiting for the culture to finalize, which is currently growing gram-negative with ID sensitivity pending Time with Patient: Less than 30
[2022-07-05] MEDS ORDERED: SENNOSIDES 8.6 MG TAB PO PRN (15:51)
[2022-07-05] MEDS: DONEPEZIL 10 MG TAB PO SCH (21:12)
[2022-07-05] MEDS: MEMANTINE 5 MG TAB PO SCH (21:12)
[2022-07-06] MEDS: SODIUM CHLORIDE 0.9% 1,000 ML IV SCH ×3 (02:43→21:29)
[2022-07-06] MEDS: AMPICILLIN-SULBACTAM 3 GM in SODIUM CHLORIDE 0.9% 100 ML IVPB SCH ×3 (05:47→21:26)
[2022-07-06] MEDS: LEVOTHYROXINE 50 MCG TAB PO SCH (05:48)
[2022-07-06] MEDS: PANTOPRAZOLE 40 MG TABLET PO SCH (05:49)
[2022-07-06] MEDS: IPRATROPIUM 0.5 MG/2.5 ML NEBU INHALATION SCH ×2 (08:36→21:12)
[2022-07-06] MEDS: ALBUTEROL NEBULIZED 2.5 MG/3 ML INHALATION SCH ×2 (08:36→21:12)
[2022-07-06] MEDS: MULTIVITAMINS, THERA 1 EACH TAB PO SCH (09:08)
[2022-07-06] MEDS: MEMANTINE 5 MG TAB PO SCH ×2 (09:08→21:29)
[2022-07-06] MEDS: ASPIRIN 81 MG PO SCH (09:08)
[2022-07-06] MEDS: POTASSIUM CHLORIDE ER 20 MEQ TAB.ER PO SCH (09:09)
[2022-07-06 12:03] LABS: ALT 16 U/L (4-34); AST 19 U/L (14-36); African American GFR (CKD) >90 (>60 ml/min/1.73 sqM); Albumin 2.8 g/dL (3.5-5.0); Albumin/Globulin Ratio 0.8; Alkaline Phosphatase 61 U/L (38-126); Anion Gap 10 mmol/L; Blood Urea Nitrogen 16 mg/dL (7-17); Calcium 8.1 mg/dL (8.4-10.2); Carbon Dioxide 15 mmol/L (22-30); Chloride 119 mmol/L (98-107); Globulin 3.6 g/dL; Glucose 178 mg/dL (74-99); Non-African American GFR(CKD) 83 (>60 ml/min/1.73 sqM); Potassium 3.8 mmol/L (3.5-5.1); Sodium 144 mmol/L (137-145); Total Bilirubin 0.2 mg/dL (0.2-1.3); Total Protein 6.4 g/dL (6.3-8.2)
[2022-07-06 12:33] LABS: Basophils # (A) 0.1 k/uL (0-0.2); Basophils % (A) 1 %; Eosinophils # (A) 0.4 k/uL (0-0.7); Eosinophils % (A) 6 %; HCT 30.1 % (34.0-46.0); Hypochromasia Moderate; Lymphocytes # (A) 1.1 k/uL (1.0-4.8); Lymphocytes % (A) 18 %; MCH 28.3 pg (25.0-35.0); MCHC 32.2 g/dL (31.0-37.0); MCV 87.9 fL (80.0-100.0); Mean Platelet Volume 7.7; Monocytes # (A) 0.4 k/uL (0-1.0); Monocytes % (A) 6 %; Neutrophils # (A) 4.2 k/uL (1.3-7.7); Neutrophils % (A) 67 %; Platelet Count 348 k/uL (150-450); RBC 3.43 m/uL (3.80-5.40); RDW 15.8 % (11.5-15.5); WBC 6.2 k/uL (3.8-10.6)
[2022-07-06 12:35] LABS: HGB 9.7 gm/dL (11.4-16.0)
--- NOTE | 2022-07-06 13:37 | PN ---
PROGRESS NOTE SUBJECTIVE: This is an 87-year-old white female, continues to do well. She is more alert, giving appropriate answers now. She has been rehydrated. She is wearing oxygen at night. OBJECTIVE: VITAL SIGNS: Temperature 97.6, blood pressure 135/63, pulse 83, respiratory rate 16, and 97 to 100 on room air. CARDIOVASCULAR: S1, S2. LUNGS: Clear. GI: Soft. HEMATOLOGY: Negative for Homans. PSYCH: Fair mood and affect. PLAN: Continue current treatments. Metabolic encephalopathy secondary to UTI, acute on chronic anemia. Hemoglobin is 9.2. Wait for recheck on her blood counts. Check her iron levels. Hypokalemia, potassium 3.3. we will replace her potassium. Diabetes is normal. Albumin is 3.0, give protein supplement. Prognosis is guarded. Continue broad-spectrum antibiotics. She has gram-negative bacilli in the urine. Waiting for final antibiotics report from the lab. MMODL / IJN: [id number] /
--- NOTE | 2022-07-06 18:29 | P.PN ---
Subjective Progress Note Date: 07/06/22 Principal diagnosis: Urinary tract infection Patient is 87 year female with a past medical history significant for recurrent urinary tract infection has been brought to the hospital for mental status changes positive the concerning for symptomatic UTI. On today's evaluation that is 07/06/2022, the patient remains to be afebrile patient is pleasantly confused this morning and not a very good historian no vomiting or diarrhea was reported Objective - Vital Signs Vital signs: Vital Signs Temp 97.6 F 07/06/22 07:05 Pulse 88 07/06/22 08:49 Resp 16 07/06/22 14:00 BP 135/63 07/06/22 07:05 Pulse Ox 100 07/06/22 07:05 FiO2 Intake & Output 07/05/22 07/06/22 07/06/22 18:59 06:59 18:59 Intake Total 950 236 Output Total 350 570 Balance 600 -570 236 Weight 40.823 kg Intake: Oral 950 236 Output: Urine 350 570 Other: Voiding Method Indwelling Catheter Indwelling Catheter Indwelling Catheter # Bowel Movements 1 0 1 - Exam GENERAL DESCRIPTION: An elderly female lying in bed in no distress RESPIRATORY SYSTEM: Unlabored breathing , decreased breath sounds at bases HEART: S1 S2 regular rate and rhythm , ABDOMEN: Soft , no tenderness EXTREMITIES: No edema feet - Labs CBC & Chem 7: 07/06/22 11:30 07/06/22 11:30 Labs: Abnormal Lab Results - Last 24 Hours (Table) 07/06/22 07/06/22 Range/Units 11:30 11:30 RBC 3.43 L (3.80-5.40) m/uL Hgb 9.7 L D (11.4-16.0) gm/dL Hct 30.1 L (34.0-46.0) % RDW 15.8 H (11.5-15.5) % Chloride 119 H (98-107) mmol/L Carbon Dioxide 15 L (22-30) mmol/L Glucose 178 H (74-99) mg/dL Calcium 8.1 L (8.4-10.2) mg/dL Albumin 2.8 L (3.5-5.0) g/dL Microbiology - Last 24 Hours (Table) 07/03/22 19:17 Urine Culture - Final Urine,Catheterized Proteus mirabilis Assessment and Plan (1) UTI (urinary tract infection) Current Visit: Yes Status: Acute Code(s): N39.0 - URINARY TRACT INFECTION, SITE NOT SPECIFIED SNOMED Code(s): 08509642 Plan: 1patient present hospitalized weakness significantly positive UA and mental status changes concerning for UTI that has been typical of her admission to the hospital for UTI likely from enteric gram-negative pathogen. 2- cefuroxime ALLERGY that will limit the number of antibiotics safe to use. 3patient urine cultures currently showing Proteus that is sensitive to Unasyn to continue and monitor clinical course closely Time with Patient: Less than 30
[2022-07-06] MEDS: DONEPEZIL 10 MG TAB PO SCH (21:29)
[2022-07-07] MEDS: SODIUM CHLORIDE 0.9% 1,000 ML IV SCH ×3 (04:19→15:17)
[2022-07-07] MEDS: AMPICILLIN-SULBACTAM 3 GM in SODIUM CHLORIDE 0.9% 100 ML IVPB SCH ×3 (06:03→20:13)
[2022-07-07] MEDS: PANTOPRAZOLE 40 MG TABLET PO SCH (06:03)
[2022-07-07] MEDS: LEVOTHYROXINE 50 MCG TAB PO SCH (06:03)
[2022-07-07] MEDS: IPRATROPIUM 0.5 MG/2.5 ML NEBU INHALATION SCH ×2 (07:55→20:15)
[2022-07-07] MEDS: ALBUTEROL NEBULIZED 2.5 MG/3 ML INHALATION SCH ×2 (07:55→20:15)
[2022-07-07 08:43] LABS: Basophils # (A) 0.1 k/uL (0-0.2); Basophils % (A) 1 %; Eosinophils # (A) 0.7 k/uL (0-0.7); Eosinophils % (A) 8 %; HCT 31.4 % (34.0-46.0); Hypochromasia Slight; Lymphocytes # (A) 1.7 k/uL (1.0-4.8); Lymphocytes % (A) 20 %; MCH 27.9 pg (25.0-35.0); MCHC 31.9 g/dL (31.0-37.0); MCV 87.5 fL (80.0-100.0); Mean Platelet Volume 7.1; Monocytes # (A) 0.5 k/uL (0-1.0); Monocytes % (A) 6 %; Neutrophils # (A) 5.1 k/uL (1.3-7.7); Neutrophils % (A) 63 %; Platelet Count 334 k/uL (150-450); RBC 3.59 m/uL (3.80-5.40); RDW 15.5 % (11.5-15.5); WBC 8.2 k/uL (3.8-10.6)
[2022-07-07 09:00] LABS: ALT 13 U/L (4-34); AST 18 U/L (14-36); African American GFR (CKD) >90 (>60 ml/min/1.73 sqM); Albumin 2.6 g/dL (3.5-5.0); Albumin/Globulin Ratio 0.7; Alkaline Phosphatase 65 U/L (38-126); Anion Gap 6 mmol/L; Blood Urea Nitrogen 12 mg/dL (7-17); Calcium 8.1 mg/dL (8.4-10.2); Carbon Dioxide 20 mmol/L (22-30); Chloride 115 mmol/L (98-107); Globulin 3.5 g/dL; Glucose 91 mg/dL (74-99); Non-African American GFR(CKD) 84 (>60 ml/min/1.73 sqM); Potassium 4.1 mmol/L (3.5-5.1); Sodium 141 mmol/L (137-145); Total Bilirubin 0.2 mg/dL (0.2-1.3); Total Protein 6.1 g/dL (6.3-8.2)
[2022-07-07] MEDS: ASPIRIN 81 MG PO SCH (09:47)
[2022-07-07] MEDS: POTASSIUM CHLORIDE ER 20 MEQ TAB.ER PO SCH (09:47)
[2022-07-07] MEDS: MEMANTINE 5 MG TAB PO SCH ×2 (09:48→20:14)
[2022-07-07] MEDS: MULTIVITAMINS, THERA 1 EACH TAB PO SCH (09:48)
--- NOTE | 2022-07-07 14:11 | P.PN ---
Subjective Progress Note Date: 07/07/22 Principal diagnosis: Urinary tract infection Patient is 87 year female with a past medical history significant for recurrent urinary tract infection has been brought to the hospital for mental status changes positive the concerning for symptomatic UTI. On today's evaluation that is 07/07/2022, the patient continues to be afebrile patient is more awake and alert today she is breathing comfortably on room air, the patient denies any chest pain shortness of breath or cough no abdominal pain and no diarrhea has been reported Objective - Vital Signs Vital signs: Vital Signs Temp 97.9 F 07/07/22 08:00 Pulse 81 07/07/22 08:00 Resp 16 07/07/22 08:00 BP 112/61 07/07/22 08:00 Pulse Ox 99 07/07/22 08:00 FiO2 Intake & Output 07/06/22 07/07/22 07/07/22 18:59 06:59 18:59 Intake Total 472 474 Output Total 500 Balance 472 -500 474 Weight 40.823 kg Intake: Oral 472 474 Output: Urine 500 Other: Voiding Method Indwelling Catheter Indwelling Catheter Indwelling Catheter # Bowel Movements 1 - Exam GENERAL DESCRIPTION: An elderly female lying in bed in no distress RESPIRATORY SYSTEM: Unlabored breathing , decreased breath sounds at bases HEART: S1 S2 regular rate and rhythm , ABDOMEN: Soft , no tenderness EXTREMITIES: No edema feet - Labs CBC & Chem 7: 07/07/22 07:47 07/07/22 07:47 Labs: Abnormal Lab Results - Last 24 Hours (Table) 07/07/22 07/07/22 Range/Units 07:47 07:47 RBC 3.59 L (3.80-5.40) m/uL Hgb 10.0 L (11.4-16.0) gm/dL Hct 31.4 L (34.0-46.0) % Chloride 115 H (98-107) mmol/L Carbon Dioxide 20 L (22-30) mmol/L Calcium 8.1 L (8.4-10.2) mg/dL Total Protein 6.1 L (6.3-8.2) g/dL Albumin 2.6 L (3.5-5.0) g/dL Microbiology - Last 24 Hours (Table) 07/03/22 19:17 Urine Culture - Final Urine,Catheterized Proteus mirabilis Assessment and Plan (1) UTI (urinary tract infection) Current Visit: Yes Status: Acute Code(s): N39.0 - URINARY TRACT INFECTION, SITE NOT SPECIFIED SNOMED Code(s): 39438240 Plan: 1patient present hospitalized weakness significantly positive UA and mental status changes concerning for UTI that has been typical of her admission to the hospital for UTI likely from enteric gram-negative pathogen. 2- cefuroxime ALLERGY that will limit the number of antibiotics safe to use. 3patient urine cultures has been finalized as Proteus that is sensitive to Unasyn which will be continued while inpatient finishing therapy with oral Augmentin Time with Patient: Less than 30
[2022-07-07] MEDS: DONEPEZIL 10 MG TAB PO SCH (20:14)
[2022-07-08] MEDS: LEVOTHYROXINE 50 MCG TAB PO SCH (06:02)
[2022-07-08] MEDS: SODIUM CHLORIDE 0.9% 1,000 ML IV SCH ×3 (06:02→16:59)
[2022-07-08] MEDS: PANTOPRAZOLE 40 MG TABLET PO SCH (06:02)
[2022-07-08] MEDS: AMPICILLIN-SULBACTAM 3 GM in SODIUM CHLORIDE 0.9% 100 ML IVPB SCH ×3 (06:02→21:09)
--- NOTE | 2022-07-08 07:33 | PN ---
PROGRESS NOTE SUBJECTIVE: An 87-year-old white female with drug-resistant UTI susceptible only to IV antibiotics. She will need a PICC line to go home with IV PICC line. OBJECTIVE: CARDIOVASCULAR: S1, S2. LUNGS: Clear. GI: Soft. HEMATOLOGY: Negative Homans. PSYCH: Fair mood and affect. NEUROLOGIC: Alert and oriented x1. She is pleasantly confused . Remains on IV Zosyn. She will get a PICC line, go home on that on Saturday. Continue home medicines include Protonix, K-Dur, Aricept, Namenda, Synthroid, Ventolin inhaler. Hemoglobin is 10, white count is 8.2. Sodium 141, potassium 4.1, creatinine 0.54. PLAN: Continue current IV antibiotics PICC line on Saturday. PROGNOSIS: Guarded. MMVALENTINOL / IJN: [id number] /
[2022-07-08] MEDS: ALBUTEROL NEBULIZED 2.5 MG/3 ML INHALATION SCH ×2 (07:49→20:42)
[2022-07-08] MEDS: IPRATROPIUM 0.5 MG/2.5 ML NEBU INHALATION SCH ×2 (07:49→20:42)
[2022-07-08] MEDS: MULTIVITAMINS, THERA 1 EACH TAB PO SCH (09:30)
[2022-07-08] MEDS: POTASSIUM CHLORIDE ER 20 MEQ TAB.ER PO SCH (09:30)
[2022-07-08] MEDS: MEMANTINE 5 MG TAB PO SCH ×2 (09:30→20:33)
[2022-07-08] MEDS: ASPIRIN 81 MG PO SCH (09:30)
[2022-07-08 10:43] LABS: ALT 15 U/L (4-34); AST 22 U/L (14-36); African American GFR (CKD) >90 (>60 ml/min/1.73 sqM); Albumin 2.5 g/dL (3.5-5.0); Albumin/Globulin Ratio 0.7; Alkaline Phosphatase 53 U/L (38-126); Anion Gap 5 mmol/L; Blood Urea Nitrogen 11 mg/dL (7-17); Calcium 8.1 mg/dL (8.4-10.2); Carbon Dioxide 20 mmol/L (22-30); Chloride 114 mmol/L (98-107); Globulin 3.4 g/dL; Glucose 152 mg/dL (74-99); Non-African American GFR(CKD) 86 (>60 ml/min/1.73 sqM); Potassium 4.1 mmol/L (3.5-5.1); Sodium 139 mmol/L (137-145); Total Bilirubin 0.3 mg/dL (0.2-1.3); Total Protein 5.9 g/dL (6.3-8.2)
[2022-07-08 10:47] LABS: Basophils # (A) 0.1 k/uL (0-0.2); Basophils % (A) 1 %; Eosinophils # (A) 0.6 k/uL (0-0.7); Eosinophils % (A) 6 %; HCT 32.5 % (34.0-46.0); HGB 10.9 gm/dL (11.4-16.0); Lymphocytes # (A) 1.5 k/uL (1.0-4.8); Lymphocytes % (A) 16 %; MCH 28.5 pg (25.0-35.0); MCHC 33.6 g/dL (31.0-37.0); MCV 84.8 fL (80.0-100.0); Mean Platelet Volume 7.7; Monocytes # (A) 0.5 k/uL (0-1.0); Monocytes % (A) 5 %; Neutrophils # (A) 6.6 k/uL (1.3-7.7); Neutrophils % (A) 70 %; Platelet Count 299 k/uL (150-450); RBC 3.83 m/uL (3.80-5.40); RDW 15.8 % (11.5-15.5); WBC 9.4 k/uL (3.8-10.6)
--- NOTE | 2022-07-08 16:40 | P.PN ---
Subjective Progress Note Date: 07/08/22 Principal diagnosis: Urinary tract infection Patient is 87 year female with a past medical history significant for recurrent urinary tract infection has been brought to the hospital for mental status changes positive the concerning for symptomatic UTI. On today's evaluation that is 07/08/2022, the patient remains to be afebrile patient is more awake and alert the patient is breathing comfortably on room air, the patient denies any chest pain shortness of breath or cough no abdominal pain and no diarrhea has been reported Objective - Vital Signs Vital signs: Vital Signs Temp 97.4 F L 07/08/22 14:00 Pulse 89 07/08/22 14:00 Resp 16 07/08/22 14:00 BP 111/62 07/08/22 14:00 Pulse Ox 98 07/08/22 14:00 FiO2 Intake & Output 07/07/22 07/08/22 07/08/22 18:59 06:59 18:59 Intake Total 1064 236 Output Total 475 650 Balance 589 -650 236 Intake: Oral 1064 236 Output: Urine 475 650 Other: Voiding Method Indwelling Catheter Indwelling Catheter - Exam GENERAL DESCRIPTION: An elderly female lying in bed in no distress RESPIRATORY SYSTEM: Unlabored breathing , decreased breath sounds at bases HEART: S1 S2 regular rate and rhythm , ABDOMEN: Soft , no tenderness EXTREMITIES: No edema feet - Labs CBC & Chem 7: 07/08/22 10:05 07/08/22 10:05 Labs: Abnormal Lab Results - Last 24 Hours (Table) 07/08/22 07/08/22 Range/Units 10:05 10:05 Hgb 10.9 L (11.4-16.0) gm/dL Hct 32.5 L (34.0-46.0) % RDW 15.8 H (11.5-15.5) % Chloride 114 H (98-107) mmol/L Carbon Dioxide 20 L (22-30) mmol/L Creatinine 0.50 L (0.52-1.04) mg/dL Glucose 152 H (74-99) mg/dL Calcium 8.1 L (8.4-10.2) mg/dL Total Protein 5.9 L (6.3-8.2) g/dL Albumin 2.5 L (3.5-5.0) g/dL Assessment and Plan (1) UTI (urinary tract infection) Current Visit: Yes Status: Acute Code(s): N39.0 - URINARY TRACT INFECTION, SITE NOT SPECIFIED SNOMED Code(s): 09087599 Plan: 1patient present hospitalized weakness significantly positive UA and mental status changes concerning for UTI that has been typical of her admission to the hospital for UTI likely from enteric gram-negative pathogen. 2- cefuroxime ALLERGY that will limit the number of antibiotics safe to use. 3patient urine cultures has been finalized as Proteus that is sensitive to Unasyn patient seemed to have shown clinical improvement will continue with Unasyn while inpatient and finishing therapy with oral Augmentin Time with Patient: Less than 30
[2022-07-08] MEDS: DONEPEZIL 10 MG TAB PO SCH (20:33)
[2022-07-09] MEDS: SODIUM CHLORIDE 0.9% 1,000 ML IV SCH ×2 (00:10→05:41)
[2022-07-09] MEDS: LEVOTHYROXINE 50 MCG TAB PO SCH (05:41)
[2022-07-09] MEDS: PANTOPRAZOLE 40 MG TABLET PO SCH (05:41)
[2022-07-09] MEDS: AMPICILLIN-SULBACTAM 3 GM in SODIUM CHLORIDE 0.9% 100 ML IVPB SCH (05:41)
[2022-07-09 08:09] VITALS: RESP 16
--- NOTE | 2022-07-09 08:54 | US ---
EXAMINATION TYPE: US kidneys/renal and bladder DATE OF EXAM: 07/09/2022 Exam done portable COMPARISON: NONE CLINICAL HISTORY: uti and bacteremia. EXAM MEASUREMENTS: Right Kidney: 9.3 x 4.0 x 4.0 cm Left Kidney: 9.2 x 4.9 x 4.1 cm Right Kidney: 2.2cm anechoic area medial mid pole - ?parapelvic cyst vs. dilated renal pelvis Left Kidney: No hydronephrosis or masses seen Bladder: not distended - good catheter There is no evidence for left-sided hydronephrosis at this point in time. No nephrolithiasis is seen . No masses are identified. IMPRESSION: 1. Parapelvic cysts versus dilated right renal pelvis.
[2022-07-09] MEDS ORDERED: POTASSIUM BICARBONATE/CIT AC 20 MEQ TABLET.EFF PO SCH (09:00)
[2022-07-09] MEDS: ALBUTEROL NEBULIZED 2.5 MG/3 ML INHALATION SCH (09:04)
[2022-07-09] MEDS: IPRATROPIUM 0.5 MG/2.5 ML NEBU INHALATION SCH (09:04)
[2022-07-09] MEDS: ASPIRIN 81 MG PO SCH (09:24)
[2022-07-09] MEDS: MULTIVITAMINS, THERA 1 EACH TAB PO SCH (09:24)
[2022-07-09] MEDS: MEMANTINE 5 MG TAB PO SCH (09:24)
[2022-07-09] MEDS ORDERED: AMOXIC-POT CLAV 875-125MG 1 EACH TAB PO SCH (12:45)
[2022-07-09 14:42] VITALS: BP 139/72; PULSE 101; TEMP 98.4
--- NOTE | 2022-07-09 15:58 | CDI ---
Documentation Clarification Form Date: 07/09/2022 3:21:08 PM From: Diaen Monsivais RN, CCDS Admit Date: 07/06/2022 12:24:00 PM Patient Name: Emely Whiting Visit Number: [id number] Discharge Date: ATTENTION: The Clinical Documentation Specialists (CDI) and [facility] Coding Staff appreciate your assistance in clarifying documentation. Please respond to the clarification below the line at the bottom and electronically sign. The CDI & [facility] Coding staff will review the response and follow-up if needed. Please note: Queries are made part of the Legal Health Record. If you have any questions, please contact the author of this message via ITS. Dr. Victor Hugo Zhong A stage II pressure ulcer on buttock is documented by Nursing Wound assessment and RD consult. Based on this information and the finding below, is there an additional diagnosis that is clinically appropriate for this patient? History/Risk Factors: Breast cancer, UTI, COPD, CHF Clinical Indicators: 87-year-old female presented with altered mental status, ruled in for UTI. Patient has a BMI of 15.4 Location: Coccyx Wound description: Scant amount drainage Treatment: Turn and Positing Q2 and rounding hourly. Zinc paste per protocol Please clarify the stage of pressure ulcer, buttock , if known: [ ] Stage 1 Pressure Ulcer, buttock [insert location] [ ] Stage 2 Pressure Ulcer, buttock [ ] Other condition, please specify [ ] Unable to determine Clinical Definitions: Stage 1 Pressure Ulcer: intact skin, non-blanching redness of local area Stage 2 Pressure Ulcer: Partial thickness, loss of dermis, pink wound bed Stage 3 Pressure Ulcer: Full thickness tissue loss Stage 4 Pressure Ulcer: Full thickness tissue loss with exposed bone, tendon, or muscle. Unstageable pressure ulcer: Full thickness tissue loss in which the base of the ulcer is covered by slough (yellow, pierson, aguilar, green or brown) and/or eschar (pierson, brown or black) in the wound bed. (Template Last Revised: May 2020) MTDD
--- NOTE | 2022-07-09 16:23 | CDI ---
Documentation Clarification Form Date: 07/09/2022 3:59:14 PM From: Diane Monsivais RN, CCDS Admit Date: 07/06/2022 12:24:00 PM Patient Name: Emely Whiting Visit Number: [id number] Discharge Date: ATTENTION: The Clinical Documentation Specialists (CDI) and [facility] Coding Staff appreciate your assistance in clarifying documentation. Please respond to the clarification below the line at the bottom and electronically sign. The CDI & [facility] Coding staff will review the response and follow-up if needed. Please note: Queries are made part of the Legal Health Record. If you have any questions, please contact the author of this message via ITS. Dr. Victor Hugo Zhong UTI is documented in the ED, H/P and subsequent progress notes, and patient has chronic Kurtz catheter. Additional clarification regarding the etiology of the UTI is requested. History/Risk Factors: Breast cancer, recurrent UTI, COPD, CHF, Dementia, Clinical Indicators: 87-year-old female presented with altered mental status, ruled in for UTI. Patient has a BMI of 15.4 07/03 Vital signs 122/69 94 18 98.3 92 % RA 07/03 Urinalysis: Leukocyte Esterase -Large, WBC >182 07/03 Urine culture: Proteus mirabilis 07/03 Lab results: WBC 10.0 Treatment: Replaced Kurtz catheter (placed 06/30/22 [facility] per documentation) Unasyn 3 GM IVPB 07/04-07/09 Augmentin 875-125 PO Q 12 HR 07/09 Please clarify the etiology of the UTI, if known [ ] Kurtz catheter [ ] UTI not related to catheter [ ] Other condition, please specify [ ] Unable to determine (Template Last Revised: May 2020) MTDD
--- NOTE | 2022-07-09 16:57 | P.PN ---
Subjective Progress Note Date: 07/09/22 Principal diagnosis: Urinary tract infection Patient is 87 year female with a past medical history significant for recurrent urinary tract infection has been brought to the hospital for mental status changes positive the concerning for symptomatic UTI. On today's evaluation that is 07/09/2022, the patient continues to be afebrile patient is breathing comfortably on room air, the patient denies any chest pain shortness of breath or cough no abdominal pain and no diarrhea has been reported, patient did lost her IV per the nursing staff Objective - Vital Signs Vital signs: Vital Signs Temp 98.6 F 07/09/22 08:00 Pulse 99 07/09/22 08:00 Resp 16 07/09/22 08:00 BP 125/74 07/09/22 08:00 Pulse Ox 98 07/09/22 09:04 FiO2 21 07/09/22 09:04 Intake & Output 07/08/22 07/09/22 07/09/22 18:59 06:59 18:59 Intake Total 354 90 Output Total 500 600 Balance -146 -600 90 Intake: Oral 354 90 Output: Urine 500 600 Other: Voiding Method Indwelling Catheter Indwelling Catheter # Bowel Movements 2 - Exam GENERAL DESCRIPTION: An elderly female lying in bed in no distress RESPIRATORY SYSTEM: Unlabored breathing , decreased breath sounds at bases HEART: S1 S2 regular rate and rhythm , ABDOMEN: Soft , no tenderness EXTREMITIES: No edema feet - Labs CBC & Chem 7: 07/08/22 10:05 07/08/22 10:05 Assessment and Plan (1) UTI (urinary tract infection) Status: Acute Code(s): N39.0 - URINARY TRACT INFECTION, SITE NOT SPECIFIED SNOMED Code(s): 20980939 Plan: 1patient present hospitalized weakness significantly positive UA and mental status changes concerning for UTI that has been typical of her admission to the hospital for UTI likely from enteric gram-negative pathogen. 2- cefuroxime ALLERGY that will limit the number of antibiotics safe to use. 3patient urine cultures has been finalized as Proteus that is sensitive to Unasyn , patient did have ultrasound did not show any hydronephrosis or nephrolithiasis, the patient antibiotics switched to Augmentin to continue for about a week ago the patient follow-up Time with Patient: Less than 30
--- NOTE | 2022-07-11 10:14 | CDI ---
Documentation Clarification Form Date: 07/11/2022 10:00:11 AM From: Diane Monsivais RN, CCDS Phone: [phone] Admit Date: 07/06/2022 12:24:00 PM Patient Name: Emely Whiting Visit Number: [id number] Discharge Date: 07/09/2022 4:35:00 PM ATTENTION: The Clinical Documentation Specialists (CDI) and [facility] Coding Staff appreciate your assistance in clarifying documentation. Please respond to the clarification below the line at the bottom and electronically sign. The CDI & [facility] Coding staff will review the response and follow-up if needed. Please note: Queries are made part of the Legal Health Record. If you have any questions, please contact the author of this message via ITS. Dr. Victor Hugo Zhong Malnutrition is documented in the H/P. Additional clarification regarding the severity of malnutrition is requested. History/Risk Factors: Breast cancer, recurrent UTI, COPD, CHF, Dementia, Clinical Indicators: 87-year-old female presented with altered mental status, ruled in for UTI. H/P General examination: weak, cachectic, malnourished. 07/03 Vital signs 122/69 94 18 98.3 92 % RA Insufficient energy intake: Yes, Poor BMI of 15.4 Weight Loss: Underweight 5 ft. 4 in Loss of subcutaneous fat: Cachectic Decreased hand cushion assembler strength: generalized weakness RD Consult Assessment: Patient refusing meals while inpatient Treatment: Dietary Consult: Yes General/healthful diet Monitor PO and oral supplements intake Supplements: Ensure TID Increase PO intake from 50% to 75 % Please clarify the type of malnutrition, if known: [ ] Mild Protein-Calorie Malnutrition [ ] Moderate Protein-Calorie Malnutrition [ ] Severe Protein-Calorie Malnutrition [ ] Other condition, please specify [ ] Unable to Determine (Template Last Revised: May 2020) MTDD
--- NOTE | 2022-07-12 18:38 | PN ---
PROGRESS NOTE Stage II pressure ulcer, buttocks. MMODL / IJN: [id number] /
--- NOTE | 2022-07-13 01:17 | PN ---
PROGRESS NOTE Moderate protein-calorie malnutrition. MMODL / IJN: [id number] /
--- NOTE | 2022-07-13 01:32 | PN ---
PROGRESS NOTE UTI, not related to her Kurtz catheter. MMODL / IJN: [id number] /
== END 2022-07-09 16:35 | disposition home health service (06) | DRG 689 ==
LOC: EC 18:21 → 6NMEDSUR 21:27 → OBSVTOIN 07-06 12:24
PROVIDERS: ADMIT Family Medicine; ATTEND Family Medicine
DX: N39.0 Urinary tract infection, site not specified (principal); G93.41 Metabolic encephalopathy; J44.1 Chronic obstructive pulmonary disease with (acute) exacerbation; G91.2 (Idiopathic) normal pressure hydrocephalus; E46 Unspecified protein-calorie malnutrition; Z68.1 Body mass index [BMI] 19.9 or less, adult; C79.51 Secondary malignant neoplasm of bone; Z16.30 Resistance to unspecified antimicrobial drugs; I50.9 Heart failure, unspecified; E03.9 Hypothyroidism, unspecified; K21.9 Gastro-esophageal reflux disease without esophagitis; K44.9 Diaphragmatic hernia without obstruction or gangrene; F03.90 Unspecified dementia, unspecified severity, without behavioral disturbance, psychotic disturbance, mood disturbance, and anxiety; Z79.82 Long term (current) use of aspirin; Z79.890 Hormone replacement therapy; Z79.899 Other long term (current) drug therapy; Z80.3 Family history of malignant neoplasm of breast; Z82.49 Family history of ischemic heart disease and other diseases of the circulatory system; Z85.3 Personal history of malignant neoplasm of breast; Z87.440 Personal history of urinary (tract) infections; Z90.11 Acquired absence of right breast and nipple; Z86.14 Personal history of Methicillin resistant Staphylococcus aureus infection
CPT/HCPCS: 36415; 76770; 80053; 81001; 83605; 83735; 83880; 84100; 84484; 85025; 85610; 85730; 87077; 87086; 87186; 93005; 94640; 94760; 96361; 96365; 99285

== ENCOUNTER 2022-08-23 16:05 | Emergency (ER) | payer MEDICARE ==
[2022-08-23 16:14] VITALS: RESP 18; TEMP 98
--- NOTE | 2022-08-23 16:31 | ED ---
General Adult HPI - General Chief complaint: Urogenital Stated complaint: poss UTI Time Seen by Provider: 08/23/22 16:10 Source: patient, EMS, RN notes reviewed, old records reviewed Mode of arrival: EMS Limitations: no limitations - History of Present Illness Initial comments: This is an 87-year-old female who presents to the emergency department with a diagnosis of urinary tract infection. She was started on Levaquin for at least 6 days. She has a Kurtz in place it does not appear that has been changed recently. Patient has no complaints whatsoever she denies any abdominal pain she denies any nausea vomiting she denies any fever chills she states she doesn't even really want to be here. Patient however is only alert and oriented 1 - Related Data Home Medications Medication Instructions Recorded Confirmed Levothyroxine Sodium [Synthroid] 50 mcg PO DAILY 04/01/17 08/23/22 Multivitamins, Thera [Multivitamin 1 tab PO DAILY 11/02/19 08/23/22 (formulary)] Omeprazole 40 mg PO DAILY 11/02/19 08/23/22 Sennosides [Senokot] 8.6 mg PO DAILY PRN 05/25/22 08/23/22 Aspirin EC [Ecotrin Low Dose] 81 mg PO DAILY 06/15/22 08/23/22 Ferrous Sulfate [Iron (65 MG 325 mg PO DAILY 07/24/22 08/23/22 Elemental)] Previous Rx's Medication Instructions Recorded Potassium Chloride ER [K-Dur 20] 20 meq PO DAILY 90 Days #90 tab 05/31/22 Donepezil [Aricept] 10 mg PO HS 90 Days #90 tab 06/19/22 Memantine [Namenda] 5 mg PO BID 90 Days #180 tab 06/19/22 Acetaminophen Tab [Tylenol Tab] 650 mg PO Q4H PRN #30 tablet 07/31/22 Cefdinir [Omnicef] 300 mg PO Q12HR #20 capsule 08/23/22 Allergies Allergy/AdvReac Type Severity Reaction Status Date / Time cefuroxime Allergy Intermediate Hives Verified 07/24/22 13:00 Review of Systems ROS Statement: Those systems with pertinent positive or pertinent negative responses have been documented in the HPI. ROS Other: All systems not noted in ROS Statement are negative. 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 Past Anesthesia/Blood Transfusion Reactions: No Reported Reaction Past Psychological History: No Psychological Hx Reported Smoking Status: Unknown if ever smoked Past Alcohol Use History: None Reported Past Drug Use History: None Reported - Past Family History Father Additional Family Medical History / Comment(s): heart disease. Mother Additional Family Medical History / Comment(s): heart disease. Sister(s) Family Medical History: Cancer Additional Family Medical History / Comment(s): 3 SISTERS WITH BREAST CA General Exam - General Exam Comments Initial Comments: GENERAL: Patient is well-developed and well-nourished. Patient is nontoxic and well- hydrated and is in no acute distress. ENT: Neck is soft and supple. No significant lymphadenopathy is noted. Oropharynx is clear. Moist mucous membranes. Neck has full range of motion without eliciting any pain. EYES: The sclera were anicteric and conjunctiva were pink and moist. Extraocular movements were intact and pupils were equal round and reactive to light. Eyelids were unremarkable. PULMONARY: Unlabored respirations. Good breath sounds bilaterally. No audible rales rhonchi or wheezing was noted. CARDIOVASCULAR: There is a regular rate and rhythm without any murmurs gallops or rubs. ABDOMEN: Soft and nontender with normal bowel sounds. SKIN: Skin is clear with no lesions or rashes and otherwise unremarkable. NEUROLOGIC: Patient is alert and oriented 1. Cranial nerves II through XII are grossly intact. Motor and sensory are also intact. Normal speech, volume and content. Symmetrical smile. MUSCULOSKELETAL: Normal extremities with adequate strength and full range of motion. LYMPHATICS: No significant lymphadenopathy is noted PSYCHIATRIC: Normal psychiatric evaluation. Limitations: no limitations Course Vital Signs 08/23/22 08/23/22 08/23/22 16:08 16:14 18:21 Temperature 98.0 F Pulse Rate 87 87 Respiratory 18 18 Rate Blood Pressure 96/51 111/59 O2 Sat by Pulse 98 96 Oximetry Medical Decision Making - Medical Decision Making Was pt. sent in by a medical professional or institution ([facility], PAYROLL TAX SPECIALIST, urgent care, hospital, or usp...) When possible be specific @ -Sent in by the usp Did you speak to anyone other than the patient for history (EMS, parent, family, police, friend...)? What history was obtained from this source @ -[No] Did you review nursing and triage notes (agree or disagree)? Why? @ -[I reviewed and agree with nursing and triage notes] Were old charts reviewed (outside hosp., previous admission, EMS record, old EKG, old radiological studies, urgent care reports/EKG's, usp records)? Report findings @ -I reviewed patient's old charts and lab work Differential Diagnosis (chest pain, altered mental status, abdominal pain women, abdominal pain men, vaginal bleeding, weakness, fever, dyspnea, syncope, headache, dizziness, GI bleed, back pain, seizure, CVA, palpatations, mental health, musculoskeletal)? @ -[not applicable] EKG interpreted by me (3pts min.). @ -[As above] X-rays interpreted by me (1pt min.). @ -[None done] CT interpreted by me (1pt min.). @ -[None done] U/S interpreted by me (1pt. min.). @ -[None done] What testing was considered but not performed or refused? (CT, X-rays, U/S, labs)? Why? @ -[None] What meds were considered but not given or refused? Why? @ -[None] Did you discuss the management of the patient with other professionals (professionals i.e. [facility], PAYROLL TAX SPECIALIST, lab, RT, psych nurse, social worker health services, line appliance assembler, teacher, transportation security officer, housing case manager)? Give summary @ -[No] Was smoking cessation discussed for >3mins.? @ -[No] Was critical care preformed (if so, how long)? @ -[No] Were there social determinants of health that impacted care today? How? (Homelessness, low income, unemployed, alcoholism, drug addiction, transportation, low edu. Level, literacy, decrease access to med. care, custodial, rehab)? @ -[No] Was there de-escalation of care discussed even if they declined (Discuss DNR or withdrawal of care, Hospice)? DNR status @ -[No] What co-morbidities impacted this encounter? (DM, HTN, Smoking, COPD, CAD, Cancer, CVA, ARF, Chemo, Hep., AIDS, mental health diagnosis, sleep apnea, morbid obesity)? @ -[None] Was patient admitted / discharged? Hospital course, mention meds given and route, prescriptions, significant lab abnormalities, going to OR and other pertinent info. @ -Patient's catheter was replaced and fresh urine was sent it does seem to be a contaminated. I reviewed the sensitivity of the urine done on 519 it showed that it was sensitive to the Levaquin for one of the bacteria but not the other so it does state that both bacteria that they found were sensitive to cephalosporin so I will start the patient on cephalosporin. Patient remains asymptomatic Undiagnosed new problem with uncertain prognosis? @ -[No] Drug Therapy requiring intensive monitoring for toxicity (Heparin, Nitro, Insulin, Cardizem)? @ -[No] Were any procedures done? @ -[No] Diagnosis/symptom? @ -Urinary tract infection Acute, or Chronic, or Acute on Chronic? @ -Acute Uncomplicated (without systemic symptoms) or Complicated (systemic symptoms)? @ -Complicated Side effects of treatment? @ -[No] Exacerbation, Progression, or Severe Exacerbation? @ -[No] Poses a threat to life or bodily function? How? (Chest pain, [place], [place], pneumonia, PE, COPD, DKA, ARF, appy, cholecystitis, CVA, Diverticulitis, Homicidal, Suicidal, threat to staff... and all critical care pts) @ -No - Lab Data Result diagrams: 08/23/22 16:45 08/23/22 16:45 Lab Results 08/23/22 08/23/22 08/23/22 Range/Units 16:45 16:45 18:16 WBC 7.5 (3.8-10.6) k/uL RBC 3.72 L (3.80-5.40) m/uL Hgb 10.6 L (11.4-16.0) gm/dL Hct 33.4 L (34.0-46.0) % MCV 89.9 (80.0-100.0) fL MCH 28.6 (25.0-35.0) pg MCHC 31.8 (31.0-37.0) g/dL RDW 16.8 H (11.5-15.5) % Plt Count 283 (150-450) k/uL MPV 7.5 Neutrophils % 61 % Lymphocytes % 25 % Monocytes % 6 % Eosinophils % 6 % Basophils % 1 % Neutrophils # 4.6 (1.3-7.7) k/uL Lymphocytes # 1.9 (1.0-4.8) k/uL Monocytes # 0.4 (0-1.0) k/uL Eosinophils # 0.4 (0-0.7) k/uL Basophils # 0.1 (0-0.2) k/uL Hypochromasia Slight Anisocytosis Slight Sodium 138 (137-145) mmol/L Potassium 4.4 (3.5-5.1) mmol/L Chloride 108 H (98-107) mmol/L Carbon Dioxide 23 (22-30) mmol/L Anion Gap 7 mmol/L BUN 21 H (7-17) mg/dL Creatinine 0.83 (0.52-1.04) mg/dL Est GFR (CKD-EPI)AfAm 73 (>60 ml/min/1.73 sqM) Est GFR (CKD-EPI)NonAf 63 (>60 ml/min/1.73 sqM) Glucose 111 H (74-99) mg/dL Calcium 8.3 L (8.4-10.2) mg/dL Magnesium 2.1 (1.6-2.3) mg/dL Total Bilirubin 0.3 (0.2-1.3) mg/dL AST 23 (14-36) U/L ALT 13 (4-34) U/L Alkaline Phosphatase 53 (38-126) U/L Total Protein 6.6 (6.3-8.2) g/dL Albumin 3.1 L (3.5-5.0) g/dL Urine Color Yellow Urine Appearance Turbid H (Clear) Urine pH 6.0 (5.0-8.0) Ur Specific [place] 1.021 (1.001-1.035) Urine Protein 2+ H (Negative) Urine Glucose (UA) Negative (Negative) Urine Ketones Negative (Negative) Urine Blood Moderate H (Negative) Urine Nitrite Negative (Negative) Urine Bilirubin Negative (Negative) Urine Urobilinogen <2.0 (<2.0) mg/dL Ur Leukocyte Esterase Large H (Negative) Urine RBC 72 H (0-5) /hpf Urine WBC >182 H (0-5) /hpf Urine WBC Clumps Many H (None) /hpf Ur Squamous Epith Cells 7 H (0-4) /hpf Urine Bacteria Many H (None) /hpf Urine Mucus Moderate H (None) /hpf Disposition Clinical Impression: Urinary tract infection Disposition: HOME SELF-CARE Condition: Good Instructions (If sedation given, give patient instructions): Urinary Tract Infection in Women (ED) Prescriptions: Cefdinir [Omnicef] 300 mg PO Q12HR #20 capsule Is patient prescribed a controlled substance at d/c from ED?: No Referrals: Buck Zhong MD [Primary Care Provider] - 1-2 days Time of Disposition: 18:51
[2022-08-23 16:55] LABS: Anisocytosis Slight; Basophils # (A) 0.1 k/uL (0-0.2); Basophils % (A) 1 %; Eosinophils # (A) 0.4 k/uL (0-0.7); Eosinophils % (A) 6 %; HCT 33.4 % (34.0-46.0); HGB 10.6 gm/dL (11.4-16.0); Hypochromasia Slight; Lymphocytes # (A) 1.9 k/uL (1.0-4.8); Lymphocytes % (A) 25 %; MCH 28.6 pg (25.0-35.0); MCHC 31.8 g/dL (31.0-37.0); MCV 89.9 fL (80.0-100.0); Mean Platelet Volume 7.5; Monocytes # (A) 0.4 k/uL (0-1.0); Monocytes % (A) 6 %; Neutrophils # (A) 4.6 k/uL (1.3-7.7); Neutrophils % (A) 61 %; Platelet Count 283 k/uL (150-450); RBC 3.72 m/uL (3.80-5.40); RDW 16.8 % (11.5-15.5); WBC 7.5 k/uL (3.8-10.6)
[2022-08-23 17:10] LABS: Albumin 3.1 g/dL (3.5-5.0); Calcium 8.3 mg/dL (8.4-10.2); Magnesium 2.1 mg/dL (1.6-2.3); Potassium 4.4 mmol/L (3.5-5.1); Total Bilirubin 0.3 mg/dL (0.2-1.3); Total Protein 6.6 g/dL (6.3-8.2)
[2022-08-23 18:31] LABS: Appearance,Urine Turbid (Clear); Bacteria,Urine Many /hpf; Bilirubin,Urine Negative (Negative); Blood,Urine Moderate (Negative); Color,Urine Yellow; Glucose,Urine (UA) Negative (Negative); Ketones,Urine Negative (Negative); Leukocyte Esterase,Urine Large (Negative); Mucus,Urine Moderate /hpf; Nitrite,Urine Negative (Negative); Protein,Urine 2+ (Negative); RBC,Urine 72 /hpf (0-5); Specific Gravity,Urine 1.021 (1.001-1.035); Squamous Epithelial Cell,Urine 7 /hpf (0-4); Urobilinogen,Urine <2.0 mg/dL (<2.0); WBC,Urine >182 /hpf (0-5)
[2022-08-23] MEDS ORDERED: cefTRIAXone IN SWFI 1,000 MG/10 ML SYRINGE IVP STA (18:44)
[2022-08-23 19:29] VITALS: PULSE 85
[2022-08-23 21:44] VITALS: BP 101/56
== END 2022-08-23 22:11 | disposition home or self-care (01) ==
LOC: EC 16:05
DX: N39.0 Urinary tract infection, site not specified (principal); I50.9 Heart failure, unspecified; J44.9 Chronic obstructive pulmonary disease, unspecified; F03.90 Unspecified dementia, unspecified severity, without behavioral disturbance, psychotic disturbance, mood disturbance, and anxiety; K21.9 Gastro-esophageal reflux disease without esophagitis; E07.9 Disorder of thyroid, unspecified; Z79.890 Hormone replacement therapy; Z79.82 Long term (current) use of aspirin; Z79.899 Other long term (current) drug therapy; Z88.1 Allergy status to other antibiotic agents
CPT/HCPCS: 99284 ×2; 96374 ×2; 36415; 80053; 83735; 85025; 81001; 51702; J0696

== ENCOUNTER 2022-09-10 01:33 | Emergency (ER) | payer MEDICARE ==
--- NOTE | 2022-09-10 03:03 | ED ---
General Adult HPI - General Chief complaint: Fall Stated complaint: Fall Time Seen by Provider: 09/10/22 01:39 Source: EMS Mode of arrival: EMS - History of Present Illness Initial comments: This is an 87-year-old female who presents emergency department via EMS after reported fall at her assisted living facility. Was reported that the patient was found on the ground with a contusion noted to the right side of her face as well as skin tears on the left upper arm as well as the bilateral knees. The patient herself was ANO 2, at her baseline and not complaining of any acute pain. The patient was pleasant on my evaluation. It was noted the patient was not on any blood thinners at this time. The patient cannot provide any further history at this time and was resting in bed comfortably. - Related Data Home Medications Medication Instructions Recorded Confirmed Levothyroxine Sodium [Synthroid] 50 mcg PO DAILY 04/01/17 08/23/22 Multivitamins, Thera [Multivitamin 1 tab PO DAILY 11/02/19 08/23/22 (formulary)] Omeprazole 40 mg PO DAILY 11/02/19 08/23/22 Sennosides [Senokot] 8.6 mg PO DAILY PRN 05/25/22 08/23/22 Aspirin EC [Ecotrin Low Dose] 81 mg PO DAILY 06/15/22 08/23/22 Ferrous Sulfate [Iron (65 MG 325 mg PO DAILY 07/24/22 08/23/22 Elemental)] Previous Rx's Medication Instructions Recorded Potassium Chloride ER [K-Dur 20] 20 meq PO DAILY 90 Days #90 tab 05/31/22 Donepezil [Aricept] 10 mg PO HS 90 Days #90 tab 06/19/22 Memantine [Namenda] 5 mg PO BID 90 Days #180 tab 06/19/22 Acetaminophen Tab [Tylenol Tab] 650 mg PO Q4H PRN #30 tablet 07/31/22 Cefdinir [Omnicef] 300 mg PO Q12HR #20 capsule 08/23/22 Allergies Allergy/AdvReac Type Severity Reaction Status Date / Time cefuroxime Allergy Intermediate Hives Verified 07/24/22 13:00 Review of Systems ROS Statement: Those systems with pertinent positive or pertinent negative responses have been documented in the HPI. ROS Other: All systems not noted in ROS Statement are negative. 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 Past Anesthesia/Blood Transfusion Reactions: No Reported Reaction Past Psychological History: No Psychological Hx Reported Smoking Status: Unknown if ever smoked Past Alcohol Use History: None Reported Past Drug Use History: None Reported - Past Family History Father Additional Family Medical History / Comment(s): heart disease. Mother Additional Family Medical History / Comment(s): heart disease. Sister(s) Family Medical History: Cancer Additional Family Medical History / Comment(s): 3 SISTERS WITH BREAST CA General Exam Limitations: altered mental status (ANOx2, at baseline) General appearance: alert, in no apparent distress Head exam: Present: normocephalic, other (Contusion around the right lateral orbit) Eye exam: Present: normal appearance, PERRL, EOMI. Absent: periorbital tenderness Pupils: Present: normal accommodation ENT exam: Present: normal exam, normal oropharynx, mucous membranes moist Neck exam: Present: normal inspection, full ROM Respiratory exam: Present: normal lung sounds bilaterally Cardiovascular Exam: Present: regular rate, normal rhythm, normal heart sounds GI/Abdominal exam: Present: soft, normal bowel sounds Extremities exam: Present: normal inspection, full ROM, other (Skin avulsion noted to the left upper arm, bilateral knees) Back exam: Present: normal inspection, full ROM Neurological exam: Present: alert, altered (ANOx2, at baseline) Psychiatric exam: Present: normal affect, normal mood Skin exam: Present: warm, dry Course Vital Signs 09/10/22 09/10/22 01:36 05:30 Temperature 97.9 F Pulse Rate 81 98 Respiratory 18 18 Rate Blood Pressure 122/60 119/56 O2 Sat by Pulse 99 99 Oximetry Medical Decision Making - Medical Decision Making Was pt. sent in by a medical professional or institution (, PA, RECORDS MANAGEMENT MANAGER, urgent care, hospital, or [facility]...) When possible be specific @ -Yes, nursing facility Did you speak to anyone other than the patient for history (EMS, parent, family, police, friend...)? What history was obtained from this source @ -No Did you review nursing and triage notes (agree or disagree)? Why? @ -I reviewed and agree with nursing and triage notes Were old charts reviewed (outside hosp., previous admission, EMS record, old EKG, old radiological studies, urgent care reports/EKG's, [facility] records)? Report findings @ -No old charts were reviewed Differential Diagnosis (chest pain, altered mental status, abdominal pain women, abdominal pain men, vaginal bleeding, weakness, fever, dyspnea, syncope, headache, dizziness, GI bleed, back pain, seizure, CVA, palpatations, mental health)? @ -Acute intra-cranial hemorrhage, humerus fracture, pelvis fracture EKG interpreted by me (3pts min.). @ -None X-rays interpreted by me (1pt min.). @ -Chest x-ray, humerus x-ray, knee x-ray and pelvis x-ray were all obtained and were interpreted by myself showing no acute fractures. CT interpreted by me (1pt min.). @ -CT head and CT C-spine was obtained and was interpreted by myself showing no acute process. There was noted severely distended esophagus with reflux material layering within the middle esophagus with mild right pleural effusion. There was however no clinical signs of this as the patient was able to tolerate her own secretions and denied of any difficulty in swallowing. U/S interpreted by me (1pt. min.). @ -None done What testing was considered but not performed or refused? (CT, X-rays, U/S, labs)? Why? @ -None What meds were considered but not given or refused? Why? @ -None Did you discuss the management of the patient with other professionals (professionals i.e. Dr., PA, RECORDS MANAGEMENT MANAGER, lab, RT, psych nurse, social psychologist, therapeutic assistant, teacher, pharmaceutical officer, case management assistant)? Give summary @ -No Was smoking cessation discussed for >3mins.? @ -No Was critical care preformed (if so, how long)? @ -No Were there social determinants of health that impacted care today? How? (Homelessness, low income, unemployed, alcoholism, drug addiction, transportation, low edu. Level, literacy, decrease access to med. care, senior care, rehab)? @ -No Was there de-escalation of care discussed even if they declined (Discuss DNR or withdrawal of care, Hospice)? DNR status @ -No What co-morbidities impacted this encounter? (DM, HTN, Smoking, COPD, CAD, Cancer, CVA, ARF, Chemo, Hep., AIDS, mental health diagnosis, sleep apnea, morbid obesity)? @ -None Was patient admitted / discharged? Hospital course, mention meds given and route, prescriptions, significant lab abnormalities, going to OR and other pertinent info. @ -The patient was seen and evaluated emergency department. Physical exam, the patient was resting in bed without any acute distress. The patient was presently confused. Vital signs admission were stable. All imaging was negative and there was no acute findings indicating the patient to be discharged back to her nursing facility safely. The patient did have a skin avulsion that was thoroughly cleaned and bacitracin was placed over this. The patient did continue to remain stable and was discharged back to her nursing facility in stable condition. Undiagnosed new problem with uncertain prognosis? @ -No Drug Therapy requiring intensive monitoring for toxicity (Heparin, Nitro, Insulin, Cardizem)? @ -No Were any procedures done? @ -No Diagnosis/symptom? @ -Fall, skin avulsions Acute, or Chronic, or Acute on Chronic? @ -Acute Uncomplicated (without systemic symptoms) or Complicated (systemic symptoms)? @ -Uncomplicated Side effects of treatment? @ -No Exacerbation, Progression, or Severe Exacerbation? @ -No Poses a threat to life or bodily function? How? (Chest pain, [place], [place], pneumonia, PE, COPD, DKA, ARF, appy, cholecystitis, CVA, Diverticulitis, Homicidal, Suicidal, threat to staff... and all critical care pts) @ -No - Lab Data Lab Results 09/10/22 Range/Units 05:30 Urine Color Light Yellow Urine Appearance Cloudy H (Clear) Urine pH 6.5 (5.0-8.0) Ur Specific [place] 1.011 (1.001-1.035) Urine Protein Negative (Negative) Urine Glucose (UA) Negative (Negative) Urine Ketones Negative (Negative) Urine Blood Negative (Negative) Urine Nitrite Negative (Negative) Urine Bilirubin Negative (Negative) Urine Urobilinogen <2.0 (<2.0) mg/dL Ur Leukocyte Esterase Large H (Negative) Urine RBC 7 H (0-5) /hpf Urine WBC 55 H (0-5) /hpf Urine WBC Clumps Few H (None) /hpf Ur Squamous Epith Cells 1 (0-4) /hpf Urine Bacteria Occasional H (None) /hpf Hyaline Casts 1 (0-2) /lpf Urine Mucus Rare H (None) /hpf Disposition Clinical Impression: Fall, Skin avulsion Disposition: HOME SELF-CARE Condition: Stable Instructions (If sedation given, give patient instructions): Fall Prevention for Older Adults (ED), Skin Avulsion (ED) Is patient prescribed a controlled substance at d/c from ED?: No Referrals: Buck Zhong MD [Primary Care Provider] - 1-2 days Time of Disposition: 06:00
--- NOTE | 2022-09-10 03:49 | CT ---
EXAM: CT Head Without Intravenous Contrast CLINICAL HISTORY: [email or web address] CT Reason: Trauma TECHNIQUE: Axial computed tomography images of the head/brain without intravenous contrast. CTDI is 45.285 mGy and DLP is 1202.5 mGy-cm. This CT exam was performed using one or more of the following dose reduction techniques: automated exposure control, adjustment of the mA and/or kV according to patient size, and/or use of iterative reconstruction technique. COMPARISON: 06/16/2022 FINDINGS: Brain: No hemorrhage, herniation, or mass effect. Chronic microvascular ischemic changes. Ventricles: No hydrocephalus. Age related cerebral volume loss. Bones/joints: Unremarkable. Soft tissues: Unremarkable. Sinuses: Unremarkable. Mastoid air cells: Clear. IMPRESSION: No acute hemorrhage, hydrocephalus, or mass effect. EXAM: CT Cervical Spine Without Intravenous Contrast CLINICAL HISTORY: [email or web address] CT Reason: Trauma TECHNIQUE: Axial computed tomography images of the cervical spine without intravenous contrast. CTDI is 8.485 mGy and DLP is 266.6 mGy-cm. This CT exam was performed using one or more of the following dose reduction techniques: automated exposure control, adjustment of the mA and/or kV according to patient size, and/or use of iterative reconstruction technique. COMPARISON: No relevant prior studies available. FINDINGS: Vertebrae: No acute fracture. Discs/spinal canal/neural foramina: degenerative changes. Soft tissues: No prevertebral swelling. Severely distended esophagus with reflux material layering within the mid esophagus. Mild right pleural effusion. IMPRESSION: No acute fracture or subluxation. Severely distended esophagus with reflux material layering within the mid esophagus. Mild right pleural effusion.
[2022-09-10 04:14] VITALS: RESP 18
[2022-09-10 05:39] LABS: Appearance,Urine Cloudy (Clear); Bacteria,Urine Occasional /hpf; Bilirubin,Urine Negative (Negative); Blood,Urine Negative (Negative); Color,Urine Light Yellow; Glucose,Urine (UA) Negative (Negative); Hyaline Casts,Urine 1 /lpf (0-2); Ketones,Urine Negative (Negative); Leukocyte Esterase,Urine Large (Negative); Mucus,Urine Rare /hpf; Nitrite,Urine Negative (Negative); PH, Urine 6.5 (5.0-8.0); Protein,Urine Negative (Negative); RBC,Urine 7 /hpf (0-5); Specific Gravity,Urine 1.011 (1.001-1.035); Squamous Epithelial Cell,Urine 1 /hpf (0-4); Urobilinogen,Urine <2.0 mg/dL (<2.0); WBC,Urine 55 /hpf (0-5)
--- NOTE | 2022-09-10 05:59 | XR ---
EXAM: XR Chest, 1 View CLINICAL HISTORY: [email or web address] XR Reason: Trauma TECHNIQUE: Frontal view of the chest. COMPARISON: No relevant prior studies available. FINDINGS: Lungs: Unremarkable. No consolidation. Pleural space: Unremarkable. No pneumothorax. Heart: Unremarkable. No cardiomegaly. Mediastinum: Unremarkable. Bones/joints: Osteopenia. Chondrocalcinosis. Vasculature: Atherosclerotic calcifications. IMPRESSION: No acute findings in the chest.
--- NOTE | 2022-09-10 06:00 | XR ---
ADDENDUM - Added by Alexx Boykin M.D. on 09/10/2022 6:02 AM (-07:00) Stable appearance right hip arthroplasty. EXAM: XR Pelvis, 1 or 2 Views CLINICAL HISTORY: [email or web address] XR Reason: Trauma TECHNIQUE: Frontal view of the pelvis. COMPARISON: No relevant prior studies available. FINDINGS: Bones/joints: Osteopenia. Osteoarthritis. Chondrocalcinosis. No acute fracture. No dislocation. Soft tissues: Unremarkable. Vasculature: Vascular calcifications. IMPRESSION: No acute findings in the pelvis.
--- NOTE | 2022-09-10 06:00 | XR ---
EXAM: XR Left Humerus, 2 or More Views CLINICAL HISTORY: [email or web address] XR Reason: Trauma TECHNIQUE: Frontal and lateral views of the left humerus. COMPARISON: No relevant prior studies available. FINDINGS: Bones/joints: Osteopenia. Advanced osteoarthritis. No acute fracture. No dislocation. Soft tissues: Unremarkable. IMPRESSION: No acute findings in the left humerus.
--- NOTE | 2022-09-10 06:02 | XR ---
EXAM: XR Bilateral Knees, 3 Views CLINICAL HISTORY: [email or web address] XR Reason: Trauma TECHNIQUE: Three views of the bilateral knees. COMPARISON: No relevant prior studies available. FINDINGS: Bones/joints: Osteopenia. Osteoarthritis. Chondrocalcinosis. No acute fracture. No dislocation. Soft tissues: Unremarkable. Vasculature: Atherosclerotic calcifications. IMPRESSION: No acute findings in the bilateral knees.
[2022-09-10] MEDS ORDERED: SULFAMETHOX-TMP 800-160MG 1 EACH TAB PO STA (06:16)
[2022-09-10 15:29] VITALS: BP 121/57; PULSE 95; TEMP 98
== END 2022-09-10 10:50 | disposition home or self-care (01) ==
LOC: SUPCPDRO 01:33 → EC 01:33
DX: S41.102A Unspecified open wound of left upper arm, initial encounter (principal); S00.83XA Contusion of other part of head, initial encounter; I50.9 Heart failure, unspecified; J44.9 Chronic obstructive pulmonary disease, unspecified; K21.9 Gastro-esophageal reflux disease without esophagitis; E07.9 Disorder of thyroid, unspecified; Z79.82 Long term (current) use of aspirin; Z79.899 Other long term (current) drug therapy; Z79.890 Hormone replacement therapy; Z88.1 Allergy status to other antibiotic agents; W18.30XA Fall on same level, unspecified, initial encounter
CPT/HCPCS: 70450; 71045; 72125; 72170; 81001; 99285

== ENCOUNTER 2022-09-13 19:53 | Inpatient (IN) | payer MEDICARE ==
[2022-09-13 21:21] LABS: Basophils % (A) 1 %; Eosinophils # (A) 0.3 k/uL (0-0.7); Eosinophils % (A) 4 %; HCT 31.5 % (34.0-46.0); HGB 10.1 gm/dL (11.4-16.0); Lymphocytes # (A) 1.5 k/uL (1.0-4.8); Lymphocytes % (A) 20 %; MCH 28.8 pg (25.0-35.0); MCHC 32.2 g/dL (31.0-37.0); MCV 89.4 fL (80.0-100.0); Mean Platelet Volume 7.3; Monocytes # (A) 0.5 k/uL (0-1.0); Monocytes % (A) 6 %; Neutrophils % (A) 66 %; Platelet Count 332 k/uL (150-450); RBC 3.53 m/uL (3.80-5.40); RDW 15.8 % (11.5-15.5); WBC 7.6 k/uL (3.8-10.6)
--- NOTE | 2022-09-13 21:23 | XR ---
EXAMINATION: XR chest 1V portable DATE AND TIME: 09/13/2022 9:04 PM CLINICAL INDICATION: dyspnea TECHNIQUE: AP upright portable COMPARISON: 09/10/2022 FINDINGS: There is a coarse reticular pattern of increased density throughout the lungs symmetrically, as seen on the prior study likely chronic interstitial changes. There is no evidence definite of pulmonary ed reji or other acute pulmonary process. The pleural spaces are negative. EKG leads. The cardiac silhouette is not enlarged. The remainder of the mediastinal silhouette is mildly enlarged with left ventricular configuration. The skeletal structures and soft tissues are negative for acute findings. IMPRESSION: No acute radiographic process.
[2022-09-13 21:34] LABS: INR 0.9 (<1.2); Partial Thromboplastin Time 22.9 sec (22.0-30.0)
[2022-09-13 21:40] LABS: Appearance,Urine Cloudy (Clear); Bacteria,Urine Occasional /hpf; Bilirubin,Urine Negative (Negative); Blood,Urine Trace (Negative); Budding Yeast,Urine Moderate /hpf; Color,Urine Yellow; Glucose,Urine (UA) Negative (Negative); Ketones,Urine Negative (Negative); Leukocyte Esterase,Urine Large (Negative); Mucus,Urine Occasional /hpf; Nitrite,Urine Negative (Negative); Protein,Urine 1+ (Negative); RBC,Urine 7 /hpf (0-5); Specific Gravity,Urine 1.012 (1.001-1.035); Squamous Epithelial Cell,Urine 4 /hpf (0-4); Urobilinogen,Urine <2.0 mg/dL (<2.0); WBC,Urine 120 /hpf (0-5)
[2022-09-13 21:53] LABS: ALT 16 U/L (4-34); AST 23 U/L (14-36); African American GFR (CKD) 75 (>60 ml/min/1.73 sqM); Albumin 3.8 g/dL (3.5-5.0); Alkaline Phosphatase 78 U/L (38-126); Anion Gap 11 mmol/L; Blood Urea Nitrogen 24 mg/dL (7-17); Calcium 8.7 mg/dL (8.4-10.2); Carbon Dioxide 22 mmol/L (22-30); Chloride 104 mmol/L (98-107); Glucose 125 mg/dL (74-99); Non-African American GFR(CKD) 65 (>60 ml/min/1.73 sqM); Sodium 137 mmol/L (137-145); Total Bilirubin 0.3 mg/dL (0.2-1.3); Total Protein 7.7 g/dL (6.3-8.2)
[2022-09-13] MEDS ORDERED: NALOXONE 0.4 MG/ML 1 ML VIAL IVP PRN (22:32)
[2022-09-13] MEDS ORDERED: ACETAMINOPHEN TAB 325 MG TAB PO PRN ×2 (22:32→23:48)
[2022-09-13] MEDS ORDERED: IPRATROPIUM-ALBUTEROL 3 ML NEB INHALATION PRN (23:25)
[2022-09-13] MEDS ORDERED: SENNOSIDES 8.6 MG TAB PO PRN (23:48)
[2022-09-14] MEDS: methylPREDNISolone SOD SUCCI 40 MG/ML 1 ML VIAL IV SCH ×3 (00:30→16:18)
[2022-09-14] MEDS ORDERED: AZITHROMYCIN 500 MG in SODIUM CHLORIDE 0.9% 250 ML IVPB SCH (01:00)
--- NOTE | 2022-09-14 05:58 | ED ---
SOB HPI - General Chief Complaint: Shortness of Breath Stated Complaint: SOB Time Seen by Provider: 09/13/22 19:59 Source: EMS Mode of arrival: EMS Limitations: language barrier, altered mental status (Dementia versus delirium.), physical limitation - History of Present Illness Initial Comments: This patient is an 87-year-old woman with history of COPD who is sent here from adult foster [facility] home. Was reported that she was having worsening of her und erlying shortness of breath, wheezing, and frequent harsh cough. On arrival, patient denies chest pain. She does complain of productive cough and shortness of breath. There is report of possible fever. MD Complaint: shortness of breath, cough -: days(s) Consistency: constant Improves With: nothing Worsens With: nothing - Related Data Home Medications Medication Instructions Recorded Confirmed Levothyroxine Sodium [Synthroid] 50 mcg PO DAILY 04/01/17 09/13/22 Multivitamins, Thera [Multivitamin 1 tab PO DAILY 11/02/19 09/13/22 (formulary)] Omeprazole 40 mg PO DAILY 11/02/19 09/13/22 Sennosides [Senokot] 8.6 mg PO DAILY PRN 05/25/22 09/13/22 Aspirin EC [Ecotrin Low Dose] 81 mg PO DAILY 06/15/22 09/13/22 Ferrous Sulfate [Iron (65 MG 325 mg PO DAILY 07/24/22 09/13/22 Elemental)] atenoloL [Tenormin] 25 mg PO DAILY 09/13/22 09/13/22 Previous Rx's Medication Instructions Recorded Potassium Chloride ER [K-Dur 20] 20 meq PO DAILY 90 Days #90 tab 05/31/22 Donepezil [Aricept] 10 mg PO HS 90 Days #90 tab 06/19/22 Memantine [Namenda] 5 mg PO BID 90 Days #180 tab 06/19/22 Acetaminophen Tab [Tylenol Tab] 650 mg PO Q4H PRN #30 tablet 07/31/22 Cefdinir [Omnicef] 300 mg PO Q12HR #20 capsule 08/23/22 Sulfamethox-Tmp 800-160Mg [Bactrim 1 tab PO Q12HR #14 tab 09/10/22 DS 800-160 mg] Allergies Allergy/AdvReac Type Severity Reaction Status Date / Time cefuroxime Allergy Intermediate Hives Verified 09/13/22 22:42 Review of Systems ROS Statement: Those systems with pertinent positive or pertinent negative responses have been documented in the HPI. ROS Other: All systems not noted in ROS Statement are negative. 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 Past Anesthesia/Blood Transfusion Reactions: No Reported Reaction Past Psychological History: No Psychological Hx Reported Smoking Status: Unknown if ever smoked Past Alcohol Use History: None Reported Past Drug Use History: None Reported - Past Family History Father Additional Family Medical History / Comment(s): heart disease. Mother Additional Family Medical History / Comment(s): heart disease. Sister(s) Family Medical History: Cancer Additional Family Medical History / Comment(s): 3 SISTERS WITH BREAST CA General Exam Limitations: language barrier, altered mental status, physical limitation General appearance: alert, cachectic Head exam: Present: atraumatic, normocephalic ENT exam: Present: mucous membranes dry Neck exam: Present: full ROM. Absent: meningismus Respiratory exam: Present: wheezes, rhonchi. Absent: rales, stridor, accessory muscle use, decreased breath sounds Cardiovascular Exam: Present: regular rate, tachycardia (Rate approximately 120 bpm), systolic murmur. Absent: diastolic murmur, rubs, gallop GI/Abdominal exam: Present: soft. Absent: distended, tenderness, guarding, r ebound, rigid, mass Extremities exam: Present: normal inspection, normal capillary refill. Absent: pedal edema, calf tenderness Back exam: Absent: CVA tenderness (R), CVA tenderness (L), vertebral tenderness Neurological exam: Present: alert, CN II-XII intact. Absent: oriented X3 (Patient is oriented to person), motor sensory deficit Skin exam: Present: warm, dry, intact, normal color. Absent: rash Course Vital Signs 09/13/22 09/13/22 09/13/22 19:58 20:53 22:22 Temperature 98.3 F 97.8 F Pulse Rate 120 H 101 H Respiratory 18 Rate Blood Pressure 105/59 O2 Sat by Pulse 97 Oximetry Fraction of Inspired Oxygen (FIO2) 09/13/22 09/13/22 09/13/22 23:00 23:38 23:42 Temperature Pulse Rate 96 99 Respiratory 18 Rate Blood Pressure O2 Sat by Pulse 98 Oximetry Fraction of Inspired Oxygen (FIO2) 09/14/22 09/14/22 09/14/22 02:16 02:17 04:00 Temperature Pulse Rate 96 96 96 Respiratory 19 15 7 L Rate Blood Pressure 100/61 100/61 100/61 O2 Sat by Pulse 97 96 96 Oximetry Fraction of Inspired Oxygen (FIO2) 09/14/22 09/14/22 09/14/22 06:00 07:00 07:25 Temperature 97.9 F Pulse Rate 97 103 H 92 Respiratory 22 16 Rate Blood Pressure 131/70 114/60 O2 Sat by Pulse 96 96 Oximetry Fraction of 21 Inspired Oxygen (FIO2) 09/14/22 09/14/22 09/14/22 07:34 10:00 10:31 Temperature 98.3 F Pulse Rate 92 101 H 96 Respiratory 23 18 Rate Blood Pressure 133/74 125/69 O2 Sat by Pulse 98 97 Oximetry Fraction of Inspired Oxygen (FIO2) 09/14/22 09/14/22 09/14/22 10:47 10:57 15:40 Temperature Pulse Rate 102 H 102 H 100 Respiratory Rate Blood Pressure O2 Sat by Pulse Oximetry Fraction of Inspired Oxygen (FIO2) 09/14/22 09/14/22 15:49 16:00 Temperature Pulse Rate 100 96 Respiratory 21 Rate Blood Pressure 125/69 O2 Sat by Pulse 94 L Oximetry Fraction of Inspired Oxygen (FIO2) Medical Decision Making - Medical Decision Making Patient is an 87-year-old woman here with suspected fever, cough, shortness of breath. Marked wheezing. Patient will be admitted for further therapy related COPD. The patient had chest x-ray which I interpreted as not showing acute infiltrate, pneumothorax, or congestive heart failure. Was pt. sent in by a medical professional or institution ([facility], [facility], urgent care, hospital, or long-term...) When possible be specific @ -[No] Did you speak to anyone other than the patient for history (EMS, parent, family, police, friend...)? What history was obtained from this source @ -[Some history comes from patient's caregiver Did you review nursing and triage notes (agree or disagree)? Why? @ -[I reviewed and agree with nursing and triage notes] Were old charts reviewed (outside hosp., previous admission, EMS record, old EKG , old radiological studies, urgent care reports/EKG's, long-term records)? Report findings @ -[No old charts were reviewed] Differential Diagnosis (chest pain, altered mental status, abdominal pain women, abdominal pain men, vaginal bleeding, weakness, fever, dyspnea, syncope, headache, dizziness, GI bleed, back pain, seizure, CVA, palpatations, mental hea lth, musculoskeletal)? @ -[Differential Dyspnea: Coronary syndrome, arrhythmia, tamponade, asthma, COPD, pulmonary embolism, pneumonia, pneumothorax, pulmonary effusion, anaphylaxis, diabetic ketoacidosis, flailed chest, pulmonary contusion, diaphragmatic rupture, anemia, neurom uscular, this is not meant to be an all-inclusive list. EKG interpreted by me (3pts min.). @ -[As above] X-rays interpreted by me (1pt min.). @ -[As above CT interpreted by me (1pt min.). @ -[None done] U/S interpreted by me (1pt. min.). @ -[None done] What testing was considered but not performed or refused? (CT, X-rays, U/S, labs)? Why? @ -[None] What meds were considered but not given or refused? Why? @ -[None] Did you discuss the management of the patient with other professionals (professionals i.e. [facility], [facility], lab, RT, psych nurse, social human services assistants, forest patrolman, teacher, environmental health officer, business case analyst)? Give summary @ -[Lc discussed with admitting physician Was smoking cessation discussed for >3mins.? @ -[No] Was critical care preformed (if so, how long)? @ -[No] Were there social determinants of health that impacted care today? How? (Homelessness, low income, unemployed, alcoholism, drug addiction, transportation, low edu. Level, literacy, decrease access to med. care, care home, rehab)? @ -[No] Was there de-escalation of care discussed even if they declined (Discuss DNR or withdrawal of care, Hospice)? DNR status @ -[No] What co-morbidities impacted this encounter? (DM, HTN, Smoking, COPD, CAD, Cancer, CVA, ARF, Chemo, Hep., AIDS, mental health diagnosis, sleep apnea, morbid obesity)? @ -[None] Was patient admitted / discharged? Hospital course, mention meds given and route, prescriptions, significant lab abnormalities, going to OR and other pertinent info. @ -[The patient is admitted to have further treatment of COPD and urinary tract infection Undiagnosed new problem with uncertain prognosis? @ -[No] Drug Therapy requiring intensive monitoring for toxicity (Heparin, Nitro, Insulin, Cardizem)? @ -[No] Were any procedures done? @ -[No] Diagnosis/symptom? @ -[Acute exacerbation of COPD Recurrent urinary tract infection Acute lactic acidosis Acute, or Chronic, or Acute on Chronic? @ -[default] Uncomplicated (without systemic symptoms) or Complicated (systemic symptoms)? @ -[Uncomplicated Side effects of treatment? @ -[No] Exacerbation, Progression, or Severe Exacerbation? @ -[No] Poses a threat to life or bodily function? How? (Chest pain, USA, ID, pneumonia, PE, COPD, DKA, ARF, appy, cholecystitis, CVA, Diverticulitis, Homicidal, Suicidal, threat to staff... and all critical care pts) @ -[Left untreated these conditions may progress to the point of respiratory failure/sepsis and . - Lab Data Result diagrams: 09/21/22 06:34 09/21/22 06:34 Lab Results 09/13/22 09/13/22 09/13/22 Range/Units 20:53 20:53 20:53 WBC 7.6 (3.8-10.6) k/uL RBC 3.53 L (3.80-5.40) m/uL Hgb 10.1 L (11.4-16.0) gm/dL Hct 31.5 L (34.0-46.0) % MCV 89.4 (80.0-100.0) fL MCH 28.8 (25.0-35.0) pg MCHC 32.2 (31.0-37.0) g/dL RDW 15.8 H (11.5-15.5) % Plt Count 332 (150-450) k/uL MPV 7.3 Neutrophils % 66 % Lymphocytes % 20 % Monocytes % 6 % Eosinophils % 4 % Basophils % 1 % Neutrophils # 5.0 (1.3-7.7) k/uL Lymphocytes # 1.5 (1.0-4.8) k/uL Monocytes # 0.5 (0-1.0) k/uL Eosinophils # 0.3 (0-0.7) k/uL Basophils # 0.0 (0-0.2) k/uL PT 10.0 (9.0-12.0) sec INR 0.9 (<1.2) APTT 22.9 (22.0-30.0) sec Sodium 137 (137-145) mmol/L Potassium 4.0 (3.5-5.1) mmol/L Chloride 104 (98-107) mmol/L Carbon Dioxide 22 (22-30) mmol/L Anion Gap 11 mmol/L BUN 24 H (7-17) mg/dL Creatinine 0.81 (0.52-1.04) mg/dL Est GFR (CKD-EPI)AfAm 75 (>60 ml/min/1.73 sqM) Est GFR (CKD-EPI)NonAf 65 (>60 ml/min/1.73 sqM) Glucose 125 H (74-99) mg/dL Lactic Ac Sepsis Rflx Plasma Lactic Acid Teofilo (0.7-2.0) mmol/L Calcium 8.7 (8.4-10.2) mg/dL Total Bilirubin 0.3 (0.2-1.3) mg/dL AST 23 (14-36) U/L ALT 16 (4-34) U/L Alkaline Phosphatase 78 (38-126) U/L Troponin I (0.000-0.034) ng/mL NT-Pro-B Natriuret Pep pg/mL Total Protein 7.7 (6.3-8.2) g/dL Albumin 3.8 (3.5-5.0) g/dL Urine Color Urine Appearance (Clear) Urine pH (5.0-8.0) Ur Specific [place] (1.001-1.035) Urine Protein (Negative) Urine Glucose (UA) (Negative) Urine Ketones (Negative) Urine Blood (Negative) Urine Nitrite (Negative) Urine Bilirubin (Negative) Urine Urobilinogen (<2.0) mg/dL Ur Leukocyte Esterase (Negative) Urine RBC (0-5) /hpf Urine WBC (0-5) /hpf Urine WBC Clumps (None) /hpf Ur Squamous Epith Cells (0-4) /hpf Urine Bacteria (None) /hpf Urine Mucus (None) /hpf Urine Yeast (Budding) (None) /hpf 09/13/22 09/13/22 09/13/22 Range/Units 20:53 20:53 20:53 WBC (3.8-10.6) k/uL RBC (3.80-5.40) m/uL Hgb (11.4-16.0) gm/dL Hct (34.0-46.0) % MCV (80.0-100.0) fL MCH (25.0-35.0) pg MCHC (31.0-37.0) g/dL RDW (11.5-15.5) % Plt Count (150-450) k/uL MPV Neutrophils % % Lymphocytes % % Monocytes % % Eosinophils % % Basophils % % Neutrophils # (1.3-7.7) k/uL Lymphocytes # (1.0-4.8) k/uL Monocytes # (0-1.0) k/uL Eosinophils # (0-0.7) k/uL Basophils # (0-0.2) k/uL PT (9.0-12.0) sec INR (<1.2) APTT (22.0-30.0) sec Sodium (137-145) mmol/L Potassium (3.5-5.1) mmol/L Chloride (98-107) mmol/L Carbon Dioxide (22-30) mmol/L Anion Gap mmol/L BUN (7-17) mg/dL Creatinine (0.52-1.04) mg/dL Est GFR (CKD-EPI)AfAm (>60 ml/min/1.73 sqM) Est GFR (CKD-EPI)NonAf (>60 ml/min/1.73 sqM) Glucose (74-99) mg/dL Lactic Ac Sepsis Rflx Plasma Lactic Acid Teofilo 2.1 H* (0.7-2.0) mmol/L Calcium (8.4-10.2) mg/dL Total Bilirubin (0.2-1.3) mg/dL AST (14-36) U/L ALT (4-34) U/L Alkaline Phosphatase (38-126) U/L Troponin I <0.012 (0.000-0.034) ng/mL NT-Pro-B Natriuret Pep 1620 pg/mL Total Protein (6.3-8.2) g/dL Albumin (3.5-5.0) g/dL Urine Color Urine Appearance (Clear) Urine pH (5.0-8.0) Ur Specific [place] (1.001-1.035) Urine Protein (Negative) Urine Glucose (UA) (Negative) Urine Ketones (Negative) Urine Blood (Negative) Urine Nitrite (Negative) Urine Bilirubin (Negative) Urine Urobilinogen (<2.0) mg/dL Ur Leukocyte Esterase (Negative) Urine RBC (0-5) /hpf Urine WBC (0-5) /hpf Urine WBC Clumps (None) /hpf Ur Squamous Epith Cells (0-4) /hpf Urine Bacteria (None) /hpf Urine Mucus (None) /hpf Urine Yeast (Budding) (None) /hpf 09/13/22 09/13/22 Range/Units 20:53 22:20 WBC (3.8-10.6) k/uL RBC (3.80-5.40) m/uL Hgb (11.4-16.0) gm/dL Hct (34.0-46.0) % MCV (80.0-100.0) fL MCH (25.0-35.0) pg MCHC (31.0-37.0) g/dL RDW (11.5-15.5) % Plt Count (150-450) k/uL MPV Neutrophils % % Lymphocytes % % Monocytes % % Eosinophils % % Basophils % % Neutrophils # (1.3-7.7) k/uL Lymphocytes # (1.0-4.8) k/uL Monocytes # (0-1.0) k/uL Eosinophils # (0-0.7) k/uL Basophils # (0-0.2) k/uL PT (9.0-12.0) sec INR (<1.2) APTT (22.0-30.0) sec Sodium (137-145) mmol/L Potassium (3.5-5.1) mmol/L Chloride (98-107) mmol/L Carbon Dioxide (22-30) mmol/L Anion Gap mmol/L BUN (7-17) mg/dL Creatinine (0.52-1.04) mg/dL Est GFR (CKD-EPI)AfAm (>60 ml/min/1.73 sqM) Est GFR (CKD-EPI)NonAf (>60 ml/min/1.73 sqM) Glucose (74-99) mg/dL Lactic Ac Sepsis Rflx Y Plasma Lactic Acid Teofilo (0.7-2.0) mmol/L Calcium (8.4-10.2) mg/dL Total Bilirubin (0.2-1.3) mg/dL AST (14-36) U/L ALT (4-34) U/L Alkaline Phosphatase (38-126) U/L Troponin I (0.000-0.034) ng/mL NT-Pro-B Natriuret Pep pg/mL Total Protein (6.3-8.2) g/dL Albumin (3.5-5.0) g/dL Urine Color Yellow Urine Appearance Cloudy H (Clear) Urine pH 5.0 (5.0-8.0) Ur Specific [place] 1.012 (1.001-1.035) Urine Protein 1+ H (Negative) Urine Glucose (UA) Negative (Negative) Urine Ketones Negative (Negative) Urine Blood Trace H (Negative) Urine Nitrite Negative (Negative) Urine Bilirubin Negative (Negative) Urine Urobilinogen <2.0 (<2.0) mg/dL Ur Leukocyte Esterase Large H (Negative) Urine RBC 7 H (0-5) /hpf Urine WBC 120 H (0-5) /hpf Urine WBC Clumps Moderate H (None) /hpf Ur Squamous Epith Cells 4 (0-4) /hpf Urine Bacteria Occasional H (None) /hpf Urine Mucus Occasional H (None) /hpf Urine Yeast (Budding) Moderate H (None) /hpf - EKG Data -: EKG Interpreted by Mo EKG shows normal: sinus rhythm, axis (Normal), intervals (Normal), QRS complexes (Normal), ST-T waves (Normal) Rate: tachycardia (Rate 120 bpm) Disposition Clinical Impression: Acute exacerbation of chronic obstructive airways disease, UTI (urinary tract infection) Disposition: ADMITTED IP TO THIS HOSP Condition: Fair Is patient prescribed a controlled substance at d/c from ED?: No
[2022-09-14] MEDS: LEVOTHYROXINE 50 MCG TAB PO SCH (06:27)
[2022-09-14] MEDS: IPRATROPIUM-ALBUTEROL 3 ML NEB INHALATION SCH ×4 (07:24→22:07)
[2022-09-14] MEDS: POTASSIUM CHLORIDE ER 20 MEQ TAB.ER PO SCH (09:02)
[2022-09-14] MEDS: PANTOPRAZOLE 40 MG TABLET PO SCH (09:02)
[2022-09-14] MEDS: FERROUS SULFATE 325 MG TAB PO SCH (09:02)
[2022-09-14] MEDS: ASPIRIN 81 MG PO SCH (09:02)
[2022-09-14] MEDS: DOXYCYCLINE 100 MG CAP PO SCH ×2 (09:02→22:07)
[2022-09-14] MEDS: MULTIVITAMINS, THERA 1 EACH TAB PO SCH (09:02)
[2022-09-14] MEDS: MEMANTINE 5 MG TAB PO SCH ×2 (09:02→22:00)
[2022-09-14] MEDS: atenoloL 25 MG TAB PO SCH (09:03)
--- NOTE | 2022-09-14 09:03 | CT ---
EXAMINATION TYPE: CT ChestAbdPelvis wo con DATE OF EXAM: 09/14/2022 COMPARISON: CT chest 03/31/2022 and abdomen pelvis 05/29/2021 HISTORY: 87-year-old female Community acquired pneumonia, Hydronerphosis TECHNIQUE: Contiguous axial scanning of the chest, abdomen, and pelvis without IV contrast. Coronal a nd sagittal reconstructions performed. CT DLP: 414.7 mGycm Automated exposure control for dose reduction was used. FINDINGS: Chest: Heart upper limits of normal size without pericardial effusion. Extensive three-vessel coronary arter y calcifications are present. Ectatic ascending aorta 3.6 cm. Small aphthous chronic arch calcifications. Conventional arterial ves mateo branching anatomy. No thoracic lymphadenopathy by CT size criteria. Lungs show scattered interstitial fibrosis and moderate emphysematous change. Calcified granuloma pos terior left base. Trace right pleural effusion. Dependent atelectasis. Some interstitial changes in t he subpleural regions of the lower lungs are slightly increased, possibly relating to scarring or ate lectasis. No joesph consolidation seen. There is joesph dilatation of the esophagus up to 4.5 cm wide with layering fluid. There is circumfere ntial wall thickening distally and surgical material at the GE junction. Prominent air distention of the stomach. ABDOMEN: Punctate calcification suggesting calcified granulomas in the liver. Prominent motion artifact and la ck of contrast limits evaluation. Cholecystectomy clips. There is fullness of the right renal pelvis. No joesph hydronephrosis is seen on either side. The charla t nonobstructive 3 mm right renal calculus. Calcified granulomas in the liver. Pancreas appears atrophic, similar to prior study. Not well evalua giulia due to the degree of motion and lack of contrast. No dilated small bowel, free fluid, or free air. No mesenteric or retroperitoneal lymphadenopathy. Mild generalized anasarca change. Normal appendix. Mild stool burden though with severe stool distention of the rectum up to nearly 10 cm wide with mode rate circumferential wall thickening. Possible rectal wall pneumatosis on axial image 106. There is p resacral edema. Likely some degree of mass effect on to the distal ureters. Pelvis: Pelvic phleboliths. Damon catheter low in position. The balloon may be within the prostate gland. Jose dder is largely collapsed. There is nondependent intraluminal bladder air relating to instrumentation . Bones: Right ankle arthroplasty. Moderate degenerative changes left hip. Levoconvex scoliosis lumbar spine. Moderate multilevel spondylotic change throughout the spine. Degen erative grade 1 retrolistheses L1-L5 levels. Grade 2, nearly grade 3 anterolisthesis L5-S1 with accen tuated lower lumbar lordosis. Bilateral L5 pars defects. IMPRESSION: 1. SEVERE FECAL IMPACTION. THE RECTUM IS DISTENDED UP TO 10 CM WIDE. THERE IS MODERATE RECTAL WALL TH ICKENING AND SOME SURROUNDING EDEMA/INFLAMMATION. ALSO, QUESTIONABLE COUPLE FOCI OF RECTAL WALL PNEUM ATOSIS. CORRELATE WITH LACTIC ACID LEVELS TO EXCLUDE VENOUS INSUFFICIENCY AND ISCHEMIA DUE TO THE DEG REE OF SEVERE DISTENTION. PATIENT MAY NEED MANUAL DISIMPACTION. 2. FULLNESS OF THE RIGHT RENAL PELVIS LIKELY DUE TO SOME DEGREE OF MASS EFFECT ONTO THE DISTAL URETER . ADDITIONAL NONOBSTRUCTING 3 MM RIGHT RENAL CALCULUS. 3. NOTE THAT THE DAMON CATHETER BALLOON APPEARS LOW AND MAY BE INFLATED IN THE PROSTATE GLAND. RECOMM END DEFLATION AND FURTHER ADVANCEMENT. 4. JOESPH DILATATION OF THE ESOPHAGUS UP TO 4.5 CM WIDE WITH LAYERING FLUID. THERE IS CIRCUMFERENTIAL WALL THICKENING DISTAL ESOPHAGUS AND POSTSURGICAL CHANGE AT THE GE JUNCTION. UNCLEAR IF THE WALL THIC KENING RELATES TO ESOPHAGITIS VERSUS RECURRENT HIATAL HERNIA WITH SEVERE GASTROESOPHAGEAL REFLUX. FUR THER CLINICAL EVALUATION AND APPROPRIATE MANAGEMENT RECOMMENDED. NO LUMINAL OBSTRUCTION/STRICTURE IS SEEN. 5. MILD INTERSTITIAL CHANGES IN THE LOWER LUNGS. ON THE RIGHT, MILD INFECTIOUS OR ASPIRATION INFILTRA SALEEM NOT EXCLUDED. HOWEVER, ATELECTASIS OR SCARRING IS FAVORED.
[2022-09-14 13:53] VITALS: BMI 18.4
[2022-09-14] MEDS: AMPICILLIN-SULBACTAM 3 GM in SODIUM CHLORIDE 0.9% 100 ML IVPB SCH ×2 (14:33→21:59)
[2022-09-14] MEDS: LEVOFLOXACIN 500MG-D5W PMX 500 MG in DEXTROSE/WATER 1 100ML.BAG IVPB SCH (16:13)
[2022-09-14] MEDS: DONEPEZIL 10 MG TAB PO SCH (22:00)
[2022-09-15] MEDS: methylPREDNISolone SOD SUCCI 40 MG/ML 1 ML VIAL IV SCH ×3 (03:16→16:28)
[2022-09-15] MEDS: AMPICILLIN-SULBACTAM 3 GM in SODIUM CHLORIDE 0.9% 100 ML IVPB SCH ×4 (03:17→20:56)
[2022-09-15] MEDS: LEVOTHYROXINE 50 MCG TAB PO SCH (06:54)
[2022-09-15] MEDS: PANTOPRAZOLE 40 MG TABLET PO SCH (06:54)
[2022-09-15] MEDS: IPRATROPIUM-ALBUTEROL 3 ML NEB INHALATION SCH ×4 (08:35→21:23)
--- NOTE | 2022-09-15 09:03 | P.CRDCN ---
History of Present Illness Consult date: 09/15/22 Chief complaint: Change in mental status History of present illness: This is an 87-year-old female patient with a past medical history significant for hypertension and dyslipidemia and possible COPD was brought to the hospital with shortness of breath. The patient is extremely poor historian and the history was taken from the chart as well as from the nurse taking care of the patient. The patient lives in adult foster care. She has been constipated. She has been also experiencing shortness of breath. No symptoms of any chest pain or chest discomfort and no dizziness or lightheadedness and no feeling of heart racing or fluttering and no presyncope or syncope. She underwent further workup including EKG showing sinus mechanism was no significant ST or T-wave abnormalities and first set of troponin came in to be unremarkable. No second or third set. Computed tomography scan of the chest and abdomen was performed and showed extensive 3 vessels coronary calcifications. She is also was found to have UTI. With the patient was seen and evaluated she does not look in any pain or any distress. Her vitals are stable. Currently she is on aspirin as well as she is on atenolol. The examination is remarkable for regular rhythm with a systolic murmur at the right upper sternal border was clear breathing sounds bilaterally and no lower extremity edema noted. The abdomen appeared to be soft and nontender as well. Assessment Coronary artery disease identified on computed tomography scan Hypertension Dyslipidemia Underlying dementia Constipation UTI Plan Rule out acute coronary event. 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 Past Anesthesia/Blood Transfusion Reactions: No Reported Reaction Past Psychological History: No Psychological Hx Reported Smoking Status: Unknown if ever smoked Past Alcohol Use History: None Reported Past Drug Use History: None Reported - Past Family History Father Additional Family Medical History / Comment(s): heart disease. Mother Additional Family Medical History / Comment(s): heart disease. Sister(s) Family Medical History: Cancer Additional Family Medical History / Comment(s): 3 SISTERS WITH BREAST CA Medications and Allergies Home Medications Medication Instructions Recorded Confirmed Type Levothyroxine Sodium [Synthroid] 50 mcg PO DAILY 04/01/17 09/13/22 History Multivitamins, Thera [Multivitamin 1 tab PO DAILY 11/02/19 09/13/22 History (formulary)] Omeprazole 40 mg PO DAILY 11/02/19 09/13/22 History Sennosides [Senokot] 8.6 mg PO DAILY PRN 05/25/22 09/13/22 History Potassium Chloride ER [K-Dur 20] 20 meq PO DAILY 90 Days #90 tab 05/31/22 09/13/22 Rx Aspirin EC [Ecotrin Low Dose] 81 mg PO DAILY 06/15/22 09/13/22 History Donepezil [Aricept] 10 mg PO HS 90 Days #90 tab 06/19/22 09/13/22 Rx Memantine [Namenda] 5 mg PO BID 90 Days #180 tab 06/19/22 09/13/22 Rx Ferrous Sulfate [Iron (65 MG 325 mg PO DAILY 07/24/22 09/13/22 History Elemental)] Acetaminophen Tab [Tylenol Tab] 650 mg PO Q4H PRN #30 tablet 07/31/22 09/13/22 Rx Cefdinir [Omnicef] 300 mg PO Q12HR #20 capsule 08/23/22 09/13/22 Rx Sulfamethox-Tmp 800-160Mg [Bactrim 1 tab PO Q12HR #14 tab 09/10/22 09/13/22 Rx DS 800-160 mg] atenoloL [Tenormin] 25 mg PO DAILY 09/13/22 09/13/22 History Allergies Allergy/AdvReac Type Severity Reaction Status Date / Time cefuroxime Allergy Intermediate Hives Verified 09/13/22 22:42 Physical Exam Vitals: Vital Signs Temp Pulse Pulse Resp BP BP BP 09/15/22 08:44 94 09/15/22 08:35 92 09/15/22 07:50 98.4 F 87 14 117/71 09/15/22 02:00 98.1 F 92 16 130/60 09/14/22 22:17 103 H 09/14/22 22:09 97 09/14/22 20:44 98.0 F 88 19 121/73 09/14/22 20:00 19 09/14/22 16:00 96 21 125/69 09/14/22 15:49 100 09/14/22 15:40 100 09/14/22 10:57 102 H 09/14/22 10:47 102 H 09/14/22 10:31 98.3 F 96 18 125/69 09/14/22 10:00 101 H 23 133/74 Pulse Ox 09/15/22 08:44 09/15/22 08:35 94 L 09/15/22 07:50 94 L 09/15/22 02:00 95 09/14/22 22:17 09/14/22 22:09 09/14/22 20:44 96 09/14/22 20:00 09/14/22 16:00 94 L 09/14/22 15:49 09/14/22 15:40 09/14/22 10:57 09/14/22 10:47 09/14/22 10:31 97 09/14/22 10:00 98 Intake and Output 09/14/22 09/15/22 09/15/22 22:59 06:59 14:59 Output Total 600 Balance -600 Output: Urine 600 Uretheral (Kurtz) 300 Other: Voiding Method Indwelling Catheter Results 09/13/22 20:53 09/13/22 20:53 Current Medications Generic Name Dose Route Start Last Admin Trade Name Freq PRN Reason Stop Dose Admin Acetaminophen 650 mg 09/13/22 22:32 Acetaminophen Tab 325 Mg Tab PO Q4HR PRN Mild Pain or Fever > 100.5 Acetaminophen 650 mg 09/13/22 23:48 Acetaminophen Tab 325 Mg Tab PO Q4H PRN Pain Albuterol/Ipratropium 3 ml 09/14/22 08:00 09/15/22 08:35 Ipratropium-Albuterol 3 Ml Neb INHALATION 3 ml RT-QID GENA Administration Albuterol/Ipratropium 3 ml 09/13/22 23:25 09/13/22 23:35 Ipratropium-Albuterol 3 Ml Neb INHALATION 3 ml RT-Q2H PRN Administration Shortness Of Breath Or Wheezing Aspirin 81 mg 09/14/22 09:00 09/14/22 09:02 Aspirin 81 Mg PO 81 mg DAILY GENA Administration Atenolol 25 mg 09/14/22 09:00 09/14/22 09:03 Atenolol 25 Mg Tab PO 25 mg DAILY GENA Administration Donepezil HCl 10 mg 09/14/22 21:00 09/14/22 22:00 Donepezil 10 Mg Tab PO 10 mg HS GENA Administration Doxycycline Monohydrate 100 mg 09/14/22 09:00 09/14/22 22:07 Doxycycline 100 Mg Cap PO 09/18/22 21:01 100 mg BID GENA Administration Protocol Ferrous Sulfate 325 mg 09/14/22 09:00 09/14/22 09:02 Ferrous Sulfate 325 Mg Tab PO 325 mg DAILY GENA Administration Levofloxacin 500 mg/ IV 100 mls @ 100 mls/hr 09/14/22 15:00 09/14/22 16:13 Solution IVPB 100 mls/hr Q24H GENA Administration Protocol Ampicillin Sodium/Sulbactam 100 mls @ 200 mls/hr 09/15/22 14:00 Sodium 3 gm/ Sodium Chloride IVPB Q8H GENA Protocol Levothyroxine Sodium 50 mcg 09/14/22 06:30 09/15/22 06:54 Levothyroxine 50 Mcg Tab PO 50 mcg DAILY@0630 GENA Administration Memantine 5 mg 09/14/22 09:00 09/14/22 22:00 Memantine 5 Mg Tab PO 5 mg BID GENA Administration Methylprednisolone Sodium Succinate 40 mg 09/14/22 00:15 09/15/22 03:16 Methylprednisolone Sod Succi 40 Mg/Ml 1 Ml Vial IV 40 mg Q8HR GENA Administration Multivitamins 1 each 09/14/22 09:00 09/14/22 09:02 Multivitamins, Thera 1 Each Tab PO 1 each DAILY GENA Administration Naloxone HCl 0.2 mg 09/13/22 22:32 Naloxone 0.4 Mg/Ml 1 Ml Vial IVP Q2M PRN Opioid Reversal Pantoprazole Sodium 40 mg 09/14/22 07:30 09/15/22 06:54 Pantoprazole 40 Mg Tablet PO 40 mg [id number] GENA Administration Potassium Chloride 20 meq 09/14/22 09:00 09/14/22 09:02 Potassium Chloride Er 20 Meq Tab.Er PO 20 meq DAILY GENA Administration Senna 8.6 mg 09/13/22 23:48 Sennosides 8.6 Mg Tab PO DAILY PRN Constipation Intake and Output 09/14/22 09/15/22 09/15/22 22:59 06:59 14:59 Output Total 600 Balance -600 Output: Urine 600 Uretheral (Kurtz) 300 Other: Voiding Method Indwelling Catheter 09/13/22 20:53 09/13/22 20:53
--- NOTE | 2022-09-15 09:22 | P.CONS ---
History of Present Illness - Reason for Consult Consult date: 09/14/22 UTI, and CPAP Requesting physician: Victor Hugo Zhong - Chief Complaint cough and shortness of breath x 1 day - History of Present Illness Patient is a 87-year-old female with a past medical history significant for COPD dementia GERD heart failure history of metastatic breast cancer and recurrent UTIs who was sent to the ER from adult foster care for worsening shortness of breath and wheezing and frequent harsh cough on arrival to the ER patient was afebrile patient was not hypoxic or need for supplemental oxygen patient did have a normal white count of 7.6 creatinine has been normal lactic acid was elevated 2.1 liver enzymes are normal she did have a positive UA with large leukocyte Estrace 120 WBC patient did have a chest x-ray no acute radiographic process she also have a CT of the chest abdominal pelvis which shows severe fecal impaction rectum is distended up to the 10 cm wide and moderate rectal wall thickening some surrounding edema couple of foci of rectal wall pneumatosis fullness in the right renal pelvis Flander rotation of the esophagus up to 4.5 cm mild respiratory changes in the lungs patient was started on Zithromax infectious disease was consulted for further management of antibiotic therapy, patient is currently pleasantly confused and not a very good historian at this point when specifically she denies having any chest pain or shortness of breath she did have some cough but not being able to sputum denies have any nausea vomiting abdominal pain Review of Systems Positive point and negatives has been mentioned in the HPI, complete review of systems was performed and all other systems are negative Past Medical History Past Medical History: Cancer, Heart Failure, COPD, Dementia, GERD/Reflux, Thyroid Disorder Additional Past Medical History / Comment(s): HIATAL HERNIA, metastatic breast ca, bone cancer(thoracic spine), 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 Past Anesthesia/Blood Transfusion Reactions: No Reported Reaction Past Psychological History: No Psychological Hx Reported Smoking Status: Unknown if ever smoked Past Alcohol Use History: None Reported Past Drug Use History: None Reported - Past Family History Father Additional Family Medical History / Comment(s): heart disease. Mother Additional Family Medical History / Comment(s): heart disease. Sister(s) Family Medical History: Cancer Additional Family Medical History / Comment(s): 3 SISTERS WITH BREAST CA Medications and Allergies Home Medications Medication Instructions Recorded Confirmed Type Levothyroxine Sodium [Synthroid] 50 mcg PO DAILY 04/01/17 09/13/22 History Multivitamins, Thera [Multivitamin 1 tab PO DAILY 11/02/19 09/13/22 History (formulary)] Omeprazole 40 mg PO DAILY 11/02/19 09/13/22 History Sennosides [Senokot] 8.6 mg PO DAILY PRN 05/25/22 09/13/22 History Potassium Chloride ER [K-Dur 20] 20 meq PO DAILY 90 Days #90 tab 05/31/22 09/13/22 Rx Aspirin EC [Ecotrin Low Dose] 81 mg PO DAILY 06/15/22 09/13/22 History Donepezil [Aricept] 10 mg PO HS 90 Days #90 tab 06/19/22 09/13/22 Rx Memantine [Namenda] 5 mg PO BID 90 Days #180 tab 06/19/22 09/13/22 Rx Ferrous Sulfate [Iron (65 MG 325 mg PO DAILY 07/24/22 09/13/22 History Elemental)] Acetaminophen Tab [Tylenol Tab] 650 mg PO Q4H PRN #30 tablet 07/31/22 09/13/22 Rx Cefdinir [Omnicef] 300 mg PO Q12HR #20 capsule 08/23/22 09/13/22 Rx Sulfamethox-Tmp 800-160Mg [Bactrim 1 tab PO Q12HR #14 tab 09/10/22 09/13/22 Rx DS 800-160 mg] atenoloL [Tenormin] 25 mg PO DAILY 09/13/22 09/13/22 History Allergies Allergy/AdvReac Type Severity Reaction Status Date / Time cefuroxime Allergy Intermediate Hives Verified 09/13/22 22:42 Physical Exam Vitals: Vital Signs Temp Pulse Resp BP Pulse Ox FiO2 09/14/22 10:57 102 H 09/14/22 10:47 102 H 09/14/22 10:31 98.3 F 96 18 125/69 97 09/14/22 10:00 101 H 23 133/74 98 09/14/22 07:34 92 09/14/22 07:25 92 96 21 09/14/22 07:00 97.9 F 103 H 16 114/60 96 09/14/22 06:00 97 22 131/70 09/14/22 04:00 96 7 L 100/61 96 09/14/22 02:17 96 15 100/61 96 09/14/22 02:16 96 19 100/61 97 09/13/22 23:42 99 09/13/22 23:38 96 09/13/22 23:00 18 98 09/13/22 22:22 97.8 F 09/13/22 20:53 101 H 09/13/22 19:58 98.3 F 120 H 18 105/59 97 Intake and Output 09/13/22 09/14/22 09/14/22 22:59 06:59 14:59 Output Total 1275 Balance -1275 Output: Urine 1275 Other: Weight 50.349 kg GENERAL DESCRIPTION: Elderly female lying in bed, no distress. No tachypnea or accessory muscle of respiration use. HEENT: Shows Pallor , no scleral icterus. Oral mucous membrane is dry. No pharyngeal erythema or thrush NECK: Trachea central, no thyromegaly. LUNGS: Unlabored breathing. Clear to auscultation anteriorly. HEART: S1, S2, regular rate and rhythm. No loud murmur ABDOMEN: Soft, no tenderness EXTREMITIES: No edema of feet. SKIN: No rash, no masses palpable. NEUROLOGICAL: The patient is awake, alert, oriented x2, mood and affect normal. Results CBC & Chem 7: 09/13/22 20:53 09/13/22 20:53 Labs: Abnormal Lab Results - Last 24 Hours (Table) 09/13/22 09/13/22 09/13/22 Range/Units 20:53 20:53 20:53 RBC 3.53 L (3.80-5.40) m/uL Hgb 10.1 L (11.4-16.0) gm/dL Hct 31.5 L (34.0-46.0) % RDW 15.8 H (11.5-15.5) % BUN 24 H (7-17) mg/dL Glucose 125 H (74-99) mg/dL Plasma Lactic Acid Teofilo 2.1 H* (0.7-2.0) mmol/L Urine Appearance (Clear) Urine Protein (Negative) Urine Blood (Negative) Ur Leukocyte Esterase (Negative) Urine RBC (0-5) /hpf Urine WBC (0-5) /hpf Urine WBC Clumps (None) /hpf Urine Bacteria (None) /hpf Urine Mucus (None) /hpf Urine Yeast (Budding) (None) /hpf 09/13/22 Range/Units 20:53 RBC (3.80-5.40) m/uL Hgb (11.4-16.0) gm/dL Hct (34.0-46.0) % RDW (11.5-15.5) % BUN (7-17) mg/dL Glucose (74-99) mg/dL Plasma Lactic Acid Teofilo (0.7-2.0) mmol/L Urine Appearance Cloudy H (Clear) Urine Protein 1+ H (Negative) Urine Blood Trace H (Negative) Ur Leukocyte Esterase Large H (Negative) Urine RBC 7 H (0-5) /hpf Urine WBC 120 H (0-5) /hpf Urine WBC Clumps Moderate H (None) /hpf Urine Bacteria Occasional H (None) /hpf Urine Mucus Occasional H (None) /hpf Urine Yeast (Budding) Moderate H (None) /hpf Assessment and Plan (1) Aspiration pneumonia Current Visit: Yes Status: Acute Code(s): J69.0 - PNEUMONITIS DUE TO INHALATION OF FOOD AND VOMIT SNOMED Code(s): 873319661 (2) Proctitis Current Visit: Yes Status: Acute Code(s): K62.89 - OTHER SPECIFIED DISEASES OF ANUS AND RECTUM SNOMED Code(s): 4578363 (3) UTI (urinary tract infection) Current Visit: Yes Status: Acute Code(s): N39.0 - URINARY TRACT INFECTION, SITE NOT SPECIFIED SNOMED Code(s): 81262388 Plan: 1patient present to hospital with shortness of breath and cough in this patient noticed to have significant abnormality on the CT chest abdominal pelvis with concern for fecal impaction and rectal pneumatosis also have a dilated esophagus and concern for possible aspiration pneumonitis, patient also have a positive UA and a component of urine tract infection not entirely excluded 2-patient has cefuroxime allergies that would limit the number of antibiotics safe to use 3-discontinue Zithromax 4-start the patient on Unasyn 3 g every 8 hours We will follow on clinical condition and cultures to further adjust medication if needed Thank you for this consultation we will follow the patient along with you Time with Patient: Greater than 30
--- NOTE | 2022-09-15 09:40 | P.GSCN ---
History of Present Illness Consult date: 09/15/22 Reason for Consult: Fecal impaction History of present illness: 87-year-old female apparently comes from a assisted living facility. She came in because of cough and shortness of breath. Apparently there was some mental status changes as well. Patient had a CAT scan which demonstrates significant stool burden in the rectum with inflammatory changes present of the rectal wall. The patient also has significant dilation of the esophagus with some postsurgical changes at the hiatus. Patient actually states she feels well. Denies pain. Denies dysphagia currently. She had good output with soapsuds enemas yesterday. Patient just recently had cholecystectomy 1 month ago. 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 Past Anesthesia/Blood Transfusion Reactions: No Reported Reaction Past Psychological History: No Psychological Hx Reported Smoking Status: Unknown if ever smoked Past Alcohol Use History: None Reported Past Drug Use History: None Reported - Past Family History Father Additional Family Medical History / Comment(s): heart disease. Mother Additional Family Medical History / Comment(s): heart disease. Sister(s) Family Medical History: Cancer Additional Family Medical History / Comment(s): 3 SISTERS WITH BREAST CA Medications and Allergies Home Medications Medication Instructions Recorded Confirmed Type Levothyroxine Sodium [Synthroid] 50 mcg PO DAILY 04/01/17 09/13/22 History Multivitamins, Thera [Multivitamin 1 tab PO DAILY 11/02/19 09/13/22 History (formulary)] Omeprazole 40 mg PO DAILY 11/02/19 09/13/22 History Sennosides [Senokot] 8.6 mg PO DAILY PRN 05/25/22 09/13/22 History Potassium Chloride ER [K-Dur 20] 20 meq PO DAILY 90 Days #90 tab 05/31/22 09/13/22 Rx Aspirin EC [Ecotrin Low Dose] 81 mg PO DAILY 06/15/22 09/13/22 History Donepezil [Aricept] 10 mg PO HS 90 Days #90 tab 06/19/22 09/13/22 Rx Memantine [Namenda] 5 mg PO BID 90 Days #180 tab 06/19/22 09/13/22 Rx Ferrous Sulfate [Iron (65 MG 325 mg PO DAILY 07/24/22 09/13/22 History Elemental)] Acetaminophen Tab [Tylenol Tab] 650 mg PO Q4H PRN #30 tablet 07/31/22 09/13/22 Rx Cefdinir [Omnicef] 300 mg PO Q12HR #20 capsule 08/23/22 09/13/22 Rx Sulfamethox-Tmp 800-160Mg [Bactrim 1 tab PO Q12HR #14 tab 09/10/22 09/13/22 Rx DS 800-160 mg] atenoloL [Tenormin] 25 mg PO DAILY 09/13/22 09/13/22 History Allergies Allergy/AdvReac Type Severity Reaction Status Date / Time cefuroxime Allergy Intermediate Hives Verified 09/13/22 22:42 Surgical - Exam Vital Signs Temp Pulse Resp BP Pulse Ox 98.3 F 120 H 18 105/59 97 09/13/22 19:58 09/13/22 19:58 09/13/22 19:58 09/13/22 19:58 09/13/22 19:58 Physical exam: General: Well-developed, well-nourished HEENT: Normocephalic, sclerae nonicteric Abdomen: Nontender, nondistended Extremities: No edema, 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 Patient also with significant GERD/esophageal dilation on CAT scan. We'll do soapsuds enemas again today. Begin liquid diet. Add lactulose. Will order upper GI for Saturday. Current Visit: Yes Status: Acute Code(s): K62.89 - OTHER SPECIFIED DISEASES OF ANUS AND RECTUM SNOMED Code(s): 0906114
[2022-09-15] MEDS: DOXYCYCLINE 100 MG CAP PO SCH ×2 (09:55→20:54)
[2022-09-15] MEDS: POTASSIUM CHLORIDE ER 20 MEQ TAB.ER PO SCH (09:56)
[2022-09-15] MEDS: MEMANTINE 5 MG TAB PO SCH ×2 (09:56→20:54)
[2022-09-15] MEDS: FERROUS SULFATE 325 MG TAB PO SCH (09:56)
[2022-09-15] MEDS: atenoloL 25 MG TAB PO SCH (09:56)
[2022-09-15] MEDS: MULTIVITAMINS, THERA 1 EACH TAB PO SCH (09:56)
[2022-09-15] MEDS: ASPIRIN 81 MG PO SCH (09:56)
[2022-09-15] MEDS: LACTULOSE 20 GM/30 ML CUP PO SCH ×4 (10:04→20:58)
--- NOTE | 2022-09-15 11:43 | PN ---
PROGRESS NOTE SUBJECTIVE: An 87-year-old white female, came in with metastatic breast cancer, dementia, COPD, weakness. She had a fall at home. She had severe abrasion on her left arm, severe fecal impaction. Surgery has been consulted. She came in with UTI versus bronchitis, pneumonia, started on antibiotics. Infectious Disease consult as well as surgical consult. PAST MEDICAL HISTORY: Cancer, heart failure, COPD, dementia, GERD, hypothyroidism, hiatal hernia. PAST SURGICAL HISTORY: Breast surgeries, orthopedic surgery. MEDICATIONS: 1. Synthroid 50 mcg daily. 2. Multivitamin daily. 3. Omeprazole 40 daily. 4. Senokot 8.6 mg daily. 5. K-Dur 20 mEq daily. 6. Aspirin 81 daily. 7. Aricept 10 mg daily. 8. Namenda 5 mg b.i.d. 9. Ferrous sulfate 325 daily. 10.Omnicef 300 b.i.d. 11.Bactrim Double Strength b.i.d. 12.Atenolol 25 daily. ALLERGIES: Cefuroxime. PHYSICAL EXAMINATION: VITAL SIGNS: Temp 97 to 98, pulse 96 to 102, respiratory rate 16 to 20, blood pressure is 100-120-130 over 60s, O2 97 to 98. CARDIOVASCULAR: S1, S2. LUNGS: Scattered rhonchi and wheezing. Decreased breath sounds. HEMATOLOGY: Negative for Homans. PSYCH: Fair mood and affect. Right arm atrophy. MUSCULOSKELETAL: No rash, excoriation, or bruising. UA shows moderate white blood cell clumps, yeast. ASSESSMENT AND PLAN: Aspiration pneumonia, proctitis, urinary tract infection, rectal obstipation. Continue current treatments. Treat with antibiotics per Infectious Disease. Surgical consult. MMODL / IJN: [id number] /
[2022-09-15] MEDS: LEVOFLOXACIN 500MG-D5W PMX 500 MG in DEXTROSE/WATER 1 100ML.BAG IVPB SCH (16:28)
[2022-09-15] MEDS: DONEPEZIL 10 MG TAB PO SCH (20:54)
[2022-09-15] MEDS: ATORVASTATIN 20 MG TAB PO SCH (20:54)
[2022-09-16] MEDS: methylPREDNISolone SOD SUCCI 40 MG/ML 1 ML VIAL IV SCH ×3 (01:21→15:59)
[2022-09-16] MEDS: PANTOPRAZOLE 40 MG TABLET PO SCH (06:30)
[2022-09-16] MEDS: AMPICILLIN-SULBACTAM 3 GM in SODIUM CHLORIDE 0.9% 100 ML IVPB SCH ×3 (06:30→22:20)
[2022-09-16] MEDS: IPRATROPIUM-ALBUTEROL 3 ML NEB INHALATION SCH ×4 (07:47→22:17)
[2022-09-16] MEDS: LEVOTHYROXINE 50 MCG TAB PO SCH (09:27)
[2022-09-16] MEDS: DOXYCYCLINE 100 MG CAP PO SCH ×2 (09:27→22:21)
[2022-09-16] MEDS: MEMANTINE 5 MG TAB PO SCH ×2 (09:28→22:20)
[2022-09-16] MEDS: FERROUS SULFATE 325 MG TAB PO SCH (09:28)
[2022-09-16] MEDS: POTASSIUM CHLORIDE ER 20 MEQ TAB.ER PO SCH (09:28)
[2022-09-16] MEDS: atenoloL 25 MG TAB PO SCH (09:28)
[2022-09-16] MEDS: MULTIVITAMINS, THERA 1 EACH TAB PO SCH (09:28)
[2022-09-16] MEDS: ASPIRIN 81 MG PO SCH (09:28)
--- NOTE | 2022-09-16 09:32 | P.PN ---
Subjective Progress Note Date: 09/16/22 Principal diagnosis: Fecal impaction Patient doing well today. She had large volume of soft stool with enemas yesterday. Denies pain. No dysphagia. No nausea or vomiting. Objective - Vital Signs Vital signs: Vital Signs Temp 98.9 F 09/16/22 07:45 Pulse 80 09/16/22 08:00 Resp 16 09/16/22 07:45 BP 117/65 09/16/22 07:45 Pulse Ox 96 09/16/22 07:51 FiO2 21 09/14/22 07:25 Intake & Output 09/15/22 09/16/22 09/16/22 18:59 06:59 18:59 Output Total 490 400 Balance -490 -400 Output: Urine 490 400 Other: Voiding Method Indwelling Catheter - Exam Abdomen: Soft, nontender, nondistended - Labs CBC & Chem 7: 09/13/22 20:53 09/13/22 20:53 Labs: Microbiology - Last 24 Hours (Table) 09/13/22 20:53 Blood Culture - Preliminary Blood 09/13/22 20:53 Blood Culture - Preliminary Blood Assessment and Plan (1) Proctitis Narrative/Plan: Patient doing better today. Her fecal impaction clinically has resolved. Will await upper GI tomorrow given the CAT scan findings of esophageal dilation. Current Visit: Yes Status: Acute Code(s): K62.89 - OTHER SPECIFIED DISEASES OF ANUS AND RECTUM SNOMED Code(s): 2351265
--- NOTE | 2022-09-16 10:22 | P.PN ---
Subjective Progress Note Date: 09/16/22 Principal diagnosis: CAD This is an 87-year-old female patient with a past medical history significant for hypertension and dyslipidemia and possible COPD was brought to the hospital with shortness of breath. The patient is extremely poor historian and the history was taken from the chart as well as from the nurse taking care of the patient. The patient lives in adult foster care. She has been constipated. She has been also experiencing shortness of breath. No symptoms of any chest pain or chest discomfort and no dizziness or lightheadedness and no feeling of heart racing or fluttering and no presyncope or syncope. She underwent further workup including EKG showing sinus mechanism was no significant ST or T-wave abnormalities and first set of troponin came in to be unremarkable. No second or third set. Computed tomography scan of the chest and abdomen was performed and showed extensive 3 vessels coronary calcifications. She is also was found to have UTI. With the patient was seen and evaluated she does not look in any pain or any distress. Her vitals are stable. Currently she is on aspirin as well as she is on atenolol. 09/16/2022 The patient was seen and evaluated this morning. She is asymptomatic in terms of chest pain or chest discomfort. She underwent yesterday cardiac enzymes and that came in to be unremarkable for any acute coronary syndrome. From a cardiovascular standpoint of view, the patient is a stable and will follow-up with the patient on when necessary. Speech she to undergo probably as an outpatient workup to rule out severe CAD. The examination is remarkable for regular rhythm with a systolic murmur at the right upper sternal border was clear breathing sounds bilaterally and no lower extremity edema noted. The abdomen appeared to be soft and nontender as well. Assessment Coronary artery disease identified on computed tomography scan Hypertension Dyslipidemia Underlying dementia Constipation UTI Plan Acute coronary syndrome was ruled out Continue the aspirin and beta haven and aspirin Follow-up with the patient on when necessary case Objective - Vital Signs Vital signs: Vital Signs Temp 98.9 F 09/16/22 07:45 Pulse 80 09/16/22 08:00 Resp 16 09/16/22 07:45 BP 117/65 09/16/22 07:45 Pulse Ox 96 09/16/22 07:51 FiO2 21 09/14/22 07:25 Intake & Output 09/15/22 09/16/22 09/16/22 18:59 06:59 18:59 Output Total 490 400 Balance -490 -400 Output: Urine 490 400 Other: Voiding Method Indwelling Catheter Indwelling Catheter - Labs CBC & Chem 7: 09/13/22 20:53 09/13/22 20:53 Labs: Microbiology - Last 24 Hours (Table) 09/13/22 20:53 Blood Culture - Preliminary Blood 09/13/22 20:53 Blood Culture - Preliminary Blood
[2022-09-16] MEDS: LEVOFLOXACIN 500MG-D5W PMX 500 MG in DEXTROSE/WATER 1 100ML.BAG IVPB SCH (15:59)
[2022-09-16] MEDS: LACTULOSE 20 GM/30 ML CUP PO SCH ×2 (15:59→22:21)
[2022-09-16] MEDS: ATORVASTATIN 20 MG TAB PO SCH (22:20)
[2022-09-16] MEDS: DONEPEZIL 10 MG TAB PO SCH (22:20)
--- NOTE | 2022-09-16 22:45 | P.PN ---
Subjective Progress Note Date: 09/15/22 Principal diagnosis: Possible aspiration pneumonitis and proctitis Patient is a 87-year-old female with a past medical history significant for COPD dementia GERD heart failure history of metastatic breast cancer and recurrent UTIs who was sent to the ER from adult foster care for worsening shortness of breath and wheezing , patient did have a abnormal UA as well as CT abdominal pelvis with concern for stool retention distention of the rectum and possible pneumatosis. On today's evaluation that is 09/15/2022, the patient is afebrile patient is more awake and alert in his breathing comfortably on room air denies any chest pain shortness of breath or cough no abdominal pain or diarrhea Objective - Vital Signs Vital signs: Vital Signs Temp 98.4 F 09/15/22 07:50 Pulse 90 09/15/22 11:59 Resp 14 09/15/22 07:50 BP 117/71 09/15/22 07:50 Pulse Ox 94 L 09/15/22 08:35 FiO2 21 09/14/22 07:25 Intake & Output 09/14/22 09/15/22 09/15/22 18:59 06:59 18:59 Output Total 600 Balance -600 Weight 50.349 kg Output: Urine 600 Uretheral (Kurtz) 300 Other: Voiding Method Indwelling Catheter Indwelling Catheter - Exam GENERAL DESCRIPTION: An elderly female lying in bed in no distress RESPIRATORY SYSTEM: Unlabored breathing , decreased breath sounds at bases HEART: S1 S2 regular rate and rhythm , ABDOMEN: Soft , no tenderness EXTREMITIES: No edema feet - Labs CBC & Chem 7: 09/13/22 20:53 09/13/22 20:53 Labs: Microbiology - Last 24 Hours (Table) 09/13/22 20:53 Blood Culture - Preliminary Blood 09/13/22 20:53 Blood Culture - Preliminary Blood Assessment and Plan (1) Aspiration pneumonia Current Visit: Yes Status: Acute Code(s): J69.0 - PNEUMONITIS DUE TO INHALATION OF FOOD AND VOMIT SNOMED Code(s): 144852191 (2) Proctitis Current Visit: Yes Status: Acute Code(s): K62.89 - OTHER SPECIFIED DISEASES OF ANUS AND RECTUM SNOMED Code(s): 0262439 (3) UTI (urinary tract infection) Current Visit: Yes Status: Acute Code(s): N39.0 - URINARY TRACT INFECTION, SITE NOT SPECIFIED SNOMED Code(s): 85975760 Plan: 1patient present to hospital with shortness of breath and cough in this patient noticed to have significant abnormality on the CT chest abdominal pelvis with concern for fecal impaction and rectal pneumatosis also have a dilated esophagus and concern for possible aspiration pneumonitis, patient also have a positive UA and a component of urine tract infection not entirely excluded 2-patient has cefuroxime allergies that would limit the number of antibiotics safe to use Patient to continue with Unasyn 3 g every 8 hours and monitor clinical course closely Time with Patient: Less than 30
--- NOTE | 2022-09-16 22:46 | P.PN ---
Subjective Progress Note Date: 09/16/22 Principal diagnosis: Possible aspiration pneumonitis and proctitis Patient is a 87-year-old female with a past medical history significant for COPD dementia GERD heart failure history of metastatic breast cancer and recurrent UTIs who was sent to the ER from adult foster care for worsening shortness of breath and wheezing , patient did have a abnormal UA as well as CT abdominal pelvis with concern for stool retention distention of the rectum and possible pneumatosis. On today's evaluation that is 09/16/2022, the patient remains to be afebrile patient is breathing comfortably on room air denies any chest pain shortness of breath or cough no abdominal pain or diarrhea Objective - Vital Signs Vital signs: Vital Signs Temp 97.8 F 09/16/22 13:54 Pulse 78 09/16/22 15:19 Resp 17 09/16/22 13:54 BP 135/78 09/16/22 13:54 Pulse Ox 95 09/16/22 13:54 FiO2 21 09/14/22 07:25 Intake & Output 09/15/22 09/16/22 09/16/22 18:59 06:59 18:59 Output Total 490 400 Balance -490 -400 Output: Urine 490 400 Other: Voiding Method Indwelling Catheter Indwelling Catheter - Exam GENERAL DESCRIPTION: An elderly female lying in bed in no distress RESPIRATORY SYSTEM: Unlabored breathing , decreased breath sounds at bases HEART: S1 S2 regular rate and rhythm , ABDOMEN: Soft , no tenderness EXTREMITIES: No edema feet - Labs CBC & Chem 7: 09/13/22 20:53 09/13/22 20:53 Labs: Microbiology - Last 24 Hours (Table) 09/13/22 22:26 Urine Culture - Preliminary Urine,Catheterized Group D Enterococcus Gram Neg Bacilli 09/13/22 20:53 Blood Culture - Preliminary Blood 09/13/22 20:53 Blood Culture - Preliminary Blood Assessment and Plan (1) Aspiration pneumonia Current Visit: Yes Status: Acute Code(s): J69.0 - PNEUMONITIS DUE TO INHALATION OF FOOD AND VOMIT SNOMED Code(s): 186916799 (2) Proctitis Current Visit: Yes Status: Acute Code(s): K62.89 - OTHER SPECIFIED DISEASES OF ANUS AND RECTUM SNOMED Code(s): 3831489 (3) UTI (urinary tract infection) Current Visit: Yes Status: Acute Code(s): N39.0 - URINARY TRACT INFECTION, SITE NOT SPECIFIED SNOMED Code(s): 57968703 Plan: 1patient present to hospital with shortness of breath and cough in this patient noticed to have significant abnormality on the CT chest abdominal pelvis with concern for fecal impaction and rectal pneumatosis also have a dilated esophagus and concern for possible aspiration pneumonitis, patient also have a positive UA and a component of urine tract infection not entirely excluded 2-patient has cefuroxime allergies that would limit the number of antibiotics safe to use 3Patient urine is currently growing enterococcus and gram-negative, patient to continue with Unasyn 3 g every 8 hours and monitor clinical course closely Time with Patient: Less than 30
[2022-09-17] MEDS: methylPREDNISolone SOD SUCCI 40 MG/ML 1 ML VIAL IV SCH ×3 (00:27→16:32)
[2022-09-17] MEDS: PANTOPRAZOLE 40 MG TABLET PO SCH (06:39)
[2022-09-17] MEDS: LEVOTHYROXINE 50 MCG TAB PO SCH (06:39)
[2022-09-17] MEDS: AMPICILLIN-SULBACTAM 3 GM in SODIUM CHLORIDE 0.9% 100 ML IVPB SCH ×3 (06:39→20:36)
[2022-09-17] MEDS: IPRATROPIUM-ALBUTEROL 3 ML NEB INHALATION SCH ×4 (08:00→21:14)
[2022-09-17] MEDS: LACTULOSE 20 GM/30 ML CUP PO SCH ×3 (10:22→20:37)
[2022-09-17] MEDS: MEMANTINE 5 MG TAB PO SCH ×2 (10:22→20:37)
[2022-09-17] MEDS: DOXYCYCLINE 100 MG CAP PO SCH ×2 (10:22→20:37)
[2022-09-17] MEDS: atenoloL 25 MG TAB PO SCH (10:22)
[2022-09-17] MEDS: MULTIVITAMINS, THERA 1 EACH TAB PO SCH (10:22)
[2022-09-17] MEDS: POTASSIUM CHLORIDE ER 20 MEQ TAB.ER PO SCH (10:22)
[2022-09-17] MEDS: ASPIRIN 81 MG PO SCH (10:22)
[2022-09-17] MEDS: FERROUS SULFATE 325 MG TAB PO SCH (10:22)
--- NOTE | 2022-09-17 11:21 | P.PN ---
Subjective Progress Note Date: 09/17/22 CHIEF COMPLAINT: Fecal impaction HISTORY OF PRESENT ILLNESS: Patient has had no bowel movements since she received the enema on September 14. She denies any abdominal pain. Denies any nausea or vomiting. She has been tolerating clear liquids. She's scheduled for an upper GI for further evaluation of the esophageal dilation. Patient is on antibiotics for possible aspiration pneumonitis possibly UTI as well as proctitis and followed by ID. Afebrile. WBC 7.6 PHYSICAL EXAM: VITAL SIGNS: Reviewed. GENERAL: Well-developed in no acute distress. HEENT: No sclera icterus. Extraocular movements grossly intact. Moist buccal mucosa. Head is atraumatic, normocephalic. ABDOMEN: Soft. Nondistended. Nontender. NEUROLOGIC:awake and alert. Orientated x [address] and name ASSESSMENT: 1. Fecal impaction 2. Proctitis 3. Esophageal dilation PLAN: -Upper GI scheduled for today for evaluation of esophageal dilation -Continue lactulose for fecal impaction -Continue antibiotics for proctitis Physician Sounding Device Operator note has been reviewed by physician. Signing provider agrees with the documented findings, assessment, and plan of care. Objective - Vital Signs Vital signs: Vital Signs Temp 98.2 F 09/17/22 07:19 Pulse 88 09/17/22 08:24 Resp 18 09/17/22 07:19 BP 154/107 09/17/22 07:19 Pulse Ox 96 09/17/22 08:02 FiO2 21 09/17/22 08:02 Intake & Output 09/16/22 09/17/22 09/17/22 18:59 06:59 18:59 Intake Total 118 Output Total 500 350 Balance -500 -350 118 Intake: Oral 118 Output: Urine 500 350 Other: Voiding Method Indwelling Catheter Indwelling Catheter Indwelling Catheter - Labs CBC & Chem 7: 09/13/22 20:53 09/13/22 20:53 Labs: Microbiology - Last 24 Hours (Table) 09/13/22 20:53 Blood Culture - Preliminary Blood 09/13/22 20:53 Blood Culture - Preliminary Blood 09/13/22 22:26 Urine Culture - Preliminary Urine,Catheterized Group D Enterococcus Gram Neg Bacilli
--- NOTE | 2022-09-17 11:47 | FL ---
EXAMINATION TYPE: FL UGI air w esophagus DATE OF EXAM: 09/17/2022 11:28 AM CLINICAL INDICATION:Female, 87 years old with history of GERD; COMPARISON: CT chest abdomen and pelvis. TECHNIQUE: The procedure was explained and patient history elicited. All patient questions were ans wered prior to start of procedure. A buildings and grounds coordinator radiograph of the abdomen was also reviewed. Multiple flu oroscopic spot images of the esophagus, stomach and duodenum were obtained following ingestion of liq uid barium and EZ-gas crystals. Fluoroscopic time: 46 seconds Fluoroscopic images: 0 Radiographs taken: 140 DAP: 770.15 Gycm2 FINDINGS: There is delayed transit oral contrast and dilation of the esophagus with contrast extending down tow ards the stomach. The contrast but extending to the stomach and immediately refluxed back into the es ophagus. The gastric esophageal region is patulous. Multiple attempts to get the patient to swallow r un as well as positioning the patient more upright get the oral contrast into the stomach was attempt ed. It was terminated at that time. IMPRESSION: Limited examination secondary to patient position and status. There is delayed transit through the es ophagus with reflux of contents from the stomach to the distal esophagus. Oral contrast would enter t he stomach and immediately refluxed back into esophagus. Multiple attempts at swallowing and inclinin g the table were attempted. Exam was terminated at that time. Significant gastroesophageal reflux tj ntified.
[2022-09-17] MEDS: LEVOFLOXACIN 500MG-D5W PMX 500 MG in DEXTROSE/WATER 1 100ML.BAG IVPB SCH (15:05)
--- NOTE | 2022-09-17 16:19 | P.GSCN ---
History of Present Illness Consult date: 09/17/22 History of present illness: 87-year-old female in the hospital with COPD exacerbation. She lives in adult foster care. Apparently the daughter has asked to have the Kurtz catheter removed that she has had in for several months. We are asked to see the patient. Patient can give me no history whatsoever. The daughter is not immediately available. In reviewing the previous admission she has had recurrent urinary infections. There is no other urologic history that I can see. There is a tiny 2 mm right renal nonobstructing stone. Her infections have been different antibiotics. Whether these infections were due to an indwelling catheter is indeterminate. 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 Past Anesthesia/Blood Transfusion Reactions: No Reported Reaction Past Psychological History: No Psychological Hx Reported Smoking Status: Unknown if ever smoked Past Alcohol Use History: None Reported Past Drug Use History: None Reported - Past Family History Father Additional Family Medical History / Comment(s): heart disease. Mother Additional Family Medical History / Comment(s): heart disease. Sister(s) Family Medical History: Cancer Additional Family Medical History / Comment(s): 3 SISTERS WITH BREAST CA Medications and Allergies Home Medications Medication Instructions Recorded Confirmed Type Levothyroxine Sodium [Synthroid] 50 mcg PO DAILY 04/01/17 09/13/22 History Multivitamins, Thera [Multivitamin 1 tab PO DAILY 11/02/19 09/13/22 History (formulary)] Omeprazole 40 mg PO DAILY 11/02/19 09/13/22 History Sennosides [Senokot] 8.6 mg PO DAILY PRN 05/25/22 09/13/22 History Potassium Chloride ER [K-Dur 20] 20 meq PO DAILY 90 Days #90 tab 05/31/22 09/13/22 Rx Aspirin EC [Ecotrin Low Dose] 81 mg PO DAILY 06/15/22 09/13/22 History Donepezil [Aricept] 10 mg PO HS 90 Days #90 tab 06/19/22 09/13/22 Rx Memantine [Namenda] 5 mg PO BID 90 Days #180 tab 06/19/22 09/13/22 Rx Ferrous Sulfate [Iron (65 MG 325 mg PO DAILY 07/24/22 09/13/22 History Elemental)] Acetaminophen Tab [Tylenol Tab] 650 mg PO Q4H PRN #30 tablet 07/31/22 09/13/22 Rx Cefdinir [Omnicef] 300 mg PO Q12HR #20 capsule 08/23/22 09/13/22 Rx Sulfamethox-Tmp 800-160Mg [Bactrim 1 tab PO Q12HR #14 tab 09/10/22 09/13/22 Rx DS 800-160 mg] atenoloL [Tenormin] 25 mg PO DAILY 09/13/22 09/13/22 History Allergies Allergy/AdvReac Type Severity Reaction Status Date / Time cefuroxime Allergy Intermediate Hives Verified 09/13/22 22:42 Surgical - Exam Vital Signs Temp Pulse Resp BP Pulse Ox 98.3 F 120 H 18 105/59 97 09/13/22 19:58 09/13/22 19:58 09/13/22 19:58 09/13/22 19:58 09/13/22 19:58 - General Frail no pain - Eyes PERRL - ENT no hearing loss - Neck trachea midline - Respiratory normal respiratory effort - Abdomen Abdomen: soft, non tender - Genitourinary Indwelling catheter with clear urine - Neurologic disoriented Results - Labs 09/13/22 20:53 09/13/22 20:53 Microbiology - Last 24 Hours (Table) 09/13/22 22:26 Urine Culture - Preliminary Urine,Catheterized Group D Enterococcus Pseudomonas aeruginosa 09/13/22 20:53 Blood Culture - Preliminary Blood 09/13/22 20:53 Blood Culture - Preliminary Blood - Imaging CT scan - abdomen: report reviewed, image reviewed CT scan - pelvis: report reviewed, image reviewed Assessment and Plan Assessment: Impression: Chronic indwelling catheter. History recurrent infections. Fecal impaction. COPD. Dementia. Recommendations: I do not have an immediate answer as to why the patient is wearing the catheter. I will investigate further to see if she's been seen in t he office try to contact the daughter to get more information supposed to determine whether catheter tomorrow. If I do not get any further information then Kurtz catheter removal to see if she can void would be appropriate.
[2022-09-17] MEDS: ATORVASTATIN 20 MG TAB PO SCH (20:37)
[2022-09-17] MEDS: DONEPEZIL 10 MG TAB PO SCH (20:37)
[2022-09-18] MEDS: methylPREDNISolone SOD SUCCI 40 MG/ML 1 ML VIAL IV SCH ×3 (00:06→15:45)
--- NOTE | 2022-09-18 01:58 | PN ---
PROGRESS NOTE SUBJECTIVE: She remains in, she had upper GI barium swallow today which showed delayed transit through the esophagus with reflux of contents in stomach to distal esophagus with reflux back into the esophagus. Significant GERD was identified. She also had a surgical consult by Dr. Guadalupe. She had recurrent urinary tract infections, indwelling catheter placement. DIAGNOSES: 1. History of recurrent infections. 2. Fecal impaction. 3. COPD. 4. Dementia. We are going to investigate further while the catheter is in, possibly remove the catheter if needed. PROGNOSIS: Guarded with that. Surgical consult seen for aspiration. EGD on Saturday will be ordered by Dr. Conde. Dr. Rivera saw the patient also for recurrent infections, who recommended aspiration pneumonia due to inhalation of food and vomit and proctitis and UTI. CT of the chest shows fecal impaction, rectal pneumatosis, dilated esophagus, possible aspiration pneumonitis and obviously has obviously a gastric reflux Enterococcus gram- negative urine. Continue on Unasyn. Prognosis is guarded. MMODL / IJN: [id number] /
[2022-09-18] MEDS: LEVOTHYROXINE 50 MCG TAB PO SCH (06:51)
[2022-09-18] MEDS: AMPICILLIN-SULBACTAM 3 GM in SODIUM CHLORIDE 0.9% 100 ML IVPB SCH ×3 (06:51→20:19)
--- NOTE | 2022-09-18 07:22 | P.PN ---
Progress Note - Text Progress Note Date: 09/18/22 The patient has an indwelling catheter for a few months. The etiology the catheter placement is indeterminate. Family requested we pull up for a voiding trial. I will do so.
[2022-09-18] MEDS: IPRATROPIUM-ALBUTEROL 3 ML NEB INHALATION SCH ×4 (08:57→21:06)
[2022-09-18] MEDS: ASPIRIN 81 MG PO SCH (09:40)
[2022-09-18] MEDS: DOXYCYCLINE 100 MG CAP PO SCH ×2 (09:40→20:19)
[2022-09-18] MEDS: MULTIVITAMINS, THERA 1 EACH TAB PO SCH (09:40)
[2022-09-18] MEDS: POTASSIUM CHLORIDE ER 20 MEQ TAB.ER PO SCH (09:40)
[2022-09-18] MEDS: FERROUS SULFATE 325 MG TAB PO SCH (09:40)
[2022-09-18] MEDS: atenoloL 25 MG TAB PO SCH (09:40)
[2022-09-18] MEDS: MEMANTINE 5 MG TAB PO SCH ×2 (09:40→20:19)
[2022-09-18] MEDS: LACTULOSE 20 GM/30 ML CUP PO SCH ×3 (09:40→20:19)
[2022-09-18] MEDS: PANTOPRAZOLE 40 MG/10 ML VIAL IVP SCH (10:22)
--- NOTE | 2022-09-18 13:06 | P.PN ---
Subjective Progress Note Date: 09/18/22 CHIEF COMPLAINT: Fecal impaction HISTORY OF PRESENT ILLNESS: Patient sitting up in bed. She is pleasantly confused. She denies any abdominal pain. Upper GI limited exam secondary to patient's position status. There is delayed transit through the esophagus with reflux contents from the stomach to the distal esophagus. Oral contrast would entered the stomach and immediately referred reflux back into the esophagus. Multiple attempts at swallowing and inclining the table were attempted. Exam was terminated at this time. Significant GERD identified. Patient seen by speech therapy. They're recommending a chopped diet. No bowel movement reported per nursing staff. Afebrile. No new labs PHYSICAL EXAM: VITAL SIGNS: Reviewed. GENERAL: Well-developed in no acute distress. HEENT: No sclera icterus. Extraocular movements grossly intact. Moist buccal mucosa. Head is atraumatic, normocephalic. ABDOMEN: Soft. Nondistended. Nontender. NEUROLOGIC:awake and alert. Orientated x [address] and name ASSESSMENT: 1. Fecal impaction 2. Proctitis 3. Esophageal dilation 4. GERD PLAN: -Patient scheduled for EGD tomorrow, 09/19/[address] Conde -Nothing by mouth after midnight -Continue IV Protonix -Continue antibiotics -Chopped diet today Physician Fast Brim Pouncer note has been reviewed by physician. Signing provider agrees with the documented findings, assessment, and plan of care. Objective - Vital Signs Vital signs: Vital Signs Temp 97.9 F 09/18/22 07:24 Pulse 84 09/18/22 09:09 Resp 17 09/18/22 08:00 BP 151/72 09/18/22 07:24 Pulse Ox 94 L 09/18/22 08:58 FiO2 21 09/18/22 08:58 Intake & Output 09/17/22 09/18/22 09/18/22 18:59 06:59 18:59 Intake Total 118 0 Output Total 525 100 300 Balance -407 -100 -300 Weight 50.349 kg Intake: Oral 118 0 Output: Urine 525 100 300 Uretheral (Kurtz) 100 300 Other: Voiding Method Indwelling Catheter Indwelling Catheter Indwelling Catheter - Labs CBC & Chem 7: 09/13/22 20:53 09/13/22 20:53 Labs: Microbiology - Last 24 Hours (Table) 09/13/22 22:26 Urine Culture - Preliminary Urine,Catheterized Group D Enterococcus Pseudomonas aeruginosa
[2022-09-18] MEDS: LEVOFLOXACIN 500MG-D5W PMX 500 MG in DEXTROSE/WATER 1 100ML.BAG IVPB SCH (14:21)
[2022-09-18] MEDS: DONEPEZIL 10 MG TAB PO SCH (20:19)
[2022-09-18] MEDS: ATORVASTATIN 20 MG TAB PO SCH (20:19)
[2022-09-18] MEDS: LACTATED RINGERS 1,000 ML IV SCH (21:40)
--- NOTE | 2022-09-19 05:28 | PN ---
PROGRESS NOTE Dr. Burrell saw her for indwelling catheter for the last few months. Family requested for a voiding trial which we are going to be doing. Surgical consult with esophagus and rectal fecal impaction, proctitis, esophageal dilation, GERD. Scheduled for EGD tomorrow. N.p.o. after midnight. Continue with IV Protonix. Continue with antibiotics for UTI and possible pneumonia. Chopped diet today. Prognosis is guarded. Continue current treatment. OBJECTIVE: GENERAL: She is alert, giving appropriate answers. CARDIOVASCULAR: S1, S2. LUNGS: Transmitted upper sounds. GI: Soft. HEMATOLOGY: Negative for Homans. Please see further orders. MMODL / IJN: [id number] /
[2022-09-19] MEDS: methylPREDNISolone SOD SUCCI 40 MG/ML 1 ML VIAL IV SCH ×4 (05:42→23:46)
[2022-09-19] MEDS: LEVOTHYROXINE 50 MCG TAB PO SCH (06:06)
[2022-09-19] MEDS: AMPICILLIN-SULBACTAM 3 GM in SODIUM CHLORIDE 0.9% 100 ML IVPB SCH (06:06)
[2022-09-19] MEDS: PANTOPRAZOLE 40 MG/10 ML VIAL IVP SCH (08:01)
[2022-09-19] MEDS: MEMANTINE 5 MG TAB PO SCH ×2 (08:02→21:18)
[2022-09-19] MEDS: LACTULOSE 20 GM/30 ML CUP PO SCH ×3 (08:02→21:17)
[2022-09-19] MEDS: FERROUS SULFATE 325 MG TAB PO SCH (08:02)
[2022-09-19] MEDS: MULTIVITAMINS, THERA 1 EACH TAB PO SCH (08:02)
[2022-09-19] MEDS: ASPIRIN 81 MG PO SCH (08:02)
[2022-09-19] MEDS: atenoloL 25 MG TAB PO SCH (08:02)
[2022-09-19] MEDS: POTASSIUM CHLORIDE ER 20 MEQ TAB.ER PO SCH (08:02)
[2022-09-19 08:16] LABS: Anisocytosis Slight; HCT 31.7 % (34.0-46.0); HGB 9.9 gm/dL (11.4-16.0); Hypochromasia Moderate; MCH 28.4 pg (25.0-35.0); MCHC 31.4 g/dL (31.0-37.0); MCV 90.6 fL (80.0-100.0); Mean Platelet Volume 8.1; Platelet Count 272 k/uL (150-450); WBC 14.7 k/uL (3.8-10.6)
[2022-09-19 08:29] LABS: African American GFR (CKD) >90 (>60 ml/min/1.73 sqM); Anion Gap 7 mmol/L; Blood Urea Nitrogen 20 mg/dL (7-17); Calcium 7.8 mg/dL (8.4-10.2); Carbon Dioxide 17 mmol/L (22-30); Chloride 113 mmol/L (98-107); Glucose 149 mg/dL (74-99); Non-African American GFR(CKD) 82 (>60 ml/min/1.73 sqM); Sodium 137 mmol/L (137-145)
[2022-09-19] MEDS: IPRATROPIUM-ALBUTEROL 3 ML NEB INHALATION SCH ×4 (08:30→20:41)
--- NOTE | 2022-09-19 09:23 | P.PN ---
Subjective Progress Note Date: 09/19/22 We are asked to see for removal of her indwelling catheter which is been in place for a few months. The patient is voiding better incontinent as expected. A bladder scan will be obtained. Objective - Vital Signs Vital signs: Vital Signs Temp 98.7 F 09/19/22 07:28 Pulse 89 09/19/22 08:40 Resp 18 09/19/22 07:28 BP 104/51 09/19/22 07:28 Pulse Ox 96 09/19/22 07:28 FiO2 21 09/18/22 08:58 Intake & Output 09/18/22 09/19/22 09/19/22 18:59 06:59 18:59 Output Total 300 Balance -300 Output: Urine 300 Uretheral (Kurtz) 300 Other: Voiding Method Diaper Diaper Incontinent Incontinent # Voids 1 2 # Bowel Movements 1 - Labs CBC & Chem 7: 09/19/22 07:52 09/19/22 07:52 Labs: Abnormal Lab Results - Last 24 Hours (Table) 09/19/22 09/19/22 Range/Units 07:52 07:52 WBC 14.7 H (3.8-10.6) k/uL RBC 3.50 L (3.80-5.40) m/uL Hgb 9.9 L (11.4-16.0) gm/dL Hct 31.7 L (34.0-46.0) % RDW 16.0 H (11.5-15.5) % Chloride 113 H (98-107) mmol/L Carbon Dioxide 17 L (22-30) mmol/L BUN 20 H (7-17) mg/dL Glucose 149 H (74-99) mg/dL Calcium 7.8 L (8.4-10.2) mg/dL Microbiology - Last 24 Hours (Table) 09/13/22 20:53 Blood Culture - Final Blood 09/13/22 20:53 Blood Culture - Final Blood Assessment and Plan Assessment: Impression: Kurtz catheter is discontinued. Incontinence as expected due to her Alzheimer's recommendations: Bladder scan residual
--- NOTE | 2022-09-19 10:32 | CDI ---
Documentation Clarification Form Date: 09/19/2022 10:10:04 AM From: Roberta Mullen Phone: Admit Date: 09/13/2022 10:32:00 PM Patient Name: Emely Whiting Visit Number: [id number] Discharge Date: ATTENTION: The Clinical Documentation Specialists (CDI) and [facility] Coding Staff appreciate your assistance in clarifying documentation. Please respond to the clarification below the line at the bottom and electronically sign. The CDI & [facility] Coding staff will review the response and follow-up if needed. Please note: Queries are made part of the Legal Health Record. If you have any questions, please contact the author of this message via ITS. Dr. Victor Hugo Zhong Patient has a documented BMI of 18.5. Additional clarification is requested. History/Risk Factors: metastatic breast cancer, dementia, COPD and GERD. Admitted with UTI, bronchitis, aspiration pneumonia and proctitis. Clinical Indicators: poor intake, clear liquid diet for 4 days, underweight 09/17 UGI: Oral contrast would enter the stomach and immediately refluxed back into esophagus. Significant GERD Patients weight is 50kg Patients height is 5ft 5in Calculated BMI is 18.5 Treatments: high calorie/protein diet, Ensure clear TID Dietary Consult: Underweight Please clarify, is there is an additional diagnosis that is clinically appropriate for this patient? [ ] Underweight [ ] Malnutrition, (further specify severity of mild, moderate or severe) [ ] Other, please specify [ ] Unable to determine MTDD
[2022-09-19] MEDS ORDERED: AMPICILLIN-SULBACTAM 3 GM in SODIUM CHLORIDE 0.9% 100 ML IVPB SCH (12:00)
--- NOTE | 2022-09-19 16:10 | P.PN ---
Subjective Progress Note Date: 09/19/22 CHIEF COMPLAINT: Fecal impaction HISTORY OF PRESENT ILLNESS: Patient sitting up in bed. She is pleasantly confused. She denies any abdominal pain. Upper GI limited exam secondary to patient's position status. There is delayed transit through the esophagus with reflux contents from the stomach to the distal esophagus. Oral contrast would entered the stomach and immediately referred reflux back into the esophagus. Multiple attempts at swallowing and inclining the table were attempted. Exam was terminated at this time. Significant GERD identified. Patient seen by speech therapy. They're recommending a chopped diet. Patient was scheduled for EGD today. However she did eat breakfast this morning. Procedure was canceled. PHYSICAL EXAM: VITAL SIGNS: Reviewed. GENERAL: Well-developed in no acute distress. ABDOMEN: Soft. Nondistended. Nontender. ASSESSMENT: 1. Fecal impaction 2. Proctitis 3. Esophageal dilation 4. GERD PLAN: -Patient is rescheduled for EGD tomorrow with Dr. baeza. Patient ate breakfast this morning -Nothing by mouth after midnight -Continue IV Protonix -Continue antibiotics -Chopped diet today Physician Pallet Sorter note has been reviewed by physician. Signing provider agrees with the documented findings, assessment, and plan of care. Objective - Vital Signs Vital signs: Vital Signs Temp 98.7 F 09/19/22 07:28 Pulse 89 09/19/22 08:40 Resp 18 09/19/22 07:28 BP 104/51 09/19/22 07:28 Pulse Ox 96 09/19/22 07:28 FiO2 21 09/18/22 08:58 Intake & Output 09/18/22 09/19/22 09/19/22 18:59 06:59 18:59 Output Total 300 Balance -300 Output: Urine 300 Uretheral (Kurtz) 300 Other: Voiding Method Diaper Diaper Diaper Incontinent Incontinent Incontinent # Voids 1 2 # Bowel Movements 1 - Labs CBC & Chem 7: 09/19/22 07:52 09/19/22 07:52 Labs: Abnormal Lab Results - Last 24 Hours (Table) 09/19/22 09/19/22 Range/Units 07:52 07:52 WBC 14.7 H (3.8-10.6) k/uL RBC 3.50 L (3.80-5.40) m/uL Hgb 9.9 L (11.4-16.0) gm/dL Hct 31.7 L (34.0-46.0) % RDW 16.0 H (11.5-15.5) % Chloride 113 H (98-107) mmol/L Carbon Dioxide 17 L (22-30) mmol/L BUN 20 H (7-17) mg/dL Glucose 149 H (74-99) mg/dL Calcium 7.8 L (8.4-10.2) mg/dL Microbiology - Last 24 Hours (Table) 09/13/22 20:53 Blood Culture - Final Blood 09/13/22 20:53 Blood Culture - Final Blood
--- NOTE | 2022-09-19 16:14 | P.PN ---
Subjective Progress Note Date: 09/17/22 Principal diagnosis: Possible aspiration pneumonitis and proctitis Patient is a 87-year-old female with a past medical history significant for COPD dementia GERD heart failure history of metastatic breast cancer and recurrent UTIs who was sent to the ER from adult foster care for worsening shortness of breath and wheezing , patient did have a abnormal UA as well as CT abdominal pelvis with concern for stool retention distention of the rectum and possible pneumatosis. On today's evaluation that is 09/17/2022, the patient continues to be afebrile patient is breathing comfortably on room air, the patient denies any chest pain shortness of breath or cough no abdominal pain or diarrhea Objective - Vital Signs Vital signs: Vital Signs Temp 98.2 F 09/17/22 07:19 Pulse 84 09/17/22 11:51 Resp 18 09/17/22 07:19 BP 154/107 09/17/22 07:19 Pulse Ox 96 09/17/22 08:02 FiO2 21 09/17/22 08:02 Intake & Output 09/16/22 09/17/22 09/17/22 18:59 06:59 18:59 Intake Total 118 Output Total 500 350 Balance -500 -350 118 Weight 50.349 kg Intake: Oral 118 Output: Urine 500 350 Other: Voiding Method Indwelling Catheter Indwelling Catheter Indwelling Catheter - Exam GENERAL DESCRIPTION: An elderly female lying in bed in no distress RESPIRATORY SYSTEM: Unlabored breathing , decreased breath sounds at bases HEART: S1 S2 regular rate and rhythm , ABDOMEN: Soft , no tenderness EXTREMITIES: No edema feet - Labs CBC & Chem 7: 09/19/22 07:52 09/19/22 07:52 Labs: Microbiology - Last 24 Hours (Table) 09/13/22 20:53 Blood Culture - Preliminary Blood 09/13/22 20:53 Blood Culture - Preliminary Blood 09/13/22 22:26 Urine Culture - Preliminary Urine,Catheterized Group D Enterococcus Gram Neg Bacilli Assessment and Plan (1) Aspiration pneumonia Current Visit: Yes Status: Acute Code(s): J69.0 - PNEUMONITIS DUE TO INHALATION OF FOOD AND VOMIT SNOMED Code(s): 512510164 (2) Proctitis Current Visit: Yes Status: Acute Code(s): K62.89 - OTHER SPECIFIED DISEASES OF ANUS AND RECTUM SNOMED Code(s): 7405975 (3) UTI (urinary tract infection) Current Visit: Yes Status: Acute Code(s): N39.0 - URINARY TRACT INFECTION, SITE NOT SPECIFIED SNOMED Code(s): 41736674 Plan: 1patient present to hospital with shortness of breath and cough in this patient noticed to have significant abnormality on the CT chest abdominal pelvis with concern for fecal impaction and rectal pneumatosis also have a dilated esophagus and concern for possible aspiration pneumonitis, patient also have a positive UA and a component of urine tract infection not entirely excluded 2-patient has cefuroxime allergies that would limit the number of antibiotics safe to use 3Patient urine is currently growing enterococcus and gram-negative, patient to continue with Unasyn 3 g every 8 hours while waiting for the cultures to finalize
--- NOTE | 2022-09-19 16:15 | P.PN ---
Subjective Progress Note Date: 09/18/22 Principal diagnosis: Possible aspiration pneumonitis and proctitis Patient is a 87-year-old female with a past medical history significant for COPD dementia GERD heart failure history of metastatic breast cancer and recurrent UTIs who was sent to the ER from adult foster care for worsening shortness of breath and wheezing , patient did have a abnormal UA as well as CT abdominal pelvis with concern for stool retention distention of the rectum and possible pneumatosis. On today's evaluation that is 09/18/2022, the patient remains to be afebrile patient is breathing comfortably on room air, the patient denies any chest pain shortness of breath or cough no abdominal pain and no diarrhea has been reported Objective - Vital Signs Vital signs: Vital Signs Temp 98.1 F 09/18/22 13:47 Pulse 90 09/18/22 13:47 Resp 17 09/18/22 13:47 BP 156/68 09/18/22 13:47 Pulse Ox 96 09/18/22 13:47 FiO2 21 09/18/22 08:58 Intake & Output 09/17/22 09/18/22 09/18/22 18:59 06:59 18:59 Intake Total 118 0 Output Total 525 100 300 Balance -407 -100 -300 Weight 50.349 kg Intake: Oral 118 0 Output: Urine 525 100 300 Uretheral (Kurtz) 100 300 Other: Voiding Method Indwelling Catheter Indwelling Catheter Indwelling Catheter - Exam GENERAL DESCRIPTION: An elderly female lying in bed in no distress RESPIRATORY SYSTEM: Unlabored breathing , decreased breath sounds at bases HEART: S1 S2 regular rate and rhythm , ABDOMEN: Soft , no tenderness EXTREMITIES: No edema feet - Labs CBC & Chem 7: 09/19/22 07:52 09/19/22 07:52 Labs: Microbiology - Last 24 Hours (Table) 09/13/22 22:26 Urine Culture - Preliminary Urine,Catheterized Group D Enterococcus Pseudomonas aeruginosa Assessment and Plan (1) Aspiration pneumonia Current Visit: Yes Status: Acute Code(s): J69.0 - PNEUMONITIS DUE TO INHALATION OF FOOD AND VOMIT SNOMED Code(s): 248759746 (2) Proctitis Current Visit: Yes Status: Acute Code(s): K62.89 - OTHER SPECIFIED DISEASES OF ANUS AND RECTUM SNOMED Code(s): 1208265 (3) UTI (urinary tract infection) Current Visit: Yes Status: Acute Code(s): N39.0 - URINARY TRACT INFECTION, SITE NOT SPECIFIED SNOMED Code(s): 77998147 Plan: 1patient present to hospital with shortness of breath and cough in this patient noticed to have significant abnormality on the CT chest abdominal pelvis with concern for fecal impaction and rectal pneumatosis also have a dilated esophagus and concern for possible aspiration pneumonitis, patient also have a positive UA and a component of urine tract infection not entirely excluded 2-patient has cefuroxime allergies that would limit the number of antibiotics safe to use 3Patient seemed to have shortness clinical improvement on Unasyn to continue that should cover the rectal pneumatosis and possible UTI Time with Patient: Less than 30
--- NOTE | 2022-09-19 16:16 | P.PN ---
Subjective Progress Note Date: 09/19/22 Principal diagnosis: Possible aspiration pneumonitis and proctitis Patient is a 87-year-old female with a past medical history significant for COPD dementia GERD heart failure history of metastatic breast cancer and recurrent UTIs who was sent to the ER from adult foster care for worsening shortness of breath and wheezing , patient did have a abnormal UA as well as CT abdominal pelvis with concern for stool retention distention of the rectum and possible pneumatosis. On today's evaluation that is 09/19/2022, the patient continues to be afebrile patient is breathing comfortably on room air, the patient denies any chest pain shortness of breath or cough, The patient denies abdominal pain and no diarrhea has been reported Objective - Vital Signs Vital signs: Vital Signs Temp 98.7 F 09/19/22 07:28 Pulse 87 09/19/22 12:10 Resp 18 09/19/22 07:28 BP 104/51 09/19/22 07:28 Pulse Ox 96 09/19/22 07:28 FiO2 21 09/18/22 08:58 Intake & Output 09/18/22 09/19/22 09/19/22 18:59 06:59 18:59 Output Total 300 Balance -300 Weight 50.349 kg Output: Urine 300 Uretheral (Kurtz) 300 Other: Voiding Method Diaper Diaper Diaper Incontinent Incontinent Incontinent # Voids 1 2 # Bowel Movements 1 - Exam GENERAL DESCRIPTION: An elderly female lying in bed in no distress RESPIRATORY SYSTEM: Unlabored breathing , decreased breath sounds at bases HEART: S1 S2 regular rate and rhythm , ABDOMEN: Soft , no tenderness EXTREMITIES: No edema feet - Labs CBC & Chem 7: 09/19/22 07:52 09/19/22 07:52 Labs: Abnormal Lab Results - Last 24 Hours (Table) 09/19/22 09/19/22 Range/Units 07:52 07:52 WBC 14.7 H (3.8-10.6) k/uL RBC 3.50 L (3.80-5.40) m/uL Hgb 9.9 L (11.4-16.0) gm/dL Hct 31.7 L (34.0-46.0) % RDW 16.0 H (11.5-15.5) % Chloride 113 H (98-107) mmol/L Carbon Dioxide 17 L (22-30) mmol/L BUN 20 H (7-17) mg/dL Glucose 149 H (74-99) mg/dL Calcium 7.8 L (8.4-10.2) mg/dL Microbiology - Last 24 Hours (Table) 09/13/22 20:53 Blood Culture - Final Blood 09/13/22 20:53 Blood Culture - Final Blood Assessment and Plan (1) Aspiration pneumonia Current Visit: Yes Status: Acute Code(s): J69.0 - PNEUMONITIS DUE TO INHALATION OF FOOD AND VOMIT SNOMED Code(s): 131139047 (2) Proctitis Current Visit: Yes Status: Acute Code(s): K62.89 - OTHER SPECIFIED DISEASES OF ANUS AND RECTUM SNOMED Code(s): 8385213 (3) UTI (urinary tract infection) Current Visit: Yes Status: Acute Code(s): N39.0 - URINARY TRACT INFECTION, SITE NOT SPECIFIED SNOMED Code(s): 23571042 Plan: 1patient present to hospital with shortness of breath and cough in this patient noticed to have significant abnormality on the CT chest abdominal pelvis with concern for fecal impaction and rectal pneumatosis also have a dilated esophagus and concern for possible aspiration pneumonitis, patient also have a positive UA and a component of urine tract infection not entirely excluded 2-patient has cefuroxime allergies that would limit the number of antibiotics safe to use 3Patient seemed to have shortness clinical improvement on Unasyn to continue that should cover the rectal pneumatosis, however urine culture now growing VRE and a Pseudomonas the question of possible contamination versus pathogen we will repeat her UA switch antibiotics to daptomycin and Zosyn while waiting for repeat UA to finalize Time with Patient: Less than 30
[2022-09-19] MEDS: LEVOFLOXACIN 500MG-D5W PMX 500 MG in DEXTROSE/WATER 1 100ML.BAG IVPB SCH (16:24)
[2022-09-19] MEDS: PIPERACILLIN-TAZOBACTAM 3.375 GM in SODIUM CHLORIDE 0.9% 100 ML IVPB SCH ×2 (16:52→23:46)
[2022-09-19] MEDS: DAPTOmycin 200 MG in SODIUM CHLORIDE 0.9% 50 ML IVPB SCH (17:37)
[2022-09-19] MEDS: DONEPEZIL 10 MG TAB PO SCH (21:18)
[2022-09-19 22:26] LABS: Appearance,Urine Clear (Clear); Bilirubin,Urine Negative (Negative); Blood,Urine Negative (Negative); Budding Yeast,Urine Many /hpf; Color,Urine Yellow; Glucose,Urine (UA) Trace (Negative); Hyaline Casts,Urine 1 /lpf (0-2); Ketones,Urine Trace (Negative); Leukocyte Esterase,Urine Trace (Negative); Mucus,Urine Rare /hpf; Nitrite,Urine Negative (Negative); PH, Urine 5.5 (5.0-8.0); Protein,Urine Trace (Negative); RBC,Urine 10 /hpf (0-5); Specific Gravity,Urine 1.021 (1.001-1.035); Squamous Epithelial Cell,Urine 1 /hpf (0-4); Urobilinogen,Urine <2.0 mg/dL (<2.0); WBC,Urine 8 /hpf (0-5)
[2022-09-20] MEDS: LACTATED RINGERS 1,000 ML IV SCH (01:59)
[2022-09-20] MEDS: LEVOTHYROXINE 50 MCG TAB PO SCH (06:02)
--- NOTE | 2022-09-20 06:15 | P.PN ---
Progress Note - Text Progress Note Date: 09/20/22 The patients catheter has been removed. SHe is incontinent as expected. Her pvt is 81 I have no further recommendations
[2022-09-20] MEDS: IPRATROPIUM-ALBUTEROL 3 ML NEB INHALATION SCH ×4 (09:41→22:06)
[2022-09-20] MEDS: MEMANTINE 5 MG TAB PO SCH ×2 (09:51→21:23)
[2022-09-20] MEDS: LACTULOSE 20 GM/30 ML CUP PO SCH ×3 (09:51→21:23)
[2022-09-20] MEDS: MULTIVITAMINS, THERA 1 EACH TAB PO SCH (09:51)
[2022-09-20] MEDS: PIPERACILLIN-TAZOBACTAM 3.375 GM in SODIUM CHLORIDE 0.9% 100 ML IVPB SCH ×3 (09:52→23:56)
[2022-09-20] MEDS: PANTOPRAZOLE 40 MG/10 ML VIAL IVP SCH (09:54)
[2022-09-20] MEDS: methylPREDNISolone SOD SUCCI 40 MG/ML 1 ML VIAL IV SCH ×3 (09:55→23:56)
[2022-09-20] MEDS: FERROUS SULFATE 325 MG TAB PO SCH ×2 (10:01→11:27)
[2022-09-20] MEDS ORDERED: LIDOCAINE 2% INJ 20 MG/ML (2 ML VIAL) ONE (10:46)
[2022-09-20] MEDS ORDERED: PROPOFOL 10 MG/ML 20 ML VIAL IV ONE (10:46)
[2022-09-20] MEDS ORDERED: IV FLUID CONTINUATION 1,000 ML IV ONE (10:54)
--- NOTE | 2022-09-20 10:58 | P.OP ---
Date of Procedure: 09/20/22 Preoperative Diagnosis: GERD Dysphagia Postoperative Diagnosis: Hiatal hernia Reflux Procedure(s) Performed: EGD Anesthesia: MAC Surgeon: Sorin Conde Pathology: none sent Condition: stable Disposition: PACU Description of Procedure: The patient's placed on the endoscopy table lateral position her she received IV sedation. The gastroscope placed oropharynx and then into the esophagus. There was a large amount liquid the esophagus. The scope was then advanced after the liquid was aspirated. The scope was placed in the stomach. There was retained food and liquids to the stomach. Due to the risk of reflux the scope could not be advanced into the antrum. Scope was brought back under suction. There appeared to be evidence of a hiatal hernia. There was spontaneous reflux of stomach contents into the esophagus. This was suctioned. Scope was withdrawn for patient. The patient did not appear cavity aspiration during the procedure.
[2022-09-20 11:15] LABS: HCT 31.3 % (37.2-46.3); HGB 9.8 d/dL (12.0-15.0); MCH 28.1 pg (27.0-32.0); MCHC 31.3 d/dL (32.0-37.0); MCV 89.7 FL (80.0-97.0); Mean Platelet Volume 9.9 FL (9.5-12.2); NRBC Per 100 WBC 0 X 10*3/uL (0.00-0.01); Platelet Count 288 X 10*3/uL (140-440); RBC 3.49 X 10*6/uL (4.10-5.20); RDW 16.9 % (11.5-14.5); WBC 17.37 X 10*3/uL (4.50-10.00)
[2022-09-20 11:18] LABS: BUN/Creat Ratio 25.67 Ratio (12.00-20.00); Blood Urea Nitrogen 15.4 mg/dL (9.0-27.0); Calcium 8.1 mg/dL (8.7-10.3); Carbon Dioxide 16.9 mmol/L (21.6-31.8); Chloride 109 mmol/L (96-109); Glucose 159 mg/dL (70-110); Potassium 3.5 mmol/L (3.5-5.5); Sodium 138 mmol/L (135-145)
[2022-09-20] MEDS: atenoloL 25 MG TAB PO SCH (11:26)
[2022-09-20] MEDS: ASPIRIN 81 MG PO SCH (11:26)
[2022-09-20] MEDS: POTASSIUM CHLORIDE ER 20 MEQ TAB.ER PO SCH (11:27)
--- NOTE | 2022-09-20 13:46 | P.PN ---
Subjective Progress Note Date: 09/20/22 Principal diagnosis: Possible aspiration pneumonitis and proctitis Patient is a 87-year-old female with a past medical history significant for COPD dementia GERD heart failure history of metastatic breast cancer and recurrent UTIs who was sent to the ER from adult foster care for worsening shortness of breath and wheezing , patient did have a abnormal UA as well as CT abdominal pelvis with concern for stool retention distention of the rectum and possible pneumatosis. On today's evaluation that is 09/20/2022, the patient remains to be afebrile patient is breathing comfortably on room air, the patient denies any chest pain shortness of breath or cough, The patient denies abdominal pain and no diarrhea has been reported by the nursing staff Objective - Vital Signs Vital signs: Vital Signs Temp 98.5 F 09/20/22 07:28 Pulse 90 09/20/22 09:54 Resp 18 09/20/22 07:28 BP 166/78 09/20/22 07:28 Pulse Ox 98 09/20/22 09:41 FiO2 21 09/18/22 08:58 Intake & Output 09/19/22 09/20/22 09/20/22 18:59 06:59 18:59 Intake Total 50 Output Total 150 Balance -150 50 Weight 50.349 kg Intake: IV 50 Output: Urine 150 Straight 150 Other: Voiding Method Diaper Diaper Diaper Incontinent Incontinent Incontinent # Voids 3 2 # Bowel Movements 1 1 - Exam GENERAL DESCRIPTION: An elderly female lying in bed in no distress RESPIRATORY SYSTEM: Unlabored breathing , decreased breath sounds at bases HEART: S1 S2 regular rate and rhythm , ABDOMEN: Soft , no tenderness EXTREMITIES: No edema feet - Labs CBC & Chem 7: 09/20/22 07:15 09/20/22 07:15 Labs: Abnormal Lab Results - Last 24 Hours (Table) 09/19/22 09/20/22 09/20/22 Range/Units 21:41 07:15 07:15 WBC 17.37 H (4.50-10.00) X 10*3/uL RBC 3.49 L (4.10-5.20) X 10*6/uL Hgb 9.8 L (12.0-15.0) d/dL Hct 31.3 L (37.2-46.3) % MCHC 31.3 L (32.0-37.0) d/dL RDW 16.9 H (11.5-14.5) % Carbon Dioxide 16.9 L (21.6-31.8) mmol/L Anion Gap 12.10 H (4.00-12.00) mmol/L BUN/Creatinine Ratio 25.67 H (12.00-20.00) Ratio Glucose 159 H (70-110) mg/dL Calcium 8.1 L (8.7-10.3) mg/dL Urine Protein Trace H (Negative) Urine Glucose (UA) Trace H (Negative) Urine Ketones Trace H (Negative) Ur Leukocyte Esterase Trace H (Negative) Urine RBC 10 H (0-5) /hpf Urine WBC 8 H (0-5) /hpf Urine Mucus Rare H (None) /hpf Urine Yeast (Budding) Many H (None) /hpf Assessment and Plan (1) Aspiration pneumonia Current Visit: Yes Status: Acute Code(s): J69.0 - PNEUMONITIS DUE TO INHALATION OF FOOD AND VOMIT SNOMED Code(s): 877005302 (2) Proctitis Current Visit: Yes Status: Acute Code(s): K62.89 - OTHER SPECIFIED DISEASES OF ANUS AND RECTUM SNOMED Code(s): 9297559 (3) UTI (urinary tract infection) Current Visit: Yes Status: Acute Code(s): N39.0 - URINARY TRACT INFECTION, SITE NOT SPECIFIED SNOMED Code(s): 03630186 Plan: 1patient present to hospital with shortness of breath and cough in this patient noticed to have significant abnormality on the CT chest abdominal pelvis with concern for fecal impaction and rectal pneumatosis also have a dilated esophagus and concern for possible aspiration pneumonitis, patient also have a positive UA and a component of urine tract infection not entirely excluded 2-patient has cefuroxime allergies that would limit the number of antibiotics safe to use 3Patient seemed to have shortness clinical improvement on Unasyn to continue that should cover the rectal pneumatosis, however urine culture now growing VRE and a Pseudomonas the question of possible contamination versus pathogen 4- repeat UA mildly positive patient did have elevated white count which is a 17,000 today, patient to continue daptomycin and Zosyn while waiting for repeat UA to finalize Time with Patient: Less than 30
[2022-09-20 14:48] LABS: Basophils # (M) 0 X 10*3/uL (0.00-0.10); Eosinophils # (M) 0 X 10*3/uL (0.04-0.35); Lymphocytes # (M) 1.04 X 10*3/uL (0.90-5.00); Metamyelocytes % 2 % (0-0); Monocytes # (M) 0.52 X 10*3/uL (0.20-1.00); Myelocytes % 2 % (0-0); Neutrophils # (M) 14.94 X 10*3/uL (1.80-7.70); Neutrophils % (M) 86 %; Promyelocytes % 1 %; RBC Morphology Normal (Normal)
[2022-09-20] MEDS: DAPTOmycin 200 MG in SODIUM CHLORIDE 0.9% 50 ML IVPB SCH (17:47)
[2022-09-20] MEDS: DONEPEZIL 10 MG TAB PO SCH (21:23)
[2022-09-21] MEDS: LEVOTHYROXINE 50 MCG TAB PO SCH (05:46)
[2022-09-21] MEDS: LACTATED RINGERS 1,000 ML IV SCH ×2 (07:36→17:25)
[2022-09-21] MEDS: atenoloL 25 MG TAB PO SCH (08:15)
[2022-09-21] MEDS: POTASSIUM CHLORIDE ER 20 MEQ TAB.ER PO SCH (08:15)
[2022-09-21] MEDS: MULTIVITAMINS, THERA 1 EACH TAB PO SCH (08:15)
[2022-09-21] MEDS: ASPIRIN 81 MG PO SCH (08:15)
[2022-09-21] MEDS: MEMANTINE 5 MG TAB PO SCH ×2 (08:15→20:37)
[2022-09-21] MEDS: LACTULOSE 20 GM/30 ML CUP PO SCH ×3 (08:16→20:37)
[2022-09-21] MEDS: PANTOPRAZOLE 40 MG/10 ML VIAL IVP SCH (08:17)
[2022-09-21] MEDS: PIPERACILLIN-TAZOBACTAM 3.375 GM in SODIUM CHLORIDE 0.9% 100 ML IVPB SCH ×2 (08:17→16:31)
[2022-09-21] MEDS: methylPREDNISolone SOD SUCCI 40 MG/ML 1 ML VIAL IV SCH (08:17)
[2022-09-21] MEDS: FERROUS SULFATE 325 MG TAB PO SCH (08:19)
[2022-09-21] MEDS: IPRATROPIUM-ALBUTEROL 3 ML NEB INHALATION SCH ×4 (08:57→21:11)
[2022-09-21 11:14] LABS: HCT 31.7 % (37.2-46.3); HGB 9.8 d/dL (12.0-15.0); MCH 27.8 pg (27.0-32.0); MCHC 30.9 d/dL (32.0-37.0); MCV 89.8 FL (80.0-97.0); Mean Platelet Volume 10.3 FL (9.5-12.2); NRBC Per 100 WBC 0 X 10*3/uL (0.00-0.01); Platelet Count 278 X 10*3/uL (140-440); RBC 3.53 X 10*6/uL (4.10-5.20); RDW 16.8 % (11.5-14.5); WBC 17.64 X 10*3/uL (4.50-10.00)
[2022-09-21 11:34] LABS: ALT 15 U/L (8-44); AST 12 U/L (13-35); Alkaline Phosphatase 47 U/L (41-126); BUN/Creat Ratio 25.33 Ratio (12.00-20.00); Blood Urea Nitrogen 15.2 mg/dL (9.0-27.0); C Reactive Protein <0.30 mg/dL (0.00-0.80); Calcium 8.4 mg/dL (8.7-10.3); Chloride 108 mmol/L (96-109); Globulin 2.5 d/dL (1.6-3.3); Glucose 161 mg/dL (70-110); Potassium 3.8 mmol/L (3.5-5.5); Sodium 138 mmol/L (135-145); Total Bilirubin 0.3 mg/dL (0.3-1.2); Total Protein 5.5 d/dL (6.2-8.2)
[2022-09-21 12:43] LABS: Basophils # (M) 0 X 10*3/uL (0.00-0.10); Eosinophils # (M) 0 X 10*3/uL (0.04-0.35); Lymphocytes # (M) 0.35 X 10*3/uL (0.90-5.00); Monocytes # (M) 0.88 X 10*3/uL (0.20-1.00); Myelocytes % 1 % (0-0); Neutrophils # (M) 16.23 X 10*3/uL (1.80-7.70); Neutrophils % (M) 92 %; RBC Morphology Normal (Normal)
--- NOTE | 2022-09-21 12:55 | P.PN ---
Subjective Progress Note Date: 09/21/22 CHIEF COMPLAINT: Fecal impaction HISTORY OF PRESENT ILLNESS: Patient's Upper GI is a limited exam secondary to patient's position status. There is delayed transit through the esophagus with reflux contents from the stomach to the distal esophagus. Oral contrast would entered the stomach and immediately referred reflux back into the esophagus. Multiple attempts at swallowing and inclining the table were attempted. Exam was terminated at this time. Significant GERD identified. Patient seen by [facility] therapy. They're recommending a chopped diet. Patient status post EGD with results showing hiatal hernia and GERD. Afebrile. WBC 17.64 Hb 9.8 platelets 278 creatinine 0.6 patient has been having bowel movements. Patient seen and examined with Dr. baeza PHYSICAL EXAM: VITAL SIGNS: Reviewed. GENERAL: Well-developed in no acute distress. ABDOMEN: Soft. Nondistended. Nontender. ASSESSMENT: 1. Fecal impaction improved 2. Proctitis 3. Esophageal dilation 4. GERD 5. Hiatal hernia 6. Possible aspiration pneumonitis PLAN: -No surgical intervention planned -Continue dysphagia chopped diet -Continue to follow aspiration precautions -Continue PPI -Antibiotics per ID service Physician Cake Winder note has been reviewed by physician. Signing provider agrees with the documented findings, assessment, and plan of care. Objective - Vital Signs Vital signs: Vital Signs Temp 97.6 F 09/21/22 02:00 Pulse 88 09/21/22 08:57 Resp 16 09/20/22 20:00 BP 120/65 09/21/22 02:00 Pulse Ox 98 09/21/22 08:57 FiO2 21 09/21/22 08:57 Intake & Output 09/20/22 09/21/22 09/21/22 18:59 06:59 18:59 Intake Total 1000 Balance 1000 Intake: IV 50 Oral 950 Other: Voiding Method Diaper Incontinent # Voids 2 2 - Labs CBC & Chem 7: 09/21/22 06:34 09/21/22 06:34 Labs: Abnormal Lab Results - Last 24 Hours (Table) 09/20/22 09/20/22 Range/Units 07:15 07:15 WBC 17.37 H (4.50-10.00) X 10*3/uL RBC 3.49 L (4.10-5.20) X 10*6/uL Hgb 9.8 L (12.0-15.0) d/dL Hct 31.3 L (37.2-46.3) % MCHC 31.3 L (32.0-37.0) d/dL RDW 16.9 H (11.5-14.5) % Eosinophils # (Manual) 0 L (0.04-0.35) X 10*3/uL Carbon Dioxide 16.9 L (21.6-31.8) mmol/L Anion Gap 12.10 H (4.00-12.00) mmol/L BUN/Creatinine Ratio 25.67 H (12.00-20.00) Ratio Glucose 159 H (70-110) mg/dL Calcium 8.1 L (8.7-10.3) mg/dL
--- NOTE | 2022-09-21 14:58 | P.PN ---
Subjective Progress Note Date: 09/21/22 Patient is a 87-year-old female with a past medical history significant for COPD dementia GERD heart failure history of metastatic breast cancer and recurrent UTIs who was sent to the ER from adult foster care for worsening shortness of breath and wheezing , patient did have a abnormal UA as well as CT abdominal pelvis with concern for stool retention distention of the rectum and possible pneumatosis. 09/21. Dr. Deena alfaro from Dr. Zhong Patient seen and examined. States she feels much better. Denies any shortness of breath. REVIEW OF SYSTEMS: CONSTITUTIONAL: No fever, no malaise,. CARDIOVASCULAR: No chest pain, no palpitations, no syncope. PULMONARY: No shortness of breath, no cough, GASTROINTESTINAL: No diarrhea, no nausea, no vomiting, no abdominal pain. NEUROLOGICAL: No headaches, no weakness, PHYSICAL EXAMINATION: GENERAL: The patient is alert and oriented x3, not in any acute distress. Well developed, well nourished. HEENT: Pupils are round and equally reacting to light. EOMI. No scleral icterus. No conjunctival pallor. Normocephalic, atraumatic. No pharyngeal erythema. No thyromegaly. CARDIOVASCULAR: S1 and S2 present. No murmurs, rubs, or gallops. PULMONARY: Chest is clear to auscultation, no wheezing or crackles. ABDOMEN: Soft, nontender, nondistended, normoactive bowel sounds. No palpable organomegaly. MUSCULOSKELETAL: No joint swelling or deformity. EXTREMITIES: No cyanosis, clubbing, or pedal edema. NEUROLOGICAL: Gross neurological examination did not reveal any focal deficits. SKIN: No rashes. Assessment and plan Aspiration pneumonia Proctitis UTI Fecal impaction improved Esophageal dilation GERD Hiatal hernia Monitor vital signs Monitor CBC Monitor CMP Follow-up and repeat UA Continue daptomycin and Zosyn Continue breathing treatments Decreased IV Solu-Medrol to 40 mg daily Continue rest of treatment for now Follow-up in ID recommendations Gen. surgery following the patient follow-up and PT and OT recommendations DVT prophylaxis: Objective - Vital Signs Vital signs: Vital Signs Temp 98.2 F 09/21/22 07:22 Pulse 78 09/21/22 11:56 Resp 16 09/21/22 08:00 BP 161/83 09/21/22 07:22 Pulse Ox 98 06/23/23 08:57 FiO2 21 09/21/22 08:57 Intake & Output 09/20/22 09/21/22 09/21/22 18:59 06:59 18:59 Intake Total 1000 400 Output Total 0 Balance 1000 400 Weight 50.349 kg Intake: IV 50 Oral 950 400 Output: Urine 0 Other: Voiding Method Diaper Diaper Incontinent Incontinent # Voids 2 2 2 - Labs CBC & Chem 7: 09/21/22 06:34 09/21/22 06:34 Labs: Abnormal Lab Results - Last 24 Hours (Table) 09/21/22 09/21/22 Range/Units 06:34 06:34 WBC 17.64 H (4.50-10.00) X 10*3/uL RBC 3.53 L (4.10-5.20) X 10*6/uL Hgb 9.8 L (12.0-15.0) d/dL Hct 31.7 L (37.2-46.3) % MCHC 30.9 L (32.0-37.0) d/dL RDW 16.8 H (11.5-14.5) % Lymphocytes # (Manual) 0.35 L (0.90-5.00) X 10*3/uL Eosinophils # (Manual) 0 L (0.04-0.35) X 10*3/uL Carbon Dioxide 20.0 L (21.6-31.8) mmol/L BUN/Creatinine Ratio 25.33 H (12.00-20.00) Ratio Glucose 161 H (70-110) mg/dL Calcium 8.4 L (8.7-10.3) mg/dL AST 12 L (13-35) U/L Total Protein 5.5 L (6.2-8.2) d/dL Albumin 3.0 L (3.8-4.9) d/dL Albumin/Globulin Ratio 1.20 L (1.60-3.17) Ratio
[2022-09-21] MEDS: DAPTOmycin 200 MG in SODIUM CHLORIDE 0.9% 50 ML IVPB SCH (17:25)
[2022-09-21] MEDS: DONEPEZIL 10 MG TAB PO SCH (20:37)
[2022-09-22] MEDS: PIPERACILLIN-TAZOBACTAM 3.375 GM in SODIUM CHLORIDE 0.9% 100 ML IVPB SCH ×3 (00:43→16:28)
[2022-09-22] MEDS: LEVOTHYROXINE 50 MCG TAB PO SCH (06:35)
[2022-09-22] MEDS: IPRATROPIUM-ALBUTEROL 3 ML NEB INHALATION SCH ×4 (07:36→22:20)
[2022-09-22] MEDS ORDERED: methylPREDNISolone SOD SUCCI 40 MG/ML 1 ML VIAL IV SCH (09:00)
[2022-09-22] MEDS: LACTULOSE 20 GM/30 ML CUP PO SCH ×3 (10:06→21:32)
[2022-09-22] MEDS: atenoloL 25 MG TAB PO SCH ×2 (10:07→10:08)
[2022-09-22] MEDS: MEMANTINE 5 MG TAB PO SCH ×2 (10:07→21:32)
[2022-09-22] MEDS: MULTIVITAMINS, THERA 1 EACH TAB PO SCH (10:07)
[2022-09-22] MEDS: ASPIRIN 81 MG PO SCH (10:08)
[2022-09-22] MEDS: FERROUS SULFATE 325 MG TAB PO SCH (10:08)
[2022-09-22] MEDS: PANTOPRAZOLE 40 MG/10 ML VIAL IVP SCH (10:08)
[2022-09-22] MEDS: POTASSIUM CHLORIDE ER 20 MEQ TAB.ER PO SCH (10:21)
--- NOTE | 2022-09-22 14:19 | P.PN ---
Subjective Progress Note Date: 09/22/22 Patient is a 87-year-old female with a past medical history significant for COPD dementia GERD heart failure history of metastatic breast cancer and recurrent UTIs who was sent to the ER from adult foster care for worsening shortness of breath and wheezing , patient did have a abnormal UA as well as CT abdominal pelvis with concern for stool retention distention of the rectum and possible pneumatosis. 09/21. Dr. Deena alfaro from Dr. Zhong Patient seen and examined. States she feels much better. Denies any shortness of breath. 09/22. Patient seen and examined. Vital signs this morning are temperature 98.6, heart rate 77, respirations 17, blood pressure 133/76 REVIEW OF SYSTEMS: CONSTITUTIONAL: No fever, no malaise,. CARDIOVASCULAR: No chest pain, no palpitations, no syncope. PULMONARY: No shortness of breath, no cough, GASTROINTESTINAL: No diarrhea, no nausea, no vomiting, no abdominal pain. NEUROLOGICAL: No headaches, no weakness, PHYSICAL EXAMINATION: GENERAL: The patient is alert, not in any acute distress. Well developed, well nourished. HEENT: Pupils are round and equally reacting to light. EOMI. No scleral icterus. No conjunctival pallor. Normocephalic, atraumatic. No pharyngeal erythema. No thyromegaly. CARDIOVASCULAR: S1 and S2 present. No murmurs, rubs, or gallops. PULMONARY: Chest is clear to auscultation, no wheezing or crackles. ABDOMEN: Soft, nontender, nondistended, normoactive bowel sounds. No palpable organomegaly. MUSCULOSKELETAL: No joint swelling or deformity. EXTREMITIES: No cyanosis, clubbing, or pedal edema. NEUROLOGICAL: Gross neurological examination did not reveal any focal deficits. SKIN: No rashes. Assessment and plan Aspiration pneumonia Proctitis UTI Fecal impaction improved Esophageal dilation GERD Hiatal hernia Monitor vital signs Monitor CBC Monitor CMP Follow-up and repeat UA Continue daptomycin and Zosyn Continue breathing treatments DC IV Solu-Medrol Continue rest of treatment for now Follow-up in ID recommendations Gen. surgery following the patient follow-up on PT and OT recommendations DVT prophylaxis: Objective - Vital Signs Vital signs: Vital Signs Temp 98.6 F 09/22/22 07:26 Pulse 83 09/22/22 07:47 Resp 17 09/22/22 07:26 BP 133/76 06/24/23 07:26 Pulse Ox 96 09/22/22 07:26 FiO2 21 09/21/22 08:57 Intake & Output 09/21/22 09/22/22 09/22/22 18:59 06:59 18:59 Intake Total 400 Output Total 0 Balance 400 Weight 50.349 kg Intake: Oral 400 Output: Urine 0 Other: Voiding Method Diaper Incontinent # Voids 2 2 - Labs CBC & Chem 7: 09/21/22 06:34 09/21/22 06:34 Labs: Abnormal Lab Results - Last 24 Hours (Table) 09/21/22 09/21/22 Range/Units 06:34 06:34 WBC 17.64 H (4.50-10.00) X 10*3/uL RBC 3.53 L (4.10-5.20) X 10*6/uL Hgb 9.8 L (12.0-15.0) d/dL Hct 31.7 L (37.2-46.3) % MCHC 30.9 L (32.0-37.0) d/dL RDW 16.8 H (11.5-14.5) % Lymphocytes # (Manual) 0.35 L (0.90-5.00) X 10*3/uL Eosinophils # (Manual) 0 L (0.04-0.35) X 10*3/uL Carbon Dioxide 20.0 L (21.6-31.8) mmol/L BUN/Creatinine Ratio 25.33 H (12.00-20.00) Ratio Glucose 161 H (70-110) mg/dL Calcium 8.4 L (8.7-10.3) mg/dL AST 12 L (13-35) U/L Total Protein 5.5 L (6.2-8.2) d/dL Albumin 3.0 L (3.8-4.9) d/dL Albumin/Globulin Ratio 1.20 L (1.60-3.17) Ratio
--- NOTE | 2022-09-22 16:53 | P.PN ---
Subjective Progress Note Date: 09/22/22 Patient has fecal retention. No active bowel movements. Denies abdominal pain. She is on liquid diet. Objective - Vital Signs Vital signs: Vital Signs Temp 98.1 F 09/22/22 13:20 Pulse 83 09/22/22 15:46 Resp 19 09/22/22 13:20 BP 128/66 09/22/22 13:20 Pulse Ox 98 09/22/22 13:20 FiO2 21 09/21/22 08:57 Intake & Output 09/21/22 09/22/22 09/22/22 18:59 06:59 18:59 Intake Total 400 Output Total 0 850 Balance 400 -850 Weight 50.349 kg Intake: Oral 400 Output: Urine 0 850 Other: Voiding Method Diaper Diaper Incontinent Incontinent External Catheter # Voids 2 2 - Labs CBC & Chem 7: 09/21/22 06:34 09/21/22 06:34
[2022-09-22] MEDS: DAPTOmycin 200 MG in SODIUM CHLORIDE 0.9% 50 ML IVPB SCH ×2 (19:01→19:03)
[2022-09-22] MEDS: DONEPEZIL 10 MG TAB PO SCH (21:32)
[2022-09-23] MEDS: PIPERACILLIN-TAZOBACTAM 3.375 GM in SODIUM CHLORIDE 0.9% 100 ML IVPB SCH ×3 (00:30→16:05)
[2022-09-23] MEDS: LACTATED RINGERS 1,000 ML IV SCH (05:00)
[2022-09-23] MEDS: LEVOTHYROXINE 50 MCG TAB PO SCH (05:38)
[2022-09-23] MEDS: IPRATROPIUM-ALBUTEROL 3 ML NEB INHALATION SCH ×4 (08:19→21:09)
[2022-09-23] MEDS: MULTIVITAMINS, THERA 1 EACH TAB PO SCH (09:18)
[2022-09-23] MEDS: ASPIRIN 81 MG PO SCH (09:18)
[2022-09-23] MEDS: LACTULOSE 20 GM/30 ML CUP PO SCH ×3 (09:18→21:29)
[2022-09-23] MEDS: MEMANTINE 5 MG TAB PO SCH ×2 (09:19→21:29)
[2022-09-23] MEDS: FERROUS SULFATE 325 MG TAB PO SCH (09:19)
[2022-09-23 09:22] LABS: HCT 33.4 % (37.2-46.3); HGB 10.2 d/dL (12.0-15.0); MCH 27.5 pg (27.0-32.0); MCHC 30.5 d/dL (32.0-37.0); Mean Platelet Volume 10.2 FL (9.5-12.2); NRBC Per 100 WBC 0 X 10*3/uL (0.00-0.01); Platelet Count 283 X 10*3/uL (140-440); RBC 3.71 X 10*6/uL (4.10-5.20); RDW 17.2 % (11.5-14.5); WBC 18.35 X 10*3/uL (4.50-10.00)
[2022-09-23] MEDS: atenoloL 25 MG TAB PO SCH (09:24)
[2022-09-23] MEDS: POTASSIUM CHLORIDE ER 20 MEQ TAB.ER PO SCH (09:25)
[2022-09-23 09:40] LABS: ALT 12 U/L (8-44); AST 11 U/L (13-35); Alkaline Phosphatase 47 U/L (41-126); BUN/Creat Ratio 20.43 Ratio (12.00-20.00); Blood Urea Nitrogen 14.3 mg/dL (9.0-27.0); Calcium 8.2 mg/dL (8.7-10.3); Carbon Dioxide 20.8 mmol/L (21.6-31.8); Chloride 107 mmol/L (96-109); Globulin 2.3 d/dL (1.6-3.3); Glucose 115 mg/dL (70-110); Potassium 3.4 mmol/L (3.5-5.5); Sodium 138 mmol/L (135-145); Total Bilirubin 0.3 mg/dL (0.3-1.2); Total Protein 5.3 d/dL (6.2-8.2)
[2022-09-23] MEDS: PANTOPRAZOLE 40 MG/10 ML VIAL IVP SCH (10:08)
[2022-09-23 10:16] LABS: Basophils # (M) 0 X 10*3/uL (0.00-0.10)
[2022-09-23 10:19] LABS: Anisocytosis (M) 2+; Elliptocytes 2+; Eosinophils # (M) 0.37 X 10*3/uL (0.04-0.35); Lymphocytes # (M) 1.28 X 10*3/uL (0.90-5.00); Metamyelocytes % 1 % (0-0); Myelocytes % 3 % (0-0); Neutrophils # (M) 14.68 X 10*3/uL (1.80-7.70); Neutrophils % (M) 80 %; Promyelocytes # (M) 0.18 k/uL (0); Promyelocytes % 1 %
--- NOTE | 2022-09-23 10:59 | P.PN ---
Subjective Progress Note Date: 09/21/22 Principal diagnosis: Possible aspiration pneumonitis and proctitis Patient is a 87-year-old female with a past medical history significant for COPD dementia GERD heart failure history of metastatic breast cancer and recurrent UTIs who was sent to the ER from adult foster care for worsening shortness of breath and wheezing , patient did have a abnormal UA as well as CT abdominal pelvis with concern for stool retention distention of the rectum and possible pneumatosis. On today's evaluation that is 09/21/2022, the patient remains to be afebrile, the patient remains to be pleasantly confused denies any chest pain shortness of breath or cough no abdominal pain or diarrhea Objective - Vital Signs Vital signs: Vital Signs Temp 98.2 F 09/21/22 07:22 Pulse 78 09/21/22 11:56 Resp 16 09/21/22 08:00 BP 161/83 09/21/22 07:22 Pulse Ox 98 09/21/22 08:57 FiO2 21 09/21/22 08:57 Intake & Output 09/20/22 09/21/22 09/21/22 18:59 06:59 18:59 Intake Total 1000 200 Output Total 0 Balance 1000 200 Weight 50.349 kg Intake: IV 50 Oral 950 200 Output: Urine 0 Other: Voiding Method Diaper Diaper Incontinent Incontinent # Voids 2 2 2 - Exam GENERAL DESCRIPTION: An elderly female lying in bed in no distress RESPIRATORY SYSTEM: Unlabored breathing , decreased breath sounds at bases HEART: S1 S2 regular rate and rhythm , ABDOMEN: Soft , no tenderness EXTREMITIES: No edema feet - Labs CBC & Chem 7: 09/23/22 05:22 09/23/22 05:22 Labs: Abnormal Lab Results - Last 24 Hours (Table) 09/20/22 09/21/22 09/21/22 Range/Units 07:15 06:34 06:34 WBC 17.64 H (4.50-10.00) X 10*3/uL RBC 3.53 L (4.10-5.20) X 10*6/uL Hgb 9.8 L (12.0-15.0) d/dL Hct 31.7 L (37.2-46.3) % MCHC 30.9 L (32.0-37.0) d/dL RDW 16.8 H (11.5-14.5) % Eosinophils # (Manual) 0 L (0.04-0.35) X 10*3/uL Carbon Dioxide 20.0 L (21.6-31.8) mmol/L BUN/Creatinine Ratio 25.33 H (12.00-20.00) Ratio Glucose 161 H (70-110) mg/dL Calcium 8.4 L (8.7-10.3) mg/dL AST 12 L (13-35) U/L Total Protein 5.5 L (6.2-8.2) d/dL Albumin 3.0 L (3.8-4.9) d/dL Albumin/Globulin Ratio 1.20 L (1.60-3.17) Ratio Assessment and Plan (1) Aspiration pneumonia Current Visit: Yes Status: Acute Code(s): J69.0 - PNEUMONITIS DUE TO INHALATION OF FOOD AND VOMIT SNOMED Code(s): 401729054 (2) Proctitis Current Visit: Yes Status: Acute Code(s): K62.89 - OTHER SPECIFIED DISEASES OF ANUS AND RECTUM SNOMED Code(s): 5567787 (3) UTI (urinary tract infection) Current Visit: Yes Status: Acute Code(s): N39.0 - URINARY TRACT INFECTION, SITE NOT SPECIFIED SNOMED Code(s): 22357069 Plan: 1patient present to hospital with shortness of breath and cough in this patient noticed to have significant abnormality on the CT chest abdominal pelvis with concern for fecal impaction and rectal pneumatosis also have a dilated esophagus and concern for possible aspiration pneumonitis, patient also have a positive UA and a component of urine tract infection not entirely excluded 2-patient has cefuroxime allergies that would limit the number of antibiotics safe to use 3Patient seemed to have shown clinical improvement on Unasyn to continue that should cover the rectal pneumatosis, however urine culture now growing VRE and a Pseudomonas the question of possible contamination versus pathogen 4- repeat UA mildly positive patient did have elevated white count, we will continue the patient on daptomycin and Zosyn while waiting for repeat UA to finalize Time with Patient: Less than 30
--- NOTE | 2022-09-23 11:00 | P.PN ---
Subjective Progress Note Date: 09/22/22 Principal diagnosis: Possible aspiration pneumonitis and proctitis Patient is a 87-year-old female with a past medical history significant for COPD dementia GERD heart failure history of metastatic breast cancer and recurrent UTIs who was sent to the ER from adult foster care for worsening shortness of breath and wheezing , patient did have a abnormal UA as well as CT abdominal pelvis with concern for stool retention distention of the rectum and possible pneumatosis. On today's evaluation that is 09/22/2022 the patient remains to be afebrile, patient is breathing comfortably on room air the patient remains to be pleasantly confused no vomiting diarrhea or any other changes reported by the nursing staff Objective - Vital Signs Vital signs: Vital Signs Temp 98.6 F 09/22/22 07:26 Pulse 82 09/22/22 11:53 Resp 17 09/22/22 07:26 BP 133/76 09/22/22 07:26 Pulse Ox 96 09/22/22 07:26 FiO2 21 09/21/22 08:57 Intake & Output 09/21/22 09/22/22 09/22/22 18:59 06:59 18:59 Intake Total 400 Output Total 0 Balance 400 Weight 50.349 kg Intake: Oral 400 Output: Urine 0 Other: Voiding Method Diaper Incontinent # Voids 2 2 - Exam GENERAL DESCRIPTION: An elderly female lying in bed in no distress RESPIRATORY SYSTEM: Unlabored breathing , decreased breath sounds at bases HEART: S1 S2 regular rate and rhythm , ABDOMEN: Soft , no tenderness EXTREMITIES: No edema feet - Labs CBC & Chem 7: 09/23/22 05:22 09/23/22 05:22 Assessment and Plan (1) Aspiration pneumonia Current Visit: Yes Status: Acute Code(s): J69.0 - PNEUMONITIS DUE TO INHALATION OF FOOD AND VOMIT SNOMED Code(s): 690436441 (2) Proctitis Current Visit: Yes Status: Acute Code(s): K62.89 - OTHER SPECIFIED DISEASES OF ANUS AND RECTUM SNOMED Code(s): 5800864 (3) UTI (urinary tract infection) Current Visit: Yes Status: Acute Code(s): N39.0 - URINARY TRACT INFECTION, SITE NOT SPECIFIED SNOMED Code(s): 89446031 Plan: 1patient present to hospital with shortness of breath and cough in this patient noticed to have significant abnormality on the CT chest abdominal pelvis with concern for fecal impaction and rectal pneumatosis also have a dilated esophagus and concern for possible aspiration pneumonitis, patient also have a positive UA and a component of urine tract infection not entirely excluded 2-patient has cefuroxime allergies that would limit the number of antibiotics safe to use 3Patient seemed to have shown clinical improvement on Unasyn to continue that should cover the rectal pneumatosis, however urine culture now growing VRE and a Pseudomonas the question of possible contamination versus pathogen 4- repeat UA mildly positive patient did have elevated white count, , Urinalysis shows yeast we will add Diflucan to the current antibiotic regime and see clinic response and monitor clinical course closely Time with Patient: Less than 30
[2022-09-23] MEDS: FLUCONAZOLE 100 MG TAB PO SCH (13:35)
--- NOTE | 2022-09-23 14:22 | P.PN ---
Subjective Progress Note Date: 09/23/22 Patient is a 87-year-old female with a past medical history significant for COPD dementia GERD heart failure history of metastatic breast cancer and recurrent UTIs who was sent to the ER from adult foster care for worsening shortness of breath and wheezing , patient did have a abnormal UA as well as CT abdominal pelvis with concern for stool retention distention of the rectum and possible pneumatosis. 09/21. Dr. Deena alfaro from Dr. Zhong Patient seen and examined. States she feels much better. Denies any shortness of breath. 09/22. Patient seen and examined. Vital signs this morning are temperature 98.6, heart rate 77, respirations 17, blood pressure 133/76 09/23. Patient seen and examined. WBC 18.35, hemoglobin 10.2, platelet count 283. Temperature 98.6, heart rate 81, respirations 16, blood pressure 144/68. Laying comfortably in the bed. No acute issues overnight REVIEW OF SYSTEMS: CONSTITUTIONAL: No fever, no malaise,. CARDIOVASCULAR: No chest pain, no palpitations, no syncope. PULMONARY: No shortness of breath, no cough, GASTROINTESTINAL: No diarrhea, no nausea, no vomiting, no abdominal pain. NEUROLOGICAL: No headaches, no weakness, PHYSICAL EXAMINATION: GENERAL: The patient is alert, not in any acute distress. Well developed, well nourished. HEENT: Pupils are round and equally reacting to light. EOMI. No scleral icterus. No conjunctival pallor. Normocephalic, atraumatic. No pharyngeal erythema. No thyromegaly. CARDIOVASCULAR: S1 and S2 present. No murmurs, rubs, or gallops. PULMONARY: Chest is clear to auscultation, no wheezing or crackles. ABDOMEN: Soft, nontender, nondistended, normoactive bowel sounds. No palpable organomegaly. MUSCULOSKELETAL: No joint swelling or deformity. EXTREMITIES: No cyanosis, clubbing, or pedal edema. NEUROLOGICAL: Gross neurological examination did not reveal any focal deficits. SKIN: No rashes. Assessment and plan Aspiration pneumonia Proctitis UTI Fecal impaction improved Esophageal dilation GERD Hiatal hernia Monitor vital signs Monitor CBC Monitor CMP Continue IV Zosyn and daptomycin Continue breathing treatments Continue rest of treatment for now Follow-up in ID recommendations Gen. surgery following the patient follow-up on PT and OT recommendations DVT prophylaxis: Objective - Vital Signs Vital signs: Vital Signs Temp 98.6 F 09/23/22 07:40 Pulse 80 09/23/22 08:30 Resp 16 09/23/22 08:30 BP 144/68 09/23/22 07:40 Pulse Ox 95 09/23/22 08:19 FiO2 21 09/21/22 08:57 Intake & Output 09/22/22 09/23/22 09/23/22 18:59 06:59 18:59 Intake Total 100 Output Total 1300 630 Balance -1200 -630 Intake: Intake, IV Titration 100 Amount Piperacillin-Tazobactam 3 100 .375 gm In Sodium Chloride 0.9% 100 ml @ 25 mls/hr IVPB Q8HR [facility] Rx# :[id number] Output: Urine 1300 630 Other: Voiding Method Diaper Diaper Incontinent External Catheter - Labs CBC & Chem 7: 09/23/22 05:22 09/23/22 05:22 Labs: Abnormal Lab Results - Last 24 Hours (Table) 09/23/22 Range/Units 05:22 WBC 18.35 H (4.50-10.00) X 10*3/uL RBC 3.71 L (4.10-5.20) X 10*6/uL Hgb 10.2 L (12.0-15.0) d/dL Hct 33.4 L (37.2-46.3) % MCHC 30.5 L (32.0-37.0) d/dL RDW 17.2 H (11.5-14.5) % Microbiology - Last 24 Hours (Table) 09/21/22 06:34 Blood Culture - Preliminary Blood
[2022-09-23] MEDS: DONEPEZIL 10 MG TAB PO SCH (21:29)
--- NOTE | 2022-09-23 22:39 | P.PN ---
Subjective Progress Note Date: 09/23/22 Principal diagnosis: Noting issues. Denies abdominal pain. Tolerating liquid diet. Objective - Vital Signs Vital signs: Vital Signs Temp 98.2 F 09/23/22 20:00 Pulse 72 09/23/22 21:18 Resp 16 09/23/22 21:38 BP 109/56 09/23/22 20:00 Pulse Ox 98 09/23/22 20:00 FiO2 21 09/21/22 08:57 Intake & Output 09/23/22 09/23/22 09/24/22 06:59 18:59 06:59 Intake Total 220 Output Total 630 900 Balance -511 -010 Intake: Intake, IV Titration 220 Amount IV Fluid Continuation 1, 120 000 ml @ 0 mls/hr IV .STK -[facility] Rx#:[id number] Piperacillin-Tazobactam 3 100 .375 gm In Sodium Chloride 0.9% 100 ml @ 25 mls/hr IVPB Q8HR [facility] Rx# :[id number] Output: Urine 630 900 Other: Voiding Method Diaper External Catheter External Catheter # Voids 2 - Labs CBC & Chem 7: 09/23/22 05:22 09/23/22 05:22 Labs: Abnormal Lab Results - Last 24 Hours (Table) 09/23/22 09/23/22 Range/Units 05:22 05:22 WBC 18.35 H (4.50-10.00) X 10*3/uL RBC 3.71 L (4.10-5.20) X 10*6/uL Hgb 10.2 L (12.0-15.0) d/dL Hct 33.4 L (37.2-46.3) % MCHC 30.5 L (32.0-37.0) d/dL RDW 17.2 H (11.5-14.5) % Monocytes # (Manual) 1.10 H (0.20-1.00) X 10*3/uL Eosinophils # (Manual) 0.37 H (0.04-0.35) X 10*3/uL Anisocytosis (manual) 2+ A Elliptocytes 2+ A Potassium 3.4 L (3.5-5.5) mmol/L Carbon Dioxide 20.8 L (21.6-31.8) mmol/L BUN/Creatinine Ratio 20.43 H (12.00-20.00) Ratio Glucose 115 H (70-110) mg/dL Calcium 8.2 L (8.7-10.3) mg/dL AST 11 L (13-35) U/L Total Protein 5.3 L (6.2-8.2) d/dL Albumin 3.0 L (3.8-4.9) d/dL Albumin/Globulin Ratio 1.30 L (1.60-3.17) Ratio Microbiology - Last 24 Hours (Table) 09/21/22 06:34 Blood Culture - Preliminary Blood
[2022-09-24] MEDS: LACTATED RINGERS 1,000 ML IV SCH ×2 (00:27→22:39)
[2022-09-24] MEDS: PIPERACILLIN-TAZOBACTAM 3.375 GM in SODIUM CHLORIDE 0.9% 100 ML IVPB SCH ×4 (00:28→23:31)
[2022-09-24] MEDS: PANTOPRAZOLE 40 MG/10 ML VIAL IVP SCH (09:28)
[2022-09-24] MEDS: POTASSIUM CHLORIDE ER 20 MEQ TAB.ER PO SCH (09:28)
[2022-09-24] MEDS: LACTULOSE 20 GM/30 ML CUP PO SCH ×3 (09:28→21:54)
[2022-09-24] MEDS: LEVOTHYROXINE 50 MCG TAB PO SCH (09:29)
[2022-09-24] MEDS: atenoloL 25 MG TAB PO SCH (09:29)
[2022-09-24] MEDS: FERROUS SULFATE 325 MG TAB PO SCH (09:29)
[2022-09-24] MEDS: FLUCONAZOLE 100 MG TAB PO SCH (09:29)
[2022-09-24] MEDS: MEMANTINE 5 MG TAB PO SCH ×2 (09:29→21:54)
[2022-09-24] MEDS: MULTIVITAMINS, THERA 1 EACH TAB PO SCH (09:29)
[2022-09-24] MEDS: ASPIRIN 81 MG PO SCH (09:29)
[2022-09-24] MEDS: IPRATROPIUM-ALBUTEROL 3 ML NEB INHALATION SCH ×4 (09:40→20:53)
--- NOTE | 2022-09-24 16:11 | P.PN ---
Subjective Progress Note Date: 09/24/22 CHIEF COMPLAINT: Hiatal hernia HISTORY OF PRESENT ILLNESS: Patient status post EGD with results showing hiatal hernia and GERD. Patient sitting at bedside chair. No new complaints. She is tolerating diet. Aspiration precautions in place. Patient seen and examined with Dr. baeza PHYSICAL EXAM: VITAL SIGNS: Reviewed. GENERAL: Well-developed in no acute distress. ABDOMEN: Soft. Nondistended. Nontender. ASSESSMENT: 1. Fecal impaction improved 2. Proctitis 3. Esophageal dilation 4. GERD 5. Hiatal hernia 6. Possible aspiration pneumonitis PLAN: -No surgical intervention planned -Continue dysphagia chopped diet -Continue to follow aspiration precautions -Continue PPI -Antibiotics per ID service Physician Student Counsellor note has been reviewed by physician. Signing provider agrees with the documented findings, assessment, and plan of care. Objective - Vital Signs Vital signs: Vital Signs Temp 98.4 F 09/24/22 14:00 Pulse 89 09/24/22 14:00 Resp 16 09/24/22 14:00 BP 92/63 09/24/22 14:00 Pulse Ox 95 09/24/22 14:00 FiO2 21 09/24/22 09:41 Intake & Output 09/23/22 09/24/22 09/24/22 18:59 06:59 18:59 Intake Total 220 Output Total 900 Balance -680 Intake: Intake, IV Titration 220 Amount IV Fluid Continuation 1, 120 000 ml @ 0 mls/hr IV .STK [facility] Rx#:[id number] Piperacillin-Tazobactam 3 100 .375 gm In Sodium Chloride 0.9% 100 ml @ 25 mls/hr IVPB Q8HR [facility] Rx# :[id number] Output: Urine 900 Other: Voiding Method External Catheter External Catheter External Catheter # Voids 2 1 - Labs CBC & Chem 7: 09/23/22 05:22 09/23/22 05:22 Labs: Abnormal Lab Results - Last 24 Hours (Table) 09/20/22 09/21/22 09/23/22 Range/Units 07:15 06:34 05:22 Neutrophils # (Manual) 14.94 H 16.23 H 14.68 H (1.80-7.70) X 10*3/uL Microbiology - Last 24 Hours (Table) 09/21/22 06:34 Blood Culture - Preliminary Blood
[2022-09-24] MEDS: DAPTOmycin 200 MG in SODIUM CHLORIDE 0.9% 50 ML IVPB SCH (17:29)
--- NOTE | 2022-09-24 21:42 | P.PN ---
Subjective Progress Note Date: 09/23/22 Principal diagnosis: Possible aspiration pneumonitis and proctitis Patient is a 87-year-old female with a past medical history significant for COPD dementia GERD heart failure history of metastatic breast cancer and recurrent UTIs who was sent to the ER from adult foster care for worsening shortness of breath and wheezing , patient did have a abnormal UA as well as CT abdominal pelvis with concern for stool retention distention of the rectum and possible pneumatosis. On today's evaluation that is 09/23/2022 the patient continues to be afebrile, patient is breathing comfortably on room air the patient denies any chest pain shortness of breath or cough, no vomiting diarrhea or any other changes reported by the nursing staff Objective - Vital Signs Vital signs: Vital Signs Temp 98.1 F 09/23/22 14:00 Pulse 77 09/23/22 15:20 Resp 16 09/23/22 15:20 BP 113/66 09/23/22 14:00 Pulse Ox 96 09/23/22 14:00 FiO2 21 09/21/22 08:57 Intake & Output 09/22/22 09/23/22 09/23/22 18:59 06:59 18:59 Intake Total 100 Output Total 1300 630 Balance -1200 -630 Intake: Intake, IV Titration 100 Amount Piperacillin-Tazobactam 3 100 .375 gm In Sodium Chloride 0.9% 100 ml @ 25 mls/hr IVPB Q8HR [facility] Rx# :[id number] Output: Urine 1300 630 Other: Voiding Method Diaper Diaper External Catheter Incontinent External Catheter - Exam GENERAL DESCRIPTION: An elderly female lying in bed in no distress RESPIRATORY SYSTEM: Unlabored breathing , decreased breath sounds at bases HEART: S1 S2 regular rate and rhythm , ABDOMEN: Soft , no tenderness EXTREMITIES: No edema feet - Labs CBC & Chem 7: 09/23/22 05:22 09/23/22 05:22 Labs: Abnormal Lab Results - Last 24 Hours (Table) 09/23/22 09/23/22 Range/Units 05:22 05:22 WBC 18.35 H (4.50-10.00) X 10*3/uL RBC 3.71 L (4.10-5.20) X 10*6/uL Hgb 10.2 L (12.0-15.0) d/dL Hct 33.4 L (37.2-46.3) % MCHC 30.5 L (32.0-37.0) d/dL RDW 17.2 H (11.5-14.5) % Monocytes # (Manual) 1.10 H (0.20-1.00) X 10*3/uL Eosinophils # (Manual) 0.37 H (0.04-0.35) X 10*3/uL Anisocytosis (manual) 2+ A Elliptocytes 2+ A Potassium 3.4 L (3.5-5.5) mmol/L Carbon Dioxide 20.8 L (21.6-31.8) mmol/L BUN/Creatinine Ratio 20.43 H (12.00-20.00) Ratio Glucose 115 H (70-110) mg/dL Calcium 8.2 L (8.7-10.3) mg/dL AST 11 L (13-35) U/L Total Protein 5.3 L (6.2-8.2) d/dL Albumin 3.0 L (3.8-4.9) d/dL Albumin/Globulin Ratio 1.30 L (1.60-3.17) Ratio Microbiology - Last 24 Hours (Table) 09/21/22 06:34 Blood Culture - Preliminary Blood Assessment and Plan (1) Aspiration pneumonia Current Visit: Yes Status: Acute Code(s): J69.0 - PNEUMONITIS DUE TO INHALATION OF FOOD AND VOMIT SNOMED Code(s): 342986221 (2) Proctitis Current Visit: Yes Status: Acute Code(s): K62.89 - OTHER SPECIFIED DISEASES OF ANUS AND RECTUM SNOMED Code(s): 5236391 (3) UTI (urinary tract infection) Current Visit: Yes Status: Acute Code(s): N39.0 - URINARY TRACT INFECTION, SITE NOT SPECIFIED SNOMED Code(s): 84669339 Plan: 1patient present to hospital with shortness of breath and cough in this patient noticed to have significant abnormality on the CT chest abdominal pelvis with concern for fecal impaction and rectal pneumatosis also have a dilated esophagus and concern for possible aspiration pneumonitis, patient also have a positive UA and a component of urine tract infection not entirely excluded 2-patient has cefuroxime allergies that would limit the number of antibiotics safe to use 3Patient seemed to have shown clinical improvement on Unasyn to continue that should cover the rectal pneumatosis, however urine culture now growing VRE and a Pseudomonas the question of possible contamination versus pathogen 4- repeat UA mildly positive patient did have elevated white count, , Urinalysis shows yeast, patient to continue with Diflucan and Zosyn and monitor clinical course closely
--- NOTE | 2022-09-24 21:43 | P.PN ---
Subjective Progress Note Date: 09/24/22 Principal diagnosis: Possible aspiration pneumonitis and proctitis Patient is a 87-year-old female with a past medical history significant for COPD dementia GERD heart failure history of metastatic breast cancer and recurrent UTIs who was sent to the ER from adult foster care for worsening shortness of breath and wheezing , patient did have a abnormal UA as well as CT abdominal pelvis with concern for stool retention distention of the rectum and possible pneumatosis. On today's evaluation that is 09/24/2022 the patient remains to be afebrile, patient is breathing comfortably on room air the patient denies chest pain shortness of breath or cough, no vomiting and no abdominal pain Objective - Vital Signs Vital signs: Vital Signs Temp 98.2 F 09/24/22 07:54 Pulse 74 09/24/22 09:41 Resp 16 09/24/22 07:54 BP 110/69 09/24/22 07:54 Pulse Ox 97 09/24/22 09:41 FiO2 21 09/24/22 09:41 Intake & Output 09/23/22 09/24/22 09/24/22 18:59 06:59 18:59 Intake Total 220 Output Total 900 Balance -680 Intake: Intake, IV Titration 220 Amount IV Fluid Continuation 1, 120 000 ml @ 0 mls/hr IV .[facility] Rx#:[id number] Piperacillin-Tazobactam 3 100 .375 gm In Sodium Chloride 0.9% 100 ml @ 25 mls/hr IVPB Q8HR [facility] Rx# :[id number] Output: Urine 900 Other: Voiding Method External Catheter External Catheter External Catheter # Voids 2 1 - Exam GENERAL DESCRIPTION: An elderly female lying in bed in no distress RESPIRATORY SYSTEM: Unlabored breathing , decreased breath sounds at bases HEART: S1 S2 regular rate and rhythm , ABDOMEN: Soft , no tenderness EXTREMITIES: No edema feet - Labs CBC & Chem 7: 09/23/22 05:22 09/23/22 05:22 Labs: Abnormal Lab Results - Last 24 Hours (Table) 09/20/22 09/21/22 09/23/22 Range/Units 07:15 06:34 05:22 Neutrophils # (Manual) 14.94 H 16.23 H 14.68 H (1.80-7.70) X 10*3/uL Microbiology - Last 24 Hours (Table) 09/21/22 06:34 Blood Culture - Preliminary Blood Assessment and Plan (1) Aspiration pneumonia Current Visit: Yes Status: Acute Code(s): J69.0 - PNEUMONITIS DUE TO INHALATION OF FOOD AND VOMIT SNOMED Code(s): 390998677 (2) Proctitis Current Visit: Yes Status: Acute Code(s): K62.89 - OTHER SPECIFIED DISEASES OF ANUS AND RECTUM SNOMED Code(s): 5205345 (3) UTI (urinary tract infection) Current Visit: Yes Status: Acute Code(s): N39.0 - URINARY TRACT INFECTION, SITE NOT SPECIFIED SNOMED Code(s): 37309244 Plan: 1patient present to hospital with shortness of breath and cough in this patient noticed to have significant abnormality on the CT chest abdominal pelvis with concern for fecal impaction and rectal pneumatosis also have a dilated esophagus and concern for possible aspiration pneumonitis, patient also have a positive UA and a component of urine tract infection not entirely excluded 2-patient has cefuroxime allergies that would limit the number of antibiotics safe to use 3Patient seemed to have shown clinical improvement on Unasyn to continue that should cover the rectal pneumatosis, however urine culture now growing VRE and a Pseudomonas the question of possible contamination versus pathogen 4- repeat UA mildly positive patient did have elevated white count, , Urinalysis shows yeast, patient to continue with Diflucan and Zosyn we will repeat her CBC and inflammatory markers with the MA Time with Patient: Less than 30
[2022-09-24] MEDS: DONEPEZIL 10 MG TAB PO SCH (21:54)
[2022-09-25] MEDS: LEVOTHYROXINE 50 MCG TAB PO SCH (05:51)
[2022-09-25] MEDS: FERROUS SULFATE 325 MG TAB PO SCH (07:48)
[2022-09-25] MEDS: MULTIVITAMINS, THERA 1 EACH TAB PO SCH (07:48)
[2022-09-25] MEDS: LACTULOSE 20 GM/30 ML CUP PO SCH ×3 (07:48→22:00)
[2022-09-25] MEDS: FLUCONAZOLE 100 MG TAB PO SCH (07:48)
[2022-09-25] MEDS: PANTOPRAZOLE 40 MG/10 ML VIAL IVP SCH (07:48)
[2022-09-25] MEDS: POTASSIUM CHLORIDE ER 20 MEQ TAB.ER PO SCH (07:49)
[2022-09-25] MEDS: atenoloL 25 MG TAB PO SCH (07:49)
[2022-09-25] MEDS: MEMANTINE 5 MG TAB PO SCH ×2 (07:49→22:00)
[2022-09-25] MEDS: ASPIRIN 81 MG PO SCH (07:49)
[2022-09-25] MEDS: PIPERACILLIN-TAZOBACTAM 3.375 GM in SODIUM CHLORIDE 0.9% 100 ML IVPB SCH ×2 (07:53→17:52)
[2022-09-25] MEDS: IPRATROPIUM-ALBUTEROL 3 ML NEB INHALATION SCH ×4 (08:09→21:24)
[2022-09-25 11:00] LABS: HCT 33.6 % (37.2-46.3); HGB 10.5 d/dL (12.0-15.0); MCH 28.7 pg (27.0-32.0); MCHC 31.3 d/dL (32.0-37.0); MCV 91.8 FL (80.0-97.0); Mean Platelet Volume 10.5 FL (9.5-12.2); NRBC Per 100 WBC 0 X 10*3/uL (0.00-0.01); Platelet Count 263 X 10*3/uL (140-440); RBC 3.66 X 10*6/uL (4.10-5.20); RDW 17.7 % (11.5-14.5); WBC 14.55 X 10*3/uL (4.50-10.00)
--- NOTE | 2022-09-25 11:33 | P.PN ---
Subjective Progress Note Date: 09/25/22 CHIEF COMPLAINT: Hiatal hernia HISTORY OF PRESENT ILLNESS: Patient status post EGD with results showing hiatal hernia and GERD. Patient has no new complaints. She is tolerating diet. Aspiration precautions in place. Patient seen and examined with Dr. baeza PHYSICAL EXAM: VITAL SIGNS: Reviewed. GENERAL: Well-developed in no acute distress. ABDOMEN: Soft. Nondistended. Nontender. ASSESSMENT: 1. Hiatal Hernia 2. GERD 3. Proctitis 4. Fecal impaction resolved 5. Possible aspiration pneumonitis PLAN: -No surgical intervention planned -Continue dysphagia chopped diet -Continue to follow aspiration precautions -Continue PPI -Antibiotics per ID service Physician Bioinformatics Specialist note has been reviewed by physician. Signing provider agrees with the documented findings, assessment, and plan of care. Objective - Vital Signs Vital signs: Vital Signs Temp 98.2 F 09/25/22 07:00 Pulse 70 09/25/22 08:23 Resp 16 09/25/22 07:00 BP 113/63 09/25/22 07:00 Pulse Ox 98 09/25/22 08:10 FiO2 21 09/25/22 08:10 Intake & Output 09/24/22 09/25/22 09/25/22 18:59 06:59 18:59 Output Total 375 200 Balance -375 -200 Output: Urine 375 200 Other: Voiding Method External Catheter External Catheter # Bowel Movements 1 - Labs CBC & Chem 7: 09/25/22 05:28 09/23/22 05:22 Labs: Abnormal Lab Results - Last 24 Hours (Table) 09/20/22 09/21/22 09/23/22 Range/Units 07:15 06:34 05:22 Neutrophils # (Manual) 14.94 H 16.23 H 14.68 H (1.80-7.70) X 10*3/uL Microbiology - Last 24 Hours (Table) 09/21/22 06:34 Blood Culture - Preliminary Blood
[2022-09-25 11:34] LABS: Neutrophils % (M) 80 %
[2022-09-25 11:58] LABS: C Reactive Protein <0.30 mg/dL (0.00-0.80)
[2022-09-25 12:00] LABS: ALT 10 U/L (8-44); AST 20 U/L (13-35); Albumin 2.8 d/dL (3.8-4.9); Albumin/Globulin Ratio 1.27 Ratio (1.60-3.17); Alkaline Phosphatase 51 U/L (41-126); BUN/Creat Ratio 18.83 Ratio (12.00-20.00); Blood Urea Nitrogen 11.3 mg/dL (9.0-27.0); Calcium 8.1 mg/dL (8.7-10.3); Chloride 111 mmol/L (96-109); Globulin 2.2 d/dL (1.6-3.3); Glucose 94 mg/dL (70-110); Potassium 3.8 mmol/L (3.5-5.5); Sodium 141 mmol/L (135-145); Total Bilirubin 0.4 mg/dL (0.3-1.2)
[2022-09-25 12:27] LABS: Basophils # (M) 0.15 X 10*3/uL (0.00-0.10); Elliptocytes 2+; Eosinophils # (M) 0.58 X 10*3/uL (0.04-0.35); Lymphocytes # (M) 0.87 X 10*3/uL (0.90-5.00); Metamyelocytes % 2 % (0-0); Monocytes # (M) 0.73 X 10*3/uL (0.20-1.00); Myelocytes % 2 % (0-0); Neutrophils # (M) 11.64 X 10*3/uL (1.80-7.70)
--- NOTE | 2022-09-25 12:35 | P.PN ---
Subjective Progress Note Date: 09/25/22 Principal diagnosis: Possible aspiration pneumonitis and proctitis Patient is a 87-year-old female with a past medical history significant for COPD dementia GERD heart failure history of metastatic breast cancer and recurrent UTIs who was sent to the ER from adult foster care for worsening shortness of breath and wheezing , patient did have a abnormal UA as well as CT abdominal pelvis with concern for stool retention distention of the rectum and possible pneumatosis. On today's evaluation that is 09/25/2022 the patient continues to be afebrile, patient is breathing comfortably on room air the patient denies chest pain shortness of breath or cough, no vomiting and no abdominal pain, no diarrhea reported Objective - Vital Signs Vital signs: Vital Signs Temp 98.2 F 09/25/22 07:00 Pulse 68 09/25/22 11:59 Resp 16 09/25/22 07:00 BP 113/63 09/25/22 07:00 Pulse Ox 98 09/25/22 08:10 FiO2 21 09/25/22 08:10 Intake & Output 09/24/22 09/25/22 09/25/22 18:59 06:59 18:59 Output Total 375 200 Balance -375 -200 Output: Urine 375 200 Other: Voiding Method External Catheter External Catheter External Catheter # Bowel Movements 1 - Exam GENERAL DESCRIPTION: An elderly female lying in bed in no distress RESPIRATORY SYSTEM: Unlabored breathing , decreased breath sounds at bases HEART: S1 S2 regular rate and rhythm , ABDOMEN: Soft , no tenderness EXTREMITIES: No edema feet - Labs CBC & Chem 7: 09/25/22 05:28 09/25/22 05:28 Labs: Abnormal Lab Results - Last 24 Hours (Table) 09/25/22 09/25/22 Range/Units 05:28 05:28 WBC 14.55 H (4.50-10.00) X 10*3/uL RBC 3.66 L (4.10-5.20) X 10*6/uL Hgb 10.5 L (12.0-15.0) d/dL Hct 33.6 L (37.2-46.3) % MCHC 31.3 L (32.0-37.0) d/dL RDW 17.7 H (11.5-14.5) % Lymphocytes # (Manual) 0.87 L (0.90-5.00) X 10*3/uL Eosinophils # (Manual) 0.58 H (0.04-0.35) X 10*3/uL Basophils # (Manual) 0.15 H (0.00-0.10) X 10*3/uL Elliptocytes 2+ A Chloride 111 H (96-109) mmol/L Carbon Dioxide 21.0 L (21.6-31.8) mmol/L Calcium 8.1 L (8.7-10.3) mg/dL Total Protein 5.0 L (6.2-8.2) d/dL Albumin 2.8 L (3.8-4.9) d/dL Albumin/Globulin Ratio 1.27 L (1.60-3.17) Ratio Microbiology - Last 24 Hours (Table) 09/21/22 06:34 Blood Culture - Preliminary Blood Assessment and Plan (1) Aspiration pneumonia Current Visit: Yes Status: Acute Code(s): J69.0 - PNEUMONITIS DUE TO INHALATION OF FOOD AND VOMIT SNOMED Code(s): 474261599 (2) Proctitis Current Visit: Yes Status: Acute Code(s): K62.89 - OTHER SPECIFIED DISEASES OF ANUS AND RECTUM SNOMED Code(s): 9302305 (3) UTI (urinary tract infection) Current Visit: Yes Status: Acute Code(s): N39.0 - URINARY TRACT INFECTION, SITE NOT SPECIFIED SNOMED Code(s): 16531229 Plan: 1patient present to hospital with shortness of breath and cough in this patient noticed to have significant abnormality on the CT chest abdominal pelvis with concern for fecal impaction and rectal pneumatosis also have a dilated esophagus and concern for possible aspiration pneumonitis, patient also have a positive UA and a component of urine tract infection not entirely excluded 2-patient has cefuroxime allergies that would limit the number of antibiotics safe to use 3Patient seemed to have shown clinical improvement on Unasyn to continue that should cover the rectal pneumatosis, however urine culture now growing VRE and a Pseudomonas the question of possible contamination versus pathogen 4-the patient white count is trending down is down to 14,000 today, patient to continue with Diflucan and Zosyn and plan finish therapy with oral Time with Patient: Less than 30
--- NOTE | 2022-09-25 13:35 | PN ---
PROGRESS NOTE SUBJECTIVE: This is an 87-year-old white female with COPD exacerbation. She has drug-resistant UTI with sepsis. Remains on broad-spectrum IV antibiotics. Waiting for Infectious Disease to get possibly a PICC line for home IV antibiotics. She had failed a swallow eval, but she is eating 50% of her meals with help. OBJECTIVE: GENERAL: She remains alert, giving appropriate answers. Pleasantly confused. CARDIOVASCULAR: S1, S2. ABDOMEN: Soft. LUNGS: Clear. HEMATOLOGY: Negative for Homans. ASSESSMENT: Protein-calorie malnutrition, failed swallow eval, COPD exacerbation, drug-resistant UTI. Continue current treatments. Memory loss, dementia, chronic, please see further orders. Wait for PICC line per Dr. Rivera's recommendations. MMODL / IJN: [id number] /
[2022-09-25] MEDS: DONEPEZIL 10 MG TAB PO SCH (22:00)
--- NOTE | 2022-09-25 22:00 | HP ---
HISTORY AND PHYSICAL HISTORY OF PRESENT ILLNESS: This is a white female, 87-year-old, with history of dementia and recurrent UTIs, drug- resistant, came to the hospital with a history of COPD with altered mental status, shortness of breath, wheezing, and harsh cough, possibly secondary to another drug- resistant UTI. Shortness of breath and cough are constant, worse over the last week. HOME MEDICATIONS: 1. Synthroid 50 mcg daily. 2. Multivitamin daily. 3. Omeprazole 40 mg daily. 4. Ecotrin 81 mg daily. 5. Ferrous sulfate 325 daily. 6. Tenormin 25 daily. ALLERGIES: Cefuroxime. REVIEW OF SYSTEMS: Fourteen-point review of systems is negative except for mentioned above, except for cough, dyspnea, and fever. GASTROINTESTINAL: Abdominal pain and vomiting are negative. NEUROLOGIC: Cranial nerves are intact. MUSCULOSKELETAL: She has right arm amputation. 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 PAST SURGICAL HISTORY: Breast surgery, orthopedic surgery, right mastectomy, right ankle fracture surgery, and cataract removal. PHYSICAL EXAMINATION: VITAL SIGNS: Temperature 98.3, pulse 100 to 120, respiratory rate 18 to 20, blood pressure is 100 to 130 over 60 to 70. GENERAL: She is pleasantly confused. Endocrine: She is cachectic. HEENT: Normocephalic and atraumatic. NECK: Supple. No mass. RESPIRATORY: Mild wheeze. Decreased breath sounds x4. HEART: S1 and S2. Some tachycardia up to 120. No murmurs, rubs, or gallops of significance. ABDOMEN: Soft and nontender except for lower abdominal pain. No guarding. No mass. EXTREMITIES: No cyanosis, clubbing, or edema. BACK: CVA tenderness on the right and left. Vertebral tenderness is positive. PSYCHIATRIC: She is alert and oriented x2. SKIN: Warm, dry, and intact. Mildly tachycardic. ASSESSMENT: Possible urosepsis, chronic obstructive pulmonary disease exacerbation, tracheobronchitis, dementia, hypothyroidism, and hypertension. PLAN: Home medications have been reordered. Broad-spectrum antibiotics. Urine cultures. IV steroids. Breathing treatments. Please see further orders. MMODL / IJN: [id number] /
--- NOTE | 2022-09-25 22:57 | PN ---
PROGRESS NOTE She is on broad-spectrum antibiotics. Her oral intake is improving. Dr. Rivera saw her today. She has drug-resistant UTI. She is alert and oriented, pleasantly confused. Heart S1, S2. GI, soft. Respiratory, decreased breath sounds. Extremities, no cyanosis, clubbing, edema. She had fecal impaction, rectal pneumatosis, dilated esophagus, status post EGD, concern for aspiration pneumonitis, positive UA, UTI drug- resistant. She has Pseudomonas and VRE in the urine and fecal pneumatosis. White count is improving to 14,000. Continue with Diflucan, Zosyn, finished with therapy with oral on discharge. Prognosis guarded. MMODL / IJN: [id number] /
[2022-09-26] MEDS: LACTATED RINGERS 1,000 ML IV SCH ×2 (00:41→20:17)
[2022-09-26] MEDS: PIPERACILLIN-TAZOBACTAM 3.375 GM in SODIUM CHLORIDE 0.9% 100 ML IVPB SCH ×3 (00:44→16:48)
[2022-09-26] MEDS: LEVOTHYROXINE 50 MCG TAB PO SCH (05:48)
[2022-09-26] MEDS: POTASSIUM CHLORIDE ER 20 MEQ TAB.ER PO SCH (08:49)
[2022-09-26] MEDS: MULTIVITAMINS, THERA 1 EACH TAB PO SCH (08:49)
[2022-09-26] MEDS: FERROUS SULFATE 325 MG TAB PO SCH (08:49)
[2022-09-26] MEDS: atenoloL 25 MG TAB PO SCH (08:49)
[2022-09-26] MEDS: FLUCONAZOLE 100 MG TAB PO SCH (08:49)
[2022-09-26] MEDS: ASPIRIN 81 MG PO SCH (08:50)
[2022-09-26] MEDS: PANTOPRAZOLE 40 MG/10 ML VIAL IVP SCH (08:50)
[2022-09-26] MEDS: MEMANTINE 5 MG TAB PO SCH ×2 (08:50→20:17)
[2022-09-26] MEDS: LACTULOSE 20 GM/30 ML CUP PO SCH ×3 (08:50→20:17)
[2022-09-26] MEDS: IPRATROPIUM-ALBUTEROL 3 ML NEB INHALATION SCH ×4 (09:31→20:00)
--- NOTE | 2022-09-26 15:50 | P.PN ---
Subjective Progress Note Date: 09/26/22 CHIEF COMPLAINT: Hiatal hernia HISTORY OF PRESENT ILLNESS: Patient status post EGD with results showing hiatal hernia and GERD. Patient has no new complaints. She is tolerating diet. Aspiration precautions in place. Last BM 2 days ago Patient seen and examined with Dr. baeza PHYSICAL EXAM: VITAL SIGNS: Reviewed. GENERAL: Well-developed in no acute distress. ABDOMEN: Soft. Nondistended. Nontender. ASSESSMENT: 1. Hiatal Hernia 2. GERD 3. Proctitis 4. Fecal impaction resolved 5. Possible aspiration pneumonitis PLAN: -No surgical intervention planned -Continue dysphagia chopped diet -Continue to follow aspiration precautions -Continue PPI -Antibiotics per ID service -Discharge planning in progress Physician Apns note has been reviewed by physician. Signing provider agrees with the documented findings, assessment, and plan of care. Objective - Vital Signs Vital signs: Vital Signs Temp 98.1 F 09/26/22 07:55 Pulse 76 09/26/22 12:49 Resp 16 09/26/22 08:49 BP 118/67 09/26/22 07:55 Pulse Ox 98 09/26/22 07:55 FiO2 21 09/25/22 08:10 Intake & Output 09/25/22 09/26/22 09/26/22 18:59 06:59 18:59 Output Total 600 275 Balance -600 -275 Weight 50.349 kg 50.349 kg Output: Urine 600 275 Other: Voiding Method External Catheter External Catheter External Catheter # Bowel Movements 1 1 - Labs CBC & Chem 7: 09/25/22 05:28 09/25/22 05:28 Labs: Abnormal Lab Results - Last 24 Hours (Table) 09/25/22 Range/Units 05:28 Neutrophils # (Manual) 11.64 H (1.80-7.70) X 10*3/uL
[2022-09-26] MEDS: DONEPEZIL 10 MG TAB PO SCH (20:17)
--- NOTE | 2022-09-26 22:26 | PN ---
PROGRESS NOTE SUBJECTIVE: She is going to be placed on palliative hospice care per family's request. She is alert, oriented, giving appropriate answers. Pleasantly confused. She is on IV antibiotics for UTI, drug-resistant. OBJECTIVE: CARDIOVASCULAR: S1, S2. LUNGS: Clear. GI: Soft. ASSESSMENT: Drug-resistant UTI, metabolic encephalopathy, dementia. Continue with hospice care, palliative. MMODL / IJN: [id number] /
[2022-09-27] MEDS: PIPERACILLIN-TAZOBACTAM 3.375 GM in SODIUM CHLORIDE 0.9% 100 ML IVPB SCH ×3 (00:40→17:18)
[2022-09-27] MEDS: LEVOTHYROXINE 50 MCG TAB PO SCH (06:20)
[2022-09-27] MEDS: atenoloL 25 MG TAB PO SCH (07:49)
[2022-09-27] MEDS: LACTULOSE 20 GM/30 ML CUP PO SCH ×3 (07:49→20:34)
[2022-09-27] MEDS: MULTIVITAMINS, THERA 1 EACH TAB PO SCH (07:49)
[2022-09-27] MEDS: ASPIRIN 81 MG PO SCH (07:49)
[2022-09-27] MEDS: POTASSIUM CHLORIDE ER 20 MEQ TAB.ER PO SCH (07:49)
[2022-09-27] MEDS: MEMANTINE 5 MG TAB PO SCH ×2 (07:49→20:33)
[2022-09-27] MEDS: FERROUS SULFATE 325 MG TAB PO SCH (07:50)
[2022-09-27] MEDS: FLUCONAZOLE 100 MG TAB PO SCH (07:50)
[2022-09-27] MEDS: PANTOPRAZOLE 40 MG/10 ML VIAL IVP SCH (09:07)
[2022-09-27] MEDS: IPRATROPIUM-ALBUTEROL 3 ML NEB INHALATION SCH ×4 (09:41→21:26)
--- NOTE | 2022-09-27 13:28 | P.PN ---
Subjective Progress Note Date: 09/27/22 CHIEF COMPLAINT: Hiatal hernia HISTORY OF PRESENT ILLNESS: Patient status post EGD with results showing hiatal hernia and GERD. Patient has no new complaints. She is tolerating diet. Aspiration precautions in place. Discharge planning in progress. Afebrile. Patient seen and examined with Dr. baeza PHYSICAL EXAM: VITAL SIGNS: Reviewed. GENERAL: Well-developed in no acute distress. ABDOMEN: Soft. Nondistended. Nontender. ASSESSMENT: 1. Hiatal Hernia 2. GERD 3. Proctitis 4. Fecal impaction resolved 5. Possible aspiration pneumonitis PLAN: -No surgical intervention planned -Okay to discharge from surgical standpoint -Continue dysphagia chopped diet -Continue to follow aspiration precautions -Continue PPI -Antibiotics per ID service -Discharge planning in progress Physician Dial Brusher note has been reviewed by physician. Signing provider agrees with the documented findings, assessment, and plan of care. Objective - Vital Signs Vital signs: Vital Signs Temp 98.3 F 09/27/22 07:34 Pulse 78 09/27/22 12:53 Resp 17 09/27/22 07:34 BP 148/58 09/27/22 07:34 Pulse Ox 98 09/27/22 09:41 FiO2 21 09/25/22 08:10 Intake & Output 09/26/22 09/27/22 09/27/22 18:59 06:59 18:59 Intake Total 440 Output Total 250 Balance 440 -250 Weight 50.349 kg Intake: Intake, IV Titration 440 Amount Lactated Ringers 1,000 ml 240 @ 20 mls/hr IV .Q24H [facility] Rx#:[id number] Piperacillin-Tazobactam 3 200 .375 gm In Sodium Chloride 0.9% 100 ml @ 25 mls/hr IVPB Q8HR [facility] Rx# :[id number] Output: Urine 250 Other: Voiding Method External Catheter External Catheter External Catheter # Voids 1 # Bowel Movements 1 1 - Labs CBC & Chem 7: 09/25/22 05:28 09/25/22 05:28 Labs: Microbiology - Last 24 Hours (Table) 09/21/22 06:34 Blood Culture - Final Blood
[2022-09-27] MEDS: DONEPEZIL 10 MG TAB PO SCH (20:33)
[2022-09-27] MEDS: LACTATED RINGERS 1,000 ML IV SCH (20:34)
[2022-09-27] MEDS: AMOXIC-POT CLAV 875-125MG 1 EACH TAB PO SCH (22:14)
[2022-09-28 02:51] VITALS: TEMP 97.8
[2022-09-28] MEDS: LEVOTHYROXINE 50 MCG TAB PO SCH (06:16)
[2022-09-28] MEDS ORDERED: PANTOPRAZOLE 40 MG TABLET PO SCH (07:30)
[2022-09-28] MEDS: IPRATROPIUM-ALBUTEROL 3 ML NEB INHALATION SCH ×3 (08:11→15:56)
--- NOTE | 2022-09-28 08:40 | P.PN ---
Subjective Progress Note Date: 09/26/22 Principal diagnosis: Possible aspiration pneumonitis and proctitis Patient is a 87-year-old female with a past medical history significant for COPD dementia GERD heart failure history of metastatic breast cancer and recurrent UTIs who was sent to the ER from adult foster care for worsening shortness of breath and wheezing , patient did have a abnormal UA as well as CT abdominal pelvis with concern for stool retention distention of the rectum and possible pneumatosis. On today's evaluation that is 09/26/2022 patient remains to be afebrile, the patient is breathing comfortably on room air currently satting 97%, patient denies any chest pain or cough abdominal pain or diarrhea has been reported Objective - Vital Signs Vital signs: Vital Signs Temp 98.1 F 09/26/22 07:55 Pulse 80 09/26/22 09:41 Resp 16 09/26/22 07:55 BP 118/67 09/26/22 07:55 Pulse Ox 98 09/26/22 07:55 FiO2 21 09/25/22 08:10 Intake & Output 09/25/22 09/26/22 09/26/22 18:59 06:59 18:59 Output Total 600 275 Balance -600 -275 Weight 50.349 kg Output: Urine 600 275 Other: Voiding Method External Catheter External Catheter # Bowel Movements 1 - Exam GENERAL DESCRIPTION: An elderly female lying in bed in no distress RESPIRATORY SYSTEM: Unlabored breathing , decreased breath sounds at bases HEART: S1 S2 regular rate and rhythm , ABDOMEN: Soft , no tenderness EXTREMITIES: No edema feet - Labs CBC & Chem 7: 09/25/22 05:28 09/25/22 05:28 Labs: Abnormal Lab Results - Last 24 Hours (Table) 09/25/22 09/25/22 Range/Units 05:28 05:28 Neutrophils # (Manual) 11.64 H (1.80-7.70) X 10*3/uL Lymphocytes # (Manual) 0.87 L (0.90-5.00) X 10*3/uL Eosinophils # (Manual) 0.58 H (0.04-0.35) X 10*3/uL Basophils # (Manual) 0.15 H (0.00-0.10) X 10*3/uL Elliptocytes 2+ A Chloride 111 H (96-109) mmol/L Carbon Dioxide 21.0 L (21.6-31.8) mmol/L Calcium 8.1 L (8.7-10.3) mg/dL Total Protein 5.0 L (6.2-8.2) d/dL Albumin 2.8 L (3.8-4.9) d/dL Albumin/Globulin Ratio 1.27 L (1.60-3.17) Ratio Assessment and Plan (1) Aspiration pneumonia Current Visit: Yes Status: Acute Code(s): J69.0 - PNEUMONITIS DUE TO INHALATION OF FOOD AND VOMIT SNOMED Code(s): 827399303 (2) Proctitis Current Visit: Yes Status: Acute Code(s): K62.89 - OTHER SPECIFIED DISEASES OF ANUS AND RECTUM SNOMED Code(s): 8685776 (3) UTI (urinary tract infection) Current Visit: Yes Status: Acute Code(s): N39.0 - URINARY TRACT INFECTION, SITE NOT SPECIFIED SNOMED Code(s): 75256719 Plan: 1patient present to hospital with shortness of breath and cough in this patient noticed to have significant abnormality on the CT chest abdominal pelvis with concern for fecal impaction and rectal pneumatosis also have a dilated esophagus and concern for possible aspiration pneumonitis, patient also have a positive UA and a component of urine tract infection not entirely excluded 2-patient has cefuroxime allergies that would limit the number of antibiotics safe to use 3Patient seemed to have shown clinical improvement on Unasyn to continue that should cover the rectal pneumatosis, however urine culture now growing VRE and a Pseudomonas the question of possible contamination versus pathogen 4-Patient seem to have shown clinical improvement and the white count was down to 14,000 as of yesterday no CBC has been done today we will continue patient on Zosyn and Diflucan discontinue daptomycin and monitor clinical course closely
--- NOTE | 2022-09-28 08:42 | P.PN ---
Subjective Progress Note Date: 09/27/22 Principal diagnosis: Possible aspiration pneumonitis and proctitis Patient is a 87-year-old female with a past medical history significant for COPD dementia GERD heart failure history of metastatic breast cancer and recurrent UTIs who was sent to the ER from adult foster care for worsening shortness of breath and wheezing , patient did have a abnormal UA as well as CT abdominal pelvis with concern for stool retention distention of the rectum and possible pneumatosis. On today's evaluation that is 09/27/2022 the patient remains to be afebrile the patient is breathing comfortably on room air denies any chest pain shortness of breath or cough no vomiting diarrhea or any other change was reported by the nursing staff they were not able to get another IV and requesting switching antibiotics to p.o. Objective - Vital Signs Vital signs: Vital Signs Temp 98.3 F 09/27/22 07:34 Pulse 78 09/27/22 12:53 Resp 17 09/27/22 07:34 BP 148/58 09/27/22 07:34 Pulse Ox 98 09/27/22 09:41 FiO2 21 09/25/22 08:10 Intake & Output 09/26/22 09/27/22 09/27/22 18:59 06:59 18:59 Intake Total 440 Output Total 250 Balance 440 -250 Weight 50.349 kg Intake: Intake, IV Titration 440 Amount Lactated Ringers 1,000 ml 240 @ 20 mls/hr IV .Q24H [facility] Rx#:[id number] Piperacillin-Tazobactam 3 200 .375 gm In Sodium Chloride 0.9% 100 ml @ 25 mls/hr IVPB Q8HR [facility] Rx# :[id number] Output: Urine 250 Other: Voiding Method External Catheter External Catheter External Catheter # Voids 1 # Bowel Movements 1 1 - Exam GENERAL DESCRIPTION: An elderly female lying in bed in no distress RESPIRATORY SYSTEM: Unlabored breathing , decreased breath sounds at bases HEART: S1 S2 regular rate and rhythm , ABDOMEN: Soft , no tenderness EXTREMITIES: No edema feet - Labs CBC & Chem 7: 09/25/22 05:28 09/25/22 05:28 Labs: Microbiology - Last 24 Hours (Table) 09/21/22 06:34 Blood Culture - Final Blood Assessment and Plan (1) Aspiration pneumonia Current Visit: Yes Status: Acute Code(s): J69.0 - PNEUMONITIS DUE TO INHALATION OF FOOD AND VOMIT SNOMED Code(s): 315740620 (2) Proctitis Current Visit: Yes Status: Acute Code(s): K62.89 - OTHER SPECIFIED DISEASES OF ANUS AND RECTUM SNOMED Code(s): 1527510 (3) UTI (urinary tract infection) Current Visit: Yes Status: Acute Code(s): N39.0 - URINARY TRACT INFECTION, SITE NOT SPECIFIED SNOMED Code(s): 55682811 Plan: 1patient present to hospital with shortness of breath and cough in this patient noticed to have significant abnormality on the CT chest abdominal pelvis with concern for fecal impaction and rectal pneumatosis also have a dilated esophagus and concern for possible aspiration pneumonitis, patient also have a positive UA and a component of urine tract infection not entirely excluded 2-patient has cefuroxime allergies that would limit the number of antibiotics safe to use 3Patient seemed to have shown clinical improvement on Unasyn to continue that should cover the rectal pneumatosis, however urine culture now growing VRE and a Pseudomonas the question of possible contamination versus pathogen 4-Patient seem to have shown clinical improvement , And the white count was trending down and no CBC was done today nursing staff are not able to establish an IV we will discontinue Zosyn and start the patient on oral Augmentin continue with the Diflucan repeat CBC and CRP with a.m. lab Time with Patient: Less than 30
[2022-09-28] MEDS: POTASSIUM CHLORIDE ER 20 MEQ TAB.ER PO SCH (09:21)
[2022-09-28 09:23] VITALS: RESP 16
[2022-09-28] MEDS: LACTULOSE 20 GM/30 ML CUP PO SCH ×2 (09:25→16:23)
[2022-09-28] MEDS: MULTIVITAMINS, THERA 1 EACH TAB PO SCH (09:25)
[2022-09-28] MEDS: FERROUS SULFATE 325 MG TAB PO SCH (09:25)
[2022-09-28] MEDS: MEMANTINE 5 MG TAB PO SCH (09:25)
[2022-09-28] MEDS: ASPIRIN 81 MG PO SCH (09:25)
[2022-09-28] MEDS: FLUCONAZOLE 100 MG TAB PO SCH (09:25)
[2022-09-28] MEDS: atenoloL 25 MG TAB PO SCH (09:25)
[2022-09-28] MEDS: AMOXIC-POT CLAV 875-125MG 1 EACH TAB PO SCH (10:46)
[2022-09-28 11:12] LABS: Basophils # (A) 0.12 X 10*3/uL (0.00-0.10); Basophils % (A) 1.1 %; Eosinophils # (A) 0.23 X 10*3/uL (0.04-0.35); Eosinophils % (A) 2.1 %; HCT 34.7 % (37.2-46.3); HGB 10.6 d/dL (12.0-15.0); Lymphocytes # (A) 1.41 X 10*3/uL (0.90-5.00); Lymphocytes % (A) 12.7 %; MCHC 30.5 d/dL (32.0-37.0); MCV 94.8 FL (80.0-97.0); Mean Platelet Volume 10.6 FL (9.5-12.2); Monocytes # (A) 0.97 X 10*3/uL (0.20-1.00); Monocytes % (A) 8.7 %; NRBC Per 100 WBC 0 X 10*3/uL (0.00-0.01); Neutrophils # (A) 7.87 X 10*3/uL (1.80-7.70); Neutrophils % (A) 70.9 %; Platelet Count 258 X 10*3/uL (140-440); RBC 3.66 X 10*6/uL (4.10-5.20); RDW 17.9 % (11.5-14.5)
[2022-09-28 12:11] LABS: ALT 10 U/L (8-44); AST 15 U/L (13-35); Albumin/Globulin Ratio 1.25 Ratio (1.60-3.17); Alkaline Phosphatase 70 U/L (41-126); Calcium 8.1 mg/dL (8.7-10.3); Carbon Dioxide 20.5 mmol/L (21.6-31.8); Chloride 108 mmol/L (96-109); Globulin 2.4 d/dL (1.6-3.3); Glucose 88 mg/dL (70-110); Potassium 3.7 mmol/L (3.5-5.5); Sodium 139 mmol/L (135-145); Total Bilirubin 0.3 mg/dL (0.3-1.2); Total Protein 5.4 d/dL (6.2-8.2)
--- NOTE | 2022-09-28 13:53 | P.PN ---
Subjective Progress Note Date: 09/28/22 CHIEF COMPLAINT: Hiatal hernia HISTORY OF PRESENT ILLNESS: Patient status post EGD with results showing hiatal hernia and GERD. Patient has no new complaints. She is tolerating diet. Aspiration precautions in place. Discharge planning in progress. Afebrile. Patient seen and examined with Dr. baeza PHYSICAL EXAM: VITAL SIGNS: Reviewed. GENERAL: Well-developed in no acute distress. ABDOMEN: Soft. Nondistended. Nontender. ASSESSMENT: 1. Hiatal Hernia 2. GERD 3. Proctitis 4. Fecal impaction resolved 5. Possible aspiration pneumonitis PLAN: -Surgical service will sign off. Please call with any questions or concerns -No surgical intervention planned -Okay to discharge from surgical standpoint -Continue dysphagia chopped diet -Continue to follow aspiration precautions -Continue PPI -Antibiotics per ID service -Discharge planning in progress Physician Corporate Planning Manager note has been reviewed by physician. Signing provider agrees with the documented findings, assessment, and plan of care. Objective - Vital Signs Vital signs: Vital Signs Temp 97.8 F 09/28/22 00:50 Pulse 84 09/28/22 08:23 Resp 20 09/28/22 00:50 BP 127/65 09/28/22 00:50 Pulse Ox 96 09/28/22 08:13 FiO2 21 09/28/22 08:13 Intake & Output 09/27/22 09/28/22 09/28/22 18:59 06:59 18:59 Other: Voiding Method External Catheter External Catheter # Voids 2 3 # Bowel Movements 1 - Labs CBC & Chem 7: 09/28/22 07:16 09/28/22 07:16 Labs: Abnormal Lab Results - Last 24 Hours (Table) 09/23/22 Range/Units 05:22 Promyelocytes # (Man) 0.18 H (0) k/uL Microbiology - Last 24 Hours (Table) 09/13/22 22:26 Urine Culture - Final Urine,Catheterized Enterococcus faecium VRE Pseudomonas aeruginosa
--- NOTE | 2022-09-28 14:59 | DS ---
DISCHARGE SUMMARY DIAGNOSES: 1. Acute exacerbation of chronic obstructive pulmonary disease. 2. Drug-resistant urinary tract infection. 3. Aspiration pneumonia. 4. Proctitis urinary tract infection. 5. Dementia. 6. Hypothyroidism. 7. Hypertension. HOME MEDICATIONS: 1. COPD, oxygen dependent, wears oxygen 2 L at nighttime. 2. Augmentin 875 b.i.d. for 14 days. 3. Diflucan 100 mg daily for 10 days. 4. Lactulose 20 g t.i.d. 5. DuoNeb q.i.d. 6. Synthroid 50 mcg daily. 7. Omeprazole 40 mg daily. 8. Multivitamin 1 daily. 9. Aricept 10 mg daily. 10.Ferrous sulfate 325 mg daily. 11.Senokot 8.6 mg daily. 12.Potassium chloride 20 mEq daily. 13.Aspirin 81 mg daily. 14.Namenda 5 mg b.i.d. 15.Tylenol 650 q.4 p.r.n. 16.Tenormin 25 daily. Ambulate as tolerated. The patient came in with metabolic encephalopathy secondary to UTI, COPD, drug-resistant UTI, aspiration pneumonia, proctitis UTI. Home medications have been restarted. She is started on IV antibiotics and IV antifungals for urine culture reports. The patient has stabilized medical condition and was stable for discharge to follow up as an outpatient. CONDITION: Stable. PROGNOSIS: Guarded. Please see further orders. Follow up with Dr. Zhong. She is going to palliative hospice, so I can take care of her in the hospital. I would highly recommend do not take her oxygen off 2 L when she is sleeping or napping, do not take it off. MMODL / IJN: [id number] /
[2022-09-28 16:25] VITALS: BP 123/63; PULSE 99
--- NOTE | 2022-09-28 19:26 | PN ---
PROGRESS NOTE SUBJECTIVE: An 87-year-old white female, who is admitted. She is going to go home on Augmentin and Diflucan for 10 days for UTI, drug-resistant. She is going to go to palliative hospice. Remain on updraft treatments and home oxygen 2 L for COPD. For her dementia and GERD precautions, continue on current treatments. OBJECTIVE: CARDIOVASCULAR: S1 and S2. LUNGS: Clear. GI: Soft. HEMATOLOGY: Negative Homans. VITAL SIGNS: O2 of 96% on room air, blood pressure is 123/63, pulse 93. ASSESSMENT: 1. Dementia. 2. Chronic obstructive pulmonary disease. 3. Nocturnal hypoxemia. She wears 2 L oxygen at nighttime only when she sleeps. Make sure she wears that on discharge. Please see further orders. Prognosis is guarded. MMODL / IJN: [id number] /
--- NOTE | 2022-10-02 10:53 | CDI ---
Documentation Clarification Form Date: 10/02/2022 10:22:24 AM From: Michelle Griffin Phone: Admit Date: 09/13/2022 10:32:00 PM Patient Name: Emely Whiting Visit Number: [id number] Discharge Date: 09/28/2022 05:18:00 PM ATTENTION: The Clinical Documentation Specialists (CDI) and [facility] Coding Staff appreciate your assistance in clarifying documentation. Please respond to the clarification below the line at the bottom and electronically sign. The CDI & [facility] Coding staff will review the response and follow-up if needed. Please note: Queries are made part of the Legal Health Record. If you have any questions, please contact the author of this message via ITS. Dr. Victor Hugo Zhong The patient has Sepsis per Progress Note 09/25/22. Based on this information and the findings below, is there an additional diagnosis that is clinically appropriate for this patient? History/Risk Factors: 87yo F, AECOPD, VRE UTI, Aspiration pneumonia, proctitis, Alzheimers Dementia, Hypothyroidism, HTN w CHF, Hx cancers, metabolic encephalopathy Clinical Indicators: WBC: 09/13 7.6 09/19 14.7 09/21 17.37 09/23 18.35 Lactic acid: 09/13 2.1 09/14 1.0 Blood cultures: No growth after 5 days Vitals sign: 09/13/22Temp 98.3 F Pulse 120 H Resp 18 B/P 105/59 Pulse Ox 97 09/15 Temp 97 to 98, pulse 96-102, Resp 16- 20, B/P 100-120-130 over 60s, O2 97 to 98 Treatment: Started on IV antibiotics and IV antifungals for urine culture reports. Augmentin 875 b.i.d. for 14 days Please clarify if the sepsis was POA [ ] Sepsis, present on admission [ ] Sepsis, developed during stay, not present on admission [ ] Sepsis ruled out [ ] Other, please specify [ ] Unable to determine SIRS Criteria: 2 or more of the following may indicate SIRS Temperature < 96.8F (36C) or > 101.0F (38.3C) Heart Rate > 90 bpm Respiratory Rate > 20 breaths/min or PaCO2 < 32 mmHg White Blood Cell Count > 12,000 or < 4,000 cells/mm3 or > 10% bands (Template Last Reviewed: April 2022) MTDD
--- NOTE | 2022-10-04 10:47 | CDI ---
Documentation Clarification Form Date: 10/04/2022 10:43:46 AM From: Michelle Griffin Phone: Admit Date: 09/13/2022 10:32:00 PM Patient Name: Emely Whiting Visit Number: [id number] Discharge Date: 09/28/2022 05:18:00 PM ATTENTION: The Clinical Documentation Specialists (CDI) and [facility] Coding Staff appreciate your assistance in clarifying documentation. Please respond to the clarification below the line at the bottom and electronically sign. The CDI & [facility] Coding staff will review the response and follow-up if needed. Please note: Queries are made part of the Legal Health Record. If you have any questions, please contact the author of this message via ITS. Dr. Victor Hugo Zhong Thank you for acknowledging the previous query; however, it lacked clarification. The patient hasSepsisper Progress Note09/25/22.Based on this information and the findings below, is there an additional diagnosis that is clinically appropriate for this patient? History/Risk Factors: 87yo F,AECOPD,VREUTI,Aspiration pneumonia,proctitis, AlzheimersDementia,Hypothyroidism,HTNwCHF, Hxcancers,metabolic encephalopathy Clinical Indicators: WBC: 09/13 7.6 09/19 14.7 09/21 17.37 09/23 18.35 Lactic acid: 09/13 2.1 09/14 1.0 Blood cultures: No growth after 5 days Vitals sign: 09/13/22Temp 98.3 F Pulse 120 H Resp 18 B/P 105/59 Pulse Ox 97 09/15 Temp 97 to 98, pulse 96-102, Resp 16- 20, B/P 100-120-130 over 60s, O2 97 to 98 Treatment: Started on IV antibiotics and IV antifungals for urine culture reports. Augmentin 875 b.i.d. for 14 days Please clarify if thesepsiswas POA [ ]Sepsis, present on admission [ ]Sepsis, developed during stay, not present on admission [ ]Sepsisruled out [ ] Other, please specify [ ] Unable to determine SIRSCriteria: 2 or more of the following may indicateSIRS Temperature < 96.8F (36C) or > 101.0F (38.3C) Heart Rate > 90 bpm Respiratory Rate > 20 breaths/min or PaCO2 < 32 mmHg White Blood Cell Count > 12,000 or < 4,000 cells/mm3 or > 10% bands (Template Last Reviewed: April 2022) [facility]
--- NOTE | 2022-10-06 11:24 | PN ---
PROGRESS NOTE Sepsis present on admission. MMODL / IJN: [id number] /
== END 2022-09-28 17:18 | disposition home health service (06) | DRG 177 ==
LOC: EC 19:53 → 5NMEDONC 22:32 → 4SSUR 09-14 13:50
PROVIDERS: ADMIT Family Medicine; ATTEND Family Medicine
PROC: 0DJ08ZZ Inspection of Upper Intestinal Tract, Via Natural or Artificial Opening Endoscopic (ICD-10-PCS; principal; 2022-09-20 10:35)
DX: J69.0 Pneumonitis due to inhalation of food and vomit (principal); A41.81 Sepsis due to Enterococcus; G93.41 Metabolic encephalopathy; R64 Cachexia; E87.21 Acute metabolic acidosis; C79.51 Secondary malignant neoplasm of bone; J44.1 Chronic obstructive pulmonary disease with (acute) exacerbation; N39.0 Urinary tract infection, site not specified; Z68.1 Body mass index [BMI] 19.9 or less, adult; Z16.22 Resistance to vancomycin related antibiotics; E03.9 Hypothyroidism, unspecified; I11.0 Hypertensive heart disease with heart failure; F02.80 Dementia in other diseases classified elsewhere, unspecified severity, without behavioral disturbance, psychotic disturbance, mood disturbance, and anxiety; I50.9 Heart failure, unspecified; G30.9 Alzheimer's disease, unspecified; R54 Age-related physical debility; Z99.81 Dependence on supplemental oxygen; Z51.5 Encounter for palliative care; K56.41 Fecal impaction; Z66 Do not resuscitate; K21.9 Gastro-esophageal reflux disease without esophagitis; K44.9 Diaphragmatic hernia without obstruction or gangrene; R13.10 Dysphagia, unspecified; B95.2 Enterococcus as the cause of diseases classified elsewhere; B96.5 Pseudomonas (aeruginosa) (mallei) (pseudomallei) as the cause of diseases classified elsewhere; R09.02 Hypoxemia; K22.89 Other specified disease of esophagus; K63.89 Other specified diseases of intestine; S40.812A Abrasion of left upper arm, initial encounter; E78.5 Hyperlipidemia, unspecified; R32 Unspecified urinary incontinence; R01.1 Cardiac murmur, unspecified; W19.XXXA Unspecified fall, initial encounter; Y92.009 Unspecified place in unspecified non-institutional (private) residence as the place of occurrence of the external cause; Z79.890 Hormone replacement therapy; Z85.3 Personal history of malignant neoplasm of breast; Z79.899 Other long term (current) drug therapy; Z79.82 Long term (current) use of aspirin; Z88.8 Allergy status to other drugs, medicaments and biological substances; Z86.14 Personal history of Methicillin resistant Staphylococcus aureus infection; Z90.11 Acquired absence of right breast and nipple; Z87.440 Personal history of urinary (tract) infections; Z80.3 Family history of malignant neoplasm of breast; Z28.311 Partially vaccinated for COVID-19; Q71.31 Congenital absence of right hand and finger
CPT/HCPCS: 36415; 43235; 71045; 71250; 74176; 74246; 80048; 80053; 81001; 83605; 83880; 84484; 85025; 85027; 85610; 85730; 86140; 87040; 87077; 87086; 87186; 93005; 94640; 94760; 96365; 96367; 99285

== ENCOUNTER 2023-01-15 02:17 | Observation (INO) | payer MEDICARE ==
[2023-01-15] MEDS ORDERED: SODIUM CHLORIDE 0.9% 1,000 ML IV STA (02:56)
--- NOTE | 2023-01-15 02:58 | ED ---
SOB HPI - General Chief Complaint: Shortness of Breath Stated Complaint: Difficulty Breathing Time Seen by Provider: 01/15/23 02:20 Source: patient, EMS Mode of arrival: EMS Limitations: no limitations - History of Present Illness Initial Comments: Emely is a pleasant 87-year-old female brought to the ER today by EMS for evaluation of shortness breath. Patient reports she was feeling some shortness of breath she has for assistance at her residential they noted that she had a wet sounding minimally productive cough, they felt that she appeared cyanotic and when they checked her oxygen saturation noted that it was in the 80s and called EMS for transport. Patient denies any chest pain or palpitations. She states she's had a cough not certain how long. - Related Data Home Medications Medication Instructions Recorded Confirmed Levothyroxine Sodium [Synthroid] 50 mcg PO DAILY 04/01/17 09/13/22 Multivitamins, Thera [Multivitamin 1 tab PO DAILY 11/02/19 09/13/22 (formulary)] Omeprazole 40 mg PO DAILY 11/02/19 09/13/22 Sennosides [Senokot] 8.6 mg PO DAILY PRN 05/25/22 09/13/22 Aspirin EC [Ecotrin Low Dose] 81 mg PO DAILY 06/15/22 09/13/22 Ferrous Sulfate [Iron (65 MG 325 mg PO DAILY 07/24/22 09/13/22 Elemental)] atenoloL [Tenormin] 25 mg PO DAILY 09/13/22 09/13/22 Previous Rx's Medication Instructions Recorded Potassium Chloride ER [K-Dur 20] 20 meq PO DAILY 90 Days #90 tab 05/31/22 Donepezil [Aricept] 10 mg PO HS 90 Days #90 tab 06/19/22 Memantine [Namenda] 5 mg PO BID 90 Days #180 tab 06/19/22 Acetaminophen Tab [Tylenol] 650 mg PO Q4H PRN #30 tablet 07/31/22 Amoxic-Pot Clav 875-125Mg 1 each PO Q12HR 10 Days #20 tab 09/28/22 [Augmentin 875-125] Fluconazole [Diflucan] 100 mg PO DAILY 10 Days #10 tab 09/28/22 Ipratropium-Albuterol Nebulize 3 ml INHALATION RT-QID 30 Days 09/28/22 [Duoneb 0.5 mg-3 mg/3 ml Soln] #120 each Lactulose [Cephulac] 20 gm PO TID ml 09/28/22 Allergies Allergy/AdvReac Type Severity Reaction Status Date / Time cefuroxime Allergy Intermediate Hives Verified 09/13/22 22:42 Review of Systems ROS Statement: Those systems with pertinent positive or pertinent negative responses have been documented in the HPI. ROS Other: All systems not noted in ROS Statement are negative. 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 Past Anesthesia/Blood Transfusion Reactions: No Reported Reaction Past Psychological History: No Psychological Hx Reported Smoking Status: Unknown if ever smoked Past Alcohol Use History: None Reported Past Drug Use History: None Reported - Past Family History Father Additional Family Medical History / Comment(s): heart disease. Mother Additional Family Medical History / Comment(s): heart disease. Sister(s) Family Medical History: Cancer Additional Family Medical History / Comment(s): 3 SISTERS WITH BREAST CA General Exam - General Exam Comments Initial Comments: Physical Exam GENERAL: Elderly, no distress Coughing HENT: Normocephalic, Atraumatic. EYES: PERRL, EOMI PULMONARY: Frequent wet cough Crackles at bilateral bases CARDIOVASCULAR: RRR ABDOMEN: Soft and nontender with normal bowel sounds. SKIN: Pale : Deferred NEUROLOGIC: Patient is alert and oriented x3. Moving all extremities spontaneously MUSCULOSKELETAL: Generalized atrophy PSYCHIATRIC: Normal psychiatric evaluation. Limitations: no limitations Course Vital Signs 01/15/23 01/15/23 01/15/23 02:23 04:00 05:00 Temperature 97.8 F Pulse Rate 90 91 89 Respiratory 16 16 18 Rate Blood Pressure 127/62 127/67 132/72 O2 Sat by Pulse 93 L 95 97 Oximetry 01/15/23 06:00 Temperature Pulse Rate 83 Respiratory 18 Rate Blood Pressure 135/63 O2 Sat by Pulse 95 Oximetry Medical Decision Making - Medical Decision Making Was pt. sent in by a medical professional or institution ([facility], [facility], urgent care, hospital, or residential...) When possible be specific @ -[facility] Did you speak to anyone other than the patient for history (EMS, parent, family, police, friend...)? What history was obtained from this source @ -YES, EMS Did you review nursing and triage notes (agree or disagree)? Why? @ -I reviewed and agree with nursing and triage notes Were old charts reviewed (outside hosp., previous admission, EMS record, old EKG, old radiological studies, urgent care reports/EKG's, residential records)? Report findings @ -Previous hospitalizations were reviewed Differential Diagnosis (chest pain, altered mental status, abdominal pain women, abdominal pain men, vaginal bleeding, weakness, fever, dyspnea, syncope, headache, dizziness, GI bleed, back pain, seizure, CVA, palpatations, mental health, musculoskeletal)? @ -Differential Dyspnea: Coronary syndrome, arrhythmia, tamponade, asthma, COPD, pulmonary embolism, pneumonia, pneumothorax, pulmonary effusion, anaphylaxis, diabetic ketoacidosis, flailed chest, pulmonary contusion, diaphragmatic rupture, anemia, neuromuscular, this is not meant to be an all-inclusive list. EKG interpreted by me (3pts min.). @ -As above X-rays interpreted by me (1pt min.). @ -No pneumothorax, no effusions, severe scoliosis, cardiomegaly CT interpreted by me (1pt min.). @ -None done U/S interpreted by me (1pt. min.). @ -None done What testing was considered but not performed or refused? (CT, X-rays, U/S, labs)? Why? @ -None What meds were considered but not given or refused? Why? @ -None Did you discuss the management of the patient with other professionals (professionals i.e. [facility], [facility], lab, RT, psych nurse, social work job titles, director of collections, teacher, welfare officer, patient case coordinator)? Give summary @ -No Was smoking cessation discussed for >3mins.? @ -No Was critical care preformed (if so, how long)? @ -No Were there social determinants of health that impacted care today? How? (Homelessness, low income, unemployed, alcoholism, drug addiction, transportation, low edu. Level, literacy, decrease access to med. care, [place] [facility], rehab)? @ -No Was there de-escalation of care discussed even if they declined (Discuss DNR or withdrawal of care, Hospice)? DNR status @ -No What co-morbidities impacted this encounter? (DM, HTN, Smoking, COPD, CAD, Cancer, CVA, ARF, Chemo, Hep., AIDS, mental health diagnosis, sleep apnea, morbid obesity)? @ -COPD, cancer, Was patient admitted / discharged? Hospital course, mention meds given and ro christiano, prescriptions, significant lab abnormalities, going to OR and other pertinent info. @ -Admit Patient was seen and evaluated upon arrival the emergency department. She is placed on supplemental oxygen and her hypoxia has resolved. Labs and imaging were obtained. Chest x-ray was reviewed there is no large pleural effusions is no pneumothorax no consolidations. Patient will be admitted for COPD exacerbation and oxygen supplementation. Undiagnosed new problem with uncertain prognosis? @ -No Drug Therapy requiring intensive monitoring for toxicity (Heparin, Nitro, Insulin, Cardizem)? @ -No Were any procedures done? @ -No Diagnosis/symptom? @ -COPD exacerbation Acute, or Chronic, or Acute on Chronic? @ -Acute on chronic Uncomplicated (without systemic symptoms) or Complicated (systemic symptoms)? @ -default Side effects of treatment? @ -No Exacerbation, Progression, or Severe Exacerbation? @ -No Poses a threat to life or bodily function? How? (Chest pain, USA, ME, pneumonia, PE, COPD, DKA, ARF, appy, cholecystitis, CVA, Diverticulitis, Homicidal, Suicidal, threat to staff... and all critical care pts) @ -No - Lab Data Result diagrams: 01/15/23 02:59 01/15/23 02:59 Lab Results 01/15/23 01/15/23 01/15/23 Range/Units 02:59 02:59 02:59 WBC 9.4 (3.8-10.6) k/uL RBC 3.60 L (3.80-5.40) m/uL Hgb 9.9 L (11.4-16.0) gm/dL Hct 30.4 L (34.0-46.0) % MCV 84.6 (80.0-100.0) fL MCH 27.5 (25.0-35.0) pg MCHC 32.5 (31.0-37.0) g/dL RDW 15.0 (11.5-15.5) % Plt Count 302 (150-450) k/uL MPV 7.7 Neutrophils % 68 % Lymphocytes % 17 % Monocytes % 7 % Eosinophils % 5 % Basophils % 1 % Neutrophils # 6.3 (1.3-7.7) k/uL Lymphocytes # 1.6 (1.0-4.8) k/uL Monocytes # 0.7 (0-1.0) k/uL Eosinophils # 0.5 (0-0.7) k/uL Basophils # 0.1 (0-0.2) k/uL Hypochromasia Slight PT 10.0 (10.0-12.5) sec INR 0.9 (<1.2) APTT 21.3 L (22.0-30.0) sec Sodium 139 (137-145) mmol/L Potassium 4.4 (3.5-5.1) mmol/L Chloride 108 H (98-107) mmol/L Carbon Dioxide 22 (22-30) mmol/L Anion Gap 9 mmol/L BUN 16 (7-17) mg/dL Creatinine 0.61 (0.52-1.04) mg/dL Est GFR (CKD-EPI)AfAm >90 (>60 ml/min/1.73 sqM) Est GFR (CKD-EPI)NonAf 81 (>60 ml/min/1.73 sqM) Glucose 129 H (74-99) mg/dL Plasma Lactic Acid Teofilo (0.7-2.0) mmol/L Calcium 8.7 (8.4-10.2) mg/dL Total Bilirubin 0.2 (0.2-1.3) mg/dL AST 21 (14-36) U/L ALT 14 (4-34) U/L Alkaline Phosphatase 97 (38-126) U/L Troponin I (0.000-0.034) ng/mL NT-Pro-B Natriuret Pep 2070 pg/mL Total Protein 6.6 (6.3-8.2) g/dL Albumin 3.2 L (3.5-5.0) g/dL Influenza Type A (PCR) (Not Detectd) Influenza Type B (PCR) (Not Detectd) RSV (PCR) (Not Detectd) SARS-CoV-2 (PCR) (Not Detectd) 01/15/23 01/15/23 01/15/23 Range/Units 02:59 02:59 02:59 WBC (3.8-10.6) k/uL RBC (3.80-5.40) m/uL Hgb (11.4-16.0) gm/dL Hct (34.0-46.0) % MCV (80.0-100.0) fL MCH (25.0-35.0) pg MCHC (31.0-37.0) g/dL RDW (11.5-15.5) % Plt Count (150-450) k/uL MPV Neutrophils % % Lymphocytes % % Monocytes % % Eosinophils % % Basophils % % Neutrophils # (1.3-7.7) k/uL Lymphocytes # (1.0-4.8) k/uL Monocytes # (0-1.0) k/uL Eosinophils # (0-0.7) k/uL Basophils # (0-0.2) k/uL Hypochromasia PT (10.0-12.5) sec INR (<1.2) APTT (22.0-30.0) sec Sodium (137-145) mmol/L Potassium (3.5-5.1) mmol/L Chloride (98-107) mmol/L Carbon Dioxide (22-30) mmol/L Anion Gap mmol/L BUN (7-17) mg/dL Creatinine (0.52-1.04) mg/dL Est GFR (CKD-EPI)AfAm (>60 ml/min/1.73 sqM) Est GFR (CKD-EPI)NonAf (>60 ml/min/1.73 sqM) Glucose (74-99) mg/dL Plasma Lactic Acid Teofilo 1.9 (0.7-2.0) mmol/L Calcium (8.4-10.2) mg/dL Total Bilirubin (0.2-1.3) mg/dL AST (14-36) U/L ALT (4-34) U/L Alkaline Phosphatase (38-126) U/L Troponin I <0.012 (0.000-0.034) ng/mL NT-Pro-B Natriuret Pep pg/mL Total Protein (6.3-8.2) g/dL Albumin (3.5-5.0) g/dL Influenza Type A (PCR) Not Detected (Not Detectd) Influenza Type B (PCR) Not Detected (Not Detectd) RSV (PCR) Not Detected (Not Detectd) SARS-CoV-2 (PCR) Not Detected (Not Detectd) - EKG Data -: EKG Interpreted by Me EKG Comments: EKG interpreted by me EKG was obtained due to shortness of breath EKG was obtained at 3:13 AM rate is 98 rhythm is sinus normal axis normal intervals AR 170 QRS 75 QTc [address] elevations or depressions no evidence of acute ischemia or infarction. Disposition Clinical Impression: COPD exacerbation, Hypoxia Disposition: ADMITTED IP TO THIS HOSP Condition: Serious Referrals: Victor Hugo Zhong MD [Primary Care Provider] - 1-2 days
[2023-01-15 03:39] LABS: Basophils # (A) 0.1 k/uL (0-0.2); Basophils % (A) 1 %; Eosinophils # (A) 0.5 k/uL (0-0.7); Eosinophils % (A) 5 %; HCT 30.4 % (34.0-46.0); HGB 9.9 gm/dL (11.4-16.0); Hypochromasia Slight; Lymphocytes # (A) 1.6 k/uL (1.0-4.8); Lymphocytes % (A) 17 %; MCH 27.5 pg (25.0-35.0); MCHC 32.5 g/dL (31.0-37.0); MCV 84.6 fL (80.0-100.0); Mean Platelet Volume 7.7; Monocytes # (A) 0.7 k/uL (0-1.0); Monocytes % (A) 7 %; Neutrophils # (A) 6.3 k/uL (1.3-7.7); Neutrophils % (A) 68 %; Platelet Count 302 k/uL (150-450); WBC 9.4 k/uL (3.8-10.6)
[2023-01-15 03:50] LABS: ALT 14 U/L (4-34); AST 21 U/L (14-36); African American GFR (CKD) >90 (>60 ml/min/1.73 sqM); Albumin 3.2 g/dL (3.5-5.0); Alkaline Phosphatase 97 U/L (38-126); Anion Gap 9 mmol/L; Blood Urea Nitrogen 16 mg/dL (7-17); Calcium 8.7 mg/dL (8.4-10.2); Carbon Dioxide 22 mmol/L (22-30); Chloride 108 mmol/L (98-107); Glucose 129 mg/dL (74-99); Non-African American GFR(CKD) 81 (>60 ml/min/1.73 sqM); Potassium 4.4 mmol/L (3.5-5.1); Sodium 139 mmol/L (137-145); Total Bilirubin 0.2 mg/dL (0.2-1.3); Total Protein 6.6 g/dL (6.3-8.2)
[2023-01-15 03:59] LABS: NT-Pro-B-Type Natriuretic Pept 2070 pg/mL
[2023-01-15 04:08] LABS: INR 0.9 (<1.2)
[2023-01-15 04:26] LABS: Partial Thromboplastin Time 21.3 sec (22.0-30.0)
[2023-01-15] MEDS ORDERED: NALOXONE 0.4 MG/ML 1 ML VIAL IVP PRN (06:54)
[2023-01-15] MEDS ORDERED: methylPREDNISolone SOD SUCCI 125 MG/2 ML VIAL IV STA (06:54)
--- NOTE | 2023-01-15 07:56 | XR ---
EXAMINATION TYPE: XR chest 2V DATE OF EXAM: 01/15/2023 3:08 AM COMPARISON: Chest radiographs from 09/13/2022 TECHNIQUE: XR chest 2V Frontal and lateral views of the chest. CLINICAL INDICATION:Female, 87 years old with history of difficulty breathing; FINDINGS: Patient is rotated which limits evaluation. Lungs/Pleura: No pleural effusion or pneumothorax. Patchy airspace opacities within the right mid and lower lung. Calcified granuloma within the left lower lobe. Pulmonary vascularity: Unremarkable. Heart/mediastinum: Cardiomediastinal silhouette is prominent in size. Musculoskeletal: No acute osseous pathology. Degenerative changes of the thoracic spine. IMPRESSION: Patchy airspace opacities within the right mid to lower lung concerning for pneumonia.
[2023-01-15] MEDS: predniSONE 20 MG TAB PO SCH (08:13)
[2023-01-15] MEDS: IPRATROPIUM-ALBUTEROL 3 ML NEB INHALATION SCH ×4 (08:52→18:41)
[2023-01-15] MEDS ORDERED: SENNOSIDES 8.6 MG TAB PO PRN (19:34)
[2023-01-15] MEDS: MEMANTINE 5 MG TAB PO SCH (21:06)
[2023-01-15] MEDS: DONEPEZIL 10 MG TAB PO SCH (21:07)
--- NOTE | 2023-01-16 03:23 | HP ---
HISTORY AND PHYSICAL SUBJECTIVE: This 87-year-old female came to the hospital for evaluation of shortness of breath, came from [facility] where she has a productive cough with worsening dyspnea. She looks cyanotic with oxygen saturation noted within the 80s. Came to EMS with palpitations, cough, congestion. HOME MEDICATIONS: 1. Tenormin 25 daily. 2. Iron sulfate 325 daily. 3. Aspirin 81 daily. 4. Senokot daily. 5. Omeprazole 40 daily. 6. Multivitamin daily. 7. Synthroid 50 mcg daily. 8. Potassium chloride 20 mEq daily. 9. Aricept 10 mg daily. 10.Namenda 5 mg b.i.d. 11.Tylenol 650 mg q.4. 12.Augmentin 875 q.12 hours. 13.Diflucan 100 mg daily. 14.DuoNeb q.i.d. ALLERGIES: Cefuroxime. REVIEW OF SYSTEMS: A 14-point review of systems is negative except for shortness of breath worsening. PAST MEDICAL HISTORY: Cancer, heart failure, COPD, dementia, GERD, thyroid disorder, hiatal hernia, metastatic breast cancer, history of MRSA and VRE. PAST SURGICAL HISTORY: Right mastectomy, right ankle fracture, bilateral cataracts. FAMILY HISTORY: Cancer in a sister, breast cancer. Mother with heart disease. PHYSICAL EXAMINATION: GENERAL: She is ill-appearing white female, thin, cachectic. LUNGS: Transmitted upper sounds, scattered rhonchi. CARDIOVASCULAR: S1, S2. HEMATOLOGY: Negative for Homans. PSYCH: Fair mood and affect. VITAL SIGNS: Temp 97.3, pulse 90 to 92, blood pressure 127 to 132 over 60s to 70s, O2 93 to 97. COPD exacerbation, tracheobronchitis, probable pneumonia. Acute hypoxemic respiratory distress. Given antibiotics, check for UTI. Check for pneumonia. Prognosis guarded. Please see further orders. MMODL / IJN: [id number] /
[2023-01-16] MEDS: LEVOTHYROXINE 50 MCG TAB PO SCH (05:57)
[2023-01-16] MEDS: MEMANTINE 5 MG TAB PO SCH ×2 (08:53→21:01)
[2023-01-16] MEDS: FLUCONAZOLE 100 MG TAB PO SCH (08:54)
[2023-01-16] MEDS: MULTIVITAMINS, THERA 1 EACH TAB PO SCH (08:55)
[2023-01-16] MEDS: PANTOPRAZOLE 40 MG TABLET PO SCH (08:55)
[2023-01-16] MEDS: ASPIRIN 81 MG PO SCH (08:55)
[2023-01-16] MEDS: atenoloL 25 MG TAB PO SCH (08:55)
[2023-01-16] MEDS: predniSONE 20 MG TAB PO SCH (08:55)
[2023-01-16] MEDS: POTASSIUM CHLORIDE ER 20 MEQ TAB.ER PO SCH (08:55)
[2023-01-16] MEDS: IPRATROPIUM-ALBUTEROL 3 ML NEB INHALATION SCH ×4 (09:47→20:02)
--- NOTE | 2023-01-16 10:36 | CT ---
EXAMINATION TYPE: CT chest wo con DATE OF EXAM: 01/16/2023 COMPARISON: 09/14/2022. Radiograph 01/15/2023 HISTORY: 87-year-old female CAP TECHNIQUE: Contiguous axial scanning of the chest without contrast. Coronal/sagittal reconstructions performed. CT DLP: 117.50mGycm. Automatic exposure control utilized for a dose reduction. FINDINGS: Heart mildly enlarged. Mild anasarca change. No pericardial effusion. Extensive three-vessel coronary artery calcifications. Ectatic aorta 3.8 cm. Ectatic ascending aorta 3.6 cm. Mild to moderate atherosclerotic arch calcifica tions and conventional arch vessel branching anatomy. Prominent dependent atelectasis in the lower lungs. Patchy and interstitial changes at the periphery of the right base similar to prior exam. Calcified granuloma posterior left base. Mild emphysematous change No obvious thoracic lymphadenopathy. Redemonstrated post surgical changes GE junction with dilated esophagus containing air-fluid level. M oderate circumferential wall thickening distal esophagus, for example, axial image 36. Mild interstitial changes throughout May BE slightly increased. Trace left pleural effusion now. Mild septal lines in the upper lungs. Visualized upper abdomen shows moderate atherosclerotic calcifications abdominal aorta. Moderate stoo l burden. Bones: Moderate to advanced degenerative disc disease visualized lower cervical spine and lower thora cic spine. IMPRESSION: 1. This is to be some underlying mild interstitial fibrosis and background mild emphysema. 2. Some septal lines in the upper lungs and trace left pleural effusion is new. Correlate for superim posed mild CHF with pulmonary vascular congestion. 3. Patchy interstitial changes at the right base remain largely unchanged from 09/14/2022. This sugges ts some underlying scarring and fibrosis. 4. Ongoing dilated esophagus with air-fluid level. There is moderate circumferential wall thickening distal esophagus and postsurgical change at the GE junction. Recommend GI referral if no established diagnosis. Given the pulmonary changes, achalasia and NSIP are in the differential. Recurrent hiatal hernia with significant esophageal dysmotility versus severe gastroesophageal reflux are also differe ntial.
[2023-01-16 15:24] VITALS: BMI 18.5
[2023-01-16] MEDS: DONEPEZIL 10 MG TAB PO SCH (21:01)
[2023-01-17] MEDS: LEVOTHYROXINE 50 MCG TAB PO SCH (06:37)
[2023-01-17] MEDS: IPRATROPIUM-ALBUTEROL 3 ML NEB INHALATION SCH ×4 (09:16→20:47)
--- NOTE | 2023-01-17 09:26 | P.GSCN ---
History of Present Illness Consult date: 01/17/23 History of present illness: CHIEF COMPLAINT: Shortness of breath and cough HISTORY OF PRESENT ILLNESS: This is a 87-year-old female who presented with shortness of breath evidence of a COPD exacerbation. Patient had a computed tomography scan of the chest completed patient with ongoing dilated esophagus with air-fluid level. There is moderate circumferential wall thickening distal esophagus and post surgical changes at the GE junction. Surgical service has been consulted for EGD. Patient's last EGD was in August 2022 with evidence of hiatal hernia and reflux. Patient has surgical history of Hudson fundoplication in May 2017. Also history of cholecystectomy in July 2022. Patient is lying in bed comfortably. She is pleasantly confused. No vomiting reported. Denies any abdominal pain. Denies any acid reflux. Patient is not on any blood thinners. 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 MEDICATIONS: See below ALLERGIES: See below SOCIAL HISTORY: No illicit drug use. REVIEW OF SYSTEMS: CONSTITUTIONAL: Denies fever or chills. HEENT: Denies blurred vision, vision changes, or eye pain. Denies hemoptysis CARDIOVASCULAR: Denies chest pain or pressure. RESPIRATORY: No shortness of breath. GASTROINTESTINAL: See HPI for pertinent findings HEMATOLOGIC: Denies bleeding disorders. GENITOURINARY: Denies any blood in urine or increased urinary frequency. SKIN: Denies pruitis. Denies rash. PHYSICAL EXAM: VITAL SIGNS: Reviewed GENERAL: Well-developed in no acute distress. HEENT: No sclera icterus. Extraocular movements grossly intact. Moist buccal mucosa. Head is atraumatic, normocephalic. No nasal drainage. ABDOMEN: Soft. Nondistended. Nontender NEUROLOGIC: awake. Alert and orientated to name only LABORATORY DATA: WBC 9.4 Hgb 9.9 and platelets 302 INR 0.9 Sodium 139 potassium 4.4 creatinine 0.61 Lactic acid 1.9 IMAGING: computed tomography scan of chest reports there is underlying mild interstitial fibrosis and background mild emphysema. Trace pleural effusion is new. Correlate for superimposed mild CHF with pulmonary vascular congestion. Patchy interstitial changes at the right base remain large unchanged from 09/14/2022. Underlying scarring and fibrosis. Ongoing dilated esophagus with air fluid level. There is moderate circumferential wall thickening distal esophagus and postsurgical changes at the GE junction. Given pulmonary changes, achalasia and tendinitis IP are in the differential. Recurrent hiatal hernia with significant esophageal dysmotility versus severe GERD are also in the differential. ASSESSMENT: 1. Dilated esophagus with air-fluid level and moderate circumferential wall thickening of the distal esophagus noted on computed tomography scan 2. History of hiatal hernia 3. History of GERD 4. History of Hudson fundoplication in May 2017 5. History of cholecystectomy PLAN: -Patient scheduled for EGD today with Dr. baeza -Keep patient nothing by mouth -Continue supportive care Physician [employer] Worker note has been reviewed by physician. Signing provider agrees with the documented findings, assessment, and plan of care. 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 Past Anesthesia/Blood Transfusion Reactions: No Reported Reaction Past Psychological History: No Psychological Hx Reported Additional Psychological History / Comment(s): Pt resides at [facility] in [place]. She is non-ambulatory and needs assistance when eating per pt's daughter. Smoking Status: Unknown if ever smoked Past Alcohol Use History: None Reported Past Drug Use History: None Reported - Past Family History Father Additional Family Medical History / Comment(s): heart disease. Mother Additional Family Medical History / Comment(s): heart disease. Sister(s) Family Medical History: Cancer Additional Family Medical History / Comment(s): 3 SISTERS WITH BREAST CA Medications and Allergies Home Medications Medication Instructions Recorded Confirmed Type Levothyroxine Sodium [Synthroid] 50 mcg PO DAILY@0800 04/01/17 01/15/23 History Multivitamins, Thera [Multivitamin 1 tab PO DAILY@0800 11/02/19 01/15/23 History (formulary)] Omeprazole 40 mg PO DAILY@0800 11/02/19 01/15/23 History Sennosides [Senokot] 8.6 mg PO DAILY PRN 05/25/22 01/15/23 History Aspirin EC [Ecotrin Low Dose] 81 mg PO DAILY@0800 06/15/22 01/15/23 History atenoloL [Tenormin] 25 mg PO DAILY@0800 09/13/22 01/15/23 History Ipratropium-Albuterol Nebulize 3 ml INHALATION RT-QID 30 Days 09/28/22 01/15/23 Rx [Duoneb 0.5 mg-3 mg/3 ml Soln] #120 each Donepezil [Aricept] 10 mg PO HS@199901/15/23 01/15/23 History Fluconazole [Diflucan] 100 mg PO DAILY@0801/15/23 01/15/23 History Memantine [Namenda] 5 mg PO BID@01/15/23 01/15/23 History Menthol-Zinc Oxide Oint 1 applic TOPICAL QID PRN 01/15/23 01/15/23 History [Calmoseptine Ointment] Nystatin 100,000Unit/gm Cream 1 applic TOPICAL TID PRN 01/15/23 01/15/23 History [Mycostatin Cream] Potassium Chloride ER [K-Dur 20] 20 meq PO DAILY@0800 01/15/23 01/15/23 History Allergies Allergy/AdvReac Type Severity Reaction Status Date / Time cefuroxime Allergy Intermediate Hives Verified 01/15/23 07:13 Surgical - Exam Vital Signs Temp Pulse Resp BP Pulse Ox 97.8 F 90 16 127/62 93 L 01/15/23 02:23 01/15/23 02:23 01/15/23 02:23 01/15/23 02:23 01/15/23 02:23 Results - Labs 01/15/23 02:59 01/15/23 02:59 Microbiology - Last 24 Hours (Table) 01/15/23 02:59 Blood Culture - Preliminary Blood
[2023-01-17] MEDS: ASPIRIN 81 MG PO SCH (09:27)
[2023-01-17] MEDS: PANTOPRAZOLE 40 MG TABLET PO SCH ×2 (09:27→21:32)
[2023-01-17] MEDS: MULTIVITAMINS, THERA 1 EACH TAB PO SCH (09:27)
[2023-01-17] MEDS: atenoloL 25 MG TAB PO SCH (09:27)
[2023-01-17] MEDS: POTASSIUM CHLORIDE ER 20 MEQ TAB.ER PO SCH (09:27)
[2023-01-17] MEDS: predniSONE 20 MG TAB PO SCH (09:27)
[2023-01-17] MEDS: MEMANTINE 5 MG TAB PO SCH ×2 (09:28→21:32)
[2023-01-17] MEDS: FLUCONAZOLE 100 MG TAB PO SCH (09:28)
--- NOTE | 2023-01-17 10:26 | P.CONS ---
History of Present Illness - Reason for Consult Consult date: 01/17/23 Esophageal dilation Requesting physician: Victor Hugo Zhong - Chief Complaint Shortness of breath - History of Present Illness This is a pleasant 87-year-old female who presented to the emergency department with complaints of shortness of breath and difficulty breathing. Patient resides in a assisted and was noted that she sounded wet in her lungs and had a minimally productive cough. Oxygen saturation was in the 80s so EMS was called and patient was brought in for further evaluation. She has a past medical history including heart failure, COPD, dementia, GERD, thyroid disorder, hiatal hernia, metastatic breast cancer, and bone cancer. She does have a history of estrella fundoplication in May 2017. As part of her workup she had a chest CAT scan which reported ongoing dilated esophagus with air-fluid level. Moderate circumferential wall thickening distal esophagus and postsurgical change at the GE junction. Gastroenterology was consulted in regards to esophageal dilation. Patient denies any difficulty swallowing, she denies any nausea or vomiting, denies abdominal pain, states her bowel movements are normal. She denies taking any PPIs. Appears that she had similar findings in August of this year and was seen by general surgery. Dr. Cnode did an EGD on 09/20/2022 with findings of hiatal hernia, reflux disease with reported large amount of liquid in the esophagus retained food in the stomach. During that same hospitalization she had undergone an upper GI which reported reflux from stomach to esophagus and exam was terminated due to significant GERD. Patient is artery scheduled to undergo EGD today with Dr. Conde. Review of Systems REVIEW OF SYSTEMS: CARDIOPULMONARY: No chest pain, patient reports shortness of breath. Gastrointestinal: Denies any abdominal pain. No difficulty swallowing. No kun gestion. No nausea or vomiting. No hematemesis, coffee-ground emesis. No rectal bleeding, or melena. GENITOURINARY: No dysuria or hematuria. MUSCULOSKELETAL: Reports normal range of motion., Joint pain. SKIN: No rashes. No jaundice. ENDOCRINE: No chills, fevers. No excessive weight gain or loss. No polydipsia or polyuria. PSYCHIATRIC: Unremarkable. NEUROLOGY: No change in mental status. Denies dizziness, headache. ENT: Vision unremarkable. CONSTITUTIONAL: No recent weight loss. No fever, chills, night sweats. 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 Past Anesthesia/Blood Transfusion Reactions: No Reported Reaction Past Psychological History: No Psychological Hx Reported Additional Psychological History / Comment(s): Pt resides at [facility] in [place]. She is non-ambulatory and needs assistance when eating per pt's daughter. Smoking Status: Unknown if ever smoked Past Alcohol Use History: None Reported Past Drug Use History: None Reported - Past Family History Father Additional Family Medical History / Comment(s): heart disease. Mother Additional Family Medical History / Comment(s): heart disease. Sister(s) Family Medical History: Cancer Additional Family Medical History / Comment(s): 3 SISTERS WITH BREAST CA Medications and Allergies Home Medications Medication Instructions Recorded Confirmed Type Levothyroxine Sodium [Synthroid] 50 mcg PO DAILY@0800 04/01/17 01/15/23 History Multivitamins, Thera [Multivitamin 1 tab PO DAILY@0800 11/02/19 01/15/23 History (formulary)] Omeprazole 40 mg PO DAILY@0800 11/02/19 01/15/23 History Sennosides [Senokot] 8.6 mg PO DAILY PRN 05/25/22 01/15/23 History Aspirin EC [Ecotrin Low Dose] 81 mg PO DAILY@0800 06/15/22 01/15/23 History atenoloL [Tenormin] 25 mg PO DAILY@0800 09/13/22 01/15/23 History Ipratropium-Albuterol Nebulize 3 ml INHALATION RT-QID 30 Days 09/28/22 01/15/23 Rx [Duoneb 0.5 mg-3 mg/3 ml Soln] #120 each Donepezil [Aricept] 10 mg PO HS@199901/15/23 01/15/23 History Fluconazole [Diflucan] 100 mg PO DAILY@0800 01/15/23 01/15/23 History Memantine [Namenda] 5 mg PO BID@08,199901/15/23 01/15/23 History Menthol-Zinc Oxide Oint 1 applic TOPICAL QID PRN 01/15/23 01/15/23 History [Calmoseptine Ointment] Nystatin 100,000Unit/gm Cream 1 applic TOPICAL TID PRN 01/15/23 01/15/23 History [Mycostatin Cream] Potassium Chloride ER [K-Dur 20] 20 meq PO DAILY@0800 01/15/23 01/15/23 History Allergies Allergy/AdvReac Type Severity Reaction Status Date / Time cefuroxime Allergy Intermediate Hives Verified 01/15/23 07:13 Physical Exam Vitals: Vital Signs Temp Pulse Pulse Resp BP Pulse Ox 01/17/23 07:00 97.9 F 71 16 141/54 99 01/17/23 05:04 97.7 F 70 17 145/57 98 01/16/23 20:09 98.4 F 100 16 133/64 97 01/16/23 20:02 76 01/16/23 16:16 76 01/16/23 16:07 73 01/16/23 15:00 98.3 F 86 17 119/70 98 01/16/23 14:00 15 01/16/23 12:22 90 01/16/23 12:12 87 01/16/23 10:02 85 01/16/23 09:49 98 01/16/23 09:47 83 Intake and Output 01/16/23 01/17/23 01/17/23 22:59 06:59 14:59 Intake Total 590 Output Total 200 Balance 390 Intake: Oral 590 Output: Urine 200 Other: # Voids 2 # Bowel Movements 1 1 Weight 44.452 kg General appearance: The patient is alert, oriented, appears in no acute distress. HET: Head is normocephalic and atraumatic. Conjunctiva pink. Sclera anicteric. Neck: Supple without lymphadenopathy. Trachea midline. Heart: Regular. Lungs: Equal expansion, normal respiratory effort. Abdomen: Soft, nontender, nondistended. No guarding or rigidity. Skin: No rashes. No jaundice. Extremities: Normal skin color and turgor. No pedal edema. Neurological: No focal deficits. Alert and oriented. Results CBC & Chem 7: 01/15/23 02:59 01/15/23 02:59 Labs: Microbiology - Last 24 Hours (Table) 01/15/23 02:59 Blood Culture - Preliminary Blood Comments: Chest CAT scan: This is to be some underlying mild interstitial fibrosis in background mild emphysema. Some septal lines in the upper lungs and trace left pleural effusion is new. Correlate for superimposed mild CHF with pulmonary vascular congestion. Patchy interstitial changes at the right base remain largely unchanged from 09/14/2022. This suggests some underlying scarring and fibrosis. Ongoing dilated esophagus with air-fluid level. There is moderate circumferential wall thickening distal esophagus and postsurgical change at the GE junction. Recommend GI referral if no established diagnosis. Given the pulmonary changes, achalasia and an FIP are in the differential. Recurrent hiatal hernia with significant esophageal dysmotility versus severe gastro- esophageal reflux are also differential. CT scan - chest: report reviewed Assessment and Plan (1) Esophageal dilatation Narrative/Plan: 87-year-old female with a history of hiatal hernia, GERD, and esophageal dilation came in for shortness of breath. She had a CT of the chest showing dilated esophagus with air-fluid level. She has had history of Estrella fundoplication in 2018. She was recently seen in August by Dr. Conde and underwent EGD with findings of a large amount of fluid in the esophagus and retained debris in the stomach with hiatal hernia noted. Both gastroenterology and general surgery were put on consult. Patient arteries seen and scheduled by general surgery to undergo upper endoscopy today. Due to patient's surgical history and known to Dr. Conde will defer workup to general surgery. We will be available if further needed. Current Visit: Yes Status: Acute Code(s): K22.89 - OTHER SPECIFIED DISEASE OF ESOPHAGUS SNOMED Code(s): 96713663 (2) Hiatal hernia with gastroesophageal reflux Current Visit: Yes Status: Acute Code(s): K44.9 - DIAPHRAGMATIC HERNIA WIT HOUT OBSTRUCTION OR GANGRENE; K21.9 - GASTRO-ESOPHAGEAL REFLUX DISEASE WITHOUT ESOPHAGITIS SNOMED Code(s): 085811433 (3) History of Estrella fundoplication Current Visit: Yes Status: Acute Code(s): Z98.890 - OTHER SPECIFIED POSTPROCEDURAL STATES SNOMED Code(s): 733372304 (4) Shortness of breath Current Visit: Yes Status: Acute Code(s): R06.02 - SHORTNESS OF BREATH SNOMED Code(s): 221577477 (5) GERD (gastroesophageal reflux disease) Current Visit: No Status: Acute Code(s): K21.9 - GASTRO-ESOPHAGEAL REFLUX DISEASE WITHOUT ESOPHAGITIS SNOMED Code(s): 777157800 Plan: 1. Continue symptomatic and supportive care 2. Recommend reflux measures 3. Recommend Protonix 40 mg daily 4. Patient is scheduled to undergo EGD with general surgery, patient known to Dr. Conde with a history of recent fundoplication. Will defer further workup to general surgery. 5. Gastroenterology will be on standby if further needed. Thank you for this consultation, again we will be on standby please reach out to our service if further needed.
[2023-01-17] MEDS ORDERED: LACTATED RINGERS 1,000 ML IV ONE (10:29)
[2023-01-17] MEDS ORDERED: PROPOFOL 10 MG/ML 20 ML VIAL IV ONE (10:31)
--- NOTE | 2023-01-17 10:40 | P.OP ---
Date of Procedure: 01/17/23 Preoperative Diagnosis: GERD Postoperative Diagnosis: Antral gastritis Hiatal hernia Esophagitis Procedure(s) Performed: EGD Anesthesia: MAC Surgeon: Sorin Conde Pathology: other (Antrum, esophagus) Condition: stable Disposition: PACU Description of Procedure: Patient's placed on the endoscopy table in the lateral position. She received IV sedation. The gastro-/oropharynx passed in the esophagus and stomach. Scope placement pylorus. The first and second portion duodenum appeared normal. Sco pe was then brought back the antrum this appeared inflamed. A biopsies performed. Scope was unretroflexed patient had a small to moderate hiatal hernia. The GE junction was at 38 cm. The distal esophagus appeared inflamed. This area is biopsied. Proximal esophagus appeared normal. Scope withdrawn for patient.
[2023-01-17] MEDS: DONEPEZIL 10 MG TAB PO SCH (21:32)
[2023-01-18] MEDS: LEVOTHYROXINE 50 MCG TAB PO SCH (06:33)
[2023-01-18 08:59] LABS: Basophils # (A) 0.03 X 10*3/uL (0.00-0.10); Basophils % (A) 0.4 %; Eosinophils # (A) 0.14 X 10*3/uL (0.04-0.35); Eosinophils % (A) 1.7 %; HCT 29.6 % (37.2-46.3); HGB 9.2 d/dL (12.0-15.0); Lymphocytes # (A) 2.26 X 10*3/uL (0.90-5.00); Lymphocytes % (A) 27.6 %; MCH 26.4 pg (27.0-32.0); MCHC 31.1 d/dL (32.0-37.0); MCV 84.8 FL (80.0-97.0); Mean Platelet Volume 9.6 FL (9.5-12.2); Monocytes # (A) 0.87 X 10*3/uL (0.20-1.00); Monocytes % (A) 10.6 %; NRBC Per 100 WBC 0 X 10*3/uL (0.00-0.01); Neutrophils # (A) 4.71 X 10*3/uL (1.80-7.70); Neutrophils % (A) 57.6 %; Platelet Count 283 X 10*3/uL (140-440); RBC 3.49 X 10*6/uL (4.10-5.20); RDW 15.4 % (11.5-14.5); WBC 8.18 X 10*3/uL (4.50-10.00)
[2023-01-18] MEDS: IPRATROPIUM-ALBUTEROL 3 ML NEB INHALATION SCH ×4 (09:14→21:14)
[2023-01-18 09:16] LABS: ALT 10 U/L (8-44); AST 11 U/L (13-35); Albumin 3.3 d/dL (3.8-4.9); Albumin/Globulin Ratio 1.14 Ratio (1.60-3.17); Alkaline Phosphatase 85 U/L (41-126); BUN/Creat Ratio 31.57 Ratio (12.00-20.00); Blood Urea Nitrogen 22.1 mg/dL (9.0-27.0); Calcium 8.5 mg/dL (8.7-10.3); Carbon Dioxide 23.6 mmol/L (21.6-31.8); Chloride 108 mmol/L (96-109); Globulin 2.9 d/dL (1.6-3.3); Glucose 88 mg/dL (70-110); Potassium 4.2 mmol/L (3.5-5.5); Sodium 140 mmol/L (135-145); Total Bilirubin <0.2 mg/dL (0.3-1.2); Total Protein 6.2 d/dL (6.2-8.2)
[2023-01-18] MEDS: MULTIVITAMINS, THERA 1 EACH TAB PO SCH (09:17)
[2023-01-18] MEDS: MEMANTINE 5 MG TAB PO SCH ×2 (09:17→21:49)
[2023-01-18] MEDS: FLUCONAZOLE 100 MG TAB PO SCH (09:17)
[2023-01-18] MEDS: predniSONE 20 MG TAB PO SCH (09:17)
[2023-01-18] MEDS: POTASSIUM CHLORIDE ER 20 MEQ TAB.ER PO SCH (09:17)
[2023-01-18] MEDS: ASPIRIN 81 MG PO SCH (09:17)
[2023-01-18] MEDS: atenoloL 25 MG TAB PO SCH (09:18)
[2023-01-18] MEDS: PANTOPRAZOLE 40 MG TABLET PO SCH ×2 (09:20→17:35)
--- NOTE | 2023-01-18 09:24 | CA ---
Transthoracic Echo Report Name: Emely Whiting Age: 87 Gender: F : 1935 Exam Date: 01/18/2023 07:52 Exam Location: [facility] Ht (in): 61 Wt (lb): 98 Ordering Physician: Victor Hugo Zhong MD Attending/Referring Phys: Psychology Associate Stephanie Burgess RDCS Procedure CPT: Indications: chf Cardiac Hx: Technical Quality: Good Contrast 1: Total Dose (mL): Contrast 2: Total Dose (mL): MEASUREMENTS (Male / Female) Normal Values 2D ECHO LV Diastolic Diameter PLAX 3.8 cm 4.2 - 5.9 / 3.9 - 5.3 cm LV Systolic Diameter PLAX 3.0 cm IVS Diastolic Thickness 1.1 cm 0.6 - 1.0 / 0.6 - 0.9 cm LVPW Diastolic Thickness 1.0 cm 0.6 - 1.0 / 0.6 - 0.9 cm LV Relative Wall Thickness 0.6 RV Internal Dim ED PLAX 3.1 cm LA Systolic Diameter LX 3.3 cm 3.0 - 4.0 / 2.7 - 3.8 cm LV Diastolic Volume MOD 4C 76.5 cm??? LV Systolic Volume MOD 4C 37.7 cm??? LV Ejection Fraction MOD 4C 50.7 % LV Cardiac Index MOD 4C 2056.7 cm???/min???m??? LV Diastolic Length 4C 7.6 cm LV Systolic Length 4C 6.2 cm LV Diastolic Volume MOD 2C 44.4 cm??? LV Systolic Volume MOD 2C 26.1 cm??? LV Ejection Fraction MOD 2C 41.3 % LV Cardiac Index MOD 2C 972.2 cm???/min???m??? LV Diastolic Length 2C 7.4 cm LV Systolic Length 2C 6.7 cm LA Volume 50.1 cm??? 18 - 58 / 22 - 52 cm??? LA Volume Index 36.4 cm???/m??? 16 - 28 cm???/m??? M-MODE Aortic Root Diameter MM 3.7 cm MV E Point Septal Separation 1.6 cm AV Cusp Separation MM 1.9 cm DOPPLER AV Peak Velocity 92.1 cm/s AV Peak Gradient 3.4 mmHg AI Peak Velocity 343.2 cm/s AI Peak Gradient 47.1 mmHg AI Pressure Half Time 579.0 ms MV Area PHT 2.5 cm??? Mitral E Point Velocity 142.9 cm/s Mitral A Point Velocity 127.8 cm/s Mitral E to A Ratio 1.1 MV Deceleration Time 307.0 ms MV E' Velocity 5.8 cm/s Mitral E to MV E' Ratio 24.5 TR Peak Velocity 289.3 cm/s TR Peak Gradient 33.5 mmHg Right Ventricular Systolic Press 37.7 mmHg FINDINGS Left Ventricle Left ventricular ejection fraction is estimated at 50-55 %. Small left ventricular cavity. Mildly increased septal wall thickness. Mildly increased posterior wall thickness. Right Ventricle Normal right ventricular size. Mild pulmonary hypertension. Right Atrium Normal right atrial size. Left Atrium Moderately increased left atrial volume. Mitral Valve Mild thickening/calcification of the anterior mitral valve leaflet. Mild mitral regurgitation. Aortic Valve Trileaflet aortic valve. Thickened aortic valve without stenosis. Mild aortic regurgitation. Tricuspid Valve Structurally normal tricuspid valve. Mild tricuspid regurgitation. Pulmonic Valve Structurally normal pulmonic valve. Trace to mild pulmonic regurgitation. Pericardium No pericardial effusion. Aorta Normal size aortic root and proximal ascending aorta. CONCLUSIONS LVH with left ventricular ejection fraction in the low limits of normal Mild septal hypokinesis Mitral regurgitation with 2 separate jets, [id number] Previewed by: Dr. Alex Craig MD (Electronically Signed) Final Date: 18 January 2023 09:23
--- NOTE | 2023-01-18 11:38 | P.PN ---
Subjective Progress Note Date: 01/18/23 Principal diagnosis: Esophageal dilation seen on computed tomography scan This is a pleasant 87-year-old female who presented to the emergency department with complaints of shortness of breath and difficulty breathing. Patient resides in a [facility] and was noted that she sounded wet in her lungs and had a minimally productive cough. Oxygen saturation was in the 80s so EMS was called and patient was brought in for further evaluation. She has a past medical history including heart failure, COPD, dementia, GERD, thyroid disorder, hiatal hernia, metastatic breast cancer, and bone cancer. She does have a history of estrella fundoplication in May 2017. As part of her workup she had a chest CAT scan which reported ongoing dilated esophagus with air-fluid level. Moderate circumferential wall thickening distal esophagus and postsurgical change at the GE junction. Gastroenterology was consulted in regards to esophageal dilation. Patient denies any difficulty swallowing, she denies any nausea or vomiting, denies abdominal pain, states her bowel movements are normal. She denies taking any PPIs. Appears that she had similar findings in August of this year and was seen by general surgery. Dr. Conde did an EGD on 09/20/2022 with findings of hiatal hernia, reflux disease with reported large amount of liquid in the esophagus retained food in the stomach. During that same hospitalization she had undergone an upper GI which reported reflux from stomach to esophagus and exam was terminated due to significant GERD. Patient is artery scheduled to undergo EGD today with Dr. Conde. 01/18/2023 Patient seen and examined today as a follow-up. She she was undergoing echocardiogram. Patient denies any abdominal pain, nausea, or vomiting. No difficulty swallowing. She underwent EGD yesterday with Dr. Conde with findings of antral gastritis, hiatal hernia, and esophagitis. Objective - Vital Signs Vital signs: Vital Signs Temp 98.5 F 01/18/23 07:00 Pulse 71 01/18/23 09:25 Resp 19 01/18/23 07:00 BP 155/72 01/18/23 07:00 Pulse Ox 98 01/18/23 09:17 FiO2 Intake & Output 01/17/23 01/18/23 01/18/23 18:59 06:59 18:59 Intake Total 320 Output Total 250 Balance 70 Intake: IV 200 Oral 120 Output: Urine 250 Other: Voiding Method External Catheter External Catheter # Bowel Movements 1 - Exam General appearance: The patient is alert, oriented, appears in no acute distress. HET: Head is normocephalic and atraumatic. Conjunctiva pink. Sclera anicteric. Neck: Supple without lymphadenopathy. Abdomen: Soft, nontender, nondistended with bowel sounds. No guarding or rigidity. Extremities: Normal skin color and turgor. No pedal edema Skin: No rashes, no jaundice Neurological: No focal deficits. Alert and oriented. - Labs CBC & Chem 7: 01/18/23 05:45 01/18/23 05:45 Labs: Abnormal Lab Results - Last 24 Hours (Table) 01/18/23 01/18/23 Range/Units 05:45 05:45 RBC 3.49 L (4.10-5.20) X 10*6/uL Hgb 9.2 L (12.0-15.0) d/dL Hct 29.6 L (37.2-46.3) % MCH 26.4 L (27.0-32.0) pg MCHC 31.1 L (32.0-37.0) d/dL RDW 15.4 H (11.5-14.5) % BUN/Creatinine Ratio 31.57 H (12.00-20.00) Ratio Calcium 8.5 L (8.7-10.3) mg/dL Total Bilirubin <0.2 L (0.3-1.2) mg/dL AST 11 L (13-35) U/L Albumin 3.3 L (3.8-4.9) d/dL Albumin/Globulin Ratio 1.14 L (1.60-3.17) Ratio Microbiology - Last 24 Hours (Table) 01/15/23 02:59 Blood Culture Gram Stain - Preliminary Blood Blood Culture - Preliminary Coagulase Negative Staph Assessment and Plan (1) Esophageal dilatation Narrative/Plan: 87-year-old female with a history of hiatal hernia, GERD, and esophageal dilation came in for shortness of breath. She had a CT of the chest showing dilated esophagus with air-fluid level. She has had history of Estrella fundoplication in 2018. She was recently seen in August by Dr. Conde and underwent EGD with findings of a large amount of fluid in the esophagus and retained debris in the stomach with hiatal hernia noted. Both gastroenterology and general surgery were put on consult. Patient arteries seen and scheduled by general surgery to undergo upper endoscopy today. Due to patient's surgical history and known to Dr. Conde will defer workup to general surgery. We will be available if further needed. Patient is status post EGD with general surgery with findings of antral gastritis, hiatal hernia, and esophagitis. Patient to follow-up with general surgery Dr. Conde. Current Visit: Yes Status: Acute Code(s): K22.89 - OTHER SPECIFIED DISEASE OF ESOPHAGUS SNOMED Code(s): 52749820 (2) Hiatal hernia with gastroesophageal reflux Current Visit: Yes Status: Acute Code(s): K44.9 - DIAPHRAGMATIC HERNIA WITHOUT OBSTRUCTION OR GANGRENE; K21.9 - GASTRO-ESOPHAGEAL REFLUX DISEASE WITHOUT ESOPHAGITIS SNOMED Code(s): 911032195 (3) History of Estrella fundoplication Current Visit: Yes Status: Acute Code(s): Z98.890 - OTHER SPECIFIED POSTPROCEDURAL STATES SNOMED Code(s): 785287035 (4) Shortness of breath Current Visit: Yes Status: Acute Code(s): R06.02 - SHORTNESS OF BREATH SNOMED Code(s): 972484387 (5) GERD (gastroesophageal reflux disease) Current Visit: No Status: Acute Code(s): K21.9 - GASTRO-ESOPHAGEAL REFLUX DISEASE WITHOUT ESOPHAGITIS SNOMED Code(s): 049433352 Plan: 1. Continue symptomatic and supportive care 2. Recommend reflux measures 3. Recommend Protonix 40 mg daily 4. Status post EGD with Dr. Conde 5. Continue with further recommendations from general surgery Thank you for this consultation, we will sign off at this time. Dr. Sarahy Simons I agree with the dictator's note, documented as a scribe by Katia Flores.
--- NOTE | 2023-01-18 13:37 | P.PN ---
Subjective Progress Note Date: 01/18/23 CHIEF COMPLAINT: Esophageal dilatation HISTORY OF PRESENT ILLNESS: Patient is status post EGD revealing antral gastritis, hiatal hernia and esophagitis. Patient sitting up in bed comfortably. Reports no difficulty swallowing. Tolerating regular diet. Afebrile. WBC 8.18 Hgb 9.2 PHYSICAL EXAM: VITAL SIGNS: Reviewed. GENERAL: Well-developed in no acute distress. ABDOMEN: Soft. Nondistended. Nontender. NEUROLOGIC: Pleasantly confused ASSESSMENT: 1. Esophageal dilatation noted on CT. Status post EGD revealing antral gastritis, hilar hernia and esophagitis 2. Prior history of Hudson fundoplication PLAN: -Patient can be discharged from surgical standpoint when medically cleared -Continue PPI -Recommend anti-reflux measures Physician Fabricating Machine Operator note has been reviewed by physician. Signing provider agrees with the documented findings, assessment, and plan of care. Objective - Vital Signs Vital signs: Vital Signs Temp 98.5 F 01/18/23 07:00 Pulse 76 01/18/23 12:05 Resp 19 01/18/23 07:00 BP 155/72 01/18/23 07:00 Pulse Ox 98 01/18/23 09:17 FiO2 Intake & Output 01/17/23 01/18/23 01/18/23 18:59 06:59 18:59 Intake Total 320 Output Total 250 Balance 70 Intake: IV 200 Oral 120 Output: Urine 250 Other: Voiding Method External Catheter External Catheter # Bowel Movements 1 - Labs CBC & Chem 7: 01/18/23 05:45 01/18/23 05:45 Labs: Abnormal Lab Results - Last 24 Hours (Table) 01/18/23 01/18/23 Range/Units 05:45 05:45 RBC 3.49 L (4.10-5.20) X 10*6/uL Hgb 9.2 L (12.0-15.0) d/dL Hct 29.6 L (37.2-46.3) % MCH 26.4 L (27.0-32.0) pg MCHC 31.1 L (32.0-37.0) d/dL RDW 15.4 H (11.5-14.5) % BUN/Creatinine Ratio 31.57 H (12.00-20.00) Ratio Calcium 8.5 L (8.7-10.3) mg/dL Total Bilirubin <0.2 L (0.3-1.2) mg/dL AST 11 L (13-35) U/L Albumin 3.3 L (3.8-4.9) d/dL Albumin/Globulin Ratio 1.14 L (1.60-3.17) Ratio Microbiology - Last 24 Hours (Table) 01/15/23 02:59 Blood Culture Gram Stain - Preliminary Blood Blood Culture - Preliminary Coagulase Negative Staph
[2023-01-18] MEDS: DONEPEZIL 10 MG TAB PO SCH (21:49)
[2023-01-19] MEDS: LEVOTHYROXINE 50 MCG TAB PO SCH (06:28)
[2023-01-19] MEDS: PANTOPRAZOLE 40 MG TABLET PO SCH ×2 (06:28→17:53)
[2023-01-19] MEDS: POTASSIUM CHLORIDE ER 20 MEQ TAB.ER PO SCH (08:55)
[2023-01-19] MEDS: FLUCONAZOLE 100 MG TAB PO SCH (08:55)
[2023-01-19] MEDS: MULTIVITAMINS, THERA 1 EACH TAB PO SCH (08:55)
[2023-01-19] MEDS: ASPIRIN 81 MG PO SCH (08:55)
[2023-01-19] MEDS: predniSONE 20 MG TAB PO SCH (08:55)
[2023-01-19] MEDS: atenoloL 25 MG TAB PO SCH (08:55)
[2023-01-19] MEDS: MEMANTINE 5 MG TAB PO SCH ×2 (08:55→20:09)
[2023-01-19] MEDS: IPRATROPIUM-ALBUTEROL 3 ML NEB INHALATION SCH ×4 (09:14→20:40)
--- NOTE | 2023-01-19 13:42 | P.PN ---
Subjective Patient seen and evaluated bedside. No overnight events no new complaints Objective - Vital Signs Vital signs: Vital Signs Temp 97.8 F 01/19/23 07:00 Pulse 84 01/19/23 09:25 Resp 16 01/19/23 07:00 BP 161/81 01/19/23 07:00 Pulse Ox 99 01/19/23 09:14 FiO2 Intake & Output 01/18/23 01/19/23 01/19/23 18:59 06:59 18:59 Intake Total 210 180 Output Total 750 750 Balance -750 -540 180 Intake: Oral 210 180 Output: Urine 750 750 Other: Voiding Method External Catheter External Catheter External Catheter # Bowel Movements 1 - Exam General no acute distress Cardiovascular regular rate and rhythm Pulmonary nonlabored breathing Abdomen soft nontender nondistended no guarding rebound tenderness - Labs CBC & Chem 7: 01/18/23 05:45 01/18/23 05:45 Labs: Microbiology - Last 24 Hours (Table) 01/15/23 02:59 Blood Culture Gram Stain - Preliminary Blood Blood Culture - Preliminary Coagulase Negative Staph Assessment and Plan Assessment: 87 year female status post EGD Ryan gastritis, hiatal hernia, esophagitis No plan for intervention at this time Tolerating a diet stable for DC from a surgical standpoint
[2023-01-19] MEDS ORDERED: DAPTOmycin 350 MG in SODIUM CHLORIDE 0.9% 50 ML IVPB SCH (14:00)
[2023-01-19] MEDS ORDERED: AZTREONAM 2 GM in SODIUM CHLORIDE 0.9% 100 ML IVPB SCH (16:00)
[2023-01-19] MEDS: DONEPEZIL 10 MG TAB PO SCH (20:09)
--- NOTE | 2023-01-19 21:50 | P.CONS ---
History of Present Illness - Reason for Consult Consult date: 01/19/23 - History of Present Illness Patient is a 87-year-old female with a past medical history significant for dementia heart failure reflux history of recurrent urinary tract infection patient presented to the hospital about 5 days ago for evaluation of shortness of breath apparently patient was noticed to have a mild productive cough and O2 sats of 80% on room air patient did have a CT of the chest which shows dilated esophagus with air-fluid level moderate circumferential wall thickening distal esophagus and postsurgical changes at the GE junction patient has been evaluated by general surgery in this patient who is status post EGD the patient has been afebrile during this hospital stay did have mild hypoxia initially however currently 98% on room air patient did have a normal white count kidney function has been normal liver exams are normal influenza RSV and COVID testing was negative patient did have blood culture drawn which came back positive the coagulase-negative staph infectious disease was consulted today because of the positive blood culture patient is currently on Azactam and Diflucan, patient on my evaluation was afebrile she was breathing comfortably on room air patient was drinking Ensure and did have a sitter at the bedside who did mention patient did eat some of her lunch without any difficulty did not notice any choking or coughing spells patient denies any abdominal pain no ho rrhea has been reported Past Medical History Past Medical History: Cancer, Heart Failure, COPD, Dementia, GERD/Reflux, Thyroid Disorder Additional Past Medical History / Comment(s): HIATAL HERNIA, metastatic breast ca, bone cancer(thoracic spine), 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 Past Anesthesia/Blood Transfusion Reactions: No Reported Reaction Past Psychological History: No Psychological Hx Reported Additional Psychological History / Comment(s): Pt resides at [facility] in [place]. She is non-ambulatory and needs assistance when eating per pt's daughter. Smoking Status: Unknown if ever smoked Past Alcohol Use History: None Reported Past Drug Use History: None Reported - Past Family History Father Additional Family Medical History / Comment(s): heart disease. Mother Additional Family Medical History / Comment(s): heart disease. Sister(s) Family Medical History: Cancer Additional Family Medical History / Comment(s): 3 SISTERS WITH BREAST CA Medications and Allergies Home Medications Medication Instructions Recorded Confirmed Type Levothyroxine Sodium [Synthroid] 50 mcg PO DAILY@0800 04/01/17 01/15/23 History Multivitamins, Thera [Multivitamin 1 tab PO DAILY@0800 11/02/19 01/15/23 History (formulary)] Omeprazole 40 mg PO DAILY@0800 11/02/19 01/15/23 History Sennosides [Senokot] 8.6 mg PO DAILY PRN 05/25/22 01/15/23 History Aspirin EC [Ecotrin Low Dose] 81 mg PO DAILY@0800 06/15/22 01/15/23 History atenoloL [Tenormin] 25 mg PO DAILY@0800 09/13/22 01/15/23 History Ipratropium-Albuterol Nebulize 3 ml INHALATION RT-QID 30 Days 09/28/22 01/15/23 Rx [Duoneb 0.5 mg-3 mg/3 ml Soln] #120 each Donepezil [Aricept] 10 mg PO HS@199901/15/23 01/15/23 History Fluconazole [Diflucan] 100 mg PO DAILY@0800 01/15/23 01/15/23 History Memantine [Namenda] 5 mg PO BID@08,199901/15/23 01/15/23 History Menthol-Zinc Oxide Oint 1 applic TOPICAL QID PRN 01/15/23 01/15/23 History [Calmoseptine Ointment] Nystatin 100,000Unit/gm Cream 1 applic TOPICAL TID PRN 01/15/23 01/15/23 History [Mycostatin Cream] Potassium Chloride ER [K-Dur 20] 20 meq PO DAILY@0800 01/15/23 01/15/23 History Allergies Allergy/AdvReac Type Severity Reaction Status Date / Time cefuroxime Allergy Intermediate Hives Verified 01/15/23 07:13 Physical Exam Vitals: Vital Signs Temp Pulse Pulse Resp BP Pulse Ox 01/19/23 09:25 84 01/19/23 09:14 82 99 01/19/23 07:00 97.8 F 71 16 161/81 99 01/19/23 02:00 98.0 F 16 158/77 96 01/18/23 21:49 99 01/18/23 20:00 98.8 F 99 16 115/56 98 01/18/23 15:52 80 01/18/23 15:44 77 01/18/23 15:00 98.4 F 91 16 132/75 97 Intake and Output 01/18/23 01/19/23 01/19/23 22:59 06:59 14:59 Intake Total 210 180 Output Total 750 750 Balance -540 -750 180 Intake: Oral 210 180 Output: Urine 750 750 Other: Voiding Method External Catheter External Catheter External Catheter # Bowel Movements 1 Results CBC & Chem 7: 01/20/23 05:25 01/18/23 05:45 Labs: Microbiology - Last 24 Hours (Table) 01/15/23 02:59 Blood Culture Gram Stain - Preliminary Blood Blood Culture - Preliminary Coagulase Negative Staph Assessment and Plan Plan: 1patient with a positive blood culture with his coagulase-negative staph likely skin contamination as the patient has no clinical disease to go along with it in this patient with no fever or elevated white count 2-blood cultures will be repeated document clearance 3-discontinue Azactam and no need for vancomycin We will follow on clinical condition and cultures to further adjust medication if needed Thank you for this consultation we will follow the patient along with you Dictation was produced using [employer] dictation software. please excuse any grammatical, word or spelling errors. Time with Patient: Greater than 30
[2023-01-20] MEDS: LEVOTHYROXINE 50 MCG TAB PO SCH (06:17)
[2023-01-20] MEDS: PANTOPRAZOLE 40 MG TABLET PO SCH ×2 (06:17→18:06)
[2023-01-20] MEDS: IPRATROPIUM-ALBUTEROL 3 ML NEB INHALATION SCH ×4 (09:16→21:37)
[2023-01-20] MEDS: MULTIVITAMINS, THERA 1 EACH TAB PO SCH (09:17)
[2023-01-20] MEDS: FLUCONAZOLE 100 MG TAB PO SCH (09:17)
[2023-01-20] MEDS: ASPIRIN 81 MG PO SCH (09:17)
[2023-01-20] MEDS: MEMANTINE 5 MG TAB PO SCH ×2 (09:17→20:46)
[2023-01-20] MEDS: atenoloL 25 MG TAB PO SCH ×2 (09:17→20:46)
[2023-01-20] MEDS: POTASSIUM CHLORIDE ER 20 MEQ TAB.ER PO SCH (09:18)
--- NOTE | 2023-01-20 11:47 | P.PN ---
Subjective Progress Note Date: 01/20/23 Principal diagnosis: Nausea Patient without complaints. Tolerating some of her diet. Appetite or. No pain. Objective - Vital Signs Vital signs: Vital Signs Temp 98.1 F 01/20/23 07:00 Pulse 92 01/20/23 09:30 Resp 18 01/20/23 07:00 BP 153/69 01/20/23 07:00 Pulse Ox 95 01/20/23 07:00 FiO2 Intake & Output 01/19/23 01/20/23 01/20/23 18:59 06:59 18:59 Intake Total 360 140 Output Total 1150 Balance 360 -1150 140 Intake: Oral 360 140 Output: Urine 1150 Other: Voiding Method External Catheter External Catheter External Catheter # Bowel Movements 1 - Exam Abdomen: Soft, nontender, nondistended - Labs CBC & Chem 7: 01/18/23 05:45 01/18/23 05:45 Assessment and Plan (1) Hiatal hernia with gastroesophageal reflux Narrative/Plan: Patient doing better at this time. Continue diet. Discharge planning. Current Visit: Yes Status: Acute Code(s): K44.9 - DIAPHRAGMATIC HERNIA WITHOUT OBSTRUCTION OR GANGRENE; K21.9 - GASTRO-ESOPHAGEAL REFLUX DISEASE WITHOUT ESOPHAGITIS SNOMED Code(s): 426870748
[2023-01-20 13:26] LABS: Basophils # (A) 0.04 X 10*3/uL (0.00-0.10); Basophils % (A) 0.4 %; Eosinophils # (A) 0.01 X 10*3/uL (0.04-0.35); Eosinophils % (A) 0.1 %; HCT 32.6 % (37.2-46.3); Lymphocytes # (A) 1.93 X 10*3/uL (0.90-5.00); Lymphocytes % (A) 17.9 %; MCH 26.2 pg (27.0-32.0); MCHC 30.7 d/dL (32.0-37.0); MCV 85.6 FL (80.0-97.0); Mean Platelet Volume 9.6 FL (9.5-12.2); Monocytes # (A) 0.74 X 10*3/uL (0.20-1.00); Monocytes % (A) 6.9 %; NRBC Per 100 WBC 0 X 10*3/uL (0.00-0.01); Neutrophils # (A) 7.62 X 10*3/uL (1.80-7.70); Neutrophils % (A) 70.7 %; Platelet Count 320 X 10*3/uL (140-440); RBC 3.81 X 10*6/uL (4.10-5.20); WBC 10.77 X 10*3/uL (4.50-10.00)
--- NOTE | 2023-01-20 15:30 | P.PN ---
Subjective Progress Note Date: 01/20/23 Principal diagnosis: Bacteremia Patient is a 87-year-old female with a past medical history significant for dementia heart failure reflux history of recurrent urinary tract infection patient presented to the hospital about 5 days ago for evaluation of shortness of breath, workup which shows evidence of dilated esophagus for the patient has been evaluated both by surgery and GI services blood culture positive for staphylococcus epidermidis On today's evaluation that is 01/20/2023, the patient remains to be afebrile, the patient is breathing comfortably on room air without the need for supplemental oxygen , the patient denies chest pain or cough, patient denies na usea/vomiting or diarrhea and denies any abdominal pain Patient did have white count of 10.77, creatinine 0.7 Objective - Vital Signs Vital signs: Vital Signs Temp 98.1 F 01/20/23 13:56 Pulse 84 01/20/23 13:56 Resp 17 01/20/23 13:56 BP 115/53 01/20/23 13:56 Pulse Ox 99 01/20/23 13:56 FiO2 Intake & Output 01/19/23 01/20/23 01/20/23 18:59 06:59 18:59 Intake Total 360 140 Output Total 1150 Balance 360 -1150 140 Intake: Oral 360 140 Output: Urine 1150 Other: Voiding Method External Catheter External Catheter External Catheter # Bowel Movements 1 - Exam GENERAL DESCRIPTION: An elderly female lying in bed in no distress RESPIRATORY SYSTEM: Unlabored breathing , clear to auscultation anteriorly HEART: S1 S2 regular rate and rhythm , ABDOMEN: Soft , no tenderness EXTREMITIES: No edema feet - Labs CBC & Chem 7: 01/20/23 05:25 01/18/23 05:45 Labs: Abnormal Lab Results - Last 24 Hours (Table) 01/20/23 Range/Units 05:25 WBC 10.77 H (4.50-10.00) X 10*3/uL RBC 3.81 L (4.10-5.20) X 10*6/uL Hgb 10.0 L (12.0-15.0) d/dL Hct 32.6 L (37.2-46.3) % MCH 26.2 L (27.0-32.0) pg MCHC 30.7 L (32.0-37.0) d/dL RDW 15.0 H (11.5-14.5) % Eosinophils # 0.01 L (0.04-0.35) X 10*3/uL Microbiology - Last 24 Hours (Table) 01/15/23 02:59 Blood Culture Gram Stain - Final Blood Blood Culture - Final Staphylococcus epidermidis Assessment and Plan (1) Positive blood culture Current Visit: Yes Status: Acute Code(s): R78.81 - BACTEREMIA SNOMED Code (s): 645293925 Plan: 1patient with a positive blood culture with his coagulase-negative staph likely skin contamination as the patient has no clinical disease to go along with it in this patient with no fever or elevated white count 2-blood cultures has been be repeated document clearance 3- no need for vancomycin, the patient will be monitored closely off antibiotics Dictation was produced using [employer] dictation software. please excuse any grammatical, word or spelling errors. Time with Patient: Less than 30
[2023-01-20] MEDS: DONEPEZIL 10 MG TAB PO SCH (20:46)
--- NOTE | 2023-01-20 21:29 | PN ---
PROGRESS NOTE SUBJECTIVE: An 87-year-old white female, gram negative bacteremia, unclear etiology. OBJECTIVE: VITAL SIGNS: Blood pressure 150s over 60s, temp 98.1, pulse 92, respiratory rate 16 to 18. ASSESSMENT: Hiatal hernia with gastroesophageal reflux disease, acute on chronic anemia. Blood culture positive for coagulase-negative Staph, likely skin contamination. Elevated white count. Blood cultures repeated. Continue Azactam . The patient has a history of drug-resistant urinary tract infection. Please see further orders. Prognosis is guarded. MMODL / IJN: [id number] /
[2023-01-21] MEDS: PANTOPRAZOLE 40 MG TABLET PO SCH ×2 (05:19→18:04)
[2023-01-21] MEDS: LEVOTHYROXINE 50 MCG TAB PO SCH (05:19)
[2023-01-21] MEDS: atenoloL 25 MG TAB PO SCH ×2 (08:27→20:43)
[2023-01-21] MEDS: MULTIVITAMINS, THERA 1 EACH TAB PO SCH (08:27)
[2023-01-21] MEDS: ASPIRIN 81 MG PO SCH (08:27)
[2023-01-21] MEDS: FLUCONAZOLE 100 MG TAB PO SCH (08:28)
[2023-01-21] MEDS: POTASSIUM CHLORIDE ER 20 MEQ TAB.ER PO SCH (08:28)
[2023-01-21] MEDS: MEMANTINE 5 MG TAB PO SCH ×2 (08:28→20:33)
[2023-01-21] MEDS: IPRATROPIUM-ALBUTEROL 3 ML NEB INHALATION SCH ×4 (09:10→20:04)
--- NOTE | 2023-01-21 10:35 | P.PN ---
Subjective Progress Note Date: 01/21/23 CHIEF COMPLAINT: Esophageal dilatation HISTORY OF PRESENT ILLNESS: Patient is status post EGD revealing antral gastritis, hiatal hernia and esophagitis. Patient sitting up in bed comfortably. Patient is tolerating regular diet. No pain. Afebrile. PHYSICAL EXAM: VITAL SIGNS: Reviewed. GENERAL: Well-developed in no acute distress. ABDOMEN: Soft. Nondistended. Nontender. NEUROLOGIC: Pleasantly confused ASSESSMENT: 1. Esophageal dilatation noted on CT. Status post EGD revealing antral gastr itis, hilar hernia and esophagitis 2. Prior history of Hudson fundoplication PLAN: -Patient can be discharged from surgical standpoint when medically cleared -Continue PPI -Recommend anti-reflux measures Physician Senior Integration Architect note has been reviewed by physician. Signing provider agrees with the documented findings, assessment, and plan of care. Objective - Vital Signs Vital signs: Vital Signs Temp 98.5 F 01/21/23 07:50 Pulse 84 01/21/23 09:23 Resp 18 01/21/23 07:50 BP 109/62 01/21/23 07:50 Pulse Ox 97 01/21/23 07:50 FiO2 Intake & Output 01/20/23 01/21/23 01/21/23 18:59 06:59 18:59 Intake Total 140 118 Output Total 250 700 Balance -110 -700 118 Intake: Oral 140 118 Output: Urine 250 700 Other: Voiding Method External Catheter External Catheter # Voids 1 - Labs CBC & Chem 7: 01/20/23 05:25 01/18/23 05:45 Labs: Abnormal Lab Results - Last 24 Hours (Table) 01/20/23 Range/Units 05:25 WBC 10.77 H (4.50-10.00) X 10*3/uL RBC 3.81 L (4.10-5.20) X 10*6/uL Hgb 10.0 L (12.0-15.0) d/dL Hct 32.6 L (37.2-46.3) % MCH 26.2 L (27.0-32.0) pg MCHC 30.7 L (32.0-37.0) d/dL RDW 15.0 H (11.5-14.5) % Eosinophils # 0.01 L (0.04-0.35) X 10*3/uL Microbiology - Last 24 Hours (Table) 01/19/23 13:38 Blood Culture - Preliminary Blood 01/15/23 02:59 Blood Culture Gram Stain - Final Blood Blood Culture - Final Staphylococcus epidermidis
[2023-01-21] MEDS: DONEPEZIL 10 MG TAB PO SCH (20:33)
[2023-01-22] MEDS: AZTREONAM 1 GM in SODIUM CHLORIDE 0.9% 50 ML IVPB SCH ×2 (02:11→15:02)
--- NOTE | 2023-01-22 03:23 | PN ---
PROGRESS NOTE SUBJECTIVE: This is an 87-year-old white female, waiting for final urine culture to come back prior to going home. She has gram-negative bacilli in urine. She needs broad-spectrum antibiotics, waiting for the culture to come back why the antibiotics were stopped at this point. Prognosis guarded. Continue current treatment. Please see further orders. She wears oxygen at night for COPD. She has mild dementia, UTI, metabolic encephalopathy. Continue current treatment. MMODL / IJN: [id number] /
[2023-01-22] MEDS: LEVOTHYROXINE 50 MCG TAB PO SCH (06:48)
[2023-01-22] MEDS: PANTOPRAZOLE 40 MG TABLET PO SCH ×2 (06:48→17:43)
[2023-01-22] MEDS: IPRATROPIUM-ALBUTEROL 3 ML NEB INHALATION SCH ×4 (09:40→20:13)
[2023-01-22] MEDS: FLUCONAZOLE 100 MG TAB PO SCH (09:45)
[2023-01-22] MEDS: MEMANTINE 5 MG TAB PO SCH ×2 (09:45→20:33)
[2023-01-22] MEDS: ASPIRIN 81 MG PO SCH (09:45)
[2023-01-22] MEDS: POTASSIUM CHLORIDE ER 20 MEQ TAB.ER PO SCH (09:46)
[2023-01-22] MEDS: MULTIVITAMINS, THERA 1 EACH TAB PO SCH (09:46)
[2023-01-22] MEDS: atenoloL 25 MG TAB PO SCH ×2 (09:46→20:33)
--- NOTE | 2023-01-22 13:31 | P.PN ---
Subjective Progress Note Date: 01/21/23 Principal diagnosis: Bacteremia Patient is a 87-year-old female with a past medical history significant for dementia heart failure reflux history of recurrent urinary tract infection patient presented to the hospital about 5 days ago for evaluation of shortness of breath, workup which shows evidence of dilated esophagus for the patient has been evaluated both by surgery and GI services blood culture positive for staphylococcus epidermidis On today's evaluation that is 01/21/2023, the patient continues to be afebrile, the patient is breathing comfortably on 2 L nasal cannula oxygen and denies any chest pain or cough, patient denies abdominal pain, and denies any nausea/vomiting or diarrhea Patient did have white count of 10.77, creatinine 0.7 as of yesterday no labs were drawn today Objective - Vital Signs Vital signs: Vital Signs Temp 98.5 F 01/21/23 07:50 Pulse 84 01/21/23 09:23 Resp 18 01/21/23 08:00 BP 109/62 01/21/23 07:50 Pulse Ox 97 01/21/23 07:50 FiO2 Intake & Output 01/20/23 01/21/23 01/21/23 18:59 06:59 18:59 Intake Total 140 118 Output Total 250 700 Balance -110 -700 118 Intake: Oral 140 118 Output: Urine 250 700 Other: Voiding Method External Catheter External Catheter External Catheter # Voids 1 - Exam GENERAL DESCRIPTION: An elderly female lying in bed in no distress RESPIRATORY SYSTEM: Unlabored breathing , clear to auscultation anteriorly HEART: S1 S2 regular rate and rhythm , ABDOMEN: Soft , no tenderness EXTREMITIES: No edema feet - Labs CBC & Chem 7: 01/20/23 05:25 01/18/23 05:45 Labs: Abnormal Lab Results - Last 24 Hours (Table) 01/20/23 Range/Units 05:25 WBC 10.77 H (4.50-10.00) X 10*3/uL RBC 3.81 L (4.10-5.20) X 10*6/uL Hgb 10.0 L (12.0-15.0) d/dL Hct 32.6 L (37.2-46.3) % MCH 26.2 L (27.0-32.0) pg MCHC 30.7 L (32.0-37.0) d/dL RDW 15.0 H (11.5-14.5) % Eosinophils # 0.01 L (0.04-0.35) X 10*3/uL Microbiology - Last 24 Hours (Table) 01/20/23 00:41 Urine Culture - Preliminary Urine,Catheterized Gram Neg Bacilli 01/19/23 13:38 Blood Culture - Preliminary Blood 01/15/23 02:59 Blood Culture Gram Stain - Final Blood Blood Culture - Final Staphylococcus epidermidis Assessment and Plan (1) Positive blood culture Current Visit: Yes Status: Acute Code(s): R78.81 - BACTEREMIA SNOMED Code(s): 244569548 Plan: 1patient with a positive blood culture with his coagulase-negative staph likely skin contamination as the patient has no clinical disease to go along with it in this patient with no fever or elevated white count 2-blood cultures has been be repeated on 01/19/2023 and so far negative 3- no need for vancomycin, the patient will be monitored closely off antibiotics Dictation was produced using [employer] dictation software. please excuse any grammatical, word or spelling errors. Time with Patient: Less than 30
--- NOTE | 2023-01-22 13:32 | P.PN ---
Subjective Progress Note Date: 01/22/23 Principal diagnosis: Bacteremia Patient is a 87-year-old female with a past medical history significant for dementia heart failure reflux history of recurrent urinary tract infection patient presented to the hospital about 5 days ago for evaluation of shortness of breath, workup which shows evidence of dilated esophagus for the patient has been evaluated both by surgery and GI services blood culture positive for staphylococcus epidermidis On today's evaluation that is 01/22/2023, the patient remains to be afebrile, the patient is breathing comfortably on 2 L nasal cannula supplemental oxygen and denies any shortness of breath, the patient denies having any chest pain or cough, patient denies nausea/vomiting /diarrhea and no abdominal pain, Patient did have white count of 10.77, creatinine 0.7 as of 01/20/2023, no labs were drawn today Objective - Vital Signs Vital signs: Vital Signs Temp 97.7 F 01/22/23 07:00 Pulse 84 01/22/23 12:28 Resp 16 01/22/23 07:00 BP 111/66 01/22/23 07:00 Pulse Ox 95 01/22/23 07:00 FiO2 Intake & Output 01/21/23 01/22/23 01/22/23 18:59 06:59 18:59 Intake Total 355 100 Output Total 500 300 Balance -145 -200 Weight 44.452 kg Intake: Oral 355 100 Output: Urine 500 300 Other: Voiding Method External Catheter External Catheter External Catheter - Exam GENERAL DESCRIPTION: An elderly female lying in bed in no distress RESPIRATORY SYSTEM: Unlabored breathing , clear to auscultation anteriorly HEART: S1 S2 regular rate and rhythm , ABDOMEN: Soft , no tenderness EXTREMITIES: No edema feet - Labs CBC & Chem 7: 01/20/23 05:25 01/18/23 05:45 Labs: Microbiology - Last 24 Hours (Table) 01/20/23 00:41 Urine Culture - Final Urine,Catheterized Escherichia coli Klebsiella pneumoniae 01/19/23 13:38 Blood Culture - Preliminary Blood Assessment and Plan (1) Positive blood culture Current Visit: Yes Status: Acute Code(s): R78.81 - BACTEREMIA SNOMED Code(s): 187122460 Plan: 1patient with a positive blood culture with his coagulase-negative staph likely skin contamination as the patient has no clinical disease to go along with it in this patient with no fever or elevated white count 2-blood cultures has been be repeated on 01/19/2023 and so far negative 3- patient did have urine culture done on 01/20/2023, without a UA is growing E. coli and Klebsiella patient has been started on Azactam we will check a UA to see the need for further antibiotics Time with Patient: Less than 30
[2023-01-22 14:59] LABS: Appearance,Urine Slightly Cloudy (Clear); Bacteria,Urine Many /hpf; Color,Urine Yellow; Mucus,Urine Rare /hpf; RBC,Urine 56 /hpf (0-5); Squamous Epithelial Cell,Urine 6 /hpf (0-4); WBC,Urine >182 /hpf (0-5)
[2023-01-22 15:00] LABS: Bilirubin,Urine Negative (Negative); Blood,Urine Moderate (Negative); Glucose,Urine (UA) Negative (Negative); Ketones,Urine Negative (Negative); Leukocyte Esterase,Urine Large (Negative); Nitrite,Urine Negative (Negative); Protein,Urine Trace (Negative); Urobilinogen,Urine <2.0 mg/dL (<2.0)
[2023-01-22] MEDS: DONEPEZIL 10 MG TAB PO SCH (20:34)
--- NOTE | 2023-01-22 21:11 | PN ---
PROGRESS NOTE SUBJECTIVE: Positive for E. coli, Klebsiella pneumoniae in the urine. Awaiting for final antibiotics susceptible to this. Medications, nothing orally except possibly Bactrim that could be used on discharge. The patient is alert. She is on oxygen at night. She is waiting for Dr. Rivera's recommendations. She is lying in bed. She is comfortable. Creatinine 0.7, white count is 10.77. First blood culture is positive for staph epidermidis and contamination. OBJECTIVE: LUNGS: Clear. HEART: S1, S2. ABDOMEN: Soft. EXTREMITIES: No cyanosis, clubbing, or edema. ASSESSMENT: She is started on Azactam. We will check the UA and see if we can send her home on oral Bactrim tomorrow if it is okay with Dr. Rivera. Otherwise, IV antibiotics will be needed as an outpatient in the residential. Prognosis guarded. Vital signs were reviewed. MMODL / IJN: [id number] /
[2023-01-23] MEDS: AZTREONAM 1 GM in SODIUM CHLORIDE 0.9% 50 ML IVPB SCH (01:13)
[2023-01-23] MEDS: LEVOTHYROXINE 50 MCG TAB PO SCH (06:09)
[2023-01-23] MEDS: PANTOPRAZOLE 40 MG TABLET PO SCH (06:09)
[2023-01-23 07:44] VITALS: BP 114/67; RESP 12; TEMP 98
[2023-01-23] MEDS: IPRATROPIUM-ALBUTEROL 3 ML NEB INHALATION SCH ×3 (08:29→15:58)
[2023-01-23] MEDS: FLUCONAZOLE 100 MG TAB PO SCH (09:13)
[2023-01-23] MEDS: ASPIRIN 81 MG PO SCH (09:13)
[2023-01-23] MEDS: POTASSIUM CHLORIDE ER 20 MEQ TAB.ER PO SCH (09:13)
[2023-01-23] MEDS: atenoloL 25 MG TAB PO SCH (09:13)
[2023-01-23] MEDS: MEMANTINE 5 MG TAB PO SCH (09:14)
[2023-01-23] MEDS: MULTIVITAMINS, THERA 1 EACH TAB PO SCH (09:14)
[2023-01-23 10:34] LABS: HCT 37.1 % (37.2-46.3); HGB 11.5 d/dL (12.0-15.0); MCH 26.1 pg (27.0-32.0); MCV 84.1 FL (80.0-97.0); Mean Platelet Volume 10.2 FL (9.5-12.2); NRBC Per 100 WBC 0 X 10*3/uL (0.00-0.01); Platelet Count 373 X 10*3/uL (140-440); RBC 4.41 X 10*6/uL (4.10-5.20); RDW 15.4 % (11.5-14.5); WBC 11.92 X 10*3/uL (4.50-10.00)
[2023-01-23 10:58] LABS: ALT 10 U/L (8-44); AST 11 U/L (13-35); Albumin 3.4 d/dL (3.8-4.9); Albumin/Globulin Ratio 1.17 Ratio (1.60-3.17); Alkaline Phosphatase 90 U/L (41-126); BUN/Creat Ratio 45.33 Ratio (12.00-20.00); Blood Urea Nitrogen 27.2 mg/dL (9.0-27.0); Calcium 8.8 mg/dL (8.7-10.3); Carbon Dioxide 23.1 mmol/L (21.6-31.8); Chloride 104 mmol/L (96-109); Globulin 2.9 d/dL (1.6-3.3); Glucose 120 mg/dL (70-110); Potassium 4.9 mmol/L (3.5-5.5); Sodium 137 mmol/L (135-145); Total Bilirubin <0.2 mg/dL (0.3-1.2); Total Protein 6.3 d/dL (6.2-8.2)
[2023-01-23 11:38] LABS: Basophils # (M) 0 X 10*3/uL (0.00-0.10); Neutrophils % (M) 78 %
[2023-01-23 11:46] LABS: Eosinophils # (M) 0.48 X 10*3/uL (0.04-0.35); Lymphocytes # (M) 1.19 X 10*3/uL (0.90-5.00); Microcytosis (M) 2+; Monocytes # (M) 0.72 X 10*3/uL (0.20-1.00); Nucleated Red Blood Cells 1 /100 WBCS
[2023-01-23] MEDS ORDERED: SULFAMETHOX-TMP 800-160MG 1 EACH TAB PO SCH (13:30)
[2023-01-23 16:13] VITALS: PULSE 92
== END 2023-01-23 16:00 | disposition home health service (06) ==
LOC: EC 02:17 → 6NMEDSUR 06:54
PROVIDERS: ADMIT Family Medicine; ATTEND Family Medicine
DX: K21.00 Gastro-esophageal reflux disease with esophagitis, without bleeding (principal); K29.50 Unspecified chronic gastritis without bleeding; K44.9 Diaphragmatic hernia without obstruction or gangrene; K22.89 Other specified disease of esophagus; G93.41 Metabolic encephalopathy; J44.1 Chronic obstructive pulmonary disease with (acute) exacerbation; R06.03 Acute respiratory distress; N39.0 Urinary tract infection, site not specified; B96.1 Klebsiella pneumoniae [K. pneumoniae] as the cause of diseases classified elsewhere; B96.20 Unspecified Escherichia coli [E. coli] as the cause of diseases classified elsewhere; F03.A0 Unspecified dementia, mild, without behavioral disturbance, psychotic disturbance, mood disturbance, and anxiety; R78.81 Bacteremia; I50.9 Heart failure, unspecified; D64.9 Anemia, unspecified; Z20.822 Contact with and (suspected) exposure to COVID-19; Z85.3 Personal history of malignant neoplasm of breast; Z85.830 Personal history of malignant neoplasm of bone; Z87.440 Personal history of urinary (tract) infections; Z98.890 Other specified postprocedural states; Z90.11 Acquired absence of right breast and nipple; Z90.49 Acquired absence of other specified parts of digestive tract; Z79.82 Long term (current) use of aspirin; Z79.890 Hormone replacement therapy; Z79.899 Other long term (current) drug therapy
CPT/HCPCS: 96361 ×3; 96365; 96366 ×3; 96375; 99285; 36415; 94640 ×18; 94760 ×5; 93005; 93306; 88305; 83880; 80053 ×3; 83605; 84484; 85025 ×4; 85610; 85730; 81001; 87040 ×2; 87086; 87077 ×2; 87186 ×2; 87636; 71046; 71250; 43239; G0378 ×9; J2930; J2704; J7512 ×5; J0457 ×3

== ENCOUNTER 2023-03-04 11:00 | Emergency (ER) | payer MEDICARE ==
[2023-03-04 11:14] VITALS: RESP 18
--- NOTE | 2023-03-04 11:30 | ED ---
General Adult HPI - General Chief complaint: Upper Respiratory Infection Stated complaint: KRISTA Time Seen by Provider: 03/04/23 11:08 Source: patient, RN notes reviewed, old records reviewed Mode of arrival: EMS Limitations: no limitations - History of Present Illness Initial comments: 87-year-old female presenting from assisted living facility for evaluation of cough which began yesterday. Patient denies fever. She denies pain. She has history of COPD. Patient was transported by paramedics with stable vitals. No oxygen requirement. - Related Data Home Medications Medication Instructions Recorded Confirmed Levothyroxine Sodium [Synthroid] 50 mcg PO DAILY@0800 04/01/17 01/15/23 Multivitamins, Thera [Multivitamin 1 tab PO DAILY@0800 11/02/19 01/15/23 (formulary)] Sennosides [Senokot] 8.6 mg PO DAILY PRN 05/25/22 01/15/23 Aspirin EC [Ecotrin Low Dose] 81 mg PO DAILY@0800 06/15/22 01/15/23 Donepezil [Aricept] 10 mg PO HS@199901/15/23 01/15/23 Fluconazole [Diflucan] 100 mg PO DAILY@0800 01/15/23 01/15/23 Memantine [Namenda] 5 mg PO BID@01/15/23 01/15/23 Menthol-Zinc Oxide Oint 1 applic TOPICAL QID PRN 01/15/23 01/15/23 [Calmoseptine Ointment] Nystatin 100,000Unit/gm Cream 1 applic TOPICAL TID PRN 01/15/23 01/15/23 [Mycostatin Cream] Potassium Chloride ER [K-Dur 20] 20 meq PO DAILY@0800 01/15/23 01/15/23 Previous Rx's Medication Instructions Recorded Ipratropium-Albuterol Nebulize 3 ml INHALATION RT-QID 30 Days 09/28/22 [Duoneb 0.5 mg-3 mg/3 ml Soln] #120 each Pantoprazole [Protonix] 40 mg PO AC-BID 90 Days #180 tab 01/23/23 Sulfamethox-Tmp 800-160Mg [Bactrim 1 each PO BID 10 Days #20 tab 01/23/23 DS 800-160 mg] atenoloL [Tenormin] 25 mg PO BID 90 Days #180 tab 01/23/23 Allergies Allergy/AdvReac Type Severity Reaction Status Date / Time cefuroxime Allergy Intermediate Hives Verified 03/04/23 11:11 Review of Systems ROS Statement: Those systems with pertinent positive or pertinent negative responses have been documented in the HPI. ROS Other: All systems not noted in ROS Statement are negative. 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 Past Anesthesia/Blood Transfusion Reactions: No Reported Reaction Past Psychological History: No Psychological Hx Reported Smoking Status: Former smoker Past Alcohol Use History: None Reported Past Drug Use History: None Reported - Past Family History Father Additional Family Medical History / Comment(s): heart disease. Mother Additional Family Medical History / Comment(s): heart disease. Sister(s) Family Medical History: Cancer Additional Family Medical History / Comment(s): 3 SISTERS WITH BREAST CA General Exam Limitations: no limitations General appearance: alert, in no apparent distress Head exam: Present: atraumatic, normocephalic Eye exam: Present: normal appearance, PERRL ENT exam: Present: normal exam Neck exam: Present: normal inspection. Absent: tenderness, meningismus Respiratory exam: Present: rhonchi (Scattered rhonchi). Absent: respiratory distress, wheezes Cardiovascular Exam: Present: regular rate, normal rhythm GI/Abdominal exam: Present: soft. Absent: distended, tenderness, guarding Extremities exam: Present: normal inspection, normal capillary refill. Absent: pedal edema, calf tenderness Neurological exam: Present: alert, CN II-XII intact Psychiatric exam: Present: normal affect, normal mood Skin exam: Present: warm, dry, intact. Absent: cyanosis, diaphoretic Course Vital Signs 03/04/23 11:07 Temperature 98.6 F Pulse Rate 91 Respiratory 18 Rate Blood Pressure 120/66 O2 Sat by Pulse 96 Oximetry Medical Decision Making - Medical Decision Making Was pt. sent in by a medical professional or institution ([facility], ENVIRONMENTAL SERVICES TECH, urgent care, hospital, or prison...) When possible be specific @ -No Did you speak to anyone other than the patient for history (EMS, parent, family, police, friend...)? What history was obtained from this source @ -No Did you review nursing and triage notes (agree or disagree)? Why? @ -I reviewed and agree with nursing and triage notes Were old charts reviewed (outside hosp., previous admission, EMS record, old EKG, old radiological studies, urgent care reports/EKG's, prison records)? Report findings @ -No old charts were reviewed Differential Diagnosis (chest pain, altered mental status, abdominal pain women, abdominal pain men, vaginal bleeding, weakness, fever, dyspnea, syncope, headache, dizziness, GI bleed, back pain, seizure, CVA, palpatations, mental health, musculoskeletal)? @ Pneumonia, COPD, upper respiratory infection EKG interpreted by me (3pts min.). @ -As above X-rays interpreted by me (1pt min.). @ -chest x-ray negative for focal pneumonia, no acute findings U/S interpreted by me (1pt. min.). @ -None done What testing was considered but not performed or refused? (CT, X-rays, U/S, labs)? Why? @ -None What meds were considered but not given or refused? Why? @ -None Did you discuss the management of the patient with other professionals (professionals i.e. [facility], ENVIRONMENTAL SERVICES TECH, lab, RT, psych nurse, social work instructor, ship's captain, teacher, data officer, rn case manager hospice)? Give summary @ -No Was smoking cessation discussed for >3mins.? @ -No Was critical care preformed (if so, how long)? @ -No Were there social determinants of health that impacted care today? How? (Homelessness, low income, unemployed, alcoholism, drug addiction, transportation, low edu. Level, literacy, decrease access to med. care, [facility], rehab)? @ -No Was there de-escalation of care discussed even if they declined (Discuss DNR or withdrawal of care, Hospice)? DNR status @ -No What co-morbidities impacted this encounter? (DM, HTN, Smoking, COPD, CAD, Cancer, CVA, ARF, Chemo, Hep., AIDS, mental health diagnosis, sleep apnea, morbid obesity)? @ -COPD Was patient admitted / discharged? Hospital course, mention meds given and route, prescriptions, significant lab abnormalities, going to OR and other pertinent info. @ -87-year-old female history of COPD with 1 day of cough. Patient well- appearing with stable vitals, no respiratory distress, no wheezing, minor scattered rhonchi on lung auscultation. Chest x-ray is clear without acute findings. Viral panel negative. Patient stable for discharge at this time. Undiagnosed new problem with uncertain prognosis? @ -No Drug Therapy requiring intensive monitoring for toxicity (Heparin, Nitro, Insulin, Cardizem)? @ -No Were any procedures done? @ -No Diagnosis/symptom? @ -[Cough, upper respiratory infection Acute, or Chronic, or Acute on Chronic? @ -Acute Uncomplicated (without systemic symptoms) or Complicated (systemic symptoms)? @ -default Side effects of treatment? @ -No Exacerbation, Progression, or Severe Exacerbation? @ -No Poses a threat to life or bodily function? How? (Chest pain, USA, OR, pneumonia, PE, COPD, DKA, ARF, appy, cholecystitis, CVA, Diverticulitis, Homicidal, Suicidal, threat to staff... and all critical care pts) @ -[Low risk at this time - Lab Data Lab Results 03/04/23 Range/Units 11:38 Influenza Type A (PCR) Not Detected (Not Detectd) Influenza Type B (PCR) Not Detected (Not Detectd) RSV (PCR) Not Detected (Not Detectd) SARS-CoV-2 (PCR) Not Detected (Not Detectd) Disposition Clinical Impression: Upper respiratory tract infection Disposition: HOME SELF-CARE Condition: Fair Instructions (If sedation given, give patient instructions): Upper Respiratory Infection (ED) Is patient prescribed a controlled substance at d/c from ED?: No Referrals: Victor Hugo Zhong MD [Primary Care Provider] - 1-2 days Time of Disposition: 12:41
--- NOTE | 2023-03-04 11:36 | XR ---
EXAMINATION TYPE: XR chest 2V DATE OF EXAM: 03/04/2023 11:31 AM CLINICAL INDICATION:Female, 87 years old with history of cough; COMPARISON: Chest radiographs from 01/15/2023. TECHNIQUE: XR chest 2V Frontal and lateral views of the chest. FINDINGS: Lungs/Pleura: Prominent interstitial lung markings are seen scattered throughout the lungs. No eviden ce of focal consolidation, pneumothorax or pleural effusion. Pulmonary vascularity: Unremarkable. Heart/mediastinum: Cardiomediastinal silhouette is unremarkable. Musculoskeletal: No acute osseous pathology. Other findings: None IMPRESSION: Chronic changes without acute pulmonary process. No significant change from prior.
[2023-03-04 13:12] VITALS: BP 147/71; PULSE 81; TEMP 99.3
== END 2023-03-04 13:50 | disposition home or self-care (01) ==
LOC: EC 11:00
DX: J06.9 Acute upper respiratory infection, unspecified (principal); J44.9 Chronic obstructive pulmonary disease, unspecified; I50.9 Heart failure, unspecified; K21.9 Gastro-esophageal reflux disease without esophagitis; E07.9 Disorder of thyroid, unspecified; Z87.891 Personal history of nicotine dependence; Z79.890 Hormone replacement therapy; Z79.82 Long term (current) use of aspirin; Z88.1 Allergy status to other antibiotic agents; Z79.899 Other long term (current) drug therapy; Z20.822 Contact with and (suspected) exposure to COVID-19
CPT/HCPCS: 71046; 87636; 99285